=== PATIENT | female | born 1985 | race Caucasian/White ===

== ENCOUNTER 2018-12-23 18:56 | Emergency (ER) | payer BC, SELFPAY ==
[2018-12-23 18:57] VITALS: BP 128/67; PULSE 100; RESP 16; TEMP 37.1; O2SAT 99; BMI 26.4
--- NOTE | 2018-12-23 19:39 | US_ITS ---
STUDY: FIRST TRIMESTER OBSTETRICAL ULTRASOUND REASON FOR EXAM: Female, 33 years old. Nausea and vomiting. Pelvic pain. LMP: November 09, 2018 TECHNIQUE: Transvaginal TECHNICAL QUALITY: Adequate. PRIOR ULTRASOUND: None. FINDINGS: There is visualization of a single gestational sac in a normal intrauterine position on the right side of a bicornuate or septate uterus. The mean sac diameter (MSD) measures 1.8 cm, indicating an estimated gestational age (EGA) of 6 weeks, 5 days. The gestational sac shape is within normal limits. There is 0.6 cm hypoechoic region consistent with subchorionic hemorrhage There is a visualized yolk sac. The yolk sac measures 0.3 cm. The placenta is non-visualized. There is visualization of a live embryo. The crown-rump length (CRL) measures 0.6 cm, indicating an estimated gestational age (EGA) of 6 weeks, 3 days. There is demonstrated cardiac activity with a heart rate of 119 bpm. The estimated gestation age (EGA) by LMP is 6 weeks, 2 days. The estimated date of delivery (AMANDA) by LMP is August 16, 2019. The estimated gestation age (EGA) by US is 6 weeks, 4 days. The estimated date of delivery (AMANDA) by US is August 14, 2019. The uterus measures 6.9 x 6.1 x 4.2 cm. There is splitting of the endometrium suggesting a septate versus bicornuate uterus. There is no demonstrated uterine fibroid. The cervix is closed. The right ovary measures 2.2 x 1.5 x 1.2 cm. There is no right ovarian cyst. There is no visualized right adnexal mass or complex lesion. The left ovary measures 3.9 x 2.8 x 2.1 cm. There is 2.0 cm hypoechoic cyst. There is no fluid in the cul de sac. US/Transvaginal w/Preg US IMPRESSION: Single intrauterine gestation 6 weeks 4 days with estimated due date August 14, 2019. There is small region of subchorionic hemorrhage. There is a complex left adnexal cyst. Electronically Signed: Gabe Verma MD at 21:04 EDT , Service support ,
[2018-12-23] MEDS: 0.9% Normal Saline 1,000 ML 1000 ML IV (19:59)
[2018-12-23] MEDS: Ondansetron 4 MG/2 ML Vial IV (20:00)
[2018-12-23] MEDS: HYDROmorphone 0.5 MG/0.5 ML SYRINGE IV (20:01)
[2018-12-23 20:15] VITALS: RESP 18
[2018-12-23 20:24] LABS: Bacteria 0 SEEN /hpf (None Seen); Mucous, Urine 0 SEEN /hpf (<or=2+); Red Blood Cells-Urine 0 SEEN /hpf (0-5); White Blood Cells 0 SEEN /hpf (0-5)
--- NOTE | 2018-12-23 20:27 | ED.VISSUMM ---
- ER Visit Summary Date of Service: 12/23/18 Chief Complaint: Vomiting History of Present Illness: The patient is a [address] Sadi Arevalo. She is a at approximately 6 weeks by her last menstrual period. She reports that she has been vomiting all day today. She is vomited 8-10 times. No blood or emesis. She has crampy lower abdominal pain is 10 out of 10 at worst to 10 currently. Is worsened by nothing relieved by Tylenol. She has had dysuria that began today as well. No blood in her urine. No vaginal bleeding or discharge. Physical Examination: Vitals: Stable. Afebrile. General: Well-nourished and well-developed. Head: Normocephalic atraumatic. Neck: Supple, no lymphadenopathy. No JVD. Nontender. Cardiovascular: Regular rate and rhythm. No murmurs. Respiratory: No respiratory distress. Clear to auscultation bilaterally. Abdominal: Soft, mild diffuse tenderness palpation with moderate suprapubic tenderness ntender, nondistended, normal bowel sounds. No guarding, rebound, or peritoneal signs. Back: Nontender. Extremities: Nontender, no edema. Skin: Normal color, no rash. Neurologic: Alert and oriented ?3. Cranial nerves II through XII are intact. Normal strength and sensation. Psych: Normal affect. Test Results: Quant is 44,193. Blood type is a positive. UA shows no evidence of infection. No bacteria. Clinical Impression(s) from Imaging Studies Obstetrics Ultrasound 12/23/18 19:39 IMPRESSION: Single intrauterine gestation 6 weeks 4 days with estimated due date August 14, 2019. There is small region of subchorionic hemorrhage. There is a complex left adnexal cyst. Electronically Signed: Gabe Verma MD at 21:04 EDT , Service support , Emergency Department Course and Treatment: Patient was treated with a dose of Zofran IV. She is given a liter of normal saline. She is resting comfortably. Treatment Plan: Patient will be discharged with Zofran. Instructed from Dr. Sadi Arevalo 1-2 days if not improving. Return to the emergency department for any worsening symptoms. Disposition: To home in improved and stable condition. Impression: 1. First trimester . 2. Vomiting. This note was generated with [employer] dictation software. It may contain incorrect words, spelling, and punctuation that were not noted in review of the chart prior to signing ED Disposition - Plan for ED Patient: Disposition: Home or Assisted Living Instructions: ED Preg Morning Sickness Prescriptions: Ondansetron [Zofran Odt] 4 mg PO Q8H PRN PRN #10 tablet PRN Reason: Nausea Referrals: Adrianna Mota MD [STAFF PHYSICIAN] - 1-2 Days if not improving
[2018-12-23 20:37] LABS: Color, Urine Yellow (Yellow); Glucose, Dipstick Normal (Normal); Ketone-Dipstick 50 mg/dl (Negative); Leukocyte Esterase-Dipstick Negative /ul (Negative); Nitrite-Dipstick Negative (Negative); Occult Blood-Urine 25 /ul (Negative); Protein-Dipstick Negative (Negative); Urine Bilirubin Dipstick Negative (Negative); Urine Clarity Clear (Clear); Urine Urobilinogen Normal (Normal); Urine pH 6.5 (5.0 - 8.0)
[2018-12-23 20:43] LABS: Squamous Epithelial Cells - UA 0-5 SEEN /hpf (5-10)
[2018-12-23 21:29] VITALS: BP 112/61; PULSE 84; RESP 16; O2SAT 99
== END 2018-12-23 21:34 | disposition home or self-care (01) ==
LOC: ED 19:53
PROVIDERS: Emergency Provider Emergency Medicine; Family Provider Family Medicine; PCP Family Medicine
DX: O21.9 Vomiting of pregnancy, unspecified (principal); O99.331 Smoking (tobacco) complicating pregnancy, first trimester; Z3A.01 Less than 8 weeks gestation of pregnancy
CPT/HCPCS: 76817; 81001; 84702; 86900; 86901; 96361; 96374; 96375; 99285; J7030; J2405

== ENCOUNTER → 2019-01-05 | Outpatient (CLI) | payer BC, SELFPAY ==
[2019-01-05 14:57] VITALS: BMI 26.4
[2019-01-05 20:13] LABS: Chlamydia Trachomatis by PCR Negative (Negative); Neisserai gonorrhoeae by PCR Negative (Negative); Probe Check PASS; Sample Adequacy Control PASS; Specimen Processing Control PASS
== END | disposition home or self-care (01) ==
LOC: LABSPEC 16:41
PROVIDERS: Family Provider Family Medicine; PCP Family Medicine; Referring Provider Obstetrics & Gynecology; Visit Provider Obstetrics & Gynecology
DX: Z34.90 Encounter for supervision of normal pregnancy, unspecified, unspecified trimester (principal)
CPT/HCPCS: 87491; 87591

== ENCOUNTER → 2019-02-04 | Outpatient (CLI) | payer BC, SELFPAY ==
[2019-02-04 14:57] VITALS: BMI 26.4
[2019-02-04 15:42] LABS: Absolute Lymphocyte Count 2.82 X10^3/ul (0.83-4.51); Absolute Neutrophil Count 7.9 X10^3/uL (2.0-7.7); Basophil# 0.03 X10^3/uL; Basophil% 0.3 % (0-1); Eosinophil# 0.17 X10^3/uL; Eosinophils% 1.4 % (0-5); Lymphocyte # 2.82 X10^3/ul (4.0); Lymphocyte % 23.9 % (19-41); Mean Corp Hgb Conc 34.2 g/gl (32-36); Mean Corpuscular Hgb 29.1 pg (27.0-32.0); Mean Platelet Vol. 10.7 fl (6.2-12.0); Monocyte# 0.85 X10^3/uL; Monocyte% 7.2 % (0-10); Neutrophil # 7.89 X10^3/uL (2.7-7.7); Neutrophil % 66.9 % (47-70); Platelet Count 280 K/mm3 (150-450); RBC Distribution Width CV 13.3 % (11.6-14.6); RBC Distribution Width SD 41.2 fl (35.1-43.9); Red Blood Count 4.47 M/mm3 (4.2-5.4); White Blood Count 11.8 K/mm3 (4.4-11.0)
[2019-02-04 15:55] LABS: POSITIVE COUNT NO; POSITIVE DIFFERENTIAL NO; POSITIVE MORPHOLOGY NO
[2019-02-04 17:03] LABS: HIV - WCH Non-Reactive (Nonreactive); Rubella IgG 43.8 IU/mL
[2019-02-06 03:32] LABS: Rapid Plasmin Reagin (RPR) NONREACTIVE (NONREACTIVE)
[2019-02-06 10:50] LABS: HEPATITIS B SURFACE AG Negative (Negative)
== END | disposition home or self-care (01) ==
LOC: PAVLAB 14:57
PROVIDERS: Obstetrics & Gynecology; Family Provider Family Medicine; PCP Family Medicine; Referring Provider Nurse Practitioner Women's Health; Visit Provider Nurse Practitioner Women's Health
DX: Z34.81 Encounter for supervision of other normal pregnancy, first trimester (principal)
CPT/HCPCS: 36415; 85025; 86592; 86703; 86762; 86850; 86900; 87340

== ENCOUNTER 2019-03-08 11:11 | Emergency (ER) | payer BC, SELFPAY ==
[2019-02-04 14:57] VITALS: BMI 26.4
[2019-03-08 11:12] VITALS: BP 135/74; PULSE 93; RESP 16; TEMP 36.2; BMI 26.6
--- NOTE | 2019-03-08 11:47 | US_ITS ---
STUDY: SECOND AND THIRD TRIMESTER OBSTETRICAL ULTRASOUND - LIMITED REASON FOR EXAM: Female, 33 years old. Cramping, lower abdominal pain, 3 days, history of Crohn's disease, history of bicornuate uterus, . LMP: 11/09/2018 PRIOR ULTRASOUND: Ultrasound transvaginal 12/23/2017 TECHNIQUE: Transabdominal ultrasound evaluation was performed. FINDINGS: Single live intrauterine gestation, cephalic presentation, cardiac rate 152 bpm. Amniotic fluid axial vertical pocket 5.1 cm. Placenta grade 0 posterior not low-lying. Cervical os closed, 3.5 cm in length. The maternal adnexa are not characterized. BIOMETRY: BPD: 3.9 to: 18 weeks, days HC: 14.73: 18 weeks, days AC: 11.5 point: 17 weeks, days FL: 2.28: weeks, 16 days Cephalic index 79% Femur length/abdominal circumference 20% Femur length/biparietal diameter 58% Head circumference/abdominal circumference 1.28 Age by current ultrasound: 17 weeks, 4 days. AMANDA by LMP: 08/12/2019. age by prior US: 17 weeks, 2 days. AMANDA by prior US: 08/14/2019. age by LMP: 17 weeks, 0 days. AMANDA by current US: 08/16/2019. Estimated weight: 184 grams, +/- 27 grams, 55 percentile. Limited anatomic images were obtained for assessment of dates, viability and positioning only. In the limited survey no gross anatomic abnormality was observed. US/OB Limited With Biometrics IMPRESSION: Single live intrauterine gestation. No acute or maternal abnormality is evident. Electronically Signed: Kelechi Layton MD at 14:10 EDT Tel , Service support ,
--- NOTE | 2019-03-08 11:57 | ED.DCSUM_ITS ---
History of Present Illness Chief Complaint: Abd Pain Informant: Patient, Family Onset: Yesterday Current Severity: Mild Narrative: She presents complaining of pelvic cramps that began yesterday and seem to persist today, she is currently 16 weeks by her history she had an ultrasound through Dr. Sadi Arevalo's office that showed 12 weeks IUP she is G1, P0 she been try to get for 5 years, she is quite upset crying that she may be losing the , she indicates she has Crohn's disease is been very stable and that basically is having intermittent pelvic cramps to the right suprapubic and left lower abdomen she had no vaginal bleeding or vaginal discharge normal urinary output normal bowel bladder habits except to note some loose stools, her Crohn's disease has been in very good control with no exacerbations recently Past Medical History - Allergies and Home Meds Allergies/Adverse Reactions: Allergies morphine Adverse Reaction (Verified 03/08/19 11:14) Other NECTARINES Adverse Reaction (Uncoded 03/08/19 11:14) Angioedema Primary Care Physician: Azael Lr MD [Primary Care Provider] - Past Medical History: - - See above in full chart Smoking Status: Current every day smoker Review of Systems General: Denies: Chills, Fever, Sweats Eyes: Denies: Visual changes - bilaterally, Diplopia ENT: Denies: Rhinorrhea, Sore throat Cardiovascular: Denies: Chest pain, Palpitations Respiratory: Denies: Dyspnea, Cough, Dyspnea on exertion Gastrointestinal: Reports: Abdominal pain, - - Pelvic cramps as above. Denies: Nausea, Vomiting, Diarrhea, Melena, Hematochezia Genitourinary: Denies: Dysuria, Hematuria, Frequency Musculoskeletal: Denies: Back pain, Extremity Pain Skin: Denies: Rash, Wounds Neurological: Denies: Headache, Weakness, Numbness Physical Exam Vital Signs/Narrative: Vital Signs Temp Pulse Resp BP 03/08/19 11:12 97.1 F L 93 16 135/74 H General: Well nourished, Well developed, No Acute Distress Head: Normocephalic, Atraumatic Eyes: Perrl, EOMI ENT: Moist mucous membranes, No rhinorrhea Neck: Supple, Nontender Cardiovascular: Regular rate, Regular rhythm, No murmurs Respiratory: No distress, CTA bilaterally, Chest nontender Abdomen: Soft, Nontender, Nondistended, Normal bowel sounds, - - She is abdomen is soft and nontender she is crying she indicates that because of pain but rather because of her concern related to the Back: Nontender, Normal Inspection Extremities: Nontender, No edema Skin: Normal color, No rash Neurological: Alert, Oriented x3, Cranial nerves II-XII grossly intact, Normal Strength, Normal Sensation Psychological: Normal affect, Normal Mood Diagnostic/Tx/Re-eval - Medical Decision Making Given all the above screening labs IV fluids UA ultrasound pain management The patient screening labs are all generally unremarkable she was reports, the pelvic ultrasound shows 17-week single live IUP no acute abnormalities Explained all the above to the patient at this time she understands the need to follow-up with her BUSINESS COMPUTERS TEACHER tomorrow, return for change in symptoms pelvic rest no sex she vomited she expressed concerns about the possibility of miscarriage after explained her that there is nothing at this point time to suggest that, that this is an expectant management type process and she should follow-up with her BUSINESS COMPUTERS TEACHER's rest as above and return for change in symptoms she has assured me this is not related to her Crohn's as a precaution she will continue to take her usual Crohn's precautions Home stable Final impression Pelvic cramps, 17-week live IUP on ultrasound ED Disposition - Plan for ED Patient: Instructions: ABDOMINAL PAIN, Unknown Cause, (Female), Pelvic Pain in : Unclear (2-3 Trimester) Referrals: Azael Lr MD [Primary Care Provider] - Additional Instructions: Pelvic rest no sex follow-up with your BUSINESS COMPUTERS TEACHER tomorrow
[2019-03-08 11:59] LABS: Absolute Lymphocyte Count 2.72 X10^3/ul (0.83-4.51); Absolute Neutrophil Count 8.5 X10^3/uL (2.0-7.7); Basophil# 0.03 X10^3/uL; Basophil% 0.2 % (0-1); Eosinophil# 0.16 X10^3/uL; Eosinophils% 1.3 % (0-5); Hematocrit 35.9 % (37-47); Hemoglobin 12.3 g/dl (12.0-15.0); Lymphocyte # 2.72 X10^3/ul (4.0); Lymphocyte % 21.8 % (19-41); Mean Corp Hgb Conc 34.3 g/gl (32-36); Mean Corpuscular Hgb 29.9 pg (27.0-32.0); Mean Corpuscular Volume 87.1 fL (81-99); Mean Platelet Vol. 10.5 fl (6.2-12.0); Monocyte# 0.96 X10^3/uL; Monocyte% 7.7 % (0-10); Neutrophil # 8.54 X10^3/uL (2.7-7.7); Neutrophil % 68.5 % (47-70); Platelet Count 273 K/mm3 (150-450); RBC Distribution Width CV 13.2 % (11.6-14.6); RBC Distribution Width SD 42.2 fl (35.1-43.9); Red Blood Count 4.12 M/mm3 (4.2-5.4); White Blood Count 12.5 K/mm3 (4.4-11.0)
[2019-03-08 12:00] LABS: POSITIVE COUNT NO; POSITIVE DIFFERENTIAL NO; POSITIVE MORPHOLOGY NO
[2019-03-08] MEDS: HYDROmorphone 0.5 MG/0.5 ML SYRINGE IV (12:02)
[2019-03-08] MEDS: Ondansetron 4 MG/2 ML Vial IV (12:02)
[2019-03-08 12:14] LABS: Bacteria 0 SEEN /hpf (None Seen); Mucous, Urine 0 SEEN /hpf (<or=2+); Squamous Epithelial Cells - UA 0 SEEN /hpf (5-10); White Blood Cells 0 SEEN /hpf (0-5)
[2019-03-08 12:20] LABS: Color, Urine Yellow (Yellow); Glucose, Dipstick Normal (Normal); Ketone-Dipstick Negative (Negative); Leukocyte Esterase-Dipstick Negative /ul (Negative); Nitrite-Dipstick Negative (Negative); Occult Blood-Urine 10 /ul (Negative); Protein-Dipstick Negative (Negative); Urine Bilirubin Dipstick Negative (Negative); Urine Clarity Clear (Clear); Urine Urobilinogen Normal (Normal)
[2019-03-08 12:27] LABS: Red Blood Cells-Urine 0-5 SEEN /hpf (0-5)
[2019-03-08 12:37] LABS: AST(SGOT) 14 U/L (15-37); Alanine Aminotransfer ALT/SGPT 15 U/L (13-56); Albumin, Serum 3.1 g/dL (3.2-5.0); Alkaline Phosphatase 51 U/L (45-117); Bilirubin, Direct < 0.05 mg/dL (0.00-0.30); Globulin 3.4 g/dL (2.2-4.2); Lipase 98 U/L (73-393); Protein, Total 6.5 g/dL (6.4-8.2); hCG Titer Quant., Serum 9215 mIU/mL (1-3)
[2019-03-08] MEDS: HYDROmorphone 1 MG/ML Syringe IV (13:41)
[2019-03-08 15:01] VITALS: PULSE 68; O2SAT 98
== END 2019-03-08 15:02 | disposition home or self-care (01) ==
LOC: ED 12:00
PROVIDERS: Emergency Provider Emergency Medicine; Family Provider Family Medicine; PCP Family Medicine
DX: O26.892 Other specified pregnancy related conditions, second trimester (principal); R10.2 Pelvic and perineal pain; O99.332 Smoking (tobacco) complicating pregnancy, second trimester; F17.200 Nicotine dependence, unspecified, uncomplicated; O99.612 Diseases of the digestive system complicating pregnancy, second trimester; K50.90 Crohn's disease, unspecified, without complications; Z79.899 Other long term (current) drug therapy; Z3A.16 16 weeks gestation of pregnancy
CPT/HCPCS: 76816; 80076; 81001; 83690; 84702; 85025; 87086; 87088; 96374; 96375; 96376; 99282; J7030; A4216; J2405

== ENCOUNTER → 2019-04-06 | Outpatient (CLI) | payer BC, SELFPAY ==
[2019-04-06 13:46] VITALS: BMI 26.9
== END | disposition home or self-care (01) ==
LOC: LABSPEC 15:39
PROVIDERS: Family Provider Family Medicine; PCP Family Medicine; Referring Provider Nurse Practitioner Women's Health; Visit Provider Nurse Practitioner Women's Health
DX: N39.0 Urinary tract infection, site not specified (principal)
CPT/HCPCS: 87086; 87088

== ENCOUNTER → 2019-05-19 | Outpatient (CLI) | payer BC, SELFPAY ==
[2019-05-19 09:04] VITALS: BMI 27.6
[2019-05-19 10:11] LABS: Basophil# 0.06 X10^3/uL; Basophil% 0.4 % (0-1); Eosinophil# 0.22 X10^3/uL; Eosinophils% 1.3 % (0-5); Hematocrit 32.6 % (37-47); Hemoglobin 10.9 g/dL (12.0-15.0); Lymphocyte % 18.7 % (19-41); Mean Corp Hgb Conc 33.4 g/dL (32-36); Mean Corpuscular Hgb 29.8 pg (27.0-32.0); Mean Corpuscular Volume 89.1 fL (81-99); Mean Platelet Vol. 10.5 fl (6.2-12.0); Monocyte# 1.06 X10^3/uL; Monocyte% 6.4 % (0-10); NRBC Flagged by Analyzer 0 % (0-5); Neutrophil # 11.98 X10^3/uL (2.7-7.7); Neutrophil % 72.1 % (47-70); Platelet Count 309 K/mm3 (150-450); RBC Distribution Width CV 13.1 % (11.6-14.6); RBC Distribution Width SD 42.7 fl (35.1-43.9); Red Blood Count 3.66 M/mm3 (4.2-5.4); White Blood Count 16.6 K/mm3 (4.4-11.0)
[2019-05-19 10:19] LABS: Glucose Challenge Gest 1H 50g 144 mg/dL (70-140)
== END | disposition home or self-care (01) ==
LOC: PAVLAB 09:35
PROVIDERS: Family Provider Family Medicine; PCP Family Medicine; Referring Provider Nurse Practitioner Women's Health; Visit Provider Nurse Practitioner Women's Health
DX: O09.00 Supervision of pregnancy with history of infertility, unspecified trimester (principal); Z3A.27 27 weeks gestation of pregnancy
CPT/HCPCS: 36415; 82950; 85025

== ENCOUNTER → 2019-05-21 | Outpatient (CLI) | payer BC, SELFPAY ==
[2019-05-19 09:04] VITALS: BMI 27.6
[2019-05-21 07:33] LABS: Glucose GTT-Gestation. Fasting 120 mg/dL (<105)
[2019-05-21 08:42] LABS: Glucose GTT-Gestational 1 Hr 219 mg/dL (<190)
[2019-05-21 09:44] LABS: Glucose GTT-Gestational 2 Hr 155 mg/dL (<165)
[2019-05-21 11:19] LABS: Glucose GTT-Gestational 3 Hr 110 L (<145)
== END | disposition home or self-care (01) ==
LOC: LAB 06:54
PROVIDERS: Family Provider Family Medicine; PCP Family Medicine; Referring Provider Nurse Practitioner Women's Health; Visit Provider Nurse Practitioner Women's Health
DX: O99.810 Abnormal glucose complicating pregnancy (principal); Z3A.00 Weeks of gestation of pregnancy not specified
CPT/HCPCS: 36415; 82951; 82952

== ENCOUNTER 2019-06-03 11:55 | Outpatient (CLI) | payer BC, SELFPAY ==
[2019-05-19 09:04] VITALS: BMI 27.6
[2019-06-03 12:04] VITALS: BMI 27.0
--- NOTE | 2019-06-03 22:16 | OB.TRI.PN ---
Progress Notes Date of Service: 06/03/19 Progress Note: Patient presents for triage evaluation secondary to decreased movement FHT: 130 with 10 x 10 accelerations moderate variability reactive no decelerations category I tracing [place]: No contractions Assessment and plan: Decreased movement reactive NST, reassuring maternal and status patient discharged to home to follow-up as scheduled. Appropriate for gestational age. See problem list details for additional plan information. Multi Select Codes - Urinary/Genital Urinary/Genital CPT Codes: 59168-41 non-stress test Interp
== END 2019-06-03 12:53 | disposition home or self-care (01) ==
LOC: WPOUT 12:00 → OBT 12:01
PROVIDERS: Family Provider Family Medicine; PCP Family Medicine; Referring Provider Obstetrics & Gynecology; Visit Provider Obstetrics & Gynecology
DX: O36.8190 Decreased fetal movements, unspecified trimester, not applicable or unspecified (principal); Z3A.00 Weeks of gestation of pregnancy not specified
CPT/HCPCS: 59025; 59050; 99218; G0378

== ENCOUNTER 2019-06-06 12:50 | Outpatient (CLI) | payer BC, SELFPAY ==
[2019-06-06 14:24] VITALS: BMI 27.3
--- NOTE | 2019-06-08 01:02 | OB.TRI.PN ---
Progress Notes Date of Service: 06/06/19 Progress Note: Patient presents for triage evaluation secondary to persistent ear infection and abdominal cramping FHT: 140 Moderate variability reactive no decelerations category I tracing [place]: No regular contractions Assessment and plan: Ear infection with abdominal pain reactive NST, reassuring maternal and status patient discharged to home to follow-up as scheduled. See problem list details for additional plan information. - Problem List (1) Ear infection Status: Acute (2) Abdominal pain during in third trimester Status: Acute Comment: no PTL see 06/06 in triage Multi Select Codes - Urinary/Genital Urinary/Genital CPT Codes: 09413-17 non-stress test Interp
== END 2019-06-06 14:35 | disposition home or self-care (01) ==
LOC: WPOUT 13:18 → WP 13:21
PROVIDERS: Family Provider Family Medicine; PCP Family Medicine; Visit Provider Obstetrics & Gynecology
DX: O26.893 Other specified pregnancy related conditions, third trimester (principal); R10.9 Unspecified abdominal pain; H66.90 Otitis media, unspecified, unspecified ear; Z3A.00 Weeks of gestation of pregnancy not specified
CPT/HCPCS: 59025; 59050; 99218; G0378

== ENCOUNTER 2019-06-16 10:30 | Outpatient (RCR) | payer BC, SELFPAY ==
[2019-05-19 09:04] VITALS: BMI 27.6
[2019-06-09 08:16] VITALS: BMI 27.3
== END 2019-06-16 23:59 | disposition home or self-care (01) ==
LOC: DC 10:30
PROVIDERS: Family Provider Family Medicine; PCP Family Medicine; Visit Provider Nurse Practitioner Women's Health
DX: Z71.3 Dietary counseling and surveillance (principal); O24.419 Gestational diabetes mellitus in pregnancy, unspecified control; Z3A.00 Weeks of gestation of pregnancy not specified
CPT/HCPCS: 97802

== ENCOUNTER → 2019-07-21 13:44 | Outpatient (CLI) | payer BC, SELFPAY ==
[2019-07-09 09:20] VITALS: BMI 27.3
--- NOTE | 2019-07-21 13:45 | US_ITS ---
STUDY: SECOND AND THIRD TRIMESTER OBSTETRICAL ULTRASOUND REASON FOR EXAM: Female, 33 years old . growth. LMP: November 09, 2018. TECHNIQUE: Transabdominal TECHNICAL QUALITY: Adequate. PRIOR ULTRASOUND: Comparison is made with prior study dated March 08, 2019. FINDINGS: There is a single intrauterine fetus. The fetus is in a cephalic presentation. There is demonstrated cardiac activity with a heart rate of 143 bpm. There is a normal amniotic fluid volume. The largest amniotic fluid pocket measures 3.9 cm. The amniotic fluid index (MANSOOR) is 11.6 cm. The placenta is posterior in location and is not low lying. There are Grade 2 placental changes. The cervix was unable to be measured due to the positioning. The adnexal regions are not visualized. BIOMETRY: BPD: 9.0 cm: 36 weeks, 4 days HC: 32.1 cm: 36 weeks, 1 days AC: 30.5 cm: 34 weeks, 2 days FL: 6.5 cm: 33 weeks, 2 days CI: 83% FL/BPD: 72% FL/HC: FL/AC: 21% HC/AC: 1.05 age by current US: 35 weeks, 0 days. AMANDA by current US: August 25, 2019. Estimated weight: 2453 grams, +/- 363 grams, 12 %. age by prior US: 36 weeks, 6 days. AMANDA by prior US: August 12, 2019. Age by LMP: 36 weeks, 2 days. AMANDA by LMP: August 16, 2019. US/OB Limited With Biometrics IMPRESSION: Single live intrauterine gestation with a mean gestational age of 36 weeks and 6 days. Measurements obtained today fall within normal expected range. Electronically Signed: Leo Ruiz, at 12:59 EST , Service support ,
== END ==
PROVIDERS: Family Provider Family Medicine; PCP Family Medicine; Referring Provider Obstetrics & Gynecology; Visit Provider Obstetrics & Gynecology
DX: O24.410 Gestational diabetes mellitus in pregnancy, diet controlled (principal); Z3A.00 Weeks of gestation of pregnancy not specified
CPT/HCPCS: 76816

== ENCOUNTER → 2019-07-23 13:15 | Outpatient (CLI) | payer BC, SELFPAY ==
[2019-07-23 10:08] VITALS: BMI 27.3
== END ==
PROVIDERS: Family Provider Family Medicine; PCP Family Medicine; Referring Provider Obstetrics & Gynecology; Visit Provider Obstetrics & Gynecology
DX: O09.00 Supervision of pregnancy with history of infertility, unspecified trimester (principal)
CPT/HCPCS: 87081

== ENCOUNTER 2019-07-31 20:26 | Outpatient (CLI) | payer BC, SELFPAY ==
[2019-07-28 08:43] VITALS: BMI 27.3
[2019-07-31] MEDS: Lactated Ringers 1,000 ML 999 ML IV (21:05)
[2019-07-31 21:31] LABS: Absolute Lymphocyte Count 3.38 X10^3/uL (0.83-4.51); Absolute Neutrophil Count 8.4 X10^3/uL (2.0-7.7); Basophil# 0.05 X10^3/uL; Basophil% 0.4 % (0-1); Eosinophil# 0.14 X10^3/uL; Eosinophils% 1.1 % (0-5); Hematocrit 38.5 % (37-47); Hemoglobin 13.1 g/dL (12.0-15.0); Lymphocyte # 3.38 X10^3/ul (4.0); Lymphocyte % 26.2 % (19-41); Mean Corpuscular Hgb 29.1 pg (27.0-32.0); Mean Corpuscular Volume 85.6 fL (81-99); Mean Platelet Vol. 12.6 fl (6.2-12.0); Monocyte# 0.87 X10^3/uL; Monocyte% 6.7 % (0-10); NRBC Flagged by Analyzer 0 % (0-5); Neutrophil # 8.42 X10^3/uL (2.7-7.7); Neutrophil % 65.1 % (47-70); Platelet Count 305 K/mm3 (150-450); RBC Distribution Width CV 15.4 % (11.6-14.6); RBC Distribution Width SD 47.9 fl (35.1-43.9); White Blood Count 12.9 K/mm3 (4.4-11.0)
[2019-07-31 21:53] VITALS: BMI 27.3
[2019-07-31] MEDS: Ondansetron 4 MG/2 ML Vial IM (22:04)
[2019-07-31 22:30] LABS: Mucous, Urine 0 SEEN /hpf (<or=2+)
[2019-07-31] MEDS: Lactated Ringers 1,000 ML 125 ML IV (22:30)
[2019-07-31 22:42] LABS: Color, Urine Yellow (Yellow); Glucose, Dipstick Normal (Normal); Ketone-Dipstick 15 mg/dl (Negative); Leukocyte Esterase-Dipstick 25 /ul (Negative); Nitrite-Dipstick Negative (Negative); Occult Blood-Urine Negative /ul (Negative); Protein-Dipstick Negative (Negative); Urine Bilirubin Dipstick Negative (Negative); Urine Clarity Sl. Cloudy (Clear); Urine Urobilinogen Normal (Normal)
[2019-07-31 22:44] LABS: Squamous Epithelial Cells - UA 0-5 SEEN /hpf (5-10)
[2019-07-31 22:45] LABS: Bacteria 1+ /hpf (None Seen)
[2019-07-31] MEDS: Acetaminophen 500 MG Tablet 1000 MG PO (22:45)
[2019-07-31 22:46] LABS: Red Blood Cells-Urine 0-5 SEEN /hpf (0-5); White Blood Cells 0-5 SEEN /hpf (0-5)
--- NOTE | 2019-08-03 17:54 | OB.TRI.PN ---
Progress Notes Date of Service: 07/31/19 Progress Note: seen for nausea FHT: 130 Moderate variability reactive no decelerations category I tracing [place]: irregular Contractions A/P: nause reactive nst given IVFs doing better now Laboratory Studies: Laboratory Tests 07/31/19 07/31/19 Range/Units 22:20 21:05 WBC 12.9 H (4.4-11.0) K/mm3 RBC 4.50 (4.2-5.4) M/mm3 Hgb 13.1 (12.0-15.0) g/dL Hct 38.5 (37-47) % MCV 85.6 (81-99) fL MCH 29.1 (27.0-32.0) pg MCHC 34.0 (32-36) g/dL RDW Std Deviation 47.9 H (35.1-43.9) fl RDW Coeff of Dimitrios 15.4 H (11.6-14.6) % Plt Count 305 (150-450) K/mm3 MPV 12.6 H (6.2-12.0) fl Immature Gran % (Auto) 0.500 (0.0-0.9) % Neut % (Auto) 65.1 (47-70) % Lymph % (Auto) 26.2 (19-41) % [place] % (Auto) 6.7 (0-10) % Eos % (Auto) 1.1 (0-5) % Baso % (Auto) 0.4 (0-1) % Absolute Neuts (auto) 8.4 H (2.0-7.7) X10^3/uL Absolute Lymphs (auto) 3.38 (0.83-4.51) X10^3/uL Nucleated RBC % 0 (0-5) % Urine Color Yellow (Yellow) Urine Clarity Sl. Cloudy (Clear) Urine pH 7.0 (5.0 - 8.0) Ur Specific [place] 1.010 (1.002-1.030) Urine Protein Negative (Negative) mg/dl Urine Glucose (UA) Normal (Normal) mg/dl Urine Ketones 15 H (Negative) mg/dl Urine Occult Blood Negative (Negative) /ul Urine Nitrite Negative (Negative) Urine Bilirubin Negative (Negative) mg/dL Urine Urobilinogen Normal (Normal) mg/dl Ur Leukocyte Esterase 25 H (Negative) /ul Urine RBC 0-5 SEEN (0-5) /hpf Urine WBC 0-5 SEEN (0-5) /hpf Ur Squamous Epith Cells 0-5 SEEN (5-10) /hpf Urine Bacteria 1+ (None Seen) /hpf Urine Mucus 0 SEEN (<or=2+) /hpf Multi Select Codes - Urinary/Genital Urinary/Genital CPT Codes: 41972-71 non-stress test Interp
== END 2019-07-31 23:48 | disposition home or self-care (01) ==
LOC: WPOUT 21:01 → WP 21:01
PROVIDERS: Family Provider Family Medicine; PCP Family Medicine; Referring Provider Obstetrics & Gynecology; Visit Provider Obstetrics & Gynecology
DX: O26.899 Other specified pregnancy related conditions, unspecified trimester (principal); R11.0 Nausea; Z3A.00 Weeks of gestation of pregnancy not specified
CPT/HCPCS: 96360; 96372; 36415; 59025; 59050; 81001; 85025; 99218; J7120; G0378; J2405

== ENCOUNTER → 2019-08-12 16:23 | Outpatient (CLI) | payer BC, SELFPAY ==
[2019-08-12 08:43] VITALS: BMI 28.0
--- NOTE | 2019-08-12 16:26 | US_ITS ---
STUDY: SECOND AND THIRD TRIMESTER OBSTETRICAL ULTRASOUND - LIMITED REASON FOR EXAM: Female, 33 years old MANSOOR only. LMP: November 09, 2018. PRIOR ULTRASOUND: December 23, 2018, March 08, 2019 and July 21, 2019. TECHNIQUE: Transabdominal TECHNICAL QUALITY: Adequate. FINDINGS: There is a single intrauterine fetus. The fetus is in a cephalic presentation. There is demonstrated cardiac activity with a heart rate of 156 bpm. There is decreased amniotic fluid volume consistent with oligohydramnios. The largest amniotic fluid pocket measures 3.74 cm. The amniotic fluid index (MANSOOR) is 5.17 cm. The placenta is posterior in location and is not low lying. There are Grade 3 placental changes. The cervix obscured Age by LMP: 34 weeks, 6 days. AMANDA by LMP: August 17, 2019.. age by prior US: 34 weeks, 3 days. AMANDA by prior US: August 14, 2019.. US/OB Limited (No Biometrics) IMPRESSION: 1. Live single intrauterine in a vertex presentation. 2. Oligohydramnios. The MANSOOR is 5.17 cm. 3. Posterior grade 3 placenta. Electronically Signed: Kristian Dennis DO at 17:00 EST Tel [phone], Service support ,
== END ==
PROVIDERS: Family Provider Family Medicine; PCP Family Medicine; Referring Provider Obstetrics & Gynecology; Visit Provider Obstetrics & Gynecology
DX: O09.00 Supervision of pregnancy with history of infertility, unspecified trimester (principal); Z3A.00 Weeks of gestation of pregnancy not specified
CPT/HCPCS: 76815

== ENCOUNTER 2019-08-12 16:45 | Inpatient (IN) | payer BC, SELFPAY ==
[2019-08-12 08:43] VITALS: BMI 28.0
[2019-08-12 16:54] VITALS: BMI 27.4
[2019-08-12 17:46] LABS: Absolute Lymphocyte Count 2.93 X10^3/uL (0.83-4.51); Absolute Neutrophil Count 7.3 X10^3/uL (2.0-7.7); Basophil# 0.05 X10^3/uL; Basophil% 0.4 % (0-1); Eosinophils% 0.9 % (0-5); Hematocrit 39.5 % (37-47); Hemoglobin 13.5 g/dL (12.0-15.0); Lymphocyte # 2.93 X10^3/ul (4.0); Lymphocyte % 26.3 % (19-41); Mean Corp Hgb Conc 34.2 g/dL (32-36); Mean Corpuscular Hgb 29.3 pg (27.0-32.0); Mean Corpuscular Volume 85.9 fL (81-99); Mean Platelet Vol. 12.6 fl (6.2-12.0); Monocyte# 0.68 X10^3/uL; Monocyte% 6.1 % (0-10); NRBC Flagged by Analyzer 0 % (0-5); Neutrophil # 7.31 X10^3/uL (2.7-7.7); Neutrophil % 65.8 % (47-70); Platelet Count 251 K/mm3 (150-450); RBC Distribution Width CV 15.6 % (11.6-14.6); RBC Distribution Width SD 48.1 fl (35.1-43.9); White Blood Count 11.1 K/mm3 (4.4-11.0)
[2019-08-12] MEDS: 0.9% Normal Saline Single 100 ML IV.SOLN. IY (19:16)
[2019-08-12] MEDS: Oxytocin 30 units/NS 500 ml 30 UNITS/500 ML IV.SOLN IV (20:24)
[2019-08-12] MEDS: 0.9% Saline Lock 10 ML Syringe IV ×2 (20:24→23:36)
[2019-08-12] MEDS: Lactated Ringers 1,000 ML 50 ML IV (20:25)
[2019-08-12 20:45] LABS: Bedside Glucose 95 mg/dL (70-110)
[2019-08-12] MEDS: Acetaminophen 325 MG Tablet PO (22:44)
[2019-08-12] MEDS: Ondansetron 4 MG/2 ML Vial IV (23:36)
[2019-08-13 00:40] LABS: Bedside Glucose 88 mg/dL (70-110)
[2019-08-13] MEDS: Nalbuphine 10 MG/ML Ampul IV (01:23)
[2019-08-13 04:11] LABS: Bedside Glucose 115 mg/dL (70-110)
[2019-08-13 04:51] LABS: Bedside Glucose 100 mg/dL (70-110)
[2019-08-13 06:00] LABS: Bedside Glucose 98 mg/dL (70-110)
[2019-08-13] MEDS: Ondansetron 4 MG/2 ML Vial IV ×2 (07:04→12:03)
[2019-08-13] MEDS: Lactated Ringers 500 ML 999 ML IV ×2 (07:57→12:06)
[2019-08-13] MEDS: fentaNYL-bupivacaine (epidural) 100 ML BAG EPIDURAL (08:48)
[2019-08-13 09:26] LABS: Bedside Glucose 108 mg/dL (70-110)
[2019-08-13] MEDS: Lactated Ringers 1,000 ML 200 ML IV (10:19)
[2019-08-13 10:56] LABS: Bedside Glucose 102 mg/dL (70-110)
[2019-08-13 12:00] LABS: Bedside Glucose 95 mg/dL (70-110)
[2019-08-13] MEDS: Oxytocin 30 units/NS 500 ml 30 UNITS/500 ML IV.SOLN 334 UNITS IV (14:38)
[2019-08-13 14:46] LABS: Bedside Glucose 98 mg/dL (70-110)
[2019-08-13 14:46] LABS: Bedside Glucose 94 mg/dL (70-110)
[2019-08-13 15:36] LABS: Bedside Glucose 90 mg/dL (70-110)
[2019-08-13] MEDS: Acetaminophen 325 MG Tablet PO (16:36)
--- NOTE | 2019-08-13 17:31 | HP.PCM_ITS ---
- Problem List (1) Gestational diabetes Status: Acute Qualifiers: Gestational diabetes mellitus control: diet-controlled Trimester: second trimester Qualified Code(s): O24.410 - Gestational diabetes mellitus in , diet controlled Comment: check blood sugars, diet controlled, nutrition consult. growth normal @ 36 wks, repeat with MANSOOR @ 40 wks. deliver bt 39-40 weeks (2) Anemia affecting Status: Acute Qualifiers: Trimester: second trimester Qualified Code(s): O99.012 - Anemia complicating , second trimester Comment: iron added with PNV, check cbc at 36 weeks (3) Anxiety during Status: Acute Comment: sees psychiatry, cymbalta and xanax in the past (4) Crohn's disease Status: Acute Qualifiers: Gastrointestinal tract location: unspecified location Digestive disease complication type: without complication Qualified Code(s): K50.90 - Crohn's disease, unspecified, without complications Comment: no meds, remission (5) Tobacco use affecting , antepartum Status: Acute Comment: encouraged cessation/quit (6) Status: Acute Qualifiers: Weeks of gestation: 39 weeks Qualified Code(s): Z3A.39 - 39 weeks gestation of Comment: Carrier and NIPT low risk. afp screen negative. nl anatomy. (7) Supervision of with history of infertility Status: Acute Comment: PRR AMANDA 08/16/19 boy Janee Jonny (8) Oligohydramnios Status: Acute History Date of Admission: 08/12/19 Final AMANDA: 08/16/19 Gestational age: 39 Weeks and 5 Days History of this : This is a 33 year-old, G1Po, at 39 weeks gestational age presents for IOL secondary to GDMA1 and oligohydramnios. Medical History: Medical History (Last Reviewed 08/12/19 @ 08:43 by Anuja Rothman) Anxiety F41.9 Crohns disease K50.90 Depression F32.9 Allergies morphine Adverse Reaction (Verified 08/12/19 08:43) Other NECTARINES Adverse Reaction (Uncoded 07/31/19 21:50) Angioedema Home Medications: Home Medications Pnv No.95/Ferrous Fum/Folic AC [ Caplet] 1 ea PO DAILY 12/23/18 dicyclomine 20 mg tablet 20 mg PO DAILY PRN PRN 01/05/19 Blood Sugar Diagnostic [True Metrix Glucose Test Strip] See Rx Instructions .ROUTE .MEDSUPPLY 06/03/19 Blood-Glucose Meter [True Metrix Air Glucose Meter] See Rx Instructions .ROUTE .MEDSUPPLY 06/03/19 Citalopram [Celexa] 20 mg PO DAILY 08/12/19 Ferrous Sulfate [Iron] 325 mg PO DAILY 08/12/19 Smoking Status: Former smoker NST - FHR Rate Baby A Baseline: 130 Variability:: Moderate Accelerations:: 15 x 15 Decelerations:: None NST Reactive:: Yes FHR Category:: Category I History Past Pregnancies: Past Pregnancies Delivery Date Name GA/ Weeks Outcome Route Wt Sex Labor Length Anesthesia Delivery Location Provider FOB Labs: Laboratory Results 08/14/19 04:42 POC Glucose 89 Mom's Labs & Results 08/12/19 08/12/19 08/12/19 17:20 17:20 20:26 WBC 11.1 H RBC 4.60 Hgb 13.5 Hct 39.5 MCV 85.9 MCH 29.3 MCHC 34.2 RDW Std Deviation 48.1 H RDW Coeff of Dimitrios 15.6 H Plt Count 251 MPV 12.6 H Immature Gran % (Auto) 0.500 Neut % (Auto) 65.8 Lymph % (Auto) 26.3 [place] % (Auto) 6.1 Eos % (Auto) 0.9 Baso % (Auto) 0.4 Absolute Neuts (auto) 7.3 Absolute Lymphs (auto) 2.93 Nucleated RBC % 0 POC Glucose 95 Blood Type A POSITIVE Antibody Screen NEGATIVE 08/13/19 08/13/19 08/13/19 00:31 03:58 04:44 WBC RBC Hgb Hct MCV MCH MCHC RDW Std Deviation RDW Coeff of Dimitrios Plt Count MPV Immature Gran % (Auto) Neut % (Auto) Lymph % (Auto) [place] % (Auto) Eos % (Auto) Baso % (Auto) Absolute Neuts (auto) Absolute Lymphs (auto) Nucleated RBC % POC Glucose 88 115 H 100 Blood Type Antibody Screen 08/13/19 08/13/19 08/13/19 05:45 09:09 10:41 WBC RBC Hgb Hct MCV MCH MCHC RDW Std Deviation RDW Coeff of Dimitrios Plt Count MPV Immature Gran % (Auto) Neut % (Auto) Lymph % (Auto) [place] % (Auto) Eos % (Auto) Baso % (Auto) Absolute Neuts (auto) Absolute Lymphs (auto) Nucleated RBC % POC Glucose 98 108 102 Blood Type Antibody Screen 08/13/19 08/13/19 08/13/19 11:42 12:58 13:49 WBC RBC Hgb Hct MCV MCH MCHC RDW Std Deviation RDW Coeff of Dimitrios Plt Count MPV Immature Gran % (Auto) Neut % (Auto) Lymph % (Auto) [place] % (Auto) Eos % (Auto) Baso % (Auto) Absolute Neuts (auto) Absolute Lymphs (auto) Nucleated RBC % POC Glucose 95 94 98 Blood Type Antibody Screen 08/13/19 08/14/19 15:32 04:42 WBC RBC Hgb Hct MCV MCH MCHC RDW Std Deviation RDW Coeff of Dimitrios Plt Count MPV Immature Gran % (Auto) Neut % (Auto) Lymph % (Auto) [place] % (Auto) Eos % (Auto) Baso % (Auto) Absolute Neuts (auto) Absolute Lymphs (auto) Nucleated RBC % POC Glucose 90 89 Blood Type Antibody Screen Course Did the patient receive Yes care? Labs Blood Type: A RH: POSITIVE RPR/VDRL/Syphilis Nonreactive Rubella status Immune HbSAg Negative Date Done: 02/04/19 Chlamydia Negative Gonorrhea Negative HIV/AIDS Non-Reactive Group B Strep: Negative Current Obstetrical History Gestational Diabetes Yes Incompetent Cervix No Infertility No IUGR No Macrosomia No Hypertension/Pre-eclampsia No Placenta Previa/Abruption No PTL/PROM No Uterine anomaly No Oligohydramnios Yes Polyhydramnios No Multiple gestation No Past Medical History Asthma No Diabetes No Hypertension No Heart disease No Mitral valve prolapse No Neurologic/Seizure disorder/ No Migraines Kidney disease No Liver disease No Varicosities No Clotting disorders/Hx of DVT No Thyroid Dysfunction No Other medical diseases Yes: crohnes Psychiatric disorders Yes: anxiety, depression Major trauma No Abnormal PAP smear No Sleep apnea No Mammogram in the last 2 years No Social History Marital Status: Alleged father jonny avitia Hx Smoking No Smoking Status Former smoker Expected Delivery Method: Spontaneous Vaginal Review of Systems Constitutional: Denies: Fever, Malaise Eyes: Denies: Blurred vision, Vision Change HEENT: Denies: Head Aches, Visual Changes Cardiovascular: Denies: Chest Pain, Palpitations Respiratory: Denies: Cough, Shortness of Breath, Wheezing Gastrointestinal: Denies: Abdominal Pain, Diarrhea, Nausea, Vomiting Genitourinary: Denies: Dysuria, Hematuria Musculoskeletal: Denies: Joint Pain, Muscle pain Skin: Denies: Lesions, Rash Neurological: Denies: Blurred vision, Focal weakness, Headaches Psychiatric: Denies: Anxiety, Depression Endocrine: Denies: Heat/ Cold Intolerance Hematologic/ Lymphatic: Denies: Easy Bruising, Easy Bleeding Physical Exam General: Alert, Cooperative, No apparent distress HEENT: Atraumatic, Normocephalic. Negative for: Thyromegaly, Lymphadenopathy Cardiovascular: Regular rate Lungs: Normal air movement Abdomen: Soft, Non Tender, Gravid Neurological: Deep Tendon Reflexes 2+/4 and Symmetrical, Neuro grossly intact. Negative for: Clonus [employer] WORKER: Normal external genitalia. Negative for: Vulvar lesions Estimated gestational size: Appropriate for gestational size Presentation: Cephalic Assessment/Plan All Active Problems (Last Reviewed 08/12/19 @ 08:43 by Anuja Rothman) Oligohydramnios (Acute) Gestational diabetes (Acute) Anemia affecting (Acute) Anxiety during (Acute) Crohn's disease (Acute) Tobacco use affecting , antepartum (Acute) (Acute) Supervision of with history of infertility (Acute) Abdominal pain during in third trimester (Resolved) Ear infection (Resolved) This is a 33 year-old, , at 39 weeks gestational age presents for IOL sec gdma1. gbs neg oligo gdma1 BS q 1-4 hrs pit and fb IOL epi PRN
--- NOTE | 2019-08-13 17:33 | OP.PCM_ITS ---
Multi Select Codes - Urinary/Genital Urinary/Genital CPT Codes: 99097 Vaginal Delivery global pkg - vacuum
--- NOTE | 2019-08-13 17:33 | PCM.OPRPT ---
Multi Select Codes - Urinary/Genital Urinary/Genital CPT Codes: 87353 Vaginal Delivery global pkg - vacuum
[2019-08-13 19:54] VITALS: BP 128/53; PULSE 76; RESP 16; TEMP 36.8
[2019-08-13] MEDS: oxyCODONE 5 MG Tablet PO (20:03)
[2019-08-13 23:30] VITALS: BP 119/61; PULSE 73; RESP 16; TEMP 36.7
[2019-08-14 02:56] VITALS: BP 113/55; PULSE 65; RESP 16; TEMP 36.6
[2019-08-14 04:51] LABS: Bedside Glucose 89 mg/dL (70-110)
[2019-08-14] MEDS: oxyCODONE 5 MG Tablet PO ×3 (06:24→20:32)
[2019-08-14 07:59] VITALS: BP 108/52; PULSE 60; RESP 18; TEMP 36.4
[2019-08-14 13:15] VITALS: BP 113/56; PULSE 73; RESP 18; TEMP 36.4
[2019-08-14] MEDS: Naproxen 250 MG Tablet 500 MG PO ×2 (14:31→22:31)
[2019-08-14] MEDS: Acetaminophen 500 MG Tablet 1000 MG PO (18:32)
[2019-08-14 20:20] VITALS: BP 116/66; PULSE 71; RESP 18; TEMP 36.5; O2SAT 98
[2019-08-15 02:01] VITALS: BP 128/64; PULSE 77; RESP 16; TEMP 36.6; O2SAT 98
--- NOTE | 2019-08-15 07:02 | PCM.PN.OB ---
Patient Problems: Active and Suspected Problems (Last Reviewed 08/12/19 @ 08:43 by Anuja Rothman) Oligohydramnios (Acute) Subjective: doing well no complaints pain controlled no CP SOB N V ambulating well tolerating po lochia moderate, going well - Physical Exam Vitals/I&O's: Vital Signs Temp Pulse Resp BP Pulse Ox 97.8 F 77 16 128/64 H 98 08/15/19 02:01 08/15/19 02:01 08/15/19 02:01 08/15/19 02:01 08/15/19 02:01 Oxygen Delivery Method Room Air Weight: 160 lb 0.889 oz Body Mass Index (BMI) 27.4 Intake and Output for Last 24 Hours 08/13/19 08/14/19 08/15/19 23:59 23:59 23:59 Intake Total 3603.34 / 3603.34 Output Total 1400 / 1400 Balance 2203.34 / 2203.34 General: Alert, Oriented x3 Current Medications Acetaminophen (Tylenol) 1,000 mg PO Q8H PRN PRN PRN Reason: Pain Score 1-3/10 Last Admin: 08/14/19 18:32 Dose: 1,000 mg Documented by: Bisacodyl (Dulcolax) 10 mg RECTAL UD PRN PRN Reason: If no BM Dibucaine (Dibucaine) 1 applic TOPICAL TID PRN PRN; Protocol PRN Reason: Discomfort Glucagon () 1 mg IM .X1 PRN PRN Reason: Hypoglycemia Hydrocortisone (Hytone) 1 applic TOPICAL TID PRN PRN; Protocol PRN Reason: Discomfort Dextrose (Dextrose 10%-Water) 250 mls @ 999 mls/hr IV X1 PRN; Protocol PRN Reason: HYPOGLYCEMIA Methylergonovine Maleate (Methergine) 0.2 mg IM X1 PRN PRN Reason: Excess bleeding/uterine atony Naproxen (Naprosyn) 500 mg PO Q8H PRN PRN PRN Reason: Pain Score 1-3/10 Last Admin: 08/14/19 22:31 Dose: 500 mg Documented by: Ondansetron HCl (Zofran) 4 mg IV Q4H PRN PRN PRN Reason: Nausea Oxycodone HCl (Oxyir) 5 - 10 mg PO Q4H PRN PRN PRN Reason: Pain Score 4-10/10 Last Admin: 08/14/19 20:32 Dose: 10 mg Documented by: Senna/Docusate Sodium (Senokot-S, Shilpi-Colace) 1 - 2 tablet PO DAILY PRN PRN PRN Reason: Constipation Simethicone (Mylicon) 80 mg PO PCHS PRN PRN Reason: Indigestion/Stomach pain Sodium Chloride () 5 - 15 ml IV UD PRN PRN Reason: SALINE FLUSH Medical Necessity - Tobacco Use Smoking Status: Former smoker Assessment/Plan All Active Problems (Last Reviewed 08/12/19 @ 08:43 by Aunja Rothman) Oligohydramnios (Acute) Gestational diabetes (Acute) Anemia affecting (Acute) Anxiety during (Acute) Crohn's disease (Acute) Tobacco use affecting , antepartum (Acute) (Acute) Supervision of with history of infertility (Acute) Abdominal pain during in third trimester (Resolved) Ear infection (Resolved) s/p PPD # 2 1. routine post delivery care 2. breast feeding- support given 3. rh positive 4. rubella immune
--- NOTE | 2019-08-15 07:04 | DCINST_ITS ---
Discharge Diet: No Restrictions Discharge Activity: Return to Normal Activity, May not drive while taking narcotic pain medications., May Shower May resume sexual activity in: 4-6 weeks Call your doctor if your incision/area has: Continuous Slow Oozing, Sudden Increased Bleeding, Increased Pain/ Swelling, Increased Redness, Foul Smelling Discharge Additional Instructions: If you experience any of the following, contact your healthcare provider. * Bleeding that soaks a pad every hour for 2 hours * Fever 100.4 or higher * Unrelieved incision or abdominal pain * Swelling, redness, discharge or bleeding from your incision or episiotomy site * Your incision begins to separate * Problems urinating (including inability to urinate or burning while urinating). * Visual changes * Severe headache * Flu-like symptoms * Pain or redness in one of both of your breasts * Pain, warmth, tenderness or swelling in your legs, especially the calf area * Frequent nausea and vomiting * Symptoms of depression or anxiety If you experience any of the following, call 911 or go to the nearest Emergency Room. * Chest pain * Problems breathing * Seizure activity * Partial or complete paralysis of a body part, slurred speech, weakness or drooping of the face, or a sudden inability to walk or hold your balance Allergies/Adverse Reactions: Allergies morphine Adverse Reaction (Verified 08/12/19 08:43) Other NECTARINES Adverse Reaction (Uncoded 07/31/19 21:50) Angioedema Medications to take at Discharge Pnv No.95/Ferrous Fum/Folic AC [ Caplet] 1 ea PO DAILY 12/23/18 dicyclomine 20 mg tablet 20 mg PO DAILY PRN PRN 01/05/19 Blood Sugar Diagnostic [True Metrix Glucose Test Strip] See Rx Instructions .ROUTE .MEDSUPPLY 06/03/19 Blood-Glucose Meter [True Metrix Air Glucose Meter] See Rx Instructions .ROUTE .MEDSUPPLY 06/03/19 Citalopram [Celexa] 20 mg PO DAILY 08/12/19 Ferrous Sulfate [Iron] 325 mg PO DAILY 08/12/19 Please Follow Up With: Adrianna Mota MD - [phone] When: Call to make an appointment with your doctor in 6 weeks. If you had elevated Blood pressure or 4th degree laceration you will need to be seen in 2 weeks. Primary Care Physician: Azael Lr MD [Primary Care Provider] - Test Results: Test results from this visit will be discussed in further detail at your follow- up appointment, if applicable.
[2019-08-15 08:00] VITALS: BP 133/65; PULSE 72; RESP 16; TEMP 36.2
[2019-08-15] MEDS: oxyCODONE 5 MG Tablet PO (11:00)
--- NOTE | 2019-08-19 17:47 | NURSING ---
Mother feeding baby , father states doing well . Baby eating well. Satisfied with care.
== END 2019-08-15 11:30 | disposition home or self-care (01) | DRG 806 ==
PROVIDERS: Admitting Provider Obstetrics & Gynecology; Family Provider Family Medicine; PCP Family Medicine; Referring Provider Obstetrics & Gynecology; Visit Provider Obstetrics & Gynecology
DX: O41.03X0 Oligohydramnios, third trimester, not applicable or unspecified (principal); K50.90 Crohn's disease, unspecified, without complications; Z37.0 Single live birth; O24.420 Gestational diabetes mellitus in childbirth, diet controlled; O99.62 Diseases of the digestive system complicating childbirth; O99.02 Anemia complicating childbirth; D64.9 Anemia, unspecified; O76 Abnormality in fetal heart rate and rhythm complicating labor and delivery; O69.81X0 Labor and delivery complicated by cord around neck, without compression, not applicable or unspecified; O70.1 Second degree perineal laceration during delivery; Z3A.39 39 weeks gestation of pregnancy
CPT/HCPCS: 59025; 59050; 82962; 85025; 86850; 86900; 86901; 99218; J7120; A4216; G0378; J2405

== ENCOUNTER → 2019-09-29 | Outpatient (CLI) | payer BC, SELFPAY ==
[2019-09-29 11:02] VITALS: BMI 27.4
[2019-10-02 13:33] LABS: HPV APTIMA, High Risk Negative (Negative)
== END | disposition home or self-care (01) ==
LOC: LABSPEC 13:53
PROVIDERS: PCP Family Medicine; Referring Provider Obstetrics & Gynecology; Visit Provider Obstetrics & Gynecology
DX: Z12.4 Encounter for screening for malignant neoplasm of cervix (principal)
CPT/HCPCS: 87624; 88175; G0145

== ENCOUNTER 2020-01-10 11:22 | Emergency (ER) | payer BC, SELFPAY ==
[2019-09-29 11:02] VITALS: BMI 27.4
[2020-01-10 11:23] VITALS: BP 154/100; PULSE 76; RESP 16; TEMP 36.6; O2SAT 98; BMI 23.1
--- NOTE | 2020-01-10 11:41 | CT_ITS ---
STUDY: CT ABDOMEN AND PELVIS WITHOUT CONTRAST REASON FOR EXAM: Female, 34 years old. Crohn''s disease. Pain. RADIATION DOSAGE (If Supplied By Facility): CTDIvol = ( 11.79 ) mGy, DLP = ( 794.54 ) mGycm TECHNIQUE: Transaxial images were obtained from the dome of the diaphragm to the symphysis pubis without oral contrast, and without intravenous contrast. Sagittal and coronal images were reconstructed. Individualized dose optimization techniques were used for this CT. COMPARISON: None. FINDINGS: Evaluation of the abdominal viscera is limited in the absence of intravenous contrast. There is a calcified granuloma in the left lower lobe. The visualized portions of the heart and pericardium are within normal limits. There are no calcified gallstones present. There are subtle branching hypodensities in the liver corresponding to the hepatic veins. This may be due to lack of contrast within the veins. However, further evaluation with a hepatic Doppler ultrasound is recommended to evaluate for thrombus. The liver otherwise demonstrates an unremarkable unenhanced appearance. The spleen is normal in size. The pancreas demonstrates an unremarkable unenhanced appearance. The adrenal glands are within normal limits. There are no renal or ureteral stones. There is no hydronephrosis. Normal visualized stomach. There is no bowel obstruction. There is mild bowel wall thickening in the sigmoid colon. The appendix is visualized and appears normal. The aorta is normal in caliber. There is a 2.5 cm complex cyst in the left adnexa. There is no abdominal or pelvic free air, free fluid, fluid collection or lymphadenopathy. There are no destructive osseous lesions. CT/Abdomen/Pelvis W IV Cont ONLY IMPRESSION: Mild bowel wall thickening in the sigmoid colon, consistent with colitis. No bowel obstruction. Normal appendix. Subtle branching hypodensities noted in the liver corresponding to the hepatic veins. This may be due to lack of contrast within the veins, but further evaluation with hepatic Doppler ultrasound is recommended to evaluate for thrombus. 2.5 cm complex left adnexal cyst. Electronically Signed: Robb Moore, at 13:34 EDT Tel , Service support ,
[2020-01-10 11:49] LABS: Absolute Lymphocyte Count 3.58 X10^3/uL (0.83-4.51); Absolute Neutrophil Count 6.8 X10^3/uL (2.0-7.7); Basophil# 0.07 X10^3/uL; Basophil% 0.6 % (0-1); Eosinophil# 0.18 X10^3/uL; Eosinophils% 1.6 % (0-5); Hematocrit 40.3 % (37-47); Hemoglobin 13.7 g/dL (12.0-15.0); Lymphocyte # 3.58 X10^3/ul (4.0); Lymphocyte % 31.2 % (19-41); Mean Corpuscular Hgb 29.2 pg (27.0-32.0); Mean Corpuscular Volume 85.9 fL (81-99); Mean Platelet Vol. 9.4 fl (6.2-12.0); Monocyte# 0.78 X10^3/uL; Monocyte% 6.8 % (0-10); NRBC Flagged by Analyzer 0 % (0-5); Neutrophil # 6.84 X10^3/uL (2.7-7.7); Neutrophil % 59.6 % (47-70); Platelet Count 342 K/mm3 (150-450); RBC Distribution Width CV 13.3 % (11.6-14.6); RBC Distribution Width SD 41.6 fl (35.1-43.9); Red Blood Count 4.69 M/mm3 (4.2-5.4); White Blood Count 11.5 K/mm3 (4.4-11.0)
--- NOTE | 2020-01-10 11:50 | ED.DCSUM_ITS ---
History of Present Illness <Belinda Gonzales - Last Filed: 01/10/20 11:50> Informant: Patient Onset: Yesterday Context: Gradual Onset Timing: Continuous Quality: sharp/cramping Location: abdomen diffusely Current Severity: Severe Maximum Severity: Severe Worsened by: food Relieved by: nothing Associated Symptoms: Nausea and diarrhea Narrative: 34-year-old female history of Crohn's disease presents to the emergency department with abdominal pain. She has had worsening abdominal pain since yesterday. It is diffuse intermittent cramping and sharp in nature. Worse with food. She has had nausea. Decreased appetite. Loose diarrhea. No melena or h ematochezia. No hematemesis or coffee-ground emesis. No urinary symptoms. She is not lightheaded or dizzy. No fevers. No upper respiratory symptoms. She states that she had a delivery about 4 months ago and during her entire she did not have any flare from her Crohn's disease. Her last endoscopy and colonoscopy was about a year and a half ago. She is not on any medicines currently for Crohn's disease. She follows with Dr. Evans from [facility]. She denies sick contacts. She does admit she is under a lot of stress as her recently diagnosed with bladder cancer. Prior similar symptoms: Yes Recent Illness/Hospitalization: No <Mickey Geiger - Last Filed: 01/10/20 14:23> Chief Complaint: Abd Pain Past Medical History Smoking Status: Current every day smoker <Belinda Gonzales - Last Filed: 01/10/20 11:50> Prior records reviewed: Yes Past Medical History: - - crohn's disease Surgical History: no surgical history Lives: With Family Alcohol: None Drugs: None <Mickey Geiger - Last Filed: 01/10/20 14:23> - Allergies and Home Meds Allergies/Adverse Reactions: Allergies morphine Adverse Reaction (Verified 01/10/20 11:23) Other NECTARINES Adverse Reaction (Uncoded 01/10/20 11:23) Angioedema Primary Care Physician: Azael Lr MD [Primary Care Provider] - Review of Systems All systems negative except as indicated General: Denies: Chills, Fever, Malaise Eyes: Denies: Visual changes - bilaterally, Blurred Vision - bilaterally, Diplopia ENT: Denies: Rhinorrhea, Sore throat Cardiovascular: Denies: Chest pain, Palpitations, Heart racing Respiratory: Denies: Dyspnea, Cough, Sputum Gastrointestinal: Reports: Abdominal pain, Nausea, Diarrhea. Denies: Vomiting, Constipation, Melena, Hematochezia Genitourinary: Denies: Dysuria, Hematuria, Frequency Musculoskeletal: Denies: Myalgias, Arthralgias Skin: Denies: Rash, Abscess, Abrasions Neurological: Denies: Headache, Weakness, Parasthesia Endocrine: Denies: Polyuria, Polydipsia Hematologic: Denies: Easy bruising, Easy bleeding <Mickey Geiger - Last Filed: 01/10/20 14:23> Physical Exam Vital Signs/Narrative: Vital Signs Temp Pulse Resp BP Pulse Ox 01/10/20 11:23 97.9 F 76 16 154/100 H 98 <Belinda Gonzales - Last Filed: 01/10/20 11:50> Vital Signs/Narrative: Vital Signs Temp Pulse Resp BP Pulse Ox 01/10/20 11:23 97.9 F 76 16 154/100 H 98 Inital Vital Signs reviewed: Yes General: Well nourished, Well developed, No Acute Distress Head: Normocephalic, Atraumatic Eyes: Perrl, EOMI ENT: Moist mucous membranes Neck: Supple, Nontender, No lymphadenopathy, No JVD Cardiovascular: Regular rhythm, Tachycardia Respiratory: No distress, CTA bilaterally, Chest nontender Abdomen: Soft, Nondistended, Normal bowel sounds, No masses, Tender. Negative for: Guarding, Rebound tenderness Back: Nontender, Normal Inspection Extremities: Nontender, No edema Skin: Normal color, No rash, No Trauma Neurological: Alert, Oriented x3 Psychological: Normal affect, Normal Mood <Mickey Geiger - Last Filed: 01/10/20 14:23> Diagnostic/Tx/Re-eval - Medical Decision Making Patient was seen with [facility] medical administrative assistant agree with history physical as above, patient is history of Crohn's disease delivered a baby September, has weeks worth of diffuse nonspecific abdominal discomfort consistent with her Crohn's bowel bladder habits been normal no fever no cough she has been in contact with her physicians through the coronavirus emergency she is not able to see them she is not had any specific therapy she is had normal bowel bladder habits no blood on exam the abdomen soft nontender except for subjective diffuse discomfort no rebound guarding organomegaly at this time screening labs CT IV fluids pain management see the chart for full details <Belinda Gonzales - Last Filed: 01/10/20 11:50> Impressions Abdomen/Pelvis CT 01/10/20 11:41 IMPRESSION: Mild bowel wall thickening in the sigmoid colon, consistent with colitis. No bowel obstruction. Normal appendix. Subtle branching hypodensities noted in the liver corresponding to the hepatic veins. This may be due to lack of contrast within the veins, but further evaluation with hepatic Doppler ultrasound is recommended to evaluate for thrombus. 2.5 cm complex left adnexal cyst. Electronically Signed: Robb Oscar, at 13:34 EDT Tel , Service support , 01/10/20 11:41 Abdomen/Pelvis W IV Cont ONLY [CT] Stat Laboratory Results 01/10/20 01/10/20 01/10/20 11:42 11:42 11:45 WBC 11.5 H RBC 4.69 Hgb 13.7 Hct 40.3 MCV 85.9 MCH 29.2 MCHC 34.0 RDW Std Deviation 41.6 RDW Coeff of Dimitrios 13.3 Plt Count 342 MPV 9.4 Immature Gran % (Auto) 0.200 Neut % (Auto) 59.6 Lymph % (Auto) 31.2 Kenton % (Auto) 6.8 Eos % (Auto) 1.6 Baso % (Auto) 0.6 Absolute Neuts (auto) 6.8 Absolute Lymphs (auto) 3.58 Nucleated RBC % 0 Sodium 140 Potassium 4.0 Chloride 110 H Carbon Dioxide 22.0 Anion Gap 8 BUN 17 Creatinine 0.59 Estim Creat Clear Calc 118.21 Est GFR (MDRD) Af Amer 151 Est GFR (MDRD) Non-Af 125 BUN/Creatinine Ratio 28.6 H Glucose 100 Calcium 9.1 Total Bilirubin 0.30 AST 15 ALT 20 Alkaline Phosphatase 56 Total Protein 7.3 Albumin 4.3 Globulin 3.0 Albumin/Globulin Ratio 1.4 Lipase 134 Serum , Qual NEGATIVE Urine Color Urine Clarity Urine pH Ur Specific [place] Urine Protein Urine Glucose (UA) Urine Ketones Urine Occult Blood Urine Nitrite Urine Bilirubin Urine Urobilinogen Ur Leukocyte Esterase Urine RBC Urine WBC Ur Squamous Epith Cells Urine Bacteria Urine Mucus 01/10/20 13:25 WBC RBC Hgb Hct MCV MCH MCHC RDW Std Deviation RDW Coeff of Dimitrios Plt Count MPV Immature Gran % (Auto) Neut % (Auto) Lymph % (Auto) Kenton % (Auto) Eos % (Auto) Baso % (Auto) Absolute Neuts (auto) Absolute Lymphs (auto) Nucleated RBC % Sodium Potassium Chloride Carbon Dioxide Anion Gap BUN Creatinine Estim Creat Clear Calc Est GFR (MDRD) Af Amer Est GFR (MDRD) Non-Af BUN/Creatinine Ratio Glucose Calcium Total Bilirubin AST ALT Alkaline Phosphatase Total Protein Albumin Globulin Albumin/Globulin Ratio Lipase Serum , Qual Urine Color Straw Urine Clarity Clear Urine pH 7.0 Ur Specific [place] 1.005 Urine Protein Negative Urine Glucose (UA) Normal Urine Ketones Negative Urine Occult Blood Negative Urine Nitrite Negative Urine Bilirubin Negative Urine Urobilinogen Normal Ur Leukocyte Esterase Negative Urine RBC 0 SEEN Urine WBC 0 SEEN Ur Squamous Epith Cells 0-5 SEEN Urine Bacteria 0 SEEN Urine Mucus 0 SEEN - Medical Decision Making Patient was treated with Dilaudid, Zofran and a liter of IV fluid. CBC CMP lipase were obtained and all were unremarkable. Urinalysis unremarkable as well. was negative. CT scan abdomen and pelvis shows colitis. No abscess or perforation or obstruction. Radiologist states that due to the timing of the contrast unable to evaluate liver and recommended a Doppler ultrasound of the liver. We attempted to order this and I did speak with the mechanical facilities technician who stated to me that the missile technician that is able to perform this test is not here on the weekends and is not on-call to be called in to do this emergently. Repeat exam the patient is feeling well her abdomen is soft and nontender vital signs are stable she is able to tolerate by mouth and we do not feel she needs to be hospitalized to have this procedure done. Patient will be discharged with an order to have this ultrasound done as an outpatient. We will give her prednisone. She states this is helped her in the past with a Crohn's flare. She was given her first dose of prednisone in the emergency department. She will follow-up with her physician/internist as an outpatient. She was discharged <Mickey Geiger - Last Filed: 01/10/20 14:23> ED Disposition <Belinda Gonzales - Last Filed: 01/10/20 11:50> <Mickey Geiger - Last Filed: 01/10/20 14:23> - Plan for ED Patient: Disposition: Home or Assisted Living Diagnosis: Crohn's colitis, Crohn's disease Instructions: ED Crohn's Disease Prescriptions: Prednisone [Deltasone] 40 mg PO DAILY #10 tab Prescription Printed Oxycodone HCl/Acetaminophen [Percocet 5/325] 1 tab PO Q6H PRN PRN 3 Days #12 tab PRN Reason: Pain Prescription Printed Referrals: Azael Lr MD [Primary Care Provider] - Kelechi Evans MD [NON-STAFF] -
[2020-01-10 12:03] LABS: ALB/GLOB Ratio 1.4 RATIO (0.9-2.4); AST(SGOT) 15 U/L (15-37); Alanine Aminotransfer ALT/SGPT 20 U/L (13-56); Albumin, Serum 4.3 g/dL (3.2-5.0); Alkaline Phosphatase 56 U/L (45-117); Anion Gap 8 (5-15); BUN 17 mg/dL (7-18); BUN/Creat Ratio 28.6 RATIO (10-20); Calcium,Total 9.1 mg/dL (8.5-10.1); Chloride 110 mmol/L (98-107); Creatinine, Serum 0.59 mg/dL (0.55-1.02); EST Glomerular Filtration Rate 125 mL/min (>60); Est Glom Filt Rate - Afr Amer 151 mL/min (>60); Estimated Creatinine Clearance 118.21 ml/min; Glucose 100 mg/dL (74-106); Lipase 134 U/L (73-393); Protein, Total 7.3 g/dL (6.4-8.2); Sodium Level 140 mmol/L (136-145)
[2020-01-10] MEDS: Ondansetron 4 MG/2 ML Vial IV (12:03)
[2020-01-10] MEDS: 0.9% Normal Saline 1,000 ML 1000 ML IV (12:03)
[2020-01-10] MEDS: HYDROmorphone 1 MG/ML Syringe IV ×2 (12:03→13:49)
[2020-01-10 12:19] LABS: Internal QC Validated? YES +Cl - CLEAR BKGD; Pregnancy, Serum, hCG Quali. NEGATIVE Negative
[2020-01-10 13:30] LABS: Bacteria 0 SEEN /hpf (None Seen); Mucous, Urine 0 SEEN /hpf (<or=2+); Red Blood Cells-Urine 0 SEEN /hpf (0-5); White Blood Cells 0 SEEN /hpf (0-5)
[2020-01-10 13:35] VITALS: RESP 16
[2020-01-10 13:47] LABS: Color, Urine Straw (Yellow); Glucose, Dipstick Normal (Normal); Ketone-Dipstick Negative (Negative); Leukocyte Esterase-Dipstick Negative /ul (Negative); Nitrite-Dipstick Negative (Negative); Occult Blood-Urine Negative /ul (Negative); Protein-Dipstick Negative (Negative); Specific Gravity, Urine 1.005 (1.002-1.030); Urine Bilirubin Dipstick Negative (Negative); Urine Clarity Clear (Clear); Urine Urobilinogen Normal (Normal)
[2020-01-10 13:54] LABS: Squamous Epithelial Cells - UA 0-5 SEEN /hpf (5-10)
[2020-01-10] MEDS: predniSONE 20 MG Tablet 40 MG PO (14:44)
== END 2020-01-10 14:55 | disposition home or self-care (01) ==
LOC: ED 14:30
PROVIDERS: Emergency Provider Physician Assistant Medical; PCP Family Medicine
DX: K50.10 Crohn's disease of large intestine without complications (principal); F17.200 Nicotine dependence, unspecified, uncomplicated
CPT/HCPCS: 74177; 80053; 81001; 83690; 84703; 85025; 96361; 96374; 96375; 96376; 99283; J7030; Q9967; A4216; J2405

== ENCOUNTER 2020-04-30 10:52 | Emergency (ER) | payer BC, SELFPAY ==
[2020-04-30 10:54] VITALS: BP 134/91; PULSE 79; RESP 17; TEMP 36.4; O2SAT 98; BMI 25.5
--- NOTE | 2020-04-30 11:08 | ED.DCSUM_ITS ---
- ER Visit Summary Date of Service: 04/30/20 Chief Complaint: Abdominal pain, headache History of Present Illness: The patient is a 34 F who presents with abdominal pain as well as a headache. She has a history of Crohn's disease. After eating spaghetti last night she started having abdominal pain. She describes sharp cramping pain in her abdomen. It does not radiate. Nothing seems to make it better or worse. She has had multiple episodes of vomiting as well as diarrhea at home. No blood in the diarrhea or vomit. She does have some mild dysuria as well. She states after 1 of the vomiting episode she started having some pain in the back of her head that radiates forward. She does have a history of frequent headaches. Physical Examination: Vital signs reviewed. HEENT exam unremarkable. Heart is regular rate and rhythm without murmurs. Lungs are clear to auscultation. Abdomen is soft with diffuse tenderness. There is no guarding or rebound tenderness. Extremities reveal no edema. Skin exam normal. Neurologic exam normal. Test Results: White blood count 15.9, chloride is 110. AST 11. Urinalysis negative for infection. negative Emergency Department Course and Treatment: Patient was given IV fluids, Reglan and Bentyl. This did not help with her pain so I gave her 1 dose of IV fentanyl. She is feeling much better. Patient will be discharged home to use her home medications. She is going to call her specialist on Saturday. Treatment Plan: [] Disposition: Discharge Impression: Abdominal pain, nausea, vomiting and diarrhea This note was generated with [employer] dictation software. It may contain incorrect words, spelling, and punctuation that were not noted in review of the chart prior to signing ED Disposition - Plan for ED Patient: Disposition: Home or Assisted Living Instructions: ED Abdominal Pain Unkn Cause Fem Referrals: Azael Lr MD [Primary Care Provider] -
[2020-04-30 11:26] LABS: Mucous, Urine 0 SEEN /hpf (<or=2+); Red Blood Cells-Urine 0 SEEN /hpf (0-5)
[2020-04-30 11:29] LABS: Absolute Lymphocyte Count 2.91 X10^3/uL (0.83-4.51); Absolute Neutrophil Count 11.6 X10^3/uL (2.0-7.7); Basophil# 0.09 X10^3/uL; Basophil% 0.6 % (0-1); Eosinophil# 0.27 X10^3/uL; Eosinophils% 1.7 % (0-5); Hematocrit 43.1 % (37-47); Hemoglobin 14.1 g/dL (12.0-15.0); Lymphocyte # 2.91 X10^3/ul (4.0); Lymphocyte % 18.4 % (19-41); Mean Corp Hgb Conc 32.7 g/dL (32-36); Mean Corpuscular Hgb 29.1 pg (27.0-32.0); Mean Corpuscular Volume 88.9 fL (81-99); Mean Platelet Vol. 9.7 fl (6.2-12.0); Monocyte# 0.92 X10^3/uL; Monocyte% 5.8 % (0-10); NRBC Flagged by Analyzer 0 % (0-5); Neutrophil # 11.59 X10^3/uL (2.7-7.7); Neutrophil % 73.1 % (47-70); Platelet Count 413 K/mm3 (150-450); RBC Distribution Width CV 13.2 % (11.6-14.6); RBC Distribution Width SD 42.9 fl (35.1-43.9); Red Blood Count 4.85 M/mm3 (4.2-5.4); White Blood Count 15.9 K/mm3 (4.4-11.0)
[2020-04-30 11:30] LABS: Color, Urine Yellow (Yellow); Glucose, Dipstick Normal (Normal); Ketone-Dipstick Negative (Negative); Leukocyte Esterase-Dipstick 100 /ul (Negative); Nitrite-Dipstick Negative (Negative); Occult Blood-Urine Negative /ul (Negative); Protein-Dipstick Negative (Negative); Urine Bilirubin Dipstick Negative (Negative); Urine Clarity Clear (Clear); Urine Urobilinogen Normal (Normal)
[2020-04-30 11:32] LABS: Internal QC Validated? YES +Cl - CLEAR BKGD; Pregnancy, Urine Negative Negative
[2020-04-30 11:38] LABS: Bacteria RARE /hpf (None Seen); Squamous Epithelial Cells - UA 0-5 SEEN /hpf (5-10); White Blood Cells 0-5 SEEN /hpf (0-5)
[2020-04-30] MEDS: Dicyclomine 20 MG/2 ML Vial IM (11:48)
[2020-04-30] MEDS: Metoclopramide 10 MG/2 ML Vial IV (11:48)
[2020-04-30 11:49] LABS: AST(SGOT) 11 U/L (15-37); Alanine Aminotransfer ALT/SGPT 17 U/L (13-56); Albumin, Serum 4.2 g/dL (3.2-5.0); Alkaline Phosphatase 58 U/L (45-117); Anion Gap 7 (5-15); BUN 12 mg/dL (7-18); BUN/Creat Ratio 18.3 RATIO (10-20); Bilirubin, Direct < 0.05 mg/dL (0.00-0.30); Chloride 110 mmol/L (98-107); Creatinine, Serum 0.66 mg/dL (0.55-1.02); EST Glomerular Filtration Rate 111 mL/min (>60); Est Glom Filt Rate - Afr Amer 134 mL/min (>60); Estimated Creatinine Clearance 105.67 ml/min; Globulin 3.1 g/dL (2.2-4.2); Glucose 107 mg/dL (74-106); Lipase 166 U/L (73-393); Potassium 3.9 mmol/L (3.5-5.1); Protein, Total 7.3 g/dL (6.4-8.2); Sodium Level 140 mmol/L (136-145)
[2020-04-30] MEDS: 0.9% Normal Saline 1,000 ML 1000 ML IV (11:50)
[2020-04-30] MEDS: fentaNYL 100 MCG/2 ML Ampul 50 MCG IV (12:37)
[2020-04-30 13:11] VITALS: BP 112/78; PULSE 62
== END 2020-04-30 13:11 | disposition home or self-care (01) ==
PROVIDERS: Emergency Provider Emergency Medicine; PCP Family Medicine
DX: R10.84 Generalized abdominal pain (principal); R11.2 Nausea with vomiting, unspecified; R19.7 Diarrhea, unspecified; Z72.0 Tobacco use
CPT/HCPCS: 80048; 80076; 81001; 81025; 83690; 85025; 96361; 96372; 96374; 96375; 99284; J7030; A4216

== ENCOUNTER 2020-06-21 13:00 | Emergency (ER) | payer BC, SELFPAY ==
[2020-06-21 13:02] VITALS: BP 103/62; PULSE 88; RESP 16; TEMP 36.3; O2SAT 99; BMI 24.0
[2020-06-21 13:18] LABS: Absolute Lymphocyte Count 4.26 X10^3/uL (0.83-4.51); Absolute Neutrophil Count 6.3 X10^3/uL (2.0-7.7); Basophil# 0.07 X10^3/uL; Basophil% 0.6 % (0-1); Eosinophil# 0.37 X10^3/uL; Eosinophils% 3.2 % (0-5); Hematocrit 39.8 % (37-47); Hemoglobin 13.1 g/dL (12.0-15.0); Lymphocyte # 4.26 X10^3/ul (4.0); Lymphocyte % 36.6 % (19-41); Mean Corp Hgb Conc 32.9 g/dL (32-36); Mean Corpuscular Hgb 29.3 pg (27.0-32.0); Mean Platelet Vol. 9.4 fl (6.2-12.0); Monocyte# 0.59 X10^3/uL; Monocyte% 5.1 % (0-10); NRBC Flagged by Analyzer 0 % (0-5); Neutrophil # 6.33 X10^3/uL (2.7-7.7); Neutrophil % 54.2 % (47-70); Platelet Count 390 K/mm3 (150-450); RBC Distribution Width CV 13.3 % (11.6-14.6); RBC Distribution Width SD 43.6 fl (35.1-43.9); Red Blood Count 4.47 M/mm3 (4.2-5.4); White Blood Count 11.7 K/mm3 (4.4-11.0)
[2020-06-21 13:27] LABS: Internal QC Validated? YES +Cl - CLEAR BKGD; Pregnancy, Serum, hCG Quali. NEGATIVE Negative
[2020-06-21 13:31] LABS: Anion Gap 3 (5-15); BUN 8 mg/dL (7-18); BUN/Creat Ratio 12.8 RATIO (10-20); Calcium,Total 9.4 mg/dL (8.5-10.1); Chloride 109 mmol/L (98-107); Creatinine, Serum 0.62 mg/dL (0.55-1.02); EST Glomerular Filtration Rate 117 mL/min (>60); Est Glom Filt Rate - Afr Amer 142 mL/min (>60); Estimated Creatinine Clearance 112.49 ml/min; Glucose 89 mg/dL (74-106); Potassium 3.9 mmol/L (3.5-5.1); Sodium Level 140 mmol/L (136-145)
--- NOTE | 2020-06-21 14:36 | ED.DCSUM_ITS ---
- ER Visit Summary Date of Service: 06/21/20 Chief Complaint: Abdominal pain History of Present Illness: The patient is a 34 F who present with abdominal pain that began yesterday. Patient states the pain became worse today. Patient states the pain is similar to prior episodes of her Crohn's disease and [facility] erative colitis. Patient describes the pain as aching. Patient states the pain is diffuse across her abdomen. Patient states she took her Bentyl and Zofran at home with some relief. Patient states her councillor [employer] told her to come to the emergency department. Patient states he ordered some stool studies. Physical Examination: Vital signs are stable. Patient is afebrile. Patient is in no acute distress. Oral mucosa is pink and moist. Neck is supple. There is no JVD. Heart is regular rate and rhythm. Lungs are clear and equal bilaterally. Abdomen is soft. Bowel sounds are normal. There is diffuse tenderness. There is no rebound or guarding. Cranial nerves II-XII are intact. There are no focal motor or sensory deficits noted. Extremities are intact. There is no calf tenderness or edema. Test Results: CBC shows a slight leukocytosis of 11.7. Comprehensive metabolic profile was essentially within normal limits. Urinalysis was normal. Serum hCG was negative. Emergency Department Course and Treatment: Patient was given IV fluids. Patient was given a dose of Dilaudid and Zofran initially. Patient was feeling better on reevaluation. Patient was given a repeat dose of Dilaudid. Patient was instructed to follow-up with her primary care physician and councillor [employer] in 5 to 7 days. Patient was instructed to continue her medications as previously prescribed. Patient understood and was agreeable with the plan. All questions were answered. Disposition: Discharge home Impression: Exacerbation of Crohn's disease This note was generated with [employer] software. It may contain incorrect words, spelling, and punctuation that were not noted in review of the chart prior to signing ED Disposition - Plan for ED Patient: Disposition: Home or Assisted Living Diagnosis: Exacerbation of Crohn's disease Instructions: ED Crohn's Disease Referrals: Azael Lr MD [Primary Care Provider] - 3-5 Days
[2020-06-21] MEDS: Ondansetron 4 MG/2 ML Vial IV (14:51)
[2020-06-21] MEDS: HYDROmorphone 1 MG/ML Syringe 0.5 MG IV (14:51)
[2020-06-21] MEDS: 0.9% Normal Saline 1,000 ML 1000 ML IV (14:53)
[2020-06-21 15:13] LABS: Bacteria 0 SEEN /hpf (None Seen); Mucous, Urine 0 SEEN /hpf (<or=2+); Red Blood Cells-Urine 0 SEEN /hpf (0-5); Squamous Epithelial Cells - UA 0 SEEN /hpf (5-10); White Blood Cells 0 SEEN /hpf (0-5)
[2020-06-21 15:19] LABS: Color, Urine Yellow (Yellow); Glucose, Dipstick Normal (Normal); Ketone-Dipstick Negative (Negative); Leukocyte Esterase-Dipstick Negative /ul (Negative); Nitrite-Dipstick Negative (Negative); Occult Blood-Urine Negative /ul (Negative); Protein-Dipstick Negative (Negative); Urine Bilirubin Dipstick Negative (Negative); Urine Clarity Clear (Clear); Urine Urobilinogen Normal (Normal); Urine pH 6.5 (5.0 - 8.0)
[2020-06-21 15:34] LABS: AST(SGOT) 9 U/L (15-37); Alanine Aminotransfer ALT/SGPT 18 U/L (13-56); Albumin, Serum 4.2 g/dL (3.2-5.0); Alkaline Phosphatase 61 U/L (45-117); Globulin 3.2 g/dL (2.2-4.2); Protein, Total 7.4 g/dL (6.4-8.2)
[2020-06-21] MEDS: HYDROmorphone 0.5 MG/0.5 ML SYRINGE IV (16:21)
[2020-06-21 16:26] VITALS: BP 128/50; PULSE 77; O2SAT 100
== END 2020-06-21 16:29 | disposition home or self-care (01) ==
PROVIDERS: Emergency Provider Emergency Medicine; PCP Family Medicine
DX: K50.90 Crohn's disease, unspecified, without complications (principal); Z79.899 Other long term (current) drug therapy
CPT/HCPCS: 80048; 80076; 81001; 84703; 85025; 96361; 96374; 96375; 96376; 99284; J7030; A4216; J2405

== ENCOUNTER 2020-08-17 16:00 | Emergency (ER) | payer BC, SELFPAY ==
[2020-08-17 16:02] VITALS: BP 125/45; PULSE 90; RESP 20; TEMP 36.5; O2SAT 99; BMI 25.7
[2020-08-17 16:04] VITALS: BP 110/77; PULSE 64; RESP 18; O2SAT 100
--- NOTE | 2020-08-17 16:31 | US_ITS ---
STUDY: ABDOMINAL ULTRASOUND - RIGHT UPPER QUADRANT REASON FOR VISIT: Female, 34 years old right upper quadrant pain. Nausea, vomiting and diarrhea. History of Crohn''s disease. TECHNIQUE: Ultrasound evaluation of the right upper quadrant was performed with real-time and static schroeder-scale imaging. TECHNICAL QUALITY: Adequate. COMPARISON: CT of the abdomen and pelvis, 01/10/2020. FINDINGS: Liver: The liver measures 18.8 cm. There is normal echogenicity of the liver. The bile ducts are within normal limits. There is hepatic color flow. The direction of portal flow is hepatopetal. There is no demonstrated mass lesion. Gallbladder: Normal distended gallbladder. The gallbladder wall measures 1 mm. There is a positive sonographic Márquez''s sign. There is no pericholecystic fluid. There is biliary sludge dependent within the gallbladder. Common Bile Duct (C.B.D.): The common bile duct measures 3.4 mm. Pancreas: Normal size of the head, body and tail of the pancreas. There is normal echogenicity of the pancreas. There is no demonstrated pancreatic mass or cyst. Right Kidney: Normal size of the right kidney. The right kidney measures 10.7 cm. Normal renal cortex. The right cortex measures 1.0 cm. There is no demonstrated renal mass or cyst. There is no right hydronephrosis. US/Gallbladder IMPRESSION: Gallbladder sludge versus small stones with positive Márquez''s sign. There is no evidence of wall thickening. Acute cholecystitis should be considered. Electronically Signed: Kristian Dennis DO at 18:08 EST Tel [phone], Service support ,
--- NOTE | 2020-08-17 16:33 | ED.DCSUM_ITS ---
- ER Visit Summary Date of Service: 08/17/20 Chief Complaint: Abdominal pain, nausea, vomiting, and diarrhea History of Present Illness: The patient is a 34 F who presents with abdominal pain, nausea, vomiting, and diarrhea that has been getting worse over the past 4 days. Patient describes her pain as sharp, aching, and cramping. Patient states the pain is over the right upper quadrant and radiates into her back. Patient states the pain is been constant. Patient states pain is worse with certain movements. Patient states she is vomiting stomach contents and possibly bile. Patient denies any hematemesis or coffee-ground emesis. Patient states her diarrhea is watery. Patient denies any melena or hematochezia. Patient states her last menstrual period was 07/27/2020. Patient does admit to some dysuria and urinary frequency. Patient admits to subjective chills but denies any fevers. Physical Examination: Vital signs are stable. Patient is afebrile. Patient is in no acute distress. Oral mucosa is pink and moist. Neck is supple. Trachea is midline. There is no JVD noted. Heart was regular rate and rhythm. Lungs are clear and equal bilaterally. Abdomen is soft. Bowel sounds are normal. There is right upper quadrant tenderness. There is no rebound or guarding noted. Skin is warm dry. Cranial nerves II through XII are intact. There are no focal motor or sensory deficits noted. Extremities are intact. There is no calf tenderness or edema. Test Results: CBC and comprehensive metabolic profile were within normal limits. Urinalysis was normal. hCG was negative. Right upper quadrant ultrasound was obtained. There is sludge versus small stones. There is a positive sonographic Márquez sign. There is no pericholecystic fluid. There is no gallbladder wall thickening. There is no bile duct dilatation. This was interpreted by the radiologist and reviewed by myself. Emergency Department Course and Treatment: Patient was given IV fluids, Dilaudid, and Phenergan here. Patient is feeling better on reevaluation. Patient was instructed to eat a bland diet. Patient was instructed to avoid fried foods, greasy foods, and fatty foods. Patient was instructed to follow-up with her primary care physician in 3 to 5 days. Patient was also given referral for general surgery for further evaluation of her gallbladder. Patient understood and was agreeable with the plan. All questions were answered. Disposition: Discharge home Impression: Right upper quadrant abdominal pain This note was generated with [employer] dictation software. It may contain incorrect words, spelling, and punctuation that were not noted in review of the chart prior to signing ED Disposition - Plan for ED Patient: Disposition: Home or Assisted Living Diagnosis: Right upper quadrant abdominal pain Instructions: ED Abdominal Pain Gallstone Poss Referrals: Azael Lr MD [Primary Care Provider] - 3-5 Days Fahad Gerber MD [STAFF PHYSICIAN] - 3-5 Days
[2020-08-17 17:05] LABS: Absolute Lymphocyte Count 4.03 X10^3/uL (0.83-4.51); Absolute Neutrophil Count 5.9 X10^3/uL (2.0-7.7); Basophil# 0.08 X10^3/uL; Basophil% 0.7 % (0-1); Eosinophil# 0.24 X10^3/uL; Eosinophils% 2.2 % (0-5); Hematocrit 42.4 % (37-47); Hemoglobin 13.9 g/dL (12.0-15.0); Lymphocyte # 4.03 X10^3/ul (4.0); Lymphocyte % 36.7 % (19-41); Mean Corp Hgb Conc 32.8 g/dL (32-36); Mean Corpuscular Hgb 28.5 pg (27.0-32.0); Mean Corpuscular Volume 87.1 fL (81-99); Mean Platelet Vol. 9.8 fl (6.2-12.0); Monocyte# 0.73 X10^3/uL; Monocyte% 6.6 % (0-10); NRBC Flagged by Analyzer 0 % (0-5); Neutrophil # 5.88 X10^3/uL (2.7-7.7); Neutrophil % 53.5 % (47-70); Platelet Count 396 K/mm3 (150-450); RBC Distribution Width CV 13.2 % (11.6-14.6); RBC Distribution Width SD 42.3 fl (35.1-43.9); Red Blood Count 4.87 M/mm3 (4.2-5.4)
[2020-08-17] MEDS: proMETHazine 25 MG/ML Syringe 12.5 MG IM (17:06)
[2020-08-17] MEDS: HYDROmorphone 1 MG/ML Syringe IV (17:08)
[2020-08-17] MEDS: 0.9% Normal Saline 1,000 ML 1000 ML IV (17:08)
[2020-08-17 17:15] LABS: Internal QC Validated? YES +Cl - CLEAR BKGD; Pregnancy, Serum, hCG Quali. NEGATIVE Negative
[2020-08-17 17:20] LABS: ALB/GLOB Ratio 1.3 RATIO (0.9-2.4); AST(SGOT) 5 U/L (15-37); Alanine Aminotransfer ALT/SGPT 16 U/L (13-56); Albumin, Serum 4.4 g/dL (3.2-5.0); Alkaline Phosphatase 63 U/L (45-117); Anion Gap 5 (5-15); BUN 18 mg/dL (7-18); BUN/Creat Ratio 28.6 RATIO (10-20); Calcium,Total 9.3 mg/dL (8.5-10.1); Chloride 109 mmol/L (98-107); Creatinine, Serum 0.63 mg/dL (0.55-1.02); EST Glomerular Filtration Rate 116 mL/min (>60); Est Glom Filt Rate - Afr Amer 140 mL/min (>60); Globulin 3.3 g/dL (2.2-4.2); Glucose 97 mg/dL (74-106); Lipase 163 U/L (73-393); Potassium 3.6 mmol/L (3.5-5.1); Protein, Total 7.7 g/dL (6.4-8.2); Sodium Level 139 mmol/L (136-145)
[2020-08-17 18:16] LABS: Bacteria 0 SEEN /hpf (None Seen); Mucous, Urine 0 SEEN /hpf (<or=2+); Red Blood Cells-Urine 0 SEEN /hpf (0-5); White Blood Cells 0 SEEN /hpf (0-5)
[2020-08-17 18:20] LABS: Color, Urine Yellow (Yellow); Glucose, Dipstick Normal (Normal); Ketone-Dipstick Negative (Negative); Leukocyte Esterase-Dipstick 25 /ul (Negative); Nitrite-Dipstick Negative (Negative); Occult Blood-Urine 10 /ul (Negative); Protein-Dipstick 15 mg/dl (Negative); Specific Gravity, Urine 1.015 (1.002-1.030); Urine Bilirubin Dipstick Negative (Negative); Urine Clarity Clear (Clear); Urine Urobilinogen Normal (Normal)
[2020-08-17 18:30] LABS: Squamous Epithelial Cells - UA 0-5 SEEN /hpf (5-10)
[2020-08-17] MEDS: HYDROmorphone 0.5 MG/0.5 ML SYRINGE IV (19:06)
== END 2020-08-17 19:29 | disposition home or self-care (01) ==
PROVIDERS: Emergency Provider Emergency Medicine; PCP Family Medicine
DX: R10.11 Right upper quadrant pain (principal); Z87.891 Personal history of nicotine dependence
CPT/HCPCS: 76705; 80053; 81001; 83690; 84703; 85025; 87426; 96361; 96372; 96374; 96376; 99283; J7030; A4216

== ENCOUNTER → 2020-08-22 08:19 | Outpatient (CLI) | payer BC, SELFPAY ==
[2020-08-22 07:50] VITALS: BMI 26.2
[2020-08-22 09:04] LABS: Erythrocyte Sedimentation Rate 7 mm/hr (0-20)
== END ==
PROVIDERS: PCP Family Medicine; Referring Provider Surgery; Visit Provider Surgery
DX: R10.9 Unspecified abdominal pain (principal)
CPT/HCPCS: 36415; 85652

== ENCOUNTER 2020-10-24 13:16 | Emergency (ER) | payer BC, SELFPAY ==
[2020-08-22 07:50] VITALS: BMI 26.2
[2020-10-24 13:19] VITALS: BP 126/96; PULSE 80; RESP 14; TEMP 36.8; O2SAT 97; BMI 25.3
[2020-10-24] MEDS: 0.9% Normal Saline 1,000 ML 1000 ML IV (14:27)
[2020-10-24] MEDS: Ondansetron 4 MG/2 ML Vial IV (14:28)
[2020-10-24 14:36] LABS: Bacteria 0 SEEN /hpf (None Seen); Mucous, Urine 0 SEEN /hpf (<or=2+); White Blood Cells 0 SEEN /hpf (0-5)
[2020-10-24 14:45] LABS: Absolute Neutrophil Count 4.6 X10^3/uL (2.0-7.7); Basophil# 0.07 X10^3/uL; Basophil% 0.7 % (0-1); Eosinophils% 2.1 % (0-5); Hemoglobin 13.3 g/dL (12.0-15.0); Lymphocyte % 40.6 % (19-41); Mean Corp Hgb Conc 33.3 g/dL (32-36); Mean Corpuscular Hgb 28.9 pg (27.0-32.0); Mean Corpuscular Volume 86.8 fL (81-99); Mean Platelet Vol. 10.1 fl (6.2-12.0); Monocyte# 0.71 X10^3/uL; Monocyte% 7.6 % (0-10); NRBC Flagged by Analyzer 0 % (0-5); Neutrophil # 4.55 X10^3/uL (2.7-7.7); Neutrophil % 48.7 % (47-70); Platelet Count 409 K/mm3 (150-450); RBC Distribution Width CV 13.6 % (11.6-14.6); RBC Distribution Width SD 42.8 fl (35.1-43.9); Red Blood Count 4.61 M/mm3 (4.2-5.4); White Blood Count 9.4 K/mm3 (4.4-11.0)
[2020-10-24 14:51] LABS: Color, Urine YELLOW (Yellow); Glucose, Dipstick Normal (Normal); Ketone-Dipstick Negative (Negative); Leukocyte Esterase-Dipstick Negative /ul (Negative); Nitrite-Dipstick Negative (Negative); Occult Blood-Urine 250 /ul (Negative); Protein-Dipstick Negative (Negative); Specific Gravity, Urine 1.005 (1.002-1.030); Urine Bilirubin Dipstick Negative (Negative); Urine Clarity Clear (Clear); Urine Urobilinogen Normal (Normal)
[2020-10-24 14:57] LABS: Internal QC Validated? YES +Cl - CLEAR BKGD; Pregnancy, Serum, hCG Quali. NEGATIVE Negative
[2020-10-24 14:58] LABS: ALB/GLOB Ratio 1.2 RATIO (0.9-2.4); AST(SGOT) 12 U/L (15-37); Alanine Aminotransfer ALT/SGPT 16 U/L (13-56); Alkaline Phosphatase 60 U/L (45-117); Anion Gap 6 (5-15); BUN 13 mg/dL (7-18); BUN/Creat Ratio 21.5 RATIO (10-20); Calcium,Total 9.5 mg/dL (8.5-10.1); Chloride 110 mmol/L (98-107); EST Glomerular Filtration Rate 121 mL/min (>60); Est Glom Filt Rate - Afr Amer 147 mL/min (>60); Estimated Creatinine Clearance 116.24 ml/min; Globulin 3.2 g/dL (2.2-4.2); Glucose 96 mg/dL (74-106); Lipase 113 U/L (73-393); Potassium 3.7 mmol/L (3.5-5.1); Protein, Total 7.2 g/dL (6.4-8.2); Sodium Level 139 mmol/L (136-145)
[2020-10-24 15:03] LABS: Squamous Epithelial Cells - UA 0-5 SEEN /hpf (5-10)
[2020-10-24 15:04] LABS: Red Blood Cells-Urine 0-5 SEEN /hpf (0-5)
[2020-10-24] MEDS: HYDROmorphone 0.5 MG/0.5 ML SYRINGE IV ×2 (15:08→15:48)
--- NOTE | 2020-10-24 15:29 | ED.DCSUM_ITS ---
- ER Visit Summary Date of Service: 10/24/20 Chief Complaint: Abdominal pain History of Present Illness: The patient is a 34 F who presents with abdominal pain that began today. Patient states the pain feels similar to prior episodes of her Crohn's disease. Patient states her pain is diffuse. Patient admits to nausea and vomiting. Patient denies any hematemesis or coffee-ground emesis. Patient states her abdominal pain improved slightly with Bentyl and Tylenol. Patient admits to diarrhea. Patient states it is watery. Patient denies any melena or hematochezia. Patient admits to some mild dysuria but denies any hematuria. Patient is currently on her menstrual cycle. Physical Examination: Vital signs are stable. Patient is afebrile. Patient is in no acute distress. Oral mucosa is pink and moist. Neck is supple. Trachea is midline. There is no JVD noted. Heart was regular rate and rhythm. Lungs are clear and equal bilaterally. Abdomen is soft. Bowel sounds are normal. There is mild diffuse tenderness. There is no rebound or guarding noted. Skin is warm dry. Cranial nerves II through XII are intact. There are no focal motor or sensory deficits noted. Extremities are intact. There is no calf tenderness or edema. Test Results: CBC and comprehensive metabolic profile were obtained and were within normal limits. Lipase was normal. Urinalysis does not show any evidence of urinary tract infection. Serum hCG was negative. Emergency Department Course and Treatment: Patient was given IV fluids, Zofran, and Dilaudid. Patient is feeling better on reevaluation. Patient was instru cted to start with a liquid diet and advance as tolerated. Patient was instructed to follow-up with her primary care physician in 5 to 7 days. Patient understood and was agreeable with the plan. All questions were answered. Disposition: Discharge home Impression: 1. Abdominal pain 2. Crohn's disease This note was generated with [employer] dictation software. It may contain incorrect words, spelling, and punctuation that were not noted in review of the chart prior to signing ED Disposition - Plan for ED Patient: Disposition: Home or Assisted Living Diagnosis: Abdominal pain, Crohn's disease Instructions: ED Crohn's Disease Referrals: Azael Lr MD [Primary Care Provider] - 3-5 Days
[2020-10-24 15:49] VITALS: BP 125/67; PULSE 64; RESP 18; O2SAT 97
[2020-10-24 16:16] VITALS: BP 122/73; PULSE 70; RESP 17; O2SAT 99
--- NOTE | 2020-10-24 16:17 | ED.RN ---
IV DC'ED, CATHETER INTACT, SMALL GAUZE DRESSING PLACED. DISCHARGE INSTRUCTIONS GIVEN TO AND REVIEWED WITH PATIENT, PATIENT DENIES QUESTIONS OR CONCERNS AND VOICES UNDERSTANDING OF DISCHARGE INSTRUCTIONS. PT AMBULATES OUT OF ROOM WITHOUT DIFFICULTY.
== END 2020-10-24 16:17 | disposition home or self-care (01) ==
PROVIDERS: Emergency Provider Emergency Medicine; PCP Family Medicine
DX: K50.90 Crohn's disease, unspecified, without complications (principal)
CPT/HCPCS: 80053; 81001; 83690; 84703; 85025; 96361; 96374; 96375; 99284; J7030; A4216; J2405

== ENCOUNTER 2021-01-01 09:55 | Emergency (ER) | payer BC, SELFPAY ==
[2021-01-01 09:55] VITALS: BP 136/78; PULSE 91; RESP 16; TEMP 36.4; O2SAT 98; BMI 24.9
--- NOTE | 2021-01-01 10:25 | EDS_ITS ---
HPI HPI - GI History of Present Illness Chief Complaint: Abd Pain Informant: patient Abdominal Pain/Flank Pain Onset: Days (3) Context: Gradual Onset Timing: Continuous Quality: Sharp Location: Epigastric and RUQ Nausea/Vomiting/Emesis GI Symptom: Positive for Nausea and Vomiting Onset: Today Quality: Negative for Coffee ground and Hematemesis Diarrhea/Melena/Hematochezia GI Symptom: Positive for Diarrhea; Negative for Melena and Hematochezia Associated Symptoms Associated Symptoms: Positive for Dysuria; Negative for Hematuria Narrative Narrative: Patient presents with abdominal pain that has gradually been getting worse over the past 3 days. Patient states that today she started having nausea and vomiting. Patient states she was taking her Zofran and Bentyl at home with no improvement. Patient states she does have a history of Crohn's disease. Patient states this does feel similar to that. Patient does admit to some dysuria but denies any hematuria. Patient also admits to some diarrhea but denies any melena or hematochezia. Patient states her pain is over the upper abdomen and worse on the right upper quadrant and epigastric area. Patient states it is worse with vomiting. Prior similar symptoms: Yes PFSH PFSH Medical History Abdominal pain Anxiety Colitis Crohns disease Depression Nausea Sleep apnea Home Medications multivitamin,[id number]-[id number] 1 tab PO DAILY 09/29/19 [History Last Taken Unknown] dicyclomine 20 mg PO TID PRN 10/24/20 [History Last Taken Unknown] Lactobacillus acidophilus [Acidophilus] 1,000 mmu cells PO DAILY 01/01/21 [History Last Taken Unknown] ondansetron HCl [Zofran] 4 mg PO Q6H 01/01/21 [History Last Taken Unknown] Allergy/AdvReac Type Severity Reaction Status Date / Time morphine AdvReac Mild increased Verified 01/01/21 09:55 HR NECTARINES AdvReac Angioedema Uncoded 01/01/21 09:55 Family History (Updated 08/22/20 @ 07:50 by Rosalba Rodrigues) Mother Heart disease Pacemaker Grandfather Diabetes Grandmother Diabetes Surgical History History of colonoscopy (~2016) History of colonoscopy (~2017) History of esophagogastroduodenoscopy (EGD) (~2018) History of wisdom tooth extraction Social History Smoking Status: Former smoker alcohol intake: never substance use type: does not use caffeine: Yes what type of physical activity do you participate in: walking seatbelt use: always do you feel safe at home: Yes additional social history: [employer] ROS ROS ED Constitutional Constitutional ED: Denies chills or fever(s) ENT ENT ED: Denies rhinorrhea or sore throat Cardiovascular Cardiovascular: Reports palpitations; Denies chest pain Respiratory/Chest Respiratory/Chest: Denies cough or dyspnea Gastrointestinal Gastrointestinal: Reports abdominal pain, diarrhea, nausea and vomiting; Denies melena Genitourinary Genitourinary ED: Reports dysuria; Denies hematuria or urinary frequency Musculoskeletal Musculoskeletal: Denies back pain or neck pain Integumentary Denies abscess or rash Neurologic Neurologic: Reports headache(s); Denies weakness Allergic/Immunologic Allergic/Immunologic ED: Denies mouth swelling or urticaria EXAM Physical Exam Const Vital Signs: 01/01/21 09:55 Temperature 97.5 F L Temperature Source Temporal Pulse Rate 91 Respiratory Rate 16 Blood Pressure 136/78 H Blood Pressure Mean 97 Pulse Ox 98 Oxygen Delivery Method Room Air Positive well nourished and well developed General Appearance ED: well developed HEENT normocephalic and atraumatic Neck supple and no JVD Resp normal respiratory effort and clear to auscultation bilaterally Cardio regular rate and regular rhythm GI non-distended Auscultation: normoactive bowel sounds Palpation: soft and tender epigastric, LLQ, LUQ and RUQ; Negative for guarding or rebound tenderness present Extremity General Extremety ED: Negative for edema or tenderness General Extremity: Negative for edema Neuro CN's II-XII intact bilaterally, moves all extremities and no sensory deficits noted Sensorium / Orientation: alert, oriented to person, oriented to place and oriented to time MDM MDM MDM Narrative Medical decision making narrative: Patient was given IV fluids, Dilaudid, and Zofran. Patient had some improvement of her pain with this. Patient states her nausea has not improved however. Patient was given a dose of Phenergan and a repeat dose of Dilaudid. CBC shows a slight leukocytosis of 12.6. Comprehensive metabolic profile was essentially within normal limits. Serum hCG was negative. Urinalysis does not show any evidence of urinary tract infection. Patient was advised of her findings. Patient was advised that this is most likely a flareup of her Crohn's disease. Patient was instructed to follow-up with her primary care physician in 3 to 5 days. Patient understood and was agreeable with the plan. All questions were answered. Lab Data Attestation: I reviewed the patient's lab results. Labs: Laboratory Results - last 24 hr 01/01/21 01/01/21 01/01/21 10:20 10:20 10:20 WBC 12.6 H RBC 4.88 Hgb 14.0 Hct 42.3 MCV 86.7 MCH 28.7 MCHC 33.1 RDW Std Deviation 41.7 RDW Coeff of Dimitrios 13.2 Plt Count 452 H MPV 9.3 Immature Gran % (Auto) 0.500 Neut % (Auto) 61.4 Lymph % (Auto) 30.2 [place] % (Auto) 6.3 Eos % (Auto) 0.8 Baso % (Auto) 0.8 Absolute Neuts (auto) 7.8 H Absolute Lymphs (auto) 3.82 Nucleated RBC % 0 Sodium 138 Potassium 3.7 Chloride 108 H Carbon Dioxide 21.0 Anion Gap 9 BUN 15 Creatinine 0.58 Estim Creat Clear Calc 119.13 Est GFR (MDRD) Af Amer 153 Est GFR (MDRD) Non-Af 126 BUN/Creatinine Ratio 25.7 H Glucose 89 Calcium 8.7 Total Bilirubin 0.30 AST 10 L ALT 17 Alkaline Phosphatase 65 Total Protein 7.5 Albumin 4.3 Globulin 3.2 Albumin/Globulin Ratio 1.3 Lipase 65 L Serum , Qual NEGATIVE Urine Color Urine Clarity Urine pH Ur Specific [place] Urine Protein Urine Glucose (UA) Urine Ketones Urine Occult Blood Urine Nitrite Urine Bilirubin Urine Urobilinogen Ur Leukocyte Esterase Urine RBC Urine WBC Ur Squamous Epith Cells Urine Bacteria Urine Mucus 01/01/21 10:54 WBC RBC Hgb Hct MCV MCH MCHC RDW Std Deviation RDW Coeff of Dimitrios Plt Count MPV Immature Gran % (Auto) Neut % (Auto) Lymph % (Auto) [place] % (Auto) Eos % (Auto) Baso % (Auto) Absolute Neuts (auto) Absolute Lymphs (auto) Nucleated RBC % Sodium Potassium Chloride Carbon Dioxide Anion Gap BUN Creatinine Estim Creat Clear Calc Est GFR (MDRD) Af Amer Est GFR (MDRD) Non-Af BUN/Creatinine Ratio Glucose Calcium Total Bilirubin AST ALT Alkaline Phosphatase Total Protein Albumin Globulin Albumin/Globulin Ratio Lipase Serum , Qual Urine Color Yellow Urine Clarity Sl. Cloudy Urine pH 7.0 Ur Specific [place] 1.010 Urine Protein 15 H Urine Glucose (UA) Normal Urine Ketones 5 H Urine Occult Blood 50 H Urine Nitrite Negative Urine Bilirubin Negative Urine Urobilinogen Normal Ur Leukocyte Esterase Negative Urine RBC 0 SEEN Urine WBC 0 SEEN Ur Squamous Epith Cells 0-5 SEEN Urine Bacteria 0 SEEN Urine Mucus 0 SEEN Discharge Plan Triage Chief Complaint: Abd Pain ED Provider: Haris Smith Dx/Rx/DC Orders Clinical Impression: Abdominal pain, Crohn's disease Instructions: ED Crohn's Disease Prescriptions: No Action Complete Multivitamin Tablet 1 tab PO DAILY RF: 0 dicyclomine 20 MG tablet 20 mg PO TID PRN (Reason: Cramp) RF: 0 ondansetron HCl [Zofran] 4 mg Tablet 4 mg PO Q6H RF: 0 Acidophilus Tablet 1,000 mmu cells PO DAILY RF: 0 Primary Care Provider: Azael Lr Referrals: Azael Lr MD [Primary Care Provider] - 3-5 Days Disposition Disposition: Home, self care
[2021-01-01] MEDS: 0.9% Normal Saline 1,000 ML 1000 ML IV (10:31)
[2021-01-01] MEDS: Ondansetron 4 MG/2 ML Vial IV (10:32)
[2021-01-01] MEDS: HYDROmorphone 1 MG/ML Syringe IV (10:32)
[2021-01-01 10:40] LABS: Absolute Lymphocyte Count 3.82 X10^3/uL (0.83-4.51); Absolute Neutrophil Count 7.8 X10^3/uL (2.0-7.7); Basophil% 0.8 % (0-1); Eosinophils% 0.8 % (0-5); Hematocrit 42.3 % (37-47); Lymphocyte # 3.82 X10^3/ul (0.83-4.51); Lymphocyte % 30.2 % (19-41); Mean Corp Hgb Conc 33.1 g/dL (32-36); Mean Corpuscular Hgb 28.7 pg (27.0-32.0); Mean Corpuscular Volume 86.7 fL (81-99); Mean Platelet Vol. 9.3 fl (6.2-12.0); Monocyte# 0.79 X10^3/uL; Monocyte% 6.3 % (0-10); NRBC Flagged by Analyzer 0 % (0-5); Neutrophil # 7.76 X10^3/uL (2.7-7.7); Neutrophil % 61.4 % (47-70); Platelet Count 452 K/mm3 (150-450); RBC Distribution Width CV 13.2 % (11.6-14.6); RBC Distribution Width SD 41.7 fl (35.1-43.9); Red Blood Count 4.88 M/mm3 (4.2-5.4); White Blood Count 12.6 K/mm3 (4.4-11.0)
[2021-01-01 10:47] LABS: Internal QC Validated? YES +Cl - CLEAR BKGD; Pregnancy, Serum, hCG Quali. NEGATIVE Negative
[2021-01-01 10:48] LABS: ALB/GLOB Ratio 1.3 RATIO (0.9-2.4); AST(SGOT) 10 U/L (15-37); Alanine Aminotransfer ALT/SGPT 17 U/L (13-56); Albumin, Serum 4.3 g/dL (3.2-5.0); Alkaline Phosphatase 65 U/L (45-117); Anion Gap 9 (5-15); BUN 15 mg/dL (7-18); BUN/Creat Ratio 25.7 RATIO (10-20); Calcium,Total 8.7 mg/dL (8.5-10.1); Chloride 108 mmol/L (98-107); Creatinine, Serum 0.58 mg/dL (0.55-1.02); EST Glomerular Filtration Rate 126 mL/min (>60); Est Glom Filt Rate - Afr Amer 153 mL/min (>60); Estimated Creatinine Clearance 119.13 ml/min; Globulin 3.2 g/dL (2.2-4.2); Glucose 89 mg/dL (74-106); Lipase 65 U/L (73-393); Potassium 3.7 mmol/L (3.5-5.1); Protein, Total 7.5 g/dL (6.4-8.2); Sodium Level 138 mmol/L (136-145)
[2021-01-01 11:00] LABS: Bacteria 0 SEEN /hpf (None Seen); Mucous, Urine 0 SEEN /hpf (<or=2+); Red Blood Cells-Urine 0 SEEN /hpf (0-5); White Blood Cells 0 SEEN /hpf (0-5)
[2021-01-01 11:01] LABS: Color, Urine Yellow (Yellow); Glucose, Dipstick Normal (Normal); Ketone-Dipstick 5 mg/dl (Negative); Leukocyte Esterase-Dipstick Negative /ul (Negative); Nitrite-Dipstick Negative (Negative); Occult Blood-Urine 50 /ul (Negative); Protein-Dipstick 15 mg/dl (Negative); Urine Bilirubin Dipstick Negative (Negative); Urine Clarity Sl. Cloudy (Clear); Urine Urobilinogen Normal (Normal)
[2021-01-01 11:07] LABS: Squamous Epithelial Cells - UA 0-5 SEEN /hpf (5-10)
[2021-01-01] MEDS: proMETHazine 25 MG/ML Syringe 6.25 MG IM (11:34)
[2021-01-01] MEDS: HYDROmorphone 0.5 MG/0.5 ML SYRINGE IV (11:34)
[2021-01-01 11:41] VITALS: BP 137/71; PULSE 71; RESP 16; O2SAT 97
== END 2021-01-01 11:48 | disposition home or self-care (01) ==
PROVIDERS: Emergency Provider Emergency Medicine; PCP Family Medicine
DX: K50.90 Crohn's disease, unspecified, without complications (principal); Z87.891 Personal history of nicotine dependence
CPT/HCPCS: 80053; 81001; 83690; 84703; 85025; 96361; 96372; 96374; 96375; 96376; 99283; J7030; A4216; J2405

== ENCOUNTER 2021-02-26 12:22 | Emergency (ER) | payer BC, SELFPAY ==
[2021-02-26 12:22] VITALS: BP 116/73; PULSE 92; RESP 18; TEMP 36.5; O2SAT 96; BMI 24.0
[2021-02-26] MEDS: Ondansetron 4 MG/2 ML Vial IV (12:38)
[2021-02-26 12:42] LABS: Absolute Lymphocyte Count 4.97 X10^3/uL (0.83-4.51); Basophil% 0.7 % (0-1); Eosinophil# 0.28 X10^3/uL; Eosinophils% 1.9 % (0-5); Hematocrit 39.2 % (37-47); Hemoglobin 13.2 g/dL (12.0-15.0); Lymphocyte # 4.97 X10^3/ul (0.83-4.51); Lymphocyte % 33.9 % (19-41); Mean Corp Hgb Conc 33.7 g/dL (32-36); Mean Corpuscular Hgb 29.1 pg (27.0-32.0); Mean Corpuscular Volume 86.5 fL (81-99); Mean Platelet Vol. 9.2 fl (6.2-12.0); Monocyte# 1.19 X10^3/uL; Monocyte% 8.1 % (0-10); NRBC Flagged by Analyzer 0 % (0-5); Neutrophil # 8.04 X10^3/uL (2.7-7.7); Neutrophil % 54.9 % (47-70); Platelet Count 393 K/mm3 (150-450); RBC Distribution Width CV 13.2 % (11.6-14.6); RBC Distribution Width SD 41.2 fl (35.1-43.9); Red Blood Count 4.53 M/mm3 (4.2-5.4); White Blood Count 14.7 K/mm3 (4.4-11.0)
[2021-02-26] MEDS: 0.9% Normal Saline 1,000 ML 1000 ML IV (12:50)
[2021-02-26] MEDS: HYDROmorphone 1 MG/ML Syringe IV (12:50)
[2021-02-26 13:10] LABS: ALB/GLOB Ratio 1.4 RATIO (0.9-2.4); AST(SGOT) 14 U/L (15-37); Alanine Aminotransfer ALT/SGPT 19 U/L (13-56); Albumin, Serum 4.2 g/dL (3.2-5.0); Alkaline Phosphatase 70 U/L (45-117); Anion Gap 9 (5-15); BUN 12 mg/dL (7-18); BUN/Creat Ratio 19.7 RATIO (10-20); Calcium,Total 8.7 mg/dL (8.5-10.1); Chloride 104 mmol/L (98-107); Creatinine, Serum 0.61 mg/dL (0.55-1.02); EST Glomerular Filtration Rate 120 mL/min (>60); Est Glom Filt Rate - Afr Amer 145 mL/min (>60); Estimated Creatinine Clearance 113.27 ml/min; Globulin 3.1 g/dL (2.2-4.2); Glucose 88 mg/dL (74-106); Potassium 3.6 mmol/L (3.5-5.1); Protein, Total 7.3 g/dL (6.4-8.2); Sodium Level 138 mmol/L (136-145)
--- NOTE | 2021-02-26 13:44 | EDS_ITS ---
HPI History of Present Illness Chief Complaint: Abd Pain Informant: patient Narrative Narrative: 35-year-old female with a history of Crohn's presents the emergency department with vomiting and diarrhea and abdominal pain. She states that this is very typical for her Crohn's flareups. She currently sees GI in [place]. She is not on any maintenance Crohn's therapy. She states that typically when she has flares she tries to handle it through diet because steroids do not seem to help her much. The patient denies any fevers. She has noted some blood in the stool. She states she has been under a great deal of stress recently with numerous deaths. She has Zofran and Phenergan at home. She also takes Bentyl. [facility] Medical History Abdominal pain Anxiety Colitis Crohns disease Depression Stephanie Tobar infection Nausea Sleep apnea Home Medications multivitamin,il-nypf-eytleabt 1 tab PO DAILY 09/29/19 [History Last Taken Unknown] dicyclomine 20 mg PO TID PRN 10/24/20 [History Last Taken Unknown] Lactobacillus acidophilus [Acidophilus] 1,000 mmu cells PO DAILY 01/01/21 [History Last Taken Unknown] ondansetron HCl [Zofran] 4 mg PO Q6H 01/01/21 [History Last Taken Unknown] citalopram [Celexa] 30 mg PO DAILY 02/26/21 [History Last Taken Unknown] oxycodone-acetaminophen 1 tab PO Q6H PRN PRN 3 Days #12 tablet 02/26/21 [Rx Last Taken Unknown] Allergy/AdvReac Type Severity Reaction Status Date / Time morphine AdvReac Mild increased Verified 02/26/21 12:24 HR NECTARINES AdvReac Angioedema Uncoded 02/26/21 12:24 Family History Mother Heart disease Pacemaker Grandfather Diabetes Grandmother Diabetes Surgical History History of colonoscopy (~2017) History of colonoscopy (~2017) History of esophagogastroduodenoscopy (EGD) (~2018) History of wisdom tooth extraction Social History Smoking Status: Former smoker alcohol intake: never substance use type: does not use caffeine: Yes what type of physical activity do you participate in: walking seatbelt use: always do you feel safe at home: Yes additional social history: [employer] ROS ROS ED Constitutional Constitutional ED: Denies chills or weight loss Eyes Eyes: Denies change in vision or diplopia ENT ENT ED: Denies ear pain, rhinorrhea or sore throat Cardiovascular Cardiovascular: Denies chest pain, orthopnea, palpitations or racing heartbeat Respiratory/Chest Respiratory/Chest: Denies cough, dyspnea or orthopnea Gastrointestinal Gastrointestinal: Reports abdominal pain, diarrhea, nausea, vomiting and other Details: Bright red blood per rectum Genitourinary Genitourinary ED: Denies dysuria, hematuria or urinary frequency Musculoskeletal Musculoskeletal: Denies arthralgias or myalgias Integumentary Denies abscess or rash Neurologic Neurologic: Denies headache(s) or weakness Psychiatric Psychiatric: Denies anxiety, depression, suicidal ideation or suicidal thoughts Endocrine Endocrinology: Denies polydipsia, polyphagia or polyuria Allergic/Immunologic Allergic/Immunologic ED: Denies mouth swelling, tongue swelling or urticaria EXAM Physical Exam Const Vital Signs: 02/26/21 12:22 Temperature 97.7 F L Temperature Source Temporal Pulse Rate 92 Respiratory Rate 18 Blood Pressure 116/73 Blood Pressure Mean 87 Pulse Ox 96 Oxygen Delivery Method Room Air Positive well nourished and well developed General Appearance ED: well developed HEENT Reports normocephalic, head/scalp atraumatic and moist mucous membranes Eyes PERRL and EOMs intact bilaterally Neck no lymphadenopathy, supple and no JVD Resp normal respiratory effort and clear to auscultation bilaterally Cardio regular rate, regular rhythm and no murmurs GI GI Narrative: Patient is diffusely tender to palpation without guarding or rebound Auscultation: normoactive bowel sounds Palpation: soft and tender; Negative for guarding or rebound tenderness present Back/Spine no CVA tenderness and normal ROM Extremity normal to inspection General Extremety ED: Negative for edema General Extremity: Negative for edema Neuro oriented x3 and CN's II-XII intact bilaterally Sensorium / Orientation: alert Motor Exam: strength 5/5 throughout Psych mental status grossly normal Mood & Affect: tearful; Negative for depressed Skin no rashes or lesions noted and no wounds MDM MDM MDM Narrative Medical decision making narrative: Patient received IV fluids as well as Dilaudid and Zofran. White count shows a leukocytosis at 14. CMP is normal. Patient was given a p.o. challenge and passed. I can write for her to have some Percocet at home. Would recommend following up with her GI doctor. At this point with her history of Crohn's and her presenting symptoms and her exam I do not feel imaging is needed. Lab Data Attestation: I reviewed the patient's lab results. Labs: Laboratory Results - last 24 hr 02/26/21 02/26/21 12:35 12:35 WBC 14.7 H RBC 4.53 Hgb 13.2 Hct 39.2 MCV 86.5 MCH 29.1 MCHC 33.7 RDW Std Deviation 41.2 RDW Coeff of Dimitrios 13.2 Plt Count 393 MPV 9.2 Immature Gran % (Auto) 0.500 Neut % (Auto) 54.9 Lymph % (Auto) 33.9 [place] % (Auto) 8.1 Eos % (Auto) 1.9 Baso % (Auto) 0.7 Absolute Neuts (auto) 8.0 H Absolute Lymphs (auto) 4.97 H Nucleated RBC % 0 Sodium 138 Potassium 3.6 Chloride 104 Carbon Dioxide 25.0 Anion Gap 9 BUN 12 Creatinine 0.61 Estim Creat Clear Calc 113.27 Est GFR (MDRD) Af Amer 145 Est GFR (MDRD) Non-Af 120 BUN/Creatinine Ratio 19.7 Glucose 88 Calcium 8.7 Total Bilirubin 0.40 AST 14 L ALT 19 Alkaline Phosphatase 70 Total Protein 7.3 Albumin 4.2 Globulin 3.1 Albumin/Globulin Ratio 1.4 Discharge Plan Triage Chief Complaint: Abd Pain ED Provider: Dylan Mujica Dx/Rx/DC Orders Clinical Impression: Exacerbation of Crohn's disease Instructions: Crohn Disease Lifestyle Manage Prescriptions: New oxycodone-acetaminophen [oxycodone-acetaminophen] 1 TABLET tablet 1 tab PO Q6H PRN PRN (Reason: Pain) 3 Days Qty: 12 RF: 0 No Action Complete Multivitamin Tablet 1 tab PO DAILY RF: 0 dicyclomine 20 MG tablet 20 mg PO TID PRN (Reason: Cramp) RF: 0 ondansetron HCl [Zofran] 4 mg Tablet 4 mg PO Q6H RF: 0 Acidophilus Tablet 1,000 mmu cells PO DAILY RF: 0 citalopram [Celexa] 20 mg Tablet 30 mg PO DAILY RF: 0 Primary Care Provider: Azael Lr Referrals: Azael Lr MD [Primary Care Provider] - As Needed Disposition Disposition: Home, Self Care
[2021-02-26] MEDS: HYDROmorphone 0.5 MG/0.5 ML SYRINGE IV (13:59)
[2021-02-26 14:06] VITALS: BP 131/67; PULSE 80; RESP 19; O2SAT 100
--- NOTE | 2021-02-26 14:39 | ED.RN ---
PT WAS OBSERVED FOR SHOT TIME FOR GREATER THAN 15 MINUTES, NO REACTION NOTED BY THIS RN. PT D/C.
== END 2021-02-26 14:38 | disposition home or self-care (01) ==
PROVIDERS: Emergency Provider Emergency Medicine; PCP Family Medicine
DX: K50.90 Crohn's disease, unspecified, without complications (principal); F41.9 Anxiety disorder, unspecified; F32.9 Major depressive disorder, single episode, unspecified; Z79.899 Other long term (current) drug therapy; Z87.891 Personal history of nicotine dependence
CPT/HCPCS: 80053; 85025; 96361; 96374; 96375; 96376; 99283; J7030; A4216

== ENCOUNTER 2021-04-08 11:56 | Emergency (ER) | payer BC, SELFPAY ==
[2021-04-08 11:57] VITALS: BP 117/76; PULSE 72; RESP 15; TEMP 36.3; O2SAT 98; BMI 25.4
--- NOTE | 2021-04-08 12:07 | CT_ITS ---
EXAM: CT ABDOMEN AND PELVIS WITHOUT INTRAVENOUS CONTRAST : 1985 CLINICAL INDICATION: Pain TECHNIQUE: Helically acquired images were obtained of the abdomen and pelvis without intravenous contrast. This CT exam was performed using one or more of the following dose reduction techniques: automated exposure control, adjustment of the mA and/or kV according to patient size, and/or use of iterative reconstruction technique. This report was created using [employer] report generation technology. COMPARISON: 01/10/2020 FINDINGS: LOWER THORAX: Unremarkable. Lung bases are clear. No cardiomegaly. No significant pericardial effusion. ABDOMEN: LIVER: Unremarkable. Homogeneous. GALLBLADDER AND BILE DUCTS: Unremarkable. No calcified gallstones. No gallbladder distention or wall edema. No intra- or extrahepatic biliary ductal dilation. PANCREAS: Unremarkable. No focal cystic mass. SPLEEN: Unremarkable. Normal size without focal cystic or solid mass. ADRENALS: Unremarkable. No nodules. KIDNEYS AND URETERS: Unremarkable. Normal renal size and position. No hydronephrosis. STOMACH AND BOWEL: Unremarkable. No stomach or bowel distention. No focal inflammatory change. PELVIS: APPENDIX: No evidence of acute appendicitis. BLADDER: Unremarkable. REPRODUCTIVE: Unremarkable as visualized. No mass. ABDOMEN and PELVIS: INTRAPERITONEAL SPACE: Unremarkable. No ascites or other fluid collection. No free air. BONES/JOINTS: Unremarkable. No suspicious lytic or blastic abnormality. SOFT TISSUES: Unremarkable. No discrete abdominal or pelvic wall hernia. VASCULATURE: Unremarkable. Abdominal aorta is non-dilated. LYMPH NODES: Unremarkable. No enlarged lymph nodes. CT/Abdomen/Pelvis without Cont IMPRESSION: Negative CT of the abdomen and pelvis without intravenous contrast. Individualized dose optimization techniques were used for this CT. at 1320 Reported and signed by: Sam Otero MD Electronically Signed: Sam Otero MD at 13:19 EDT Tel , Service support ,
--- NOTE | 2021-04-08 12:09 | ED.VIS.GI ---
HPI HPI - GI History of Present Illness Chief Complaint: Flank Pain Informant: patient Abdominal Pain/Flank Pain Onset: Yesterday Context: Gradual Onset Timing: Continuous Location: Diffuse and Right Flank Current Severity: Mild Maximum Severity: Moderate Nausea/Vomiting/Emesis GI Symptom: Positive for Nausea and Vomiting Onset: Today and Yesterday Quality: Positive for Nonbilious Severity: Mild Diarrhea/Melena/Hematochezia GI Symptom: Positive for Diarrhea and Hematochezia; Negative for Melena Onset: Today and Yesterday Stool Quality: Positive for Watery Severity: Mild Associated Symptoms Associated Symptoms: Positive for Dysuria; Negative for Frequency and Hematuria Narrative Narrative: Abdominal surgeries. States yesterday started having watery diarrhea. Small amount of rectal bleeding. She denies any fever or chills. Mild dysuria. Mild right flank pain. No history of kidney stones or gallstones. She denies any hematemesis or melena.35-year-old female history of Crohn's disease. Has had prior endoscopy. Denies any Prior similar symptoms: Yes Recent Illness/Hospitalization: No PFSH PFSH Medical History Abdominal pain Anxiety Colitis Crohns disease Depression Stephanie Tobar infection Nausea Sleep apnea Home Medications NK 04/08/21 [History Last Taken Unknown] Allergy/AdvReac Type Severity Reaction Status Date / Time morphine AdvReac Mild increased Verified 04/08/21 11:57 HR NECTARINES AdvReac Angioedema Uncoded 02/26/21 12:24 Family History Mother Heart disease Pacemaker Grandfather Diabetes Grandmother Diabetes Surgical History History of colonoscopy (~2017) History of colonoscopy (~2017) History of esophagogastroduodenoscopy (EGD) (~2018) History of wisdom tooth extraction Social History Smoking Status: Former smoker alcohol intake: never substance use type: does not use caffeine: Yes what type of physical activity do you participate in: walking seatbelt use: always do you feel safe at home: Yes additional social history: [employer] ROS ROS ED ROS Narrative Nausea, vomiting, diarrhea. No rectal bleeding. Mild dysuria. Abdominal pain. Review of Systems ROS Unobtainable: Denies due to encephalopathy Constitutional Constitutional ED: Denies chills or fever(s) ENT ENT ED: Denies ear pain or sore throat Cardiovascular Cardiovascular: Denies chest pain Respiratory/Chest Respiratory/Chest: Denies cough or dyspnea Gastrointestinal Gastrointestinal: Reports abdominal pain, diarrhea, nausea and vomiting; Denies constipation or melena Genitourinary Genitourinary ED: Reports dysuria; Denies hematuria or urinary frequency Musculoskeletal Musculoskeletal: Denies arthralgias or myalgias Integumentary Denies rash Neurologic Neurologic: Denies headache(s) Psychiatric Psychiatric: Denies depression Endocrine Endocrinology: Denies polyuria Hematologic/Lymphatic Hematologic/Lymphatic: Denies easy bruising Allergic/Immunologic Allergic/Immunologic ED: Denies urticaria EXAM Physical Exam Narrative Exam Narrative: 35-year-old female complaining of pain. Vital signs stable afebrile. HEENT exam unremarkable except mild dry mucous memories. Neck nontender. No lymphadenopathy. Lungs clear to auscultation bilaterally. Heart regular rhythm rate about 70 no murmur. Abdomen soft. Nondistended. Normal bowel sounds no peritoneal signs. Diffusely tender more so in the right flank and right upper quadrant. No Márquez sign. No McBurney's point tenderness. No hernias or masses. No signs of obstruction. Normal bowel sounds. Moving all 4 extremities. Nontender no edema. Back nontender. Neurologically awake and alert with no focal motor deficits. Const Vital Signs: 04/08/21 11:57 Temperature 97.3 F L Temperature Source Temporal Pulse Rate 72 Respiratory Rate 15 Blood Pressure 117/76 Blood Pressure Mean 89 Pulse Ox 98 Oxygen Delivery Method Room Air HEENT Reports dry mucous membranes normocephalic and atraumatic; Negative for trauma or tenderness Mouth ED: Yes dry mucous membranes Mouth: dry mucous membranes Eyes PERRL and EOMs intact bilaterally Neck no lymphadenopathy, supple and no JVD General: Negative for tenderness Resp normal respiratory effort Auscultation: Negative for rales, rhonchi or wheezes Cardio regular rate, regular rhythm, S1 normal heart sound, S2 normal heart sound and no murmurs GI non-distended and no masses GI Narrative: Diffuse tenderness more so in the right upper quadrant and right flank. No peritoneal signs. No signs of obstruction. Inspection: Negative for abdominal distention Auscultation: normoactive bowel sounds; Negative for hyperactive bowel sounds or hypoactive bowel sounds Palpation: soft; Negative for tender, guarding, rigid or rebound tenderness present Back/Spine no CVA tenderness General Back: Negative for CVA tenderness Extremity full ROM General Extremety ED: Negative for edema or tenderness General Extremity: Negative for edema Neuro CN's II-XII intact bilaterally Sensorium / Orientation: alert, oriented to person, oriented to place and oriented to time; Negative for orientation impaired Motor Exam: strength 5/5 throughout Psych mental status grossly normal Skin Lesions: no lesions Rashes: no rashes MDM MDM MDM Narrative Medical decision making narrative: Younger woman with known Crohn's disease with nausea vomiting and diarrhea. Mild rectal bleeding. With abdominal pain primarily right flank. Screening labs will be obtained along with a CAT scan without contrast. Urinalysis. IV fluids, Dilaudid and Zofran will be given. Along with Toradol. Repeat exam patient doing well at 3:15 PM abdomen benign. She will be discharged home with outpatient follow-up. She has nausea medication at home. Lab Data Attestation: I reviewed the patient's lab results. Lab results narrative: CBC shows a white count 9. Hemoglobin 13. Serum test negative. Electrolytes unremarkable gap of 6 normal creatinine. Normal liver enzymes. Normal lipase. Urinalysis shows blood but no infection. CT flank study without contrast shows no acute abnormality. Read by the radiologist and reviewed by me. Labs: Laboratory Results - last 24 hr 04/08/21 04/08/21 04/08/21 12:10 12:10 12:10 WBC 9.4 RBC 4.51 Hgb 13.3 Hct 39.4 MCV 87.4 MCH 29.5 MCHC 33.8 RDW Std Deviation 43.2 RDW Coeff of Dimitrios 13.4 Plt Count 401 MPV 9.4 Immature Gran % (Auto) 0.500 Neut % (Auto) 59.1 Lymph % (Auto) 31.7 [place] % (Auto) 6.0 Eos % (Auto) 2.0 Baso % (Auto) 0.7 Absolute Neuts (auto) 5.6 Absolute Lymphs (auto) 2.98 Nucleated RBC % 0 Sodium 139 Potassium 3.7 Chloride 111 H Carbon Dioxide 22.0 Anion Gap 6 BUN 16 Creatinine 0.57 Estim Creat Clear Calc 121.22 Est GFR (MDRD) Af Amer 157 Est GFR (MDRD) Non-Af 130 BUN/Creatinine Ratio 28.1 H Glucose 103 Calcium 9.2 Total Bilirubin 0.50 AST 12 L ALT 19 Alkaline Phosphatase 58 Total Protein 7.4 Albumin 4.1 Globulin 3.3 Albumin/Globulin Ratio 1.2 Lipase 90 Serum , Qual NEGATIVE Urine Color Urine Clarity Urine pH Ur Specific [place] Urine Protein Urine Glucose (UA) Urine Ketones Urine Occult Blood Urine Nitrite Urine Bilirubin Urine Urobilinogen Ur Leukocyte Esterase Urine RBC Urine WBC Ur Squamous Epith Cells Urine Bacteria Urine Mucus 04/08/21 13:00 WBC RBC Hgb Hct MCV MCH MCHC RDW Std Deviation RDW Coeff of Dimitrios Plt Count MPV Immature Gran % (Auto) Neut % (Auto) Lymph % (Auto) [place] % (Auto) Eos % (Auto) Baso % (Auto) Absolute Neuts (auto) Absolute Lymphs (auto) Nucleated RBC % Sodium Potassium Chloride Carbon Dioxide Anion Gap BUN Creatinine Estim Creat Clear Calc Est GFR (MDRD) Af Amer Est GFR (MDRD) Non-Af BUN/Creatinine Ratio Glucose Calcium Total Bilirubin AST ALT Alkaline Phosphatase Total Protein Albumin Globulin Albumin/Globulin Ratio Lipase Serum , Qual Urine Color Straw Urine Clarity Sl. Cloudy Urine pH 6.0 Ur Specific [place] 1.010 Urine Protein 15 H Urine Glucose (UA) Normal Urine Ketones Negative Urine Occult Blood 250 H Urine Nitrite Negative Urine Bilirubin Negative Urine Urobilinogen Normal Ur Leukocyte Esterase 25 H Urine RBC 25-50 SEEN Urine WBC 0 SEEN Ur Squamous Epith Cells 0 SEEN Urine Bacteria RARE Urine Mucus 0 SEEN Radiography Diagnostic Testing: Radiology Impression Abdomen/Pelvis CT 04/08/21 12:07 IMPRESSION: Negative CT of the abdomen and pelvis without intravenous contrast. Individualized dose optimization techniques were used for this CT. at 1320 Reported and signed by: Sam Otero MD Electronically Signed: Sam Otero MD at 13:19 EDT Tel , Service support , Discharge Plan Triage Chief Complaint: Flank Pain ED Provider: Erick Ackerman Dx/Rx/DC Orders Clinical Impression: Abdominal pain, Vomiting and diarrhea Instructions: Abdominal Pain Prescriptions: No Action NK RF: 0 Primary Care Provider: Azael Lr Referrals: Azael Lr MD [Primary Care Provider] - 3-5 Days if not improving Activity Restrictions/Additional Instructions: Plenty fluids and rest. Increase diet slowly as tolerated. Zofran as needed for nausea. Follow-up with your doctor if not improving or return if worse. Disposition Disposition: Home, Self Care
[2021-04-08] MEDS: Ondansetron 4 MG/2 ML Vial IV (12:17)
[2021-04-08] MEDS: Ketorolac 30 MG/ML Syringe IV (12:17)
[2021-04-08 12:18] LABS: Absolute Lymphocyte Count 2.98 X10^3/uL (0.83-4.51); Absolute Neutrophil Count 5.6 X10^3/uL (2.0-7.7); Basophil# 0.07 X10^3/uL; Basophil% 0.7 % (0-1); Eosinophil# 0.19 X10^3/uL; Hematocrit 39.4 % (37-47); Hemoglobin 13.3 g/dL (12.0-15.0); Lymphocyte # 2.98 X10^3/ul (0.83-4.51); Lymphocyte % 31.7 % (19-41); Mean Corp Hgb Conc 33.8 g/dL (32-36); Mean Corpuscular Hgb 29.5 pg (27.0-32.0); Mean Corpuscular Volume 87.4 fL (81-99); Mean Platelet Vol. 9.4 fl (6.2-12.0); Monocyte# 0.56 X10^3/uL; NRBC Flagged by Analyzer 0 % (0-5); Neutrophil # 5.55 X10^3/uL (2.7-7.7); Neutrophil % 59.1 % (47-70); Platelet Count 401 K/mm3 (150-450); RBC Distribution Width CV 13.4 % (11.6-14.6); RBC Distribution Width SD 43.2 fl (35.1-43.9); Red Blood Count 4.51 M/mm3 (4.2-5.4); White Blood Count 9.4 K/mm3 (4.4-11.0)
[2021-04-08] MEDS: 0.9% Normal Saline 1,000 ML 1000 ML IV (12:18)
[2021-04-08] MEDS: HYDROmorphone 1 MG/ML Syringe IV (12:25)
[2021-04-08 12:56] LABS: Internal QC Validated? YES +Cl - CLEAR BKGD; Pregnancy, Serum, hCG Quali. NEGATIVE Negative
[2021-04-08 13:05] LABS: ALB/GLOB Ratio 1.2 RATIO (0.9-2.4); AST(SGOT) 12 U/L (15-37); Alanine Aminotransfer ALT/SGPT 19 U/L (13-56); Albumin, Serum 4.1 g/dL (3.2-5.0); Alkaline Phosphatase 58 U/L (45-117); Anion Gap 6 (5-15); BUN 16 mg/dL (7-18); BUN/Creat Ratio 28.1 RATIO (10-20); Calcium,Total 9.2 mg/dL (8.5-10.1); Chloride 111 mmol/L (98-107); Creatinine, Serum 0.57 mg/dL (0.55-1.02); EST Glomerular Filtration Rate 130 mL/min (>60); Est Glom Filt Rate - Afr Amer 157 mL/min (>60); Estimated Creatinine Clearance 121.22 ml/min; Globulin 3.3 g/dL (2.2-4.2); Glucose 103 mg/dL (74-106); Lipase 90 U/L (73-393); Potassium 3.7 mmol/L (3.5-5.1); Protein, Total 7.4 g/dL (6.4-8.2); Sodium Level 139 mmol/L (136-145)
[2021-04-08 13:14] LABS: Mucous, Urine 0 SEEN /hpf (<or=2+); Squamous Epithelial Cells - UA 0 SEEN /hpf (5-10); White Blood Cells 0 SEEN /hpf (0-5)
[2021-04-08 13:17] LABS: Color, Urine Straw (Yellow); Glucose, Dipstick Normal (Normal); Ketone-Dipstick Negative (Negative); Leukocyte Esterase-Dipstick 25 /ul (Negative); Nitrite-Dipstick Negative (Negative); Occult Blood-Urine 250 /ul (Negative); Protein-Dipstick 15 mg/dl (Negative); Urine Bilirubin Dipstick Negative (Negative); Urine Clarity Sl. Cloudy (Clear); Urine Urobilinogen Normal (Normal)
[2021-04-08 13:24] LABS: Bacteria RARE /hpf (None Seen); Red Blood Cells-Urine 25-50 SEEN /hpf (0-5)
== END 2021-04-08 15:37 | disposition home or self-care (01) ==
LOC: ED 12:55
PROVIDERS: Emergency Provider Emergency Medicine; PCP Family Medicine
DX: R10.84 Generalized abdominal pain (principal); R11.2 Nausea with vomiting, unspecified; R19.7 Diarrhea, unspecified; Z87.891 Personal history of nicotine dependence
CPT/HCPCS: 74176; 80053; 81001; 83690; 84703; 85025; 96361; 96374; 96375; 99283; J7030; A4216; J2405

== ENCOUNTER 2021-07-12 17:20 | Emergency (ER) | payer BC, SELFPAY ==
[2021-07-12 17:20] VITALS: BP 112/72; PULSE 88; RESP 16; TEMP 37; O2SAT 99; BMI 25.0
--- NOTE | 2021-07-12 18:40 | ED.VIS.GI ---
HPI HPI - GI History of Present Illness Chief Complaint: Abd Pain Narrative Narrative: 34-year-old female presenting with what she believes is a Crohn's flare. This started about 2 days ago. Patient states is not on anything for maintenance of Crohn's and she sees Dr. Evans in [place]. She last saw him about a week and a half ago and he put her on Phenergan and said to call the office with anything new in 2 weeks. Since she has been having the pain she called his office and he told her to go to the emergency room. Her last endoscopy upper or lower was 5 years ago. Patient states that he did not want to start Humira because she has a history of tachycardia. Patient reports nausea, vomiting, diarrhea as well. No blood in her stool was noted. No black or bloody emesis. Patient denies any abdominal surgeries in the past. PFSH PFS Medical History Abdominal pain Anxiety Colitis Crohns disease Depression Stephanie Tobar infection Nausea Sleep apnea Home Medications alprazolam 1 mg PO TID PRN 07/12/21 [History Last Taken Unknown] citalopram 20 mg PO DAILY 07/12/21 [History Last Taken Unknown] pantoprazole 40 mg PO DAILY 07/12/21 [History Last Taken Unknown] prazosin 1 mg PO DAILY 07/12/21 [History Last Taken Unknown] prednisone 10 mg PO DAILY #48 tablet 07/12/21 [Rx Last Taken Unknown] promethazine 12.5 mg PO PRN PRN 07/12/21 [History Last Taken Unknown] Allergy/AdvReac Type Severity Reaction Status Date / Time morphine AdvReac Mild increased Verified 07/12/21 17:23 HR NECTARINES AdvReac Angioedema Uncoded 07/12/21 17:23 Family History Mother Heart disease Pacemaker Grandfather Diabetes Grandmother Diabetes Surgical History History of colonoscopy (~2017) History of colonoscopy (~2017) History of esophagogastroduodenoscopy (EGD) (~2018) History of wisdom tooth extraction Social History Smoking Status: Former smoker alcohol intake: never substance use type: does not use caffeine: Yes what type of physical activity do you participate in: walking seatbelt use: always do you feel safe at home: Yes additional social history: [employer] ROS ROS ED Constitutional Constitutional ED: Denies chills or fever(s) ENT ENT ED: Denies rhinorrhea or sore throat Cardiovascular Cardiovascular: Denies chest pain or palpitations Respiratory/Chest Respiratory/Chest: Denies cough, dyspnea or sputum Gastrointestinal Gastrointestinal: Reports abdominal pain, diarrhea, nausea and vomiting Genitourinary Genitourinary ED: Denies dysuria or hematuria Musculoskeletal Musculoskeletal: Denies arthralgias or myalgias Neurologic Neurologic: Denies headache(s) or paresthesias EXAM Physical Exam Const Vital Signs: 07/12/21 17:20 Temperature 98.6 F Temperature Source Temporal Pulse Rate 88 Respiratory Rate 16 Blood Pressure 112/72 Blood Pressure Mean 85 Pulse Ox 99 Oxygen Delivery Method Room Air Positive well nourished General Appearance ED: NAD; Negative for pallor HEENT Reports moist mucous membranes normocephalic and atraumatic Eyes PERRL and EOMs intact bilaterally Resp normal respiratory effort and clear to auscultation bilaterally GI non-distended Palpation: soft and tender LLQ, RLQ and RUQ Back/Spine no CVA tenderness Neuro CN's II-XII intact bilaterally Sensorium / Orientation: alert, oriented to person and oriented to place Psych mental status grossly normal and thought process normal Skin General Skin Exam: Negative for jaundice or pallor MDM MDM MDM Narrative Medical decision making narrative: Patient presenting with right-sided abdominal pain. She is concerned she is having a Crohn's flare. She did call her GI doctor, Dr. Evans who told her to come to the ER. She admits to nausea, vomiting, diarrhea. Patient given Dilaudid and Zofran with improvement of her pain. Her CBC shows she has a minimal leukocytosis of 11.2. H&H are stable. Platelets are normal. Renal function and electrolytes are normal. LFTs are normal. Lipase negative. Urinalysis negative for infection. Patient was given a second dose of Dilaudid and I believe at this point she is stable for discharge home. I will give her follow-up with Dr. Alva so that she can obtain care that is closer to her. I will place her on a prednisone taper. She is stable for discharge. Impression: 1. Crohn's flare Lab Data Labs: Laboratory Results - last 24 hr 07/12/21 07/12/21 07/12/21 18:20 18:20 18:50 WBC 11.2 H RBC 4.65 Hgb 13.9 Hct 40.9 MCV 88.0 MCH 29.9 MCHC 34.0 RDW Std Deviation 43.8 RDW Coeff of Dimitrios 13.5 Plt Count 385 MPV 9.8 Immature Gran % (Auto) 0.300 Neut % (Auto) 47.1 Lymph % (Auto) 42.4 H [place] % (Auto) 7.2 Eos % (Auto) 2.3 Baso % (Auto) 0.7 Absolute Neuts (auto) 5.3 Absolute Lymphs (auto) 4.75 H Nucleated RBC % 0 Sodium 139 Potassium 3.8 Chloride 108 H Carbon Dioxide 25.0 Anion Gap 6 BUN 11 Creatinine 0.65 Estim Creat Clear Calc 106.30 Est GFR (MDRD) Af Amer 135 Est GFR (MDRD) Non-Af 112 BUN/Creatinine Ratio 17.0 Glucose 92 Calcium 9.5 Total Bilirubin 0.20 AST 9 L ALT 15 Alkaline Phosphatase 58 Total Protein 7.6 Albumin 4.1 Globulin 3.5 Albumin/Globulin Ratio 1.2 Lipase 153 Urine Color Yellow Urine Clarity Clear Urine pH 7.0 Ur Specific [place] 1.005 Urine Protein Negative Urine Glucose (UA) Normal Urine Ketones Negative Urine Occult Blood 10 H Urine Nitrite Negative Urine Bilirubin Negative Urine Urobilinogen Normal Ur Leukocyte Esterase Negative Urine RBC 0 SEEN Urine WBC 0 SEEN Ur Squamous Epith Cells 0-5 SEEN Urine Bacteria 0 SEEN Urine Mucus 0 SEEN Urine Test Negative Discharge Plan Triage Chief Complaint: Abd Pain ED Provider: Mazin Franco Dx/Rx/DC Orders Instructions: Discharge Instructions for ... Prescriptions: New prednisone 10 mg tablet 10 mg PO DAILY Qty: 48 RF: 0 No Action alprazolam 1 mg tablet 1 mg PO TID PRN (Reason: Anxiety) RF: 0 prazosin 1 mg capsule 1 mg PO DAILY RF: 0 promethazine 12.5 mg tablet 12.5 mg PO PRN PRN (Reason: Nausea) RF: 0 citalopram 20 mg tablet 20 mg PO DAILY RF: 0 pantoprazole 40 mg tablet,delayed release (DR/EC) 40 mg PO DAILY RF: 0 Primary Care Provider: Azael Lr Referrals: Azael Lr MD [Primary Care Provider] - Friend,DO Jeremiah [STAFF PHYSICIAN] - As soon as possible Disposition Disposition: Home, Self Care
[2021-07-12 18:44] LABS: Absolute Lymphocyte Count 4.75 X10^3/uL (0.83-4.51); Absolute Neutrophil Count 5.3 X10^3/uL (2.0-7.7); Basophil# 0.08 X10^3/uL; Basophil% 0.7 % (0-1); Eosinophil# 0.26 X10^3/uL; Eosinophils% 2.3 % (0-5); Hematocrit 40.9 % (37-47); Hemoglobin 13.9 g/dL (12.0-15.0); Lymphocyte # 4.75 X10^3/ul (0.83-4.51); Lymphocyte % 42.4 % (19-41); Mean Corpuscular Hgb 29.9 pg (27.0-32.0); Mean Platelet Vol. 9.8 fl (6.2-12.0); Monocyte# 0.81 X10^3/uL; Monocyte% 7.2 % (0-10); NRBC Flagged by Analyzer 0 % (0-5); Neutrophil # 5.26 X10^3/uL (2.7-7.7); Neutrophil % 47.1 % (47-70); Platelet Count 385 K/mm3 (150-450); RBC Distribution Width CV 13.5 % (11.6-14.6); RBC Distribution Width SD 43.8 fl (35.1-43.9); Red Blood Count 4.65 M/mm3 (4.2-5.4); White Blood Count 11.2 K/mm3 (4.4-11.0)
[2021-07-12] MEDS: 0.9% Normal Saline 1,000 ML 999 ML IV (18:46)
[2021-07-12] MEDS: Ondansetron 4 MG/2 ML Vial IV (18:48)
[2021-07-12 19:03] LABS: Bacteria 0 SEEN /hpf (None Seen); Mucous, Urine 0 SEEN /hpf (<or=2+); Red Blood Cells-Urine 0 SEEN /hpf (0-5); White Blood Cells 0 SEEN /hpf (0-5)
[2021-07-12] MEDS: HYDROmorphone 1 MG/ML Syringe IV ×2 (19:07→20:42)
[2021-07-12 19:15] LABS: ALB/GLOB Ratio 1.2 RATIO (0.9-2.4); AST(SGOT) 9 U/L (15-37); Alanine Aminotransfer ALT/SGPT 15 U/L (13-56); Albumin, Serum 4.1 g/dL (3.2-5.0); Alkaline Phosphatase 58 U/L (45-117); Anion Gap 6 (5-15); BUN 11 mg/dL (7-18); Calcium,Total 9.5 mg/dL (8.5-10.1); Chloride 108 mmol/L (98-107); Creatinine, Serum 0.65 mg/dL (0.55-1.02); EST Glomerular Filtration Rate 112 mL/min (>60); Est Glom Filt Rate - Afr Amer 135 mL/min (>60); Globulin 3.5 g/dL (2.2-4.2); Glucose 92 mg/dL (74-106); Lipase 153 U/L (73-393); Potassium 3.8 mmol/L (3.5-5.1); Protein, Total 7.6 g/dL (6.4-8.2); Sodium Level 139 mmol/L (136-145)
[2021-07-12 19:51] LABS: Color, Urine Yellow (Yellow); Glucose, Dipstick Normal (Normal); Ketone-Dipstick Negative (Negative); Leukocyte Esterase-Dipstick Negative /ul (Negative); Nitrite-Dipstick Negative (Negative); Occult Blood-Urine 10 /ul (Negative); Protein-Dipstick Negative (Negative); Specific Gravity, Urine 1.005 (1.002-1.030); Urine Bilirubin Dipstick Negative (Negative); Urine Clarity Clear (Clear); Urine Urobilinogen Normal (Normal)
[2021-07-12 20:02] LABS: Internal QC Validated? YES +Cl - CLEAR BKGD; Pregnancy, Urine Negative Negative; Squamous Epithelial Cells - UA 0-5 SEEN /hpf (5-10)
[2021-07-12] MEDS: MethylPREDNISolone 125 MG/2 ML Vial IV (20:42)
[2021-07-12 20:48] VITALS: BP 123/66; PULSE 63; RESP 16; O2SAT 99
== END 2021-07-12 20:48 | disposition home or self-care (01) ==
PROVIDERS: Emergency Provider Student in an Organized Health Care Education/Training Program; PCP Family Medicine
DX: K50.90 Crohn's disease, unspecified, without complications (principal); F41.9 Anxiety disorder, unspecified; F32.A Depression, unspecified; Z79.899 Other long term (current) drug therapy; Z87.891 Personal history of nicotine dependence
CPT/HCPCS: 80053; 81001; 81025; 83690; 85025; 96361; 96374; 96375; 96376; 99283; J7030; A4216; J2405

== ENCOUNTER 2021-11-22 20:12 | Emergency (ER) | payer OTHER, SELFPAY ==
[2021-11-22 20:13] VITALS: BP 118/45; PULSE 95; RESP 16; TEMP 36.7; O2SAT 98; BMI 25.9
[2021-11-22] MEDS: Ondansetron 4 MG/2 ML Vial IV (20:51)
[2021-11-22] MEDS: 0.9% Normal Saline 1,000 ML 1000 ML IV (20:51)
[2021-11-22 20:53] LABS: Color, Urine Yellow (Yellow); Glucose, Dipstick Normal (Normal); Ketone-Dipstick Negative (Negative); Leukocyte Esterase-Dipstick 25 /ul (Negative); Nitrite-Dipstick Negative (Negative); Occult Blood-Urine 25 /ul (Negative); Protein-Dipstick Negative (Negative); Specific Gravity, Urine 1.015 (1.002-1.030); Urine Bilirubin Dipstick Negative (Negative); Urine Clarity Cloudy (Clear); Urine Urobilinogen Normal (Normal)
[2021-11-22 20:53] LABS: Absolute Lymphocyte Count 4.21 X10^3/uL (0.83-4.51); Absolute Neutrophil Count 5.4 X10^3/uL (2.0-7.7); Basophil# 0.07 X10^3/uL; Basophil% 0.7 % (0-1); Eosinophils% 2.8 % (0-5); Hematocrit 38.3 % (37-47); Hemoglobin 13.6 g/dL (12.0-15.0); Lymphocyte # 4.21 X10^3/ul (0.83-4.51); Lymphocyte % 39.4 % (19-41); Mean Corp Hgb Conc 35.5 g/dL (32-36); Mean Corpuscular Hgb 30.4 pg (27.0-32.0); Mean Corpuscular Volume 85.5 fL (81-99); Mean Platelet Vol. 9.8 fl (6.2-12.0); Monocyte# 0.64 X10^3/uL; NRBC Flagged by Analyzer 0 % (0-5); Neutrophil # 5.44 X10^3/uL (2.7-7.7); Neutrophil % 50.8 % (47-70); Platelet Count 380 K/mm3 (150-450); RBC Distribution Width CV 13.2 % (11.6-14.6); RBC Distribution Width SD 41.6 fl (35.1-43.9); Red Blood Count 4.48 M/mm3 (4.2-5.4); White Blood Count 10.7 K/mm3 (4.4-11.0)
[2021-11-22 21:08] LABS: Anion Gap 6 (5-15); BUN 15 mg/dL (7-18); Calcium,Total 9.2 mg/dL (8.5-10.1); Chloride 109 mmol/L (98-107); Creatinine, Serum 0.68 mg/dL (0.55-1.02); EST Glomerular Filtration Rate 105 mL/min (>60); Est Glom Filt Rate - Afr Amer 127 mL/min (>60); Estimated Creatinine Clearance 101.61 ml/min; Glucose 100 mg/dL (74-106); Potassium 3.6 mmol/L (3.5-5.1); Sodium Level 140 mmol/L (136-145)
--- NOTE | 2021-11-22 22:01 | ED.RN ---
made aware that the pt vomitted and is asking for DILAUDID. SAID NOPE.
--- NOTE | 2021-11-22 22:44 | ED.RN ---
2039 DR SÁNCHEZ MADE AWARE THAT THE PT IS ALLERGIC TO MORPHINE. STATED HE WAS NOT ORDERING HER ANYTHING. PT AWARE MD IS AWARE.
--- NOTE | 2021-11-22 22:47 | ED.RN ---
Addendum entered by Tamar Urbina 11/23/21 00:22: BECAUSE PT WAS C/O NAUSEA AND MD AWARE. Original Note: 2204 PLACED A COOL WASH CLOTH ON THE BACK OF THE PT'S NECK.
--- NOTE | 2021-11-22 22:49 | EDS_ITS ---
HPI HPI - GI History of Present Illness Chief Complaint: Abd Pain Detail of Chief Complaint: Lower abdominal pain due to exacerbation of Crohn's Informant: patient Abdominal Pain/Flank Pain Onset: Today Context: Sudden Onset Timing: Continuous and Waxes and wanes Quality: Aching and Cramping Location: RLQ and LLQ Current Severity: Mild Maximum Severity: Severe Worsened by: Movement Relieved by: Nothing Nausea/Vomiting/Emesis GI Symptom: Positive for Nausea and Vomiting Onset: Today Episodes: 3 Diarrhea/Melena/Hematochezia GI Symptom: Positive for Diarrhea and Hematochezia; Negative for Melena Onset: Today Stool Quality: Positive for Loose Severity: Moderate Episodes: 10 Associated Symptoms Associated Symptoms: Negative for Dysuria, Frequency, Hematuria and Urgency Narrative Narrative: Patient is a 35-year-old woman with history of Crohn's disease. She states she sees a instrument lens generator affiliated with the [facility]. She presents because she has had 10 loose stools with blood. She normally has 4. Patient denies fever, chills night sweats. She denies headache, visual, ocular auditory symptoms denies neck pain or neck stiffness. She denies cardiac or respiratory symptoms. She denies hematemesis. She denies dysuria, frequency, urgency or hematuria. She denies decreased urine output. She denies orthostatic symptoms. She does complain of thirst and dry mouth. Prior similar symptoms: Yes Recent Illness/Hospitalization: No PFSH PFSH Medical History Abdominal pain Anxiety Colitis Crohns disease Depression Stephanie Tobar infection Nausea Sleep apnea Home Medications alprazolam 1 mg PO TID PRN 07/12/21 [History Last Taken Unknown] citalopram 20 mg PO DAILY 07/12/21 [History Last Taken Unknown] pantoprazole 40 mg PO DAILY 07/12/21 [History Last Taken Unknown] promethazine 12.5 mg PO PRN PRN 07/12/21 [History Last Taken Unknown] cetirizine [Zyrtec] 5 mg PO DAILY 11/22/21 [History Last Taken Unknown] Allergy/AdvReac Type Severity Reaction Status Date / Time morphine AdvReac Mild increased Verified 11/22/21 20:13 HR NECTARINES AdvReac Angioedema Uncoded 11/22/21 20:13 Family History Mother Heart disease Pacemaker Grandfather Diabetes Grandmother Diabetes Surgical History History of colonoscopy (~2017) History of colonoscopy (~2017) History of esophagogastroduodenoscopy (EGD) (~2018) History of wisdom tooth extraction Social History (Updated 11/22/21 @ 22:[address] Sukumar Jacobo MD) household members: spouse Smoking Status: Former smoker alcohol intake: never substance use type: does not use caffeine: Yes what type of physical activity do you participate in: walking seatbelt use: always do you feel safe at home: Yes additional social history: [employer] ROS ROS ED Constitutional Constitutional ED: Denies chills, fever(s), subjective, sweats or weight loss ENT ENT ED: Denies ear pain, rhinorrhea or sore throat Cardiovascular Cardiovascular: Denies chest pain, orthopnea, palpitations, paroxysmal nocturnal dyspnea or racing heartbeat Respiratory/Chest Respiratory/Chest: Denies cough, dyspnea, dyspnea on exertion, orthopnea, paroxysmal nocturnal dyspnea or sputum Gastrointestinal Gastrointestinal: Reports abdominal pain, diarrhea and vomiting; Denies constipation Genitourinary Genitourinary ED: Reports LMP (females 10-50) Details: Comment: (1 week ago); Denies dysuria, hematuria or urinary frequency Musculoskeletal Musculoskeletal: Denies arthralgias, myalgias or neck pain Integumentary Denies Abrasions or rash Psychiatric Psychiatric: Reports anxiety and depression Endocrine Endocrinology: Denies polydipsia, polyphagia or polyuria Hematologic/Lymphatic Hematologic/Lymphatic: Denies easy bleeding, easy bruising or lymphadenopathy EXAM Physical Exam Const Vital Signs: 11/22/21 20:13 Temperature 98.0 F Temperature Source Temporal Pulse Rate 95 Respiratory Rate 16 Blood Pressure 118/45 L Blood Pressure Mean 69 Pulse Ox 98 Oxygen Delivery Method Room Air Positive well nourished and well developed General Appearance ED: well developed and NAD; Negative for pallor HEENT Reports dry mucous membranes normocephalic and atraumatic Mouth ED: Yes dry mucous membranes Mouth: dry mucous membranes Eyes PERRL and EOMs intact bilaterally General Eye ED: Negative for pale conjunctiva or scleral icterus Neck no lymphadenopathy, supple and no JVD Resp normal respiratory effort and clear to auscultation bilaterally Cardio regular rate, regular rhythm, S1 normal heart sound, S2 normal heart sound and no murmurs GI non-tender, non-distended and no masses Inspection: Negative for abdominal distention Auscultation: hypoactive bowel sounds; Negative for normoactive bowel sounds Palpation: soft and tender RLQ (Without distraction); Negative for guarding, rigid or rebound tenderness present Back/Spine no CVA tenderness Thoracic Spine / Upper Back: Negative for thoracic spinal tenderness Lumbar Spine / Lower Back: Negative for lumbar spinal tenderness Extremity full ROM Neuro CN's II-XII intact bilaterally Sensorium / Orientation: alert, oriented to person, oriented to place and oriented to time Motor Exam: strength 5/5 throughout Psych thought process normal Mood & Affect: tearful Skin no wounds General Skin Exam: Negative for jaundice or pallor Lesions: no lesions Rashes: no rashes MDM MDM MDM Narrative Medical decision making narrative: Patient was given benefit of doubt that this is exacerbation of her Crohn's disease. Concerned that patient does not have as much pain is she is reporting because there was no discomfort in the right lower quadrant with distraction. Zofran and morphine were ordered. Patient states she was told by her doctor she cannot have morphine. Her listed allergy was increased heart rate. This was confirmed by me and the nurse. She was informed this is not an allergy. She was told that if she declined the morphine then nothing else will be given at this time until her laboratory results returned. She allowed the nurse to give her morphine and she did not have a reaction. She informed the nurse that she normally gets Dilaudid when she comes here. The nurse informed me of this. When I went to discharge the patient she asked why she was not given more pain medicine. I informed her that all of her laboratory results are unremarkable and since she is had no diarrhea during her stay here and no vomiting she could follow-up with her GI specialist or be referred to Dr. Alva. Patient had one episode of vomiting per the nurse after she got is old a couple of pop. She has not had vomiting since. I was informed by her nurse that she removed her IV and left prior to getting her discharge paperwork. Since she has left the discharge instructions were not printed. Lab Data Attestation: I reviewed the patient's lab results. Lab results narrative: White count and differential are normal. H&H and indices are normal. Basic metabolic panel is unremarkable. Urine reveals no ketones and specific gravity is not elevated. Labs: Laboratory Results - last 24 hr 11/22/21 11/22/21 11/22/21 20:20 20:33 20:33 WBC 10.7 RBC 4.48 Hgb 13.6 Hct 38.3 MCV 85.5 MCH 30.4 MCHC 35.5 RDW Std Deviation 41.6 RDW Coeff of Dimitrios 13.2 Plt Count 380 MPV 9.8 Immature Gran % (Auto) 0.300 Neut % (Auto) 50.8 Lymph % (Auto) 39.4 [place] % (Auto) 6.0 Eos % (Auto) 2.8 Baso % (Auto) 0.7 Absolute Neuts (auto) 5.4 Absolute Lymphs (auto) 4.21 Nucleated RBC % 0 Sodium 140 Potassium 3.6 Chloride 109 H Carbon Dioxide 25.0 Anion Gap 6 BUN 15 Creatinine 0.68 Estim Creat Clear Calc 101.61 Est GFR (MDRD) Af Amer 127 Est GFR (MDRD) Non-Af 105 BUN/Creatinine Ratio 22.0 H Glucose 100 Calcium 9.2 Urine Color Yellow Urine Clarity Cloudy Urine pH 6.0 Ur Specific [place] 1.015 Urine Protein Negative Urine Glucose (UA) Normal Urine Ketones Negative Urine Occult Blood 25 H Urine Nitrite Negative Urine Bilirubin Negative Urine Urobilinogen Normal Ur Leukocyte Esterase 25 H Discharge Plan Triage Chief Complaint: Abd Pain ED Provider: Sukumar Jacobo Dx/Rx/DC Orders Clinical Impression: Right lower quadrant abdominal pain, Left lower quadrant abdominal pain, Hx of Crohn's disease Instructions: Abdominal Pain Prescriptions: No Action alprazolam 1 mg tablet 1 mg PO TID PRN (Reason: Anxiety) RF: 0 promethazine 12.5 mg tablet 12.5 mg PO PRN PRN (Reason: Nausea) RF: 0 citalopram 20 mg tablet 20 mg PO DAILY RF: 0 pantoprazole 40 mg tablet,delayed release (DR/EC) 40 mg PO DAILY RF: 0 cetirizine [Zyrtec] 5 mg Tablet 5 mg PO DAILY RF: 0 Primary Care Provider: Azael Lr Referrals: Azael Lr MD [Primary Care Provider] - As Needed (Patient was seen in the emergency department. Concern for deception. For your information and a care plan will be generated regarding use of opiate analgesics. Patient requested Dilpiotrid.) Disposition Disposition: Home, Self Care Discharge Date/Time: 11/22/21 22:54
== END 2021-11-22 22:54 | disposition home or self-care (01) ==
PROVIDERS: Emergency Provider Emergency Medicine; PCP Family Medicine; Visit Provider Emergency Medicine
DX: R10.32 Left lower quadrant pain (principal); K50.90 Crohn's disease, unspecified, without complications; R10.31 Right lower quadrant pain; F32.A Depression, unspecified; F41.9 Anxiety disorder, unspecified; Z79.899 Other long term (current) drug therapy; Z87.891 Personal history of nicotine dependence
CPT/HCPCS: 80048; 81002; 85025; 96361; 96374; 99281; 99282; J7030; A4216; J2405

== ENCOUNTER 2022-03-27 19:55 | Emergency (ER) | payer OTHER, SELFPAY ==
[2022-03-27 19:56] VITALS: BP 126/64; PULSE 76; RESP 16; TEMP 35.7; O2SAT 99; BMI 24.9
[2022-03-27 19:59] VITALS: BP 126/64; PULSE 76; RESP 16; TEMP 35.7; O2SAT 99
[2022-03-27] MEDS: Ondansetron 4 MG/2 ML Vial IV (20:55)
[2022-03-27] MEDS: HYDROmorphone 1 MG/ML Syringe IV (20:55)
[2022-03-27] MEDS: 0.9% Normal Saline 1,000 ML 1000 ML IV (20:55)
[2022-03-27 21:08] LABS: Absolute Lymphocyte Count 4.45 X10^3/uL (0.83-4.51); Basophil# 0.08 X10^3/uL; Basophil% 0.9 % (0-1); Eosinophil# 0.19 X10^3/uL; Hematocrit 41.7 % (37-47); Hemoglobin 14.2 g/dL (12.0-15.0); Lymphocyte # 4.45 X10^3/ul (0.83-4.51); Lymphocyte % 47.7 % (19-41); Mean Corp Hgb Conc 34.1 g/dL (32-36); Mean Corpuscular Volume 88.2 fL (81-99); Monocyte# 0.63 X10^3/uL; Monocyte% 6.8 % (0-10); NRBC Flagged by Analyzer 0 % (0-5); Neutrophil # 3.95 X10^3/uL (2.7-7.7); Neutrophil % 42.4 % (47-70); Platelet Count 407 K/mm3 (150-450); RBC Distribution Width CV 13.2 % (11.6-14.6); RBC Distribution Width SD 42.9 fl (35.1-43.9); Red Blood Count 4.73 M/mm3 (4.2-5.4); White Blood Count 9.3 K/mm3 (4.4-11.0)
[2022-03-27 21:36] LABS: Internal QC Validated? YES +Cl - CLEAR BKGD; Pregnancy, Serum, hCG Quali. NEGATIVE Negative
[2022-03-27 21:47] LABS: ALB/GLOB Ratio 1.4 RATIO (0.9-2.4); AST(SGOT) 10 U/L (15-37); Alanine Aminotransfer ALT/SGPT 11 U/L (13-56); Albumin, Serum 4.1 g/dL (3.2-5.0); Alkaline Phosphatase 49 U/L (45-117); Anion Gap 4 (5-15); BUN 13 mg/dL (7-18); BUN/Creat Ratio 19.7 RATIO (10-20); Calcium,Total 9.6 mg/dL (8.5-10.1); Chloride 110 mmol/L (98-107); Creatinine, Serum 0.66 mg/dL (0.55-1.02); EST Glomerular Filtration Rate 109 mL/min (>60); Est Glom Filt Rate - Afr Amer 132 mL/min (>60); Estimated Creatinine Clearance 103.71 ml/min; Glucose 90 mg/dL (74-106); Lipase 143 U/L (73-393); Potassium 3.6 mmol/L (3.5-5.1); Protein, Total 7.1 g/dL (6.4-8.2); Sodium Level 139 mmol/L (136-145)
--- NOTE | 2022-03-27 22:01 | EX.ED.DYSGE1 ---
HPI History of Present Illness Chief Complaint: Abd Pain Informant: patient Narrative Narrative: 36-year-old female with a history of Crohn's disease currently follows with gastroenterology in [place] but is looking to make the switch to here in [place] presenting with exacerbation of Crohn's disease. Patient notes this been going on for several days. She notes vomiting and diarrhea blood in the stool. She notes a headache. She states the pain today was unbearable so she wanted to come in to be seen. She is not currently on any maintenance medicines for Crohn's as she is tried multiple things but has not had success. Last colonoscopy was in September. She states that she will typically take first dose prednisone when she has a flare. [facility] Medical History Abdominal pain Anxiety Colitis Crohns disease Depression Stephanie Tobar infection Nausea Sleep apnea Home Medications alprazolam 1 mg tablet 1 mg PO TID PRN Anxiety 07/12/21 [History Last Taken Unknown] citalopram 20 mg tablet 30 mg PO DAILY 07/12/21 [History Last Taken Unknown] promethazine 12.5 mg tablet 12.5 mg PO PRN PRN Nausea 07/12/21 [History Last Taken Unknown] cetirizine 5 mg tablet 5 mg PO DAILY 11/22/21 [History Last Taken Unknown] ondansetron 4 mg disintegrating tablet 4 mg PO Q6H PRN PRN Nausea #15 tabs 03/27/22 [Rx Last Taken Unknown] oxycodone-acetaminophen 5 mg-325 mg tablet 1 tab PO Q6H PRN PRN pain 5 days #20 TABLETS 03/27/22 [Rx Last Taken Unknown] prednisone 20 mg tablet 60 mg PO DAILY #15 TABLETS 03/27/22 [Rx Last Taken Unknown] Allergy/AdvReac Type Severity Reaction Status Date / Time morphine AdvReac Mild increased Verified 11/22/21 20:13 HR metoclopramide [From Reglan] AdvReac Other Verified 03/27/22 20:00 NECTARINES AdvReac Angioedema Uncoded 11/22/21 20:13 Family History Mother Heart disease Pacemaker Grandfather Diabetes Grandmother Diabetes Surgical History History of colonoscopy (~2017) History of colonoscopy (~2017) History of esophagogastroduodenoscopy (EGD) (~2018) History of wisdom tooth extraction Social History household members: spouse Smoking Status: Former smoker alcohol intake: never substance use type: does not use caffeine: Yes what type of physical activity do you participate in: walking seatbelt use: always do you feel safe at home: Yes additional social history: [employer] EXAM Physical Exam Const Vital Signs: 03/27/22 19:56 03/27/22 19:59 Temperature 96.3 F L 96.3 F L Temperature Source Temporal Temporal Pulse Rate 76 76 Respiratory Rate 16 16 Blood Pressure 126/64 H 126/64 H Blood Pressure Mean 84 Pulse Ox 99 99 Oxygen Delivery Method Room Air Room Air Positive well nourished and well developed General Appearance ED: well developed HEENT Reports normocephalic, head/scalp atraumatic and moist mucous membranes Eyes PERRL and EOMs intact bilaterally Neck no lymphadenopathy, supple and no JVD Resp normal respiratory effort and clear to auscultation bilaterally Cardio regular rate, regular rhythm and no murmurs GI non-distended; Negative for hepatosplenomegaly GI Narrative: Diffuse tenderness to palpation Inspection: Negative for abdominal distention Auscultation: normoactive bowel sounds Palpation: soft Back/Spine no CVA tenderness and normal ROM Extremity normal to inspection General Extremety ED: Negative for edema General Extremity: Negative for edema Neuro oriented x3 and CN's II-XII intact bilaterally Sensorium / Orientation: alert Motor Exam: strength 5/5 throughout Psych mental status grossly normal Mood & Affect: Negative for depressed or tearful Skin no rashes or lesions noted and no wounds MDM MDM MDM Narrative Medical decision making narrative: Basic blood work was obtained. Serum test is negative. Patient received Dilaudid Zofran and IV fluids and feels significantly better. I will be given her a dose of Solu-Medrol write for her to have prednisone and pain medication at home. At this point I do not think a CT scan is going to be of benefit as she has had extensive CT scans in the past and this is atypical exacerbation of her Crohn's disease for her. Lab Data Attestation: I reviewed the patient's lab results. Labs: Laboratory Results - last 24 hr 03/27/22 03/27/22 03/27/22 20:30 20:30 20:30 WBC 9.3 RBC 4.73 Hgb 14.2 Hct 41.7 MCV 88.2 MCH 30.0 MCHC 34.1 RDW Std Deviation 42.9 RDW Coeff of Dimitrios 13.2 Plt Count 407 MPV 10.0 Immature Gran % (Auto) 0.200 Neut % (Auto) 42.4 L Lymph % (Auto) 47.7 H [place] % (Auto) 6.8 Eos % (Auto) 2.0 Baso % (Auto) 0.9 Absolute Neuts (auto) 4.0 Absolute Lymphs (auto) 4.45 Nucleated RBC % 0 Sodium 139 Potassium 3.6 Chloride 110 H Carbon Dioxide 25.0 Anion Gap 4 L BUN 13 Creatinine 0.66 Estim Creat Clear Calc 103.71 Est GFR (MDRD) Af Amer 132 Est GFR (MDRD) Non-Af 109 BUN/Creatinine Ratio 19.7 Glucose 90 Calcium 9.6 Total Bilirubin 0.30 AST 10 L ALT 11 L Alkaline Phosphatase 49 Total Protein 7.1 Albumin 4.1 Globulin 3.0 Albumin/Globulin Ratio 1.4 Lipase 143 Serum , Qual NEGATIVE Discharge Plan Triage Chief Complaint: Abd Pain Other Complaint: Nausea/Vomiting/Diarrhea ED Provider: Dylan Mujica Dx/Rx/DC Orders Clinical Impression: Vomiting and diarrhea, Exacerbation of Crohn's disease Instructions: ED Crohn's Disease Prescriptions: New prednisone 20 MG tablet 60 mg PO DAILY Qty: 15 0RF oxycodone-acetaminophen [oxycodone-acetaminophen] 1 TABLET tablet 1 tab PO Q6H PRN PRN (Reason: pain) 5 Days Qty: 20 0RF ondansetron [ondansetron] 4 MG tablet 4 mg PO Q6H PRN PRN (Reason: Nausea) Qty: 15 0RF No Action alprazolam 1 mg tablet 1 mg PO TID PRN (Reason: Anxiety) Label Comments: TAKE 1 TABLET BY MOUTH THREE TIMES DAILY NEEDED promethazine 12.5 mg tablet 12.5 mg PO PRN PRN (Reason: Nausea) Label Comments: Take 1 tablet by mouth every 6 hours as needed. citalopram 20 mg tablet 30 mg PO DAILY Label Comments: TAKE 1 & 1/2 (ONE AND ONE-HALF) TABLETS BY MOUTH ONCE DAILY cetirizine [Zyrtec] 5 mg Tablet 5 mg PO DAILY Primary Care Provider: Azael Lr Referrals: Azael Lr MD [Primary Care Provider] - As Needed Disposition Disposition: Home, Self Care
[2022-03-27] MEDS: MethylPREDNISolone 125 MG/2 ML Vial IV (22:08)
[2022-03-27] MEDS: HYDROmorphone 0.5 MG/0.5 ML SYRINGE IV (22:08)
[2022-03-27 22:16] VITALS: BP 124/69; PULSE 72; RESP 15; O2SAT 96
== END 2022-03-27 22:17 | disposition home or self-care (01) ==
PROVIDERS: Emergency Provider Emergency Medicine; PCP Family Medicine; Visit Provider Emergency Medicine
DX: K50.90 Crohn's disease, unspecified, without complications (principal); R11.2 Nausea with vomiting, unspecified; F32.A Depression, unspecified; F41.9 Anxiety disorder, unspecified; Z79.899 Other long term (current) drug therapy; Z79.52 Long term (current) use of systemic steroids; Z87.891 Personal history of nicotine dependence
CPT/HCPCS: 80053; 83690; 84703; 85025; 96361; 96374; 96375; 96376; 99283; J7030; A4216; J2405

== ENCOUNTER 2022-04-19 13:11 | Emergency (ER) | payer OTHER, SELFPAY ==
[2022-04-19 13:12] VITALS: BP 123/78; PULSE 89; RESP 14; TEMP 36.4; O2SAT 99; BMI 25.3
--- NOTE | 2022-04-19 13:32 | ED.VIS.FEGU ---
HPI HPI - Female History of Present Illness Chief Complaint: Vag Bleeding Detail of Chief Complaint: Vaginal bleeding since yesterday Informant: patient Narrative Narrative: Patient presents to the emergency department complaint vaginal bleeding that started yesterday. Patient states that she has been going through a pad an hour since yesterday. Patient passing clots and filling up the toilet bowl. Patient complains of feeling lightheaded and dizzy. Patient has taken 3 test at home and has been negative. Patient also has history of Crohn's disease. Patient called her WAXING MACHINE OPERATOR HELPER and was told to come to the ER because they could not get her in in a timely manner. PFSH PFS Medical History Abdominal pain Anxiety Colitis Crohns disease Depression Stephanie Tobar infection Nausea Sleep apnea Home Medications alprazolam 1 mg tablet 1 mg PO TID PRN Anxiety 07/12/21 [History Last Taken Unknown] citalopram 20 mg tablet 30 mg PO DAILY 07/12/21 [History Last Taken Unknown] promethazine 12.5 mg tablet 12.5 mg PO PRN PRN Nausea 07/12/21 [History Last Taken Unknown] cetirizine 5 mg tablet 5 mg PO DAILY 11/22/21 [History Last Taken Unknown] ondansetron 4 mg disintegrating tablet 4 mg PO Q6H PRN PRN Nausea #15 tabs 03/27/22 [Rx Last Taken Unknown] oxycodone-acetaminophen 5 mg-325 mg tablet 1 tab PO Q6H PRN PRN pain 5 days #20 TABLETS 03/27/22 [Rx Last Taken Unknown] prednisone 20 mg tablet 60 mg PO DAILY #15 TABLETS 03/27/22 [Rx Last Taken Unknown] norethindrone acetate 5 mg tablet (Aygestin) 5 mg PO DAILY #30 tabs 04/19/22 [Rx Last Taken Unknown] Allergy/AdvReac Type Severity Reaction Status Date / Time nectarine Allergy Angioedema Verified 04/19/22 13:12 morphine AdvReac Mild increased Verified 04/19/22 13:12 HR metoclopramide [From Reglan] AdvReac Other Verified 04/19/22 13:12 Family History Mother Heart disease Pacemaker Grandfather Diabetes Grandmother Diabetes Surgical History History of colonoscopy (~2017) History of colonoscopy (~2017) History of esophagogastroduodenoscopy (EGD) (~2018) History of wisdom tooth extraction Social History household members: spouse Smoking Status: Former smoker alcohol intake: never substance use type: does not use caffeine: Yes what type of physical activity do you participate in: walking seatbelt use: always do you feel safe at home: Yes additional social history: [employer] ROS ROS ED Review of Systems ROS Unobtainable: other Constitutional Constitutional ED: Reports lethargy; Denies chills, fever(s), sweats or weight loss Eyes Eyes: Denies blurry vision, change in vision or diplopia ENT ENT ED: Denies rhinorrhea or sore throat Cardiovascular Cardiovascular: Reports chest pain and racing heartbeat; Denies orthopnea Respiratory/Chest Respiratory/Chest: Reports dyspnea and dyspnea on exertion; Denies cough, orthopnea or sputum Gastrointestinal Gastrointestinal: Denies abdominal pain, diarrhea, nausea or vomiting Genitourinary Genitourinary ED: Reports other Details: Vaginal bleeding ; Denies dysuria, hematuria or urinary frequency Musculoskeletal Musculoskeletal: Denies arthralgias, back pain, myalgias or neck pain Integumentary Denies abscess, Abrasions or rash Neurologic Neurologic: Denies headache(s) or weakness Psychiatric Psychiatric: Denies anxiety, depression or suicidal thoughts Endocrine Endocrinology: Denies polydipsia, polyphagia or polyuria Hematologic/Lymphatic Hematologic/Lymphatic: Denies easy bleeding, easy bruising or lymphadenopathy Allergic/Immunologic Allergic/Immunologic ED: Denies mouth swelling, tongue swelling or urticaria EXAM Physical Exam Const Vital Signs: 04/19/22 13:12 04/19/22 14:09 Temperature 97.5 F L Temperature Source Temporal Pulse Rate 89 Pulse Rate [Lying] 81 Pulse Rate [Sitting (for 1 minute prior to obtaining)] 78 Pulse Rate [Standing (for 1 minute prior to obtaining)] 82 Respiratory Rate 14 Blood Pressure 123/78 H Blood Pressure [Lying] 106/55 L Blood Pressure [Sitting (for 1 minute prior to obtaining)] 120/67 Blood Pressure [Standing (for 1 minute prior to obtaining)] 128/73 H Blood Pressure Mean 93 Blood Pressure Mean [Lying] 72 Blood Pressure Mean [Sitting (for 1 minute prior to obtaining)] 84 Blood Pressure Mean [Standing (for 1 minute prior to obtaining)] 91 Pulse Ox 99 Oxygen Delivery Method Room Air Positive well nourished and well developed General Appearance ED: well developed and NAD HEENT Reports TM's clear and moist mucous membranes normocephalic and atraumatic; Negative for trauma or tenderness Tympanic Membrane ED: Yes TM's clear Eyes PERRL and EOMs intact bilaterally General Eye ED: Negative for pale conjunctiva or scleral icterus Neck no lymphadenopathy, supple and no JVD General: Negative for tenderness Chest Wall inspection of chest normal and palpation of chest normal Chest: Negative for tenderness Resp normal respiratory effort and clear to auscultation bilaterally Effort and Inspection: Negative for respiratory distress or pain with movement Auscultation: Negative for rhonchi, wheezes or diminished lung sounds Cardio regular rate, regular rhythm, S1 normal heart sound, S2 normal heart sound and no murmurs Peripheral Pulses: pulses 2+ throughout GI normal to inspection, nondistended, normoactive bowel sounds, soft to palpation, non-tender, non-distended and no masses Back/Spine no CVA tenderness and no thoracic nor lumbar tenderness Extremity normal to inspection General Extremety ED: Negative for edema General Extremity: Negative for edema Neuro oriented x3, CN's II-XII intact bilaterally, no sensory deficits noted and gait normal Sensorium / Orientation: awake, alert, oriented to person, oriented to place and oriented to time Motor Exam: strength 5/5 throughout and strength abnormal Psych mental status grossly normal Skin no rashes or lesions noted and no wounds MDM MDM MDM Narrative Medical decision making narrative: IV line established on arrival. Patient did have slight elevated white count 13.9 with a hemoglobin 13.6. hCG was negative. Patient had orthostatic vital signs that were negative. I did perform a pelvic exam and she had small amount of blood within the vaginal vault with no clots noted. No adnexal masses noted. I did discuss case with patient's WAXING MACHINE OPERATOR HELPER of record who recommended that we start patient on Aygestin 5 mg twice a day for 3 days followed by 5 mg daily until bleeding stops. Patient to follow-up with their office. I was asked to obtain a pelvic ultrasound prior to patient discharge and as long as this is unremarkable patient will be discharged to home with diagnosis of dysfunctional uterine bleeding. Patient advised to return if persistent heavy bleeding or condition should worsen anyway. Lab Data Attestation: I reviewed the patient's lab results. Labs: Laboratory Results - last 24 hr 04/19/22 04/19/22 13:55 13:55 WBC 13.9 H RBC 4.47 Hgb 13.6 Hct 39.5 MCV 88.4 MCH 30.4 MCHC 34.4 RDW Std Deviation 43.8 RDW Coeff of Dimitrios 13.5 Plt Count 391 MPV 9.9 Immature Gran % (Auto) 0.300 Neut % (Auto) 64.6 Lymph % (Auto) 27.4 [place] % (Auto) 5.3 Eos % (Auto) 1.7 Baso % (Auto) 0.7 Absolute Neuts (auto) 9.0 H Absolute Lymphs (auto) 3.81 Nucleated RBC % 0 Serum , Qual NEGATIVE Discharge Plan Triage Chief Complaint: Vag Bleeding ED Provider: Sera Bob Dx/Rx/DC Orders Clinical Impression: Dysfunctional uterine bleeding Instructions: ED Dysfunctional Uterine Bleeding Prescriptions: New norethindrone acetate [Aygestin] 5 mg tablet 5 mg PO DAILY Qty: 30 0RF Rx Instructions: 5mg bid for 3 days then 5mg daily until bleeding stops No Action alprazolam 1 mg tablet 1 mg PO TID PRN (Reason: Anxiety) Label Comments: TAKE 1 TABLET BY MOUTH THREE TIMES DAILY NEEDED promethazine 12.5 mg tablet 12.5 mg PO PRN PRN (Reason: Nausea) Label Comments: Take 1 tablet by mouth every 6 hours as needed. citalopram 20 mg tablet 30 mg PO DAILY Label Comments: TAKE 1 & 1/2 (ONE AND ONE-HALF) TABLETS BY MOUTH ONCE DAILY cetirizine [Zyrtec] 5 mg Tablet 5 mg PO DAILY prednisone 20 MG tablet 60 mg PO DAILY Qty: 15 0RF oxycodone-acetaminophen [oxycodone-acetaminophen] 1 TABLET tablet 1 tab PO Q6H PRN PRN (Reason: pain) 5 Days Qty: 20 0RF ondansetron [ondansetron] 4 MG tablet 4 mg PO Q6H PRN PRN (Reason: Nausea) Qty: 15 0RF Primary Care Provider: Azael Lr Referrals: Azael Lr MD [Primary Care Provider] - Adrianna Mota MD [Med Staff - Active Staff] - 5-7 Days Disposition Disposition: Home, Self Care
[2022-04-19] MEDS: 0.9% Normal Saline 1,000 ML 1000 ML IV (13:56)
[2022-04-19] MEDS: Ondansetron 4 MG/2 ML Vial IV ×2 (14:05→16:32)
[2022-04-19] MEDS: Morphine 4 MG/ML Syringe IV ×2 (14:06→16:32)
[2022-04-19 14:09] VITALS: BP 106/55; BP 120/67; BP 128/73; PULSE 78; PULSE 81; PULSE 82
[2022-04-19 14:11] LABS: Absolute Lymphocyte Count 3.81 X10^3/uL (0.83-4.51); Basophil% 0.7 % (0-1); Eosinophil# 0.23 X10^3/uL; Eosinophils% 1.7 % (0-5); Hematocrit 39.5 % (37-47); Hemoglobin 13.6 g/dL (12.0-15.0); Lymphocyte # 3.81 X10^3/ul (0.83-4.51); Lymphocyte % 27.4 % (19-41); Mean Corp Hgb Conc 34.4 g/dL (32-36); Mean Corpuscular Hgb 30.4 pg (27.0-32.0); Mean Corpuscular Volume 88.4 fL (81-99); Mean Platelet Vol. 9.9 fl (6.2-12.0); Monocyte# 0.74 X10^3/uL; Monocyte% 5.3 % (0-10); NRBC Flagged by Analyzer 0 % (0-5); Neutrophil # 8.99 X10^3/uL (2.7-7.7); Neutrophil % 64.6 % (47-70); Platelet Count 391 K/mm3 (150-450); RBC Distribution Width CV 13.5 % (11.6-14.6); RBC Distribution Width SD 43.8 fl (35.1-43.9); Red Blood Count 4.47 M/mm3 (4.2-5.4); White Blood Count 13.9 K/mm3 (4.4-11.0)
[2022-04-19 14:23] LABS: Internal QC Validated? YES +Cl - CLEAR BKGD; Pregnancy, Serum, hCG Quali. NEGATIVE Negative
--- NOTE | 2022-04-19 15:00 | US_ITS ---
STUDY: ULTRASOUND OF THE FEMALE PELVIS - COMPLETE REASON FOR EXAM: Female, 36 years old. vaginal bleeding LMP: 04/18/2022 TECHNIQUE: Transabdominal TECHNICAL QUALITY: Adequate. COMPARISON: None. FINDINGS: The uterus is anteverted and is in a midline position. The uterus measures 7.4 x 7.7 x 4.8 cm. Normal uterine cervix. The endometrium measures 9 mm in thickness, and is hyperechoic. There is no demonstrated endometrial mass. There is no demonstrated myometrial mass. I.U.D. - The patient does not have an I.U.D. The right ovary is visualized. The right ovary measures 2.8 x 1.9 x 2.3 cm. There is no right ovarian cyst or ovarian mass. There is no visualized right adnexal mass or complex lesion. There is normal arterial and normal venous vascularity. The left ovary is visualized. The left ovary measures 3.8 x 3.2 x 3.2 cm. 3.5 cm simple cyst (O-RADS category 2) of the left ovary. There is no visualized left adnexal mass or complex lesion. There is normal arterial and normal venous vascularity. There is no fluid in the cul-de-sac. The pre void volume of the bladder was ml. The post void volume of the bladder was ml. Polycystic ovary disease: No. US/Pelvic (Non ) IMPRESSION: 3.5 cm simple cyst of the left ovary. Electronically Signed: Kelechi Carrasco MD at 16:36 EDT ,
== END 2022-04-19 17:15 | disposition home or self-care (01) ==
PROVIDERS: Emergency Provider Emergency Medicine; PCP Family Medicine; Visit Provider Emergency Medicine
DX: N93.8 Other specified abnormal uterine and vaginal bleeding (principal); K50.90 Crohn's disease, unspecified, without complications; F41.9 Anxiety disorder, unspecified; F32.A Depression, unspecified; Z87.891 Personal history of nicotine dependence; Z79.899 Other long term (current) drug therapy
CPT/HCPCS: 76856; 84703; 85025; 99284; J7030; A4216; J2405

== ENCOUNTER 2022-05-16 17:44 | Emergency (ER) | payer OTHER, SELFPAY ==
[2022-05-16 17:45] VITALS: BP 119/60; PULSE 84; RESP 17; TEMP 36.3; O2SAT 99; BMI 25.5
--- NOTE | 2022-05-16 19:14 | CT_ITS ---
STUDY: CT ABDOMEN AND PELVIS WITH CONTRAST REASON FOR EXAM: Female, 36 years old. ABDOMINAL PAIN RADIATION DOSAGE (If Supplied By Facility): CTDIvol = ( 12.33 ) mGy, DLP = ( 707.49 ) mGycm TECHNIQUE: Transaxial 3.75 mm images were obtained from the dome of the diaphragm to the symphysis pubis without oral contrast. IV 100mL Isovue-300 was administered. Sagittal and coronal images were reconstructed. Individualized dose optimization techniques were used for this CT. COMPARISON: CT abdomen pelvis 04/08/2021. 01/10/2020 FINDINGS: The visualized lung bases are unremarkable. The visualized portions of the heart are within normal limits. Normal liver. Normal gallbladder and extrahepatic biliary system. Normal spleen. Normal pancreas. Normal bilateral adrenal glands. Normal right kidney. Normal left kidney. Normal visualized stomach. Normal small intestine. Mild wall prominence of the sigmoid colon, no pericolonic fat stranding. There are few sigmoid colonic diverticula consistent with diverticulosis. The appendix is visualized and appears normal. Normal abdominal aorta. Normal inferior vena cava. Normal retroperitoneum. Normal urinary bladder. Heterogeneous enhancement of the uterus. There is low attenuation of the ovaries most frequently due to follicular cysts. Largest in the left ovary measures 2.6 x 2.2 x 2.1 cm. Normal abdominal wall. Normal osseous structures. CT/Abdomen/Pelvis W IV Cont ONLY IMPRESSION: Mild wall thickening of the sigmoid colon, occasional diverticula without evidence of diverticulitis. Mild colitis possible, similar in appearance 01/10/2020. Left ovarian follicles/cysts. Heterogeneous enhancement of the uterus, possible small underlying fibroids. There is no appendicitis, ascites, hydronephrosis, abscess, collection, perforation or obstruction. Electronically Signed: Eulalia Russell MD at 20:16 EDT Reading Location ID and State: , Service support ,
--- NOTE | 2022-05-16 19:15 | EDS_ITS ---
HPI HPI - GI History of Present Illness Chief Complaint: Abd Pain Narrative Narrative: 36-year-old female presenting with abdominal pain. She states it is all over her abdomen but is worse on the right side in the upper and lower. She states she has had some diarrhea today. She think she had a small amount of blood in the diarrhea. She is also been vomiting. Patient states onset of her symptoms were about 330 a.m. today the pain has been persistent and increasing. Patient states she has a history of Crohn's disease and ovarian cyst. She is scheduled for an outpatient follow-up appointment for her ovarian cysts and an ultrasound. She has seen Dr. Evans for her Crohn's disease in [place] previously. Apparently he is moved to a different facility. She states that she is having trouble getting follow-up with the other members of his group. Patient has not had a fever. She states it does burn a little bit when she urinates and she that she might be dehydrated. States has not had any bowel surgery as result of her Crohn's disease. [facility] Medical History Anxiety Colitis Crohns disease Depression Stephanie Tobar infection Gestational diabetes Left ovarian cyst Sleep apnea Home Medications alprazolam 1 mg tablet 1 mg PO TID PRN Anxiety 07/12/21 [History Last Taken Unknown] citalopram 20 mg tablet 30 mg PO DAILY 07/12/21 [History Last Taken Unknown] promethazine 12.5 mg tablet 12.5 mg PO PRN PRN Nausea 07/12/21 [History Last Taken Unknown] cetirizine 5 mg tablet 5 mg PO DAILY 11/22/21 [History Last Taken Unknown] ondansetron 4 mg disintegrating tablet 4 mg PO Q6H PRN PRN Nausea #15 tabs 03/27/22 [Rx Last Taken Unknown] lactobacillus combination no.4 3 billion cell capsule (Probiotic) 3,000 mmu cells PO DAILY 04/25/22 [History Last Taken Unknown] norethindrone acetate 5 mg tablet (Aygestin) 5 mg PO BID #20 tabs 04/25/22 [Rx Last Taken Unknown] naproxen 500 mg tablet 500 mg PO Q12H #30 tabs 04/26/22 [Rx Last Taken Unknown] prednisone 50 mg tablet 50 mg PO DAILY #5 tabs 05/16/22 [Rx Last Taken Unknown] Allergy/AdvReac Type Severity Reaction Status Date / Time nectarine Allergy Angioedema Verified 05/16/22 17:44 morphine AdvReac Mild increased Verified 05/16/22 17:44 HR metoclopramide [From Reglan] AdvReac Other Verified 05/16/22 17:44 Family History Mother Heart disease Pacemaker Grandfather Diabetes Grandmother Diabetes Surgical History History of colonoscopy (~2017) History of colonoscopy (~2017) History of esophagogastroduodenoscopy (EGD) (~2018) History of wisdom tooth extraction Social History household members: spouse Smoking Status: Former smoker alcohol intake: never substance use type: does not use caffeine: Yes what type of physical activity do you participate in: walking seatbelt use: always do you feel safe at home: Yes additional social history: [employer] ROS ROS ED Constitutional Constitutional ED: Denies chills or fever(s) ENT ENT ED: Denies rhinorrhea or sore throat Cardiovascular Cardiovascular: Denies chest pain or palpitations Respiratory/Chest Respiratory/Chest: Denies cough or dyspnea Gastrointestinal Gastrointestinal: Reports abdominal pain, diarrhea, nausea and vomiting Genitourinary Genitourinary ED: Reports dysuria; Denies hematuria Musculoskeletal Musculoskeletal: Denies arthralgias Integumentary Denies abscess or Abrasions Neurologic Neurologic: Denies headache(s) or paresthesias Psychiatric Psychiatric: Denies anxiety or depression EXAM Physical Exam Const Vital Signs: 05/16/22 17:45 05/16/22 20:16 Temperature 97.3 F L Temperature Source Temporal Pulse Rate 84 Respiratory Rate 17 17 Blood Pressure 119/60 Blood Pressure Mean 79 Pulse Ox 99 Oxygen Delivery Method Room Air Room Air Positive well nourished General Appearance ED: Negative for pallor HEENT Reports TM's clear and moist mucous membranes Tympanic Membrane ED: Yes TM's clear Eyes PERRL and EOMs intact bilaterally General Eye ED: Negative for pale conjunctiva or scleral icterus Neck no lymphadenopathy Resp normal respiratory effort and clear to auscultation bilaterally Effort and Inspection: respiratory distress Auscultation: Negative for rales, rhonchi or wheezes Cardio regular rate and regular rhythm GI GI Narrative: Diffuse tender to palpation. This is most in the right upper and right lower quadrants. She has bilateral CVA tenderness peer Palpation: soft Neuro CN's II-XII intact bilaterally Sensorium / Orientation: alert Motor Exam: strength 5/5 throughout Psych mental status grossly normal Mood & Affect: anxious and tearful Skin no wounds General Skin Exam: Negative for jaundice or pallor MDM MDM MDM Narrative Medical decision making narrative: Presenting with diffuse abdominal pain which is worse on the right side. She is a history of Crohn's disease. This started about 3:30 AM this morning. Patient has not had any fevers but does complain of nausea and vomiting. She also complains of diarrhea. Patient medicated with 1 mg of Dilaudid and Zofran. CBC does not show leukocytosis and her white blood cell count is 9.8. Hemoglobin hematocrit are stable. Platelets normal. Renal function electrolytes within normal limits. LFTs are normal. Serum hCG negative. Urinalysis negative for infection. I obtained a CT of the abdomen pelvis with IV contrast which a stable exam. He does not appear to be any significant interval change. Patient was treated for Crohn's flare last time she had a CT scan finding. She states that usually a burst of prednisone for 5 days will help. She request a dose of Dilaudid before she leaves. This was provided. She was also given a dose of IV steroids. Patient given referral to Dr. Alva. Patient stable for discharge. Impression: 1. Abdominal pain 2. Nausea/vomiting 3. Diarrhea 4. Crohn's Lab Data Attestation: I reviewed the patient's lab results. Labs: Laboratory Results - last 24 hr 05/16/22 05/16/22 05/16/22 18:00 18:00 18:00 WBC 9.8 RBC 4.56 Hgb 13.5 Hct 40.9 MCV 89.7 MCH 29.6 MCHC 33.0 RDW Std Deviation 44.3 H RDW Coeff of Dimitrios 13.4 Plt Count 434 MPV 10.5 Immature Gran % (Auto) 0.500 Neut % (Auto) 49.6 Lymph % (Auto) 39.1 Borden % (Auto) 6.7 Eos % (Auto) 3.2 Baso % (Auto) 0.9 Absolute Neuts (auto) 4.8 Absolute Lymphs (auto) 3.82 Nucleated RBC % 0 Sodium 140 Potassium 3.5 Chloride 109 H Carbon Dioxide 24.0 Anion Gap 7 BUN 15 Creatinine 0.60 Estim Creat Clear Calc 114.08 Est GFR (MDRD) Af Amer 146 Est GFR (MDRD) Non-Af 121 BUN/Creatinine Ratio 24.9 H Glucose 94 Calcium 9.0 Total Bilirubin 0.30 AST 8 L ALT 12 L Alkaline Phosphatase 52 Total Protein 7.0 Albumin 4.0 Globulin 3.0 Albumin/Globulin Ratio 1.3 Lipase 170 Serum , Qual NEGATIVE Urine Color Urine Clarity Urine pH Ur Specific [place] Urine Protein Urine Glucose (UA) Urine Ketones Urine Occult Blood Urine Nitrite Urine Bilirubin Urine Urobilinogen Ur Leukocyte Esterase Urine RBC Urine WBC Ur Squamous Epith Cells Urine Bacteria Urine Mucus 05/16/22 19:22 WBC RBC Hgb Hct MCV MCH MCHC RDW Std Deviation RDW Coeff of Dimitrios Plt Count MPV Immature Gran % (Auto) Neut % (Auto) Lymph % (Auto) Borden % (Auto) Eos % (Auto) Baso % (Auto) Absolute Neuts (auto) Absolute Lymphs (auto) Nucleated RBC % Sodium Potassium Chloride Carbon Dioxide Anion Gap BUN Creatinine Estim Creat Clear Calc Est GFR (MDRD) Af Amer Est GFR (MDRD) Non-Af BUN/Creatinine Ratio Glucose Calcium Total Bilirubin AST ALT Alkaline Phosphatase Total Protein Albumin Globulin Albumin/Globulin Ratio Lipase Serum , Qual Urine Color Straw Urine Clarity Clear Urine pH 7.0 Ur Specific [place] 1.005 Urine Protein Negative Urine Glucose (UA) Normal Urine Ketones Negative Urine Occult Blood 25 H Urine Nitrite Negative Urine Bilirubin Negative Urine Urobilinogen Normal Ur Leukocyte Esterase Negative Urine RBC 0 SEEN Urine WBC 0 SEEN Ur Squamous Epith Cells 0-5 SEEN Urine Bacteria 1+ Urine Mucus 0 SEEN Radiography Diagnostic Testing: Clinical Impression(s) from Imaging Studies Abdomen/Pelvis CT 05/16/22 19:14 IMPRESSION: Mild wall thickening of the sigmoid colon, occasional diverticula without evidence of diverticulitis. Mild colitis possible, similar in appearance 01/10/2020. Left ovarian follicles/cysts. Heterogeneous enhancement of the uterus, possible small underlying fibroids. There is no appendicitis, ascites, hydronephrosis, abscess, collection, perforation or obstruction. Electronically Signed: Eulalia Russell MD at 20:16 EDT Reading Location ID and State: , Service support , Discharge Plan Triage Chief Complaint: Abd Pain ED Provider: Mazin Franco Dx/Rx/DC Orders Instructions: ED Abdominal Pain Unkn Cause Fem Prescriptions: New prednisone 50 mg tablet 50 mg PO DAILY Qty: 5 0RF No Action Probiotic 3 billion cell capsule 3,000 mmu cells PO DAILY Rx Instructions: administer with a meal norethindrone acetate [Aygestin] 5 mg tablet 5 mg PO BID Qty: 20 0RF alprazolam 1 mg tablet 1 mg PO TID PRN (Reason: Anxiety) Label Comments: TAKE 1 TABLET BY MOUTH THREE TIMES DAILY NEEDED promethazine 12.5 mg tablet 12.5 mg PO PRN PRN (Reason: Nausea) Label Comments: Take 1 tablet by mouth every 6 hours as needed. citalopram 20 mg tablet 30 mg PO DAILY Label Comments: TAKE 1 & 1/2 (ONE AND ONE-HALF) TABLETS BY MOUTH ONCE DAILY cetirizine [Zyrtec] 5 mg Tablet 5 mg PO DAILY ondansetron [ondansetron] 4 MG tablet 4 mg PO Q6H PRN PRN (Reason: Nausea) Qty: 15 0RF naproxen 500 mg tablet 500 mg PO Q12H Qty: 30 2RF Rx Instructions: administer with food or milk Primary Care Provider: Azael Lr Referrals: Azael Lr MD [Primary Care Provider] - Jeremiah Alva DO [Med Staff - Active Staff] - 3-5 Days Disposition Disposition: Home, Self Care
[2022-05-16] MEDS: 0.9% Normal Saline 1,000 ML 1000 ML IV (19:22)
[2022-05-16] MEDS: Ondansetron 4 MG/2 ML Vial IV (19:22)
[2022-05-16 19:26] LABS: Mucous, Urine 0 SEEN /hpf (<or=2+); Red Blood Cells-Urine 0 SEEN /hpf (0-5); White Blood Cells 0 SEEN /hpf (0-5)
[2022-05-16] MEDS: HYDROmorphone 1 MG/ML Syringe IV (19:27)
[2022-05-16 19:28] LABS: Absolute Lymphocyte Count 3.82 X10^3/uL (0.83-4.51); Absolute Neutrophil Count 4.8 X10^3/uL (2.0-7.7); Basophil# 0.09 X10^3/uL; Basophil% 0.9 % (0-1); Eosinophil# 0.31 X10^3/uL; Eosinophils% 3.2 % (0-5); Hematocrit 40.9 % (37-47); Hemoglobin 13.5 g/dL (12.0-15.0); Lymphocyte # 3.82 X10^3/ul (0.83-4.51); Lymphocyte % 39.1 % (19-41); Mean Corpuscular Hgb 29.6 pg (27.0-32.0); Mean Corpuscular Volume 89.7 fL (81-99); Mean Platelet Vol. 10.5 fl (6.2-12.0); Monocyte# 0.65 X10^3/uL; Monocyte% 6.7 % (0-10); NRBC Flagged by Analyzer 0 % (0-5); Neutrophil # 4.84 X10^3/uL (2.7-7.7); Neutrophil % 49.6 % (47-70); Platelet Count 434 K/mm3 (150-450); RBC Distribution Width CV 13.4 % (11.6-14.6); RBC Distribution Width SD 44.3 fl (35.1-43.9); Red Blood Count 4.56 M/mm3 (4.2-5.4); White Blood Count 9.8 K/mm3 (4.4-11.0)
[2022-05-16 19:33] LABS: Color, Urine Straw (Yellow); Glucose, Dipstick Normal (Normal); Ketone-Dipstick Negative (Negative); Leukocyte Esterase-Dipstick Negative /ul (Negative); Nitrite-Dipstick Negative (Negative); Occult Blood-Urine 25 /ul (Negative); Protein-Dipstick Negative (Negative); Specific Gravity, Urine 1.005 (1.002-1.030); Urine Bilirubin Dipstick Negative (Negative); Urine Clarity Clear (Clear); Urine Urobilinogen Normal (Normal)
[2022-05-16 19:40] LABS: Internal QC Validated? YES +Cl - CLEAR BKGD; Pregnancy, Serum, hCG Quali. NEGATIVE Negative
[2022-05-16 19:43] LABS: Bacteria 1+ /hpf (None Seen); Squamous Epithelial Cells - UA 0-5 SEEN /hpf (5-10)
[2022-05-16 19:48] LABS: ALB/GLOB Ratio 1.3 RATIO (0.9-2.4); AST(SGOT) 8 U/L (15-37); Alanine Aminotransfer ALT/SGPT 12 U/L (13-56); Alkaline Phosphatase 52 U/L (45-117); Anion Gap 7 (5-15); BUN 15 mg/dL (7-18); BUN/Creat Ratio 24.9 RATIO (10-20); Chloride 109 mmol/L (98-107); EST Glomerular Filtration Rate 121 mL/min (>60); Est Glom Filt Rate - Afr Amer 146 mL/min (>60); Estimated Creatinine Clearance 114.08 ml/min; Glucose 94 mg/dL (74-106); Lipase 170 U/L (73-393); Potassium 3.5 mmol/L (3.5-5.1); Sodium Level 140 mmol/L (136-145)
[2022-05-16 20:16] VITALS: RESP 17
[2022-05-16] MEDS: MethylPREDNISolone 125 MG/2 ML Vial IV (21:22)
[2022-05-16] MEDS: HYDROmorphone 0.5 MG/0.5 ML SYRINGE IV (21:22)
[2022-05-16 21:28] VITALS: BP 118/74; PULSE 70; RESP 17; O2SAT 98
== END 2022-05-16 21:31 | disposition home or self-care (01) ==
PROVIDERS: Emergency Provider Student in an Organized Health Care Education/Training Program; PCP Family Medicine; Visit Provider Student in an Organized Health Care Education/Training Program
DX: R10.9 Unspecified abdominal pain (principal); K50.90 Crohn's disease, unspecified, without complications; R11.2 Nausea with vomiting, unspecified; R19.7 Diarrhea, unspecified; N83.202 Unspecified ovarian cyst, left side; Z87.891 Personal history of nicotine dependence; Z79.52 Long term (current) use of systemic steroids
CPT/HCPCS: 74177; 80053; 81001; 83690; 84703; 85025; 96361; 96374; 96375; 96376; 99283; J7030; Q9967; A4216; J2405

== ENCOUNTER → 2022-05-18 | Outpatient (CLI) | payer OTHER, SELFPAY ==
--- NOTE | 2022-05-18 09:29 | US_ITS ---
STUDY: ULTRASOUND OF THE FEMALE PELVIS - COMPLETE REASON FOR EXAM: Female, 36 years old. Cyst OV -- DUB LMP: 04/07/2022. TECHNIQUE: Transabdominal and Transvaginal TECHNICAL QUALITY: Adequate. COMPARISON: Comparison is made with prior study 04/19/2022. FINDINGS: The uterus is anteverted and is in a midline position. The uterus measures 8.2 cm x 5.5 cm x 4.3 cm. Normal uterine cervix. The endometrium measures 9 mm in thickness, and is heterogeneous (striated). There is no demonstrated endometrial mass. There is no demonstrated myometrial mass. I.U.D. - The patient does not have an I.U.D. The right ovary is visualized. The right ovary measures 2.9 cm x 3.2 cm x 2 cm. There is a dominant follicle in the ovary measuring 1 cm x 1.4 cm x 0.5 cm. There is no visualized right adnexal mass or complex lesion. There is normal arterial and normal venous vascularity. The left ovary is visualized. The left ovary measures 4.2 cm x 3.7 cm x 2.3 cm. There is a complex cystic nodule in the left ovary measuring 2.3 cm x 2.3 cm x 2 cm. This may represent an hemorrhagic cyst. Follow-up is recommended. There is no visualized left adnexal mass or complex lesion. There is normal arterial and normal venous vascularity. There is minimal fluid in the cul-de-sac. US/Pelvic (Non ) IMPRESSION: Dominant follicle in the right ovary. 2.3 cm x 2.3 cm x 2 cm complex cyst in the left ovary. Follow-up is recommended. Electronically Signed: Leo Ruiz MD at 11:35 EDT ,
--- NOTE | 2022-05-18 09:29 | US_ITS ---
STUDY: ULTRASOUND OF THE FEMALE PELVIS - COMPLETE REASON FOR EXAM: Female, 36 years old. Cyst OV -- DUB LMP: 04/07/2022. TECHNIQUE: Transabdominal and Transvaginal TECHNICAL QUALITY: Adequate. COMPARISON: Comparison is made with prior study 04/19/2022. FINDINGS: The uterus is anteverted and is in a midline position. The uterus measures 8.2 cm x 5.5 cm x 4.3 cm. Normal uterine cervix. The endometrium measures 9 mm in thickness, and is heterogeneous (striated). There is no demonstrated endometrial mass. There is no demonstrated myometrial mass. I.U.D. - The patient does not have an I.U.D. The right ovary is visualized. The right ovary measures 2.9 cm x 3.2 cm x 2 cm. There is a dominant follicle in the ovary measuring 1 cm x 1.4 cm x 0.5 cm. There is no visualized right adnexal mass or complex lesion. There is normal arterial and normal venous vascularity. The left ovary is visualized. The left ovary measures 4.2 cm x 3.7 cm x 2.3 cm. There is a complex cystic nodule in the left ovary measuring 2.3 cm x 2.3 cm x 2 cm. This may represent an hemorrhagic cyst. Follow-up is recommended. There is no visualized left adnexal mass or complex lesion. There is normal arterial and normal venous vascularity. There is minimal fluid in the cul-de-sac. US/Transvaginal Non- IMPRESSION: Dominant follicle in the right ovary. 2.3 cm x 2.3 cm x 2 cm complex cyst in the left ovary. Follow-up is recommended. Electronically Signed: Leo Ruiz MD at 11:35 EDT ,
== END | disposition home or self-care (01) ==
LOC: US 09:28
PROVIDERS: PCP Family Medicine; Referring Provider Nurse Practitioner Women's Health; Visit Provider Nurse Practitioner Women's Health
DX: N83.202 Unspecified ovarian cyst, left side (principal); N93.8 Other specified abnormal uterine and vaginal bleeding
CPT/HCPCS: 76830; 76856

== ENCOUNTER 2022-08-08 16:29 | Emergency (ER) | payer OTHER, SELFPAY ==
[2022-08-08 16:30] VITALS: BP 98/70; PULSE 97; RESP 18; TEMP 36.6; O2SAT 99; BMI 26.2
[2022-08-08 17:31] LABS: Bacteria 0 SEEN /hpf (None Seen); Mucous, Urine 0 SEEN /hpf (<or=2+); White Blood Cells 0 SEEN /hpf (0-5)
[2022-08-08 17:37] LABS: Absolute Lymphocyte Count 0.66 X10^3/uL (0.83-4.51); Basophil# 0.06 X10^3/uL; Basophil% 0.8 % (0-1); Eosinophil# 0.15 X10^3/uL; Hematocrit 38.4 % (37-47); Hemoglobin 12.9 g/dL (12.0-15.0); Lymphocyte # 0.66 X10^3/ul (0.83-4.51); Lymphocyte % 8.6 % (19-41); Mean Corp Hgb Conc 33.6 g/dL (32-36); Mean Corpuscular Hgb 29.4 pg (27.0-32.0); Mean Corpuscular Volume 87.5 fL (81-99); Mean Platelet Vol. 9.7 fl (6.2-12.0); Monocyte# 0.74 X10^3/uL; Monocyte% 9.7 % (0-10); NRBC Flagged by Analyzer 0 % (0-5); Neutrophil # 5.99 X10^3/uL (2.7-7.7); Neutrophil % 78.1 % (47-70); Platelet Count 305 K/mm3 (150-450); RBC Distribution Width CV 13.5 % (11.6-14.6); RBC Distribution Width SD 43.1 fl (35.1-43.9); Red Blood Count 4.39 M/mm3 (4.2-5.4); White Blood Count 7.7 K/mm3 (4.4-11.0)
[2022-08-08 17:38] LABS: Color, Urine Yellow (Yellow); Glucose, Dipstick Normal (Normal); Ketone-Dipstick Negative (Negative); Leukocyte Esterase-Dipstick Negative /ul (Negative); Nitrite-Dipstick Negative (Negative); Occult Blood-Urine 150 /ul (Negative); Protein-Dipstick Negative (Negative); Specific Gravity, Urine 1.015 (1.002-1.030); Urine Bilirubin Dipstick Negative (Negative); Urine Clarity Sl. Cloudy (Clear); Urine Urobilinogen Normal (Normal)
[2022-08-08 17:50] LABS: Anion Gap 2 (5-15); BUN 13 mg/dL (7-18); Chloride 110 mmol/L (98-107); Creatinine, Serum 0.65 mg/dL (0.55-1.02); EST Glomerular Filtration Rate 111 mL/min (>60); Est Glom Filt Rate - Afr Amer 134 mL/min (>60); Estimated Creatinine Clearance 105.31 ml/min; Glucose 96 mg/dL (74-106); Potassium 3.9 mmol/L (3.5-5.1); Sodium Level 139 mmol/L (136-145)
[2022-08-08 17:53] LABS: Internal QC Validated? YES +Cl - CLEAR BKGD; Pregnancy, Serum, hCG Quali. NEGATIVE Negative
--- NOTE | 2022-08-08 18:08 | CT_ITS ---
STUDY: CT Abdomen And Pelvis W/ Contrast Injection 08/08/2022 8:11 PM REASON FOR EXAM: Female, 36 years old. ABDOMINAL PAIN rlq pain -- IV PO Contrast, hx crohns TECHNIQUE: Transaxial images were obtained with oral contrast, and with Oral and amp; IV Gastrografin and amp; 100mL Isovue-370 intravenous contrast. Individualized dose optimization techniques were used for this CT. COMPARISON: 05.16.22 FINDINGS: The visualized lung bases are unremarkable. The visualized portions of the heart are within normal limits. Unremarkable liver. Unremarkable gallbladder and extrahepatic biliary system. Unremarkable spleen. Unremarkable pancreas. Unremarkable bilateral adrenal glands. No acute findings of the right kidney. No acute findings of the left kidney. Unremarkable visualized stomach. Unremarkable small intestine. Unremarkable colon. The appendix is visualized and appears unremarkable. There are no acute findings of the abdominal aorta. Unremarkable inferior vena cava. Subcentimeter mesenteric lymph nodes. Unremarkable urinary bladder. There is trace free fluid in the pelvis. This can be physiologic. The uterus is normal in appearance. There are physiologic follicles or cysts of both ovaries. There is an umbilical hernia containing fat. There are diffuse degenerative changes of the visualized lumbar spine. CT/Abdomen/Pelvis WITH Contrast IMPRESSION: (NOT LISTED IN ORDER OF SIGNIFICANCE) There is free fluid in the pelvis. This can be physiologic. The appendix is visualized and is normal. Other findings as above. Electronically Signed: Serafin Benedict MD at 20:14 EST ,
[2022-08-08 18:10] LABS: Red Blood Cells-Urine 5-10 SEEN /hpf (0-5)
[2022-08-08 18:11] LABS: Other Crystals-Urine STARCH /hpf (None Seen); Squamous Epithelial Cells - UA 0-5 SEEN /hpf (5-10)
--- NOTE | 2022-08-08 18:13 | EDS_ITS ---
HPI HPI - GI History of Present Illness Chief Complaint: Abd Pain Informant: patient Narrative Narrative: History of Crohn's disease for the past [address] Gannon. No surgical history was previous on immunosuppressants however did not tolerate well. No abdominal surgeries. Last menstrual period a week ago. Noted right lower quadrant pain yesterday vomiting and diarrhea total of 7 emesis, total 10 diarrhea with very small amount of blood. Denies recent antibiotics. States had a fever yesterday. No urinary symptoms. No cough. History ovarian cyst followed by Dr. Ned Arevalo. Prior similar symptoms: Yes PFSH PFSH Medical History Anxiety Colitis Crohns disease Depression Stephanie Tobar infection Gestational diabetes Left ovarian cyst Sleep apnea Home Medications alprazolam 1 mg tablet 1 mg PO TID PRN Anxiety 07/12/21 [History Last Taken Unknown] citalopram 20 mg tablet 30 mg PO DAILY 07/12/21 [History Last Taken Unknown] promethazine 12.5 mg tablet 12.5 mg PO PRN PRN Nausea 07/12/21 [History Last Taken Unknown] cetirizine 5 mg tablet 5 mg PO DAILY 11/22/21 [History Last Taken Unknown] ondansetron 4 mg disintegrating tablet 4 mg PO Q6H PRN PRN Nausea #15 tabs 03/27/22 [Rx Last Taken Unknown] lactobacillus combination no.4 3 billion cell capsule (Probiotic) 3,000 mmu cells PO DAILY 04/25/22 [History Last Taken Unknown] Allergy/AdvReac Type Severity Reaction Status Date / Time nectarine Allergy Angioedema Verified 08/08/22 16:31 morphine AdvReac Mild increased Verified 08/08/22 16:31 HR metoclopramide [From Reglan] AdvReac Other Verified 08/08/22 16:31 Family History Mother Heart disease Pacemaker Grandfather Diabetes Grandmother Diabetes Surgical History History of colonoscopy (~2017) History of colonoscopy (~2017) History of esophagogastroduodenoscopy (EGD) (~2018) History of wisdom tooth extraction Social History household members: spouse Smoking Status: Light Smoker (<10/day) alcohol intake: never substance use type: does not use caffeine: Yes what type of physical activity do you participate in: walking seatbelt use: always do you feel safe at home: Yes additional social history: [employer] ROS ROS ED Constitutional Constitutional ED: Reports fever(s); Denies chills or sweats Eyes Eyes: Denies change in vision ENT ENT ED: Denies dysphagia or sore throat Cardiovascular Cardiovascular: Denies chest pain, leg edema, palpitations or racing heartbeat Respiratory/Chest Respiratory/Chest: Denies cough, dyspnea or dyspnea on exertion Gastrointestinal Gastrointestinal: Reports abdominal pain, diarrhea, nausea and vomiting Genitourinary Genitourinary ED: Denies dysuria, hematuria or urinary frequency Musculoskeletal Musculoskeletal: Denies back pain, extremity pain or neck pain Integumentary Denies rash or wounds Neurologic Neurologic: Denies headache(s), paresthesias or weakness EXAM Physical Exam Const Vital Signs: 08/08/22 16:30 08/08/22 18:29 08/08/22 19:31 Temperature 97.8 F 98.3 F Temperature Source Temporal Temporal Pulse Rate 97 82 89 Respiratory Rate 18 16 15 Blood Pressure 98/70 109/57 L 106/59 L Blood Pressure Mean 79 74 74 Pulse Ox 99 98 100 Oxygen Delivery Method Room Air Room Air Room Air 08/08/22 21:06 Temperature Temperature Source Pulse Rate 90 Respiratory Rate 15 Blood Pressure 111/59 L Blood Pressure Mean Pulse Ox 99 Oxygen Delivery Method Positive well nourished and well developed General Appearance ED: well developed and NAD HEENT HEENT Narrative: Mild dry mucosal membranes normocephalic and atraumatic Eyes PERRL, EOMs intact bilaterally and conjunctivae normal General Eye ED: Yes normal appearance of both eyes Neck no lymphadenopathy and supple General: Negative for tenderness Chest Wall Chest: Negative for tenderness Resp normal respiratory effort and normal air movement Effort and Inspection: symmetric chest movement; Negative for respiratory distress Cardio regular rate, regular rhythm and no murmurs Peripheral Pulses: pulses 2+ throughout GI normal to inspection, nondistended, normoactive bowel sounds GI Narrative: Right lower quadrant tenderness mild left lower quadrant tenderness. No guarding or rebound. Palpation: Negative for guarding or rebound tenderness present Back/Spine no CVA tenderness and no thoracic nor lumbar tenderness Extremity normal to inspection General Extremety ED: Negative for edema or tenderness General Extremity: Negative for edema Neuro oriented x3 and no sensory deficits noted Sensorium / Orientation: awake and alert Skin no rashes or lesions noted and no wounds MDM MDM MDM Narrative Medical decision making narrative: Patient presented right lower quadrant tenderness with Crohn's history. Treated with fentanyl for her pain due to morphine allergy. Abdominal labs were all normal. CT scan with IV and oral contrast normal appendix with no inflammatory findings. She is tolerating oral fluids in the ED. No vomiting. No diarrhea. She has Zofran and Phenergan at home along with Bentyl. Discussed clear liquid diet for next 24 hours and follow-up with her physicians as an outpatient. Return precautions. All questions were answered. Lab Data Attestation: I reviewed the patient's lab results. Labs: Laboratory Results - last 24 hr 08/08/22 08/08/22 08/08/22 16:13 16:13 16:13 WBC 7.7 RBC 4.39 Hgb 12.9 Hct 38.4 MCV 87.5 MCH 29.4 MCHC 33.6 RDW Std Deviation 43.1 RDW Coeff of Dimitrios 13.5 Plt Count 305 MPV 9.7 Immature Gran % (Auto) 0.800 Neut % (Auto) 78.1 H Lymph % (Auto) 8.6 L [place] % (Auto) 9.7 Eos % (Auto) 2.0 Baso % (Auto) 0.8 Absolute Neuts (auto) 6.0 Absolute Lymphs (auto) 0.66 L Nucleated RBC % 0 Sodium 139 Potassium 3.9 Chloride 110 H Carbon Dioxide 27.0 Anion Gap 2 L BUN 13 Creatinine 0.65 Estim Creat Clear Calc 105.31 Est GFR (MDRD) Af Amer 134 Est GFR (MDRD) Non-Af 111 BUN/Creatinine Ratio 20.0 Glucose 96 Calcium 9.0 Total Bilirubin Direct Bilirubin AST ALT Alkaline Phosphatase Total Protein Albumin Globulin Lipase Serum , Qual NEGATIVE Urine Color Urine Clarity Urine pH Ur Specific [place] Urine Protein Urine Glucose (UA) Urine Ketones Urine Occult Blood Urine Nitrite Urine Bilirubin Urine Urobilinogen Ur Leukocyte Esterase Urine RBC Urine WBC Ur Squamous Epith Cells Other Crystals Urine Bacteria Urine Mucus 08/08/22 08/08/22 16:13 16:15 WBC RBC Hgb Hct MCV MCH MCHC RDW Std Deviation RDW Coeff of Dimitrios Plt Count MPV Immature Gran % (Auto) Neut % (Auto) Lymph % (Auto) [place] % (Auto) Eos % (Auto) Baso % (Auto) Absolute Neuts (auto) Absolute Lymphs (auto) Nucleated RBC % Sodium Potassium Chloride Carbon Dioxide Anion Gap BUN Creatinine Estim Creat Clear Calc Est GFR (MDRD) Af Amer Est GFR (MDRD) Non-Af BUN/Creatinine Ratio Glucose Calcium Total Bilirubin 0.20 Direct Bilirubin 0.07 AST 14 L ALT 22 Alkaline Phosphatase 53 Total Protein 7.1 Albumin 4.0 Globulin 3.1 Lipase 123 Serum , Qual Urine Color Yellow Urine Clarity Sl. Cloudy Urine pH 6.0 Ur Specific [place] 1.015 Urine Protein Negative Urine Glucose (UA) Normal Urine Ketones Negative Urine Occult Blood 150 H Urine Nitrite Negative Urine Bilirubin Negative Urine Urobilinogen Normal Ur Leukocyte Esterase Negative Urine RBC 5-10 SEEN Urine WBC 0 SEEN Ur Squamous Epith Cells 0-5 SEEN Other Crystals STARCH Urine Bacteria 0 SEEN Urine Mucus 0 SEEN Radiography Diagnostic Testing: Clinical Impression(s) from Imaging Studies Abdomen/Pelvis CT 08/08/22 18:08 IMPRESSION: (NOT LISTED IN ORDER OF SIGNIFICANCE) There is free fluid in the pelvis. This can be physiologic. The appendix is visualized and is normal. Other findings as above. Electronically Signed: Serafin Benedict MD at 20:14 EST Reading Location ID and State: [facility] [place] / [place] , Service support , Discharge Plan Triage Chief Complaint: Abd Pain ED Provider: Camilo Lux Dx/Rx/DC Orders Clinical Impression: Abdominal pain, Nausea, vomiting and diarrhea, Crohn's disease Instructions: Abdominal Pain, ED Diarrhea, Unknown Cause, ED Vomiting (Adult) Prescriptions: No Action Probiotic 3 billion cell capsule 3,000 mmu cells PO DAILY Rx Instructions: administer with a meal alprazolam 1 mg tablet 1 mg PO TID PRN (Reason: Anxiety) Label Comments: TAKE 1 TABLET BY MOUTH THREE TIMES DAILY NEEDED promethazine 12.5 mg tablet 12.5 mg PO PRN PRN (Reason: Nausea) Label Comments: Take 1 tablet by mouth every 6 hours as needed. citalopram 20 mg tablet 30 mg PO DAILY Label Comments: TAKE 1 & 1/2 (ONE AND ONE-HALF) TABLETS BY MOUTH ONCE DAILY cetirizine [Zyrtec] 5 mg Tablet 5 mg PO DAILY ondansetron [ondansetron] 4 MG tablet 4 mg PO Q6H PRN PRN (Reason: Nausea) Qty: 15 0RF Primary Care Provider: Azael Lr Referrals: Azael Lr MD [Primary Care Provider] - 3-5 Days Activity Restrictions/Additional Instructions: Labs all normal CT scan normal appendix with no inflammatory findings. Clear liquid diet for next 24 hours. Continue your medications as needed follow-up with your doctors. Disposition Disposition: Home, Self Care Discharge Date/Time: 08/08/22 21:08
[2022-08-08] MEDS: fentaNYL 100 MCG/2 ML Ampul 50 MCG IV ×2 (18:17→19:35)
[2022-08-08] MEDS: 0.9% Normal Saline 1,000 ML 1000 ML IV (18:18)
[2022-08-08] MEDS: Ondansetron 4 MG/2 ML Vial IV (18:18)
[2022-08-08 18:29] VITALS: BP 109/57; PULSE 82; RESP 16; TEMP 36.8; O2SAT 98
[2022-08-08 18:35] LABS: AST(SGOT) 14 U/L (15-37); Alanine Aminotransfer ALT/SGPT 22 U/L (13-56); Alkaline Phosphatase 53 U/L (45-117); Bilirubin, Direct 0.07 mg/dL (0.00-0.30); Globulin 3.1 g/dL (2.2-4.2); Lipase 123 U/L (73-393); Protein, Total 7.1 g/dL (6.4-8.2)
[2022-08-08 19:31] VITALS: BP 106/59; PULSE 89; RESP 15; O2SAT 100
[2022-08-08 21:06] VITALS: BP 111/59; PULSE 90; RESP 15; O2SAT 99
== END 2022-08-08 21:08 | disposition home or self-care (01) ==
PROVIDERS: Emergency Provider Emergency Medicine; PCP Family Medicine; Visit Provider Emergency Medicine
DX: R11.2 Nausea with vomiting, unspecified (principal); K50.90 Crohn's disease, unspecified, without complications; R19.7 Diarrhea, unspecified; F17.200 Nicotine dependence, unspecified, uncomplicated; R10.9 Unspecified abdominal pain
CPT/HCPCS: 74177; 80048; 80076; 81001; 83690; 84703; 85025; 96361; 96374; 96375; 96376; 99283; J7030; Q9967; A4216; J2405

== ENCOUNTER 2022-08-14 11:15 | Emergency (ER) | payer OTHER, SELFPAY ==
[2022-08-14 11:16] VITALS: BP 102/76; PULSE 80; RESP 18; TEMP 36.3; O2SAT 98; BMI 26.6
--- NOTE | 2022-08-14 11:57 | EDS_ITS ---
HPI History of Present Illness Chief Complaint: Back Informant: patient Onset/Context/Timing Onset: Weeks Context: Gradual Onset Timing: Waxes and wanes Current Severity: Moderate Maximum Severity: Moderate Narrative Narrative: Patient presents with continued nausea and vomiting along with back pain. She is had back pain since shortly before Thanksgiving when she fell. Had gotten significantly better but she recently had a Crohn's flare with a lot of nausea and vomiting. Due to the retching she now has increased low back pain. She states it wraps around both hips and down into her legs. She states that her son was diagnosed with influenza yesterday. She is been trying Phenergan and Zofran at home without improvement. She is been taking Tylenol and ibuprofen for pain. [facility] Medical History Anxiety Colitis Crohns disease Depression Stephanie Tobar infection Gestational diabetes Left ovarian cyst Sleep apnea Home Medications citalopram 20 mg tablet 30 mg PO DAILY 07/12/21 [History Last Taken Unknown] oxycodone-acetaminophen 5 mg-325 mg tablet (Percocet) 1 tab PO Q6H PRN pain 3 days #10 tabs 08/14/22 [Rx Last Taken Unknown] prochlorperazine maleate 5 mg tablet (Compazine) 5 mg PO TID PRN nausea and vomiting #14 tabs 08/14/22 [Rx Last Taken Unknown] Allergy/AdvReac Type Severity Reaction Status Date / Time nectarine Allergy Angioedema Verified 08/14/22 11:18 morphine AdvReac Mild increased Verified 08/14/22 11:18 HR metoclopramide [From Reglan] AdvReac Other Verified 08/14/22 11:18 Family History Mother Heart disease Pacemaker Grandfather Diabetes Grandmother Diabetes Surgical History History of colonoscopy (~2017) History of colonoscopy (~2017) History of esophagogastroduodenoscopy (EGD) (~2018) History of wisdom tooth extraction Social History household members: spouse Smoking Status: Light Smoker (<10/day) alcohol intake: never substance use type: does not use caffeine: Yes what type of physical activity do you participate in: walking seatbelt use: always do you feel safe at home: Yes additional social history: [employer] ROS ROS ED Constitutional Constitutional ED: Denies chills or fever(s) Eyes Eyes: Denies change in vision or discharge from eye(s) ENT ENT ED: Denies discharge from eye(s), rhinorrhea or sore throat Cardiovascular Cardiovascular: Denies chest pain or palpitations Respiratory/Chest Respiratory/Chest: Denies cough or dyspnea Gastrointestinal Gastrointestinal: Reports abdominal pain, nausea and vomiting; Denies diarrhea Genitourinary Genitourinary ED: Denies difficulty urinating or dysuria Musculoskeletal Musculoskeletal: Reports back pain and extremity pain Integumentary Denies Abrasions or rash Neurologic Neurologic: Denies headache(s) or weakness Psychiatric Psychiatric: Denies anxiety or depression Allergic/Immunologic Allergic/Immunologic ED: Denies lip swelling or urticaria EXAM Physical Exam Const Vital Signs: 08/14/22 11:16 Temperature 97.3 F L Temperature Source Temporal Pulse Rate 80 Respiratory Rate 18 Blood Pressure 102/76 Blood Pressure Mean 84 Pulse Ox 98 Oxygen Delivery Method Room Air Positive well nourished and well developed General Appearance ED: well developed HEENT Reports normocephalic and head/scalp atraumatic Eyes PERRL and EOMs intact bilaterally Neck supple Chest Wall inspection of chest normal and palpation of chest normal Resp normal respiratory effort and clear to auscultation bilaterally Cardio regular rate and regular rhythm GI non-tender Auscultation: hypoactive bowel sounds Palpation: soft Back/Spine Back/Spine Narrative: Bilateral lumbar paraspinal tenderness. No erythema or point tenderness. Extremity normal to inspection Neuro oriented x3 and no sensory deficits noted Sensorium / Orientation: alert Motor Exam: strength 5/5 throughout Psych Mood & Affect: anxious and tearful Skin no rashes or lesions noted MDM MDM MDM Narrative Medical decision making narrative: Patient was given IM Dilaudid and Compazine. Lidoderm patch placed on her back. Urinalysis obtained as well as influenza/COVID swab. Lab Data Attestation: I reviewed the patient's lab results. Labs: Laboratory Results - last 24 hr 08/14/22 12:07 Urine Color Straw Urine Clarity Clear Urine pH 6.5 Ur Specific [place] 1.005 Urine Protein Negative Urine Glucose (UA) Normal Urine Ketones Negative Urine Occult Blood 10 H Urine Nitrite Negative Urine Bilirubin Negative Urine Urobilinogen Normal Ur Leukocyte Esterase 25 H Urine RBC 0 SEEN Urine WBC 0 SEEN Ur Squamous Epith Cells 0 SEEN Urine Bacteria 0 SEEN Urine Mucus 0 SEEN Treatment and Re-Evaluation Narrative: Urinalysis reveals no sign of acute infection. Swabs for COVID and influenza are negative. On repeat evaluation patient is improved. I did do an [facility] report. Her last narcotic prescription was in March. She will be given a short course of Percocet and Compazine. Return instructions given. I did review the patient's recent work-up including laboratory studies and CT scan. I do not feel this needs to be repeated at this time. Discharge Plan Triage Chief Complaint: Back ED Provider: Niyah Hankins Dx/Rx/DC Orders Clinical Impression: Vomiting, Lumbar strain Instructions: ED Back Sprain/Strain, ED Vomiting (Adult) Prescriptions: New oxycodone-acetaminophen [Percocet] 5-325 mg tablet 1 tab PO Q6H PRN (Reason: pain) 3 Days Qty: 10 0RF prochlorperazine maleate [Compazine] 5 mg tablet 5 mg PO TID PRN (Reason: nausea and vomiting) Qty: 14 0RF No Action citalopram 20 mg tablet 30 mg PO DAILY Label Comments: TAKE 1 & 1/2 (ONE AND ONE-HALF) TABLETS BY MOUTH ONCE DAILY Primary Care Provider: Azael Lr Referrals: Azael Lr MD [Primary Care Provider] - 1 Week if not improving Disposition Disposition: Home, Self Care
[2022-08-14 12:15] LABS: Bacteria 0 SEEN /hpf (None Seen); Mucous, Urine 0 SEEN /hpf (<or=2+); Red Blood Cells-Urine 0 SEEN /hpf (0-5); Squamous Epithelial Cells - UA 0 SEEN /hpf (5-10); White Blood Cells 0 SEEN /hpf (0-5)
[2022-08-14] MEDS: HYDROmorphone 1 MG/ML Syringe IM (12:18)
[2022-08-14] MEDS: proCHLORPERazine 10 MG/2 ML Vial 5 MG IM (12:19)
[2022-08-14 12:20] LABS: Color, Urine Straw (Yellow); Glucose, Dipstick Normal (Normal); Ketone-Dipstick Negative (Negative); Leukocyte Esterase-Dipstick 25 /ul (Negative); Nitrite-Dipstick Negative (Negative); Occult Blood-Urine 10 /ul (Negative); Protein-Dipstick Negative (Negative); Specific Gravity, Urine 1.005 (1.002-1.030); Urine Bilirubin Dipstick Negative (Negative); Urine Clarity Clear (Clear); Urine Urobilinogen Normal (Normal); Urine pH 6.5 (5.0 - 8.0)
[2022-08-14] MEDS: Lidocaine 5% Patch 1 PATCH TOPICAL (12:20)
[2022-08-14 13:43] VITALS: BP 109/62; PULSE 61; RESP 16; O2SAT 100
== END 2022-08-14 13:44 | disposition home or self-care (01) ==
PROVIDERS: Emergency Provider Emergency Medicine; PCP Family Medicine; Visit Provider Emergency Medicine
DX: S39.012A Strain of muscle, fascia and tendon of lower back, initial encounter (principal); F17.200 Nicotine dependence, unspecified, uncomplicated; R11.10 Vomiting, unspecified; R10.9 Unspecified abdominal pain; Z20.822 Contact with and (suspected) exposure to COVID-19; W19.XXXA Unspecified fall, initial encounter
CPT/HCPCS: 81001; 87428; 96372; 99283

== ENCOUNTER 2022-09-02 16:42 | Emergency (ER) | payer OTHER, SELFPAY ==
[2022-09-02 16:43] VITALS: BP 103/74; PULSE 89; RESP 14; TEMP 36.8; O2SAT 98; BMI 26.4
[2022-09-02] MEDS: 0.9% Normal Saline 1,000 ML 1000 ML IV (18:47)
[2022-09-02] MEDS: Ondansetron 4 MG/2 ML Vial IV (18:47)
--- NOTE | 2022-09-02 18:47 | EX.ED.DYSGE1 ---
HPI History of Present Illness Chief Complaint: Abd Pain Informant: patient Narrative Narrative: 36-year-old female presenting with abdominal pain, nausea, vomiting, diarrhea. She has history of Crohn's. She states she has been able to keep small amounts of water down. She denies blood in her stool or emesis. Denies fever. She states her son had similar complaints approximately 3 weeks ago with influenza. Prior similar symptoms: Yes Recent Illness/Hospitalization: No PFSH PFSH Medical History Anxiety Colitis Crohns disease Depression Stephanie Tobar infection Gestational diabetes Left ovarian cyst Sleep apnea Home Medications citalopram 20 mg tablet 30 mg PO DAILY 07/12/21 [History Last Taken Unknown] prochlorperazine maleate 5 mg tablet (Compazine) 5 mg PO TID PRN nausea and vomiting #14 tabs 08/14/22 [Rx Last Taken Unknown] ondansetron 4 mg disintegrating tablet 8 mg PO Q8H PRN PRN Nausea #20 tabs 09/02/22 [Rx Last Taken Unknown] Allergy/AdvReac Type Severity Reaction Status Date / Time nectarine Allergy Angioedema Verified 09/02/22 16:43 metoclopramide [From Reglan] AdvReac Other Verified 09/02/22 16:43 Family History Mother Heart disease Pacemaker Grandfather Diabetes Grandmother Diabetes Surgical History History of colonoscopy (~2017) History of colonoscopy (~2017) History of esophagogastroduodenoscopy (EGD) (~2018) History of wisdom tooth extraction Social History household members: spouse Smoking Status: Light Smoker (<10/day) alcohol intake: never substance use type: does not use caffeine: Yes what type of physical activity do you participate in: walking seatbelt use: always do you feel safe at home: Yes additional social history: [employer] ROS ROS ED Constitutional Constitutional ED: Denies fever(s) Eyes Eyes: Denies change in vision ENT ENT ED: Denies rhinorrhea or sore throat Cardiovascular Cardiovascular: Denies chest pain or palpitations Respiratory/Chest Respiratory/Chest: Denies cough or dyspnea Gastrointestinal Gastrointestinal: Reports abdominal pain, diarrhea, nausea and vomiting Genitourinary Genitourinary ED: Reports dysuria Musculoskeletal Musculoskeletal: Denies myalgias Integumentary Denies rash Neurologic Neurologic: Denies headache(s) Psychiatric Psychiatric: Denies suicidal thoughts EXAM Physical Exam Const Vital Signs: 09/02/22 16:43 09/02/22 19:52 09/02/22 21:50 Temperature 98.2 F Temperature Source Temporal Pulse Rate 89 58 L 66 Respiratory Rate 14 16 16 Blood Pressure 103/74 108/60 106/50 L Blood Pressure Mean 83 76 68 Pulse Ox 98 100 97 Oxygen Delivery Method Room Air Room Air Room Air Positive well nourished and well developed General Appearance ED: well developed HEENT Reports normocephalic and head/scalp atraumatic Eyes PERRL and EOMs intact bilaterally Neck supple General: Negative for tenderness Chest Wall inspection of chest normal Resp normal respiratory effort and clear to auscultation bilaterally Cardio regular rate and regular rhythm GI non-tender and non-distended Palpation: soft and tender other (mild diffuse); Negative for guarding or rebound tenderness present no CVA tenderness Extremity normal to inspection Neuro oriented x3 Sensorium / Orientation: alert Psych mental status grossly normal MDM MDM MDM Narrative Medical decision making narrative: Patient was given IV fluids, morphine, Zofran. CBC shows white count 12.1. Chemistries are unremarkable. Lipase is normal. hCG negative. Urinalysis shows 0-5 white blood cells, 0-5 red blood cells. COVID, influenza negative. On reevaluation, patient is feeling improved. She states she has had multiple CT scans in the past and declines CT scan today. She feels improved and feels comfortable being discharged home. She is given prescription for Zofran. She is advised signs and symptoms for which to return to ED. Advised to follow-up with her GI physician. Advised return to ED for worsening complaints. Lab Data Attestation: I reviewed the patient's lab results. Labs: Laboratory Results - last 24 hr 09/02/22 09/02/22 09/02/22 18:42 18:42 18:42 WBC 12.1 H RBC 4.46 Hgb 13.2 Hct 40.1 MCV 89.9 MCH 29.6 MCHC 32.9 RDW Std Deviation 42.5 RDW Coeff of Dimitrios 12.9 Plt Count 384 MPV 9.5 Immature Gran % (Auto) 0.400 Neut % (Auto) 58.5 Lymph % (Auto) 32.8 [place] % (Auto) 5.2 Eos % (Auto) 2.4 Baso % (Auto) 0.7 Absolute Neuts (auto) 7.1 Absolute Lymphs (auto) 3.98 Nucleated RBC % 0 Sodium 138 Potassium 3.5 Chloride 106 Carbon Dioxide 28.0 Anion Gap 4 L BUN 19 H Creatinine 0.56 Estim Creat Clear Calc 122.23 Est GFR (MDRD) Af Amer 158 Est GFR (MDRD) Non-Af 130 BUN/Creatinine Ratio 33.7 H Glucose 107 H Calcium 8.8 Total Bilirubin 0.20 AST 9 L ALT 15 Alkaline Phosphatase 51 Total Protein 7.0 Albumin 4.1 Globulin 2.9 Albumin/Globulin Ratio 1.4 Lipase 120 Serum , Qual NEGATIVE Urine Color Urine Clarity Urine pH Ur Specific [place] Urine Protein Urine Glucose (UA) Urine Ketones Urine Occult Blood Urine Nitrite Urine Bilirubin Urine Urobilinogen Ur Leukocyte Esterase Urine RBC Urine WBC Ur Squamous Epith Cells Urine Bacteria Urine Mucus 09/02/22 18:52 WBC RBC Hgb Hct MCV MCH MCHC RDW Std Deviation RDW Coeff of Dimitrios Plt Count MPV Immature Gran % (Auto) Neut % (Auto) Lymph % (Auto) [place] % (Auto) Eos % (Auto) Baso % (Auto) Absolute Neuts (auto) Absolute Lymphs (auto) Nucleated RBC % Sodium Potassium Chloride Carbon Dioxide Anion Gap BUN Creatinine Estim Creat Clear Calc Est GFR (MDRD) Af Amer Est GFR (MDRD) Non-Af BUN/Creatinine Ratio Glucose Calcium Total Bilirubin AST ALT Alkaline Phosphatase Total Protein Albumin Globulin Albumin/Globulin Ratio Lipase Serum , Qual Urine Color Straw Urine Clarity Clear Urine pH 7.0 Ur Specific [place] 1.005 Urine Protein Negative Urine Glucose (UA) Normal Urine Ketones Negative Urine Occult Blood 10 H Urine Nitrite Negative Urine Bilirubin Negative Urine Urobilinogen Normal Ur Leukocyte Esterase 25 H Urine RBC 0-5 SEEN Urine WBC 0-5 SEEN Ur Squamous Epith Cells 0-5 SEEN Urine Bacteria 0 SEEN Urine Mucus 0 SEEN Discharge Plan Triage Chief Complaint: Abd Pain ED Provider: Jessica Quintana Dx/Rx/DC Orders Clinical Impression: Abdominal pain, vomiting, and diarrhea Instructions: Abdominal Pain, ED Diet Vomiting Diarrhea Prescriptions: New ondansetron 4 mg tablet,disintegrating 8 mg PO Q8H PRN PRN (Reason: Nausea) Qty: 20 0RF No Action citalopram 20 mg tablet 30 mg PO DAILY Label Comments: TAKE 1 & 1/2 (ONE AND ONE-HALF) TABLETS BY MOUTH ONCE DAILY prochlorperazine maleate [Compazine] 5 mg tablet 5 mg PO TID PRN (Reason: nausea and vomiting) Qty: 14 0RF Primary Care Provider: Azael Lr Referrals: Azael Lr MD [Primary Care Provider] - Disposition Disposition: Home, Self Care
[2022-09-02] MEDS: Morphine 4 MG/ML Syringe IV ×2 (18:55→21:07)
[2022-09-02 19:00] LABS: Absolute Lymphocyte Count 3.98 X10^3/uL (0.83-4.51); Absolute Neutrophil Count 7.1 X10^3/uL (2.0-7.7); Basophil# 0.08 X10^3/uL; Basophil% 0.7 % (0-1); Eosinophil# 0.29 X10^3/uL; Eosinophils% 2.4 % (0-5); Hematocrit 40.1 % (37-47); Hemoglobin 13.2 g/dL (12.0-15.0); Lymphocyte # 3.98 X10^3/ul (0.83-4.51); Lymphocyte % 32.8 % (19-41); Mean Corp Hgb Conc 32.9 g/dL (32-36); Mean Corpuscular Hgb 29.6 pg (27.0-32.0); Mean Corpuscular Volume 89.9 fL (81-99); Mean Platelet Vol. 9.5 fl (6.2-12.0); Monocyte# 0.63 X10^3/uL; Monocyte% 5.2 % (0-10); NRBC Flagged by Analyzer 0 % (0-5); Neutrophil # 7.09 X10^3/uL (2.7-7.7); Neutrophil % 58.5 % (47-70); Platelet Count 384 K/mm3 (150-450); RBC Distribution Width CV 12.9 % (11.6-14.6); RBC Distribution Width SD 42.5 fl (35.1-43.9); Red Blood Count 4.46 M/mm3 (4.2-5.4); White Blood Count 12.1 K/mm3 (4.4-11.0)
[2022-09-02 19:02] LABS: Bacteria 0 SEEN /hpf (None Seen); Mucous, Urine 0 SEEN /hpf (<or=2+)
[2022-09-02 19:16] LABS: ALB/GLOB Ratio 1.4 RATIO (0.9-2.4); AST(SGOT) 9 U/L (15-37); Alanine Aminotransfer ALT/SGPT 15 U/L (13-56); Albumin, Serum 4.1 g/dL (3.2-5.0); Alkaline Phosphatase 51 U/L (45-117); Anion Gap 4 (5-15); BUN 19 mg/dL (7-18); BUN/Creat Ratio 33.7 RATIO (10-20); Calcium,Total 8.8 mg/dL (8.5-10.1); Chloride 106 mmol/L (98-107); Creatinine, Serum 0.56 mg/dL (0.55-1.02); EST Glomerular Filtration Rate 130 mL/min (>60); Est Glom Filt Rate - Afr Amer 158 mL/min (>60); Estimated Creatinine Clearance 122.23 ml/min; Globulin 2.9 g/dL (2.2-4.2); Glucose 107 mg/dL (74-106); Lipase 120 U/L (73-393); Potassium 3.5 mmol/L (3.5-5.1); Sodium Level 138 mmol/L (136-145)
[2022-09-02 19:22] LABS: Color, Urine Straw (Yellow); Glucose, Dipstick Normal (Normal); Ketone-Dipstick Negative (Negative); Leukocyte Esterase-Dipstick 25 /ul (Negative); Nitrite-Dipstick Negative (Negative); Occult Blood-Urine 10 /ul (Negative); Protein-Dipstick Negative (Negative); Specific Gravity, Urine 1.005 (1.002-1.030); Urine Bilirubin Dipstick Negative (Negative); Urine Clarity Clear (Clear); Urine Urobilinogen Normal (Normal)
[2022-09-02 19:23] LABS: Internal QC Validated? YES +Cl - CLEAR BKGD; Pregnancy, Serum, hCG Quali. NEGATIVE Negative
[2022-09-02 19:52] VITALS: BP 108/60; PULSE 58; RESP 16; O2SAT 100
[2022-09-02 20:00] LABS: Red Blood Cells-Urine 0-5 SEEN /hpf (0-5); Squamous Epithelial Cells - UA 0-5 SEEN /hpf (5-10); White Blood Cells 0-5 SEEN /hpf (0-5)
[2022-09-02 21:50] VITALS: BP 106/50; PULSE 66; RESP 16; O2SAT 97
[2022-09-02] MEDS: Morphine 2 MG/ML Syringe IV (22:40)
[2022-09-02 22:45] VITALS: BP 101/60; PULSE 60; RESP 16
--- NOTE | 2022-09-02 22:50 | ED.RN ---
pt left prior to the 15 minute wait time,with instruction papers.
== END 2022-09-02 22:51 | disposition home or self-care (01) ==
PROVIDERS: Emergency Provider Emergency Medicine; PCP Family Medicine; Visit Provider Emergency Medicine
DX: R10.9 Unspecified abdominal pain (principal); K50.90 Crohn's disease, unspecified, without complications; R11.2 Nausea with vomiting, unspecified; R19.7 Diarrhea, unspecified; F17.200 Nicotine dependence, unspecified, uncomplicated; G47.30 Sleep apnea, unspecified; F41.9 Anxiety disorder, unspecified; F32.A Depression, unspecified; Z79.899 Other long term (current) drug therapy
CPT/HCPCS: 80053; 81001; 83690; 84703; 85025; 87428; 96361; 96374; 96375; 96376; 99283; J7030; A4216; J2405

== ENCOUNTER 2022-10-03 17:57 | Emergency (ER) | payer OTHER, SELFPAY ==
[2022-10-03 17:58] VITALS: BP 97/78; PULSE 89; RESP 15; TEMP 37.1; O2SAT 98; BMI 26.9
--- NOTE | 2022-10-03 18:22 | CT_ITS ---
STUDY: CT Abdomen And Pelvis W/ Contrast Injection 10/03/2022 8:14 PM REASON FOR EXAM: Female, 36 years old. ABDOMINAL PAIN abd pain -- C/O LUQ PAIN, HX LEFT OVARIAN CYST, CROHNS DISEASE TECHNIQUE: Transaxial images were obtained with Oral Gastrografin and 100mL Isovue-370 intravenous contrast. Individualized dose optimization techniques were used for this CT. COMPARISON: 08.08.22. FINDINGS: The visualized lung bases are unremarkable. The visualized portions of the heart are within normal limits. Unremarkable liver. Unremarkable gallbladder and extrahepatic biliary system. Unremarkable spleen. Unremarkable pancreas. Unremarkable bilateral adrenal glands. No acute findings of the right kidney. No acute findings of the left kidney. Unremarkable visualized stomach. Unremarkable small intestine. Unremarkable colon. The appendix is visualized and appears unremarkable. There are no acute findings of the abdominal aorta. Unremarkable inferior vena cava. Subcentimeter mesenteric lymph nodes. Unremarkable urinary bladder. 43mm right ovary cyst. ACR White Paper guidelines (Calvert, et. al. JACR 2020;17(2):248-254) suggest no follow-up is necessary. There is an umbilical hernia containing fat. There are diffuse degenerative changes of the visualized lumbar spine. CT/Abdomen/Pelvis WITH Contrast IMPRESSION: (NOT LISTED IN ORDER OF SIGNIFICANCE) There are no acute findings. 43mm right ovary cyst. ACR White Paper guidelines (Calvert, et. al. JACR 2020;17(2):248-254) suggest no follow-up is necessary. Other findings as above. Electronically Signed: Serafin Benedict MD at 20:18 EST ,
--- NOTE | 2022-10-03 18:26 | EX.ED.DYSGE1 ---
HPI History of Present Illness Chief Complaint: Abd Pain Informant: patient Onset/Context/Timing Onset: Days Context: Gradual Onset Current Severity: Moderate Maximum Severity: Moderate Narrative Narrative: Patient presents with abdominal pain and vomiting. Patient has a history of Crohn's disease. She states she will intermittently get episodes of abdominal pain. She recently developed left upper quadrant abdominal pain but today has had vomiting and unable to keep anything down. She is not on any maintenance medication for her Crohn's, but states that she will take Zofran, Phenergan, Tylenol when she gets a flare. These were not helping her symptoms today. She denies having fever. [facility] Medical History Anxiety Colitis Crohns disease Depression Stephanie Tobar infection Gestational diabetes Left ovarian cyst Sleep apnea Home Medications citalopram 20 mg tablet 30 mg PO DAILY 07/12/21 [History Last Taken Unknown] prochlorperazine maleate 5 mg tablet (Compazine) 5 mg PO TID PRN nausea and vomiting #14 tabs 08/14/22 [Rx Last Taken Unknown] ondansetron 4 mg disintegrating tablet 8 mg PO Q8H PRN PRN Nausea #20 tabs 09/02/22 [Rx Last Taken Unknown] oxycodone-acetaminophen 5 mg-325 mg tablet (Percocet) 1 tab PO Q8H PRN pain 3 days #10 tabs 10/03/22 [Rx Last Taken Unknown] Allergy/AdvReac Type Severity Reaction Status Date / Time nectarine Allergy Angioedema Verified 10/03/22 17:58 metoclopramide [From Reglan] AdvReac Other Verified 10/03/22 17:58 Family History Mother Heart disease Pacemaker Grandfather Diabetes Grandmother Diabetes Surgical History History of colonoscopy (~2017) History of colonoscopy (~2017) History of esophagogastroduodenoscopy (EGD) (~2018) History of wisdom tooth extraction Social History household members: spouse Smoking Status: Light Smoker (<10/day) alcohol intake: never substance use type: does not use caffeine: Yes what type of physical activity do you participate in: walking seatbelt use: always do you feel safe at home: Yes additional social history: [employer] ROS ROS ED Constitutional Constitutional ED: Denies chills or fever(s) Eyes Eyes: Denies change in vision or discharge from eye(s) ENT ENT ED: Denies discharge from eye(s), rhinorrhea or sore throat Cardiovascular Cardiovascular: Denies chest pain or palpitations Respiratory/Chest Respiratory/Chest: Denies cough or dyspnea Gastrointestinal Gastrointestinal: Reports abdominal pain, nausea and vomiting; Denies diarrhea Genitourinary Genitourinary ED: Denies dysuria Musculoskeletal Musculoskeletal: Denies back pain or extremity pain Integumentary Denies Abrasions or rash Neurologic Neurologic: Denies headache(s) or weakness Psychiatric Psychiatric: Denies anxiety or depression Endocrine Endocrinology: Denies polydipsia or polyuria Allergic/Immunologic Allergic/Immunologic ED: Denies lip swelling or urticaria EXAM Physical Exam Const Vital Signs: 10/03/22 17:58 Temperature 98.7 F Temperature Source Temporal Pulse Rate 89 Respiratory Rate 15 Blood Pressure 97/78 Blood Pressure Mean 84 Pulse Ox 98 Oxygen Delivery Method Room Air Positive well nourished and well developed General Appearance ED: well developed HEENT Reports normocephalic and head/scalp atraumatic Eyes PERRL and EOMs intact bilaterally Neck supple Chest Wall inspection of chest normal and palpation of chest normal Resp normal respiratory effort and clear to auscultation bilaterally Cardio regular rate and regular rhythm GI GI Narrative: Hypoactive bowel sounds. Tenderness in the left upper quadrant. No guarding or rebound. Palpation: soft Extremity normal to inspection Neuro oriented x3 and no sensory deficits noted Sensorium / Orientation: alert Motor Exam: strength 5/5 throughout Psych mental status grossly normal Skin no rashes or lesions noted MDM MDM MDM Narrative Medical decision making narrative: Patient given morphine and Zofran along with IV fluids. Lab work obtained to evaluate for leukocytosis/infection, anemia, electrolyte derangement. CT scan of the abdomen pelvis with contrast obtained. Lab Data Attestation: I reviewed the patient's lab results. Labs: Laboratory Results - last 24 hr 10/03/22 10/03/22 10/03/22 18:46 18:46 18:46 WBC 10.5 RBC 4.48 Hgb 13.1 Hct 40.0 MCV 89.3 MCH 29.2 MCHC 32.8 RDW Std Deviation 42.7 RDW Coeff of Dimitrios 13.0 Plt Count 375 MPV 9.2 Immature Gran % (Auto) 0.400 Neut % (Auto) 52.2 Lymph % (Auto) 39.3 [place] % (Auto) 5.0 Eos % (Auto) 2.3 Baso % (Auto) 0.8 Absolute Neuts (auto) 5.5 Absolute Lymphs (auto) 4.14 Nucleated RBC % 0 Sodium 140 Potassium 3.9 Chloride 107 Carbon Dioxide 27.0 Anion Gap 6 BUN 14 Creatinine 0.58 Estim Creat Clear Calc 118.02 Est GFR (MDRD) Af Amer 151 Est GFR (MDRD) Non-Af 125 BUN/Creatinine Ratio 24.0 H Glucose 99 Lactic Acid < 0.1 L Calcium 9.0 Total Bilirubin 0.20 Direct Bilirubin 0.05 AST 15 ALT 22 Alkaline Phosphatase 52 Total Protein 7.0 Albumin 4.0 Globulin 3.0 Lipase 131 Serum , Qual Urine Color Urine Clarity Urine pH Ur Specific [place] Urine Protein Urine Glucose (UA) Urine Ketones Urine Occult Blood Urine Nitrite Urine Bilirubin Urine Urobilinogen Ur Leukocyte Esterase Urine RBC Urine WBC Ur Squamous Epith Cells Urine Bacteria Urine Mucus 10/03/22 10/03/22 18:46 19:00 WBC RBC Hgb Hct MCV MCH MCHC RDW Std Deviation RDW Coeff of Dimitrios Plt Count MPV Immature Gran % (Auto) Neut % (Auto) Lymph % (Auto) [place] % (Auto) Eos % (Auto) Baso % (Auto) Absolute Neuts (auto) Absolute Lymphs (auto) Nucleated RBC % Sodium Potassium Chloride Carbon Dioxide Anion Gap BUN Creatinine Estim Creat Clear Calc Est GFR (MDRD) Af Amer Est GFR (MDRD) Non-Af BUN/Creatinine Ratio Glucose Lactic Acid Calcium Total Bilirubin Direct Bilirubin AST ALT Alkaline Phosphatase Total Protein Albumin Globulin Lipase Serum , Qual NEGATIVE Urine Color Yellow Urine Clarity Clear Urine pH 7.0 Ur Specific [place] 1.010 Urine Protein Negative Urine Glucose (UA) Normal Urine Ketones Negative Urine Occult Blood Negative Urine Nitrite Negative Urine Bilirubin Negative Urine Urobilinogen Normal Ur Leukocyte Esterase Negative Urine RBC 0 SEEN Urine WBC 0 SEEN Ur Squamous Epith Cells 0 SEEN Urine Bacteria 0 SEEN Urine Mucus 0 SEEN Radiography Diagnostic Testing: Clinical Impression(s) from Imaging Studies Abdomen/Pelvis CT 10/03/22 18:22 IMPRESSION: (NOT LISTED IN ORDER OF SIGNIFICANCE) There are no acute findings. 43mm right ovary cyst. ACR White Paper guidelines (Calvert, et. al. JACR 2020;17(2):248-254) suggest no follow-up is necessary. Other findings as above. Electronically Signed: Serafin Benedict MD at 20:18 EST , Treatment and Re-Evaluation Narrative: CBC was normal white count. Chemistry studies unremarkable. Lactic acid is less than 0.1. LFTs and lipase are normal. test is negative and urinalysis is normal. CT scan of the abdomen and pelvis reveals no acute findings. A right ovarian cyst is noted. On repeat evaluation patient did have recurrent pain and did require a small dose of Dilaudid and Phenergan. She has Bentyl, Zofran, and Phenergan at home to use. I will write her a short course of Percocet. She does wish to follow-up with local GI if possible as she is currently traveling to [place] in [place] for her GI coverage. I will refer her to Dr. Alva. Return instructions are given. Discharge Plan Triage Chief Complaint: Abd Pain ED Provider: Niyah Hankins Dx/Rx/DC Orders Clinical Impression: Abdominal pain Instructions: ED Abdominal Pain Unkn Cause Fem Prescriptions: New oxycodone-acetaminophen [Percocet] 5-325 mg tablet 1 tab PO Q8H PRN (Reason: pain) 3 Days Qty: 10 0RF No Action citalopram 20 mg tablet 30 mg PO DAILY Label Comments: TAKE 1 & 1/2 (ONE AND ONE-HALF) TABLETS BY MOUTH ONCE DAILY prochlorperazine maleate [Compazine] 5 mg tablet 5 mg PO TID PRN (Reason: nausea and vomiting) Qty: 14 0RF ondansetron 4 mg tablet,disintegrating 8 mg PO Q8H PRN PRN (Reason: Nausea) Qty: 20 0RF Primary Care Provider: Azael Lr Referrals: Azael Lr MD [Primary Care Provider] - Jeremiah Alva DO [Med Staff - Active Staff] - As soon as possible Disposition Disposition: Home, Self Care
[2022-10-03 18:57] LABS: Absolute Lymphocyte Count 4.14 X10^3/uL (0.83-4.51); Absolute Neutrophil Count 5.5 X10^3/uL (2.0-7.7); Basophil# 0.08 X10^3/uL; Basophil% 0.8 % (0-1); Eosinophil# 0.24 X10^3/uL; Eosinophils% 2.3 % (0-5); Hemoglobin 13.1 g/dL (12.0-15.0); Lymphocyte # 4.14 X10^3/ul (0.83-4.51); Lymphocyte % 39.3 % (19-41); Mean Corp Hgb Conc 32.8 g/dL (32-36); Mean Corpuscular Hgb 29.2 pg (27.0-32.0); Mean Corpuscular Volume 89.3 fL (81-99); Mean Platelet Vol. 9.2 fl (6.2-12.0); Monocyte# 0.53 X10^3/uL; NRBC Flagged by Analyzer 0 % (0-5); Neutrophil % 52.2 % (47-70); Platelet Count 375 K/mm3 (150-450); RBC Distribution Width SD 42.7 fl (35.1-43.9); Red Blood Count 4.48 M/mm3 (4.2-5.4); White Blood Count 10.5 K/mm3 (4.4-11.0)
[2022-10-03] MEDS: Morphine 4 MG/ML Syringe IV (18:58)
[2022-10-03] MEDS: Ondansetron 4 MG/2 ML Vial IV (18:58)
[2022-10-03] MEDS: 0.9% Normal Saline 1,000 ML 1000 ML IV (18:58)
[2022-10-03 19:08] LABS: Internal QC Validated? YES +Cl - CLEAR BKGD; Pregnancy, Serum, hCG Quali. NEGATIVE Negative
[2022-10-03 19:13] LABS: AST(SGOT) 15 U/L (15-37); Alanine Aminotransfer ALT/SGPT 22 U/L (13-56); Alkaline Phosphatase 52 U/L (45-117); Anion Gap 6 (5-15); BUN 14 mg/dL (7-18); Bilirubin, Direct 0.05 mg/dL (0.00-0.30); Chloride 107 mmol/L (98-107); Creatinine, Serum 0.58 mg/dL (0.55-1.02); EST Glomerular Filtration Rate 125 mL/min (>60); Est Glom Filt Rate - Afr Amer 151 mL/min (>60); Estimated Creatinine Clearance 118.02 ml/min; Glucose 99 mg/dL (74-106); Lipase 131 U/L (73-393); Potassium 3.9 mmol/L (3.5-5.1); Sodium Level 140 mmol/L (136-145)
[2022-10-03 19:16] LABS: Bacteria 0 SEEN /hpf (None Seen); Mucous, Urine 0 SEEN /hpf (<or=2+); Red Blood Cells-Urine 0 SEEN /hpf (0-5); Squamous Epithelial Cells - UA 0 SEEN /hpf (5-10); White Blood Cells 0 SEEN /hpf (0-5)
[2022-10-03 19:17] LABS: Color, Urine Yellow (Yellow); Glucose, Dipstick Normal (Normal); Ketone-Dipstick Negative (Negative); Leukocyte Esterase-Dipstick Negative /ul (Negative); Nitrite-Dipstick Negative (Negative); Occult Blood-Urine Negative /ul (Negative); Protein-Dipstick Negative (Negative); Urine Bilirubin Dipstick Negative (Negative); Urine Clarity Clear (Clear); Urine Urobilinogen Normal (Normal)
[2022-10-03 19:32] LABS: Lactic Acid < 0.1 mmol/L (0.4-1.9)
[2022-10-03] MEDS: HYDROmorphone 0.5 MG/0.5 ML SYRINGE IV (20:22)
[2022-10-03] MEDS: 0.9% Normal Saline 1,000 ML 150 ML IV (20:22)
[2022-10-03] MEDS: proMETHazine 25 MG/ML Syringe 12.5 MG IM (20:22)
[2022-10-03 20:58] VITALS: BP 103/69; PULSE 86; RESP 15; O2SAT 99
== END 2022-10-03 21:00 | disposition home or self-care (01) ==
PROVIDERS: Emergency Provider Emergency Medicine; PCP Family Medicine; Visit Provider Emergency Medicine
DX: R10.9 Unspecified abdominal pain (principal); K50.90 Crohn's disease, unspecified, without complications; F17.200 Nicotine dependence, unspecified, uncomplicated; Z79.899 Other long term (current) drug therapy
CPT/HCPCS: 74177; 80048; 80076; 81001; 83605; 83690; 84703; 85025; 96361; 96372; 96374; 96375; 99282; J7030; Q9967; A4216; J2405

== ENCOUNTER 2022-11-12 18:01 | Emergency (ER) | payer OTHER, SELFPAY ==
[2022-11-12 18:02] VITALS: BP 108/66; PULSE 81; RESP 14; TEMP 36.3; O2SAT 98; BMI 25.2
--- NOTE | 2022-11-12 19:14 | EDS_ITS ---
HPI History of Present Illness Chief Complaint: Nausea/Vomiting Informant: patient Onset/Context/Timing Onset: Yesterday Current Severity: Moderate Maximum Severity: Severe Narrative Narrative: Patient present secondary to generalized abdominal pain with diarrhea that started last night. Today she has had some vomiting as well. She is a history of Crohn's and this is consistent with her prior flares. She denies fever or chills. She has had endoscopy procedures before but no prior abdominal surgeries. [facility] Medical History Anxiety Colitis Crohns disease Depression Stephanie Tobar infection Gestational diabetes Left ovarian cyst Sleep apnea Home Medications citalopram 20 mg tablet 30 mg PO DAILY 07/12/21 [History Last Taken Unknown] prochlorperazine maleate 5 mg tablet (Compazine) 5 mg PO TID PRN nausea and vomiting #14 tabs 08/14/22 [Rx Last Taken Unknown] ondansetron 4 mg disintegrating tablet 8 mg PO Q8H PRN PRN Nausea #20 tabs 09/02/22 [Rx Last Taken Unknown] oxycodone-acetaminophen 5 mg-325 mg tablet (Percocet) 1 tab PO Q8H PRN pain 3 days #10 tabs 10/03/22 [Rx Last Taken Unknown] oxycodone-acetaminophen 5 mg-325 mg tablet (Percocet) 1 tab PO Q8H PRN pain 3 days #10 tabs 11/12/22 [Rx Last Taken Unknown] promethazine 25 mg rectal suppository 25 mg NV Q6H PRN nausea and vomiting #12 ea 11/12/22 [Rx Last Taken Unknown] Allergy/AdvReac Type Severity Reaction Status Date / Time nectarine Allergy Angioedema Verified 11/12/22 18:03 metoclopramide [From Reglan] AdvReac Other Verified 11/12/22 18:03 Family History Mother Heart disease Pacemaker Grandfather Diabetes Grandmother Diabetes Surgical History History of colonoscopy (~2017) History of colonoscopy (~2017) History of esophagogastroduodenoscopy (EGD) (~2018) History of wisdom tooth extraction Social History household members: spouse Smoking Status: Light Smoker (<10/day) alcohol intake: never substance use type: does not use caffeine: Yes what type of physical activity do you participate in: walking seatbelt use: always do you feel safe at home: Yes additional social history: [employer] ROS ROS ED Constitutional Constitutional ED: Denies chills or fever(s) Eyes Eyes: Denies change in vision or discharge from eye(s) ENT ENT ED: Denies discharge from eye(s), rhinorrhea or sore throat Cardiovascular Cardiovascular: Denies chest pain or palpitations Respiratory/Chest Respiratory/Chest: Denies cough or dyspnea Gastrointestinal Gastrointestinal: Reports abdominal pain, diarrhea, nausea and vomiting Genitourinary Genitourinary ED: Denies dysuria Musculoskeletal Musculoskeletal: Denies back pain or extremity pain Integumentary Denies Abrasions or rash Neurologic Neurologic: Denies headache(s) or weakness Psychiatric Psychiatric: Denies anxiety or depression Allergic/Immunologic Allergic/Immunologic ED: Denies lip swelling or urticaria EXAM Physical Exam Const Vital Signs: 11/12/22 18:02 Temperature 97.4 F L Temperature Source Temporal Pulse Rate 81 Respiratory Rate 14 Blood Pressure 108/66 Blood Pressure Mean 80 Pulse Ox 98 Oxygen Delivery Method Room Air Positive well nourished and well developed General Appearance ED: well developed HEENT Reports normocephalic and head/scalp atraumatic Eyes PERRL and EOMs intact bilaterally Neck supple Chest Wall inspection of chest normal and palpation of chest normal Resp normal respiratory effort and clear to auscultation bilaterally Cardio regular rate and regular rhythm GI GI Narrative: Diffuse abdominal tenderness palpation. No guarding or rebound. Hypoactive bowel sounds. Palpation: soft Extremity normal to inspection Neuro oriented x3 and no sensory deficits noted Sensorium / Orientation: alert Motor Exam: strength 5/5 throughout Psych mental status grossly normal Skin no rashes or lesions noted MDM MDM MDM Narrative Medical decision making narrative: Patient is given morphine and Phenergan here along with IV fluids. Lab work obtained to evaluate for leukocytosis, anemia, electrolyte derangement. test obtained. Given her epigastric pain that radiates up around the left breast EKG was performed. Lab Data Attestation: I reviewed the patient's lab results. Labs: Laboratory Results - last 24 hr 11/12/22 11/12/22 11/12/22 19:15 19:15 19:15 WBC 10.4 RBC 4.59 Hgb 13.6 Hct 40.8 MCV 88.9 MCH 29.6 MCHC 33.3 RDW Std Deviation 43.0 RDW Coeff of Dimitrios 13.2 Plt Count 412 MPV 9.4 Immature Gran % (Auto) 0.300 Neut % (Auto) 44.8 L Lymph % (Auto) 44.7 H [place] % (Auto) 6.5 Eos % (Auto) 3.0 Baso % (Auto) 0.7 Absolute Neuts (auto) 4.7 Absolute Lymphs (auto) 4.63 H Nucleated RBC % 0 Sodium 140 Potassium 3.4 L Chloride 109 H Carbon Dioxide 24.0 Anion Gap 7 BUN 13 Creatinine 0.66 Estim Creat Clear Calc 103.71 Est GFR (MDRD) Af Amer 130 Est GFR (MDRD) Non-Af 108 BUN/Creatinine Ratio 19.6 Glucose 100 Calcium 9.4 Total Bilirubin 0.60 Direct Bilirubin 0.10 AST 13 L ALT 17 Alkaline Phosphatase 56 Total Protein 7.5 Albumin 4.2 Globulin 3.3 Lipase 119 Serum , Qual NEGATIVE EKG Initial EKG: Attestation: I personally reviewed and interpreted this EKG as follows: Interpretation: Sinus Rhythm (Sinus at 61 with no acute ischemia.) Differential Diagnosis Abdominal Pain: Appendicitis Reason(s) appendicitis less likely: Positive for clinical exam does not supportclinical exam does not support, Pancreatitis Reason(s) Pancreatitis less likely: clinical exam does not support and NL lab values and Bowel obstruction Reason(s) bowel obstruction less likely: bowel sounds present on exam and other (Passing stool) Treatment and Re-Evaluation :: Repeat evaluation patient is improved. She is tolerating ice chips here. I did review her last visit and she had imaging performed at that time. Given she had a recent CT scan I do not feel repeat imaging is needed today. She has follow- up scheduled with GI. Her CBC and chemistry studies are normal here other than a slightly low potassium at 3.4. Lipase is normal. Patient be given prescription for Phenergan suppositories as well as a few Percocet for breakthrough pain. Return instructions given. Discharge Plan Triage Chief Complaint: Nausea/Vomiting ED Provider: Niyah Hankins Dx/Rx/DC Orders Clinical Impression: Abdominal pain, Vomiting Instructions: ED Abdominal Pain Unkn Cause Fem, ED Vomiting (Adult) Prescriptions: New promethazine 25 mg suppository 25 mg NV Q6H PRN (Reason: nausea and vomiting) Qty: 12 0RF oxycodone-acetaminophen [Percocet] 5-325 mg tablet 1 tab PO Q8H PRN (Reason: pain) 3 Days Qty: 10 0RF No Action citalopram 20 mg tablet 30 mg PO DAILY Label Comments: TAKE 1 & 1/2 (ONE AND ONE-HALF) TABLETS BY MOUTH ONCE DAILY prochlorperazine maleate [Compazine] 5 mg tablet 5 mg PO TID PRN (Reason: nausea and vomiting) Qty: 14 0RF ondansetron 4 mg tablet,disintegrating 8 mg PO Q8H PRN PRN (Reason: Nausea) Qty: 20 0RF oxycodone-acetaminophen [Percocet] 5-325 mg tablet 1 tab PO Q8H PRN (Reason: pain) 3 Days Qty: 10 0RF Primary Care Provider: Azael Lr Referrals: Azael Lr MD [Primary Care Provider] - Jeremiah Alva DO [Med Staff - Active Staff] - Disposition Disposition: Home, Self Care
[2022-11-12] MEDS: proMETHazine 25 MG/ML Syringe 12.5 MG IM (19:24)
[2022-11-12] MEDS: Morphine 4 MG/ML Syringe IV ×2 (19:24→21:16)
[2022-11-12] MEDS: 0.9% Normal Saline 1,000 ML 1000 ML IV (19:24)
--- NOTE | 2022-11-12 19:27 | EKG12_ITS ---
Test Reason : DYSRHYTHMIA Blood Pressure : / mmHG Vent. Rate : 061 BPM Atrial Rate : 061 BPM P-R Int : 136 ms QRS Dur : 096 ms QT Int : 414 ms P-R-T Axes : 075 069 051 degrees QTc Int : 416 ms Sinus rhythm Confirmed by ALEKS CLEMONS, WON ([id number]), editor managing newspaper YONIS MACKAY ([id number]) on 11/14/2022 9:49:42 AM Referred By: GENEVIEVE Confirmed By:WON FINK MD
[2022-11-12 19:28] LABS: Absolute Lymphocyte Count 4.63 X10^3/uL (0.83-4.51); Absolute Neutrophil Count 4.7 X10^3/uL (2.0-7.7); Basophil# 0.07 X10^3/uL; Basophil% 0.7 % (0-1); Eosinophil# 0.31 X10^3/uL; Hematocrit 40.8 % (37-47); Hemoglobin 13.6 g/dL (12.0-15.0); Lymphocyte # 4.63 X10^3/ul (0.83-4.51); Lymphocyte % 44.7 % (19-41); Mean Corp Hgb Conc 33.3 g/dL (32-36); Mean Corpuscular Hgb 29.6 pg (27.0-32.0); Mean Corpuscular Volume 88.9 fL (81-99); Mean Platelet Vol. 9.4 fl (6.2-12.0); Monocyte# 0.67 X10^3/uL; Monocyte% 6.5 % (0-10); NRBC Flagged by Analyzer 0 % (0-5); Neutrophil # 4.65 X10^3/uL (2.7-7.7); Neutrophil % 44.8 % (47-70); Platelet Count 412 K/mm3 (150-450); RBC Distribution Width CV 13.2 % (11.6-14.6); Red Blood Count 4.59 M/mm3 (4.2-5.4); White Blood Count 10.4 K/mm3 (4.4-11.0)
[2022-11-12 19:35] LABS: Internal QC Validated? YES +Cl - CLEAR BKGD; Pregnancy, Serum, hCG Quali. NEGATIVE Negative
[2022-11-12 19:45] LABS: AST(SGOT) 13 U/L (15-37); Alanine Aminotransfer ALT/SGPT 17 U/L (13-56); Albumin, Serum 4.2 g/dL (3.2-5.0); Alkaline Phosphatase 56 U/L (45-117); Anion Gap 7 (5-15); BUN 13 mg/dL (7-18); BUN/Creat Ratio 19.6 RATIO (10-20); Calcium,Total 9.4 mg/dL (8.5-10.1); Chloride 109 mmol/L (98-107); Creatinine, Serum 0.66 mg/dL (0.55-1.02); EST Glomerular Filtration Rate 108 mL/min (>60); Est Glom Filt Rate - Afr Amer 130 mL/min (>60); Estimated Creatinine Clearance 103.71 ml/min; Globulin 3.3 g/dL (2.2-4.2); Glucose 100 mg/dL (74-106); Lipase 119 U/L (73-393); Potassium 3.4 mmol/L (3.5-5.1); Protein, Total 7.5 g/dL (6.4-8.2); Sodium Level 140 mmol/L (136-145)
== END 2022-11-12 21:21 | disposition home or self-care (01) ==
PROVIDERS: Emergency Provider Emergency Medicine; PCP Family Medicine; Visit Provider Emergency Medicine
DX: R10.84 Generalized abdominal pain (principal); R11.2 Nausea with vomiting, unspecified; R19.7 Diarrhea, unspecified; Z79.899 Other long term (current) drug therapy; F17.200 Nicotine dependence, unspecified, uncomplicated
CPT/HCPCS: 80048; 80076; 83690; 84703; 85025; 93005; 96361; 96372; 96374; 96376; 99283; J7030; A4216

== ENCOUNTER 2022-11-22 02:16 | Emergency (ER) | payer OTHER, SELFPAY ==
[2022-11-22 02:17] VITALS: BP 128/74; PULSE 106; RESP 18; TEMP 36.1; O2SAT 99; BMI 27.3
[2022-11-22] MEDS: Ondansetron 4 MG/2 ML Vial IV (02:44)
[2022-11-22] MEDS: HYDROmorphone 1 MG/ML Syringe IV (02:45)
[2022-11-22] MEDS: Diphenoxylate/Atrop 1 Tablet 2 TABLET PO (02:46)
[2022-11-22 02:49] LABS: Absolute Lymphocyte Count 2.14 X10^3/uL (0.83-4.51); Absolute Neutrophil Count 13.6 X10^3/uL (2.0-7.7); Basophil# 0.07 X10^3/uL; Basophil% 0.4 % (0-1); Eosinophil# 0.16 X10^3/uL; Hematocrit 42.9 % (37-47); Hemoglobin 14.4 g/dL (12.0-15.0); Lymphocyte # 2.14 X10^3/ul (0.83-4.51); Lymphocyte % 12.7 % (19-41); Mean Corp Hgb Conc 33.6 g/dL (32-36); Mean Corpuscular Hgb 29.5 pg (27.0-32.0); Mean Corpuscular Volume 87.9 fL (81-99); Mean Platelet Vol. 9.4 fl (6.2-12.0); Monocyte# 0.81 X10^3/uL; Monocyte% 4.8 % (0-10); NRBC Flagged by Analyzer 0 % (0-5); Neutrophil # 13.59 X10^3/uL (2.7-7.7); Neutrophil % 80.7 % (47-70); Platelet Count 372 K/mm3 (150-450); RBC Distribution Width CV 12.7 % (11.6-14.6); RBC Distribution Width SD 40.6 fl (35.1-43.9); Red Blood Count 4.88 M/mm3 (4.2-5.4); White Blood Count 16.8 K/mm3 (4.4-11.0)
[2022-11-22] MEDS: 0.9% Normal Saline 1,000 ML 999 ML IV ×2 (02:49→04:09)
[2022-11-22 03:14] LABS: AST(SGOT) 11 U/L (15-37); Alanine Aminotransfer ALT/SGPT 17 U/L (13-56); Albumin, Serum 4.2 g/dL (3.2-5.0); Alkaline Phosphatase 53 U/L (45-117); Anion Gap 9 (5-15); BUN 22 mg/dL (7-18); BUN/Creat Ratio 35.7 RATIO (10-20); Bilirubin, Direct 0.08 mg/dL (0.00-0.30); Calcium,Total 8.9 mg/dL (8.5-10.1); Chloride 109 mmol/L (98-107); Creatinine, Serum 0.62 mg/dL (0.55-1.02); EST Glomerular Filtration Rate 117 mL/min (>60); Est Glom Filt Rate - Afr Amer 142 mL/min (>60); Globulin 3.1 g/dL (2.2-4.2); Glucose 120 mg/dL (74-106); Lipase 188 U/L (73-393); Magnesium 2.2 mg/dL (1.6-2.6); Protein, Total 7.3 g/dL (6.4-8.2); Sodium Level 141 mmol/L (136-145)
--- NOTE | 2022-11-22 03:49 | CT_ITS ---
STUDY: CT ABDOMEN AND PELVIS WITH CONTRAST REASON FOR EXAM: Female, 36 years old. Right-sided abdominal pain. Nausea vomiting and diarrhea. Elevated WBC. TECHNIQUE: IV Contrast: IV 100mL [id number] Enteric contrast: None administered. Axial images obtained. Coronal and sagittal reformatted images provided. Individualized dose optimization techniques were used for this CT. COMPARISON: 10/03/2022 CT abdomen pelvis. FINDINGS: Partially visualized lower chest: Lung bases unremarkable. Liver: No concerning lesions. Gallbladder and biliary tree: No visible gallstones. No pericholecystic inflammation. No biliary ductal dilation. Pancreas: No pancreatic lesions or inflammation. Spleen: Normal size, no splenic lesions. Adrenal glands: No concerning masses. Kidneys and ureters: No hydronephrosis or renal stones. No concerning masses. No ureteral dilation. Bowel: Normal appendix. No obstruction or inflammation of the bowel. Fluid throughout the large and small bowel with no formed stool. Urinary bladder: No stones or wall thickening. Reproductive:Normal uterus and ovaries. Small cyst physiologic right ovarian cysts. Vascular: No abdominal aortic aneurysm. Patent portal, mesenteric and systemic veins. Retroperitoneal and peritoneal spaces: No ascites or free air. No retroperitoneal lesions. Osseous: No acute osseous abnormality. Abdominal and pelvic wall: No concerning findings. Any findings described in the findings sections and not included in the impression are incidental and do not require imaging follow-up. CT/Abdomen/Pelvis W IV Cont ONLY IMPRESSION: Evidence of diarrheal illness with fluid throughout the bowel and no formed stool. No other acute or concerning findings. Electronically Signed: Steven Hamilton MD at 5:05 EDT Reading Location ID and State: [facility] / [place] Tel , Service support ,
--- NOTE | 2022-11-22 03:53 | EDS_ITS ---
HPI History of Present Illness Chief Complaint: Nausea/Vomiting Narrative Narrative: Patient is a 36-year-old female with past medical history of Crohn's disease who currently is not on any type of maintenance therapy for it. She reports that her son was recently sick with nausea vomiting diarrhea. She reports beginning Saturday afternoon she developed generalized abdominal pain with multiple bouts of vomiting and diarrhea. She states that as time passed she continued to have symptoms despite taking [id number] medications and she is concerned about dehydration as well as electrolyte disturbance and with this comes in for evaluation. She states has been no recent travel outside the country or livestock exposure or antibiotic use. [facility] Medical History Anxiety Colitis Crohns disease Depression Stephanie Tobar infection Gestational diabetes Left ovarian cyst Sleep apnea Home Medications citalopram 20 mg tablet 30 mg PO DAILY 07/12/21 [History Last Taken Unknown] ondansetron 4 mg disintegrating tablet 8 mg PO Q8H PRN PRN Nausea #20 tabs 09/02/22 [Rx Last Taken Unknown] promethazine 25 mg rectal suppository 25 mg AL Q6H PRN nausea and vomiting #12 ea 11/12/22 [Rx Last Taken Unknown] diphenoxylate-atropine 2.5 mg-0.025 mg tablet (Lomotil) 1 tab PO 4X/DAY PRN PRN diarrhea 5 days #20 tabs 11/22/22 [Rx Last Taken Unknown] oxycodone-acetaminophen 5 mg-325 mg tablet (Percocet) 1 tab PO Q6H PRN pain 3 days #12 tabs 11/22/22 [Rx Last Taken Unknown] Allergy/AdvReac Type Severity Reaction Status Date / Time nectarine Allergy Angioedema Verified 11/12/22 18:03 metoclopramide [From Reglan] AdvReac Other Verified 11/12/22 18:03 Family History Mother Heart disease Pacemaker Grandfather Diabetes Grandmother Diabetes Surgical History History of colonoscopy (~2017) History of colonoscopy (~2017) History of esophagogastroduodenoscopy (EGD) (~2018) History of wisdom tooth extraction Social History household members: spouse Smoking Status: Light Smoker (<10/day) alcohol intake: never substance use type: does not use caffeine: Yes what type of physical activity do you participate in: walking seatbelt use: always do you feel safe at home: Yes additional social history: [employer] ROS ROS ED Constitutional Constitutional ED: Denies chills or fever(s) ENT ENT ED: Denies sore throat Cardiovascular Cardiovascular: Denies chest pain Respiratory/Chest Respiratory/Chest: Denies cough or dyspnea Gastrointestinal Gastrointestinal: Reports abdominal pain, diarrhea, nausea and vomiting Genitourinary Genitourinary ED: Denies dysuria Musculoskeletal Musculoskeletal: Reports myalgias Integumentary Denies rash Neurologic Neurologic: Denies headache(s) Hematologic/Lymphatic Hematologic/Lymphatic: Denies easy bleeding or easy bruising EXAM Physical Exam Const Vital Signs: 11/22/22 02:17 11/22/22 05:01 Temperature 97.0 F L Temperature Source Temporal Pulse Rate 106 H Respiratory Rate 18 16 Blood Pressure 128/74 H Blood Pressure Mean 92 Pulse Ox 99 Oxygen Delivery Method Room Air Positive well nourished and well developed General Appearance ED: well developed HEENT Reports moist mucous membranes HEENT Narrative: No signs of infection in the posterior pharynx Eyes PERRL and EOMs intact bilaterally General Eye ED: Negative for scleral icterus Neck supple Neck Narrative: No nuchal rigidity or meningeal signs Resp normal respiratory effort and clear to auscultation bilaterally Cardio regular rate and regular rhythm Rate: other Other Details: Radial pulses are plus 2 out of 4 bilaterally are equal and symmetric GI non-distended GI Narrative: Abdomen is soft and nondistended with hyperactive bowel sounds. There is mild diffuse pain with palpation without voluntary guarding or rigidity Auscultation: hyperactive bowel sounds Palpation: soft Back/Spine no CVA tenderness Extremity normal to inspection Neuro oriented x3 and CN's II-XII intact bilaterally Sensorium / Orientation: alert Psych Psych Narrative: Patient has a tearful/anxious affect Skin no rashes or lesions noted and skin turgor normal General Skin Exam: Negative for jaundice MDM MDM MDM Narrative Medical decision making narrative: Patient presented to the ER afebrile with a soft nonsurgical abdomen. Her history of a for member being sick with similar symptoms than her is coming on is consistent with a viral gastroenteritis. However as this could be acute pancreatitis versus biliary colic or a Crohn's exacerbation I did elect to perform a basic work-up. Labs reveal white count of 16.8 and kidney function is normal but her potassium is now dropped to 3. She was given 2 L of IV fluid Zofran and Compazine and had no further bouts of vomiting. She also was given Lomotil and this helped reduce her excessive loose stool/diarrhea. CT scan revealed thickened inflamed intestines which are nonspecific in nature without acute obstruction or perforation. Therefore at this time based on her history and exam I feel this is most likely a viral gastroenteritis that is causing mild exacerbation of her Crohn's disease. She does have mild hypokalemia but this has been replaced in the ER and I do not feel there is need for admission based on the value of a 3. As she is not having perforation or abscess or obstruction and symptoms have improved with treatment there is no need for admission and she is otherwise safe for discharge History & Record Review Discussion w/independent historian: Patient Lab Data Attestation: I reviewed the patient's lab results. Labs: Laboratory Results - last 24 hr 11/22/22 11/22/22 11/22/22 02:40 02:40 02:40 WBC 16.8 H RBC 4.88 Hgb 14.4 Hct 42.9 MCV 87.9 MCH 29.5 MCHC 33.6 RDW Std Deviation 40.6 RDW Coeff of Dimitrios 12.7 Plt Count 372 MPV 9.4 Immature Gran % (Auto) 0.400 Neut % (Auto) 80.7 H Lymph % (Auto) 12.7 L [place] % (Auto) 4.8 Eos % (Auto) 1.0 Baso % (Auto) 0.4 Absolute Neuts (auto) 13.6 H Absolute Lymphs (auto) 2.14 Nucleated RBC % 0 Sodium 141 Potassium 3.0 L Chloride 109 H Carbon Dioxide 23.0 Anion Gap 9 BUN 22 H Creatinine 0.62 Estim Creat Clear Calc 110.40 Est GFR (MDRD) Af Amer 142 Est GFR (MDRD) Non-Af 117 BUN/Creatinine Ratio 35.7 H Glucose 120 H Calcium 8.9 Magnesium 2.2 Total Bilirubin 0.40 Direct Bilirubin 0.08 AST 11 L ALT 17 Alkaline Phosphatase 53 Total Protein 7.3 Albumin 4.2 Globulin 3.1 Lipase 188 Serum , Qual NEGATIVE Radiography Diagnostic Testing: Clinical Impression(s) from Imaging Studies Abdomen/Pelvis CT 11/22/22 03:49 IMPRESSION: Evidence of diarrheal illness with fluid throughout the bowel and no formed stool. No other acute or concerning findings. Electronically Signed: Steven Hamilton MD at 5:05 EDT Reading Location ID and State: [address] [place] [address] Tel , Service support , Discharge Plan Triage Chief Complaint: Nausea/Vomiting ED Provider: Gaudencio Nair Dx/Rx/DC Orders Clinical Impression: Nausea vomiting and diarrhea, History of Crohn's disease, Acute hypokalemia Instructions: Hypokalemia Dc, ED Gastroenteritis, Viral (Adult) Prescriptions: New diphenoxylate-atropine [Lomotil] 2.5-0.025 mg tablet 1 tab PO 4X/DAY PRN PRN (Reason: diarrhea) 5 Days Qty: 20 0RF oxycodone-acetaminophen [Percocet] 5-325 mg tablet 1 tab PO Q6H PRN (Reason: pain) 3 Days Qty: 12 0RF No Action citalopram 20 mg tablet 30 mg PO DAILY Label Comments: TAKE 1 & 1/2 (ONE AND ONE-HALF) TABLETS BY MOUTH ONCE DAILY ondansetron 4 mg tablet,disintegrating 8 mg PO Q8H PRN PRN (Reason: Nausea) Qty: 20 0RF promethazine 25 mg suppository 25 mg AL Q6H PRN (Reason: nausea and vomiting) Qty: 12 0RF Primary Care Provider: Azael Lr Referrals: Azael Lr MD [Primary Care Provider] - Activity Restrictions/Additional Instructions: Your work-up indicates you have a viral stomach infection which will last anywhere from 1 day to 7 with the average being 3 days. Keep yourself well- hydrated and use your home Phenergan and Zofran to control nausea and vomiting. Please try and eat a potassium rich diet for the next few days as your value was low today on laboratory studies and return to the ER should you have any further concerns Disposition Disposition: Home, Self Care
[2022-11-22] MEDS: Potassium Chloride 10mEq/100mL 10 MEQ/100 ML IV.SOLN. 100 MEQ IV BOLUS ×2 (04:09→05:33)
[2022-11-22] MEDS: Potassium Chloride Oral Tablet 20 MEQ 40 MEQ PO (04:14)
[2022-11-22] MEDS: proCHLORPERazine 10 MG/2 ML Vial IV (04:15)
[2022-11-22 04:17] LABS: Internal QC Validated? YES +Cl - CLEAR BKGD; Pregnancy, Serum, hCG Quali. NEGATIVE Negative
[2022-11-22] MEDS: HYDROmorphone 0.5 MG/0.5 ML SYRINGE IV (04:19)
[2022-11-22 05:01] VITALS: RESP 16
[2022-11-22] MEDS: oxyCODONE 5 MG Tablet 10 MG PO (06:35)
[2022-11-22 06:38] VITALS: BP 116/50; PULSE 78; RESP 16
== END 2022-11-22 06:39 | disposition home or self-care (01) ==
PROVIDERS: Emergency Provider Emergency Medicine; PCP Family Medicine; Visit Provider Emergency Medicine
DX: R11.2 Nausea with vomiting, unspecified (principal); R19.7 Diarrhea, unspecified; E87.6 Hypokalemia; F17.200 Nicotine dependence, unspecified, uncomplicated; Z87.19 Personal history of other diseases of the digestive system
CPT/HCPCS: 74177; 80048; 80076; 83690; 83735; 84703; 85025; 96365; 96366; 96375; 96376; 99283; J7030; Q9967; A4216; J2405

== ENCOUNTER 2023-02-04 17:48 | Emergency (ER) | payer OTHER, SELFPAY ==
[2023-02-04 17:48] VITALS: BP 116/65; PULSE 87; RESP 14; TEMP 36.1; O2SAT 99; BMI 28.5
--- NOTE | 2023-02-04 18:19 | EDS_ITS ---
HPI History of Present Illness Chief Complaint: Nausea/Vomiting/Diarrhea Informant: patient Narrative Narrative: Patient presents with nausea vomiting diarrhea and abdominal cramps. Patient states she has a history of Crohn's disease. She has been on several medicines for this but nothing really work without causing significant side effects. Therefore she is currently on nothing for Crohn's including no Biologics. Her only medicine currently is citalopram which she has been on a long time. She denies any abdominal surgery including none for Crohn's. She states just today she started with nausea vomiting and watery diarrhea. No blood is seen. No fevers or chills. She does have abdominal cramping that is diffuse in different areas but its more in the right lower quadrant. But she states that is the typical spot where it hurts more. She has had endoscopies both upper and lower and has had these about every year. She is currently seeing Dr. Jacob in the [facility] area. She is pending some further testing at [facility]. She also was just recently in [place] and is concerned she may have caught some virus down there or eaten something wrong as the symptoms came on relatively quickly. It started with nausea vomiting diarrhea and then progressed to some cramping. Nothing really makes it better but she has no meds at home to help with nausea or vomiting. [facility] Medical History Anxiety Colitis Crohns disease Depression Stephanie Tobar infection Gestational diabetes Left ovarian cyst Sleep apnea Home Medications citalopram 20 mg tablet 30 mg PO DAILY 07/12/21 [History Last Taken Unknown] ondansetron 4 mg disintegrating tablet 8 mg PO Q8H PRN PRN Nausea #20 tabs 09/02/22 [Rx Last Taken Unknown] promethazine 25 mg rectal suppository 25 mg VA Q6H PRN nausea and vomiting #12 ea 11/12/22 [Rx Last Taken Unknown] diphenoxylate-atropine 2.5 mg-0.025 mg tablet (Lomotil) 1 tab PO 4X/DAY PRN PRN diarrhea 5 days #20 tabs 11/22/22 [Rx Last Taken Unknown] oxycodone-acetaminophen 5 mg-325 mg tablet (Percocet) 1 tab PO Q6H PRN pain 3 days #12 tabs 11/22/22 [Rx Last Taken Unknown] hydrocodone-acetaminophen 5-325mg 5mg-325mg 1 tab PO Q6H PRN PRN Pain 3 days #10 TABLETS 02/04/23 [Rx Last Taken Unknown] ondansetron 4 mg disintegrating tablet 4 mg PO Q8H PRN PRN Nausea #10 tabs 02/04/23 [Rx Last Taken Unknown] promethazine 25 mg tablet 25 mg PO Q6H PRN PRN Nausea #10 TABLETS 02/04/23 [Rx Last Taken Unknown] Allergy/AdvReac Type Severity Reaction Status Date / Time nectarine Allergy Angioedema Verified 02/04/23 17:48 metoclopramide [From Reglan] AdvReac Other Verified 02/04/23 17:48 Family History Mother Heart disease Pacemaker Grandfather Diabetes Grandmother Diabetes Surgical History History of colonoscopy (~2017) History of colonoscopy (~2017) History of esophagogastroduodenoscopy (EGD) (~2017) History of wisdom tooth extraction Social History household members: spouse Smoking Status: Light Smoker (<10/day) alcohol intake: never substance use type: does not use caffeine: Yes what type of physical activity do you participate in: walking seatbelt use: always do you feel safe at home: Yes additional social history: [employer] ROS ROS ED ROS Narrative A complete review of systems was performed and is negative except as documented in the history of present illness. Some specific details below. Constitutional: No recent fevers or chills. Slight malaise. EYE: No visual complaints or pain. ENT: No difficulty swallowing. No swelling. No pain. CV: No chest pain or palpitations. Respiratory: No dyspnea. No hemoptysis. No difficulty taking breaths. GI: Please see history of present illness. : No frequency dysuria or hematuria. Musculoskeletal: No recent trauma. No pains. Skin: No rash. Nondiaphoretic. Neuro: No weakness or numbness. Endocrine: No polyuria or polydipsia. EXAM Physical Exam Narrative Exam Narrative: CONSTITUTIONAL: Patient is nontoxic in appearance. The patient looks comfortable. HEENT: No notable trauma. Mucous membranes do still look moist. No sinus tenderness. No indication of pain with swallowing. EYES: No conjunctival injection. No proptosis. CARDIOVASCULAR: Regular rate. Regular rhythm. No notable murmur. No JVD. RESPIRATORY: No respiratory distress. Breathing is unlabored. No wheezes. No rhonchi. No rales. No pain with a deep breath. GASTROINTESTINAL: Not distended. Bowel sounds are normal. Mild but nonfocal tenderness. No guarding. No rebound. No palpable mass. No bruit. Although she states she has more pain in the right lower quadrant there is not notable tenderness there. I do not feel fullness or mass. GENITOURINARY: No tenderness over the bladder. No CVA tenderness. MUSCULOSKELETAL: Atraumatic. No peripheral edema. No cord. No tenderness along the deep venous system. No asymmetry. NEUROLOGICAL: Patient is alert and appropriate. No focal deficit noted. SKIN: No noted rashes. No diaphoresis. PSYCHIATRIC: Patient is calm. Mood is appropriate. Const Vital Signs: 02/04/23 17:48 Temperature 97 F L Temperature Source Temporal Pulse Rate 87 Respiratory Rate 14 Blood Pressure 116/65 Blood Pressure Mean 82 Pulse Ox 99 Oxygen Delivery Method Room Air MDM MDM MDM Narrative Medical decision making narrative: Patient CBC shows mild elevation white count at 11.9. She has had this up in that range several times before. Patient's electrolytes show no marked abnormalities. This time her potassium is normal. Her liver function test are overall normal. Serum is negative. Her urinalysis is normal. Patient's recheck. She is feeling better. She still has some pain and some nausea but overall better. She states she has had this before. She has responded well to steroids. I will give her IV steroids here and steroids to go. I will write for some meds for pain and nausea. We discussed reasons to return. We also discussed the consideration of a CAT scan but she has had 6 CAT scans in the last few years. She would like to avoid further scanning if not required and since she is improving not notably tender I do not think we need to scan at this time. Certainly if she worsens develops more pain fevers or other symptoms she should return and we may need to look further. Lab Data Labs: Laboratory Results - last 24 hr 0602/04/23 02/04/23 18:00 18:00 18:00 WBC 11.9 H RBC 4.35 Hgb 13.0 Hct 38.7 MCV 89.0 MCH 29.9 MCHC 33.6 RDW Std Deviation 46.3 H RDW Coeff of Dimitrios 14.2 Plt Count 405 MPV 9.9 Immature Gran % (Auto) 0.600 Neut % (Auto) 55.7 Lymph % (Auto) 33.6 [place] % (Auto) 7.0 Eos % (Auto) 2.3 Baso % (Auto) 0.8 Absolute Neuts (auto) 6.6 Absolute Lymphs (auto) 4.00 Nucleated RBC % 0 Sodium 141 Potassium 3.8 Chloride 111 H Carbon Dioxide 25.0 Anion Gap 5 BUN 12 Creatinine 0.59 Estim Creat Clear Calc 114.92 Est GFR (MDRD) Af Amer 150 Est GFR (MDRD) Non-Af 124 BUN/Creatinine Ratio 20.4 H Glucose 89 Calcium 9.0 Total Bilirubin 0.30 AST 12 L ALT 21 Alkaline Phosphatase 56 Total Protein 7.0 Albumin 3.8 Globulin 3.2 Albumin/Globulin Ratio 1.2 Serum , Qual NEGATIVE Urine Color Urine Clarity Urine pH Ur Specific [place] Urine Protein Urine Glucose (UA) Urine Ketones Urine Occult Blood Urine Nitrite Urine Bilirubin Urine Urobilinogen Ur Leukocyte Esterase Urine RBC Urine WBC Ur Squamous Epith Cells Urine Bacteria Urine Mucus 02/04/23 18:00 WBC RBC Hgb Hct MCV MCH MCHC RDW Std Deviation RDW Coeff of Dimitrios Plt Count MPV Immature Gran % (Auto) Neut % (Auto) Lymph % (Auto) [place] % (Auto) Eos % (Auto) Baso % (Auto) Absolute Neuts (auto) Absolute Lymphs (auto) Nucleated RBC % Sodium Potassium Chloride Carbon Dioxide Anion Gap BUN Creatinine Estim Creat Clear Calc Est GFR (MDRD) Af Amer Est GFR (MDRD) Non-Af BUN/Creatinine Ratio Glucose Calcium Total Bilirubin AST ALT Alkaline Phosphatase Total Protein Albumin Globulin Albumin/Globulin Ratio Serum , Qual Urine Color Yellow Urine Clarity Clear Urine pH 7.0 Ur Specific [place] 1.010 Urine Protein Negative Urine Glucose (UA) Normal Urine Ketones Negative Urine Occult Blood 25 H Urine Nitrite Negative Urine Bilirubin Negative Urine Urobilinogen Normal Ur Leukocyte Esterase Negative Urine RBC 0 SEEN Urine WBC 0 SEEN Ur Squamous Epith Cells 0 SEEN Urine Bacteria 0 SEEN Urine Mucus 0 SEEN Discharge Plan Triage Chief Complaint: Nausea/Vomiting/Diarrhea ED Provider: Rikki Maddox Dx/Rx/DC Orders Clinical Impression: Exacerbation of Crohn's disease, Nausea vomiting and diarrhea Instructions: ED Crohn's Disease Prescriptions: New hydrocodone-acetaminophen [hydrocodone-acetaminophen] 5-325 mg tablet 1 tab PO Q6H PRN PRN (Reason: Pain) 3 Days Qty: 10 0RF ondansetron [ondansetron] 4 mg tablet,disintegrating 4 mg PO Q8H PRN PRN (Reason: Nausea) Qty: 10 0RF promethazine [promethazine] 25 mg tablet 25 mg PO Q6H PRN PRN (Reason: Nausea) Qty: 10 0RF No Action citalopram 20 mg tablet 30 mg PO DAILY Label Comments: TAKE 1 & 1/2 (ONE AND ONE-HALF) TABLETS BY MOUTH ONCE DAILY ondansetron 4 mg tablet,disintegrating 8 mg PO Q8H PRN PRN (Reason: Nausea) Qty: 20 0RF promethazine 25 mg suppository 25 mg VA Q6H PRN (Reason: nausea and vomiting) Qty: 12 0RF diphenoxylate-atropine [Lomotil] 2.5-0.025 mg tablet 1 tab PO 4X/DAY PRN PRN (Reason: diarrhea) 5 Days Qty: 20 0RF oxycodone-acetaminophen [Percocet] 5-325 mg tablet 1 tab PO Q6H PRN (Reason: pain) 3 Days Qty: 12 0RF Primary Care Provider: Azael Lr Referrals: Azael Lr MD [Primary Care Provider] - Disposition Disposition: Home, Self Care
[2023-02-04 18:27] LABS: Bacteria 0 SEEN /hpf (None Seen); Mucous, Urine 0 SEEN /hpf (<or=2+); Red Blood Cells-Urine 0 SEEN /hpf (0-5); Squamous Epithelial Cells - UA 0 SEEN /hpf (5-10); White Blood Cells 0 SEEN /hpf (0-5)
[2023-02-04] MEDS: Morphine 4 MG/ML Syringe IV ×2 (18:28→20:20)
[2023-02-04] MEDS: 0.9% Normal Saline 1,000 ML 1000 ML IV (18:28)
[2023-02-04] MEDS: Ondansetron 4 MG/2 ML Vial IV (18:28)
[2023-02-04 18:31] LABS: Absolute Neutrophil Count 6.6 X10^3/uL (2.0-7.7); Basophil% 0.8 % (0-1); Eosinophil# 0.27 X10^3/uL; Eosinophils% 2.3 % (0-5); Hematocrit 38.7 % (37-47); Lymphocyte % 33.6 % (19-41); Mean Corp Hgb Conc 33.6 g/dL (32-36); Mean Corpuscular Hgb 29.9 pg (27.0-32.0); Mean Platelet Vol. 9.9 fl (6.2-12.0); Monocyte# 0.83 X10^3/uL; NRBC Flagged by Analyzer 0 % (0-5); Neutrophil # 6.62 X10^3/uL (2.7-7.7); Neutrophil % 55.7 % (47-70); Platelet Count 405 K/mm3 (150-450); RBC Distribution Width CV 14.2 % (11.6-14.6); RBC Distribution Width SD 46.3 fl (35.1-43.9); Red Blood Count 4.35 M/mm3 (4.2-5.4); White Blood Count 11.9 K/mm3 (4.4-11.0)
[2023-02-04 18:32] LABS: Color, Urine Yellow (Yellow); Glucose, Dipstick Normal (Normal); Ketone-Dipstick Negative (Negative); Leukocyte Esterase-Dipstick Negative /ul (Negative); Nitrite-Dipstick Negative (Negative); Occult Blood-Urine 25 /ul (Negative); Protein-Dipstick Negative (Negative); Urine Bilirubin Dipstick Negative (Negative); Urine Clarity Clear (Clear); Urine Urobilinogen Normal (Normal)
[2023-02-04 18:47] LABS: Internal QC Validated? YES +Cl - CLEAR BKGD; Pregnancy, Serum, hCG Quali. NEGATIVE Negative
[2023-02-04 18:54] LABS: ALB/GLOB Ratio 1.2 RATIO (0.9-2.4); AST(SGOT) 12 U/L (15-37); Alanine Aminotransfer ALT/SGPT 21 U/L (13-56); Albumin, Serum 3.8 g/dL (3.2-5.0); Alkaline Phosphatase 56 U/L (45-117); Anion Gap 5 (5-15); BUN 12 mg/dL (7-18); BUN/Creat Ratio 20.4 RATIO (10-20); Chloride 111 mmol/L (98-107); Creatinine, Serum 0.59 mg/dL (0.55-1.02); EST Glomerular Filtration Rate 124 mL/min (>60); Est Glom Filt Rate - Afr Amer 150 mL/min (>60); Estimated Creatinine Clearance 114.92 ml/min; Globulin 3.2 g/dL (2.2-4.2); Glucose 89 mg/dL (74-106); Potassium 3.8 mmol/L (3.5-5.1); Sodium Level 141 mmol/L (136-145)
[2023-02-04 20:09] VITALS: BP 110/65
[2023-02-04] MEDS: proMETHazine 25 MG/ML Syringe 12.5 MG IM (20:17)
[2023-02-04] MEDS: MethylPREDNISolone 125 MG/2 ML Vial 60 MG IV (20:20)
== END 2023-02-04 20:30 | disposition home or self-care (01) ==
PROVIDERS: Emergency Provider Emergency Medicine; PCP Family Medicine; Visit Provider Emergency Medicine
DX: K50.90 Crohn's disease, unspecified, without complications (principal); F17.200 Nicotine dependence, unspecified, uncomplicated
CPT/HCPCS: 80053; 81001; 84703; 85025; 96361; 96372; 96374; 96375; 96376; 99283; J7030; A4216; J2405

== ENCOUNTER 2023-03-26 11:49 | Emergency (ER) | payer OTHER, SELFPAY ==
[2023-03-26 11:51] VITALS: BP 117/79; PULSE 68; RESP 18; TEMP 36.3; O2SAT 96; BMI 28.5
--- NOTE | 2023-03-26 12:26 | EX.ED.GENINJ ---
HPI History of Present Illness Chief Complaint: Nausea/Vomiting [facility] Medical History Anxiety Colitis Crohns disease Depression Stephanie Tobar infection Gestational diabetes Left ovarian cyst Sleep apnea Home Medications citalopram 20 mg tablet 30 mg PO DAILY 07/12/21 [History Last Taken Unknown] ondansetron 4 mg disintegrating tablet 8 mg (2 x 4 mg) PO Q8H PRN PRN Nausea #20 tabs 09/02/22 [Rx Last Taken Unknown] promethazine 25 mg rectal suppository 25 mg NC Q6H PRN nausea and vomiting #12 ea 11/12/22 [Rx Last Taken Unknown] diphenoxylate-atropine 2.5 mg-0.025 mg tablet (Lomotil) 1 tab PO 4X/DAY PRN PRN diarrhea 5 days #20 tabs 11/22/22 [Rx Last Taken Unknown] oxycodone-acetaminophen 5 mg-325 mg tablet (Percocet) 1 tab PO Q6H PRN pain 3 days #12 tabs 11/22/22 [Rx Last Taken Unknown] hydrocodone-acetaminophen 5-325mg 5mg-325mg 1 tab PO Q6H PRN PRN Pain 3 days #10 TABLETS 02/04/23 [Rx Last Taken Unknown] ondansetron 4 mg disintegrating tablet 4 mg PO Q8H PRN PRN Nausea #10 tabs 02/04/23 [Rx Last Taken Unknown] prednisone 20 mg tablet 60 mg (3 x 20 mg) PO DAILY #15 TABLETS 02/04/23 [Rx Last Taken Unknown] promethazine 25 mg tablet 25 mg PO Q6H PRN PRN Nausea #10 TABLETS 02/04/23 [Rx Last Taken Unknown] ondansetron 4 mg disintegrating tablet 4 mg PO Q8H PRN nausea and vomiting 3 days #9 tabs 03/26/23 [Rx Last Taken Unknown] oxycodone 5 mg capsule 5 mg PO Q6H PRN pain 5 days #20 caps 03/26/23 [Rx Last Taken Unknown] prednisone 50 mg tablet 50 mg PO DAILY 5 days #5 tabs 03/26/23 [Rx Last Taken Unknown] Allergy/AdvReac Type Severity Reaction Status Date / Time nectarine Allergy Angioedema Verified 03/26/23 11:51 metoclopramide [From Reglan] AdvReac headache Verified 03/26/23 11:51 Family History Mother Heart disease Pacemaker Grandfather Diabetes Grandmother Diabetes Surgical History History of colonoscopy (~2017) History of colonoscopy (~2017) History of esophagogastroduodenoscopy (EGD) (~2018) History of wisdom tooth extraction Social History household members: spouse Smoking Status: Light Smoker (<10/day) alcohol intake: never substance use type: does not use caffeine: Yes what type of physical activity do you participate in: walking seatbelt use: always do you feel safe at home: Yes additional [facility] [employer] EXAM Physical Exam Const Vital Signs: 03/26/23 11:51 Temperature 97.3 F L Temperature Source Temporal Pulse Rate 68 Respiratory Rate 18 Blood Pressure 117/79 Blood Pressure Mean 91 Pulse Ox 96 Oxygen Delivery Method Room Air MDM MDM MDM Narrative Medical decision making narrative: HISTORY OF PRESENT ILLNESS: 37-year-old female here with abdominal pain nausea vomiting. She also complains of chest pain. She further states she developed nausea and vomiting and then this was followed by chest pain. The pain is not ripping or tearing. Is not pressure-like. It is worse with vomiting. She denies any syncope. Denies any focal numbness or weakness. She also complains of diffuse abdominal pain. She points to her right lower rib margin. Denies history of cholecystectomy. The patient denies recent surgery in the last 4 weeks or immobilization in the last 3 days, denies previous diagnosis of DVT or PE, hemoptysis, unilateral leg swelling or malignancy with treatment the last 6 months. No estrogen use noted. REVIEW OF SYSTEMS: Pertinent positives: Abdominal pain, nausea vomiting, chest pain Pertinent negatives: Syncope, cough PHYSICAL EXAM: Nursing triage notes reviewed, Vital signs reviewed Constitutional: please see mdm HENT: MMM Eyes: Pupils equal round and reactive to light, Extraocular muscles intact Neck: No stridor, no JVD, full neck ROM Lungs: Clear to auscultation, No wheezing or rales. No increased work of breathing, no conversational dyspnea, no accessory muscle use, no nasal flaring. No respiratory distress noted Heart: Regular rate and rhythm, No murmurs, No rubs and No gallops, 2+ distal pulses (radial, femoral, posterior tibial) in all extremities Abdomen: Soft, right-sided abdominal TTP, negative Márquez sign no rigidity, rebound or guarding, no obvious peritoneal signs, no palpable pulsatile abdominal masses, no auscultated abdominal bruit : No CVAT Extremities: No edema Neuro: No focal neurological deficits, cranial nerves II through XII intact, 5/5 strength in all extremities. Intact sensation to light touch in all extremities, 2+ reflexes bilateral patella tendons. Normal gait. No ataxia. Skin: No rash or lesions noted MEDICAL DECISION MAKING: Chief Complaint: Abdominal pain nausea vomiting External records reviewed: Last CT scan from 2022 shows no acute surgical pathology but evidence of diarrheal illness Factors affecting care: Crohn's colitis Consults: none ALL IMAGES (IF OBTAINED) HAVE BEEN PERSONALLY REVIEWED AND INTERPRETED BY MYSELF. EKG with normal sinus rhythm, normal axis, normal levels, no STEMI MDM Narrative: Patient was hemodynamically stable, afebrile, nontoxic-appearing. Exam with right side abdominal tenderness but a negative Márquez sign. I considered the following differential diagnosis: AAA, small bowel obstruction, abdominal perforation, appendicitis, pancreatitis, hepatobiliary pathology (acute cholecystitis), mesenteric ischemia, abnormalities such as ovarian pathology, PID. PE less likely given low risk Wells score. Aortic dissection is thought to be less likely given no sudden ripping or tearing pain, migratory pain, palpable pulse inequalities, no focal neurologic deficits concurrent with chest pain. Chance of dissection less than 09/1999. Pericarditis less likely given no pathognomonic EKG changes (no diffuse ST elevations, NC depressions). GI etiology (i.e. Boerhaave syndrome) less likely given no chest or neck crepitus, no vomiting or forced retching. I treated the patient with Pepcid, normal saline, Zofran and morphine. I obtained a broad lab work-up to further elucidate the etiology of the patient's complaints. Labs with systemic inflammation. I suspect the patient is having a Crohn's flare. She is well for discharge home with steroids, narcotics and Zofran for symptomatic relief. I see nothing that would suggest an acute abdomen at this time. Based on history physical exam, risk factors, I have a low for bowel obstruction, incarcerated hernia, acute pancreatitis, intra-abdominal abscess, perforated viscus, diverticulitis, cholecystitis, appendicitis, PID, ovarian torsion, ectopic and tubo-ovarian abscess is very low. There is no evidence of peritonitis sepsis or toxicity at this time. I feel the patient can be managed as an outpatient with follow-up with her primary physician in the next 24 to 48 hours or soon as possible. Instructions have been given for the patient to return to the ED for worsening pain, anorexia, high fevers, intractable vomiting or bleeding. The patient and/or family, caregivers express understanding. The patient and/or family, caregivers agrees with the plan. Shared decision making: I will have a discussion with the patient and or visitors regarding risk/benefits of further testing or admission. They will be made aware of of the risk/benefits inherent in this decision they will be given the opportunity to voice understanding. Total critical care time today provided was at least 0 minutes. This excludes separately billable procedures. Critical care time (if documented) is secondary to the patient having high probability of clinically significant/life threatening deterioration in the patient's condition which required my urgent intervention. Lab Data Attestation: I reviewed the patient's lab results. Lab results narrative: CBC with leukocytosis suggestive of systemic inflammation, no anemia, no thrombocytopenia BMP without significant electrolyte abnormalities, no anion gap, no acute kidney injury, LFTs evidence of hepatobiliary obstruction Lipase is wnl indicating no pancreatic inflammation. Serum test is negative Troponin is negative, no evidence of myocardial ischemia Labs: Laboratory Results - last 24 hr 03/26/23 03/26/23 03/26/23 12:50 12:50 13:25 WBC Cancelled 13.3 H Corrected WBC Cancelled RBC Cancelled 4.05 L Hgb Cancelled 12.1 Hct Cancelled 35.4 L MCV Cancelled 87.4 MCH Cancelled 29.9 MCHC Cancelled 34.2 RDW Std Deviation Cancelled 44.8 H RDW Coeff of Dimitrios Cancelled 13.9 Plt Count Cancelled 311 MPV Cancelled 9.2 Immature Gran % (Auto) Cancelled 0.200 Neut % (Auto) Cancelled 66.1 Lymph % (Auto) Cancelled 24.5 [place] % (Auto) Cancelled 6.2 Eos % (Auto) Cancelled 2.3 Baso % (Auto) Cancelled 0.7 Absolute Neuts (auto) Cancelled 8.8 H Absolute Lymphs (auto) Cancelled 3.27 Total Counted Cancelled Neutrophils % (Manual) Cancelled Band Neutrophils % Cancelled Lymphocytes % (Manual) Cancelled Monocytes % (Manual) Cancelled Eosinophils % (Manual) Cancelled Basophils % (Manual) Cancelled Metamyelocytes % Cancelled Myelocytes % Cancelled Promyelocytes % Cancelled Blast Cells % Cancelled Plasma Cell % (Manual) Cancelled Other Cells % Cancelled Nucleated RBC % Cancelled 0 Nucleated RBCs/100 WBC Cancelled Differential Comment Cancelled Diff Path Review Cancelled Hypersegmented Neuts Cancelled Atypical Lymphocytes Cancelled Reactive Lymphocytes Cancelled Smudge Cells Cancelled Toxic Granulation Cancelled Toxic Vacuolation Cancelled Dohle Bodies Cancelled Carlos Rods Cancelled Platelet Estimate Cancelled Plt Morphology Comment Cancelled RBC Morphology Cancelled Cancelled Polychromasia Cancelled Hypochromasia Cancelled Poikilocytosis Cancelled Basophilic Stippling Cancelled Anisocytosis Cancelled Microcytosis Cancelled Macrocytosis Cancelled Spherocytes Cancelled Sickle Cells Cancelled Target Cells Cancelled Tear Drop Cells Cancelled Ovalocytes Cancelled Stomatocytes Cancelled [place] Bodies Cancelled Zack Cells Cancelled Bite Cells Cancelled Crenated Cell Cancelled Acanthocytes (Spur) Cancelled Rouleaux Cancelled Schistocytes Cancelled Sodium 141 Potassium 4.1 Chloride 114 H Carbon Dioxide 22.0 Anion Gap 5 BUN 11 Creatinine 0.69 Estim Creat Clear Calc 98.27 Est GFR (MDRD) Af Amer 124 Est GFR (MDRD) Non-Af 102 BUN/Creatinine Ratio 15.9 Glucose 99 Calcium 8.9 Total Bilirubin 0.30 Direct Bilirubin < 0.05 AST 22 ALT 19 Alkaline Phosphatase 62 Troponin I High Sens < 3 L Total Protein 7.1 Albumin 3.8 Globulin 3.3 Lipase 41 Serum , Qual NEGATIVE Radiography Diagnostic Testing: Clinical Impression(s) from Imaging Studies Chest X-Ray 03/26/23 13:35 IMPRESSION: No radiographic evidence of acute cardiopulmonary disease. Electronically Signed: Navid Awad MD at 14:14 EDT , I have personally reviewed the patient's chest x-ray. Chest x-ray is unremarkable for pulmonary edema, pneumothorax, pneumonia or focal cardiopulmonary abnormality. Discharge Plan Triage Chief Complaint: Nausea/Vomiting Other Complaint: Abd Pain ED Provider: Pedro Malhotra Dx/Rx/DC Orders Clinical Impression: Exacerbation of Crohn's disease Instructions: Managing Crohn's Disease: Medicines Prescriptions: New oxycodone 5 mg capsule 5 mg PO Q6H PRN (Reason: pain) 5 Days Qty: 20 0RF ondansetron 4 mg tablet,disintegrating 4 mg PO Q8H PRN (Reason: nausea and vomiting) 3 Days Qty: 9 0RF prednisone 50 mg tablet 50 mg PO DAILY 5 Days Qty: 5 0RF No Action citalopram 20 mg tablet 30 mg PO DAILY Patient Comments: TAKE 1 & 1/2 (ONE AND ONE-HALF) TABLETS BY MOUTH ONCE DAILY ondansetron 4 mg tablet,disintegrating 8 mg PO Q8H PRN PRN (Reason: Nausea) Qty: 20 0RF promethazine 25 mg suppository 25 mg NC Q6H PRN (Reason: nausea and vomiting) Qty: 12 0RF diphenoxylate-atropine [Lomotil] 2.5-0.025 mg tablet 1 tab PO 4X/DAY PRN PRN (Reason: diarrhea) 5 Days Qty: 20 0RF oxycodone-acetaminophen [Percocet] 5-325 mg tablet 1 tab PO Q6H PRN (Reason: pain) 3 Days Qty: 12 0RF hydrocodone-acetaminophen [hydrocodone-acetaminophen] 5-325 mg tablet 1 tab PO Q6H PRN PRN (Reason: Pain) 3 Days Qty: 10 0RF ondansetron [ondansetron] 4 mg tablet,disintegrating 4 mg PO Q8H PRN PRN (Reason: Nausea) Qty: 10 0RF promethazine [promethazine] 25 mg tablet 25 mg PO Q6H PRN PRN (Reason: Nausea) Qty: 10 0RF prednisone 20 mg tablet 60 mg PO DAILY Qty: 15 0RF Stand Alone Forms: ED Work / School Excuse Primary Care Provider: Azael Lr Referrals: Azael Lr MD [Primary Care Provider] - Activity Restrictions/Additional Instructions: Thank you for trusting us with your care today! Please take Tylenol (2 pills, 650 mg), ibuprofen (2 pills, 400 mg) every 6 hours as needed for pain and fever control. Please take oxycodone if the above regimen does not control your pain. Please take prednisone daily. Please take Zofran as needed for nausea vomiting. Please return to the emergency department if your symptoms change or worsen. Specifically if cannot tolerate oral Zofran or medicines. If your symptoms change or worsen. Please follow with your primary care physician for further outpatient evaluation and management. Disposition Disposition: Home, Self Care
[2023-03-26] MEDS: Ondansetron 4 MG/2 ML Vial IV (13:12)
[2023-03-26] MEDS: Morphine 4 MG/ML Syringe IV ×2 (13:12→14:53)
[2023-03-26] MEDS: 0.9% Normal Saline 1,000 ML 1000 ML IV (13:13)
[2023-03-26 13:31] LABS: Absolute Lymphocyte Count 3.27 X10^3/uL (0.83-4.51); Absolute Neutrophil Count 8.8 X10^3/uL (2.0-7.7); Basophil# 0.09 X10^3/uL; Basophil% 0.7 % (0-1); Eosinophil# 0.31 X10^3/uL; Eosinophils% 2.3 % (0-5); Hematocrit 35.4 % (37-47); Hemoglobin 12.1 g/dL (12.0-15.0); Lymphocyte # 3.27 X10^3/ul (0.83-4.51); Lymphocyte % 24.5 % (19-41); Mean Corp Hgb Conc 34.2 g/dL (32-36); Mean Corpuscular Hgb 29.9 pg (27.0-32.0); Mean Corpuscular Volume 87.4 fL (81-99); Mean Platelet Vol. 9.2 fl (6.2-12.0); Monocyte# 0.83 X10^3/uL; Monocyte% 6.2 % (0-10); NRBC Flagged by Analyzer 0 % (0-5); Neutrophil # 8.79 X10^3/uL (2.7-7.7); Neutrophil % 66.1 % (47-70); Platelet Count 311 K/mm3 (150-450); RBC Distribution Width CV 13.9 % (11.6-14.6); RBC Distribution Width SD 44.8 fl (35.1-43.9); Red Blood Count 4.05 M/mm3 (4.2-5.4); White Blood Count 13.3 K/mm3 (4.4-11.0)
[2023-03-26 13:35] LABS: AST(SGOT) 22 U/L (15-37); Alanine Aminotransfer ALT/SGPT 19 U/L (13-56); Albumin, Serum 3.8 g/dL (3.2-5.0); Alkaline Phosphatase 62 U/L (45-117); Anion Gap 5 (5-15); BUN 11 mg/dL (7-18); BUN/Creat Ratio 15.9 RATIO (10-20); Bilirubin, Direct < 0.05 mg/dL (0.00-0.30); Calcium,Total 8.9 mg/dL (8.5-10.1); Chloride 114 mmol/L (98-107); Creatinine, Serum 0.69 mg/dL (0.55-1.02); EST Glomerular Filtration Rate 102 mL/min (>60); Est Glom Filt Rate - Afr Amer 124 mL/min (>60); Estimated Creatinine Clearance 98.27 ml/min; Globulin 3.3 g/dL (2.2-4.2); Glucose 99 mg/dL (74-106); Lipase 41 U/L (13-75); Potassium 4.1 mmol/L (3.5-5.1); Protein, Total 7.1 g/dL (6.4-8.2); Sodium Level 141 mmol/L (136-145); Troponin-I HS < 3 pg/mL (3.0-54.0)
--- NOTE | 2023-03-26 13:35 | RAD_ITS ---
INDICATION: chest pain EXAMINATION/TECHNIQUE: X-RAY - XR Chest 2 Views COMPARISON: No prior examinations are available for comparison. FINDINGS: LINES/DEVICES: None. LUNGS: No consolidation, edema or effusion. Probable small granuloma in the left lower lung. No pneumothorax. MEDIASTINUM AND CARDIOVASCULAR STRUCTURES: Cardiac silhouette not enlarged. Central airways and mediastinal contour are unremarkable. BONES AND SOFT TISSUES: Unremarkable. RAD/Chest PA and Lateral IMPRESSION: No radiographic evidence of acute cardiopulmonary disease. Electronically Signed: Navid Awad MD at 14:14 EDT ,
[2023-03-26 13:46] LABS: Internal QC Validated? YES +Cl - CLEAR BKGD; Pregnancy, Serum, hCG Quali. NEGATIVE Negative
--- NOTE | 2023-03-26 14:00 | EKG12_ITS ---
Test Reason : GENERAL Blood Pressure : / mmHG Vent. Rate : 050 BPM Atrial Rate : 050 BPM P-R Int : 148 ms QRS Dur : 088 ms QT Int : 446 ms P-R-T Axes : 019 060 044 degrees QTc Int : 406 ms Sinus bradycardia Otherwise normal ECG Confirmed by KERMIT CLEMONS, ANASTACIA ([id number]), editorial project manager JEANNIE MESA ([id number]) on 03/27/2023 2:24:27 PM Referred By: Confirmed By:ANASTACIA CARMEN MD
[2023-03-26] MEDS: Famotidine 200 MG/20 ML MDV 20 MG in 0.9% Normal Saline (Pres. free 8 ML 300 MG IV (14:08)
[2023-03-26 15:12] VITALS: BP 122/61; PULSE 58; RESP 16; O2SAT 99
== END 2023-03-26 15:16 | disposition home or self-care (01) ==
PROVIDERS: Emergency Provider Emergency Medicine; PCP Family Medicine; Visit Provider Emergency Medicine
DX: K50.90 Crohn's disease, unspecified, without complications (principal); Z79.52 Long term (current) use of systemic steroids; F17.200 Nicotine dependence, unspecified, uncomplicated; R07.81 Pleurodynia
CPT/HCPCS: 71046; 80048; 80076; 83690; 84484; 84703; 85025; 93005; 96361; 96374; 96375; 96376; 99283; J7030; A4216; J2405; J3490

== ENCOUNTER 2023-05-03 15:20 | Emergency (ER) | payer OTHER, SELFPAY ==
[2023-05-03 15:21] VITALS: BP 124/68; PULSE 80; RESP 16; TEMP 36.3; O2SAT 99; BMI 27.3
--- NOTE | 2023-05-03 15:33 | EKG12_ITS ---
Test Reason : GENERAL Blood Pressure : / mmHG Vent. Rate : 078 BPM Atrial Rate : 078 BPM P-R Int : 144 ms QRS Dur : 090 ms QT Int : 378 ms P-R-T Axes : 033 069 050 degrees QTc Int : 430 ms Normal sinus rhythm Normal ECG BY 28 BPM Confirmed by KERMIT CLEMONS, ANASTACIA ([id number]), graphics editor JEANNIE MESA ([id number]) on 05/08/2023 10:43:42 AM Referred By: Confirmed By:ANASTACIA CARMEN MD
--- NOTE | 2023-05-03 15:35 | EDS_ITS ---
HPI HPI - GI History of Present Illness Chief Complaint: Abd Pain Informant: patient Narrative Narrative: Patient presents with what she feels is a flareup of her Crohn's disease. Patient is not on any current medication other than as needed Zofran, Phenergan, Bentyl. She is not on any Biologics or steroids. She denies any prior abdominal surgeries for any conditions including Crohn's. She sees Dr. Jacob in [place]. Her last colonoscopy was probably a couple years. She has follow-up in 10 days already arranged. She states a week ago she was getting a little bit more cramping. 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 Since then she has had more cramping and discomfort. She has had nausea. She vomited a little bit today but she was also able to get some soup in today and keep it down. She states normally has 4 bowel movements a day that are soft but her bowel movements are much less and she really has not had 1 for about 2 days but she also has not been eating or drinking. She has never had an obstruction. She has no fevers. She has no urinary symptoms. Her abdomen is source essentially all over. Its not localized to one area. Nothing really makes it better and her home medicines are not working well for her. [facility] Medical History Anxiety Colitis Crohns disease Depression Stephanie Tobar infection Gestational diabetes Left ovarian cyst Sleep apnea Home Medications citalopram 20 mg tablet 30 mg PO DAILY 07/12/21 [History Last Taken Unknown] diphenoxylate-atropine 2.5 mg-0.025 mg tablet (Lomotil) 1 tab PO 4X/DAY PRN PRN diarrhea 5 days #20 tabs 11/22/22 [Rx Last Taken Unknown] promethazine 25 mg tablet 25 mg PO Q6H PRN PRN Nausea #10 TABLETS 02/04/23 [Rx Last Taken Unknown] ondansetron 4 mg disintegrating tablet 4 mg PO Q8H PRN nausea and vomiting 3 days #9 tabs 03/26/23 [Rx Last Taken Unknown] doxycycline monohydrate 100 mg capsule 100 mg PO BID #20 caps 04/29/23 [Rx Last Taken Unknown] oxycodone-acetaminophen 5 mg-325 mg tablet 1 tab PO Q6H PRN PRN Pain 3 days #12 TABLETS 05/03/23 [Rx Last Taken Unknown] prednisone 20 mg tablet 40 mg (2 x 20 mg) PO DAILY 5 days #10 TABLETS 05/03/23 [Rx Last Taken Unknown] Allergy/AdvReac Type Severity Reaction Status Date / Time nectarine Allergy Angioedema Verified 05/03/23 15:21 metoclopramide [From Reglan] AdvReac headache Verified 05/03/23 15:21 Family History Mother Heart disease Pacemaker Grandfather Diabetes Grandmother Diabetes Surgical History History of colonoscopy (~2017) History of colonoscopy (~2017) History of esophagogastroduodenoscopy (EGD) (~2018) History of wisdom tooth extraction Social History household members: spouse Smoking Status: Light Smoker (<10/day) alcohol intake: never substance use type: does not use caffeine: Yes what type of physical activity do you participate in: walking seatbelt use: always do you feel safe at home: Yes additional social history: [employer] ROS ROS ED ROS Narrative A complete review of systems was performed and is negative except as documented in the history of present illness. Some specific details below. Constitutional: No recent fevers or chills. EYE: No visual complaints or pain. No change in eye color. ENT: No difficulty swallowing. No swelling. No pain. No GERD. CV: No chest pain or palpitations. Respiratory: No dyspnea. No hemoptysis. No difficulty taking breaths. GI: Please see history of present illness. : No frequency dysuria or hematuria. Musculoskeletal: No recent trauma. No pains. Skin: No rash. Nondiaphoretic. Neuro: No weakness or numbness. Endocrine: No polyuria or polydipsia. EXAM Physical Exam Narrative Exam Narrative: CONSTITUTIONAL: Patient is nontoxic in appearance. The patient looks comfortable. HEENT: No notable trauma. Mucous membranes are still moist. No sinus tenderness. No indication of pain with swallowing. No thrush. EYES: No conjunctival injection. No proptosis. CARDIOVASCULAR: Regular rate. Regular rhythm. No notable murmur. No JVD. RESPIRATORY: No respiratory distress. Breathing is unlabored. No wheezes. No rhonchi. No rales. No pain with a deep breath. GASTROINTESTINAL: It is hard to tell if her abdomen is actually distended. It is not taut. She feels that it is benson than normal. Bowel sounds are normal. Her bowel sounds do not sound increased or decreased. Despite the discomfort, I am not finding areas of tenderness. GENITOURINARY: No tenderness over the bladder. No CVA tenderness. MUSCULOSKELETAL: Atraumatic. No peripheral edema. No cord. No tenderness along the deep venous system. No asymmetry. NEUROLOGICAL: Patient is alert and appropriate. No focal deficit noted. SKIN: No noted rashes. No diaphoresis. PSYCHIATRIC: Patient is calm. Mood is appropriate. Const Vital Signs: 05/03/23 15:21 Temperature 97.3 F L Temperature Source Temporal Pulse Rate 80 Respiratory Rate 16 Blood Pressure 124/68 H Blood Pressure Mean 86 Pulse Ox 99 MDM MDM MDM Narrative Medical decision making narrative: We talked about options with the patient. Her concern is that she is not having bowel movements and feels bloated. We did mutually agreed to do a CT to rule out obstruction as her symptoms have been going on for almost a week now. We have also got blood work IV fluids and medications written for. CBC shows mild elevation of white count which she has had before but is nonspecific. Electrolytes shows minimal elevation of chloride but no sign of hydrate of significance. Glucose is normal. Hepatic function shows no values. Lipase shows normal level at 28. Serum shows negative My independent interpretation the patient's CT of her abdomen shows no sign of obstruction or ileus. No free air final reading no acute trip aminal process there is a small ovarian cyst less than 2 cm in the left side but she is not having focal pain there. I do not this represents torsion without localized pain and significant elevation of size. I rechecked the patient. She is feeling much better. She is not having urinary symptoms and would prefer not to wait for another urinalysis. She already went to the bathroom but it was not saved and she does not feel she needs to go again. 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 We did discuss reasons to return. Lab Data Attestation: I reviewed the patient's lab results. Labs: Laboratory Results - last 24 hr 05/03/23 16:05 WBC 14.6 H RBC 4.62 Hgb 13.6 Hct 39.9 MCV 86.4 MCH 29.4 MCHC 34.1 RDW Std Deviation 41.6 RDW Coeff of Dimitrios 13.3 Plt Count 382 MPV 9.3 Immature Gran % (Auto) 0.300 Neut % (Auto) 62.7 Lymph % (Auto) 29.0 [place] % (Auto) 5.5 Eos % (Auto) 1.7 Baso % (Auto) 0.8 Absolute Neuts (auto) 9.2 H Absolute Lymphs (auto) 4.25 Nucleated RBC % 0 Sodium 138 Potassium 3.6 Chloride 109 H Carbon Dioxide 21.0 Anion Gap 8 BUN 13 Creatinine 0.65 Estim Creat Clear Calc 104.32 Est GFR (MDRD) Af Amer 134 Est GFR (MDRD) Non-Af 111 BUN/Creatinine Ratio 20.1 H Glucose 91 Calcium 9.1 Total Bilirubin 0.40 AST 10 L ALT 16 Alkaline Phosphatase 63 Total Protein 7.0 Albumin 3.8 Globulin 3.2 Albumin/Globulin Ratio 1.2 Lipase 28 Serum , Qual NEGATIVE Radiography Diagnostic Testing: Clinical Impression(s) from Imaging Studies Abdomen/Pelvis CT 05/03/23 17:00 IMPRESSION: Fluid density mass in the left hemipelvis which may represent an ovarian cyst. No other acute abnormalities are identified. Electronically Signed: Sam Otero MD at 17:16 EDT , EKG Initial EKG: Comments: I independent interpretation of her EKG done for history of hypokalemia shows normal sinus rhythm with overall rate of 78. No acute ST elevation or depression although there is some baseline variation. CA interval, QRS duration and QTc are all within normal. Discharge Plan Triage Chief Complaint: Abd Pain ED Provider: Rikki Maddox Dx/Rx/DC Orders Clinical Impression: Exacerbation of Crohn's disease, Abdominal pain Instructions: ED Crohn's Disease Prescriptions: New oxycodone-acetaminophen [oxycodone-acetaminophen] 5-325 mg tablet 1 tab PO Q6H PRN PRN (Reason: Pain) 3 Days Qty: 12 0RF prednisone 20 mg tablet 40 mg PO DAILY 5 Days Qty: 10 0RF No Action doxycycline monohydrate 100 mg capsule 100 mg PO BID Qty: 20 0RF citalopram 20 mg tablet 30 mg PO DAILY Patient Comments: TAKE 1 & 1/2 (ONE AND ONE-HALF) TABLETS BY MOUTH ONCE DAILY diphenoxylate-atropine [Lomotil] 2.5-0.025 mg tablet 1 tab PO 4X/DAY PRN PRN (Reason: diarrhea) 5 Days Qty: 20 0RF promethazine [promethazine] 25 mg tablet 25 mg PO Q6H PRN PRN (Reason: Nausea) Qty: 10 0RF ondansetron 4 mg tablet,disintegrating 4 mg PO Q8H PRN (Reason: nausea and vomiting) 3 Days Qty: 9 0RF Primary Care Provider: Azael Lr Referrals: Azael Lr MD [Primary Care Provider] - As soon as possible Activity Restrictions/Additional Instructions: See Dr. Jacob as scheduled or sooner if able. Disposition Disposition: Home, Self Care
[2023-05-03] MEDS: Morphine 4 MG/ML Syringe IV ×2 (16:09→17:37)
[2023-05-03] MEDS: Ondansetron 4 MG/2 ML Vial IV (16:09)
[2023-05-03] MEDS: 0.9% Normal Saline 1,000 ML 1000 ML IV (16:10)
[2023-05-03 16:15] LABS: Absolute Lymphocyte Count 4.25 X10^3/uL (0.83-4.51); Absolute Neutrophil Count 9.2 X10^3/uL (2.0-7.7); Basophil# 0.11 X10^3/uL; Basophil% 0.8 % (0-1); Eosinophil# 0.25 X10^3/uL; Eosinophils% 1.7 % (0-5); Hematocrit 39.9 % (37-47); Hemoglobin 13.6 g/dL (12.0-15.0); Lymphocyte # 4.25 X10^3/ul (0.83-4.51); Mean Corp Hgb Conc 34.1 g/dL (32-36); Mean Corpuscular Hgb 29.4 pg (27.0-32.0); Mean Corpuscular Volume 86.4 fL (81-99); Mean Platelet Vol. 9.3 fl (6.2-12.0); Monocyte# 0.81 X10^3/uL; Monocyte% 5.5 % (0-10); NRBC Flagged by Analyzer 0 % (0-5); Neutrophil # 9.16 X10^3/uL (2.7-7.7); Neutrophil % 62.7 % (47-70); Platelet Count 382 K/mm3 (150-450); RBC Distribution Width CV 13.3 % (11.6-14.6); RBC Distribution Width SD 41.6 fl (35.1-43.9); Red Blood Count 4.62 M/mm3 (4.2-5.4); White Blood Count 14.6 K/mm3 (4.4-11.0)
[2023-05-03 16:42] LABS: Internal QC Validated? YES +Cl - CLEAR BKGD; Pregnancy, Serum, hCG Quali. NEGATIVE Negative
[2023-05-03 16:50] LABS: ALB/GLOB Ratio 1.2 RATIO (0.9-2.4); AST(SGOT) 10 U/L (15-37); Alanine Aminotransfer ALT/SGPT 16 U/L (13-56); Albumin, Serum 3.8 g/dL (3.2-5.0); Alkaline Phosphatase 63 U/L (45-117); Anion Gap 8 (5-15); BUN 13 mg/dL (7-18); BUN/Creat Ratio 20.1 RATIO (10-20); Calcium,Total 9.1 mg/dL (8.5-10.1); Chloride 109 mmol/L (98-107); Creatinine, Serum 0.65 mg/dL (0.55-1.02); EST Glomerular Filtration Rate 111 mL/min (>60); Est Glom Filt Rate - Afr Amer 134 mL/min (>60); Estimated Creatinine Clearance 104.32 ml/min; Globulin 3.2 g/dL (2.2-4.2); Glucose 91 mg/dL (74-106); Lipase 28 U/L (13-75); Potassium 3.6 mmol/L (3.5-5.1); Sodium Level 138 mmol/L (136-145)
--- NOTE | 2023-05-03 17:00 | CT_ITS ---
EXAM: CT ABDOMEN AND PELVIS WITH INTRAVENOUS CONTRAST CLINICAL INDICATION: pain TECHNIQUE: Helically acquired images were obtained of the abdomen and pelvis with intravenous contrast. This CT exam was performed using one or more of the following dose reduction techniques: automated exposure control, adjustment of the mA and/or kV according to patient size, and/or use of iterative reconstruction technique. CONTRAST: IV 100mL Isovue-300 COMPARISON: 11/22/2022 FINDINGS: LOWER THORAX: Unremarkable. Lung bases are clear. No cardiomegaly. No significant pericardial effusion. ABDOMEN: LIVER: Unremarkable. Homogeneous. No focal mass. GALLBLADDER AND BILE DUCTS: Unremarkable. No calcified gallstones. No gallbladder distention or wall edema. No intra- or extrahepatic biliary ductal dilation. PANCREAS: Unremarkable. No focal cystic or solid mass. SPLEEN: Unremarkable. Normal size without focal cystic or solid mass. ADRENALS: Unremarkable. No nodules. KIDNEYS AND URETERS: Unremarkable. Normal renal size and position. No hydronephrosis. STOMACH AND BOWEL: Unremarkable. No stomach or bowel distention. No focal inflammatory change. PELVIS: APPENDIX: No evidence of acute appendicitis. BLADDER: Unremarkable. REPRODUCTIVE: There is a fluid density mass in the right hemipelvis that measures 1.8 x 1.9 cm and may represent an ovarian cyst. ABDOMEN and PELVIS: INTRAPERITONEAL SPACE: Unremarkable. No ascites or other fluid collection. No free air. BONES/JOINTS: Unremarkable. No suspicious lytic or blastic abnormality. SOFT TISSUES: Unremarkable. No discrete abdominal or pelvic wall hernia. VASCULATURE: Unremarkable. Abdominal aorta is non-dilated. LYMPH NODES: Unremarkable. No enlarged lymph nodes. CT/Abdomen/Pelvis W IV Cont ONLY IMPRESSION: Fluid density mass in the left hemipelvis which may represent an ovarian cyst. No other acute abnormalities are identified. Electronically Signed: Sam Otero MD at 17:16 EDT ,
[2023-05-03 18:20] VITALS: BP 134/78; PULSE 64; RESP 14; TEMP 37; O2SAT 99
[2023-05-03] MEDS: MethylPREDNISolone 125 MG/2 ML Vial 60 MG IV (18:24)
== END 2023-05-03 18:27 | disposition home or self-care (01) ==
PROVIDERS: Emergency Provider Emergency Medicine; PCP Family Medicine; Visit Provider Emergency Medicine
DX: K50.90 Crohn's disease, unspecified, without complications (principal); R10.9 Unspecified abdominal pain; F17.200 Nicotine dependence, unspecified, uncomplicated; G47.30 Sleep apnea, unspecified
CPT/HCPCS: 74177; 80053; 83690; 84703; 85025; 93005; 96361; 96374; 96375; 96376; 99284; J7030; Q9967; J2405

== ENCOUNTER → 2023-05-31 | Outpatient (CLI) | payer OTHER, SELFPAY | END | disposition home or self-care (01) | PROVIDERS: PCP Family Medicine; Visit Provider Obstetrics & Gynecology | DX: L02.214 Cutaneous abscess of groin (principal) | CPT/HCPCS: 87070; 87077; 87186; 87205 ==

== ENCOUNTER 2023-07-23 17:20 | Emergency (ER) | payer OTHER, SELFPAY ==
[2023-07-23 17:21] VITALS: BP 128/67; PULSE 91; RESP 18; TEMP 36.3; O2SAT 98; BMI 27.8
--- NOTE | 2023-07-23 17:55 | CT_ITS ---
STUDY: CT ABDOMEN AND PELVIS WITH CONTRAST REASON FOR EXAM: Female, 37 years old. rlq pain RADIATION DOSAGE (If Supplied By Facility): CTDIvol = ( 15.49 ) mGy, DLP = ( 695.19 ) mGycm TECHNIQUE: Transaxial images were obtained from the dome of the diaphragm to the symphysis pubis without oral contrast. IV 100mL Isovue-300 was administered. Sagittal and coronal images were reconstructed. Individualized dose optimization techniques were used for this CT. COMPARISON: 05/03/2023. FINDINGS: The visualized lung bases are unremarkable. The visualized portions of the heart are within normal limits. Normal liver. Normal gallbladder and extrahepatic biliary system. Normal spleen. Normal pancreas. Normal bilateral adrenal glands. Normal right kidney. Normal left kidney. Evaluation of the GI tract is limited by absence of oral contrast. Cannot exclude stomach wall thickening. No dilated loops of bowel or evidence for obstruction. Cannot exclude segmental thickening of the caldera of the small or large bowel. Cannot exclude enteritis or colitis. There is possible thickening of the wall of the rectosigmoid, difficult to evaluate on this study without oral contrast. Appendix within normal limits. Normal abdominal aorta. Normal inferior vena cava. Normal retroperitoneum. Normal urinary bladder. Normal visualized uterus. Enlarged right ovary with a 2.7 cm probable cyst. Normal abdominal wall. Normal osseous structures. CT/Abdomen/Pelvis W IV Cont ONLY IMPRESSION: Evaluation of the GI tract is limited without oral contrast, especially in patients with known GI condition is such as this patient. There is suggestion of thickening of the wall of the rectosigmoid. Consider further evaluation such as sigmoidoscopy. Enlarged right ovary with a 2.7 cm probable cyst, consider pelvic ultrasound. Electronically Signed: Stoney Negro MD at 19:17 EST ,
--- NOTE | 2023-07-23 17:57 | EX.ED.DYSGE1 ---
HPI <KASHIF Zarate - Last Filed: 07/23/23 20:40> History of Present Illness Chief Complaint: Nausea/Vomiting Narrative Narrative: 37-year-old female with past medical history of Crohn's disease presents with 2 days of right-sided abdominal pain and nausea and vomiting. She states she has vomited about 3 times today. She had a small pebble-like bowel movement yesterday and none today. She states her bowel movements are inconsistent with her Crohn's but she normally goes twice a day. She has no blood or mucus. No fever or chills. She is not on any maintenance medications for her Crohn's disease which was diagnosed in 2014. She had tried a pill before but it did not help. She follows with a GI physician in [facility] in [place]. She has had no abdominal surgeries. PFSH <KASHIF Zarate - Last Filed: 07/23/23 20:40> [facility] Medical History Anxiety Colitis Crohns disease Depression Stephanie Tobar infection Gestational diabetes Left ovarian cyst Sleep apnea Home Medications citalopram 20 mg tablet 30 mg PO DAILY 07/12/21 [History Last Taken Unknown] diphenoxylate-atropine 2.5 mg-0.025 mg tablet (Lomotil) 1 tab PO 4X/DAY PRN PRN diarrhea 5 days #20 tabs 11/22/22 [Rx Last Taken Unknown] promethazine 25 mg tablet 25 mg PO Q6H PRN PRN Nausea #10 TABLETS 02/04/23 [Rx Last Taken Unknown] ondansetron 4 mg disintegrating tablet 4 mg PO Q8H PRN nausea and vomiting 3 days #9 tabs 03/26/23 [Rx Last Taken Unknown] prednisone 20 mg tablet 40 mg (2 x 20 mg) PO DAILY 5 days #10 TABLETS 05/03/23 [Rx Last Taken Unknown] naproxen 500 mg tablet 500 mg PO Q8H #30 tabs 06/20/23 [Rx Last Taken Unknown] oxycodone-acetaminophen 5 mg-325 mg tablet (Percocet) 1 tab PO Q6H PRN pain 3 days #12 tabs 07/23/23 [Rx Last Taken Unknown] Allergy/AdvReac Type Severity Reaction Status Date / Time nectarine Allergy Angioedema Verified 07/23/23 17:20 metoclopramide [From Reglan] AdvReac headache Verified 07/23/23 17:20 Family History Mother Heart disease Pacemaker Grandfather Diabetes Grandmother Diabetes Surgical History History of colonoscopy (~2017) History of colonoscopy (~2017) History of esophagogastroduodenoscopy (EGD) (~2018) History of wisdom tooth extraction Social History household members: spouse Smoking Status: Light Smoker (<10/day) alcohol intake: never substance use type: does not use caffeine: Yes what type of physical activity do you participate in: walking seatbelt use: always do you feel safe at home: Yes additional social history: [employer] ROS <KASHIF Zarate - Last Filed: 07/23/23 20:40> ROS ED ROS Narrative Constitutional: Negative for fever, chills, malaise. CVS: Negative for chest pain. Respiratory: Negative for shortness of breath GI: Positive for abdominal pain, nausea, vomiting. Negative for melena, hematochezia. : Negative for dysuria, frequency. EXAM <KASHIF Zarate - Last Filed: 07/23/23 20:40> Physical Exam Narrative Exam Narrative: CONST: Patient appears uncomfortable but nontoxic. EYES: Normal inspection. ENT: Normal inspection, slightly dry mucous membranes. NECK: Normal inspection. RESP: No respiratory distress, CTAB. CVS: Regular rate and rhythm, no murmur, no gallop. ABD: Soft with RLQ tenderness, no guarding or rebound, nondistended. Normal bowel sounds x 4. SKIN: Color normal, no rash, warm, dry, intact. EXTREMITIES: Normal appearance, no pedal edema. NEURO: Oriented x4. PSYCH: Normal affect. Const Vital Signs: 07/23/23 17:21 Temperature 97.4 F L Temperature Source Temporal Pulse Rate 91 Respiratory Rate 18 Blood Pressure 128/67 H Blood Pressure Mean 87 Pulse Ox 98 Oxygen Delivery Method Room Air <Dr. Haris Smith DO - Last Filed: 07/23/23 20:48> Physical Exam Const Vital Signs: 07/23/23 17:21 Temperature 97.4 F L Temperature Source Temporal Pulse Rate 91 Respiratory Rate 18 Blood Pressure 128/67 H Blood Pressure Mean 87 Pulse Ox 98 Oxygen Delivery Method Room Air MDM <KASHIF Zarate - Last Filed: 07/23/23 20:40> [facility] Narrative Medical decision making narrative: History gathered from: Patient, significant other Patient with history of Crohn's disease presents with 2 days of nausea and vomiting and RLQ pain. She states she has not really had a significant change in her bowel movements and had a small formed bowel movement yesterday. She appears uncomfortable but nontoxic. Vital signs within normal limits. Abdomen is soft with RLQ tenderness and no peritoneal signs. Differential includes Crohn's flare, appendicitis, ovarian etiology. Labs show white count of 13.4, otherwise unremarkable. Urinalysis has ketones but no infection and she was treated with IV fluids. test is negative. CT shows an enlarged right ovary with a 2.7 cm probable cyst which likely is the source of her RLQ pain. Normal appendix. It also notes suggestion of wall thickening of the rectosigmoid and recommended sigmoidoscopy which I think she can do on an outpatient basis. I do not think this represents an acute Crohn's flare as she is not having pain on the left side and is still having normal formed bowel movements without blood or mucus. 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 He has naproxen at home and I prescribed Percocet for breakthrough pain and she was discharged in stable condition. Lab Data Attestation: I reviewed the patient's lab results. Labs: Laboratory Results - last 24 hr 07/23/23 07/23/23 18:15 19:58 WBC 13.4 H RBC 4.89 Hgb 14.0 Hct 42.3 MCV 86.5 MCH 28.6 MCHC 33.1 RDW Std Deviation 41.5 RDW Coeff of Dimitrios 13.2 Plt Count 444 MPV 9.5 Immature Gran % (Auto) 0.300 Neut % (Auto) 57.7 Lymph % (Auto) 33.5 [place] % (Auto) 6.6 Eos % (Auto) 1.2 Baso % (Auto) 0.7 Absolute Neuts (auto) 7.7 Absolute Lymphs (auto) 4.48 Nucleated RBC % 0 Sodium 139 Potassium 3.4 L Chloride 108 H Carbon Dioxide 25.0 Anion Gap 6 BUN 15 Creatinine 0.67 Estim Creat Clear Calc 101.20 Est GFR (MDRD) Af Amer 128 Est GFR (MDRD) Non-Af 106 BUN/Creatinine Ratio 22.3 H Glucose 95 Calcium 9.8 Total Bilirubin 0.40 AST 11 L ALT 16 Alkaline Phosphatase 63 Total Protein 7.6 Albumin 4.4 Globulin 3.2 Albumin/Globulin Ratio 1.4 Serum , Qual NEGATIVE Urine Color Yellow Urine Clarity Sl. Cloudy Urine pH 7.0 Ur Specific [place] 1.005 Urine Protein 30 H Urine Glucose (UA) Normal Urine Ketones 150 A* Urine Occult Blood 10 H Urine Nitrite Negative Urine Bilirubin Negative Urine Urobilinogen Normal Ur Leukocyte Esterase 25 H Urine RBC 0 SEEN Urine WBC 0 SEEN Ur Squamous Epith Cells 0-5 SEEN Urine Bacteria 0 SEEN Urine Mucus 0 SEEN Radiography Diagnostic Testing: Clinical Impression(s) from Imaging Studies Abdomen/Pelvis CT 07/23/23 17:55 IMPRESSION: Evaluation of the GI tract is limited without oral contrast, especially in patients with known GI condition is such as this patient. There is suggestion of thickening of the wall of the rectosigmoid. Consider further evaluation such as sigmoidoscopy. Enlarged right ovary with a 2.7 cm probable cyst, consider pelvic ultrasound. Electronically Signed: Stoney Negro MD at 19:17 EST Reading Location ID and State: [address] [place] [address] , Service support , <Dr. Haris Smith, DO - Last Filed: 07/23/23 20:48> [facility] Lab Data Labs: Laboratory Results - last 24 hr 07/23/23 07/23/23 18:15 19:58 WBC 13.4 H RBC 4.89 Hgb 14.0 Hct 42.3 MCV 86.5 MCH 28.6 MCHC 33.1 RDW Std Deviation 41.5 RDW Coeff of Dimitrios 13.2 Plt Count 444 MPV 9.5 Immature Gran % (Auto) 0.300 Neut % (Auto) 57.7 Lymph % (Auto) 33.5 [place] % (Auto) 6.6 Eos % (Auto) 1.2 Baso % (Auto) 0.7 Absolute Neuts (auto) 7.7 Absolute Lymphs (auto) 4.48 Nucleated RBC % 0 Sodium 139 Potassium 3.4 L Chloride 108 H Carbon Dioxide 25.0 Anion Gap 6 BUN 15 Creatinine 0.67 Estim Creat Clear Calc 101.20 Est GFR (MDRD) Af Amer 128 Est GFR (MDRD) Non-Af 106 BUN/Creatinine Ratio 22.3 H Glucose 95 Calcium 9.8 Total Bilirubin 0.40 AST 11 L ALT 16 Alkaline Phosphatase 63 Total Protein 7.6 Albumin 4.4 Globulin 3.2 Albumin/Globulin Ratio 1.4 Serum , Qual NEGATIVE Urine Color Yellow Urine Clarity Sl. Cloudy Urine pH 7.0 Ur Specific [place] 1.005 Urine Protein 30 H Urine Glucose (UA) Normal Urine Ketones 150 A* Urine Occult Blood 10 H Urine Nitrite Negative Urine Bilirubin Negative Urine Urobilinogen Normal Ur Leukocyte Esterase 25 H Urine RBC 0 SEEN Urine WBC 0 SEEN Ur Squamous Epith Cells 0-5 SEEN Urine Bacteria 0 SEEN Urine Mucus 0 SEEN Radiography Diagnostic Testing: Clinical Impression(s) from Imaging Studies Abdomen/Pelvis CT 07/23/23 17:55 IMPRESSION: Evaluation of the GI tract is limited without oral contrast, especially in patients with known GI condition is such as this patient. There is suggestion of thickening of the wall of the rectosigmoid. Consider further evaluation such as sigmoidoscopy. Enlarged right ovary with a 2.7 cm probable cyst, consider pelvic ultrasound. Electronically Signed: Stoney Negro MD at 19:17 EST , Treatment and Re-Evaluation :: I have personally performed a face to face assessment of the patient and have reviewed the LISET Note. I performed a substantive portion of the visit including all aspects of the following. My cox findings include: History: Patient presents with right lower abdominal pain that has been getting worse over the past 2 days. Patient states it is gradually getting worse. Patient describes it as sharp and stabbing. Patient states it gets better with a heating pad. Patient admits to some nausea and vomiting. Patient denies any hematemesis or coffee-ground emesis. Patient admits to some dysuria but denies any hematuria or frequency. Patient denies any diarrhea, melena, or hematochezia. Exam: Vital signs are stable. Patient is afebrile. Patient is in no acute distress. Oral mucosa is pink and moist. Neck is supple. Trachea is midline. There is no JVD. Heart was regular rate and rhythm. Lungs are clear and equal bilaterally. Abdomen is soft. Bowel sounds are normal. There is mild tenderness over the right upper quadrant and right lower quadrant. There is no rebound or guarding noted. Cranial nerves II through XII are intact. There are no focal motor or sensory deficits noted. Medical Decision Making: Differential diagnosis includes ectopic , ovarian cyst, ureteral calculus, urinary tract infection, Crohn's exacerbation, and gastroenteritis. CT scan of the abdomen pelvis will be obtained to assess for ureteral calculus, bowel obstruction, and perforation. CBC will be obtained to assess for leukocytosis and anemia. Comprehensive metabolic profile will be obtained to assess for electrolyte abnormality, renal function, and hepatic function. Urinalysis will be obtained to assess for urinary tract infection and hematuria. Serum hCG will be obtained to assess for . CBC was reviewed. There is a mild leukocytosis of 13.4. The remainder is within normal limits. Comprehensive metabolic profile was reviewed. Potassium was slightly low at 3.4. Chloride was slightly elevated at 108. The remainder was essentially within normal limits. Serum hCG was reviewed and was negative. Urinalysis was reviewed. There is no evidence of urinary tract infection or hematuria. CT scan of the abdomen pelvis was obtained. There is a 2.7 cm right ovarian cyst. There is no free air or free fluid. Patient was given IV fluids. Patient is feeling better on reevaluation. Patient was advised of her findings. Patient was instructed to follow-up with her primary care physician in 5 to 7 days. Patient understood and was agreeable with the plan. All questions were answered. Discharge Plan Triage Chief Complaint: Nausea/Vomiting ED Midlevel Provider: Genevieve Vaughn ED Provider: Haris Smith Dx/Rx/DC Orders Clinical Impression: Abdominal pain, Cyst of right ovary Instructions: Abdominal Pain, ED Ovarian Cyst Prescriptions: New oxycodone-acetaminophen [Percocet] 5-325 mg tablet 1 tab PO Q6H PRN (Reason: pain) 3 Days Qty: 12 0RF No Action citalopram 20 mg tablet 30 mg PO DAILY Patient Comments: TAKE 1 & 1/2 (ONE AND ONE-HALF) TABLETS BY MOUTH ONCE DAILY diphenoxylate-atropine [Lomotil] 2.5-0.025 mg tablet 1 tab PO 4X/DAY PRN PRN (Reason: diarrhea) 5 Days Qty: 20 0RF promethazine [promethazine] 25 mg tablet 25 mg PO Q6H PRN PRN (Reason: Nausea) Qty: 10 0RF ondansetron 4 mg tablet,disintegrating 4 mg PO Q8H PRN (Reason: nausea and vomiting) 3 Days Qty: 9 0RF prednisone 20 mg tablet 40 mg PO DAILY 5 Days Qty: 10 0RF naproxen 500 mg tablet 500 mg PO Q8H Qty: 30 0RF Primary Care Provider: Azael Lr Referrals: Azael Lr MD [Primary Care Provider] - Disposition Disposition: Home, Self Care
[2023-07-23] MEDS: 0.9% Normal Saline (1000mL) 1,000 ML 999 ML IV (18:08)
[2023-07-23] MEDS: Ondansetron 4 MG/2 ML Vial IV (18:09)
[2023-07-23] MEDS: Morphine 4 MG/ML Syringe IV (18:09)
[2023-07-23 18:22] LABS: Absolute Lymphocyte Count 4.48 X10^3/uL (0.83-4.51); Absolute Neutrophil Count 7.7 X10^3/uL (2.0-7.7); Basophil% 0.7 % (0-1); Eosinophil# 0.16 X10^3/uL; Eosinophils% 1.2 % (0-5); Hematocrit 42.3 % (37-47); Lymphocyte # 4.48 X10^3/ul (0.83-4.51); Lymphocyte % 33.5 % (19-41); Mean Corp Hgb Conc 33.1 g/dL (32-36); Mean Corpuscular Hgb 28.6 pg (27.0-32.0); Mean Corpuscular Volume 86.5 fL (81-99); Mean Platelet Vol. 9.5 fl (6.2-12.0); Monocyte# 0.88 X10^3/uL; Monocyte% 6.6 % (0-10); NRBC Flagged by Analyzer 0 % (0-5); Neutrophil # 7.71 X10^3/uL (2.7-7.7); Neutrophil % 57.7 % (47-70); Platelet Count 444 K/mm3 (150-450); RBC Distribution Width CV 13.2 % (11.6-14.6); RBC Distribution Width SD 41.5 fl (35.1-43.9); Red Blood Count 4.89 M/mm3 (4.2-5.4); White Blood Count 13.4 K/mm3 (4.4-11.0)
[2023-07-23 18:34] LABS: Internal QC Validated? YES +Cl - CLEAR BKGD; Pregnancy, Serum, hCG Quali. NEGATIVE Negative
[2023-07-23 18:42] LABS: ALB/GLOB Ratio 1.4 RATIO (0.9-2.4); AST(SGOT) 11 U/L (15-37); Alanine Aminotransfer ALT/SGPT 16 U/L (13-56); Albumin, Serum 4.4 g/dL (3.2-5.0); Alkaline Phosphatase 63 U/L (45-117); Anion Gap 6 (5-15); BUN 15 mg/dL (7-18); BUN/Creat Ratio 22.3 RATIO (10-20); Calcium,Total 9.8 mg/dL (8.5-10.1); Chloride 108 mmol/L (98-107); Creatinine, Serum 0.67 mg/dL (0.55-1.02); EST Glomerular Filtration Rate 106 mL/min (>60); Est Glom Filt Rate - Afr Amer 128 mL/min (>60); Globulin 3.2 g/dL (2.2-4.2); Glucose 95 mg/dL (74-106); Potassium 3.4 mmol/L (3.5-5.1); Protein, Total 7.6 g/dL (6.4-8.2); Sodium Level 139 mmol/L (136-145)
[2023-07-23] MEDS: Ketorolac 15 MG/ML Vial IV (19:29)
[2023-07-23 20:03] LABS: Bacteria 0 SEEN /hpf (None Seen); Mucous, Urine 0 SEEN /hpf (<or=2+); Red Blood Cells-Urine 0 SEEN /hpf (0-5); White Blood Cells 0 SEEN /hpf (0-5)
[2023-07-23 20:09] LABS: Color, Urine Yellow (Yellow); Glucose, Dipstick Normal (Normal); Leukocyte Esterase-Dipstick 25 /ul (Negative); Nitrite-Dipstick Negative (Negative); Occult Blood-Urine 10 /ul (Negative); Protein-Dipstick 30 mg/dl (Negative); Specific Gravity, Urine 1.005 (1.002-1.030); Urine Bilirubin Dipstick Negative (Negative); Urine Clarity Sl. Cloudy (Clear); Urine Urobilinogen Normal (Normal)
[2023-07-23 20:26] LABS: Ketone-Dipstick 150 mg/dl (Negative)
[2023-07-23 20:28] LABS: Squamous Epithelial Cells - UA 0-5 SEEN /hpf (5-10)
[2023-07-23] MEDS: Oxycodone/Apap 5/325 Tablet PO (20:55)
== END 2023-07-23 20:57 | disposition home or self-care (01) ==
PROVIDERS: Emergency Provider Emergency Medicine; PCP Family Medicine; Visit Provider Emergency Medicine
DX: N83.201 Unspecified ovarian cyst, right side (principal); F17.200 Nicotine dependence, unspecified, uncomplicated; Z87.19 Personal history of other diseases of the digestive system
CPT/HCPCS: 74177; 80053; 81001; 84703; 85025; 96361; 96374; 96375; 99283; J7030; Q9967; A4216; J2405

== ENCOUNTER 2023-11-10 17:56 | Emergency (ER) | payer OTHER, SELFPAY ==
[2023-11-10 17:57] VITALS: BP 128/78; PULSE 102; RESP 20; TEMP 36.4; O2SAT 95; BMI 29.3
[2023-11-10 18:03] VITALS: BP 128/78; PULSE 102; RESP 20; TEMP 36.4; O2SAT 95
--- NOTE | 2023-11-10 18:18 | EKG12_ITS ---
Test Reason : DYSRHYTHMIA Blood Pressure : / mmHG Vent. Rate : 090 BPM Atrial Rate : 090 BPM P-R Int : 140 ms QRS Dur : 092 ms QT Int : 364 ms P-R-T Axes : 063 066 047 degrees QTc Int : 445 ms Normal sinus rhythm Normal ECG Confirmed by Parker Blue ([id number]), editor & co founder JEANNIE MESA ([id number]) on 11/12/2023 7:15:40 AM Referred By: Confirmed By:Parker Blue
--- NOTE | 2023-11-10 18:20 | EDS_ITS ---
HPI History of Present Illness Chief Complaint: Abd Pain Informant: patient Onset/Context/Timing Onset: Yesterday Narrative Narrative: Patient presents with epigastric abdominal pain that wraps around the lower ribs bilaterally with nausea and vomiting. She states she does have a history of Crohn's but this does not feel like her typical flare. She has had some chills but no fever. She has not had a bowel movement the past 2 days. She also reports having palpitations over the past couple days. [facility] Medical History Anxiety Colitis Crohns disease Depression Stephanie Tobar infection Gestational diabetes Left ovarian cyst Sleep apnea Home Medications citalopram 20 mg tablet 30 mg PO DAILY 07/12/21 [History Last Taken Unknown] diphenoxylate-atropine 2.5 mg-0.025 mg tablet (Lomotil) 1 tab PO 4X/DAY PRN PRN diarrhea 5 days #20 tabs 11/22/22 [Rx Last Taken Unknown] promethazine 25 mg tablet 25 mg PO Q6H PRN PRN Nausea #10 TABLETS 02/04/23 [Rx Last Taken Unknown] ondansetron 4 mg disintegrating tablet 4 mg PO Q8H PRN nausea and vomiting 3 days #9 tabs 03/26/23 [Rx Last Taken Unknown] naproxen 500 mg tablet 500 mg PO Q8H #30 tabs 06/20/23 [Rx Last Taken Unknown] dicyclomine 20 mg tablet 20 mg PO 4X/DAY PRN PRN abdominal pain 11/10/23 [History Last Taken Unknown] oxycodone-acetaminophen 5 mg-325 mg tablet (Percocet) 1 tab PO Q8H PRN pain 3 days #10 tabs 11/10/23 [Rx Last Taken Unknown] sucralfate 100 mg/mL oral suspension (Carafate) 10 ml PO BID PRN abdominal pain #400 mL 11/10/23 [Rx Last Taken Unknown] Allergy/AdvReac Type Severity Reaction Status Date / Time nectarine Allergy Angioedema Verified 11/10/23 17:57 metoclopramide [From Reglan] AdvReac headache Verified 11/10/23 17:57 Family History Mother Heart disease Pacemaker Grandfather Diabetes Grandmother Diabetes Surgical History History of colonoscopy (~2017) History of colonoscopy (~2017) History of esophagogastroduodenoscopy (EGD) (~2018) History of wisdom tooth extraction Social History household members: spouse Smoking Status: Light Smoker (<10/day) alcohol intake: never substance use type: does not use caffeine: Yes what type of physical activity do you participate in: walking seatbelt use: always do you feel safe at home: Yes additional social history: [employer] ROS ROS ED Constitutional Constitutional ED: Denies chills or fever(s) Eyes Eyes: Denies discharge from eye(s) ENT ENT ED: Denies discharge from eye(s), rhinorrhea or sore throat Cardiovascular Cardiovascular: Denies chest pain or palpitations Respiratory/Chest Respiratory/Chest: Denies cough or dyspnea Gastrointestinal Gastrointestinal: Reports abdominal pain, nausea and vomiting; Denies diarrhea Genitourinary Genitourinary ED: Denies dysuria Musculoskeletal Musculoskeletal: Reports back pain; Denies extremity pain Integumentary Denies Abrasions or rash Neurologic Neurologic: Denies headache(s) or weakness Psychiatric Psychiatric: Denies anxiety or depression Allergic/Immunologic Allergic/Immunologic ED: Denies lip swelling or urticaria EXAM Physical Exam Const Vital Signs: 11/10/23 17:57 11/10/23 18:03 11/10/23 20:19 Temperature 97.5 F L 97.5 F L 98 F Temperature Source Temporal Temporal Oral Pulse Rate 102 H 102 H 80 Respiratory Rate 20 H 20 H 14 Blood Pressure 128/78 H 128/78 H 135/76 H Blood Pressure Mean 94 94 95 Pulse Ox 95 95 99 Oxygen Delivery Method Room Air Room Air Room Air Positive well nourished and well developed General Appearance ED: well developed HEENT Reports moist mucous membranes Eyes EOMs intact bilaterally Chest Wall inspection of chest normal and palpation of chest normal Resp normal respiratory effort and clear to auscultation bilaterally Cardio Rate: tachycardic GI GI Narrative: Abdomen soft with upper abdominal tenderness. No guarding or rebound. Extremity normal to inspection Neuro oriented x3 and no sensory deficits noted Motor Exam: strength 5/5 throughout Psych mental status grossly normal Skin no rashes or lesions noted MDM MDM MDM Narrative Medical decision making narrative: Patient placed on ekg monitor tech. EKG obtained to evaluate for cardiac arrhythmia/ischemia. IV line initiated. Labwork obtained to evaluate for leukocytosis, anemia, and electrolyte derangement. Patient given morphine, Zofran, and Protonix. IV fluids initiated. History & Record Review Discussion w/independent historian: Patient Lab Data Attestation: I reviewed the patient's lab results. Labs: Laboratory Results - last 24 hr 11/10/23 18:40 WBC 12.2 H RBC 4.95 Hgb 14.1 Hct 43.2 MCV 87.3 MCH 28.5 MCHC 32.6 RDW Std Deviation 42.8 RDW Coeff of Idmitrios 13.4 Plt Count 444 MPV 9.5 Immature Gran % (Auto) 0.500 Neut % (Auto) 60.1 Lymph % (Auto) 29.0 [place] % (Auto) 7.4 Eos % (Auto) 2.0 Baso % (Auto) 1.0 Absolute Neuts (auto) 7.4 Absolute Lymphs (auto) 3.55 Nucleated RBC % 0 Sodium 141 Potassium 3.7 Chloride 104 Carbon Dioxide 28.0 Anion Gap 9 BUN 15 Creatinine 0.66 Estim Creat Clear Calc 119.88 Est GFR (MDRD) Af Amer 130 Est GFR (MDRD) Non-Af 107 BUN/Creatinine Ratio 22.7 H Glucose 96 Calcium 10.1 Total Bilirubin 0.30 Direct Bilirubin 0.06 AST 15 ALT 32 Alkaline Phosphatase 78 Total Protein 7.4 Albumin 3.9 Globulin 3.5 Lipase 41 Serum , Qual NEGATIVE Radiography Diagnostic Testing: Clinical Impression(s) from Imaging Studies Abdomen/Pelvis CT 11/10/23 19:56 IMPRESSION: There is marked thickening of the gastric wall at the inferior may represent gastric ulcer or gastritis. Electronically Signed: Marcus Beyer MD at 21:57 EDT , EKG Initial EKG: Attestation: I personally reviewed and interpreted this EKG as follows: Interpretation: Sinus Rhythm (Sinus at 90 with no acute ischemia.) Treatment and Re-Evaluation :: CBC reveals a white count of 12.2 with normal differential. Hemoglobin 14.1. Chemistry studies unremarkable. LFTs and lipase are normal. test negative. EKG is sinus rhythm with no evidence of acute ischemia. CT scan of the abdomen pelvis with IV contrast reveals thickening of the gastric wall at the inferior aspect which may represent gastric ulcer or gastritis. Patient was initially treated with morphine, Zofran, and Protonix. Due to continued pain she got IM Phenergan and Bentyl. When this did not relieve her symptoms she was given a dose of Dilaudid. At this time patient states her pain is starting to come back. She is given a GI cocktail and another small dose of Dilaudid. Patient states that the GI cocktail significantly helped her symptoms. I will give her a prescription for Carafate and a few Percocet for breakthrough pain. She will be referred to Dr. Alva for GI follow-up, but was made aware that it might take some time to get in. She does have a GI doctor in [place] that she can follow-up with, but would like to get her care transferred here to [place] locally. Discharge Plan Triage Chief Complaint: Abd Pain ED Provider: Niyah Hankins Dx/Rx/DC Orders Clinical Impression: Gastritis Instructions: ED Gastritis (Adult) Prescriptions: New oxycodone-acetaminophen [Percocet] 5-325 mg tablet 1 tab PO Q8H PRN (Reason: pain) 3 Days Qty: 10 0RF sucralfate [Carafate] 100 mg/mL suspension 10 ml PO BID PRN (Reason: abdominal pain) Qty: 400 0RF No Action citalopram 20 mg tablet 30 mg PO DAILY Patient Comments: TAKE 1 & 1/2 (ONE AND ONE-HALF) TABLETS BY MOUTH ONCE DAILY diphenoxylate-atropine [Lomotil] 2.5-0.025 mg tablet 1 tab PO 4X/DAY PRN PRN (Reason: diarrhea) 5 Days Qty: 20 0RF promethazine [promethazine] 25 mg tablet 25 mg PO Q6H PRN PRN (Reason: Nausea) Qty: 10 0RF ondansetron 4 mg tablet,disintegrating 4 mg PO Q8H PRN (Reason: nausea and vomiting) 3 Days Qty: 9 0RF dicyclomine 20 mg tablet 20 mg PO 4X/DAY PRN PRN (Reason: abdominal pain) naproxen 500 mg tablet 500 mg PO Q8H Qty: 30 0RF Primary Care Provider: Azael Lr Referrals: Azael Lr MD [Primary Care Provider] - 1 Week if not improving Jeremiah Alva DO [Med Staff - Active Staff] - As soon as possible Activity Restrictions/Additional Instructions: You can follow-up with your GI doctor in [place] until you can establish care here locally. You have been provided with Dr. Alva's number for referral. These appointments are often booked several months out. Disposition Disposition: Home, Self Care
[2023-11-10] MEDS: Ondansetron 4 MG/2 ML Vial IV (18:36)
[2023-11-10] MEDS: 0.9% Normal Saline (1000mL) 1,000 ML 1000 ML IV (18:37)
[2023-11-10] MEDS: Morphine 4 MG/ML Syringe IV (18:37)
--- OUTSIDE RECORDS SUMMARY | 2023-11-10 18:47 | XMS RPT_ITS | CCD ---
Author Name Unknown Address [address] [place] [address] Organization [facility] Care Team Providers Care Telesales Agent Name Role Phone Milana Lr Kalyan Primary Care Provider Maria Victoria, Milana Kalyan Primary Care Provider Maria Victoria, Milana Kalyan Unavailable Maria Victoria, Milana Kalyan Primary Care Provider Maria Victoria, Milana Kalyan Unavailable Maria Victoria, Milana Kalyan Primary Care Provider Maria Victoria, Milana Kalyan Unavailable [phone] MARIA VICTORIA, MILANA KALYAN Primary Care Unavailfabiana e KRISTOFER ZULUAGA Attending Unavailable KRISTOFER ZULUAGA Attending Unavailable MARIA VICTORIA, MILANA KALYAN Referring Unavailabl e MARIA VICTORIA, MILANA KALYAN Primary Care Unavailabl e LILO MARTINEZ Attending Unavailable MARIA VICTORIA, MILANA KALYAN Primary Care Unavailabl e LAVON DEWITT Attending Unavailable MARIA VICTORIA, MILANA KALYAN Primary Care Unavailabl KRISTOFER Chung Referring Unavailable MARIA VICTORIA, MILANA KALYAN Primary Care Unavailabl e Allergies Allergy Classification Reported Allergen(s) Allergy Type Date of Onset Reaction(s) Facility (19 sources) Morphine; Translations: [MORPHINE] Drug Allergy 5 Other (See Comments), Other: See Comments [place] (2 sources) [place] Propensity to adverse reactions to drug 8 [place] (1 source) Other Propensity to adverse reactions 8 Swelling [place] (17 sources) Metoclopramide; Translations: [METOCLOPRAMIDE ] Drug Allergy 2 Other: See Comments [facility] (17 sources) Other Cadillac-3s; Translations: [OTHER OMEGA-3S] Drug Allergy 8 Swelling [facility] NEGATED: Highlighted row has been ruled out! (1 source) Other Propensity to adverse reactions 8 Swelling [facility] Medications Current Medications Medication Drug Class(es) Dates Sig (Normalized) Sig (Original) baclofen 10 mg oral tablet (1 source) gamma-Aminobutyric Acid-ergic Agonist Start: 04-20-2021 take 1 tablet by mouth three times daily as needed for muscle spasms baclofen (LIORESAL) 10 MG tablet Take 1 tablet by mouth 3 times daily as needed (muscle spasms) 30 tablet 0 04/20/2021 Active cyclobenzaprine hydrochloride 10 mg oral tablet (1 source) Muscle Relaxant Start: 05-22-2021 take 1 tablet by mouth three times daily as needed for muscle spasms cyclobenzaprine (FLEXERIL) 10 MG tablet Take 1 tablet by mouth 3 times daily as needed for Muscle spasms 30 tablet 0 05/22/2021 Active DULoxetine 60 mg delayed release oral capsule (1 source) Serotonin and Norepinephrine Reuptake Inhibitor Start: 07-17-2018 DULoxetine (CYMBALTA) 60 MG extended release capsule Take 60 mg by mouth 0 07/17/2018 Active etodolac 400 mg oral tablet (1 source) Nonsteroidal Anti-inflammatory Drug Start: 05-22-2021 take 1 tablet by mouth twice daily as needed for pain etodolac (LODINE) 400 MG tablet Take 1 tablet by mouth 2 times daily as needed (pain) 60 tablet 0 05/22/2021 Active gabapentin 300 mg oral capsule (1 source) Anti-epileptic Agent gabapentin (NEURONTIN) 300 MG capsule Take 300 mg by mouth daily.. 0 Active Lactobacillus acidophilus (2 sources) Lactobacillus (PROBIOTIC ACIDOPHILUS PO) Take by mouth 0 Active nabumetone 500 mg oral tablet (1 source) Nonsteroidal Anti-inflammatory Drug Start: 04-20-2021 take 1 tablet by mouth twice daily nabumetone (RELAFEN) 500 MG tablet Take 1 tablet by mouth 2 times daily 60 tablet 0 04/20/2021 Active polyethylene glycol 3350 31003 mg powder for oral solution (4 sources) Osmotic Laxative Start: 2021 End: 12-29-2021 polyethylene glycol 3350 (MIRALAX, GLYCOLAX) 17 gram packet Take 1 Packet by mouth once daily. Dissolve dose in 4 - 8 ounces of liquid and take as directed. 30 Packet 0 2021 12/29/2021 Active Completed/Discontinued Medications Medication Drug Class(es) Dates Sig (Normalized) Sig (Original) acetaminophen 325 mg oral tablet (17 sources) acetaminophen (T YLENOL) 325 mg tablet Take 650 mg by mouth. 0 Active Problems Active Problems Problem Classification Problem Date Documented Da te Episodic/Chronic Abdominal pain (20 sources) Right upper quadrant pain; Translations: [Lower abdominal pain] Onset: 7 07-20-2018 Episodic Anxiety disorders (20 sources) Anxiety; Translations: [Mixed anxiety and depressive disorder] Onset: 5 06-09-2015 Chronic Esophageal disorders (16 sources) Gastroesophageal reflux disease; Translations: [Gastro-esophageal reflux disease without esophagitis] 08-14-2018 Chronic Open wounds of extremities (1 source) Laceration without foreign body of right index finger without damage to nail, initial encounter; Translations: [Laceration of right index finger without foreign body without damage to nail, initial encounter] Onset: 4 Episodic Other gastrointestinal disorders (3 sources) Irritable bowel syndrome with diarrhea; Translations: [Irritable bowel syndrome with diarrhea] Chronic Other gastrointestinal disorders (1 source) Irritable bowel syndrome with diarrhea; Translations: [Irritable bowel syndrome with diarrhea] Onset: 3 Chronic Other gastrointestinal disorders (20 sources) Diarrhea; Translations: [Diarrhea, unspecified] 09-10-2016 Episodic Other gastrointestinal disorders (15 sources) Dysphagia; Translations: [Dysphagia, unspecified] 08-14-2018 Episodic Other upper respiratory disease (2 sources) Seasonal allergic rhinitis; Translations: [Other seasonal allergic rhinitis] Onset: 5 06-11-2016 Chronic Other upper respiratory disease (15 sources) Seasonal allergy; Translations: [Other seasonal allergic rhinitis] Onset: 5 08-28-2021 Chronic Regional enteritis and ulcerative colitis (19 sources) Crohn's disease of small intestine; Translations: [Ulcerative colitis] Onset: 7 Resolved: 8 07-20-2018 Chronic Spondylosis; intervertebral disc disorders; other back problems (2 sources) Acute low back pain; Translations: [Low back pain] Onset: 1 Episodic Substance-related disorders (15 sources) Nicotine dependence; Translations: [Nicotine dependence, unspecified, uncomplicated] Onset: 2 11-28-2021 Chronic Superficial injury; contusion (2 sources) Contusion of trunk; Translations: [Contusion of lower back and pelvis, initial encounter] Onset: 1 Episodic Past or Other Problems Problem Classification Problem Date Documented Da te Episodic/Chronic Cardiac dysrhythmias (18 sources) Palpitations; Translations: [Palpitations] Onset: 06-09-2015 06-09-2015 Episodic Nausea and vomiting (20 sources) Nausea and vomiting; Translations: [Nausea with vomiting, unspecified] Onset: 10-01-2016 10-01-2016 Episodic Neoplasms of unspecified nature or uncertain behavior (1 source) Neoplasm of uncertain behavior of skin; Translations: [Neoplasm of uncertain behavior of skin] Onset: 09-21-2020 09-21-2020 Episodic Noninfectious gastroenteritis (18 sources) Colitis; Translations: [Noninfective gastroenteritis and colitis, unspecified] Onset: 06-19-2015 Resolved: 03-03-2018 03-03-2018 Episodic Other complications of (1 source) Maternal tobacco use; Translations: [Smoking (tobacco) complicating , unspecified trimester] Onset: 09-21-2020 09-21-2020 Episodic Other female genital disorders (1 source) Labial cyst; Translations: [Vulvar cyst] Onset: 09-21-2020 09-21-2020 Episodic Other gastrointestinal disorders (2 sources) Diarrhea, unspecified; Translations: [Diarrhea, unspecified type] Onset: 09-10-2016 Episodic Results Test Name Value Interpretation Reference Range Facil ity Vital Signs Date Time Vital Sign Value Performing Clinician Janak bishop 03-14-2023 10:44-0400 Body height 162.6 cm Kristofer Zuluaga MD Work Phone: [facility] 03-14-2023 [id number] Body weight 73.03 kg Kristofer Zuluaga MD Work Phone: [facility] 03-14-2023 10:44-0400 Diastolic blood pressure 79 mm[Hg] Kristofer Zuluaga MD Work Phone: [facility] 03-14-2023 10:44-0400 Heart rate 91 /min Kristofer Zuluaga MD Work Phone: [facility] 03-14-2023 10:44-0400 Systolic blood pressure 114 mm[Hg] Kristofer Zuluaga MD Work Phone: [facility] 12-20-2022 09:27-0400 Body height 162.6 cm Kristofer Zuluaga MD Work Phone: [facility] 12-20-2022 09:27-0400 Body weight 67.13 kg Kristofer Zuluaga MD Work Phone: [facility] 12-20-2022 09:27-0400 Diastolic blood pressure 79 mm[Hg] Kristofer Zuluaga MD Work Phone: [facility] 12-20-2022 09:27-0400 Heart rate 100 /min Kristofer Zuluaga MD Work Phone: [facility] 12-20-2022 09:27-0400 Systolic blood pressure 118 mm[Hg] Kristofer Zuluaga MD Work Phone: [facility] 01-08-2022 09:23-0400 Diastolic blood pressure 76 mm[Hg] Kelechi Linder MD Work Phone: [facility] 01-08-2022 09:23-0400 SaO2% (BldA) [Mass fraction] 100 % Kelechi Linder MD Work Phone: [facility] 01-08-2022 09:23-0400 Systolic blood pressure 131 mm[Hg] Kelechi Linder MD Work Phone: [facility] 01-08-2022 09:03-0400 Respiratory rate 16 /min Kelechi Linder MD Work Phone: [facility] 01-08-2022 08:33-0400 Body temperature 97.9 [degF] Kelechi Linder MD Work Phone: [facility] 01-08-2022 08:33-0400 Heart rate 78 /min Kelechi Linder MD Work Phone: [facility] 01-08-2022 07:31-0400 Body height 162.6 cm Kelechi Linder MD Work Phone: [facility] 01-08-2022 07:31-0400 Body weight 68.04 kg Kelechi Linder MD Work Phone: [facility] 12-26-2021 14:45-0400 Body height 162.6 cm Kelechi Linder MD Work Phone: [facility] 12-26-2021 14:45-0400 Body weight 69.04 kg Kelechi Linder MD Work Phone: [facility] 12-26-2021 14:45-0400 Diastolic blood pressure 66 mm[Hg] Kelechi Linder MD Work Phone: [facility] 12-26-2021 14:45-0400 Heart rate 94 /min Kelechi Linder MD Work Phone: [facility] 12-26-2021 14:45-0400 SaO2% (BldA) [Mass fraction] 99 % Kelechi Linder MD Work Phone: [facility] 12-26-2021 14:45-0400 Systolic blood pressure 124 mm[Hg] Kelechi Linder MD Work Phone: [facility] Encounters Encounter Date Encounter Type Care Provider Facility Start: 09-17-2023 End: 09-17-2023 ambulatory LAVON DEWITT Facility:[facility] Start: 09-08-2023 End: 09-08-2023 Emergency department patient visit LILO NCKLAIRSSA Facility:[facility] Start: 06-11-2023 Telephone encounter [facility] Procedures Date Procedure Procedure Detail Performing Clinician Start: 03-13-2023 Breath hydrogen/meth ane test Kristofer Zuluaga MD Work Phone: Start: 01-16-2022 Gastric emptying giovanny ging study Kelechi Linder MD Work Phone: Start: 01-08-2022 Urine test visual color cmprsn meths Susana Burton PRINTED CIRCUIT DESIGNER.SHOE REPAIRER Work Phone: Start: 02-05-2020 VL MESENTERIC ARTERY DUPLEX SCAN Milana Lr Work Phone: Start: 10-02-2019 Microscopic observat ion [Identifier] in Cervix by Cyto stain Milana Lr MD Work Phone: Plan of Treatment Date Care Activity Detail Author Start: 2047 HEPATITIS B (1 of 3 - Risk 3-dose series) HEPATITIS B (1 of 3 - Risk 3-dose series) [facility] Start: 2047 Hepatitis B Vaccine (1 of 3 - Risk 3-dose series) Hepatitis B Vaccine (1 of 3 - Risk 3-dose series) [facility] Start: 05-19-2029 DTaP/Tdap/Td vaccine (2 - Td or Tdap) DTaP/Tdap/Td vaccine (2 - Td or Tdap) [facility] Work Phone: Start: 05-19-2029 DTaP/Tdap/Td vaccine (2 - Td) DTaP/Tdap/Td vaccine (2 - Td) [place] Start: 05-03-2023 Influenza vaccination [facility] Start: 03-14-2023 End: 05-14-2023 PANC ELASTASE, FECAL PANC ELASTASE, FECAL Lab Routine Diarrhea, unspecified type Expected: 03/14/2023, Expires: 05/14/2023 [facility] Work Phone: Immunizations Immunization Date Immunization Notes Care Provider Fa cility 05-19-2019 tetanus toxoid, redu genia diphtheria toxoid, and acellular pertussis vaccine, adsorbed Milana Lr MD Work Phone: [facility] Work Phone: Payers Date Payer Category Payer Unknown HOSPITAL/MEDICAL GENERIC MEDICAL GENERIC [id number] 2021-Present [phone] [address] [place] [address] Indemnity [id number] 2021 Private Health Insurance [facility] CHOICE PLUS [id number] 2021-Present [phone] [address] [place] [address] HMO [id number] 2021 Private Health Insurance [facility] CHOICE PLUS [id number] 2021-Present [phone] [address] [place] [address] HMO [id number] 2021 Unknown AMFIRST AMFIRST 2ND [id number] 2021-Present [phone] [address] [place] [address] Indemnity [id number] 2021 Unknown [id number] 2021 Unknown [id number] 2015 Unknown BCBS [place] P PO xxxxxxxxxxxx 2015-Present [address] [place] [address] xxxxxxxxxxxx [id number] 2015 Unknown BC[place] P PO [id number] 2015-Present [address] [place] [address] [id number] Social History Date Type Detail Facility Start: 12-01-2018 End: 01-08-2022 Tobacco smoking status NHIS [facility] Start: 03-03-2004 End: 09-02-2018 [facility] Start: 12-01-2018 End: 03-14-2023 Cigarettes smoked current (pack per day) - Reported [facility] Start: 12-01-2018 End: 05-22-2021 Alcohol intake Current drink[facility] of alcohol (finding) [facility] Start: 06-09-2015 Alcohol Comment occ [facility] Start: 1985 Sex Assigned At Not on file [facility] Start: 05-22-2021 Tobacco smoking stat us NHIS Former smoker [facility] Work Phone: Start: 03-03-2004 End: 09-02-2018 History of tobacco use Current smoker [facility] Start: 05-22-2021 End: 01-08-2022 Tobacco use and exposure Never used [facility] Start: 04-20-2021 History SDOH Alcohol Frequency 1 [facility] Work Phone: Start: 04-20-2021 History SDOH Financial 5 [facility] Work Phone: Start: 04-20-2021 History SDOH Transpo rt Med 2 [facility] Work Phone: Start: 11-13-2021 End: 06-18-2022 Exposure to SARS-CoV-2 (event) Not sure [facility] Start: 11-23-2021 End: 03-14-2023 Alcohol intake Current non-drinker of alcohol (finding) [facility] Start: 12-20-2022 End: 03-14-2023 Tobacco use panel [facility] Date Patient Goal Desired Activity /State Clinical Notes 12-25-2021 to 09-17-2023 Telephone Encounter - Michelle Vega MD - 06/11/2023 2:49 PM EDTTelephone Encounter - Milton Plunkett - 06/11/2023 9:29 AM Kristofer Finnegan MD - 03/14/2023 11:18 AM EDT Note Date & Type Note Facility 09-17-2023 Note HNO ID: [id number] Author: LAVON DEWITT APRN.CNP Service: ? Author Type: Nurse Practitioner Type: Progress Notes Filed: 09/17/2023 10:54 Note Text: Department of Dermatology Lavon Dewitt APRN.SHOE REPAIRER 09/17/2023 Last visit in Dermatology: Visit date not found Objective/Assessment/Plan 1. Hidradenitis suppurativa Left Inguinal Area, Pubic, Right Inguinal Area Tender nodules, furuncles and comedones with hyperpigmented scarring Discussed etiology, reassured, and educated. Discussed chronic/relapsing nature of condition Recommend Hibiclens 4% wash to affected areas daily. Recommend Clindamycin 1% lotion to affected areas daily. Start Doxycyline 20 twice daily x 3 months Patient was counseled on potential side effects including GI upset, pill-induced esophagitis, and increased sun sensitivity. Recommend ILK to inflammatory lesion today. PROCEDURE: INTRALESIONAL KENALOG (ILK) INJECTION Plan: ILK 10 mg/mL x 0.5 cc over 1 total lesion(s) on the right inguinal fold after cleansing with alcohol. Warned risk of atrophy and pigmentary changes. Wound care instructions given, patient verbalized understanding. Related Medications Clindamycin Phosphate (CLEOCIN T) 1 % lotion Apply to affected areas twice daily doxycycline 20 mg tablet Take 1 tablet by mouth two times a day. triamcinolone acetonide 10 mg injection (KeNALog 10) chlorhexidine (HIBICLENS) 4 % external liquid Wash affected area one to two times daily 2. Skin pain Follow-up as noted below or as needed. Chief Complaint: Patient presents with: New Patient: Bumps in groin area. Subjective and Objective HPI: Armin Vivas is a 37 year old female who presents for: For individual lesion(s). Lesion(s): Bumps Location(s): Groin area both sides Duration: 4 years Symptoms: throbbing and sharp Severity: Throbbing and sharp Inciting factors: Blood and puss come out daily Associated symptoms/previous treatments: Antibiotics with no relief, and have been drained in the past. Past treatments: Doxycyline - Notes that she flares around her period. Past medical history is reviewed. Medication list is reviewed. Physical Exam included: External genitals Ban Delarosa APRN.SHOE REPAIRER (training) I have seen and evaluated the patient and discussed the case with the PA/COMPUTER GRAPHIC DESIGNER trainee. I agree with the assessment and plan as documented in the PA/COMPUTER GRAPHIC DESIGNER's note. Lavon Dewitt APRN.SHOE REPAIRER [facility] 06-11-2023 Miscellaneous Notes OUTSIDE MEDICAL RECORD REVIEW AND SUMMARY Referring Provider/Address: No referring provider defined for this encounter. Specialty: Women's Health Patient's Location: [address] [place] [address] Pages of records reviewed: < 10 Problem: Rash Duration: unknown Anatomic location: groin Diagnosis (es): hidradenitis suppurativa Is it biopsy proven: No DIAGNOSTIC TESTS: Prior Biopsies: None Other Tests: Culture Gram stain: 4+ WBC, 3+ Gram positive cocci, 2+ RBC, No epithelial cells, No gram negative diplococci Wound culture: rare Staph epidermidis Erythromycin R Gentamicin S Levofloxacin S Linazolid S Oxacillin R Tetracycline S Vancomycin S Relevant Labs: None Patch Testing done: No Prior Therapies: Doxycycline Assessment: 37 year old female who is referred for a 2nd opinion for hidradenitis suppurativa. Recommendation for Dermatology Appointment: Live Appointment to be scheduled with Provider: [facility] Dermatology Team Recommendation for Appointment Type: LIVE Appointment Location: Main Appointment Duration: 2 slot Appointment Notes: schedule appointment for 2nd opinion hidradenitis suppurativa Appointment Triage: first available Recommendations for Interdepartmental Collaboration: Need appointment with None - further referrals pending in person evaluation Michelle Vega MD June 11, 2023 2:49 PM Received omr Scanned to chart documented in this encounter [facility] 03-14-2023 Note HNO ID: [id number] Author: Kristofer Zuluaga MD Service: ? Author Type: Physician Type: Progress Notes Filed: 03/14/2023 11:28 AM Note Text: HPI: Armin Vivas is a 37 year old female who presents for follow up of F/U 3 Month. Ptis here for a f/up. Diarrhea is less, but still has 4-5 per day per hx. Nausea has been better, but still has bloating, a lot of htburn per pt. Pt does smoke 1/2 ppd. Glucose breath test neg. 13# wt gain since last OV. Current Outpatient Medications Medication Sig dicyclomine (BENTYL) 20 mg tablet Take 1 tablet by mouth four times daily as needed. ondansetron orally disintegrating (ZOFRAN ODT) 4 mg disintegrating tablet Take 1 tablet by mouth every 8 hours as needed for nausea/vomiting. QUEtiapine (SEROQUEL) 25 mg tablet Take 25 mg by mouth daily at bedtime. promethazine (PHENERGAN) 12.5 mg tablet TAKE 1 TABLET BY MOUTH EVERY 6 HOURS NEEDED ondansetron (ZOFRAN) 4 mg tablet Take 1 tablet by mouth every 8 hours as needed. ALPRAZolam (XANAX) 1 mg tablet Take 1 mg by mouth four times daily as needed. citalopram hydrobromide (CELEXA ORAL) Take 30 mg by mouth. acetaminophen (TYLENOL) 325 mg tablet Take 650 mg by mouth. fluticasone (FLONASE) 50 mcg/actuation nasal spray Use 1 [place] in the nose. Loperamide HCl (IMODIUM) 2 mg tab Take 1 tablet by mouth four times daily as needed. L.ACIDOPH/B.LONG/L.PLANT/B.LAC (PROBIOTIC ACIDOPHILUS BEADS ORAL) Take by mouth. Cetirizine 10 mg cap Take 10 mg by mouth once daily. pantoprazole DR (PROTONIX) 40 mg tablet Take 1 tablet by mouth twice daily. No current facility-administered medications for this visit. ALLERGIES Allergen Reactions Morphine Other: See Comments Heart feels funny , has safely taken percocet, dilaudid Other Cadillac-3s Swelling NECTARINES Reglan [Metoclopram* Other: See Comments Blurry vision REVIEW OF SYSTEMS: GENERAL: No weight loss, malaise or fevers. HEENT: Negative for frequent or significant headaches, No changes in hearing or vision, no nose bleeds or other nasal problems. NECK: Negative for lumps, goiter, pain and significant neck swelling. RESPIRATORY: Negative for cough, hemoptysis, wheezing or shortness of breath CARDIOVASCULAR: Negative for chest pain, leg swelling or palpitations GI: See HPI : No history of dysuria, frequency or incontinence MUSCULOSKELETAL: Negative for joint pain or swelling, back pain or muscle pain. SKIN: Negative for lesions, rash, and itching PSYCH: Negative for sleep disturbance, mood disorder and recent psychosocial stressors NEURO: No history of headaches, syncope, paralysis, seizures or tremors PHYSICAL EXAMINATION: BP 114/79 Pulse 91 Ht 5' 4 (1.63m) Wt 161 lb (73.0kg) LMP 06/02/2022 BMI 27.62 kg/(m2). GENERAL APPEARANCE: Well appearing, alert, in no acute distress, well-hydrated, well nourished. EYES: No icterus ABDOMEN: Normal, soft, non-tender, no masses or organomegaly. ASSESSMENT AND PLAN: ASSESSMENT/PLAN: 1. Diarrhea, unspecified type - ICD9: 787.91, ICD10: R19.7 (primary diagnosis) - PANC ELASTASE, FECAL 2. Irritable bowel syndrome with diarrhea - ICD9: 564.1, ICD10: K58.0 - consider trial of Viberzi if above neg 3. Nausea - ICD9: 787.02, ICD10: R11.0 - better - glucose breath test neg for SIBO. Kristofer Zuluaga MD [facility] 03-14-2023 History of Presen t illness Narrative HPI: Armin Vivas is a 37 year old female who presents for follow up of F/U 3 Month. Ptis here for a f/up. Diarrhea is less, but still has 4-5 per day per hx. Nausea has been better, but still has bloating, a lot of htburn per pt. Pt does smoke 1/2 ppd. Glucose breath test neg. 13# wt gain since last OV. Current Outpatient Medications Medication Sig dicyclomine (BENTYL) 20 mg tablet Take 1 tablet by mouth four times daily as needed. ondansetron orally disintegrating (ZOFRAN ODT) 4 mg disintegrating tablet Take 1 tablet by mouth every 8 hours as needed for nausea/vomiting. QUEtiapine (SEROQUEL) 25 mg tablet Take 25 mg by mouth daily at bedtime. promethazine (PHENERGAN) 12.5 mg tablet TAKE 1 TABLET BY MOUTH EVERY 6 HOURS NEEDED ondansetron (ZOFRAN) 4 mg tablet Take 1 tablet by mouth every 8 hours as needed. ALPRAZolam (XANAX) 1 mg tablet Take 1 mg by mouth four times daily as needed. citalopram hydrobromide (CELEXA ORAL) Take 30 mg by mouth. acetaminophen (TYLENOL) 325 mg tablet Take 650 mg by mouth. fluticasone (FLONASE) 50 mcg/actuation nasal spray Use 1 [place] in the nose. Loperamide HCl (IMODIUM) 2 mg tab Take 1 tablet by mouth four times daily as needed. L.ACIDOPH/B.LONG/L.PLANT/B.LAC (PROBIOTIC ACIDOPHILUS BEADS ORAL) Take by mouth. Cetirizine 10 mg cap Take 10 mg by mouth once daily. pantoprazole DR (PROTONIX) 40 mg tablet Take 1 tablet by mouth twice daily. No current facility-administered medications for this visit. ALLERGIES Allergen Reactions Morphine Other: See Comments Heart feels funny , has safely taken percocet, dilaudid Other Cadillac-3s Swelling NECTARINES Reglan [Metoclopram* Other: See Comments Blurry vision REVIEW OF SYSTEMS: GENERAL: No weight loss, malaise or fevers. HEENT: Negative for frequent or significant headaches, No changes in hearing or vision, no nose bleeds or other nasal problems. NECK: Negative for lumps, goiter, pain and significant neck swelling. RESPIRATORY: Negative for cough, hemoptysis, wheezing or shortness of breath CARDIOVASCULAR: Negative for chest pain, leg swelling or palpitations GI: See HPI : No history of dysuria, frequency or incontinence MUSCULOSKELETAL: Negative for joint pain or swelling, back pain or muscle pain. SKIN: Negative for lesions, rash, and itching PSYCH: Negative for sleep disturbance, mood disorder and recent psychosocial stressors NEURO: No history of headaches, syncope, paralysis, seizures or tremors PHYSICAL EXAMINATION: BP 114/79 Pulse 91 Ht 5' 4 (1.63m) Wt 161 lb (73.0kg) LMP 06/02/2022 BMI 27.62 kg/(m^2). GENERAL APPEARANCE: Well appearing, alert, in no acute distress, well-hydrated, well nourished. EYES: No icterus ABDOMEN: Normal, soft, non-tender, no masses or organomegaly. ASSESSMENT AND PLAN: ASSESSMENT/PLAN: 1. Diarrhea, unspecified type - ICD9: 787.91, ICD10: R19.7 (primary diagnosis) - PANC ELASTASE, FECAL 2. Irritable bowel syndrome with diarrhea - ICD9: 564.1, ICD10: K58.0 - consider trial of Viberzi if above neg 3. Nausea - ICD9: 787.02, ICD10: R11.0 - better - glucose breath test neg for SIBO. Kristofer Zuluaga MD documented in this encounter [facility] 03-13-2023 Note HNO ID: [id number] Author: Mitzi Howard RN Service: ? Author Type: Registered Nurse Type: Progress Notes Filed: 03/13/2023 3:44 PM Note Text: Name: Armin Vivas [facility]#: [id number] Date: 03/13/2023 GLUCOSE - BREATH HYDROGEN AND METHANE TEST Indication: Bloating, Abdominal Pain, and Diarrhea Pain Assessment: No pain is present. Test Preparation: NPO for since last evening. No antibiotics or Pepto Bismol have been taken during the last 4 weeks. No colonscopy within the last 3-4 weeks A 75g Glucose solution was given. Breath samples were taken every 15 minutes for 1 hour and 30 minutes. The GLUCOSE breath hydrogen/methane test was completed. .Mitzi Howard RN [facility] 03-13-2023 History of Presen t illness Narrative Name: Armin Vivas [facility]#: [id number] Date: 03/13/2023 GLUCOSE - BREATH HYDROGEN & METHANE TEST Indication: Bloating, Abdominal Pain, and Diarrhea Pain Assessment: No pain is present. Test Preparation: NPO for since last evening. No antibiotics or Pepto Bismol have been taken during the last 4 weeks. No colonscopy within the last 3-4 weeks A 75g Glucose solution was given. Breath samples were taken every 15 minutes for 1 hour and 30 minutes. The GLUCOSE breath hydrogen/methane test was completed. .Mitzi Howard RN documented in this encounter [facility] 12-20-2022 Note HNO ID: [id number] Author: Kristofer Zuluaga MD Service: ? Author Type: Physician Type: Progress Notes Filed: 12/20/2022 9:54 AM Note Text: HPI: Armin Vivas is a 37 year old female who presents for No chief complaint on file. Pt used to be a pt of DR. Sheikh. Last encounter was colonoscopy last Spring. Pt is here for diarrhea, already gone 4x's this AM which is her avg. No blood, has lower pain comes and goes. Had viral gastroenteritis 2 wks ago. Pt does has htburn and has some dysphagia to solids and meds at times. Pantoprazole daily helps incompletely though. No wt loss, some nausea. As had these sxs for yrs. Pt had a colonoscopy which revealed int hemorrhoids, random bx's neg. W/up has been neg for IBD, GES nl, EGD suggestive of gastroparesis w retained food, but trial of Reglan had s effects of blurry vision, HAs. Bentyl does help w stomach cramping. Current Outpatient Medications Medication Sig dicyclomine (BENTYL) 20 mg tablet Take 1 tablet by mouth three times daily. QUEtiapine (SEROQUEL) 25 mg tablet Take 25 mg by mouth daily at bedtime. promethazine (PHENERGAN) 12.5 mg tablet TAKE 1 TABLET BY MOUTH EVERY 6 HOURS NEEDED ondansetron (ZOFRAN) 4 mg tablet Take 1 tablet by mouth every 8 hours as needed. hyoscyamine SR (LEVBID) 0.375 mg 12 hr tablet TAKE 1 TABLET BY MOUTH TWICE DAILY pantoprazole DR (PROTONIX) 40 mg tablet Take 1 tablet by mouth twice daily. predniSONE (DELTASONE) 10 mg tablet Please take 4 tabs daily for 3 days, then 3 tabs daily for 3 days, then 2 tabs daily for 3 days, then 1 tab daily for 3 days, then 0.5 tabs daily for 4 days (take with food). (Patient not taking: Reported on 12/26/2021 ) prazosin (MINIPRESS) 1 mg cap Take 1 mg by mouth three times daily. (Patient not taking: Reported on 12/26/2021 ) traZODone (DESYREL) 50 mg tablet Take 50 mg by mouth daily at bedtime. ALPRAZolam (XANAX) 1 mg tablet Take 1 mg by mouth four times daily as needed. promethazine (PHENERGAN) 25 mg tablet Take 1 tablet by mouth every 4 hours as needed for nausea/vomiting. citalopram hydrobromide (CELEXA ORAL) Take 30 mg by mouth. acetaminophen (TYLENOL) 325 mg tablet Take 650 mg by mouth. fluticasone (FLONASE) 50 mcg/actuation nasal spray Use 1 [place] in the nose. Loperamide HCl (IMODIUM) 2 mg tab Take 1 tablet by mouth four times daily as needed. L.ACIDOPH/B.LONG/L.PLANT/B.LAC (PROBIOTIC ACIDOPHILUS BEADS ORAL) Take by mouth. Cetirizine 10 mg cap Take 10 mg by mouth once daily. No current facility-administered medications for this visit. PAST MEDICAL HISTORY Diagnosis Date Abdominal pain Anxiety C. difficile diarrhea Colitis Dx not confirmed 2012, 1 episode Crohn's colitis (HCC) Depression Diarrhea Dysphagia GERD (gastroesophageal reflux disease) Nausea AND vomiting Ulcerative colitis (HCC) PAST SURGICAL HISTORY Procedure Laterality Date COLONOSCOPY 2017 EGD FAMILY HISTORY Problem Relation Age of Onset Coronary Artery Disease Mother Hx [place] age 45 Diabetes Maternal Grandmother Social History Tobacco Use Smoking status: Every Day Packs/day: 0.50 Types: Cigarettes Smokeless tobacco: Never Vaping Use Vaping Use: Never used Substance Use Topics Alcohol use: No Drug use: No ALLERGIES Allergen Reactions Morphine Other: See Comments Heart feels funny , has safely taken percocet, dilaudid Other Cadillac-3s Swelling NECTARINES Reglan [Metoclopram* Other: See Comments Blurry vision REVIEW OF SYSTEMS GENERAL: No weight loss, malaise or fevers. HEENT: Negative for frequent or significant headaches, No changes in hearing or vision, no nose bleeds or other nasal problems. NECK: Negative for lumps, goiter, pain and significant neck swelling. RESPIRATORY: Negative for cough, hemoptysis, wheezing or shortness of breath CARDIOVASCULAR: Negative for chest pain, leg swelling or palpitations GI: See HPI : No history of dysuria, frequency or incontinence MUSCULOSKELETAL: Negative for joint pain or swelling, back pain or muscle pain. SKIN: Negative for lesions, rash, and itching PSYCH: Negative for sleep disturbance, mood disorder and recent psychosocial stressors NEURO: No history of headaches, syncope, paralysis, seizures or tremors PHYSICAL EXAMINATION: BP 118/79 Pulse 100 Ht 5' 4 (1.63m) Wt 148 lb (67.1kg) LMP 06/02/2022 BMI 25.39 kg/(m2). GENERAL APPEARANCE: Well appearing, alert, in no acute distress, well-hydrated, well nourished.. SKIN: Skin color, texture, turgor normal, no suspicious rashes or lesions. EYES: Anicteric sclera. Pupils are equally round and reactive to light. Extraocular movements are intact. . NECK: Supple, no adenopathy; thyroid symmetric, normal size, no bruits. LUNGS: Lungs clear to auscultation. No wheezing, rhonchi, rales. HEART: RRR without murmur, gallop, or rubs. No ectopy. ABDOMEN: Normal, soft, non-tender, no masses or organomegaly. (more content not included)... [facility] 12-20-2022 History of Presen t illness Narrative HPI: Armin Vivas is a 37 year old female who presents for No chief complaint on file. Pt used to be a pt of DR. Linder'merissa. Last encounter was colonoscopy last Spring. Pt is here for diarrhea, already gone 4x's this AM which is her avg. No blood, has lower pain comes and goes. Had viral gastroenteritis 2 wks ago. Pt does has htburn and has some dysphagia to solids and meds at times. Pantoprazole daily helps incompletely though. No wt loss, some nausea. As had these sxs for yrs. Pt had a colonoscopy which revealed int hemorrhoids, random bx's neg. W/up has been neg for IBD, GES nl, EGD suggestive of gastroparesis w retained food, but trial of Reglan had s effects of blurry vision, HAs. Bentyl does help w stomach cramping. Current Outpatient Medications Medication Sig dicyclomine (BENTYL) 20 mg tablet Take 1 tablet by mouth three times daily. QUEtiapine (SEROQUEL) 25 mg tablet Take 25 mg by mouth daily at bedtime. promethazine (PHENERGAN) 12.5 mg tablet TAKE 1 TABLET BY MOUTH EVERY 6 HOURS NEEDED ondansetron (ZOFRAN) 4 mg tablet Take 1 tablet by mouth every 8 hours as needed. hyoscyamine SR (LEVBID) 0.375 mg 12 hr tablet TAKE 1 TABLET BY MOUTH TWICE DAILY pantoprazole DR (PROTONIX) 40 mg tablet Take 1 tablet by mouth twice daily. predniSONE (DELTASONE) 10 mg tablet Please take 4 tabs daily for 3 days, then 3 tabs daily for 3 days, then 2 tabs daily for 3 days, then 1 tab daily for 3 days, then 0.5 tabs daily for 4 days (take with food). (Patient not taking: Reported on 12/26/2021 ) prazosin (MINIPRESS) 1 mg cap Take 1 mg by mouth three times daily. (Patient not taking: Reported on 12/26/2021 ) traZODone (DESYREL) 50 mg tablet Take 50 mg by mouth daily at bedtime. ALPRAZolam (XANAX) 1 mg tablet Take 1 mg by mouth four times daily as needed. promethazine (PHENERGAN) 25 mg tablet Take 1 tablet by mouth every 4 hours as needed for nausea/vomiting. citalopram hydrobromide (CELEXA ORAL) Take 30 mg by mouth. acetaminophen (TYLENOL) 325 mg tablet Take 650 mg by mouth. fluticasone (FLONASE) 50 mcg/actuation nasal spray Use 1 [place] in the nose. Loperamide HCl (IMODIUM) 2 mg tab Take 1 tablet by mouth four times daily as needed. L.ACIDOPH/B.LONG/L.PLANT/B.LAC (PROBIOTIC ACIDOPHILUS BEADS ORAL) Take by mouth. Cetirizine 10 mg cap Take 10 mg by mouth once daily. No current facility-administered medications for this visit. PAST MEDICAL HISTORY Diagnosis Date Abdominal pain Anxiety C. difficile diarrhea Colitis Dx not confirmed 2012, 1 episode Crohn's colitis (HCC) Depression Diarrhea Dysphagia GERD (gastroesophageal reflux disease) Nausea & vomiting Ulcerative colitis (HCC) PAST SURGICAL HISTORY Procedure Laterality Date COLONOSCOPY 2016 EGD FAMILY HISTORY Problem Relation Age of Onset Coronary Artery Disease Mother Hx [place] age 45 Diabetes Maternal Grandmother Social History Tobacco Use Smoking status: Every Day Packs/day: 0.50 Types: Cigarettes Smokeless tobacco: Never Vaping Use Vaping Use: Never used Substance Use Topics Alcohol use: No Drug use: No ALLERGIES Allergen Reactions Morphine Other: See Comments Heart feels funny , has safely taken percocet, dilaudid Other Cadillac-3s Swelling NECTARINES Reglan [Metoclopram* Other: See Comments Blurry vision REVIEW OF SYSTEMS GENERAL: No weight loss, malaise or fevers. HEENT: Negative for frequent or significant headaches, No changes in hearing or vision, no nose bleeds or other nasal problems. NECK: Negative for lumps, goiter, pain and significant neck swelling. RESPIRATORY: Negative for cough, hemoptysis, wheezing or shortness of breath CARDIOVASCULAR: Negative for chest pain, leg swelling or palpitations GI: See HPI : No history of dysuria, frequency or incontinence MUSCULOSKELETAL: Negative for joint pain or swelling, back pain or muscle pain. SKIN: Negative for lesions, rash, and itching PSYCH: Negative for sleep disturbance, mood disorder and recent psychosocial stressors NEURO: No history of headaches, syncope, paralysis, seizures or tremors PHYSICAL EXAMINATION: BP 118/79 Pulse 100 Ht 5' 4 (1.63m) Wt 148 lb (67.1kg) LMP 06/02/2022 BMI 25.39 kg/(m^2). GENERAL APPEARANCE: Well appearing, alert, in no acute distress, well-hydrated, well nourished.. SKIN: Skin color, texture, turgor normal, no suspicious rashes or lesions. EYES: Anicteric sclera. Pupils are equally round and reactive to light. Extraocular movements are intact. . NECK: Supple, no adenopathy; thyroid symmetric, normal size, no bruits. LUNGS: Lungs clear to auscultation. No wheezing, rhonchi, rales. HEART: RRR without murmur, gallop, or rubs. No ectopy. ABDOMEN: Normal, soft, non-tender, no masses or organomegaly. EXTREMITIES: No deformities, edema, skin discoloration, clubbing or cyanosis. NEUROLOGIC: Gait normal. Sensation and strength grossly intact.. ASSESSMENT AND PLAN: ASSESSMENT/PLAN: 1. Diarrhea, unspecified type - ICD9: 787.91, ICD10: R19.7 (primary diagnosis) - has had extensive w/up. - PANC ELASTASE, FECAL - BREATH TEST GLUCOSE 2. Irritable bowel syndrome with diarrhea - ICD9: 564.1, ICD10: K58.0 - DICYCLOMINE 20 MG TABLET 3. Nausea and vomiting, unspecified vomiting type - ICD9: 787.01, ICD10: R11.2 - BREATH TEST GLUCOSE Kristofer Zuluaga MD documented in this encounter [facility] 01-23-2022 Miscellaneous Notes The following approved medication requests have been transmitted electronically. Signed Prescriptions Disp Refills promethazine (PHENERGAN) 12.5 mg tablet 100 tablet 3 Sig: TAKE 1 TABLET BY MOUTH EVERY 6 HOURS NEEDED BRIANDA: No Authorizing Provider: KELECHI LINDER MD documented in this encounter [facility] 01-16-2022 Miscellaneous Notes Patient notified and verbalized understanding. Sridevi Lozano MA January 16, 2022 4:28 PM Have patient continue taking Zofran prn She needs f/u in 3 mos with me at new office or with Dr. Zuluaga/Black Thanks Patient notified and verbalized understanding. Patient states nausea is the same, not any worse. Sridevi Lozano MA January 16, 2022 2:14 PM Tell pt that her stomach emptying is normal How is her nausea? Thanks documented in this encounter [facility] 01-16-2022 History of Presen t illness Narrative RADIOLOGY SERVICE PROGRESS NOTE SERVICE DATE: 01/16/2022 SERVICE TIME: 7:36 AM PATIENT IDENTITY VERIFICATION COMPLETED USING TWO (2) STANDARD IDENTIFIERS: Name and Date of confirmed by patient verbally FALL SCREENING: Has the patient had 2 falls in the last year or 1 fall with injury or currently using an Ambulatory Assistive Device (Walker, Cane, Wheelchair, Crutches, etc.)? No PATIENT GENDER DATA: .female : No ALLERGIES: Reviewed and unchanged MEDICATIONS REVIEWED: Yes PATIENT RELEVANT IMPLANT DATA REVIEWED: Not Applicable CREATININE: Creatinine Date Value Ref Range Status 11/28/2021 0.58 0.58 - 0.96 mg/dL Final 11/25/2021 0.63 0.58 - 0.96 mg/dL Final 11/24/2021 0.52 (L) 0.58 - 0.96 mg/dL Final Estimated Glomerular Filtration Rate Date Value Ref Range Status 11/28/2021 122 >=60 mL/min/1.73m Final Comment: Estimated Glomerular Filtration Rate (eGFR) is calculated using the 2020 CKD-EPI creatinine equation. This equation utilizes serum creatinine, sex, and age as parameters. The creatinine assay has traceable calibration to isotope dilution-mass spectrometry. Refer to KDIGO guidelines for clinical interpretation. In patients with unstable renal function, e.g. those with acute kidney injury, the eGFR may not accurately reflect actual GFR. eGFR- Date Value Ref Range Status 09/15/2021 >60 Final P.O.C.T. RESULTS: N/A January 16, [address] PERFORMED: No IV SITE: NM only - not applicable, oral or physician administered agents given to patient POST EXAM PIV STATUS: Not applicable PROCEDURE TYPE: NM GET: 1.1 mCi Tc99m SULFUR COLLOID was administered orally via 4 ounces of Egg Beaters,1/2 pieces of toast, with 8 ounces of water orally ADMINISTRATION TIME: 0720 PATIENT DISCHARGED TO: Ambulatory patient, left [place] department area. A Diagnostic radioactive procedure has taken place, with no further precautions necessary other than routine body substance precautions. More information regarding radiation safety can be found using this link: [email or web address] SIGNATURE: RT Xochitl(Yan) PATIENT NAME: Armin Vivas DATE: January 16, 2022 TIME: 7:36 AM PAGER/CONTACT #: documented in this encounter [facility] 01-10-2022 Miscellaneous Notes Patient notified and verbalized understanding. Sridevi Lozano MA January 10, 2022 1:24 PM Tell pt that her colon bx's are normal She should get GES done as scheduled next week Thanks documented in this encounter [facility] 01-08-[address] Linder saw the patient. He is ok with her to be discharged. She was told to go to the er if the pain gets worse. Patient is relaxed and texting. She is drinking water. States the pain is improving. The patient said she passed a little more gas and she feels a little better. She took her pain pill and is on her cell phone. Dr. iLnder saw the patient. He ok'd pain medications. He assessed her abdomen which was soft and non distended. He will return to reassess her The patient returned from ambulating to the restroom. She said she passed a small amount of air. She said her pain is still a 9/10. {When I am talking to the patient she is not complaining of pain. She does have her arms crossed across her abdomen. Nursing Progress Note Patient Name: Armin Vivas Patient Location: Room/bed info not found ____ Daily Note: Patients abdomen is soft and non distended. She is passing gas. She is tearful and stated she usually ends up at the er after these procedures due to pain. She also said she gets pain medication after the procedures as well. She said she thinks her pain is due to vomiting all evening last night. I will have the doctor see her when he comes out of his next procedure. This note was completed by: Subha Eubanks Dr. Linder saw the patient at the bedside. She said she is having abdominal pain and she was encouraged to keep her knees to the chest to pass the air out. She did pass a small amount at this point. Her was updated. documented in this encounter [facility] 01-08-2022 Miscellaneous Notes OPERATIVE/PROCEDURE REPORT LOG ID: [id number] Surgery/Procedure Date: 01/08/2022 Incision/Procedure Start Time: 8:15 AM Incision Close/Procedure End Time: 8:29 AM Surgeon(s)/Proceduralist(s) and Quality Control Manager(s): Kelechi Linder MD - Proceduralist No Additional Staff Procedure(s): Colonoscopy with biopsies Anesthesia: MAC Brief History: 36 yo female with c/o diarrhea and abdominal pain. Her last colonoscopy was in 09/2016. The benefits, alternatives, and risks of the procedure(s) including (but not exclusive to ) bleeding, perforation, allergic reaction(s) due to sedatives, need for hospitalization, need for transfusions, need for surgery, and likelihood of missing a polyp or neoplastic lesion, were explained to the patient/guardian/responsible accompanying adult who is agreeable. Procedure Details: The patient was placed in the left lateral decubitus position. A digital rectal exam was performed and this was normal. The Olympus pediatric colonoscope was introduced into the rectum and advanced to the cecum. The procedure was not technically difficult. The cecum was identified by the appendiceal orifice and the ileocecal valve. The bowel preparation was good. The terminal ileum was intubated for its distal 5-10 cm and appeared normal. The scope was then slowly withdrawn and the mucosal folds examined in detail. There were no abnormalities in the cecum, ascending colon, transverse colon, descending colon, sigmoid or rectum. Random colon biopsies were taken to r/o microscopic colitis. Retroflexion was performed and this showed grade I internal hemorrhoids. The scope was then withdrawn and the patient tolerated the procedure well. Pre-Op/Pre-Procedure Diagnosis: Abdominal pain Diarrhea Post-Op/Post-Procedure Diagnosis: Internal hemorrhoids Random colon biopsies obtained Specimens: See above EBL: None Complications: None Recommendations: F/u on pathology F/u with me in 2-3 mos I/primary surgeon/proceduralist performed the entire procedure. Kelechi Linder MD SIGNATURE: Kelechi Linder MD PATIENT NAME: Armin Vivas DATE: January 08, 2022 TIME: 8:32 AM PAGER/CONTACT #: [phone] documented in this encounter [facility] 01-08-2022 History and physical note UPDATED HISTORY AND PHYSICAL EXAMINATION SERVICE DATE: 01/08/2022 SERVICE TIME: 8:00 AM PHYSICAL EXAM MUST BE COMPLETED ON ADMISSION The History and Physical (completed in the past 30 days) has been reviewed and the patient has been examined. The contents accurately reflect the patient's condition with the following additions or revisions since the H&P was completed. Examination indicates no changes. This H&P can be found in the Electronic Medical Record dated today. SIGNATURE: Kelechi Linder MD PATIENT NAME: Armin Vivas DATE: January 08, 2022 TIME: 8:00 AM HISTORY AND PHYSICAL EXAMINATION SERVICE DATE: 01/08/2022 SERVICE TIME: 7:46 AM PRIMARY CARE PHYSICIAN: Milana Lr MD REASON FOR VISIT: Armin Vivas is a 36 year old female who is scheduled for Colonoscopy at the request of Dr. Linder for routine H&P. The patient has the following: ACTIVE PROBLEM LIST Acute Colitis Palpitations Anxiety and Depression Seasonal Allergies Abdominal Pain Diarrhea Nausea & Vomiting Anxiety Rock (Generalized Anxiety Disorder) Dysphagia Gerd (Gastroesophageal Reflux Disease) Intractable Vomiting With Nausea Vomiting Crohn's Disease (Hcc) Nicotine use disorder, F17.2 Subjective CHIEF COMPLAINT: Abdominal pain, diarrhea, nausea and vomiting HPI: Patient is a 36 year old female who presents to [facility] for the above procedure. Patient complains of abdominal pain, nausea, vomiting and diarrhea for many months. Today, she complains of abdominal pain; she rates the abdominal pain as a 8 out of 10 on the numeric pain scale. She describes the pain, sharp and aching pain. She denies constipation or hemtochezia at this time. She reports her last colonoscopy was 5 years ago. She denies polyps or family history of colon cancer. Patient has history of GERD. Patient agrees to proceed with procedure. PAST MEDICAL HISTORY Diagnosis Date Abdominal pain Anxiety C. difficile diarrhea Colitis Dx not confirmed 2012, 1 episode Crohn's colitis (HCC) Depression Diarrhea Dysphagia GERD (gastroesophageal reflux disease) Nausea & vomiting Ulcerative colitis (HCC) PAST SURGICAL HISTORY Procedure Laterality Date COLONOSCOPY EGD FAMILY HISTORY Problem Relation Age of Onset Coronary Artery Disease Mother Hx [place] age 45 Diabetes Maternal Grandmother SOCIAL HISTORY: Social History Tobacco Use Smoking status: Current Every Day Smoker Packs/day: 0.50 Smokeless tobacco: Never Used Vaping Use Vaping Use: Never used Substance Use Topics Alcohol use: No Drug use: No Prior to Admission medications as of 12/26/21 [id number] Medication Sig Last Dose Taking dicyclomine (BENTYL) 20 mg tablet Take 1 tablet by mouth three times daily. ondansetron (ZOFRAN) 4 mg tablet Take 1 tablet by mouth every 8 hours as needed. hyoscyamine SR (LEVBID) 0.375 mg 12 hr tablet TAKE 1 TABLET BY MOUTH TWICE DAILY pantoprazole DR (PROTONIX) 40 mg tablet Take 1 tablet by mouth twice daily. predniSONE (DELTASONE) 10 mg tablet Please take 4 tabs daily for 3 days, then 3 tabs daily for 3 days, then 2 tabs daily for 3 days, then 1 tab daily for 3 days, then 0.5 tabs daily for 4 days (take with food). Patient not taking: Reported on 12/26/2021 prazosin (MINIPRESS) 1 mg cap Take 1 mg by mouth three times daily. Patient not taking: Reported on 12/26/2021 traZODone (DESYREL) 50 mg tablet Take 50 mg by mouth daily at bedtime. ALPRAZolam (XANAX) 1 mg tablet Take 1 mg by mouth four times daily as needed. promethazine (PHENERGAN) 12.5 mg tablet Take 1 tablet by mouth every 6 hours as needed. promethazine (PHENERGAN) 25 mg tablet Take 1 tablet by mouth every 4 hours as needed for nausea/vomiting. Patient not taking: Reported on 12/26/2021 citalopram hydrobromide (CELEXA ORAL) Take 30 mg by mouth. acetaminophen (TYLENOL) 325 mg tablet Take 650 mg by mouth. fluticasone (FLONASE) 50 mcg/actuation nasal spray Use 1 [place] in the nose. Loperamide HCl (IMODIUM) 2 mg tab Take 1 tablet by mouth four times daily as needed. L.ACIDOPH/B.LONG/L.PLANT/B.LAC (PROBIOTIC ACIDOPHILUS BEADS ORAL) Take by mouth. Cetirizine (ZYRTEC) 10 mg cap Take 10 mg by mouth once daily. No medication comments found. ALLERGIES Allergen Reactions Morphine Other: See Comments Heart feels funny , has safely taken percocet, dilaudid Other Cadillac-3s Swelling NECTARINES Reglan [Metoclopram* Other: See Comments Blurry vision REVIEW OF SYSTEMS: PAIN ASSESSMENT: Pain Pain Level: 8 Pain Location: Abdomen Pain Assessment (RN/FAMILY COUNSELOR): Assessment Tool: Verbal (Numeric Rating or Visual Analog Scale) General: Denies fever, chills, and unexpected weight change. Neuro: Denies dizziness and headaches. Denies seizures or stroke Respiratory: +Tabacco use. Denies SOB or productive cough. Denies COPD/ asthma Cardiovascular: +Palpitations. Denies CP. Denies CAD, CHF, HTN, HLD GI: see HPI : Denies dysuria. Denies CKD Endocrine: No history of diabetes or thyroid conditions. Hematology: Denies history of bleeding or clotting disorder. No known autoimmune disorders Musculoskeletal: Denies joint pain and swelling. Skin: Denies open sores and rashes. Objective PHYSICAL EXAM: VITALS: BP 117/56 Pulse 67 Temp (Src) 96.8 (Temporal Artery) Resp 18 Ht 5' 4 (1.63m) Wt 150 lb (68.0kg) SpO2 99% LMP 10/13/2021 BMI 25.73 kg/(m^2). O2 Therapy: Room Air General: NAD. Cooperative. Skin: Skin is warm, no rashes, and no open sores. HEENT: Normocephalic. Cardiovascular: Normal S1 & S2. RRR, No murmur. Lungs: CTA Bilaterally. No respiratory distress. Abdomen: Soft, nontender, non-distended. Bowel sounds normal in all four quadrants. Extremities: No edema. Neurological: Alert and oriented to person, place, and time. Pulses: radial pulses +2 Diagnostic tests reviewed for today's visit: Lab Value Units Date High Low HB 12.5 g/dL 11/28/2021 15.5 11.5 HCT 37.7 % 11/28/2021 46.0 36.0 WBC 14.64 k/uL 11/28/2021 11.00 3.70 PLT 323 k/uL 11/28/2021 400 150 NA 137 mmol/L 11/28/2021 144 136 K 3.7 mmol/L 11/28/2021 5.1 3.7 GLUC 177 mg/dL 11/28/2021 99 74 BUN 13 mg/dL 11/28/2021 21 7 CREAT 0.58 mg/dL 11/28/2021 0.96 0.58 PTSEC No results within date range. INR No results within date range. APTT No results within date range. ALT 7 U/L 11/24/2021 38 7 AST 13 U/L 11/24/2021 35 13 TBILI 0.2 mg/dL 11/24/2021 1.3 0.2 TSH No results within date range. Lab Value Units Date High Low HCGQT No results within date range. UHCG No results within date range. HCG, BODY* No results within date range. Lab Value Units Date High Low ABORHD No results within date range. ABSCREEN No results within date range. Assessment/Plan Patient has the following medical conditions which may affect jong-operative course Palpitations - Followed by PCP ANESTHESIA FINDINGS: Intubation History: No prior intubation Significant Anesthesia Considerations: None FAMILY PROBLEMS WITH ANESTHESIA: no history of adverse anesthetic event METS: Climb a flight of stairs or walk up a hill (5.50 METs) Patient denies any chest pain or undue shortness of breath with the above physical activity. PLAN Procedure Diagnosis: Abdominal pain, unspecified abdominal location [R10.9] Diarrhea, unspecified type [R19.7] Planned Procedure: Colonoscopy Planned Anesthetic: MAC SIGNATURE: Ethel Nieto APRN.CNP PATIENT NAME: Armin Vivas DATE: January 08, 2022 TIME: 7:46 AM PAGER/CONTACT #: documented in this encounter [facility] 12-26-2021 Miscellaneous Notes Colonoscopy order placed and submitted to scheduling. Procedure details and prep instructions handed to patient at check-out. Verbally did a quick over view of what the patient should expect for the prep: -instructed patient to review prep instructions about 10 days before scheduled procedure -there are certain medications/supplements to avoid/hold up to 5 days prior to the procedure -prep is OTC, NOT a prescription, and can be picked up by patient at any drugstore, grocery store, etc. La Martin December 26, 2021 3:32 PM documented in this encounter [facility] 12-25-2021 History of Presen t illness Narrative HPI: Armin Vivas is a 36 year old female who presents for f/u - last seen 07/2021. She has gained 6#. She was in [facility] in October for upper abd pain. She had not had BM for about 5 days total - including before and after her admission. Since getting out of hospital she has had loose BM's up to 7x a day. She has rectal pain and abd pain but no blood in stool but there is blood on paper. She has both Bentyl and Levbid for the pain - she thinks the Bentyl helps more. I had her take Reglan after Current Outpatient Medications Medication Sig hyoscyamine SR (LEVBID) 0.375 mg 12 hr tablet TAKE 1 TABLET BY MOUTH TWICE DAILY pantoprazole DR (PROTONIX) 40 mg tablet Take 1 tablet by mouth twice daily. dicyclomine (BENTYL) 10 mg capsule Take 1 capsule by mouth three times daily as needed (abdominal pain and bloating). traZODone (DESYREL) 50 mg tablet Take 50 mg by mouth daily at bedtime. ALPRAZolam (XANAX) 1 mg tablet Take 1 mg by mouth four times daily as needed. promethazine (PHENERGAN) 12.5 mg tablet Take 1 tablet by mouth every 6 hours as needed. ondansetron HCl (ZOFRAN ORAL) Take by mouth. citalopram hydrobromide (CELEXA ORAL) Take 30 mg by mouth. acetaminophen (TYLENOL) 325 mg tablet Take 650 mg by mouth. fluticasone (FLONASE) 50 mcg/actuation nasal spray Use 1 [place] in the nose. Loperamide HCl (IMODIUM) 2 mg tab Take 1 tablet by mouth four times daily as needed. L.ACIDOPH/B.LONG/L.PLANT/B.LAC (PROBIOTIC ACIDOPHILUS BEADS ORAL) Take by mouth. Cetirizine (ZYRTEC) 10 mg cap Take 10 mg by mouth once daily. erythromycin DR (CELESTINO-TAB) 250 mg EC tablet Take 1 tablet by mouth three times daily with meals. (Patient not taking: Reported on 12/26/2021 ) polyethylene glycol 3350 (MIRALAX, GLYCOLAX) 17 gram packet Take 1 Packet by mouth once daily. Dissolve dose in 4 - 8 ounces of liquid and take as directed. (Patient not taking: Reported on 12/26/2021 ) predniSONE (DELTASONE) 10 mg tablet Please take 4 tabs daily for 3 days, then 3 tabs daily for 3 days, then 2 tabs daily for 3 days, then 1 tab daily for 3 days, then 0.5 tabs daily for 4 days (take with food). (Patient not taking: Reported on 12/26/2021 ) prazosin (MINIPRESS) 1 mg cap Take 1 mg by mouth three times daily. (Patient not taking: Reported on 12/26/2021 ) promethazine (PHENERGAN) 25 mg tablet Take 1 tablet by mouth every 4 hours as needed for nausea/vomiting. (Patient not taking: Reported on 12/26/2021 ) No current facility-administered medications for this visit. PAST MEDICAL HISTORY Diagnosis Date Abdominal pain Anxiety C. difficile diarrhea Colitis Dx not confirmed 2012, 1 episode Crohn's colitis (HCC) Depression Diarrhea Dysphagia GERD (gastroesophageal reflux disease) Nausea & vomiting Ulcerative colitis (HCC) PAST SURGICAL HISTORY Procedure Laterality Date COLONOSCOPY EGD FAMILY HISTORY Problem Relation Age of Onset Coronary Artery Disease Mother Hx [place] age 45 Diabetes Maternal Grandmother Social History Tobacco Use Smoking status: Current Every Day Smoker Packs/day: 0.50 Smokeless tobacco: Never Used Vaping Use Vaping Use: Never used Substance Use Topics Alcohol use: No Drug use: No ALLERGIES Allergen Reactions Morphine Other: See Comments Heart feels funny , has safely taken percocet, dilaudid Other Cadillac-3s Swelling NECTARINES Reglan [Metoclopram* Other: See Comments Blurry vision REVIEW OF SYSTEMS GENERAL: No weight loss, malaise or fevers. HEENT: Negative for frequent or significant headaches, No changes in hearing or vision, no nose bleeds or other nasal problems. NECK: Negative for lumps, goiter, pain and significant neck swelling. RESPIRATORY: Negative for cough, hemoptysis, wheezing or shortness of breath CARDIOVASCULAR: Negative for chest pain, leg swelling or palpitations GI: as per HPI : No history of dysuria, frequency or incontinence MUSCULOSKELETAL: Negative for joint pain or swelling, back pain or muscle pain. SKIN: Negative for lesions, rash, and itching PSYCH: Negative for sleep disturbance, mood disorder and recent psychosocial stressors NEURO: No history of headaches, syncope, paralysis, seizures or tremors PHYSICAL EXAMINATION: BP 124/66 Pulse 94 Ht 5' 4 (1.63m) Wt 152 lb 3.2 oz (69.0kg) SpO2 99% LMP 10/13/2021 BMI 26.11 kg/(m^2). GENERAL APPEARANCE: Well appearing, alert, in no acute distress, well-hydrated, well nourished.. SKIN: Skin color, texture, turgor normal, no suspicious rashes or lesions. EYES: Anicteric sclera. Pupils are equally round and reactive to light. Extraocular movements are intact. . NECK: Supple, no adenopathy; thyroid symmetric, normal size, no bruits. LUNGS: Lungs clear to auscultation. No wheezing, rhonchi, rales. HEART: RRR without murmur, gallop, or rubs. No ectopy. ABDOMEN: Abdomen soft, mild lower tenderness, non distended. Bowel sounds normal. No masses, ascites or hepatosplenomegaly. EXTREMITIES: No deformities, edema, skin discoloration, clubbing or cyanosis. NEUROLOGIC: Gait normal. Sensation and strength grossly intact.. ASSESSMENT AND PLAN: 1. Abdominal pain, unspecified location - ICD9: 789.00, ICD10: R10.9 Chronic - getting relief on Bentyl [address] abd/pelvis 10/2021 IMPRESSION: Colonic wall thickening extending from mid transverse colon through sigmoid colon. Findings could be related to colitis. Suspect due to mainly IBS but she also appears to have Crohn's disease CBC, LFT's and lipase normal in ED last week RUQ us 08/17/2020: GB sludge vs. Stones, + Márquez's sign 2. Diarrhea, unspecified type - ICD9: 787.91, ICD10: R19.7 Chronic - now having loose Bm's up to 7x a day Stool studies negative 10/2021 - including leukocytes and calprotectin 3. Colitis - ICD9: 558.9, ICD10: K52.9 (primary diagnosis Seen on prior CT s in 2015 and 2016 and 2021 as above No change on Apriso or Lialda [facility] IBD panel c/w Crohn's - 12/2016 Colonoscopy 09/06/2016 - normal - random bx's normal 4. Nausea and vomiting, intractability of vomiting not specified, unspecified vomiting type - ICD9: 787.01, ICD10: R11.2 Acute on chronic Started Reglan after below EGD but got blurry vision and CARVAJAL so this was stopped She was on E-mycin with some relief in hospital but this did not help her at home Now taking Phenergan but b/c this makes her tired she uses Zofran during the day EGD 09/2021 Normal duodenum - biopsies normal Mild antral gastritis - biopsies normal Undigested food in stomach - suggestive of gastroparesis SBS 10/2017 - normal GES 04/2017 - normal 5. Gastroesophageal reflux disease without esophagitis - ICD9: 530.81, ICD10: K21.9 Having this daily despite taking pantoprazole Cont Phenergan and Zofran prn Cont pantoprazole 40 mg po QAM Cont Bentyl 20 mg TID Schedule GES Colonoscopy:. * The benefits, alternatives, and risks of the procedure(s) including (but not exclusive to ) bleeding, perforation, allergic reaction(s) due to sedatives, need for hospitalization, need for transfusions, need for surgery, and likelihood of missing a polyp or neoplastic lesion, were explained to the patient/guardian/responsible accompanying adult who is agreeable. Kelechi Linder MD documented in this encounter [facility] 12-25-2021 Miscellaneous Notes The following approved medication requests have been transmitted electronically. Signed Prescriptions Disp Refills hyoscyamine SR (LEVBID) 0.375 mg 12 hr tablet 60 tablet 3 Sig: TAKE 1 TABLET BY MOUTH TWICE DAILY BRIANDA: No Authorizing Provider: KELECHI LINDER MD Pharmacy faxed requesting the following refill Refill(s) Requested: Pending Prescriptions Disp Refills HYOSCYAMINE ER 0.375 MG TABLET,EXTENDED RELEASE,12 HR 60 tablet 3 Sig: TAKE 1 TABLET BY MOUTH TWICE DAILY BRIANDA: Yes ALLERGIES Allergen Reactions Morphine Other: See Comments Heart feels funny , has safely taken percocet, dilaudid Other Cadillac-3s Swelling NECTARINES Reglan [Metoclopram* Other: See Comments Blurry vision (home) [phone] (cell) Last Office Visit Date: 07/03/2021 Last Distance Health Visit: Visit date not found Future Appointment: 12/26/2021 The patients preferred pharmacy has been captured for this encounter? yes Request is for script(s) to be escript to pharmacy. Sridevi Lozano MA documented in this encounter [facility] this [facility] Phone[facility]* Diagnosis Abdominal pain, unspecified abdominal location- Primary Diarrhea, unspecified type Colitis Other and unspecified noninfectious gastroenteritis and colitis Gastroesophageal reflux disease without esophagitis Esophageal reflux Nausea and vomiting, unspecified vomiting type Nausea Nausea alone documented in this encounter [facility] note* Diagnosis Abdominal pain, unspecified abdominal location- Primary Diarrhea, unspecified type documented in this encounter [facility] note* Diagnosis Abdominal pain, unspecified abdominal location Diarrhea, unspecified type Preop testing Preoperative examination, unspecified Palpitations documented in this encounter [facility] note* Diagnosis Nausea Nausea alone documented in this encounter [facility] note* Diagnosis Diarrhea, unspecified type- Primary Irritable bowel syndrome with diarrhea Irritable bowel syndrome Nausea and vomiting, unspecified vomiting type documented in this encounter [facility] note* Diagnosis Diarrhea, unspecified type Nausea and vomiting, unspecified vomiting type documented in this encounter [facility] note* Diagnosis Diarrhea, unspecified type- Primary Irritable bowel syndrome with diarrhea Irritable bowel syndrome Nausea Nausea alone documented in this encounter [facility] note* Diagnosis Irritable bowel syndrome with diarrhea Irritable bowel syndrome documented in this encounter [facility] for referral (narrative)* Diagnostic Procedure Only (Routine) - Authorized Specialty Diagnoses / Procedures Referred By Demar rubio Referred To Contact MOLECULAR & FUNCTIONAL IMAGING Diagnoses Nausea Procedures NM GASTRIC EMPTYING SOLID GASTRIC EMPTYING STUDY Kelechi Linder MD [address] [place] [address] Molecular & Functional Imaging [address] [place] [address] Referral ID Status Reason Start Date Expiration Date Visits Requested Visits Authorized [id number] Authorized Auto-Generat ed Referral 12/26/2021 01/25/2023 1 1 [facility] for referral (narrative)* Outpatient Procedure (Routine) - Pending Review Specialty Diagnoses / Procedures Referred By Demar rubio Referred To Contact [facility] Diagnoses Abdominal pain, unspecified abdominal location Diarrhea, unspecified type Procedures COLONOSCOPY DIAGNOSTIC COLONOSCOPY FLX DX W/COLLJ SPEC WHEN Kelechi Malik MD [address] [place] [phone] [address] Referral ID Status Reason Start Date Expiration Date Visits Requested Visits Authorized [id number] Pending Review Auto-Generat ed Referral 12/26/2021 12/26/2022 1 1 [facility] for referral (narrative)* Outpatient Procedure (Routine) - Closed Specialty Diagnoses / Procedures Referred By Demar rubio Referred To Contact [facility] Diagnoses Abdominal pain, unspecified abdominal location Diarrhea, unspecified type Procedures COLONOSCOPY DIAGNOSTIC COLONOSCOPY FLX DX W/COLLJ SPEC WHEN Kelechi Malik MD [address] [place] [id number] [address] Referral ID Status Reason Start Date Expiration Date V isits Requested Visits Authorized [id number] Closed Auto-Generate d Referral 01/08/2022 12/26/2022 1 1 [facility] for referral (narrative)* Diagnostic Procedure Only (Routine) - Closed Specialty Diagnoses / Procedures Referred By Demar rubio Referred To Contact MOLECULAR & FUNCTIONAL IMAGING Diagnoses Nausea Procedures NM GASTRIC EMPTYING SOLID GASTRIC EMPTYING STUDY Kelechi Linder MD [address] [place] [id number] Molecular & Functional Imaging [address] [place], [place] [id number] Referral ID Status Reason Start Date Expiration Date V isits Requested Visits Authorized [id number] Closed Auto-Generate d Referral 12/26/2021 01/25/2023 1 1 [facility] for referral (narrative)* Outpatient Procedure (Routine) - Pending Review Specialty Diagnoses / Procedures Referred By Contac t Referred To Contact [facility] Diagnoses Diarrhea, unspecified type Nausea and vomiting, unspecified vomiting type Procedures BREATH TEST GLUCOSE BREATH HYDROGEN/METHANE TEST Kristofer Zuluaga MD [address] [address] [facility] Disease [place] [phone] Referral ID Status Reason Start Date Expiration Date Visits Requested Visits Authorized [id number] Pending Review Auto-Generat ed Referral 12/20/2022 12/21/2023 1 1 T [facility] for visit Narrative* Outpatient Procedure (Routine) - Closed Specialty Diagnoses / Procedures Referred By Contac t Referred To Contact [facility] Diagnoses Abdominal pain, unspecified abdominal location Diarrhea, unspecified type Procedures COLONOSCOPY DIAGNOSTIC COLONOSCOPY FLX DX W/COLLJ SPEC WHEN PFRMD Kelechi Linder MD [facility] [place] [address] [place] [id number] Referral ID Status Reason Start Date Expiration Date V isits Requested Visits Authorized [id number] Closed Auto-Generate d Referral 01/08/2022 12/26/2022 1 1 [facility] for visit Narrative* Diagnostic Procedure Only (Routine) - Closed Specialty Diagnoses / Procedures Referred By Contac t Referred To Contact MOLECULAR & FUNCTIONAL IMAGING Diagnoses Nausea Procedures NM GASTRIC EMPTYING SOLID GASTRIC EMPTYING STUDY Kelechi Linder MD [phone] [address] Molecular & Functional Imaging [address] [place] [address] Referral ID Status Reason Start Date Expiration Date V isits Requested Visits Authorized [id number] Closed Auto-Generate d Referral 12/26/2021 01/25/2023 1 1 [facility] Reason for Referral Status Reason Specialty Diagnoses / Procedures Referre d By Contact Referred To Contact Open Radiology Diagnoses Right upper quadrant abdominal pain Procedures VL MESENTERIC ARTERY DUPLEX SCAN Milana Lr MD [address] [facility], [place] [address] Assessments Diagnosis Right upper quadrant abdominal pain Abdominal pain, right upper quadrant Advance Directives No Advanced Directives Records FoundDocuments on File Type Date Recorded 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 Advance Directives and Living Will Power of Wool Merchant Documents on File Type Date Recorded 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 ACP-Advance Directive ACP-Power of Wool Merchant Documents on File Type Date Recorded 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 Advance Directive(s) 11/24/2021 1:37 PM Advance Directive(s) 11/23/2021 10:50 PM Advance Directive(s) 11/01/2021 7:19 PM Advance Directive(s) 09/15/2021 1:31 PM Advance Directive(s) 09/06/2021 8:29 AM Advance Directive(s) 08/29/2021 6:40 PM Advance Directive(s) 12/07/2018 10:39 AM Advance Directive(s) 12/10/2017 1:32 PM Advance Directive(s) 06/27/2017 10:00 AM Documents on File Type Date Recorded 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 Advance Directive(s) 11/24/2021 1:37 PM Advance Directive(s) 11/23/2021 10:50 PM Advance Directive(s) 11/01/2021 7:19 PM Advance Directive(s) 09/15/2021 1:31 PM Advance Directive(s) 09/06/2021 8:29 AM Advance Directive(s) 08/29/2021 6:40 PM Advance Directive(s) 12/07/2018 10:39 AM Advance Directive(s) 12/10/2017 1:32 PM Advance Directive(s) 06/27/2017 10:00 AM Documents on File Type Date Recorded 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 Advance Directive(s) 01/08/2022 7:45 AM Advance Directive(s) 11/24/2021 1:37 PM Advance Directive(s) 11/23/2021 10:50 PM Advance Directive(s) 11/01/2021 7:19 PM Advance Directive(s) 09/15/2021 1:31 PM Advance Directive(s) 09/06/2021 8:29 AM Advance Directive(s) 08/29/2021 6:40 PM Advance Directive(s) 12/07/2018 10:39 AM Advance Directive(s) 12/10/2017 1:32 PM Advance Directive(s) 06/27/2017 10:00 AM Documents on File Type Date Recorded 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 Advance Directive(s) 01/08/2022 7:45 AM Advance Directive(s) 11/24/2021 1:37 PM Advance Directive(s) 11/23/2021 10:50 PM Advance Directive(s) 11/01/2021 7:19 PM Advance Directive(s) 09/15/2021 1:31 PM Advance Directive(s) 09/06/2021 8:29 AM Advance Directive(s) 08/29/2021 6:40 PM Advance Directive(s) 12/07/2018 10:39 AM Advance Directive(s) 12/10/2017 1:32 PM Advance Directive(s) 06/27/2017 10:00 AM Documents on File Type Date Recorded 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 Advance Directive(s) 01/22/2022 5:50 PM Advance Directive(s) 01/08/2022 7:45 AM Advance Directive(s) 11/24/2021 1:37 PM Advance Directive(s) 11/23/2021 10:50 PM Advance Directive(s) 11/01/2021 7:19 PM Advance Directive(s) 09/15/2021 1:31 PM Advance Directive(s) 09/06/2021 8:29 AM Advance Directive(s) 08/29/2021 6:40 PM Advance Directive(s) 12/07/2018 10:39 AM Advance Directive(s) 12/10/2017 1:32 PM Advance Directive(s) 06/27/2017 10:00 AM Summary Purpose Family History No Family History Records FoundNo Family History Records FoundNo Family History Records FoundNo Family History Records FoundNo Family History Records FoundNo Family History Records Found Medications Administered Section Inactive Administered Medications - up to 3 most recent administrations Medication Order MAR Action Action Date Dose Rate Site lactated ringers iv infusion 125 mL/hr, INTRAVENOUS, CONTINUOUS, Starting on Sat01/08/22 at 0900, Until Sat01/09/22 at 0407, Recovery or Phase I (only) Rate/Dose Change 01/08/2022 8:33 AM EDT 125 mL/hr 125 mL/hr ondansetron (PF) 4 mg injection (ZOFRAN) 4 mg, INTRAVENOUS, NEEDED, 1 dose, Starting on Sat01/08/22 at 0841, Until Sat01/08/22 at 0845, Nausea/Vomiting - First Line - Parenteral, Give IV push over 2 minutes, Recovery or Phase I (only) Given 01/08/2022 8:45 AM EDT 4 mg oxyCODONE IR 5 mg tab(s) (ROXICODONE) 5 mg, ORAL, X (PACU ONLY) ONCE, 1 dose, On Sat01/08/22 at 1000, Recovery or Phase I (only) Given 01/08/2022 10:00 AM EDT 5 mg Additional Source Comments INFORMATION SOURCE (unrecogn ized section and content) DATE CREATED AUTHOR AUTHOR'S ORGANIZ ATION 05/03/2021 [facility] DATE CREATED AUTHOR AUTHOR'S ORGANIZ ATION 07/08/2021 [facility] DATE CREATED AUTHOR AUTHOR'S ORGANIZ ATION 09/08/2023 [facility] DATE CREATED AUTHOR AUTHOR'S ORGANIZ ATION 09/10/2023 [facility] DATE CREATED AUTHOR AUTHOR'S ORGANIZ ATION 09/18/2023 [facility] Source Comments (unrecognize d section and content) In the event this informatio n is protected by the Federal Confidentiality of Alcohol and Drug Abuse Patient Records regulations: The Federal rules restrict any use of the information to criminally investigate or prosecute any alcohol or drug abuse patient.[facility] the event this information is protected by the Federal Confidentiality of Alcohol and Drug Abuse Patient Records regulations: The Federal rules restrict any use of the information to criminally investigate or prosecute any alcohol or drug abuse patient.[facility] the event this information is protected by the Federal Confidentiality of Alcohol and Drug Abuse Patient Records regulations: The Federal rules restrict any use of the information to criminally investigate or prosecute any alcohol or drug abuse patient.[facility] the event this information is protected by the Federal Confidentiality of Alcohol and Drug Abuse Patient Records regulations: The Federal rules restrict any use of the information to criminally investigate or prosecute any alcohol or drug abuse patient.[facility] the event this information is protected by the Federal Confidentiality of Alcohol and Drug Abuse Patient Records regulations: The Federal rules restrict any use of the information to criminally investigate or prosecute any alcohol or drug abuse patient.[facility] the event this information is protected by the Federal Confidentiality of Alcohol and Drug Abuse Patient Records regulations: The Federal rules restrict any use of the information to criminally investigate or prosecute any alcohol or drug abuse patient.[facility] the event this information is protected by the Federal Confidentiality of Alcohol and Drug Abuse Patient Records regulations: The Federal rules restrict any use of the information to criminally investigate or prosecute any alcohol or drug abuse patient.[facility]In the event this information is protected by the Federal Confidentiality of Alcohol and Drug Abuse Patient Records regulations: The Federal rules restrict any use of the information to criminally investigate or prosecute any alcohol or drug abuse patient.[facility]In the event this information is protected by the Federal Confidentiality of Alcohol and Drug Abuse Patient Records regulations: The Federal rules restrict any use of the information to criminally investigate or prosecute any alcohol or drug abuse patient.[facility] Hospital[facility] the event this information is protected by the Federal Confidentiality of Alcohol and Drug Abuse Patient Records regulations: The Federal rules restrict any use of the information to criminally investigate or prosecute any alcohol or drug abuse patient.[facility] the event this information is protected by the Federal Confidentiality of Alcohol and Drug Abuse Patient Records regulations: The Federal rules restrict any use of the information to criminally investigate or prosecute any alcohol or drug abuse patient.[facility] the event this information is protected by the Federal Confidentiality of Alcohol and Drug Abuse Patient Records regulations: The Federal rules restrict any use of the information to criminally investigate or prosecute any alcohol or drug abuse patient.[facility]In the event this information is protected by the Federal Confidentiality of Alcohol and Drug Abuse Patient Records regulations: The Federal rules restrict any use of the information to criminally investigate or prosecute any alcohol or drug abuse patient.[facility] the event this information is protected by the Federal Confidentiality of Alcohol and Drug Abuse Patient Records regulations: The Federal rules restrict any use of the information to criminally investigate or prosecute any alcohol or drug abuse patient.[facility] the event this information is protected by the Federal Confidentiality of Alcohol and Drug Abuse Patient Records regulations: The Federal rules restrict any use of the information to criminally investigate or prosecute any alcohol or drug abuse patient.[facility] Reason for Visit (unrecogniz ed section and content) Reason Comments Refill Request Reason Comments Established Patient Follow-Up Reason Comments Orders colonoscopy schedule d Reason Onset Date Comments Follow Up Tests Results 01/10/2022 Reason Comments Follow Up Tests Results Reason Onset Date Comments Procedure 03/13/2023 Breath Test - Gl ucose Specialty Diagnoses / Procedures Referred By Contac t Referred To Contact [facility] Diagnoses Diarrhea, unspecified type Nausea and vomiting, unspecified vomiting type Procedures BREATH TEST GLUCOSE BREATH HYDROGEN/METHANE TEST Kristofer Zuluaga MD 1 [facility] [address] [place] [address] [facility] [address] [place] [address] Referral ID Status Reason Start Date Expiration Date V isits Requested Visits Authorized [id number] Closed Auto-Generate d Referral 12/20/2022 12/21/2023 1 1 Reason Comments F/U 3 Month Reason Comments Received Outside Medical Records Care Teams (unrecognized sec tion and content) Telesales Agent Relationship Specialty Start Date End Date Milana Lr [address] [place] [address] PCP - General Family Practice 06/22/15 Milana Lr [address] [place] [address] Family Practice 06/22/15 Telesales Agent Relationship Specialty Start Date End Date Milana Lr [address] [place] [address] PCP - General Family Practice 06/22/15 Milana Lr [address] [place] [address] Family Practice 06/22/15 Telesales Agent Relationship Specialty Start Date End Date Milana Lr [address] [place] [address] PCP - General Family Practice 06/22/15 [address] Lr [address] [place] [address] Family Practice 06/22/15 Telesales Agent Relationship Specialty Start Date End Date Milana Lr [address] [place] [address] PCP - General Family Practice 06/22/15 [address] L[address] [place] [address] Family Practice 06/22/15 Telesales Agent Relationship Specialty Start Date End Date Milana Lr [address] [place] [address] PCP - General Family Practice 06/22/15 [address] [place] [address] Family Practice 06/22/15 Telesales Agent Relationship Specialty Start Date End Date Milana Lr [address] [place] [address] PCP - General Family Practice 06/22/15 [address] [place] [address] Family Practice 06/22/15 Telesales Agent Relationship Specialty Start Date End Date Milana Lr [address] [place] [address] PCP - General Family Practice 06/22/15 [address] [place] [address] Family Practice 06/22/15 Telesales Agent Relationship Specialty Start Date End Date Milana Lr [address] [place] [address] PCP - General Family Medicine 06/22/15 [address] [place] [address] Family Medicine 06/22/15 Telesales Agent Relationship Specialty Start Date End Date Milana Lr [address] [place] [address] PCP - General Family Medicine 06/22/15 Mil[address] L[address] [place] [address] Family Medicine 06/22/15 Telesales Agent Relationship Specialty Start Date End Date Milana Lr [address] [place] [address] PCP - General Family Medicine 06/22/15 [address] [place] [address] Family Medicine 06/22/15 Telesales Agent Relationship Specialty Start Date End Date Milana Lr [address] [place] [address] PCP - General Family Medicine 06/22/15 Milana Lr [address] [place] [address] Family Medicine 06/22/15 Telesales Agent Relationship Specialty Start Date End Date Milana Lr [address] [place] [address] PCP - General Family Medicine 06/22/15 [address] [place] [address] Family Medicine 06/22/15 Telesales Agent Relationship Specialty Start Date End Date Milana Lr [address] [place] [address] PCP - General Family Medicine 06/22/15 Milana L[facility] [address] [place] [facility] [address] Family Medicine 06/22/15 FOR RECORDS PERTAINING TO PATIENTS WHO ARE OR HAVE BEEN ENROLLED IN A CHEMICAL DEPENDENCY/SUBSTANCEABUSE PROGRAM, SOME INFORMATION MAY BE OMITTED. This clinical summary was aggregated from multiple sources. Caution should be exercised in using it in the provision of clinical care. This summary normalizes information from multiple sources, and as a consequence, information in this document may materially change the coding, format and clinical context of patient data. In addition, data may be omitted in some cases. CLINICAL DECISIONS SHOULD BE BASED ON THE PRIMARY CLINICAL RECORDS. [employer] [facility]. provides no warranty or guarantee of the accuracy or completeness of information in this document.
[2023-11-10] MEDS: Pantoprazole Sodium 40 MG in 0.9% Normal Saline (100mL MB+) 100 ML 330 MG IV (18:49)
[2023-11-10 18:53] LABS: Absolute Lymphocyte Count 3.55 X10^3/uL (0.83-4.51); Absolute Neutrophil Count 7.4 X10^3/uL (2.0-7.7); Basophil# 0.12 X10^3/uL; Eosinophil# 0.24 X10^3/uL; Hematocrit 43.2 % (37-47); Hemoglobin 14.1 g/dL (12.0-15.0); Lymphocyte # 3.55 X10^3/ul (0.83-4.51); Mean Corp Hgb Conc 32.6 g/dL (32-36); Mean Corpuscular Hgb 28.5 pg (27.0-32.0); Mean Corpuscular Volume 87.3 fL (81-99); Mean Platelet Vol. 9.5 fl (6.2-12.0); Monocyte# 0.91 X10^3/uL; Monocyte% 7.4 % (0-10); NRBC Flagged by Analyzer 0 % (0-5); Neutrophil # 7.36 X10^3/uL (2.7-7.7); Neutrophil % 60.1 % (47-70); Platelet Count 444 K/mm3 (150-450); RBC Distribution Width CV 13.4 % (11.6-14.6); RBC Distribution Width SD 42.8 fl (35.1-43.9); Red Blood Count 4.95 M/mm3 (4.2-5.4); White Blood Count 12.2 K/mm3 (4.4-11.0)
[2023-11-10] MEDS: proMETHazine 25 MG/ML Syringe 12.5 MG IM (18:58)
[2023-11-10] MEDS: Dicyclomine 20 MG/2 ML Vial IM (19:00)
[2023-11-10 19:04] LABS: Internal QC Validated? YES +Cl - CLEAR BKGD; Pregnancy, Serum, hCG Quali. NEGATIVE Negative
[2023-11-10 19:07] LABS: AST(SGOT) 15 U/L (15-37); Alanine Aminotransfer ALT/SGPT 32 U/L (13-56); Albumin, Serum 3.9 g/dL (3.2-5.0); Alkaline Phosphatase 78 U/L (45-117); Anion Gap 9 (5-15); BUN 15 mg/dL (7-18); BUN/Creat Ratio 22.7 RATIO (10-20); Bilirubin, Direct 0.06 mg/dL (0.00-0.30); Calcium,Total 10.1 mg/dL (8.5-10.1); Chloride 104 mmol/L (98-107); Creatinine, Serum 0.66 mg/dL (0.55-1.02); EST Glomerular Filtration Rate 107 mL/min (>60); Est Glom Filt Rate - Afr Amer 130 mL/min (>60); Estimated Creatinine Clearance 119.88 ml/min; Globulin 3.5 g/dL (2.2-4.2); Glucose 96 mg/dL (74-106); Lipase 41 U/L (13-75); Potassium 3.7 mmol/L (3.5-5.1); Protein, Total 7.4 g/dL (6.4-8.2); Sodium Level 141 mmol/L (136-145)
--- NOTE | 2023-11-10 19:56 | CT_ITS ---
STUDY: CT ABDOMEN AND PELVIS WITH CONTRAST - URINARY TRACT REASON FOR EXAM: Female, 37 years old. abd pain RADIATION DOSAGE (If Supplied By Facility): CTDIvol = ( 12.87 ) mGy, DLP = ( 931.44 ) mGycm TECHNIQUE: IV 100mL Isovue-370 was administered. Transaxial images were obtained from the dome of the diaphragm to the symphysis pubis in the arterial, nephrographic and excretory phases. Multiplanar coronal and sagittal images were reformatted. Individualized Dose Optimization Techniques Were Used For This CT. COMPARISON: No relevant prior comparison study available FINDINGS: The visualized lung bases are unremarkable. The visualized portions of the heart are within normal limits. Normal liver. Normal gallbladder and extrahepatic biliary system. Normal spleen. Normal pancreas. Normal bilateral adrenal glands. There is marked thickening of the gastric wall at the inferior may represent gastric ulcer or gastritis. Normal small intestine. Normal colon. The appendix is visualized and appears normal. Normal abdominal aorta. No retroperitoneal adenopathy. Normal right kidney. Normal left kidney. Normal urinary bladder. Normal abdominal wall. Normal osseous structures. CT/Abdomen/Pelvis W IV Cont ONLY IMPRESSION: There is marked thickening of the gastric wall at the inferior may represent gastric ulcer or gastritis. Electronically Signed: aMrcus Beyer MD at 21:57 EDT ,
[2023-11-10 20:19] VITALS: BP 135/76; PULSE 80; RESP 14; TEMP 36.6; O2SAT 99
[2023-11-10] MEDS: 0.9% Normal Saline (1000mL) 1,000 ML 150 ML IV (20:20)
[2023-11-10] MEDS: HYDROmorphone 1 MG/ML Syringe IV (20:20)
[2023-11-10] MEDS: Mag Hydrox/Al Hydrox/Simeth 30 ML UDC PO (22:17)
[2023-11-10] MEDS: HYDROmorphone 0.5 MG/0.5 ML SYRINGE IV (22:17)
[2023-11-10] MEDS: oxyCODONE 5 MG Tablet PO (23:08)
[2023-11-10 23:09] VITALS: BP 138/72; PULSE 80; RESP 14; TEMP 36.6; O2SAT 99
== END 2023-11-10 23:10 | disposition home or self-care (01) ==
PROVIDERS: Emergency Provider Emergency Medicine; PCP Family Medicine; Visit Provider Emergency Medicine
DX: K29.70 Gastritis, unspecified, without bleeding (principal); F17.200 Nicotine dependence, unspecified, uncomplicated; R07.81 Pleurodynia
CPT/HCPCS: 74177; 80048; 80076; 83690; 84703; 85025; 93005; 96361; 96372; 96374; 96375; 96376; 99285; J7030; Q9967; A4216; J2405

== ENCOUNTER 2023-11-13 16:03 | Emergency (ER) | payer OTHER, SELFPAY ==
[2023-11-13 16:04] VITALS: BP 123/71; PULSE 91; RESP 16; TEMP 36.5; O2SAT 95; BMI 28.9
--- NOTE | 2023-11-13 16:17 | ED.VIS.GI ---
HPI HPI - GI History of Present Illness Chief Complaint: Abd Pain Nausea/Vomiting/Emesis GI Symptom: Positive for Nausea and Vomiting Narrative Narrative: 37-year-old female past medical history of Crohn disease, states that she used to see a supervisor looping in [place], but is trying to have her records transferred to Dr. Alva locally, presents with nausea and vomiting and right upper quadrant pain that she has had at least over the last 5 days. She was seen in the emergency department on Saturday, 4 days ago, and was diagnosed with gastritis versus gastric ulcers. She states it does not necessarily feel like one of her Crohn's flare as she is not having diarrhea, but she is having constipation instead. She was given medications for home use, but states they worked for a day then she started vomiting. She has vomited 6 times in the last 24 hours without hematemesis. She states that now the pain is in the bilateral upper quadrants of her abdomen. No exacerbating or alleviating factors. PFSH [facility] Medical History Anxiety Colitis Crohns disease Depression Stephanie Tobar infection Gestational diabetes Left ovarian cyst Sleep apnea Home Medications citalopram 20 mg tablet 30 mg PO DAILY 07/12/21 [History Last Taken Unknown] diphenoxylate-atropine 2.5 mg-0.025 mg tablet (Lomotil) 1 tab PO 4X/DAY PRN PRN diarrhea 5 days #20 tabs 11/22/22 [Rx Last Taken Unknown] promethazine 25 mg tablet 25 mg PO Q6H PRN PRN Nausea #10 TABLETS 02/04/23 [Rx Last Taken Unknown] ondansetron 4 mg disintegrating tablet 4 mg PO Q8H PRN nausea and vomiting 3 days #9 tabs 03/26/23 [Rx Last Taken Unknown] naproxen 500 mg tablet 500 mg PO Q8H #30 tabs 06/20/23 [Rx Last Taken Unknown] dicyclomine 20 mg tablet 20 mg PO 4X/DAY PRN PRN abdominal pain 11/10/23 [History Last Taken Unknown] oxycodone-acetaminophen 5 mg-325 mg tablet (Percocet) 1 tab PO Q8H PRN pain 3 days #10 tabs 11/10/23 [Rx Last Taken Unknown] sucralfate 100 mg/mL oral suspension (Carafate) 10 ml PO BID PRN abdominal pain #400 mL 11/10/23 [Rx Last Taken Unknown] ondansetron 4 mg disintegrating tablet 4 mg PO Q6H PRN nausea and vomiting #12 tabs 11/13/23 [Rx Last Taken Unknown] Allergy/AdvReac Type Severity Reaction Status Date / Time nectarine Allergy Angioedema Verified 11/13/23 16:05 metoclopramide [From Reglan] AdvReac headache Verified 11/13/23 16:05 Family History Mother Heart disease Pacemaker Grandfather Diabetes Grandmother Diabetes Surgical History History of colonoscopy (~2017) History of colonoscopy (~2017) History of esophagogastroduodenoscopy (EGD) (~2018) History of wisdom tooth extraction Social History household members: spouse Smoking Status: Light Smoker (<10/day) alcohol intake: never substance use type: does not use caffeine: Yes what type of physical activity do you participate in: walking seatbelt use: always do you feel safe at home: Yes additional social history: [employer] ROS ROS ED ROS Narrative Constitutional: No fever, no chills. HEENT: No sore throat. No neck pain. No loss of vision. No rhinorrhea. Cardiovascular: No chest pain. No palpitations. No pedal edema. Respiratory: No cough, no shortness of breath. Abdominal: Bilateral upper quadrant abdominal pain. 6 episodes of of nausea and vomiting in last 24 hours, nonbloody. Positive constipation. Genitourinary: No dysuria. No hematuria. Musculoskeletal: No myalgias. No arthralgias. Neurologic: No headaches. No dizziness. No lightheadedness. Skin: No rash. No change in color. Psychiatric: No depression. No anxiety. EXAM Physical Exam Narrative Exam Narrative: Afebrile. Vital signs noted. HEENT: Normocephalic. Atraumatic. PERRL, EOMI. Neck soft and supple. No point tenderness or step off. Cardiovascular: Regular rate and rhythm. No murmurs, rubs, or gallops appreciated. Respiratory: No tachypnea. Lungs clear to auscultation bilaterally. Gastrointestinal: Abdomen soft, nontender, with normoactive bowel sounds. No rebound or guarding. Negative Márquez sign. Neurological: Awake. Alert. Nonfocal, nonlateralizing. Skin: No rash. Normal color. No pallor. Musculoskeletal: No pedal edema. Full range of motion extremities. Const Vital Signs: 11/13/23 16:04 11/13/23 18:30 11/13/23 19:00 Temperature 97.7 F L 98.2 F Temperature Source Temporal Pulse Rate 91 76 Respiratory Rate 16 14 Blood Pressure 123/71 H 106/58 L 114/58 L Blood Pressure Mean 88 71 76 Pulse Ox 95 99 Oxygen Delivery Method Room Air MDM MDM MDM Narrative Medical decision making narrative: In the differential diagnosis is Crohn exacerbation versus continued gastritis. Also in the differential is nonspecific abdominal pain. I have low suspicion for obstruction. I reviewed the patient's prior ED visit and she had laboratory work performed and a CT which did show gastric wall thickening which may be consistent with gastritis versus gastric ulcers. Additionally, patient states that she received 3 different kinds of medications to control her pain, but Dilaudid was the only thing that was effective. I discussed with her that narcotic pain medication is not indicated currently, especially with a negative CT 4 days ago, and that I do not think that repeat CT is indicated. I will check her laboratory work to make sure that she is not dehydrated. She was bolused normal saline and administered ondansetron. I reviewed her laboratory work and she has slight leukocytosis of 14.4, up from the last few days. However, in review of her previous laboratory work she has a chronic leukocytosis. This may also be demargination from her vomiting. Her hemoglobin is normal at 13.3, hematocrit 40.6, platelet count normal at 360. Potassium is low at 3.1 with a chloride of 116, carbon dioxide 20 but normal anion gap of 6. Glucose is appropriately elevated at 79. LFTs are unremarkable with a normal lipase. I was able to discuss the patient with Dr. Alva who to whom she is transferring and going to see as supervisor looping. There was no mention of Crohn disease noted on her most recent CT. It was not felt that steroids were indicated, and he agrees with putting her on a PPI, dicyclomine, and Carafate. These were written for her and she states she has Protonix at home. She was given medication for cyclic vomiting including Ativan and Pepcid. She requested something more for pain, but after discussion with gastroenterology it was not felt that IV Dilaudid is indicated. She was given Bentyl intramuscular injection/ordered this. I reviewed her narcotics report as well, and I do not feel that she needs narcotic for home use and prescription form. She was given 1 Percocet tablet here along with 40 mill equivalents of potassium. At this point in time, I do not feel she requires admission, she will be discharged to follow-up with gastroenterology and her primary care provider. Disposition is discharged home in stable condition. History & Record Review Discussion w/independent historian: Patient Additional record(s) reviewed:: Prior ED visit and Prior labs Lab Data Attestation: I reviewed the patient's lab results. Labs: Laboratory Results - last 24 hr 11/13/23 17:25 WBC 14.4 H RBC 4.57 Hgb 13.3 Hct 40.6 MCV 88.8 MCH 29.1 MCHC 32.8 RDW Std Deviation 43.0 RDW Coeff of Dimitrios 13.3 Plt Count 360 MPV 9.3 Immature Gran % (Auto) 0.600 Neut % (Auto) 65.3 Lymph % (Auto) 25.8 [place] % (Auto) 5.9 Eos % (Auto) 1.6 Baso % (Auto) 0.8 Absolute Neuts (auto) 9.4 H Absolute Lymphs (auto) 3.71 Nucleated RBC % 0 Sodium 142 Potassium 3.1 L Chloride 116 H Carbon Dioxide 20.0 L Anion Gap 6 BUN 8 Creatinine 0.39 L Estim Creat Clear Calc 201.45 Est GFR (MDRD) Af Amer 241 Est GFR (MDRD) Non-Af 199 BUN/Creatinine Ratio 20.6 H Glucose 79 Calcium 7.3 L Total Bilirubin 0.30 AST 19 ALT 21 Alkaline Phosphatase 56 Total Protein 5.5 L Albumin 2.7 L Globulin 2.8 Albumin/Globulin Ratio 1.0 Lipase 22 Discharge Plan Triage Chief Complaint: Abd Pain ED Provider: Rad Wilkerson Dx/Rx/DC Orders Clinical Impression: Gastritis, Abdominal pain, Hypokalemia Instructions: ED Abdominal Pain Unkn Cause Fem, ED Gastritis (Adult), ED Hypokalemia Prescriptions: New ondansetron 4 mg tablet,disintegrating 4 mg PO Q6H PRN (Reason: nausea and vomiting) Qty: 12 0RF No Action citalopram 20 mg tablet 30 mg PO DAILY Patient Comments: TAKE 1 & 1/2 (ONE AND ONE-HALF) TABLETS BY MOUTH ONCE DAILY diphenoxylate-atropine [Lomotil] 2.5-0.025 mg tablet 1 tab PO 4X/DAY PRN PRN (Reason: diarrhea) 5 Days Qty: 20 0RF promethazine [promethazine] 25 mg tablet 25 mg PO Q6H PRN PRN (Reason: Nausea) Qty: 10 0RF ondansetron 4 mg tablet,disintegrating 4 mg PO Q8H PRN (Reason: nausea and vomiting) 3 Days Qty: 9 0RF dicyclomine 20 mg tablet 20 mg PO 4X/DAY PRN PRN (Reason: abdominal pain) oxycodone-acetaminophen [Percocet] 5-325 mg tablet 1 tab PO Q8H PRN (Reason: pain) 3 Days Qty: 10 0RF sucralfate [Carafate] 100 mg/mL suspension 10 ml PO BID PRN (Reason: abdominal pain) Qty: 400 0RF naproxen 500 mg tablet 500 mg PO Q8H Qty: 30 0RF Primary Care Provider: Azael Lr Referrals: Azael Lr MD [Primary Care Provider] - 1-2 Days if not improving Artie,DO Jeremiah [Med Staff - Active Staff] - As soon as possible Disposition Disposition: Home, Self Care Discharge Date/Time: 11/13/23 19:01
[2023-11-13] MEDS: Lorazepam 2 MG/ML WCH Syringe 0.5 MG IV (16:35)
[2023-11-13] MEDS: Ondansetron 4 MG/2 ML Vial IV (16:35)
[2023-11-13] MEDS: 0.9% Normal Saline (1000mL) 1,000 ML 1000 ML IV (16:35)
[2023-11-13] MEDS: Famotidine 200 MG/20 ML MDV 20 MG in 0.9% Normal Saline (Pres. free 8 ML 300 MG IV (17:04)
[2023-11-13 17:33] LABS: Absolute Lymphocyte Count 3.71 X10^3/uL (0.83-4.51); Absolute Neutrophil Count 9.4 X10^3/uL (2.0-7.7); Basophil# 0.11 X10^3/uL; Basophil% 0.8 % (0-1); Eosinophil# 0.23 X10^3/uL; Eosinophils% 1.6 % (0-5); Hematocrit 40.6 % (37-47); Hemoglobin 13.3 g/dL (12.0-15.0); Lymphocyte # 3.71 X10^3/ul (0.83-4.51); Lymphocyte % 25.8 % (19-41); Mean Corp Hgb Conc 32.8 g/dL (32-36); Mean Corpuscular Hgb 29.1 pg (27.0-32.0); Mean Corpuscular Volume 88.8 fL (81-99); Mean Platelet Vol. 9.3 fl (6.2-12.0); Monocyte# 0.85 X10^3/uL; Monocyte% 5.9 % (0-10); NRBC Flagged by Analyzer 0 % (0-5); Neutrophil # 9.42 X10^3/uL (2.7-7.7); Neutrophil % 65.3 % (47-70); Platelet Count 360 K/mm3 (150-450); RBC Distribution Width CV 13.3 % (11.6-14.6); Red Blood Count 4.57 M/mm3 (4.2-5.4); White Blood Count 14.4 K/mm3 (4.4-11.0)
[2023-11-13 17:51] LABS: AST(SGOT) 19 U/L (15-37); Alanine Aminotransfer ALT/SGPT 21 U/L (13-56); Albumin, Serum 2.7 g/dL (3.2-5.0); Alkaline Phosphatase 56 U/L (45-117); Anion Gap 6 (5-15); BUN 8 mg/dL (7-18); BUN/Creat Ratio 20.6 RATIO (10-20); Calcium,Total 7.3 mg/dL (8.5-10.1); Chloride 116 mmol/L (98-107); Creatinine, Serum 0.39 mg/dL (0.55-1.02); EST Glomerular Filtration Rate 199 mL/min (>60); Est Glom Filt Rate - Afr Amer 241 mL/min (>60); Estimated Creatinine Clearance 201.45 ml/min; Globulin 2.8 g/dL (2.2-4.2); Glucose 79 mg/dL (74-106); Lipase 22 U/L (13-75); Potassium 3.1 mmol/L (3.5-5.1); Protein, Total 5.5 g/dL (6.4-8.2); Sodium Level 142 mmol/L (136-145)
[2023-11-13 18:30] VITALS: BP 106/58
[2023-11-13] MEDS: Dicyclomine 20 MG/2 ML Vial IM (18:30)
[2023-11-13] MEDS: Potassium Chloride Oral Soln 20 MEQ/15 ML UDC 40 MEQ PO (18:30)
[2023-11-13] MEDS: Oxycodone/Apap 5/325 Tablet PO (18:30)
[2023-11-13 19:00] VITALS: BP 114/58; PULSE 76; RESP 14; TEMP 36.8; O2SAT 99
--- OUTSIDE RECORDS SUMMARY | 2023-11-13 22:44 | XMS RPT_ITS | CCD ---
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 Name Role Phone Milana Irene Primary Care Provider Milana Irene Primary Care Provider [phone] Milana Irene Kalyan Unavailable Milana Irene Primary Care Provider Milana Irene Kalyan Unavailable [phone] Milana Irene Primary Care Provider Hector Irenerell Kalyan Unavailable MILANA IRENE KALYAN Primary Care UnavailKRISTOFER Villagomez Attending Unavailable KRISTOFER ZULUAGA Attending Unavailable MILANA IRENE Referring Unavailfabiana IRENE MILANAJENNIFER BIGGS Primary Care UnavailLILO Monge Attending Unavailable MILANA IRENE Primary Care UnavailLAVON Max Attending Unavailable MILANA IRENE KALYAN Primary Care UnavailKRISTOFER Villagomez Referring Unavailable MILANA IRENE KALYAN Primary Care Unavailfabiana Irene MD, [facility] Provider Allergies Allergy Classification Reported Allergen(s) Allergy Type Date of Onset Reaction(s) Facility (19 sources) Morphine; Translations: [MORPHINE] Drug Allergy 5 Other (See Comments), Other: See [place] (2 sources) [place] Propensity to adverse reactions to drug 8 [place] (1 source) Other Propensity to adverse reactions 8 Swelling [facility] [place], [place] (18 sources) Metoclopramide; Translations: [METOCLOPRAMIDE ] Drug Allergy 2 Other: See Comments, Other [facility] (17 sources) Other Avalon-3s; Translations: [OTHER OMEGA-3S] Drug Allergy 8 Swelling [facility] (1 source) [place] fruit Propensity to adverse reactions 8 [facility] (1 source) Avalon-3 Drug Allergy 8 Swelling [facility] NEGATED: Highlighted row has been ruled out! (1 source) Other Propensity to adverse reactions [address] [facility] Medications Current Medications Medication Drug Class(es) Dates Sig (Normalized) Sig (Original) acetaminophen 325 mg oral tablet (18 sources) acetaminophen (T ylenol) 325 MG tablet Take 650 mg by mouth. 0 Active Completed/Discontinued Medications Medication Drug Class(es) Dates Sig (Normalized) Sig (Original) dicyclomine hydrochloride 20 mg oral tablet (20 sources) Anticholinergic Start: 12-20-2022 End: 06-06-2023 take 1 tablet by mouth four times daily as needed dicyclomine (BENTYL) 20 mg tablet Indications: Irritable bowel syndrome with diarrhea Take 1 tablet by mouth four times daily as needed. 120 tablet 5 06/06/2023 Active Problems Active Problems Problem Classification Problem [...] unspecified] 08-14-2018 Episodic Other upper respiratory disease (3 sources) Seasonal allergic rhinitis; Translations: [Other seasonal allergic rhinitis] Onset: 5 06-11-2016 Chronic Other upper respiratory disease (15 sources) Seasonal allergy; Translations: [Other seasonal allergic rhinitis] Onset: 5 08-28-2021 Chronic Regional enteritis and ulcerative colitis (20 sources) Crohn's disease of small intestine; Translations: [Ulcerative colitis] Onset: 7 Resolved: 8 07-20-2018 Chronic Substance-related disorders (16 sources) Nicotine dependence; Translations: [Nicotine dependence, unspecified, uncomplicated] Onset: 2 11-28-2021 Chronic Past or Other Problems Problem Classification Problem Date Documented Da te Episodic/Chronic Cardiac dysrhythmias (19 sources) Palpitations; Translations: [Palpitations] Onset: 06-09-2015 06-09-2015 Episodic Hemorrhoids (1 source) Internal hemorrhoids grade I; Translations: [First degree hemorrhoids] Onset: 04-10-2022 06-15-2022 Episodic Inflammatory diseases of female pelvic organs (1 source) Abscess of labia; Translations: [Abscess of vulva] Onset: 04-10-2022 06-15-2022 Episodic Malaise and fatigue (1 source) Fatigue; Translations: [Other fatigue] Onset: 09-06-2022 09-06-2022 Episodic Nausea and vomiting (20 sources) Nausea and vomiting; Translations: [Nausea with vomiting, unspecified] Onset: 10-01-2016 10-01-2016 Episodic Neoplasms of unspecified nature or uncertain behavior (2 sources) Neoplasm of uncertain behavior of skin; Translations: [Neoplasm of uncertain behavior of skin] Onset: 09-21-2020 09-21-2020 Episodic Noninfectious gastroenteritis (18 sources) Colitis; Translations: [Noninfective gastroenteritis and colitis, unspecified] Onset: 06-19-2015 Resolved: 03-03-2018 03-03-2018 Episodic Other complications of (2 sources) Maternal tobacco use; Translations: [Smoking (tobacco) complicating , unspecified trimester] Onset: 09-21-2020 09-21-2020 Episodic Other female genital disorders (2 sources) Labial cyst; Translations: [Vulvar cyst] Onset: 09-21-2020 09-21-2020 Episodic Other gastrointestinal disorders (2 sources) Diarrhea, unspecified; Translations: [Diarrhea, unspecified type] Onset: 09-10-2016 Episodic Spondylosis; intervertebral disc disorders; other back problems (3 sources) Acute low back pain; Translations: [Low back pain] Onset: 05-22-2021 Episodic Superficial injury; contusion (3 sources) Contusion of trunk; Translations: [Contusion of lower back and pelvis, initial encounter] Onset: 04-20-2021 Episodic Results Test Name Value Interpretation Reference Range Facil ity Vital Signs Date Time Vital Sign Value Performing Clinician Janak avendaño 03-14-2023 10:44-0400 Body height 162.6 cm Kristofer Zuluaga MD Work Phone: [facility] 03-14-2023 10:44-0400 Body weight 73.03 kg Kristofer Zuluaga MD Work Phone: [facility] 03-14-2023 10:44-0400 Diastolic blood pressure 79 mm[Hg] Kristofer Zuluaga MD Work Phone: [facility] 03-14-2023 10:44-0400 Heart rate 91 /min Kristofer Zuluaga MD Work Phone: [facility] 03-14-2023 10:44-0400 Systolic blood pressure 114 mm[Hg] Kristofer Zuluaga MD Work Phone: [facility] 12-20-2022 09:27-0400 Body height 162.6 cm Kristofer Zuluaga MD Work Phone: [facility] 12-20-2022 09:27-0400 Body weight 67.13 kg Kristofer Zuluaga MD Work Phone: [facility] 12-20-2022 09:27-0400 Diastolic blood pressure 79 mm[Hg] Kristofer Zuluaga MD Work Phone: [facility] 12-20-2022 09:27-0400 Heart rate 100 /min Kristofer Zuluaga MD Work Phone: [facility] 12-20-2022 09:27-0400 Systolic blood pressure 118 mm[Hg] Kristofer Zuluaga MD Work Phone: [facility] 01-08-2022 09:23-0400 Diastolic blood pressure 76 mm[Hg] Kelechi Linder MD Work Phone: [facility] 01-08-2022 09:23-0400 SaO2% (BldA) [Mass fraction] 100 % Kelechi Linder MD Work Phone: [facility] 01-08-2022 09:23-0400 Systolic blood pressure 131 mm[Hg] Kelechi Linder MD Work Phone: [facility] 01-08-2022 09:03-0400 Respiratory rate 16 /min Kelechi Linder MD Work Phone: [facility] 01-08-2022 08:33-0400 Body temperature 97.9 [degF] Kelechi Linder MD Work Phone: [facility] 01-08-2022 08:33-0400 Heart rate 78 /min Kelechi Linder MD Work Phone: [facility] 01-08-2022 07:31-0400 Body height 162.6 cm Kelechi Linder MD Work Phone: [facility] 01-08-2022 07:31-0400 Body weight 68.04 kg Kelechi Linder MD Work Phone: [facility] 12-26-2021 14:45-0400 Body height 162.6 cm Kelechi Linder MD Work Phone: [facility] 12-26-2021 14:45-0400 Body weight 69.04 kg Kelechi Linder MD Work Phone: [facility] 12-26-2021 14:45-0400 Diastolic blood pressure 66 mm[Hg] Kelechi Linder MD Work Phone: [facility] 04-26-2022 14:45-0400 Heart rate 94 /min Kelechi Linder MD Work Phone: [facility] 12-26-2021 14:45-0400 SaO2% (BldA) [Mass fraction] 99 % Kelechi Linder MD Work Phone: [facility] 12-26-2021 14:45-0400 Systolic blood pressure 124 mm[Hg] Kelechi Linder MD Work Phone: [facility] Encounters Encounter Date Encounter Type Care Provider Facility Start: 11-13-2023 Telephone encounter Milana Sellers MD Work Phone: [facility] Family Medicine Procedures Date Procedure Procedure Detail Performing Clinician Start: 03-13-2023 Breath hydrogen/meth ane test Kristofer Zuluaga MD Work Phone: Start: 01-16-2022 Gastric emptying giovanny ging study Kelechi Linder MD Work Phone: Start: 01-08-2022 Urine test visual color cmprsn meths Susana Burton TRAVEL GUIDE.BAGGAGE PORTER Work Phone: Start: 02-05-2020 VL MESENTERIC ARTERY DUPLEX SCAN Milana Irene Work Phone: Start: 10-02-2019 Microscopic observat ion [Identifier] in Cervix by Cyto stain Milana Irene MD Work Phone: Plan of Treatment Date Care Activity Detail Author Start: 2047 HEPATITIS B (1 of 3 - Risk 3-dose series) HEPATITIS B (1 of 3 - Risk 3-dose series) [facility] Start: 2047 Hepatitis B Vaccine (1 of 3 - Risk 3-dose series) Hepatitis B Vaccine (1 of 3 - Risk 3-dose series) [facility] Start: 2047 RSV Immunization aged 60 or older (1 - 1-dose 60+ series) RSV Immunization aged 60 or older (1 - 1-dose 60+ series) [facility] Start: 11-28-2037 Zoster Vaccines (1 of 2) Zoster Vaccines (1 of 2) [facility] Start: 09-08-2033 DTaP/Tdap/Td Vaccines (3 - Td or Tdap) DTaP/Tdap/Td Vaccines (3 - Td or Tdap) [facility] Start: 05-19-2029 DTaP/Tdap/Td vaccine (2 - Td or Tdap) DTaP/Tdap/Td vaccine (2 - Td or Tdap) [facility] Work Phone: Start: 05-19-2029 DTaP/Tdap/Td vaccine (2 - Td) DTaP/Tdap/Td vaccine (2 - Td) [place] Start: 05-03-2023 Influenza vaccination [facility] Start: 03-14-2023 End: 05-14-2023 PANC ELASTASE, FECAL PANC ELASTASE, FECAL Lab Routine Diarrhea, unspecified type Expected: 03/14/2023, Expires: 05/14/2023 [facility] Work Phone: Immunizations Immunization Date Immunization Notes Care Provider Fa cility 05-19-2019 tetanus toxoid, redu genia diphtheria toxoid, and acellular pertussis vaccine, adsorbed Milana Irene MD Work Phone: [facility] Payers Date Payer Category Payer Unknown HOSPITAL/MEDICAL GENERIC MEDICAL GENERIC [id number] 2021-Present [phone] [address] [place] [address] Indemnity [id number] [facility] CHOICE PLUS [id number] 2021-Present [phone] [address] [place] [address] O [id number] 2021 Private Health Insurance [id number] 2021 Unknown [id number] 2021 Unknown [id number] 2021 Unknown [id number] 2015 Unknown BCBS [place] P PO xxxxxxxxxxxx 2015-Present [address] [place] [address] xxxxxxxxxxxx [id number] 2015 Unknown BC[place] PO [id number] 2015-Present [address] [place] [address] [id number] Social History Date Type Detail Facility Start: 03-03-2004 End: 09-06-2022 Tobacco smoking status NHIS Current every day sm[place] Start: 03-03-2004 End: 09-02-2018 History of tobacco use Cigarette Sm[place] Start: 12-01-2018 End: 09-06-2022 Cigarettes smoked current (pack per day) - Reported [facility] Start: 12-01-2018 End: 09-06-2022 Alcohol intake Current drinker of alcohol (finding) [place] Start: 06-09-2015 Alcohol Comment occ [facility] Kapil [place] Start: 1985 Sex Assigned At Not on file [place] Start: 05-22-2021 Tobacco smoking stat us SDIS Former smoker [facility] Work Phone: Start: 03-03-2004 End: 09-02-2018 History of tobacco use Current smoker [facility] Start: 05-22-2021 End: 09-06-2022 Tobacco use and exposure Never used [facility] Start: 04-20-2021 History SDOH Alcohol Frequency 1 [facility] Work Phone: Start: 04-20-2021 History SDOH Financial 5 [facility] Work Phone: Start: 04-20-2021 History SDOH Transpo rt Med 2 [facility] Work Phone: Start: 11-13-2021 End: 06-18-2022 Exposure to SARS-CoV-2 (event) Not sure [facility] Start: 11-23-2021 End: 03-14-2023 Alcohol intake Current non-drinker of alcohol (finding) [facility] Start: 09-06-2022 End: 12-20-2022 Tobacco use panel [facility] PHQ2 Score 0 [facility] Goals Date Patient Goal Desired Activity /State Clinical Notes 12-25-2021 to 11-13-2023 Telephone Encounter - Celine Coleman - 11/13/2023 1:02 PM EDTTelephone Encounter - Celine Coleman - 11/13/2023 1:02 PM EDTTelephone Encounter - Margarita Lang MA - 11/13/2023 11:21 AM EDT Note Date & Type Note Facility 11-13-2023 Telephone encounter Note Message released to patient as written. Patient's further questions if applicable: Pt had no questions. Were all questions from office addressed or relayed to the patient from encounter: Yes [facility] 11-13-2023 Miscellaneous Notes Message released to patient as written. Patient's further questions if applicable: Pt had no questions. Were all questions from office addressed or relayed to the patient from encounter: Yes Refer to Provider: AMRIK MISHRAN Address: [address] [place] [address], [address] Called Deepa Left a message to return call. Referral was entered for her. Referral done Name of caller: Deepa Contact phone number: [phone] Relationship to Patient: patient Provider: Be [facility]: [facility] Chief Complaint/Reason for Call: Patient went to ER on 3.10.2024 with extreme stomach pains radiating to her chest and back. Vomiting. The ER doctor recommended a barrel assembler (Dr Daniels Friend- phone # [phone]). Patient needs a referral to this doctor. Please inform patient when completed. Please advise. Best time of day caller can be reached: any Patient advised that office/PCP has 24-48 business hours to return their call: Yes documented in this encounter [facility] 11-13-2023 Telephone encounter Note Refer to Provider: JOSE GUADALUPE MISHRA Address: [facility] [address], [address] Called Deepa, Left a message to return call. Referral was entered for her. [facility] 11-13-2023 Telephone encounter Note Referral done [facility] 11-13-2023 Telephone encounter Note Name of caller: Deepa Contact phone number: [phone] Relationship to Patient: patient Provider: Be [facility]: [facility] Chief Complaint/Reason for Call: Patient went to ER on 11.10.2023 with extreme stomach pains radiating to her chest and back. Vomiting. The ER doctor recommended a barrel assembler (Dr Daniels Friend- phone # [phone]). Patient needs a referral to this doctor. Please inform patient when completed. Please advise. Best time of day caller can be reached: any Patient advised that office/PCP has 24-48 business hours to return their call: Yes [facility] 09-17-2023 Note HNO ID: [id number] Author: LAVON DEWITT APRN.BAGGAGE PORTER Service: ? Author Type: Nurse Practitioner Type: Progress Notes Filed: 09/17/2023 10:54 Note Text: Department of Dermatology Lavon Dewitt APRN.BASSEM 09/17/2023 Last visit in Dermatology: Visit date [...] in groin area. Subjective and Objective HPI: Deepa Fuller is a 37 year old female who [...] Physical Exam included: External genitals Ban Delarosa APRN.BAGGAGE PORTER (training) I have seen and evaluated the patient and discussed the case with the PA/COPY CHASER trainee. I agree with the assessment and plan as documented in the PA/COPY CHASER's note. Lavon Dewitt APRN.CNP [facility] 06-11-2023 Miscellaneous Notes OUTSIDE MEDICAL RECORD REVIEW AND SUMMARY Referring Provider/Address: No referring provider defined for this encounter. Specialty: Women's Health Patient's Location: [facility] [address] [facility] [address] Pages of records reviewed: < 10 Problem: [...] Scanned to chart documented in this encounter [facility] 03-14-2023 Note HNO ID: [id number] Author: Kristofer Zuluaga MD Service: ? Author Type: Physician Type: Progress Notes Filed: 03/14/2023 11:28 AM Note Text: HPI: Deepa Fuller is a 37 year old female who [...] (FLONASE) 50 mcg/actuation nasal spray Use 1 [place] in the nose. Loperamide HCl (IMODIUM) 2 [...] , has safely taken percocet, dilaudid Other Avalon-3s Swelling NECTARINES Reglan [Metoclopram* Other: See Comments [...] test neg for SIBO. Kristofer Zuluaga MD [facility] 03-14-2023 History of Present illness Narrative HPI: Deepa Fuller is a 37 year old female who [...] (FLONASE) 50 mcg/actuation nasal spray Use 1 [place] in the nose. Loperamide HCl (IMODIUM) 2 [...] , has safely taken percocet, dilaudid Other Avalon-3s Swelling NECTARINES Reglan [Metoclopram* Other: See Comments [...] Kristofer Zuluaga MD documented in this encounter [facility] 03-13-2023 Note HNO ID: [id number] Author: Mitzi Howard RN Service: ? Author Type: Registered Nurse Type: Progress Notes Filed: 03/13/2023 3:44 PM Note Text: Name: Deepa Fuller [facility]#: [id number] Date: 03/13/2023 GLUCOSE - BREATH HYDROGEN AND [...] hydrogen/methane test was completed. .Mitzi Howard RN [facility] 03-13-2023 History of Present illness Narrative Name: Deepa Burtony [facility]#: [id number] Date: 03/13/2023 GLUCOSE - BREATH HYDROGEN & [...] .Mitzi Howard RN documented in this encounter [facility] 12-20-2022 Note HNO ID: [id number] Author: Kristofer Zuluaga MD Service: ? Author Type: Physician Type: Progress Notes Filed: 12/20/2022 9:54 AM Note Text: HPI: Deepa Fuller is a 37 year old female who [...] (FLONASE) 50 mcg/actuation nasal spray Use 1 [place]by in the nose. Loperamide HCl (IMODIUM) 2 [...] of Onset Coronary Artery Disease Mother Hx [place] age 45 Diabetes Maternal Grandmother Social History Tobacco Use Smoking status: Every Day Packs/day: 0.50 Types: Cigarettes Smokeless tobacco: Never Vaping Use Vaping Use: Never used Substance Use Topics Alcohol use: No Drug use: No ALLERGIES Allergen Reactions Morphine Other: See Comments Heart feels funny , has safely taken percocet, dilaudid Other Avalon-3s Swelling NECTARINES Reglan [Metoclopram* Other: See Comments [...] masses or organomegaly. (more content not included)... [facility] 12-20-2022 History of Present illness Narrative HPI: Deepa Fuller is a 37 year old female who [...] 1 TABLET BY MOUTH TWICE DAILY pantoprazole (PROTONIX) 40 mg tablet Take 1 tablet [...] (FLONASE) 50 mcg/actuation nasal spray Use 1 L[place]by in the nose. Loperamide HCl (IMODIUM) 2 [...] of Onset Coronary Artery Disease Mother Hx [place] age 45 Diabetes Maternal Grandmother Social History Tobacco Use Smoking status: Every Day Packs/day: 0.50 Types: Cigarettes Smokeless tobacco: Never Vaping Use Vaping Use: Never used Substance Use Topics Alcohol use: No Drug use: No ALLERGIES Allergen Reactions Morphine Other: See Comments Heart feels funny , has safely taken percocet, dilaudid Other Avalon-3s Swelling NECTARINES Reglan [Metoclopram* Other: See Comments [...] Kristofer Zuluaga MD documented in this encounter [facility] 01-23-2022 Miscellaneous Notes The following approved medication requests have been transmitted electronically. Signed Prescriptions Disp Refills promethazine (PHENERGAN) 12.5 mg tablet 100 tablet 3 Sig: TAKE 1 TABLET BY MOUTH EVERY 6 HOURS NEEDED BRIANDA: No Authorizing Provider: KELECHI LINDER MD documented in this encounter [facility] 01-16-2022 Miscellaneous Notes Patient notified and verbalized [...] her nausea? Thanks documented in this encounter [facility] 01-16-2022 History of Present illness Narrative RADIOLOGY SERVICE PROGRESS NOTE SERVICE [...] 0720 PATIENT DISCHARGED TO: Ambulatory patient, left [place] department area. A Diagnostic radioactive procedure has taken place, with no further precautions necessary other than routine body substance precautions. More information regarding radiation safety can be found using this link: [email or web address] SIGNATURE: RT Xochitl(Yan) PATIENT NAME: Deepa Fuller DATE: January 16, 2022 TIME: 7:36 AM PAGER/CONTACT #: documented in this encounter [facility] 01-10-2022 Miscellaneous Notes Patient notified and verbalized understanding. Sridevi Lozano MA January 10, 2022 1:24 PM Tell pt that her colon bx's are normal She should get GES done as scheduled next week Thanks documented in this encounter [facility] 01-08-[address] Linder saw the [...] and is on her cell phone. Dr. Linder saw the patient. He ok'd pain medications. He assessed her abdomen which was soft and non distended. He will return to reassess her The patient returned from ambulating to the restroom. She said she passed a small amount of air. She said her pain is still a /10. {When I am talking to the patient she is not complaining of pain. She does have her arms crossed across her abdomen. Nursing Progress Note Patient Name: Deepa Fuller Patient Location: Room/bed info not found __ Daily Note: Patients abdomen is soft and [...] Her was updated. documented in this encounter [facility] 01-08-2022 Miscellaneous Notes OPERATIVE/PROCEDURE REPORT LOG ID: [id number] Surgery/Procedure Date: 01/08/2022 Incision/Procedure Start Time: 8:15 AM Incision Close/Procedure End Time: 8:29 AM Surgeon(s)/Proceduralist(s) and Metal Casket Maker(s): Kelechi Linder MD - Proceduralist No Additional [...] MD SIGNATURE: Kelechi Linder MD PATIENT NAME: Deepa Fuller DATE: January 08, 2022 TIME: 8:32 AM PAGER/CONTACT #: [phone] documented in this encounter [facility] 01-08-2022 History and physical note UPDATED HISTORY [...] today. SIGNATURE: Kelechi Linder MD PATIENT NAME: Deepa Fuller DATE: January 08, 2022 TIME: 8:00 AM HISTORY AND PHYSICAL EXAMINATION SERVICE DATE: 01/08/2022 SERVICE TIME: 7:46 AM PRIMARY CARE PHYSICIAN: Milana Irene MD REASON FOR VISIT: Deepa Fuller is a 36 year old female who [...] 36 year old female who presents [facility] for the above procedure. Patient complains [...] of Onset Coronary Artery Disease Mother Hx SC age 45 Diabetes Maternal Grandmother SOCIAL HISTORY: Social History Tobacco Use Smoking status: Current Every Day Smoker Packs/day: 0.50 Smokeless tobacco: Never Used Vaping Use Vaping Use: Never used Substance Use Topics Alcohol use: No Drug use: No Prior to Admission medications as of 12/26/21 4489 Medication Sig Last Dose Taking dicyclomine (BENTYL) [...] (FLONASE) 50 mcg/actuation nasal spray Use 1 L[place]by in the nose. Loperamide HCl (IMODIUM) 2 mg tab Take 1 tablet by mouth four times daily as needed. L.ACIDOPH/B.LONG/L.PLANT/B.LAC (PROBIOTIC ACIDOPHILUS BEADS ORAL) Take by mouth. Cetirizine (ZYRTEC) 10 mg cap Take 10 mg by mouth once daily. No medication comments found. ALLERGIES Allergen Reactions Morphine Other: See Comments Heart feels funny , has safely taken percocet, dilaudid Other Avalon-3s Swelling NECTARINES Reglan [Metoclopram* Other: See Comments Blurry vision REVIEW OF SYSTEMS: PAIN ASSESSMENT: Pain Pain Level: 8 Pain Location: Abdomen Pain Assessment (RN/MORTGAGE OPERATIONS MANAGER): Assessment Tool: Verbal (Numeric Rating or Visual [...] MAC SIGNATURE: Ethel Nieto APRN.CNP PATIENT NAME: Deepa Fuller DATE: January 08, 2022 TIME: 7:46 AM PAGER/CONTACT #: documented in this encounter [facility] 12-26-2021 Miscellaneous Notes Colonoscopy order placed and [...] 2021 3:32 PM documented in this encounter [facility] 12-25-2021 History of Present illness Narrative HPI: Deepa Fuller is a 36 year old female who presents for f/u - last seen 07/2021. She has gained 6#. She was in [facility] in October for upper abd pain. She [...] (FLONASE) 50 mcg/actuation nasal spray Use 1 [place] in the nose. Loperamide HCl (IMODIUM) 2 [...] of Onset Coronary Artery Disease Mother Hx SC age 45 Diabetes Maternal Grandmother Social History Tobacco Use Smoking status: Current Every Day Smoker Packs/day: 0.50 Smokeless tobacco: Never Used Vaping Use Vaping Use: Never used Substance Use Topics Alcohol use: No Drug use: No ALLERGIES Allergen Reactions Morphine Other: See Comments Heart feels funny , has safely taken percocet, dilaudid Other Avalon-3s Swelling NECTARINES Reglan [Metoclopram* Other: See Comments [...] Kelechi Linder MD documented in this encounter [facility] 12-25-2021 Miscellaneous Notes The following approved medication [...] TAKE 1 TABLET BY MOUTH TWICE DAILY BRINADA: Yes ALLERGIES Allergen Reactions Morphine Other: See Comments Heart feels funny , has safely taken percocet, dilaudid Other Avalon-3s Swelling NECTARINES Reglan [Metoclopram* Other: See Comments Blurry vision (home) [phone] (cell) Last Office Visit Date: 07/03/2021 Last Distance Health Visit: Visit date not found Future Appointment: 12/26/2021 The patients preferred pharmacy has been captured for this encounter? yes Request is for script(s) to be escript to pharmacy. Sridevi Lozano MA documented in this encounter [facility]: Evaluation note* Diagnosis Abdominal pain, unspecified abdominal location- Primary Diarrhea, unspecified type Colitis Other and unspecified noninfectious gastroenteritis and colitis Gastroesophageal reflux disease without esophagitis Esophageal reflux Nausea and vomiting, unspecified vomiting type Nausea Nausea alone [facility] Diagnosis Abdominal pain, unspecified abdominal location- Primary Diarrhea, unspecified type [facility] Diagnosis Abdominal pain, unspecified abdominal location Diarrhea, unspecified type Preop testing Preoperative examination, unspecified Palpitations [facility]* Diagnosis Nausea Nausea alone documented [facility]* Diagnosis Diarrhea, unspecified type- Primary Irritable bowel syndrome with diarrhea Irritable bowel syndrome Nausea and vomiting, unspecified vomiting type [facility]* Diagnosis Diarrhea, unspecified type Nausea and vomiting, unspecified vomiting type [facility]* Diagnosis Diarrhea, unspecified type- Primary Irritable bowel syndrome with diarrhea Irritable bowel syndrome Nausea Nausea alone documented [facility]* Diagnosis Irritable bowel syndrome with diarrhea Irritable bowel syndrome [facility]* Diagnosis Left upper quadrant abdominal pain- Primary Lower abdominal pain Abdominal pain, other specified site Right upper quadrant abdominal pain [facility] Diagnostic Procedure Only (Routine) - Authorized Specialty Diagnoses / Procedures Referred By Demar t Referred To Contact MOLECULAR & FUNCTIONAL IMAGING Diagnoses Nausea Procedures NM GASTRIC EMPTYING SOLID GASTRIC EMPTYING STUDY Kelechi Linder MD [address] [place] [id number] Molecular [facility] Functional [facility] [address] [place] [address] Referral ID Status Reason Start Date Expiration Date Visits Requested Visits Authorized [id number] Authorized Auto-Generat ed Referral 12/26/2021 01/25/2023 1 1 [facility] for referral (narrative)* Outpatient Procedure (Routine) - Pending Review Specialty Diagnoses / Procedures Referred By Contac t Referred To Contact [facility] Diagnoses Abdominal pain, unspecified abdominal location Diarrhea, unspecified type Procedures COLONOSCOPY DIAGNOSTIC COLONOSCOPY FLX DX W/COLLJ SPEC WHEN Kelechi Malik MD [address] [place] [address] [address] Referral ID Status Reason Start Date Expiration Date Visits Requested Visits Authorized [id number] Pending Review Auto-Generat ed Referral 12/26/2021 12/26/2022 1 1 [facility] for referral (narrative)* Outpatient Procedure (Routine) - Closed Specialty Diagnoses / Procedures Referred By Contac t Referred To Contact [facility] Diagnoses Abdominal pain, unspecified abdominal location Diarrhea, unspecified type Procedures COLONOSCOPY DIAGNOSTIC COLONOSCOPY FLX DX W/COLLJ SPEC WHEN Kelechi Malik MD [address] [place] [address] [address] Referral ID Status Reason Start Date Expiration Date V isits Requested Visits Authorized [id number] Closed Auto-Generate d Referral 01/08/2022 12/26/2022 1 1 [facility] for referral (narrative)* Diagnostic Procedure Only (Routine) - Closed Specialty Diagnoses / Procedures Referred By Contac t Referred To Contact MOLECULAR & FUNCTIONAL IMAGING Diagnoses Nausea Procedures NM GASTRIC EMPTYING SOLID GASTRIC EMPTYING STUDY Kelechi Linder MD [address] [place] [id number] Molecular [facility] Functional [facility] [address] [place] [address] Referral ID Status Reason Start Date Expiration Date V isits Requested Visits Authorized [id number] Closed Auto-Generate d Referral 12/26/2021 01/25/2023 1 1 [facility] for referral (narrative)* Outpatient Procedure (Routine) - Pending Review Specialty Diagnoses / Procedures Referred By Contac t Referred To Contact [facility] Diagnoses Diarrhea, unspecified type Nausea and vomiting, unspecified vomiting type Procedures BREATH TEST GLUCOSE BREATH HYDROGEN/METHANE TEST Kristofer Zuluaga MD [address] [facility] [address] [place] [address] [facility] [address] [place] [address] Referral ID Status Reason Start Date Expiration Date Visits Requested Visits Authorized [id number] Pending Review Auto-Generat ed Referral 12/20/2022 12/21/2023 1 1 [facility] for referral (narrative)* Consultation (Routine) - Pending Review Specialty Diagnoses / Procedures Referred By Contac t Referred To Contact Gastroenterology Diagnoses Left upper quadrant abdominal pain Lower abdominal pain Right upper quadrant abdominal pain Procedures ND OFFICE/OUTPATIENT NEW HIGH MDM 60 MINUTES Milana Irene MD [address] [place] [address], [place] [address] Friend, Jose Guadalupe [address] [facility], [address] [place] [address] Referral ID Status Reason Start Date Expiration Date Visits Requested Visits Authorized [id number] Pending Review Specialty Services Required 11/13/2023 11/12/2024 1 1 T [facility] for visit Narrative* Outpatient Procedure (Routine) - Closed Specialty Diagnoses / Procedures Referred By Contac t Referred To Contact [facility] Diagnoses Abdominal pain, unspecified abdominal location Diarrhea, unspecified type Procedures COLONOSCOPY DIAGNOSTIC COLONOSCOPY FLX DX W/COLLJ SPEC WHEN Kelechi Malik, MD [address] [facility] [address] [place] [address] [facility] [place] [address] [place] [address] Referral ID Status Reason Start Date Expiration Date V isits Requested Visits Authorized [id number] Closed Auto-Generate d Referral 01/08/2022 12/26/2022 1 1 [facility]* Diagnostic Procedure Only (Routine) - Closed Specialty Diagnoses / Procedures Referred By Contac t Referred To Contact MOLECULAR & FUNCTIONAL IMAGING Diagnoses Nausea Procedures NM GASTRIC EMPTYING SOLID GASTRIC EMPTYING STUDY Kelechi Linder MD [address] [address] Molecular & Functional Imaging [address] [place] [address] Referral ID Status Reason Start Date Expiration Date V isits Requested Visits Authorized [id number] Closed Auto-Generate d Referral 12/26/2021 01/25/2023 1 1 [facility] Reason for Referral Status Reason Specialty Diagnoses / Procedures Referre d By Contact Referred To Contact Open Radiology Diagnoses Right upper quadrant abdominal pain Procedures VL MESENTERIC ARTERY DUPLEX SCAN Milana Irene MD [address] [place] [address], [place] [address] Assessments Diagnosis Right upper quadrant abdominal pain Abdominal pain, right upper quadrant Advance Directives Documents on File Type Date Recorded Patient Planning Management It Specialist Expl anation Advance Directives and Living Will Power of Blending Operator Documents on File Type Date Recorded Patient Planning Management It Specialist Expl anation ACP-Advance Directive ACP-Power of Blending Operator Documents on File Type Date Recorded Patient Planning Management It Specialist Expl anation Advance Directive(s) 11/24/2021 1:37 PM Advance Directive(s) 11/23/2021 10:50 PM Advance Directive(s) 11/01/2021 7:19 PM Advance Directive(s) 09/15/2021 1:31 PM Advance Directive(s) 09/06/2021 8:29 AM Advance Directive(s) 08/29/2021 6:40 PM Advance Directive(s) 12/07/2018 10:39 AM Advance Directive(s) 12/10/2017 1:32 PM Advance Directive(s) 06/27/2017 10:00 AM Documents on File Type Date Recorded Patient Planning Management It Specialist Expl anation Advance Directive(s) 11/24/2021 1:37 PM Advance Directive(s) 11/23/2021 10:50 PM Advance Directive(s) 11/01/2021 7:19 PM Advance Directive(s) 09/15/2021 1:31 PM Advance Directive(s) 09/06/2021 8:29 AM Advance Directive(s) 08/29/2021 6:40 PM Advance Directive(s) 12/07/2018 10:39 AM Advance Directive(s) 12/10/2017 1:32 PM Advance Directive(s) 06/27/2017 10:00 AM Documents on File Type Date Recorded Patient Planning Management It Specialist Expl anation Advance Directive(s) 01/08/2022 7:45 AM Advance Directive(s) 11/24/2021 1:37 PM Advance Directive(s) 11/23/2021 10:50 PM Advance Directive(s) 11/01/2021 7:19 PM Advance Directive(s) 09/15/2021 1:31 PM Advance Directive(s) 09/06/2021 8:29 AM Advance Directive(s) 08/29/2021 6:40 PM Advance Directive(s) 12/07/2018 10:39 AM Advance Directive(s) 12/10/2017 1:32 PM Advance Directive(s) 06/27/2017 10:00 AM Documents on File Type Date Recorded Patient Planning Management It Specialist Expl anation Advance Directive(s) 01/08/2022 7:45 AM Advance Directive(s) 11/24/2021 1:37 PM Advance Directive(s) 11/23/2021 10:50 PM Advance Directive(s) 11/01/2021 7:19 PM Advance Directive(s) 09/15/2021 1:31 PM Advance Directive(s) 09/06/2021 8:29 AM Advance Directive(s) 08/29/2021 6:40 PM Advance Directive(s) 12/07/2018 10:39 AM Advance Directive(s) 12/10/2017 1:32 PM Advance Directive(s) 06/27/2017 10:00 AM Documents on File Type Date Recorded Patient Planning Management It Specialist Expl anation Advance Directive(s) 01/22/2022 5:50 PM [...] DATE CREATED AUTHOR AUTHOR'S ORGANIZ ATION 05/03/2021 [facility] DATE CREATED AUTHOR AUTHOR'S ORGANIZ ATION 07/08/2021 [facility] DATE CREATED AUTHOR AUTHOR'S ORGANIZ ATION 09/08/2023 [facility] DATE CREATED AUTHOR AUTHOR'S ORGANIZ ATION 09/10/2023 [facility] DATE CREATED AUTHOR AUTHOR'S ORGANIZ ATION 09/18/2023 [facility] Source Comments (unrecognize d section and content) In the event this informatio n is protected by the Federal Confidentiality of Alcohol and Drug Abuse Patient Records regulations: The Federal rules restrict any use of the information to criminally investigate or prosecute any alcohol or drug abuse patient.[facility] the event this information is protected by the Federal Confidentiality of Alcohol and Drug Abuse Patient Records regulations: The Federal rules restrict any use of the information to criminally investigate or prosecute any alcohol or drug abuse patient.[facility] the event this information is protected by the Federal Confidentiality of Alcohol and Drug Abuse Patient Records regulations: The Federal rules restrict any use of the information to criminally investigate or prosecute any alcohol or drug abuse patient.[facility] the event this information is protected by the Federal Confidentiality of Alcohol and Drug Abuse Patient Records regulations: The Federal rules restrict any use of the information to criminally investigate or prosecute any alcohol or drug abuse patient.[facility] the event this information is protected by the Federal Confidentiality of Alcohol and Drug Abuse Patient Records regulations: The Federal rules restrict any use of the information to criminally investigate or prosecute any alcohol or drug abuse patient.[facility] the event this information is protected by the Federal Confidentiality of Alcohol and Drug Abuse Patient Records regulations: The Federal rules restrict any use of the information to criminally investigate or prosecute any alcohol or drug abuse patient.[facility] the event this information is protected by the Federal Confidentiality of Alcohol and Drug Abuse Patient Records regulations: The Federal rules restrict any use of the information to criminally investigate or prosecute any alcohol or drug abuse patient.[facility] the event this information is protected by the Federal Confidentiality of Alcohol and Drug Abuse Patient Records regulations: The Federal rules restrict any use of the information to criminally investigate or prosecute any alcohol or drug abuse patient.[facility] the event this information is protected by the Federal Confidentiality of Alcohol and Drug Abuse Patient Records regulations: The Federal rules restrict any use of the information to criminally investigate or prosecute any alcohol or drug abuse patient.[facility] the event this information is protected by the Federal Confidentiality of Alcohol and Drug Abuse Patient Records regulations: The Federal rules restrict any use of the information to criminally investigate or prosecute any alcohol or drug abuse patient.[facility] the event this information is protected by the Federal Confidentiality of Alcohol and Drug Abuse Patient Records regulations: The Federal rules restrict any use of the information to criminally investigate or prosecute any alcohol or drug abuse patient.[facility]In the event this information is protected by the Federal Confidentiality of Alcohol and Drug Abuse Patient Records regulations: The Federal rules restrict any use of the information to criminally investigate or prosecute any alcohol or drug abuse patient.[facility]In the event this information is protected by the Federal Confidentiality of Alcohol and Drug Abuse Patient Records regulations: The Federal rules restrict any use of the information to criminally investigate or prosecute any alcohol or drug abuse patient.[facility]In the event this information is protected by the Federal Confidentiality of Alcohol and Drug Abuse Patient Records regulations: The Federal rules restrict any use of the information to criminally investigate or prosecute any alcohol or drug abuse patient.[facility]In the event this information is protected by the Federal Confidentiality of Alcohol and Drug Abuse Patient Records regulations: The Federal rules restrict any use of the information to criminally investigate or prosecute any alcohol or drug abuse patient.[facility] Reason for Visit (unrecogniz ed section and [...] BREATH HYDROGEN/METHANE TEST Kristofer Zuluaga MD 1 [facility] [address] [place] [address] [facility] [address] [place] [address] Referral ID Status Reason Start Date Expiration Date V isits Requested Visits Authorized [id number] Closed Auto-Generate d Referral 12/20/2022 12/21/2023 1 1 Reason Comments F/U 3 Month Reason Comments Received Outside Medical Records Reason Onset Date Comments Needs referral barrel assembler 11/13/2023 ER visit. Told to schedule with barrel assembler. 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 Specialty Start Date End Date Milana Irene [address] [place] [address] PCP - General Family Practice 06/22/15 Milana Ireneoy [address] [facility] [place] [address] Family Practice 06/22/15 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 Specialty Start Date End Date Milana Irene [address] [place] [address] PCP - General Family Practice 06/22/15 Milana Irene [address] [place] [address] Family Practice 06/22/15 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 Specialty Start Date End Date Milana Irene [address] [place] [address] PCP - General Family Practice 06/22/15 Milana Irene [address] [place] [address] Family Practice 06/22/15 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 Specialty Start Date End Date Milana Irene [address] [place] [address] PCP - General Family Practice 06/22/15 Milana Irene [address] [place] [address] Family Practice 06/22/15 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 Specialty Start Date End Date Milana Irene [address] [place] [address] PCP - General Family Practice 06/22/15 Milana Irene [address] [place] [address] Family Practice 06/22/15 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 Specialty Start Date End Date Milana Irene [address] [place] [address] PCP - General Family Practice 06/22/15 Milana Irene [address] [place] [address] Family Practice 06/22/15 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 Specialty Start Date End Date Milana Irene [address] [place] [address] PCP - General Family Medicine 06/22/15 Milana Irene [address] [place] [address] Family Medicine 06/22/15 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 Specialty Start Date End Date Milana Irene [address] [place] [address] PCP - General Family Medicine 06/22/15 Milana Irene [address] [place] [address] Family Medicine 06/22/15 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 Specialty Start Date End Date Milana Irene [address] [place] [address] PCP - General Family Medicine 06/22/15 Milana Irene [address] [place] [address] Family Medicine 06/22/15 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 Specialty Start Date End Date Hector Irenejennifer Biggs [address] [place] [address] PCP - General Family Medicine 06/22/15 Milana Irene [address] [place] [address] Family Medicine 06/22/15 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 Specialty Start Date End Date Milana Irene [address] [place] [address] PCP - General Family Medicine 06/22/15 Milana Irene [address] [facility] [place] [address] Family Medicine 06/22/15 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 [facility] [employer] [facility]. provides no warranty or guarantee of the accuracy or completeness of information in this document.
== END 2023-11-13 19:01 | disposition home or self-care (01) ==
PROVIDERS: Emergency Provider Emergency Medicine; PCP Family Medicine; Visit Provider Emergency Medicine
DX: K29.70 Gastritis, unspecified, without bleeding (principal); E87.6 Hypokalemia; F17.200 Nicotine dependence, unspecified, uncomplicated; G47.30 Sleep apnea, unspecified
CPT/HCPCS: 80053; 83690; 85025; 96361; 96372; 96374; 96375; 99282; J7030; A4216; J2405; J3490

== ENCOUNTER 2023-12-26 13:01 | Emergency (ER) | payer OTHER, SELFPAY ==
[2023-12-26 13:02] VITALS: BP 151/85; PULSE 113; RESP 16; TEMP 36.1; O2SAT 98; BMI 29.4
[2023-12-26 13:28] VITALS: BP 112/54; PULSE 81; RESP 14; O2SAT 99
--- NOTE | 2023-12-26 13:41 | EKG12_ITS ---
Test Reason : CP/ABD PAIN Blood Pressure : / mmHG Vent. Rate : 090 BPM Atrial Rate : 090 BPM P-R Int : 134 ms QRS Dur : 090 ms QT Int : 374 ms P-R-T Axes : 068 067 064 degrees QTc Int : 457 ms Normal sinus rhythm Normal ECG Confirmed by DIOGENES CLEMONS, PUJA ([id number]), movie editor JEANNIE MESA ([id number]) on 12/30/2023 10:30:28 AM Referred By: MARCY/RENA Confirmed By:IMELDA SHETTY MD
--- NOTE | 2023-12-26 13:45 | EDS_ITS ---
HPI <SANTA Banerjee - Last Filed: 12/26/23 17:20> History of Present Illness Chief Complaint: Chest Pain Narrative Narrative: Patient is a 38-year-old female with history anxiety, depression, Crohn's disease. Patient states today, she is here for nausea, vomiting, left-sided chest pain. Patient dates over the last 3 days she has been having continual nausea. Patient has had no appetite, she feels dehydrated. Patient also states has been having chest pain to the left upper abdomen left chest underneath the left breast into her back. Patient denies any fever chills nausea or vomiting. Patient dates she does have some diarrhea however nothing like when she has a Crohn's flareup. She has been trying her medication such as Zofran and Phenergan at home however is not working. She is here for evaluation. She denies any alcohol use, she denies any marijuana use. PFS <SANTA Banerjee - Last Filed: 12/26/23 17:20> [facility] Medical History Anxiety Colitis Crohns disease Depression Stephanie Tobar infection Fatigue Gestational diabetes Left ovarian cyst Sleep apnea Home Medications diphenoxylate-atropine 2.5 mg-0.025 mg tablet (Lomotil) 1 tab PO 4X/DAY PRN PRN diarrhea 5 days #20 tabs 11/22/22 [Rx Last Taken Unknown] promethazine 25 mg tablet 25 mg PO Q6H PRN PRN Nausea #10 TABLETS 02/04/23 [Rx Last Taken Unknown] naproxen 500 mg tablet 500 mg PO Q8H #30 tabs 06/20/23 [Rx Last Taken Unknown] dicyclomine 20 mg tablet 20 mg PO 4X/DAY PRN PRN abdominal pain 11/10/23 [History Last Taken Unknown] oxycodone-acetaminophen 5 mg-325 mg tablet (Percocet) 1 tab PO Q8H PRN pain 3 days #10 tabs 11/10/23 [Rx Last Taken Unknown] sucralfate 100 mg/mL oral suspension (Carafate) 10 ml PO BID PRN abdominal pain #400 mL 11/10/23 [Rx Last Taken Unknown] ondansetron 4 mg disintegrating tablet 4 mg PO Q6H PRN nausea and vomiting #12 tabs 11/13/23 [Rx Last Taken Unknown] alprazolam 1 mg tablet 1 mg PO TID PRN anxiety 11/15/23 [History Last Taken Unknown] cetirizine 10 mg tablet 10 mg PO DAILY PRN allergy symptoms 11/15/23 [History Last Taken Unknown] pantoprazole 40 mg tablet,delayed release 40 mg PO BID 11/15/23 [History Last Taken Unknown] citalopram 40 mg tablet 40 mg PO QHS 12/26/23 [History Last Taken Unknown] oxycodone-acetaminophen 5 mg-325 mg tablet (Percocet) 1 tab PO Q8H PRN pain 3 days #10 tabs 12/26/23 [Rx Last Taken Unknown] pantoprazole 40 mg granules delayed-release for susp in packet (Protonix) 40 mg PO DAILY #30 ea 12/26/23 [Rx Last Taken Unknown] quetiapine 50 mg tablet 50 mg PO QHS 12/26/23 [History Last Taken Unknown] Allergy/AdvReac Type Severity Reaction Status Date / Time nectarine Allergy Angioedema Verified 12/26/23 13:04 metoclopramide [From Reglan] AdvReac headache Verified 12/26/23 13:04 Family History Mother Heart disease Pacemaker Grandfather Diabetes Grandmother Diabetes Surgical History History of colonoscopy (~2017) History of colonoscopy (~2017) History of esophagogastroduodenoscopy (EGD) (~2018) History of wisdom tooth extraction Social History household members: spouse Smoking Status: Light Smoker (<10/day) alcohol intake: never substance use type: does not use caffeine: Yes what type of physical activity do you participate in: walking seatbelt use: always do you feel safe at home: Yes additional social history: [employer] <SANTA Banerjee - Last Filed: 12/26/23 17:20> ROS ED ROS Narrative Constitutional: Negative for fever, chills, weight loss, weakness Eyes: Negative for vision loss, vision change, double vision ENT: Negative for any sore throat, ear pain, congestion Cardiovascular: Negative for any tightness, palpitations. Positive for left- sided epigastric pain, chest pain Respiratory: Negative for any cough, sputum production, hemoptysis, dyspnea, dyspnea on exertion, orthopnea Gastrointestinal: Negative for any abdominal pain, diarrhea, constipation, blood in stool, blood in vomit. Positive nausea vomiting, chest pain : Negative for any urinary frequency, dysuria, retention, blood in urine Muscle skeletal: Negative for any neck pain, back pain Neurological: Negative for any headache, syncope, dizziness Skin: Negative for any rashes, itching, abrasions, lacerations Psychiatric: Negative for any depression, anxiety, stress, suicidal ideation, homicidal ideation Hematologic: Negative for any excessive bruising, easy bleeding EXAM <SANTA Banerjee - Last Filed: 12/26/23 17:20> Physical Exam Narrative Exam Narrative: Vital signs reviewed. Patient is tearful on initial evaluation. Vital signs are stable. HEET: Head normocephalic atraumatic, TMs clear bilaterally. Posterior pharynx is clear, moist mucous membranes. Nares clear bilaterally. Neck: Supple with no lymphadenopathy or tenderness. No signs of meningismus. Cardiac: Regular rate and rhythm no murmurs gallops or rubs, equal peripheral pulses bilaterally. Respiratory: Lungs clear to auscultation bilaterally. No chest tenderness. Abdomen: Soft, nondistended. No abdominal bruit or pulsatile masses. No hepatosplenomegaly. Tenderness to the left upper abdomen Extremities: No peripheral edema, no signs of gross trauma or deformity. Active full range of motion of all extremities. Neuro: Cranial nerves II through XII intact, no focal neurological deficits. Skin: Clean dry and intact with no rash, purpura, petechiae, vesicles or pustules. Backs/flank: No CVA tenderness, no midline spinal tenderness, no deformity. Psych: Normal mood and affect. No SI, HI or acute psychosis. Const Vital Signs: 12/26/23 13:02 12/26/23 13:28 12/26/23 13:30 Temperature 97 F L Temperature Source Temporal Pulse Rate 113 H 81 Respiratory Rate 16 14 Respiratory Effort Normal Non-Labored Blood Pressure 151/85 H 112/54 L Blood Pressure Mean 107 73 Pulse Ox 98 99 Oxygen Delivery Method Room Air Room Air 12/26/23 15:05 12/26/23 17:00 12/26/23 17:26 Temperature 98.1 F 97.9 F Temperature Source Oral Pulse Rate 82 79 85 Respiratory Rate 14 16 18 Respiratory Effort Blood Pressure 121/81 H 129/55 H 125/55 H Blood Pressure Mean 94 79 78 Pulse Ox 98 97 96 Oxygen Delivery Method Room Air Room Air Positive well nourished and well developed General Appearance ED: well developed <Dr. Dylan Mujica DO - Last Filed: 12/26/23 17:33> Physical Exam Const Vital Signs: 12/26/23 13:02 12/26/23 13:28 12/26/23 13:30 Temperature 97 F L Temperature Source Temporal Pulse Rate 113 H 81 Respiratory Rate 16 14 Respiratory Effort Normal Non-Labored Blood Pressure 151/85 H 112/54 L Blood Pressure Mean 107 73 Pulse Ox 98 99 Oxygen Delivery Method Room Air Room Air 12/26/23 15:05 12/26/23 17:00 12/26/23 17:26 Temperature 98.1 F 97.9 F Temperature Source Oral Pulse Rate 82 79 85 Respiratory Rate 14 16 18 Respiratory Effort Blood Pressure 121/81 H 129/55 H 125/55 H Blood Pressure Mean 94 79 78 Pulse Ox 98 97 96 Oxygen Delivery Method Room Air Room Air MDM <SANTA Banerjee - Last Filed: 12/26/23 17:20> [facility] Lab Data Labs: Laboratory Results - last 24 hr 12/26/23 12/26/23 13:30 15:00 WBC 12.1 H RBC 4.60 Hgb 13.1 Hct 39.1 MCV 85.0 MCH 28.5 MCHC 33.5 RDW Std Deviation 40.2 RDW Coeff of Dimitrios 13.1 Plt Count 391 MPV 10.2 Immature Gran % (Auto) 0.400 Neut % (Auto) 66.2 Lymph % (Auto) 25.4 Bowie % (Auto) 6.2 Eos % (Auto) 1.1 Baso % (Auto) 0.7 Absolute Neuts (auto) 8.0 H Absolute Lymphs (auto) 3.07 Nucleated RBC % 0 Sodium 138 Potassium 3.2 L Chloride 108 H Carbon Dioxide 21.0 Anion Gap 9 BUN 13 Creatinine 0.59 Estim Creat Clear Calc 133.05 Est GFR (MDRD) Af Amer 147 Est GFR (MDRD) Non-Af 122 BUN/Creatinine Ratio 21.9 H Glucose 106 Calcium 9.1 Total Bilirubin 0.40 AST 11 L ALT 16 Alkaline Phosphatase 67 Troponin I High Sens < 3 L Total Protein 7.2 Albumin 3.9 Globulin 3.3 Albumin/Globulin Ratio 1.2 Lipase 28 Serum , Qual NEGATIVE Urine Color Yellow Urine Clarity Sl. Cloudy Urine pH 7.0 Ur Specific [place] 1.010 Urine Protein 30 H Urine Glucose (UA) Normal Urine Ketones 50 H Urine Occult Blood 25 H Urine Nitrite Negative Urine Bilirubin Negative Urine Urobilinogen Normal Ur Leukocyte Esterase 500 H Urine RBC 0 SEEN Urine WBC 25-50 SEEN Ur Squamous Epith Cells 5-10 SEEN Urine Bacteria 1+ Urine Mucus 0 SEEN Radiography Diagnostic Testing: Clinical Impression(s) from Imaging Studies Chest X-Ray 12/26/23 14:08 IMPRESSION: Scattered calcified granulomas. Electronically Signed: Leo Ruiz MD at 14:31 EDT , Abdomen/Pelvis CT 12/26/23 16:13 IMPRESSION: Trace pericardial effusion. Electronically Signed: Livan Antonio DO at 17:00 EDT , EKG Normal sinus rhythm: Attestation: I personally reviewed and interpreted this EKG as follows: Interpretation: Sinus Rhythm Comments: Normal sinus rhythm, rate of 90 bpm, GA interval 134 ms, QRS duration 90 ms, no acute ST elevation, no acute infarct noted. Treatment and Re-Evaluation :: Differential diagnosis includes however is not limited to: ACS, CO, pancreatitis, gastritis, ulcer disease, acute on chronic Crohn's Patient appears to be in no obvious respiratory distress vital signs are stable. Patient presents to the emergency with complaints of left upper abdomen pain, left chest pain. Patient will receive a cardiac workup including laboratory values such as CMP, lipase. Patient will receive a CBC, patient given IV fluids, Zofran, morphine. EKG was unremarkable. Patient has no red flag signs. Patient received a two-view chest x-ray. All radiologic examinations were read, reviewed by the emergency department attending. From these reads, a plan of care will be put in place. Patient CBC shows a leukocytosis white blood count 12.1, patient's chemistries show potassium 3.2, kidney function with a 0.59, troponin was negative. Patient's serum was negative, lipase was 28. Grossly unremarkable. Patient's chest x-ray was unremarkable. On reevaluation, the patient states that the nausea was improved however patient still has pain. Patient was redo sed with IV pain medicine. Patient will then be reevaluated Patient's CT scan showed possible trace pericardial effusion, no other acute process. At this time, patient was educated regarding using her PPI, I will write the patient for 40 mg of Protonix, she is unaware whether she takes 20 or 40 however if she does take 20 she will take an extra dose. Patient will also be given a short course of pain medicine. All questions were answered, she is happy with the plan of care, stable for discharge. I have personally performed a face to face assessment of the patient and have reviewed the LISET Note. I performed a substantive portion of the visit including all aspects of the following. My cox findings include: History is 38-year-old female presenting with vomiting diarrhea increase in stool volume. Patient has a history of Crohn's disease and is not on daily medicines for this. She notes pain in the left epigastric left upper quadrant. No reported fevers. Exam is tender to palpation with abdomen still soft. I hear bowel sounds. Patient is in no acute distress. Medical Decison Making basic blood work was obtained and negative. Patient received pain medication. She also received a GI cocktail which did not help. CT of abdomen pelvis will be obtained. Will review the results of this discussed with the patient and possibly discuss with GI if need be. <Dr. Dylan Mujica, DO - Last Filed: 12/26/23 17:33> [facility] History & Record Review Discussion w/independent historian: Patient Lab Data Attestation: I reviewed the patient's lab results. Labs: Laboratory Results - last 24 hr 12/26/23 12/26/23 13:30 15:00 WBC 12.1 H RBC 4.60 Hgb 13.1 Hct 39.1 MCV 85.0 MCH 28.5 MCHC 33.5 RDW Std Deviation 40.2 RDW Coeff of Dimitrios 13.1 Plt Count 391 MPV 10.2 Immature Gran % (Auto) 0.400 Neut % (Auto) 66.2 Lymph % (Auto) 25.4 Bowie % (Auto) 6.2 Eos % (Auto) 1.1 Baso % (Auto) 0.7 Absolute Neuts (auto) 8.0 H Absolute Lymphs (auto) 3.07 Nucleated RBC % 0 Sodium 138 Potassium 3.2 L Chloride 108 H Carbon Dioxide 21.0 Anion Gap 9 BUN 13 Creatinine 0.59 Estim Creat Clear Calc 133.05 Est GFR (MDRD) Af Amer 147 Est GFR (MDRD) Non-Af 122 BUN/Creatinine Ratio 21.9 H Glucose 106 Calcium 9.1 Total Bilirubin 0.40 AST 11 L ALT 16 Alkaline Phosphatase 67 Troponin I High Sens < 3 L Total Protein 7.2 Albumin 3.9 Globulin 3.3 Albumin/Globulin Ratio 1.2 Lipase 28 Serum , Qual NEGATIVE Urine Color Yellow Urine Clarity Sl. Cloudy Urine pH 7.0 Ur Specific [place] 1.010 Urine Protein 30 H Urine Glucose (UA) Normal Urine Ketones 50 H Urine Occult Blood 25 H Urine Nitrite Negative Urine Bilirubin Negative Urine Urobilinogen Normal Ur Leukocyte Esterase 500 H Urine RBC 0 SEEN Urine WBC 25-50 SEEN Ur Squamous Epith Cells 5-10 SEEN Urine Bacteria 1+ Urine Mucus 0 SEEN Radiography Diagnostic Testing: Clinical Impression(s) from Imaging Studies Chest X-Ray 12/26/23 14:08 IMPRESSION: Scattered calcified granulomas. Electronically Signed: Leo Ruiz MD at 14:31 EDT , Abdomen/Pelvis CT 12/26/23 16:13 IMPRESSION: Trace pericardial effusion. Electronically Signed: Livan Antonio DO at 17:00 EDT , Treatment and Re-Evaluation :: Differential diagnosis includes however is not limited to: ACS, CO, pancreatitis, gastritis, ulcer disease, acute on chronic Crohn's Patient appears to be in no obvious respiratory distress vital signs are stable. Patient presents to the emergency with complaints of left upper abdomen pain, left chest pain. Patient will receive a cardiac workup including laboratory values such as CMP, lipase. Patient will receive a CBC, patient given IV fluids, Zofran, morphine. EKG was unremarkable. Patient has no red flag signs. Patient received a two-view chest x-ray. All radiologic examinations were read, reviewed by the emergency department attending. From these reads, a plan of care will be put in place. Patient CBC shows a leukocytosis white blood count 12.1, patient's chemistries show potassium 3.2, kidney function with a 0.59, troponin was negative. Patient's serum was negative, lipase was 28. Grossly unremarkable. Patient's chest x-ray was unremarkable. On reevaluation, the patient states that the nausea was improved however patient still has pain. Patient was redosed with IV pain medicine. Patient will then be reevaluated I have personally performed a face to face assessment of the patient and have reviewed the LISET Note. I performed a substantive portion of the visit including all aspects of the following. My cox findings include: History is 38-year-old female presenting with vomiting diarrhea increase in stool volume. Patient has a history of Crohn's disease and is not on daily medicines for this. She notes pain in the left epigastric left upper quadrant. No reported fevers. Exam is tender to palpation with abdomen still soft. I hear bowel sounds. Patient is in no acute distress. Medical Decison Making basic blood work was obtained and negative. Patient received pain medication. She also received a GI cocktail which did not help. CT of abdomen pelvis will be obtained. Will review the results of this discussed with the patient and possibly discuss with GI if need be. Discharge Plan Triage Chief Complaint: Chest Pain ED Midlevel Provider: Merlin Ely ED Provider: Dylan Mujica Dx/Rx/DC Orders Clinical Impression: Gastritis Instructions: ED Gastritis (Adult) Prescriptions: New pantoprazole [Protonix] [address] for susp in packet 40 mg PO DAILY Qty: 30 0RF oxycodone-acetaminophen [Percocet] 5-325 mg tablet 1 tab PO Q8H PRN (Reason: pain) 3 Days Qty: 10 0RF No Action alprazolam 1 mg tablet 1 mg PO TID PRN (Reason: anxiety) cetirizine 10 mg tablet 10 mg PO DAILY PRN (Reason: allergy symptoms) pantoprazole 40 mg tablet,delayed release (DR/EC) 40 mg PO BID diphenoxylate-atropine [Lomotil] 2.5-0.025 mg tablet 1 tab PO 4X/DAY PRN PRN (Reason: diarrhea) 5 Days Qty: 20 0RF promethazine [promethazine] 25 mg tablet 25 mg PO Q6H PRN PRN (Reason: Nausea) Qty: 10 0RF dicyclomine 20 mg tablet 20 mg PO 4X/DAY PRN PRN (Reason: abdominal pain) oxycodone-acetaminophen [Percocet] 5-325 mg tablet 1 tab PO Q8H PRN (Reason: pain) 3 Days Qty: 10 0RF sucralfate [Carafate] 100 mg/mL suspension 10 ml PO BID PRN (Reason: abdominal pain) Qty: 400 0RF ondansetron 4 mg tablet,disintegrating 4 mg PO Q6H PRN (Reason: nausea and vomiting) Qty: 12 0RF citalopram 40 mg tablet 40 mg PO QHS quetiapine 50 mg tablet 50 mg PO QHS naproxen 500 mg tablet 500 mg PO Q8H Qty: 30 0RF Primary Care Provider: Azael Lr Referrals: Azael Lr MD [Primary Care Provider] - FriendJeremiah DO [Med Staff - Active Staff] - Activity Restrictions/Additional Instructions: You need to follow-up outpatient. Continue taking medication as prescribed. Make sure that you are taking Protonix 40 mg in the morning. Disposition Disposition: Home, Self Care Discharge Date/Time: 12/26/23 17:31
[2023-12-26] MEDS: Ondansetron 4 MG/2 ML Vial IV (13:59)
[2023-12-26] MEDS: Morphine 4 MG/ML Syringe IV (13:59)
[2023-12-26] MEDS: 0.9% Normal Saline (1000mL) 1,000 ML 1000 ML IV (14:00)
[2023-12-26 14:03] LABS: Absolute Lymphocyte Count 3.07 X10^3/uL (0.83-4.51); Basophil# 0.08 X10^3/uL; Basophil% 0.7 % (0-1); Eosinophil# 0.13 X10^3/uL; Eosinophils% 1.1 % (0-5); Hematocrit 39.1 % (37-47); Hemoglobin 13.1 g/dL (12.0-15.0); Lymphocyte # 3.07 X10^3/ul (0.83-4.51); Lymphocyte % 25.4 % (19-41); Mean Corp Hgb Conc 33.5 g/dL (32-36); Mean Corpuscular Hgb 28.5 pg (27.0-32.0); Mean Platelet Vol. 10.2 fl (6.2-12.0); Monocyte# 0.75 X10^3/uL; Monocyte% 6.2 % (0-10); NRBC Flagged by Analyzer 0 % (0-5); Neutrophil # 8.01 X10^3/uL (2.7-7.7); Neutrophil % 66.2 % (47-70); Platelet Count 391 K/mm3 (150-450); RBC Distribution Width CV 13.1 % (11.6-14.6); RBC Distribution Width SD 40.2 fl (35.1-43.9); White Blood Count 12.1 K/mm3 (4.4-11.0)
[2023-12-26] MEDS: Mag Hydrox/Al Hydrox/Simeth 30 ML UDC PO (14:03)
--- NOTE | 2023-12-26 14:06 | ED.RN ---
PT MEDICATED WITH PERMISSION BY MEDIC STUDENT.
--- NOTE | 2023-12-26 14:08 | RAD_ITS ---
STUDY: X-RAY CHEST REASON FOR EXAM: Female, 38 years old. Cough. TECHNIQUE: PA and lateral views of the chest. COMPARISON: Comparison is made with prior study dated March 26, 2023. FINDINGS: The lungs are clear and expanded. Scattered calcified granulomas. There is no demonstrated pleural abnormality. Normal size heart. Normal mediastinum and april. Normal visualized pulmonary arteries. Normal visualized aortic arch and descending thoracic aorta. Normal visualized thoracic spine. Normal visualized ribs, clavicles, and shoulders. There is no demonstrated abnormality of the visualized soft tissue structures of the upper abdomen. RAD/Chest PA and Lateral IMPRESSION: Scattered calcified granulomas. Electronically Signed: Leo Ruiz MD at 14:31 EDT ,
[2023-12-26 14:16] LABS: Internal QC Validated? YES +Cl - CLEAR BKGD; Pregnancy, Serum, hCG Quali. NEGATIVE Negative
[2023-12-26 14:24] LABS: ALB/GLOB Ratio 1.2 RATIO (0.9-2.4); AST(SGOT) 11 U/L (15-37); Alanine Aminotransfer ALT/SGPT 16 U/L (13-56); Albumin, Serum 3.9 g/dL (3.2-5.0); Alkaline Phosphatase 67 U/L (45-117); Anion Gap 9 (5-15); BUN 13 mg/dL (7-18); BUN/Creat Ratio 21.9 RATIO (10-20); Calcium,Total 9.1 mg/dL (8.5-10.1); Chloride 108 mmol/L (98-107); Creatinine, Serum 0.59 mg/dL (0.55-1.02); EST Glomerular Filtration Rate 122 mL/min (>60); Est Glom Filt Rate - Afr Amer 147 mL/min (>60); Estimated Creatinine Clearance 133.05 ml/min; Globulin 3.3 g/dL (2.2-4.2); Glucose 106 mg/dL (74-106); Lipase 28 U/L (13-75); Potassium 3.2 mmol/L (3.5-5.1); Protein, Total 7.2 g/dL (6.4-8.2); Sodium Level 138 mmol/L (136-145); Troponin-I HS < 3 pg/mL (3.0-54.0)
[2023-12-26 15:05] VITALS: BP 121/81; PULSE 82; RESP 14; TEMP 36.7; O2SAT 98
[2023-12-26 15:10] LABS: Mucous, Urine 0 SEEN /hpf (<or=2+); Red Blood Cells-Urine 0 SEEN /hpf (0-5)
[2023-12-26 15:26] LABS: Color, Urine Yellow (Yellow); Glucose, Dipstick Normal (Normal); Ketone-Dipstick 50 mg/dl (Negative); Leukocyte Esterase-Dipstick 500 /ul (Negative); Nitrite-Dipstick Negative (Negative); Occult Blood-Urine 25 /ul (Negative); Protein-Dipstick 30 mg/dl (Negative); Urine Bilirubin Dipstick Negative (Negative); Urine Clarity Sl. Cloudy (Clear); Urine Urobilinogen Normal (Normal)
[2023-12-26] MEDS: HYDROmorphone 1 MG/ML Syringe IV (16:01)
[2023-12-26 16:05] LABS: Squamous Epithelial Cells - UA 5-10 SEEN /hpf (5-10); White Blood Cells 25-50 SEEN /hpf (0-5)
[2023-12-26 16:06] LABS: Bacteria 1+ /hpf (None Seen)
--- NOTE | 2023-12-26 16:13 | CT_ITS ---
STUDY: CT ABDOMEN AND PELVIS WITH CONTRAST REASON FOR EXAM: Female, 38 years old. abdominal pain RADIATION DOSAGE (If Supplied By Facility): CTDIvol = ( 13.81 ) mGy, DLP = ( 869.03 ) mGycm TECHNIQUE: Transaxial images were obtained from the dome of the diaphragm to the symphysis pubis without oral contrast. IV 100mL Isovue-300 was administered. Sagittal and coronal images were reconstructed. Individualized dose optimization techniques were used for this CT. COMPARISON: None. FINDINGS: Left lower lobe calcified granuloma. Trace pericardial effusion. Normal liver. Normal gallbladder and extrahepatic biliary system. Normal spleen. Normal pancreas. Normal bilateral adrenal glands. Normal right kidney. Normal left kidney. Normal visualized stomach. Normal small intestine. Normal colon. The appendix is visualized and appears normal. Normal abdominal aorta. Normal inferior vena cava. Normal retroperitoneum. Normal urinary bladder. Normal abdominal wall. Normal osseous structures. CT/Abdomen/Pelvis W IV Cont ONLY IMPRESSION: Trace pericardial effusion. Electronically Signed: Livan Antonio DO at 17:00 EDT Reading Location ID and State: [facility] / [place] Tel [phone], Service support ,
[2023-12-26 17:00] VITALS: BP 129/55; PULSE 79; RESP 16; O2SAT 97
[2023-12-26 17:26] VITALS: BP 125/55; PULSE 85; RESP 18; TEMP 36.6; O2SAT 96
== END 2023-12-26 17:31 | disposition home or self-care (01) ==
PROVIDERS: Nurse Practitioner; Emergency Provider Emergency Medicine; PCP Family Medicine; Visit Provider Emergency Medicine
DX: K29.70 Gastritis, unspecified, without bleeding (principal); K50.90 Crohn's disease, unspecified, without complications; F17.200 Nicotine dependence, unspecified, uncomplicated; R19.7 Diarrhea, unspecified; F41.9 Anxiety disorder, unspecified; Z79.899 Other long term (current) drug therapy; R07.9 Chest pain, unspecified
CPT/HCPCS: 71046; 74177; 80053; 81001; 83690; 84484; 84703; 85025; 93005; 96361; 96374; 96375; 99284; J7030; Q9967; A4216; J2405

== ENCOUNTER 2024-02-10 17:31 | Emergency (ER) | payer OTHER, SELFPAY ==
[2024-02-10 17:32] VITALS: BP 137/64; PULSE 79; RESP 16; TEMP 36.3; O2SAT 97; BMI 30.4
--- NOTE | 2024-02-10 18:35 | EX.ED.DYSGE1 ---
HPI <KASHIF Rogers - Last Filed: 02/10/24 21:33> History of Present Illness Chief Complaint: Abd Pain Narrative Narrative: Patient presenting today due to pain under her left breast that radiates to her left mid back that she has had for the past few weeks. 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 She reports that she has had 1 episode of nausea and vomiting today with 4 episodes yesterday. She reports diarrhea over the past 3 days. She does have a history of Crohn's disease and states that it is not uncommon for her to have nausea, vomiting, and diarrhea. She denies having chest pain, abdominal pain, shortness of breath, history of blood clots or recent surgery/procedures/travel/immobilization. [facility] <KASHIF Rogers - Last Filed: 02/10/24 21:33> [facility] Medical History Fatigue Left ovarian cyst Stephanie Tobar infection Colitis Sleep apnea Gestational diabetes Crohns disease Depression Anxiety Home Medications ?Medication ?Instructions ?Recorded ?Last Taken ?Type diphenoxylate-atropine 2.5 1 tab PO 4X/DAY PRN PRN diarrhea 5 11/22/22 Unknown Rx mg-0.025 mg tablet (Lomotil) days #20 tabs promethazine 25 mg tablet 25 mg PO Q6H PRN PRN Nausea #10 02/04/23 Unknown Rx TABLETS naproxen 500 mg tablet 500 mg PO Q8H #30 tabs 06/20/23 Unknown Rx dicyclomine 20 mg tablet 20 mg PO 4X/DAY PRN PRN abdominal 11/10/23 Unknown History pain sucralfate 100 mg/mL oral 10 ml PO BID PRN abdominal pain 11/10/23 Unknown Rx suspension (Carafate) #400 mL alprazolam 1 mg tablet 1 mg PO TID PRN anxiety 11/15/23 Unknown History cetirizine 10 mg tablet 10 mg PO DAILY PRN allergy symptoms 11/15/23 Unknown History citalopram 40 mg tablet 20 mg PO QHS 12/26/23 Unknown History pantoprazole 40 mg granules 40 mg PO DAILY #30 ea 12/26/23 Unknown Rx delayed-release for susp in packet (Protonix) gabapentin 300 mg capsule 300 mg PO TID 02/10/24 Unknown History ondansetron 4 mg disintegrating 4 mg PO Q8H PRN PRN Nausea #10 tabs 02/10/24 Unknown Rx tablet Allergy/AdvReac Type Severity Reaction Status Date / Time nectarine Allergy Angioedema Verified 02/10/24 17:34 metoclopramide (From Reglan) AdvReac headache Verified 02/10/24 17:34 Family History Mother Heart disease Pacemaker Grandfather Diabetes Grandmother Diabetes Surgical History History of colonoscopy (~2017) History of esophagogastroduodenoscopy (EGD) (~2018) History of colonoscopy (~2017) History of wisdom tooth extraction Social History household members: spouse Smoking Status: Light Smoker (<10/day) alcohol intake: never substance use type: does not use caffeine: Yes what type of physical activity do you participate in: walking seatbelt use: always do you feel safe at home: Yes additional social history: [employer] ROS <KASHIF Rogers - Last Filed: 02/10/24 21:33> ROS ED Constitutional Constitutional ED: Denies chills or fever(s) Cardiovascular Cardiovascular: Denies chest pain or palpitations Respiratory/Chest Respiratory/Chest: Denies cough or dyspnea Gastrointestinal Gastrointestinal: Reports diarrhea, nausea and vomiting; Denies abdominal pain or melena Genitourinary Genitourinary ED: Denies dysuria or urinary urgency Musculoskeletal Musculoskeletal: Reports back pain Integumentary Denies rash Neurologic Neurologic: Denies weakness EXAM <KASHIF Rogers - Last Filed: 02/10/24 21:33> Physical Exam Const Vital Signs: 02/10/24 17:32 02/10/24 20:14 Temperature 97.4 F L Temperature Source Temporal Pulse Rate 79 63 Respiratory Rate 16 16 Blood Pressure 137/64 H 128/66 H Blood Pressure Mean 88 86 Pulse Ox 97 99 Oxygen Delivery Method Room Air Positive well nourished, well developed and no apparent distress General Appearance ED: well developed HEENT Reports normocephalic and head/scalp atraumatic Mouth ED: Yes moist mucous membranes normal Eyes PERRL and EOMs intact bilaterally Neck full ROM and supple Chest Wall inspection of chest normal Chest Narrative: Pain to palpation to the left lateral rib cage and below the left breast Resp normal respiratory effort and clear to auscultation bilaterally Cardio regular rate and regular rhythm GI soft to palpation, non-tender, non-distended and no masses Back/Spine normal ROM and normal to inspection Back/Spine Narrative: Left thoracic paraspinal tenderness to palpation, no midline spinal tenderness. Extremity normal to inspection and full ROM Neuro oriented x3, CN's II-XII intact bilaterally, moves all extremities, no focal motor deficits and no sensory deficits noted Sensorium / Orientation: awake and alert Psych mental status grossly normal and thought process normal Skin no rashes or lesions noted and no wounds <Dr. Camilo Lux DO - Last Filed: 02/10/24 21:53> Physical Exam Const Vital Signs: 02/10/24 17:32 02/10/24 20:14 Temperature 97.4 F L Temperature Source Temporal Pulse Rate 79 63 Respiratory Rate 16 16 Blood Pressure 137/64 H 128/66 H Blood Pressure Mean 88 86 Pulse Ox 97 99 Oxygen Delivery Method Room Air MDM <KASHIF Rogers - Last Filed: 02/10/24 21:33> [facility] Narrative Medical decision making narrative: Patient presenting today due to pain below her left breast that radiates to her back. This is reproducible on exam, she has tenderness to palpation below her left breast, to her left lateral rib cage, into her left thoracic paraspinal muscles. She is able to reproduce her pain by bending over. She does report a history of Crohn's and has had nausea and vomiting over the past few days which she reports is not abnormal for her, she had 1 episode of vomiting today. She has been having loose stools over the past 3 days. Labs were obtained, CBC is unremarkable. She has a potassium of 3.3 and was given potassium replacement. UA negative for UTI. She was given analgesia. D-dimer obtained to rule out PE and is mildly elevated at 0.85, CTA obtained and is negative. On reexamination she does report improvement of her symptoms, she is tolerating a p.o. challenge. She can take Tylenol for her pain as I feel this is consistent with costochondritis. She will be discharged home in stable condition. Lab Data Attestation: I reviewed the patient's lab results. Labs: Laboratory Results - last 24 hr 02/10/24 02/10/24 02/10/24 19:08 19:25 19:41 WBC 10.9 RBC 4.34 Hgb 12.2 Hct 36.5 L MCV 84.1 MCH 28.1 MCHC 33.4 RDW Std Deviation 43.0 RDW Coeff of Dimitrios 13.8 Plt Count 396 MPV 9.7 Immature Gran % (Auto) 0.300 Neut % (Auto) 52.4 Lymph % (Auto) 37.0 [place] % (Auto) 7.0 Eos % (Auto) 2.5 Baso % (Auto) 0.8 Absolute Neuts (auto) 5.7 Absolute Lymphs (auto) 4.05 Nucleated RBC % 0 D-Dimer Quant (PE/DVT) 0.85 H* Sodium 139 Potassium 3.3 L Chloride 112 H Carbon Dioxide 20.0 L Anion Gap 7 BUN 13 Creatinine 0.64 Estim Creat Clear Calc 124.57 Est GFR (MDRD) Af Amer 135 Est GFR (MDRD) Non-Af 112 BUN/Creatinine Ratio 20.3 H Glucose 94 Calcium 9.0 Urine Color Yellow Urine Clarity Clear Urine pH 6.5 Ur Specific Olga 1.010 Urine Protein Negative Urine Glucose (UA) Normal Urine Ketones Negative Urine Occult Blood 25 H Urine Nitrite Negative Urine Bilirubin Negative Urine Urobilinogen Normal Ur Leukocyte Esterase Negative Urine RBC 0-5 SEEN Urine WBC 0 SEEN Ur Squamous Epith Cells 0-5 SEEN Urine Bacteria 0 SEEN Urine Mucus 0 SEEN Urine Test Negative Radiography Diagnostic Testing: Clinical Impression(s) from Imaging Studies Chest CTA 02/10/24 20:10 IMPRESSION: No demonstrated PE, or thoracic aortic aneurysm or dissection No acute pulmonary process No suspicious adenopathy Electronically Signed: Bassam Elise MD at 20:54 EDT , <Dr. Camilo Lux, DO - Last Filed: 02/10/24 21:53> [facility] MDM Narrative Medical decision making narrative: Patient presenting today due to pain below her left breast that radiates to her back. This is reproducible on exam, she has tenderness to palpation below her left breast, to her left lateral rib cage, into her left thoracic paraspinal muscles. She is able to reproduce her pain by bending over. She does report a history of Crohn's and has had nausea and vomiting over the past few days which she reports is not abnormal for her, she had 1 episode of vomiting today. She has been having loose stools over the past 3 days. Labs were obtained, CBC is unremarkable. She has a potassium of 3.3 and was given potassium replacement. UA negative for UTI. She was given analgesia. D-dimer obtained to rule out PE and is mildly elevated at 0.85, CTA obtained and is negative. On reexamination she does report improvement of her symptoms, she is tolerating a p.o. challenge. She can take Tylenol for her pain as I feel this is consistent with costochondritis. She will be discharged home in stable condition. 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 I perform my own [id number] evaluation. I agree with the plan of work-up. Nontraumatic left rib pain for the last 2 weeks. Pain with deep breaths. No cough. History of Crohn disease no immunosuppressants. No abdominal surgeries. Yesterday started having vomiting total 4 episodes no hematemesis. Couple of loose stools nonbloody. She has been tolerating oral fluids. Reports recently saw dermatology 2 weeks ago due to hidradenitis suppurativa. She is placed on doxycycline along with hormone pill. She does admit to smoking. No history of PE or DVT. With her vomiting diarrhea should basic labs, D-dimer is added low risk Wells criteria for PE. This returned elevated. CT of the chest obtained negative for any acute process labs stable slight hypokalemia. She is able to tolerate oral fluids and p.o. intake. Discussed with patient to use Tylenol as needed with outpatient follow-up. Lab Data Labs: Laboratory Results - last 24 hr 02/10/24 02/10/24 02/10/24 19:08 19:25 19:41 WBC 10.9 RBC 4.34 Hgb 12.2 Hct 36.5 L MCV 84.1 MCH 28.1 MCHC 33.4 RDW Std Deviation 43.0 RDW Coeff of Dimitrios 13.8 Plt Count 396 MPV 9.7 Immature Gran % (Auto) 0.300 Neut % (Auto) 52.4 Lymph % (Auto) 37.0 [place] % (Auto) 7.0 Eos % (Auto) 2.5 Baso % (Auto) 0.8 Absolute Neuts (auto) 5.7 Absolute Lymphs (auto) 4.05 Nucleated RBC % 0 D-Dimer Quant (PE/DVT) 0.85 H* Sodium 139 Potassium 3.3 L Chloride 112 H Carbon Dioxide 20.0 L Anion Gap 7 BUN 13 Creatinine 0.64 Estim Creat Clear Calc 124.57 Est GFR (MDRD) Af Amer 135 Est GFR (MDRD) Non-Af 112 BUN/Creatinine Ratio 20.3 H Glucose 94 Calcium 9.0 Urine Color Yellow Urine Clarity Clear Urine pH 6.5 Ur Specific Olga 1.010 Urine Protein Negative Urine Glucose (UA) Normal Urine Ketones Negative Urine Occult Blood 25 H Urine Nitrite Negative Urine Bilirubin Negative Urine Urobilinogen Normal Ur Leukocyte Esterase Negative Urine RBC 0-5 SEEN Urine WBC 0 SEEN Ur Squamous Epith Cells 0-5 SEEN Urine Bacteria 0 SEEN Urine Mucus 0 SEEN Urine Test Negative Radiography Diagnostic Testing: Clinical Impression(s) from Imaging Studies Chest CTA 02/10/24 20:10 IMPRESSION: No demonstrated PE, or thoracic aortic aneurysm or dissection No acute pulmonary process No suspicious adenopathy Electronically Signed: Bassam Elise MD at 20:54 EDT Reading Location ID and State: [address] [place] [address] , Service support , Discharge Plan Triage Chief Complaint: Abd Pain ED Midlevel Provider: Patrica Woodruff ED Provider: Camilo Lux Dx/Rx/DC Orders Clinical Impression: Crohn's disease, Acute costochondritis, Nausea & vomiting, Diarrhea, Hypokalemia Instructions: Costochondritis, ED Vomiting (Adult) Prescriptions: New ondansetron 4 mg tablet,disintegrating 4 mg PO Q8H PRN PRN (Reason: Nausea) Qty: 10 0RF No Action alprazolam 1 mg tablet 1 mg PO TID PRN (Reason: anxiety) cetirizine 10 mg tablet 10 mg PO DAILY PRN (Reason: allergy symptoms) diphenoxylate-atropine [Lomotil] 2.5-0.025 mg tablet 1 tab PO 4X/DAY PRN PRN (Reason: diarrhea) 5 Days Qty: 20 0RF promethazine [promethazine] 25 mg tablet 25 mg PO Q6H PRN PRN (Reason: Nausea) Qty: 10 0RF dicyclomine 20 mg tablet 20 mg PO 4X/DAY PRN PRN (Reason: abdominal pain) sucralfate [Carafate] 100 mg/mL suspension 10 ml PO BID PRN (Reason: abdominal pain) Qty: 400 0RF citalopram 40 mg tablet 20 mg PO QHS pantoprazole [Protonix] [address] for susp in packet 40 mg PO DAILY Qty: 30 0RF gabapentin 300 mg capsule 300 mg PO TID naproxen 500 mg tablet 500 mg PO Q8H Qty: 30 0RF Primary Care Provider: Azael Lr Referrals: Azael Lr MD [Primary Care Provider] - 5-7 Days Activity Restrictions/Additional Instructions: You had a CTA of the chest that was negative. Your labs stable except for slight hypokalemia. Continue oral fluids for hydration. Follow-up with your PCP and return for any worsening of your symptoms. You can take Tylenol as needed for pain. Print Language: Persian Disposition Disposition: Home, Self Care
[2024-02-10] MEDS: Ketorolac 15 MG/ML Vial IV (19:04)
[2024-02-10 19:14] LABS: Bacteria 0 SEEN /hpf (None Seen); Color, Urine Yellow (Yellow); Glucose, Dipstick Normal (Normal); Ketone-Dipstick Negative (Negative); Leukocyte Esterase-Dipstick Negative /ul (Negative); Mucous, Urine 0 SEEN /hpf (<or=2+); Nitrite-Dipstick Negative (Negative); Occult Blood-Urine 25 /ul (Negative); Protein-Dipstick Negative (Negative); Urine Bilirubin Dipstick Negative (Negative); Urine Clarity Clear (Clear); Urine Urobilinogen Normal (Normal); Urine pH 6.5 (5.0 - 8.0); White Blood Cells 0 SEEN /hpf (0-5)
[2024-02-10 19:15] LABS: Absolute Lymphocyte Count 4.05 X10^3/uL (0.83-4.51); Absolute Neutrophil Count 5.7 X10^3/uL (2.0-7.7); Basophil# 0.09 X10^3/uL; Basophil% 0.8 % (0-1); Eosinophil# 0.27 X10^3/uL; Eosinophils% 2.5 % (0-5); Hematocrit 36.5 % (37-47); Hemoglobin 12.2 g/dL (12.0-15.0); Lymphocyte # 4.05 X10^3/ul (0.83-4.51); Mean Corp Hgb Conc 33.4 g/dL (32-36); Mean Corpuscular Hgb 28.1 pg (27.0-32.0); Mean Corpuscular Volume 84.1 fL (81-99); Mean Platelet Vol. 9.7 fl (6.2-12.0); Monocyte# 0.77 X10^3/uL; NRBC Flagged by Analyzer 0 % (0-5); Neutrophil # 5.73 X10^3/uL (2.7-7.7); Neutrophil % 52.4 % (47-70); Platelet Count 396 K/mm3 (150-450); RBC Distribution Width CV 13.8 % (11.6-14.6); Red Blood Count 4.34 M/mm3 (4.2-5.4); White Blood Count 10.9 K/mm3 (4.4-11.0)
[2024-02-10 19:27] LABS: Anion Gap 7 (5-15); BUN 13 mg/dL (7-18); BUN/Creat Ratio 20.3 RATIO (10-20); Chloride 112 mmol/L (98-107); Creatinine, Serum 0.64 mg/dL (0.55-1.02); EST Glomerular Filtration Rate 112 mL/min (>60); Est Glom Filt Rate - Afr Amer 135 mL/min (>60); Estimated Creatinine Clearance 124.57 ml/min; Glucose 94 mg/dL (74-106); Potassium 3.3 mmol/L (3.5-5.1); Sodium Level 139 mmol/L (136-145)
[2024-02-10] MEDS: Morphine 4 MG/ML Syringe IV (19:53)
[2024-02-10] MEDS: Ondansetron 4 MG/2 ML Vial IV (19:53)
[2024-02-10 19:56] LABS: Red Blood Cells-Urine 0-5 SEEN /hpf (0-5); Squamous Epithelial Cells - UA 0-5 SEEN /hpf (5-10)
[2024-02-10 19:57] LABS: Internal QC Validated? YES +Cl - CLEAR BKGD; Pregnancy, Urine Negative Negative
[2024-02-10 20:05] LABS: D-Dimer Quantitative (DVT/PE) 0.85 FEU/ug/m (0.27-0.49)
--- NOTE | 2024-02-10 20:10 | CT_ITS ---
STUDY: CTA CHEST REASON FOR EXAM: Female, 38 years old. Atypical chest pain, elevated d-dimer RADIATION DOSAGE (If Supplied By Facility): CTDIvol = ( 9.16 ) mGy, DLP = ( 392.35 ) mGycm TECHNIQUE: The examination was performed with the intravenous administration of IV 100mL Isovue-370. Post-processing of the angiographic images was performed, with multiplanar reformation and 3D reconstruction. Individualized dose optimization techniques were used for this CT. COMPARISON: None. FINDINGS: Normal enhancement of the main pulmonary artery and right and left pulmonary arteries. Normal enhancement of the bilateral peripheral pulmonary arteries. There is no demonstrated pulmonary embolism. Normal thoracic aorta and visualized great vessels. There is no demonstrated aortic dissection. Normal heart and pericardium. Normal mediastinum. Normal hilar regions. Normal visualized trachea and bronchi. The lungs are well expanded. Normal pulmonary parenchyma. Normal pleura. Normal chest wall structures. Normal osseous structures. Normal visualized upper abdomen. CT/CTA Chest W/WO Contrast IMPRESSION: No demonstrated PE, or thoracic aortic aneurysm or dissection No acute pulmonary process No suspicious adenopathy Electronically Signed: Bassam Elise MD at 20:54 EDT ,
[2024-02-10 20:14] VITALS: BP 128/66; PULSE 63; RESP 16; O2SAT 99
[2024-02-10] MEDS: Potassium Chloride Oral Tablet 20 MEQ PO (21:38)
[2024-02-10] MEDS: HYDROcodone Bitartrate/Apap 5/325 Tablet PO (21:38)
[2024-02-10 22:09] VITALS: BP 123/74; PULSE 75; RESP 16; TEMP 36.8; O2SAT 97
== END 2024-02-10 22:13 | disposition home or self-care (01) ==
PROVIDERS: Physician Assistant; Emergency Provider Emergency Medicine; PCP Family Medicine; Visit Provider Emergency Medicine
DX: K50.90 Crohn's disease, unspecified, without complications (principal); F17.200 Nicotine dependence, unspecified, uncomplicated; M54.9 Dorsalgia, unspecified; M94.0 Chondrocostal junction syndrome [Tietze]; N64.4 Mastodynia; E87.6 Hypokalemia
CPT/HCPCS: 71275; 80048; 81001; 81025; 85025; 85379; 96374; 96375; 99284; Q9967; A4216; J2405

== ENCOUNTER → 2024-06-02 | Outpatient (CLI) | payer OTHER, SELFPAY ==
[2024-06-02 12:18] LABS: Absolute Neutrophil Count 6.8 X10^3/uL (2.0-7.7); Basophil# 0.09 X10^3/uL; Basophil% 0.8 % (0-1); Eosinophil# 0.18 X10^3/uL; Eosinophils% 1.6 % (0-5); Hematocrit 41.7 % (37-47); Hemoglobin 13.7 g/dL (12.0-15.0); Mean Corp Hgb Conc 32.9 g/dL (32-36); Mean Corpuscular Hgb 28.7 pg (27.0-32.0); Mean Corpuscular Volume 87.2 fL (81-99); Mean Platelet Vol. 10.4 fl (6.2-12.0); Monocyte# 0.59 X10^3/uL; Monocyte% 5.2 % (0-10); NRBC Flagged by Analyzer 0 % (0-5); Neutrophil # 6.75 X10^3/uL (2.7-7.7); Platelet Count 439 K/mm3 (150-450); Red Blood Count 4.78 M/mm3 (4.2-5.4); White Blood Count 11.3 K/mm3 (4.4-11.0)
[2024-06-02 12:20] LABS: Erythrocyte Sedimentation Rate 19 mm/hr (0-30)
[2024-06-02 12:52] LABS: ALB/GLOB Ratio 1.2 RATIO (0.9-2.4); AST(SGOT) 11 U/L (15-37); Alanine Aminotransfer ALT/SGPT 21 U/L (13-56); Albumin, Serum 4.2 g/dL (3.2-5.0); Alkaline Phosphatase 72 U/L (45-117); Anion Gap 6 (5-15); BUN 9 mg/dL (7-18); BUN/Creat Ratio 15.5 RATIO (10-20); Calcium,Total 9.6 mg/dL (8.5-10.1); Chloride 111 mmol/L (98-107); Creatinine, Serum 0.58 mg/dL (0.55-1.02); EST Glomerular Filtration Rate 125 mL/min (>60); Est Glom Filt Rate - Afr Amer 151 mL/min (>60); Globulin 3.6 g/dL (2.2-4.2); Glucose 93 mg/dL (74-106); LDH 157 U/L (84-246); Protein, Total 7.8 g/dL (6.4-8.2); Sodium Level 139 mmol/L (136-145); T4 Free Direct 0.98 ng/dL (0.76-1.46)
[2024-06-05 00:07] LABS: Anti-Centromere B Ab <0.2 AI (0.0-0.9); Anti-Chromatin <0.2 AI (0.0-0.9); Anti-Jo <0.2 AI (0.0-0.9); Anti-Scleroderma-70 AB <0.2 AI (0.0-0.9); Anti-dsDNA Ab 1 IU/mL (0-9); Beef <0.10 kU/L (Class 0); Chocolate <0.10 kU/L (Class 0); Codfish <0.10 kU/L (Class 0); Corn <0.10 kU/L (Class 0); Egg, Whole <0.10 kU/L (Class 0); Milk (Cow) <0.10 kU/L (Class 0); Mussels <0.10 kU/L (Class 0); Peanut <0.10 kU/L (Class 0); Pork <0.10 kU/L (Class 0); RNP Ab 0.2 AI (0.0-0.9); SJOGREN'S Anti-SS-A test < 0.2 AI (0.0-0.9); SJOGREN'S Anti-SS-B test < 0.2 AI (0.0-0.9); Salmon <0.10 kU/L (Class 0); Shrimp <0.10 kU/L (Class 0); Smith Ab <0.2 AI (0.0-0.9); Soybean <0.10 kU/L (Class 0); Tuna <0.10 kU/L (Class 0); Wheat <0.10 kU/L (Class 0)
[2024-06-05 06:10] LABS: ACCA 9 units (0-90); ALCA 8 units (0-60); AMCA 15 units (0-100); Alpha-1-Globulins 0.4 g/dL (0.0-0.4); Cytoplasmic Ab (C-ANCA) <1:20 titer (Neg:<1:20); Endomysial Antibody IgA Negative (Negative); Gamma Globulin 0.7 g/dL (0.4-1.8); Immunoglobulin A 154 mg/dL (87-352); Immunoglobulin E 11 IU/mL (6-495); Immunoglobulin G 657 mg/dL (586-1602); Immunoglobulin M 112 mg/dL (26-217); PROEL- TOTAL PROTEIN 7.2 g/dL (6.0-8.5); Perinuclear Ab (P-ANCA) <1:20 titer (Neg:<1:20); gASCA 4 units (0-50); t-Transglutaminase IgA <2 U/mL (0-3)
== END | disposition home or self-care (01) ==
LOC: LAB 10:09
PROVIDERS: PCP Family Medicine
DX: K50.90 Crohn's disease, unspecified, without complications (principal)
CPT/HCPCS: 36415; 80053; 82784; 82785; 83516; 83615; 84165; 84439; 84443; 84481; 85025; 85652; 86003; 86005; 86036; 86037; 86140; 86225; 86235; 86255; 86334; 86671

== ENCOUNTER 2024-06-07 10:37 | Emergency (ER) | payer OTHER, SELFPAY ==
[2024-06-07 10:39] VITALS: BP 123/70; PULSE 82; RESP 14; TEMP 36.3; O2SAT 99; BMI 28.6
--- NOTE | 2024-06-07 11:24 | RAD_ITS ---
HISTORY: chest pain. TECHNIQUE: XR Chest 2 Views. COMPARISON: 12/26/2023. FINDINGS: CARDIOMEDIASTINAL BORDERS: Cardiac silhouette within normal limits in size. Mediastinal contour unremarkable. Small calcified left hilar lymph nodes. LUNGS: Chronic small calcified left lower lobe granuloma. PLEURA: No pleural effusion or pneumothorax seen. OSSEOUS STRUCTURES: Unremarkable. RAD/Chest PA and Lateral IMPRESSION: No acute cardiopulmonary process identified. Electronically Signed: Janet Knowles MD at 12:56 EDT ,
--- NOTE | 2024-06-07 11:30 | ED.VIS.GI ---
HPI <KASHIF Rogers - Last Filed: 06/07/24 14:34> HPI - GI History of Present Illness Chief Complaint: Abd Pain Narrative Narrative: Patient presenting today with pain to her left lateral rib cage that she has had since January. Her pain is worse with movements of her torso. She was diagnosed with costochondritis in the past. She also has a history of Crohn's disease and recently established with Dr. Alva, she is scheduled to have a endoscopy, colonoscopy, and camera study performed in July. She reports that she has had nausea, vomiting, and increased loose stools since Saturday. She also endorses epigastric abdominal pain. She denies any history of abdominal surgery. She denies recent antibiotic use, fevers, chills, hematemesis, melena, hematochezia, and urinary symptoms. She denies history of marijuana use. [facility] <KASHIF Rogers - Last Filed: 06/07/24 14:34> [facility] Medical History Groin abscess Fatigue Left ovarian cyst Stephanie Tobar infection Colitis Sleep apnea Gestational diabetes Crohns disease Depression Anxiety Home Medications ?Medication ?Instructions ?Recorded ?Last Taken ?Type diphenoxylate-atropine 2.5 1 tab PO 4X/DAY PRN PRN diarrhea 5 11/22/22 Unknown Rx mg-0.025 mg tablet (Lomotil) days #20 tabs promethazine 25 mg tablet 25 mg PO Q6H PRN PRN Nausea #10 02/04/23 Unknown Rx TABLETS naproxen 500 mg tablet 500 mg PO Q8H #30 tabs 06/20/23 Unknown Rx dicyclomine 20 mg tablet 20 mg PO 4X/DAY PRN PRN abdominal 11/10/23 Unknown History pain sucralfate 100 mg/mL oral 10 ml PO BID PRN abdominal pain 11/10/23 Unknown Rx suspension (Carafate) #400 mL alprazolam 1 mg tablet 1 mg PO TID PRN anxiety 11/15/23 Unknown History cetirizine 10 mg tablet 10 mg PO DAILY PRN allergy symptoms 11/15/23 Unknown History citalopram 40 mg tablet 20 mg PO QHS 12/26/23 Unknown History pantoprazole 40 mg granules 40 mg PO DAILY #30 ea 12/26/23 Unknown Rx delayed-release for susp in packet (Protonix) gabapentin 300 mg capsule 300 mg PO TID 02/10/24 Unknown History ondansetron 4 mg disintegrating 4 mg PO Q8H PRN PRN Nausea #10 tabs 02/10/24 Unknown Rx tablet folic acid 1 mg tablet 1 mg PO QDAY #30 tabs 06/02/24 Unknown Rx sucralfate 1 gram tablet 1 g PO QACHS #120 tabs 06/02/24 Unknown Rx sulfasalazine 500 mg 0.5 g PO BID #60 tabs 06/02/24 Unknown Rx tablet,delayed release Allergy/AdvReac Type Severity Reaction Status Date / Time nectarine Allergy Angioedema Verified 06/07/24 10:38 metoclopramide (From Reglan) AdvReac headache Verified 06/07/24 10:38 Family History Mother Heart disease Pacemaker Grandfather Diabetes Grandmother Diabetes Surgical History History of colonoscopy (~2017) History of esophagogastroduodenoscopy (EGD) (~2018) History of colonoscopy (~2017) History of wisdom tooth extraction Social History household members: spouse Smoking Status: Light Smoker (<10/day) alcohol intake: never substance use type: does not use caffeine: Yes what type of physical activity do you participate in: walking seatbelt use: always do you feel safe at home: Yes additional social history: [employer] <KASHIF Rogers - Last Filed: 06/07/24 14:34> ROS ED Constitutional Constitutional ED: Denies chills or fever(s) Cardiovascular Cardiovascular: Denies chest pain Respiratory/Chest Respiratory/Chest: Denies cough or dyspnea Gastrointestinal Gastrointestinal: Reports abdominal pain, diarrhea, nausea and vomiting; Denies constipation or melena Genitourinary Genitourinary ED: Denies dysuria, hematuria or urinary urgency Musculoskeletal Musculoskeletal: Denies arthralgias or myalgias Integumentary Denies rash Neurologic Neurologic: Denies weakness EXAM <KASHIF Rogers - Last Filed: 06/07/24 14:34> Physical Exam Const Vital Signs: 06/07/24 10:39 Temperature 97.3 F L Temperature Source Temporal Pulse Rate 82 Respiratory Rate 14 Blood Pressure 123/70 H Blood Pressure Mean 87 Pulse Ox 99 Oxygen Delivery Method Room Air Positive well nourished, well developed and no apparent distress General Appearance ED: well developed HEENT Reports normocephalic and head/scalp atraumatic Mouth ED: Yes moist mucous membranes normal Eyes PERRL and EOMs intact bilaterally Neck full ROM and supple Chest Wall inspection of chest normal Chest Narrative: Pain to palpation to the left lateral rib cage. No overlying bruising, no crepitus. Resp normal respiratory effort and clear to auscultation bilaterally Cardio regular rate and regular rhythm GI soft to palpation, non-distended and no masses GI Narrative: Minimal epigastric tenderness to palpation, negative McBurney's point tenderness, no tenderness to the right upper quadrant. No rigidity or guarding. Palpation: Negative for hepatomegaly or splenomegaly Back/Spine normal ROM and normal to inspection Extremity normal to inspection and full ROM Neuro oriented x3, CN's II-XII intact bilaterally, moves all extremities, no focal motor deficits and no sensory deficits noted Sensorium / Orientation: awake and alert Psych mental status grossly normal and thought process normal Skin no rashes or lesions noted and no wounds <Rad Wilkerson MD - Last Filed: 06/07/24 19:14> Physical Exam Const Vital Signs: 06/07/24 10:39 Temperature 97.3 F L Temperature Source Temporal Pulse Rate 82 Respiratory Rate 14 Blood Pressure 123/70 H Blood Pressure Mean 87 Pulse Ox 99 Oxygen Delivery Method Room Air [facility] <KASHIF Rogers - Last Filed: 06/07/24 14:34> [facility] Narrative Medical decision making narrative: Patient presenting today with pain to her left lateral rib cage that she has had daily since January. She was seen here in January, CTA of the chest was performed and was negative for PE. She was ultimately diagnosed with costochondritis. She has not followed up with her PCP for this. She reports that her pain has not changed since then, it has just not gone away. She also has a history of Crohn's disease and has been having nausea, vomiting, epigastric abdominal pain, and increased loose stools since Saturday. She established with Dr. Alva on Saturday who is going to be performing an upper and lower scope as well as a camera study in July. She was started on Carafate. On exam, she is nontoxic-appearing, her vitals are unremarkable. Labs will be obtained as well as a chest x-ray. She has a nonsurgical abdomen, I do not feel that any abdominal imaging is indicated at this time. Her WBC is 11.4, this is essentially unchanged from her previous labs last week. CMP and lipase are unremarkable, UA negative for UTI. Chest x-ray negative for any acute cardiopulmonary abnormality. Patient was given IV Zofran and Toradol. She did begin to have a panic attack, she takes alprazolam at home for her anxiety and was given dose of Ativan here. She was requesting additional pain medication, I did explain that I did not feel that narcotics was indicated at this time, she did become upset and requested to leave from the emergency department. I did offer to write her a prescription for anti-inflammatories for her costochondritis, she declined. I did put patient up for discharge but she did elope with the IV in her arm prior to receiving her discharge instructions. The nurse was able to call her and she did return to the ED to have the IV removed. Lab Data Attestation: I reviewed the patient's lab results. Labs: Laboratory Results - last 24 hr 06/07/24 06/07/24 11:45 13:05 WBC 11.4 H RBC 4.40 Hgb 12.6 Hct 38.7 MCV 88.0 MCH 28.6 MCHC 32.6 RDW Std Deviation 45.0 H RDW Coeff of Dimitrios 13.9 Plt Count 384 MPV 10.1 Immature Gran % (Auto) 1.700 H Neut % (Auto) 54.9 Lymph % (Auto) 33.8 [place] % (Auto) 7.2 Eos % (Auto) 1.6 Baso % (Auto) 0.8 Absolute Neuts (auto) 6.3 Absolute Lymphs (auto) 3.86 Nucleated RBC % 0 Sodium 139 Potassium 3.8 Chloride 112 H Carbon Dioxide 23.0 Anion Gap 4 L BUN 13 Creatinine 0.52 L Estim Creat Clear Calc 148.99 Est GFR (MDRD) Af Amer 172 Est GFR (MDRD) Non-Af 142 BUN/Creatinine Ratio 25.1 H Glucose 96 Calcium 8.9 Total Bilirubin 0.20 AST 8 L ALT 15 Alkaline Phosphatase 64 Total Protein 6.8 Albumin 3.7 Globulin 3.1 Albumin/Globulin Ratio 1.2 Lipase 34 Serum , Qual NEGATIVE Urine Color Yellow Urine Clarity Clear Urine pH 7.0 Ur Specific [place] 1.005 Urine Protein Negative Urine Glucose (UA) Normal Urine Ketones Negative Urine Occult Blood 10 H Urine Nitrite Negative Urine Bilirubin Negative Urine Urobilinogen Normal Ur Leukocyte Esterase Negative Urine RBC 0 SEEN Urine WBC 0 SEEN Ur Squamous Epith Cells 0-5 SEEN Urine Bacteria 0 SEEN Urine Mucus 0 SEEN Radiography X-Ray: Read by ED Physician Diagnostic Testing: Clinical Impression(s) from Imaging Studies Chest X-Ray 06/07/24 11:24 IMPRESSION: No acute cardiopulmonary process identified. Electronically Signed: Janet Knowles MD at 12:56 EDT , <Rad Wilkerson MD - Last Filed: 06/07/24 19:14> [facility] MDM Narrative Medical decision making narrative: Patient presenting today with pain to her left lateral rib cage that she has had daily since January. She was seen here in January, CTA of the chest was performed and was negative for PE. She was ultimately diagnosed with costochondritis. She has not followed up with her PCP for this. She reports that her pain has not changed since then, it has just not gone away. She also has a history of Crohn's disease and has been having nausea, vomiting, epigastric abdominal pain, and increased loose stools since Saturday. She established with Dr. Alva on Saturday who is going to be performing an upper and lower scope as well as a camera study in July. She was started on Carafate. On exam, she is nontoxic-appearing, her vitals are unremarkable. Labs will be obtained as well as a chest x-ray. She has a nonsurgical abdomen, I do not feel that any abdominal imaging is indicated at this time. Her WBC is 11.4, this is essentially unchanged from her previous labs last week. CMP and lipase are unremarkable, UA negative for UTI. Chest x-ray negative for any acute cardiopulmonary abnormality. Patient was given IV Zofran and Toradol. She did begin to have a panic attack, she takes alprazolam at home for her anxiety and was given dose of Ativan here. She was requesting additional pain medication, I did explain that I did not feel that narcotics was indicated at this time, she did become upset and requested to leave from the emergency department. I did offer to write her a prescription for anti-inflammatories for her costochondritis, she declined. I did put patient up for discharge but she did elope with the IV in her arm prior to receiving her discharge instructions. The nurse was able to call her and she did return to the ED to have the IV removed. Dr. Wilkerson: I have personally performed a face to face assessment of the patient and have reviewed the LISET Note. I performed a substantive portion of the visit including all aspects of the following. My cox findings include: History is left upper quadrant abdominal pain, has been seen in the emergency department previously for this. Ongoing times month. History of Crohn disease, follows up with gastroenterology Dr. Alva. Exam is afebrile. Vital signs noted. Regular rate and rhythm. Lungs clear to auscultation bilaterally. Abdomen soft nontender with normal active bowel sounds. Medical Decision Making: I reviewed her prior laboratory work and her prior ED visits. She is even had a CTA of the chest in the past which did not show any acute process. As her pain has been ongoing for months, I do not feel narcotic pain medication is indicated. I reviewed her laboratory work and she has an elevated white count of 11.4 which I think is nonspecific, normal hemoglobin of 12.6. UA negative, test negative, lipase normal so I doubt pancreatitis. I do feel this is probably more of a chronic pain. She was given Ativan for panic attack. When she was told again that she would not receive narcotic pain medication from the emergency department, she requested discharge, but left with her IV in place as noted above. I feel she can be discharged to follow-up with gastroenterology and her primary care provider. Other additions or changes: [None] History & Record Review Discussion w/independent historian: Patient Lab Data Labs: Laboratory Results - last 24 hr 06/07/24 06/07/24 11:45 13:05 WBC 11.4 H RBC 4.40 Hgb 12.6 Hct 38.7 MCV 88.0 MCH 28.6 MCHC 32.6 RDW Std Deviation 45.0 H RDW Coeff of Dimitrios 13.9 Plt Count 384 MPV 10.1 Immature Gran % (Auto) 1.700 H Neut % (Auto) 54.9 Lymph % (Auto) 33.8 [place] % (Auto) 7.2 Eos % (Auto) 1.6 Baso % (Auto) 0.8 Absolute Neuts (auto) 6.3 Absolute Lymphs (auto) 3.86 Nucleated RBC % 0 Sodium 139 Potassium 3.8 Chloride 112 H Carbon Dioxide 23.0 Anion Gap 4 L BUN 13 Creatinine 0.52 L Estim Creat Clear Calc 148.99 Est GFR (MDRD) Af Amer 172 Est GFR (MDRD) Non-Af 142 BUN/Creatinine Ratio 25.1 H Glucose 96 Calcium 8.9 Total Bilirubin 0.20 AST 8 L ALT 15 Alkaline Phosphatase 64 Total Protein 6.8 Albumin 3.7 Globulin 3.1 Albumin/Globulin Ratio 1.2 Lipase 34 Serum , Qual NEGATIVE Urine Color Yellow Urine Clarity Clear Urine pH 7.0 Ur Specific [place] 1.005 Urine Protein Negative Urine Glucose (UA) Normal Urine Ketones Negative Urine Occult Blood 10 H Urine Nitrite Negative Urine Bilirubin Negative Urine Urobilinogen Normal Ur Leukocyte Esterase Negative Urine RBC 0 SEEN Urine WBC 0 SEEN Ur Squamous Epith Cells 0-5 SEEN Urine Bacteria 0 SEEN Urine Mucus 0 SEEN Radiography Chest X-Ray - ED: 1 View, Read by ED Physician, Read by Radiologist and No Acute Disease Diagnostic Testing: Clinical Impression(s) from Imaging Studies Chest X-Ray 06/07/24 11:24 IMPRESSION: No acute cardiopulmonary process identified. Electronically Signed: Janet Knowles MD at 12:56 EDT , Discharge Plan Triage Chief Complaint: Abd Pain ED Midlevel Provider: Patrica Woodruff ED Provider: Rad Wilkerson Dx/Rx/DC Orders Clinical Impression: Costochondritis, Crohn's disease, Nausea & vomiting Instructions: ED Chest Wall Pain, Costochondritis, ED Diet Vomiting Diarrhea Prescriptions: No Action alprazolam 1 mg tablet 1 mg PO TID PRN (Reason: anxiety) cetirizine 10 mg tablet 10 mg PO DAILY PRN (Reason: allergy symptoms) sucralfate 1 gram tablet 1 g PO QACHS Qty: 120 2RF Rx Instructions: Stop taking 5 days prior to scheduled EGD. Then resume after. sulfasalazine 500 mg tablet,delayed release (DR/EC) 0.5 g PO BID Qty: 60 2RF folic acid 1 mg tablet 1 mg PO QDAY Qty: 30 2RF diphenoxylate-atropine [Lomotil] 2.5-0.025 mg tablet 1 tab PO 4X/DAY PRN PRN (Reason: diarrhea) 5 Days Qty: 20 0RF promethazine [promethazine] 25 mg tablet 25 mg PO Q6H PRN PRN (Reason: Nausea) Qty: 10 0RF dicyclomine 20 mg tablet 20 mg PO 4X/DAY PRN PRN (Reason: abdominal pain) sucralfate [Carafate] 100 mg/mL suspension 10 ml PO BID PRN (Reason: abdominal pain) Qty: 400 0RF citalopram 40 mg tablet 20 mg PO QHS pantoprazole [Protonix] [address] for susp in packet 40 mg PO DAILY Qty: 30 0RF gabapentin 300 mg capsule 300 mg PO TID ondansetron 4 mg tablet,disintegrating 4 mg PO Q8H PRN PRN (Reason: Nausea) Qty: 10 0RF naproxen 500 mg tablet 500 mg PO Q8H Qty: 30 0RF Primary Care Provider: Azael Lr Referrals: Azael Lr MD [Primary Care Provider] - 3-5 Days Activity Restrictions/Additional Instructions: Please follow-up with your PCP and return for any worsening of your symptoms. Print Language: [place] Zealander Disposition Disposition: Home, Self Care Discharge Date/Time: 06/07/24 13:33
[2024-06-07] MEDS: Ondansetron 4 MG/2 ML Vial IV (11:33)
[2024-06-07] MEDS: Ketorolac 15 MG/ML Vial IV (11:37)
[2024-06-07] MEDS: LORazepam 2 MG/ML Syringe 1 MG IV (12:16)
[2024-06-07 12:19] LABS: Internal QC Validated? YES +Cl - CLEAR BKGD; Pregnancy, Serum, hCG Quali. NEGATIVE Negative
[2024-06-07 12:21] LABS: Absolute Lymphocyte Count 3.86 X10^3/uL (0.83-4.51); Absolute Neutrophil Count 6.3 X10^3/uL (2.0-7.7); Basophil# 0.09 X10^3/uL; Basophil% 0.8 % (0-1); Eosinophil# 0.18 X10^3/uL; Eosinophils% 1.6 % (0-5); Hematocrit 38.7 % (37-47); Hemoglobin 12.6 g/dL (12.0-15.0); Lymphocyte # 3.86 X10^3/ul (0.83-4.51); Lymphocyte % 33.8 % (19-41); Mean Corp Hgb Conc 32.6 g/dL (32-36); Mean Corpuscular Hgb 28.6 pg (27.0-32.0); Mean Platelet Vol. 10.1 fl (6.2-12.0); Monocyte# 0.82 X10^3/uL; Monocyte% 7.2 % (0-10); NRBC Flagged by Analyzer 0 % (0-5); Neutrophil # 6.28 X10^3/uL (2.7-7.7); Neutrophil % 54.9 % (47-70); Platelet Count 384 K/mm3 (150-450); RBC Distribution Width CV 13.9 % (11.6-14.6); White Blood Count 11.4 K/mm3 (4.4-11.0)
[2024-06-07 12:28] LABS: ALB/GLOB Ratio 1.2 RATIO (0.9-2.4); AST(SGOT) 8 U/L (15-37); Alanine Aminotransfer ALT/SGPT 15 U/L (13-56); Albumin, Serum 3.7 g/dL (3.2-5.0); Alkaline Phosphatase 64 U/L (45-117); Anion Gap 4 (5-15); BUN 13 mg/dL (7-18); BUN/Creat Ratio 25.1 RATIO (10-20); Calcium,Total 8.9 mg/dL (8.5-10.1); Chloride 112 mmol/L (98-107); Creatinine, Serum 0.52 mg/dL (0.55-1.02); EST Glomerular Filtration Rate 142 mL/min (>60); Est Glom Filt Rate - Afr Amer 172 mL/min (>60); Estimated Creatinine Clearance 148.99 ml/min; Globulin 3.1 g/dL (2.2-4.2); Glucose 96 mg/dL (74-106); Lipase 34 U/L (13-75); Potassium 3.8 mmol/L (3.5-5.1); Protein, Total 6.8 g/dL (6.4-8.2); Sodium Level 139 mmol/L (136-145)
[2024-06-07 13:12] LABS: Bacteria 0 SEEN /hpf (None Seen); Mucous, Urine 0 SEEN /hpf (<or=2+); Red Blood Cells-Urine 0 SEEN /hpf (0-5); White Blood Cells 0 SEEN /hpf (0-5)
[2024-06-07 13:18] LABS: Color, Urine Yellow (Yellow); Glucose, Dipstick Normal (Normal); Ketone-Dipstick Negative (Negative); Leukocyte Esterase-Dipstick Negative /ul (Negative); Nitrite-Dipstick Negative (Negative); Occult Blood-Urine 10 /ul (Negative); Protein-Dipstick Negative (Negative); Specific Gravity, Urine 1.005 (1.002-1.030); Urine Bilirubin Dipstick Negative (Negative); Urine Clarity Clear (Clear); Urine Urobilinogen Normal (Normal)
--- NOTE | 2024-06-07 13:20 | ED.RN ---
This RN received paperwork with d/c instructions to d/c patient. Upon entering room, pt not in room, restrooms checked, no sign of pt. Assumed left prior to d/c paperwork/home going instructions.
--- NOTE | 2024-06-07 13:25 | ED.RN ---
PT LEFT DEPARTMENT WITH IV IN PLACE. PT CONTACTED , TOLD SHE NEEDED TO RETURN AND SHOW IV HAS BEEN REMOVED OR POLICE WOULD BE CALLED
--- NOTE | 2024-06-07 13:30 | ED.RN ---
pt returned to prove her iv was out, but refused to get out of vehicle. this rn and security walked out to vehicle and visualized that there iv was no long in the pt.
[2024-06-07 13:38] LABS: Squamous Epithelial Cells - UA 0-5 SEEN /hpf (5-10)
--- NOTE | 2024-06-07 13:56 | ED.RN ---
PT MOTHER CONTACTED THIS RN STATING HER DAUGHTER LEFT DUE TO THE CARE SHE RECIEVED. THIS RN ATTEMPTED TO EXPLAIN TO MOTHER THE PROCESS, AND THAT PT LEFT WITH HER IV IN PLACE. PT THEN REQUIRED TO RETURN AND SHOW PROVE THAT IV WAS REMOVED. PT MOTHER VERBALIZED UNDERSTANDING. GIVEN PT ADVOCATE NUMBER
== END 2024-06-07 13:33 | disposition home or self-care (01) ==
PROVIDERS: Physician Assistant; Emergency Provider Emergency Medicine; PCP Family Medicine; Visit Provider Emergency Medicine
DX: M94.0 Chondrocostal junction syndrome [Tietze] (principal); K50.90 Crohn's disease, unspecified, without complications; R11.2 Nausea with vomiting, unspecified; F17.200 Nicotine dependence, unspecified, uncomplicated; F41.9 Anxiety disorder, unspecified; Z79.899 Other long term (current) drug therapy; Z53.29 Procedure and treatment not carried out because of patient's decision for other reasons
CPT/HCPCS: 71046; 80053; 81001; 83690; 84703; 85025; 96374; 96375; 99282; A4216; J2405

== ENCOUNTER 2024-07-10 11:31 | Day surgery (SDC) | payer OTHER, SELFPAY ==
[2024-07-10 12:10] VITALS: BP 120/56; PULSE 81; RESP 12; TEMP 36.1; O2SAT 94; BMI 27.7
[2024-07-10 12:10] LABS: Internal QC Validated? YES +Cl - CLEAR BKGD; Pregnancy, Urine Negative Negative
[2024-07-10 12:51] VITALS: BP 120/56; PULSE 81; RESP 12; TEMP 36.1; O2SAT 94
[2024-07-10 13:40] VITALS: BP 120/56; BP 97/57; PULSE 81; RESP 16; TEMP 36.2; O2SAT 100
[2024-07-10 13:45] VITALS: BP 110/68; BP 120/56; BP 97/57; PULSE 80; PULSE 82; RESP 16; TEMP 36.2; O2SAT 100; O2SAT 99
[2024-07-10 13:50] VITALS: BP 105/66; BP 120/56; PULSE 78; RESP 16; TEMP 36.5; O2SAT 100
[2024-07-10 14:06] VITALS: BP 120/56
== END 2024-07-10 14:10 | disposition home or self-care (01) ==
LOC: EN 11:32 → AC 11:33
PROVIDERS: Anesthesiology; PCP Family Medicine; Referring Provider Family Medicine; Visit Provider Internal Medicine Gastroenterology
PROC: 0DJD8ZZ Inspection of Lower Intestinal Tract, Via Natural or Artificial Opening Endoscopic (ICD-10-PCS; CPT 45378; principal; 2024-07-10 12:40)
DX: K21.00 Gastro-esophageal reflux disease with esophagitis, without bleeding (principal); K50.90 Crohn's disease, unspecified, without complications; K44.9 Diaphragmatic hernia without obstruction or gangrene; K57.30 Diverticulosis of large intestine without perforation or abscess without bleeding; F17.200 Nicotine dependence, unspecified, uncomplicated; Z79.899 Other long term (current) drug therapy
CPT/HCPCS: 45380; 43239; 81025; 88305; 88312; A4216; J2405

== ENCOUNTER → 2024-07-14 | Outpatient (CLI) | payer OTHER, SELFPAY ==
[2024-07-16 07:09] LABS: Calprotectin, Stool 21 ug/g (0-120)
[2024-07-16 22:07] LABS: Giardia Lamblia, Stool EIA Negative (Negative); Pancreatic Elastase, Fecal > 800 (>200)
== END | disposition home or self-care (01) ==
LOC: LABSPEC 09:39
PROVIDERS: PCP Family Medicine
DX: K50.90 Crohn's disease, unspecified, without complications (principal)
CPT/HCPCS: 82653; 83630; 83993; 87329; 87493; 87506

== ENCOUNTER → 2024-08-13 | Outpatient (CLI) | payer OTHER, SELFPAY ==
[2024-08-13 14:41] LABS: Absolute Neutrophil Count 4.8 X10^3/uL (2.0-7.7); Basophil# 0.06 X10^3/uL; Basophil% 0.7 % (0-1); Eosinophil# 0.17 X10^3/uL; Hematocrit 38.9 % (37-47); Hemoglobin 13.1 g/dL (12.0-15.0); Lymphocyte % 35.7 % (19-41); Mean Corp Hgb Conc 33.7 g/dL (32-36); Mean Corpuscular Hgb 29.2 pg (27.0-32.0); Mean Corpuscular Volume 86.8 fL (81-99); Monocyte# 0.49 X10^3/uL; Monocyte% 5.6 % (0-10); NRBC Flagged by Analyzer 0 % (0-5); Neutrophil # 4.84 X10^3/uL (2.7-7.7); Neutrophil % 55.8 % (47-70); Platelet Count 419 K/mm3 (150-450); RBC Distribution Width CV 13.5 % (11.6-14.6); RBC Distribution Width SD 42.8 fl (35.1-43.9); Red Blood Count 4.48 M/mm3 (4.2-5.4); White Blood Count 8.7 K/mm3 (4.4-11.0)
[2024-08-13 15:10] LABS: ALB/GLOB Ratio 1.2 RATIO (0.9-2.4); AST(SGOT) 10 U/L (15-37); Alanine Aminotransfer ALT/SGPT 15 U/L (13-56); Alkaline Phosphatase 62 U/L (45-117); Anion Gap 8 (5-15); BUN 19 mg/dL (7-18); BUN/Creat Ratio 34.3 RATIO (10-20); CRP 2.96 mg/L (0.0-3.0); Calcium,Total 9.1 mg/dL (8.5-10.1); Chloride 108 mmol/L (98-107); Creatinine, Serum 0.55 mg/dL (0.55-1.02); EST Glomerular Filtration Rate 131 mL/min (>60); Est Glom Filt Rate - Afr Amer 159 mL/min (>60); Globulin 3.3 g/dL (2.2-4.2); Glucose 98 mg/dL (74-106); Potassium 3.5 mmol/L (3.5-5.1); Protein, Total 7.3 g/dL (6.4-8.2); Sodium Level 139 mmol/L (136-145)
[2024-08-13 15:28] LABS: Hepatitis B Surface Antibody Non-Reactive; Hepatitis B Surface Antigen Non-Reactive (Nonreactive)
[2024-08-17 14:07] LABS: Hepatitis B Core Ab Total Negative (Negative); QNTFERON TB Mitogen Value > 10.00 IU/mL (.); QNTFERON TB Nil Value 0 IU/mL (.); QNTFERON TB1+ Ag Value 0.01 IU/mL (.); QNTFERON TB2+ Ag Value 0 IU/mL (.); QNTIFERON TB Positive Criteria Negative (Negative)
== END | disposition home or self-care (01) ==
LOC: LAB 13:42
PROVIDERS: PCP Family Medicine; Referring Provider Nurse Practitioner Acute Care; Visit Provider Nurse Practitioner Acute Care
DX: K50.919 Crohn's disease, unspecified, with unspecified complications (principal); R11.0 Nausea
CPT/HCPCS: 36415; 80053; 85025; 86140; 86480; 86704; 86706; 86787; 87340

== ENCOUNTER 2024-08-19 17:11 | Emergency (ER) | payer OTHER, SELFPAY ==
[2024-08-19 17:11] VITALS: BP 116/59; PULSE 82; RESP 16; TEMP 37.1; O2SAT 100; BMI 28.3
[2024-08-19 17:14] VITALS: BP 116/59; PULSE 82; RESP 16; TEMP 37.1; O2SAT 100
--- NOTE | 2024-08-19 17:40 | US_ITS ---
INDICATION: PAIN EXAMINATION: Ultrasound US Abdomen RUQ (limited) TECHNIQUE: Lawrence-scale and color Doppler imaging was performed of the abdomen. COMPARISON: FINDINGS: LIVER: There is normal echotexture measuring 17.1 cm. No focal hepatic lesion. No intrahepatic biliary ductal dilatation. There is no free fluid. GALLBLADDER AND BILIARY TREE: Cholelithiasis. No pericholecystic fluid or gallbladder wall thickening is demonstrated. The proximal common bile duct measures 6 mm, which is borderline in size. SONOGRAPHIC MÁRQUEZ''S SIGN: Positive. PANCREAS: No focal abnormality is demonstrated in the pancreas. No pancreatic ductal dilatation. RIGHT KIDNEY: 10.3 x 4.8 x 4.7 cm. The cortex is 13 mm. There is no hydronephrosis. No shadowing calculus, focal lesion, or perinephric collection is demonstrated. VESSELS: Submitted longitudinal images of the intra-abdominal aorta demonstrate no gross abnormalities and are unremarkable. The IVC is patent. US/Gallbladder IMPRESSION: Cholelithiasis. Positive sonographic Márquez''s sign. Electronically Signed: Livan Antonio DO at 19:13 EST ,
--- NOTE | 2024-08-19 17:41 | ED.VIS.GI ---
HPI HPI - GI History of Present Illness Chief Complaint: Abd Pain Informant: patient Abdominal Pain/Flank Pain Onset: Days (2) Context: Sudden Onset Timing: Continuous Quality: Sharp and Stabbing Location: RUQ Worsened by: Nothing Relieved by: Nothing Nausea/Vomiting/Emesis GI Symptom: Positive for Nausea and Vomiting Quality: Positive for Nonbilious; Negative for Blood streaks, Coffee ground or Hematemesis Diarrhea/Melena/Hematochezia GI Symptom: Positive for Diarrhea; Negative for Melena or Hematochezia Associated Symptoms Associated Symptoms: Positive for Dysuria; Negative for Frequency or Hematuria Narrative Narrative: Patient presents with abdominal pain that has been getting worse over the past 2 days. Patient states it began rather suddenly. Patient describes it as sharp and stabbing. Patient states it is over the right upper abdomen. Patient states it radiates into her right scapular area. Patient states nothing makes it worse and nothing makes it better. Patient admits to some nausea and vomiting but denies any hematemesis or coffee-ground emesis. Patient admits to some diarrhea but denies any melena or hematochezia. Patient admits to some dysuria but denies any frequency or hematuria. Patient states her last menstrual period was 1 week ago. Patient admits to some subjective chills. [facility] Medical History (Updated 08/19/24 @ 22:[address] Haris Smith, DO) Hidradenitis suppurativa Wears glasses Wears contact lenses Restless legs Migraine headache History of ulceration Gastric reflux Smoker History of irregular heartbeat Groin abscess Left ovarian cyst Stephanie Tobar infection Colitis Gestational diabetes Crohns disease Depression Anxiety Home Medications ?Medication ?Instructions ?Recorded ?Last Taken ?Type diphenoxylate-atropine 2.5 1 tab PO 4X/DAY PRN PRN diarrhea 5 11/22/22 Unknown Rx mg-0.025 mg tablet (Lomotil) days #20 tabs promethazine 25 mg tablet 25 mg PO Q6H PRN PRN Nausea #10 02/04/23 Unknown Rx TABLETS alprazolam 1 mg tablet 1 mg PO TID PRN anxiety 11/15/23 07/09/24 History cetirizine 10 mg tablet 10 mg PO DAILY PRN allergy symptoms 11/15/23 07/09/24 History citalopram 40 mg tablet 20 mg PO QHS 12/26/23 07/09/24 History pantoprazole 40 mg granules 40 mg PO DAILY #30 ea 12/26/23 07/09/24 Rx delayed-release for susp in packet (Protonix) gabapentin 300 mg capsule 300 mg PO QHS 02/10/24 07/09/24 History folic acid 1 mg tablet 1 mg PO QDAY #30 tabs 06/02/24 07/02/24 Rx hyoscyamine sulfate 0.125 mg tablet 0.125 mg PO Q8 dyspepsia #90 tabs 07/21/24 Unknown Rx ondansetron 4 mg disintegrating 4 mg PO Q8H PRN PRN Nausea #30 tabs 07/24/24 Unknown Rx tablet budesonide 3 mg 9 mg (3 x 3 mg) PO QAM Crohn's #90 08/13/24 Unknown Rx capsule,delayed,extended release ea hydrocodone-acetaminophen 5-325mg 1 tab PO Q6H PRN PRN Pain 3 days 08/19/24 Unknown Rx 5mg-325mg #10 TABLETS Allergy/AdvReac Type Severity Reaction Status Date / Time nectarine Allergy Angioedema Verified 08/19/24 17:12 metoclopramide (From Reglan) AdvReac headache Verified 08/19/24 17:12 Family History Mother Heart disease Pacemaker Grandfather Diabetes Grandmother Diabetes Surgical History History of colonoscopy (~2016) History of esophagogastroduodenoscopy (EGD) (~2018) History of colonoscopy (~2017) History of wisdom tooth extraction Social History household members: spouse Smoking Status: Current every day smoker tobacco type: cigarettes alcohol intake: never substance use type: does not use caffeine: Yes what type of physical activity do you participate in: walking seatbelt use: always do you feel safe at home: Yes additional social history: [employer] ROS ROS ED Constitutional Constitutional ED: Reports chills and subjective; Denies fever(s) Eyes Eyes: Denies blurry vision or change in vision ENT ENT ED: Denies rhinorrhea or sore throat Cardiovascular Cardiovascular: Reports chest pain; Denies palpitations Respiratory/Chest Respiratory/Chest: Denies cough or dyspnea Gastrointestinal Gastrointestinal: Reports abdominal pain, diarrhea, nausea and vomiting; Denies melena Genitourinary Genitourinary ED: Reports dysuria; Denies hematuria Musculoskeletal Musculoskeletal: Reports back pain; Denies neck pain Integumentary Reports abscess; Denies rash Neurologic Neurologic: Denies headache(s) or weakness Allergic/Immunologic Allergic/Immunologic ED: Denies mouth swelling or urticaria EXAM Physical Exam Const Vital Signs: 08/19/24 17:11 08/19/24 17:14 08/19/24 19:11 Temperature 98.7 F 98.7 F Temperature Source Oral Oral Pulse Rate 82 82 70 Respiratory Rate 16 16 14 Blood Pressure 116/59 L 116/59 L 115/69 Blood Pressure Mean 78 78 84 Pulse Ox 100 100 98 Oxygen Delivery Method Room Air Room Air Room Air 08/19/24 21:00 Temperature Temperature Source Pulse Rate 68 Respiratory Rate 16 Blood Pressure 105/67 Blood Pressure Mean 79 Pulse Ox 97 Oxygen Delivery Method Room Air Positive well nourished and well developed General Appearance ED: well developed and NAD HEENT Reports moist mucous membranes Neck supple and no JVD Resp normal respiratory effort and clear to auscultation bilaterally Cardio regular rate and regular rhythm GI non-distended Palpation: soft and tender epigastric, RUQ, periumbilical and Márquez's sign; Negative for guarding or rebound tenderness present Extremity full ROM General Extremety ED: Negative for edema or tenderness General Extremity: Negative for edema Neuro CN's II-XII intact bilaterally, moves all extremities, no sensory deficits noted and gait normal Sensorium / Orientation: alert Motor Exam: strength 5/5 throughout Psych mental status grossly normal and thought process normal MDM MDM MDM Narrative Medical decision making narrative: Differential diagnosis includes cholecystitis, cholelithiasis, pancreatitis, Crohn's exacerbation, peptic ulcer disease, duodenal ulcer, colitis, pyelonephritis, and urinary tract infection. CBC will be obtained to assess for leukocytosis and anemia. Comprehensive metabolic profile will be obtained to assess for hepatic function, renal function, and electrolyte abnormality. Lipase will be obtained to assess for pancreatitis. Urinalysis will be obtained to assess for urinary tract infection and hematuria. Serum hCG will be obtained to assess for . Right upper quadrant ultrasound will be obtained to assess for cholecystitis and cholelithiasis. Lab Data Attestation: I reviewed the patient's lab results. Lab results narrative: CBC was reviewed and was within normal limits. Comprehensive metabolic profile was reviewed and was within normal limits. Lipase was reviewed and was normal at 37. Serum hCG was reviewed and was negative. Urinalysis was reviewed. Occult blood was examined with 5-10 red blood cells. There is no evidence of urinary tract infection. Labs: Laboratory Results - last 24 hr 08/19/24 08/19/24 17:30 17:39 WBC 9.5 RBC 4.37 Hgb 12.7 Hct 38.2 MCV 87.4 MCH 29.1 MCHC 33.2 RDW Std Deviation 43.1 RDW Coeff of Dimitrios 13.4 Plt Count 365 MPV 9.8 Immature Gran % (Auto) 0.400 Neut % (Auto) 52.3 Lymph % (Auto) 37.9 [place] % (Auto) 6.2 Eos % (Auto) 2.4 Baso % (Auto) 0.8 Absolute Neuts (auto) 5.0 Absolute Lymphs (auto) 3.60 Nucleated RBC % 0 Sodium 138 Potassium 3.7 Chloride 108 H Carbon Dioxide 26.0 Anion Gap 4 L BUN 12 Creatinine 0.59 Estim Creat Clear Calc 130.67 Est GFR (MDRD) Af Amer 147 Est GFR (MDRD) Non-Af 122 BUN/Creatinine Ratio 20.3 H Glucose 96 Calcium 9.2 Total Bilirubin 0.30 AST 10 L ALT 19 Alkaline Phosphatase 60 Total Protein 6.7 Albumin 3.7 Globulin 3.0 Albumin/Globulin Ratio 1.2 Lipase 37 Serum , Qual NEGATIVE Urine Color Yellow Urine Clarity Clear Urine pH 7.0 Ur Specific [place] 1.005 Urine Protein Negative Urine Glucose (UA) Normal Urine Ketones Negative Urine Occult Blood 10 H Urine Nitrite Negative Urine Bilirubin Negative Urine Urobilinogen Normal Ur Leukocyte Esterase Negative Urine RBC 5-10 SEEN Urine WBC 0-5 SEEN Ur Squamous Epith Cells 0-5 SEEN Urine Bacteria 0 SEEN Urine Mucus 0 SEEN Radiography Diagnostic Testing: Clinical Impression(s) from Imaging Studies Gallbladder Ultrasound 08/19/24 17:40 IMPRESSION: Cholelithiasis. Positive sonographic Márquez''s sign. Electronically Signed: Livan Antonio DO at 19:13 EST Reading Location ID and State: [facility] Tel [phone], Service support , Abdomen/Pelvis CT 08/19/24 20:57 IMPRESSION: Bilateral adnexal cystic lesions. Correlate with pelvic ultrasound if needed. Electronically Signed: Livan Antonio DO at 21:28 EST , Right upper quadrant ultrasound was obtained. There is cholelithiasis and positive sonographic Márquez sign. There is no ductal dilatation. There is no wall thickening or pericholecystic fluid. This was interpreted by the radiologist and was also independently reviewed by myself. CT scan of the abdomen and pelvis was obtained. There are bilateral adnexal cysts noted. There is no acute abnormality noted. This was interpreted by the radiologist and was also independently reviewed by myself. Treatment and Re-Evaluation :: Patient was given IV fluids, morphine, and Zofran. Patient was feeling better on reevaluation. Case was discussed with Dr. Johnson. She recommended obtaining a CT scan of the abdomen pelvis due to her history of Crohn's disease. Patient was advised there is no acute abnormality on CT scan. I also discussed this with Dr. Johnson. Patient was given a repeat dose of morphine. Patient will be discharged home. Patient was instructed to follow-up in 5 to 7 days. Patient was instructed return if worse in any way. Patient understood and was agreeable with the plan. All questions were answered. Discharge Plan Triage Chief Complaint: Abd Pain ED Provider: Haris Smith Dx/Rx/DC Orders Clinical Impression: Right upper quadrant abdominal pain, Crohn's disease, Cholelithiasis Instructions: ED Abdominal Pain Gallstone Poss, ED Crohn's Disease, ED Gallstones with Biliary Colic Prescriptions: New hydrocodone-acetaminophen 5-325 mg tablet 1 tab PO Q6H PRN PRN (Reason: Pain) 3 Days Qty: 10 0RF No Action alprazolam 1 mg tablet 1 mg PO TID PRN (Reason: anxiety) cetirizine 10 mg tablet 10 mg PO DAILY PRN (Reason: allergy symptoms) folic acid 1 mg tablet 1 mg PO QDAY Qty: 30 2RF budesonide 3 mg capsule,delayed,extend.release 9 mg PO QAM Qty: 90 0RF diphenoxylate-atropine [Lomotil] 2.5-0.025 mg tablet 1 tab PO 4X/DAY PRN PRN (Reason: diarrhea) 5 Days Qty: 20 0RF promethazine [promethazine] 25 mg tablet 25 mg PO Q6H PRN PRN (Reason: Nausea) Qty: 10 0RF citalopram 40 mg tablet 20 mg PO QHS pantoprazole [Protonix] [address] for susp in packet 40 mg PO DAILY Qty: 30 0RF gabapentin 300 mg capsule 300 mg PO QHS hyoscyamine sulfate 0.125 mg tablet 0.125 mg PO Q8 Qty: 90 1RF ondansetron 4 mg tablet,disintegrating 4 mg PO Q8H PRN PRN (Reason: Nausea) Qty: 30 0RF Primary Care Provider: Azael Lr Referrals: Azael Lr MD [Primary Care Provider] - Jeremiah Alva DO [Med Staff - Active Staff] - 5-7 Days Darlene Johnson MD [Med Staff - Active Staff] - 5-7 Days Print Language: Venezuelan Disposition Disposition: Home, Self Care
[2024-08-19] MEDS: Morphine 4 MG/ML Syringe IV ×2 (17:46→19:11)
[2024-08-19] MEDS: Ondansetron 4 MG/2 ML Vial IV (17:46)
[2024-08-19] MEDS: 0.9% Normal Saline (1000mL) 1,000 ML 999 ML IV (17:47)
[2024-08-19 17:50] LABS: Bacteria 0 SEEN /hpf (None Seen); Mucous, Urine 0 SEEN /hpf (<or=2+)
[2024-08-19 17:58] LABS: Basophil# 0.08 X10^3/uL; Basophil% 0.8 % (0-1); Eosinophil# 0.23 X10^3/uL; Eosinophils% 2.4 % (0-5); Hematocrit 38.2 % (37-47); Hemoglobin 12.7 g/dL (12.0-15.0); Lymphocyte % 37.9 % (19-41); Mean Corp Hgb Conc 33.2 g/dL (32-36); Mean Corpuscular Hgb 29.1 pg (27.0-32.0); Mean Corpuscular Volume 87.4 fL (81-99); Mean Platelet Vol. 9.8 fl (6.2-12.0); Monocyte# 0.59 X10^3/uL; Monocyte% 6.2 % (0-10); NRBC Flagged by Analyzer 0 % (0-5); Neutrophil # 4.95 X10^3/uL (2.7-7.7); Neutrophil % 52.3 % (47-70); Platelet Count 365 K/mm3 (150-450); RBC Distribution Width CV 13.4 % (11.6-14.6); RBC Distribution Width SD 43.1 fl (35.1-43.9); Red Blood Count 4.37 M/mm3 (4.2-5.4); White Blood Count 9.5 K/mm3 (4.4-11.0)
[2024-08-19 18:03] LABS: Internal QC Validated? YES +Cl - CLEAR BKGD; Pregnancy, Serum, hCG Quali. NEGATIVE Negative
[2024-08-19 18:11] LABS: ALB/GLOB Ratio 1.2 RATIO (0.9-2.4); AST(SGOT) 10 U/L (15-37); Alanine Aminotransfer ALT/SGPT 19 U/L (13-56); Albumin, Serum 3.7 g/dL (3.2-5.0); Alkaline Phosphatase 60 U/L (45-117); Anion Gap 4 (5-15); BUN 12 mg/dL (7-18); BUN/Creat Ratio 20.3 RATIO (10-20); Calcium,Total 9.2 mg/dL (8.5-10.1); Chloride 108 mmol/L (98-107); Creatinine, Serum 0.59 mg/dL (0.55-1.02); EST Glomerular Filtration Rate 122 mL/min (>60); Est Glom Filt Rate - Afr Amer 147 mL/min (>60); Estimated Creatinine Clearance 130.67 ml/min; Glucose 96 mg/dL (74-106); Lipase 37 U/L (13-75); Potassium 3.7 mmol/L (3.5-5.1); Protein, Total 6.7 g/dL (6.4-8.2); Sodium Level 138 mmol/L (136-145)
[2024-08-19 18:13] LABS: Color, Urine Yellow (Yellow); Glucose, Dipstick Normal (Normal); Ketone-Dipstick Negative (Negative); Leukocyte Esterase-Dipstick Negative /ul (Negative); Nitrite-Dipstick Negative (Negative); Occult Blood-Urine 10 /ul (Negative); Protein-Dipstick Negative (Negative); Specific Gravity, Urine 1.005 (1.002-1.030); Urine Bilirubin Dipstick Negative (Negative); Urine Clarity Clear (Clear); Urine Urobilinogen Normal (Normal)
[2024-08-19 18:49] LABS: White Blood Cells 0-5 SEEN /hpf (0-5)
[2024-08-19 18:50] LABS: Red Blood Cells-Urine 5-10 SEEN /hpf (0-5); Squamous Epithelial Cells - UA 0-5 SEEN /hpf (5-10)
[2024-08-19 19:11] VITALS: BP 115/69; PULSE 70; RESP 14; O2SAT 98
--- NOTE | 2024-08-19 20:57 | CT_ITS ---
STUDY: CT ABDOMEN AND PELVIS WITH CONTRAST REASON FOR EXAM: Female, 38 years old. Abdominal pain RADIATION DOSAGE (If Supplied By Facility): CTDIvol = ( 15.81 ) mGy, DLP = ( 937.79 ) mGycm TECHNIQUE: Transaxial images were obtained from the dome of the diaphragm to the symphysis pubis without oral contrast. IV 100mL Isovue-300 was administered. Sagittal and coronal images were reconstructed. Individualized dose optimization techniques were used for this CT. COMPARISON: None. FINDINGS: The visualized lung bases are unremarkable. The visualized portions of the heart are within normal limits. Normal liver. Normal gallbladder and extrahepatic biliary system. Normal spleen. Normal pancreas. Normal bilateral adrenal glands. Normal right kidney. Normal left kidney. Normal visualized stomach. Normal small intestine. Normal colon. The appendix is visualized and appears normal. Normal abdominal aorta. Normal inferior vena cava. Normal retroperitoneum. Normal urinary bladder. Up to 2 cm the right ovarian cystic lesions. 3.5 cm left ovarian cystic lesion. Normal abdominal wall. Normal osseous structures. CT/Abdomen/Pelvis W IV Cont ONLY IMPRESSION: Bilateral adnexal cystic lesions. Correlate with pelvic ultrasound if needed. Electronically Signed: Livan Antonio DO at 21:28 EST ,
[2024-08-19 21:00] VITALS: BP 105/67; PULSE 68; RESP 16; O2SAT 97
[2024-08-19] MEDS: HYDROcodone Bitartrate/Apap 5/325 Tablet PO (22:53)
[2024-08-19 22:56] VITALS: BP 129/74; PULSE 65; RESP 16; TEMP 36.4; O2SAT 99
== END 2024-08-19 22:57 | disposition home or self-care (01) ==
PROVIDERS: Emergency Provider Emergency Medicine; PCP Family Medicine; Visit Provider Emergency Medicine
DX: R10.11 Right upper quadrant pain (principal); K50.90 Crohn's disease, unspecified, without complications; K80.20 Calculus of gallbladder without cholecystitis without obstruction; R19.7 Diarrhea, unspecified; F17.210 Nicotine dependence, cigarettes, uncomplicated; K21.9 Gastro-esophageal reflux disease without esophagitis; R07.9 Chest pain, unspecified
CPT/HCPCS: 74177; 76705; 80053; 81001; 83690; 84703; 85025; 96361; 96374; 96375; 96376; 99283; Q9967; A4216; J2405

== ENCOUNTER 2024-08-27 14:52 | Emergency (ER) | payer OTHER, SELFPAY ==
[2024-08-27 14:53] VITALS: BP 105/88; PULSE 81; RESP 16; TEMP 36.9; O2SAT 99; BMI 27.6
--- NOTE | 2024-08-27 15:48 | US_ITS ---
STUDY: ABDOMINAL ULTRASOUND - RIGHT UPPER QUADRANT REASON FOR VISIT: Female, 38 years old PAIN; known stones, sx worsening TECHNIQUE: Ultrasound evaluation of the right upper quadrant was performed with real-time and static schroeder-scale imaging. TECHNICAL QUALITY: Adequate. COMPARISON: CT abdomen and pelvis August 19, 2024. Abdominal ultrasound same day. FINDINGS: Liver: The liver measures 17.3 cm. There is increased echogenicity consistent with fatty infiltration. The bile ducts are within normal limits. There is hepatic color flow. The direction of portal flow is hepatopetal. There is no demonstrated mass lesion. Gallbladder: Normal distended gallbladder. The gallbladder wall measures 1.5 mm. There is a negative sonographic Márquez''s sign. There is no pericholecystic fluid. Multiple gallstones. Common Bile Duct (C.B.D.): The common bile duct measures 3.4 mm. Pancreas: Normal size of the head, body and tail of the pancreas. There is increased echogenicity of the pancreas. There is no demonstrated pancreatic mass or cyst. Right Kidney: Normal size of the right kidney. The right kidney measures 10.5 cm. Normal renal cortex. The right cortex measures 1.4 cm. There is no demonstrated renal mass or cyst. There is no right hydronephrosis. US/Gallbladder IMPRESSION: Cholelithiasis without evidence of cholecystitis or common bile duct obstruction Electronically Signed: Chico Calloway MD at 17:36 EST ,
--- NOTE | 2024-08-27 15:49 | EDS_ITS ---
HPI HPI - GI History of Present Illness Chief Complaint: Abd Pain Informant: patient Narrative Narrative: 38-year-old female is here with right upper quadrant pain and about 10 days ago diagnosed with gallstones child has a history of Crohn's that she is currently on no medications for, she states the pain has been there ever since she was discharged, it has been worse for the past 2 days with nausea and vomiting to the point where she is really not eating. She denies any fevers, chills, confusion, jaundice that she knows of. Crohn's she has known about for maybe 8 years. She has 5-10 loose nonbloody bowel movements per day. She was on Lialda but it did not help so she has not been on it. She has an appointment with Dr. Alva and is possibly going to get on Humira but has not had any of that yet. She states she has had abdominal pains in the last 8 years periodically with her Crohn's but nothing like this this is all different and localized to the right lateral upper quadrant radiating around the flank to her back without any urinary symptoms. Does not go to her shoulder. She was scheduled to see surgery as an outpatient, the appointment is tomorrow but she states his symptoms have been miserable for the last 2 days and she could not wait. [facility] Medical History Hidradenitis suppurativa Wears glasses Wears contact lenses Restless legs Migraine headache History of ulceration Gastric reflux Smoker History of irregular heartbeat Groin abscess Left ovarian cyst Stephanie Tobar infection Colitis Gestational diabetes Crohns disease Depression Anxiety Home Medications ?Medication ?Instructions ?Recorded ?Last Taken ?Type diphenoxylate-atropine 2.5 1 tab PO 4X/DAY PRN PRN diarrhea 5 11/22/22 Unknown Rx mg-0.025 mg tablet (Lomotil) days #20 tabs promethazine 25 mg tablet 25 mg PO Q6H PRN PRN Nausea #10 02/04/23 Unknown Rx TABLETS alprazolam 1 mg tablet 1 mg PO TID PRN anxiety 11/15/23 07/09/24 History cetirizine 10 mg tablet 10 mg PO DAILY PRN allergy symptoms 11/15/23 07/09/24 History citalopram 40 mg tablet 20 mg PO QHS 12/26/23 07/09/24 History pantoprazole 40 mg granules 40 mg PO DAILY #30 ea 12/26/23 07/09/24 Rx delayed-release for susp in packet (Protonix) gabapentin 300 mg capsule 300 mg PO QHS 02/10/24 07/09/24 History folic acid 1 mg tablet 1 mg PO QDAY #30 tabs 06/02/24 07/02/24 Rx hyoscyamine sulfate 0.125 mg tablet 0.125 mg PO Q8 dyspepsia #90 tabs 07/21/24 Unknown Rx ondansetron 4 mg disintegrating 4 mg PO Q8H PRN PRN Nausea #30 tabs 07/24/24 Unknown Rx tablet budesonide 3 mg 9 mg (3 x 3 mg) PO QAM Crohn's #90 08/13/24 Unknown Rx capsule,delayed,extended release ea hydrocodone-acetaminophen 5-325mg 1 tab PO Q6H PRN PRN Pain 3 days 08/19/24 Unknown Rx 5mg-325mg #10 TABLETS prednisone 20 mg tablet 40 mg (2 x 20 mg) PO DAILY 5 days 08/27/24 Unknown Rx #10 tabs Allergy/AdvReac Type Severity Reaction Status Date / Time nectarine Allergy Angioedema Verified 08/27/24 14:53 metoclopramide (From Reglan) AdvReac headache Verified 08/27/24 14:53 Family History Mother Heart disease Pacemaker Grandfather Diabetes Grandmother Diabetes Surgical History History of colonoscopy (~2016) History of esophagogastroduodenoscopy (EGD) (~2017) History of colonoscopy (~2017) History of wisdom tooth extraction Social History household members: spouse Smoking Status: Current every day smoker tobacco type: cigarettes alcohol intake: never substance use type: does not use caffeine: Yes what type of physical activity do you participate in: walking seatbelt use: always do you feel safe at home: Yes additional social history: [employer] ROS ROS ED Constitutional Constitutional ED: Reports malaise; Denies chills or fever(s) Eyes Eyes: Denies change in vision or diplopia ENT ENT ED: Denies rhinorrhea or sore throat Cardiovascular Cardiovascular: Denies chest pain or palpitations Respiratory/Chest Respiratory/Chest: Denies cough or dyspnea Gastrointestinal Gastrointestinal: Reports abdominal pain, diarrhea, nausea and vomiting; Denies hematemesis, hematochezia or melena Genitourinary Genitourinary ED: Denies dysuria or hematuria Musculoskeletal Musculoskeletal: Reports back pain; Denies neck pain Integumentary Denies abscess or rash Neurologic Neurologic: Denies headache(s), paresthesias or weakness Psychiatric Psychiatric: Denies anxiety or suicidal thoughts EXAM Physical Exam Const Vital Signs: 08/27/24 14:53 08/27/24 16:53 Temperature 98.4 F Temperature Source Oral Pulse Rate 81 74 Respiratory Rate 16 18 Blood Pressure 105/88 H 100/65 Blood Pressure Mean 93 76 Pulse Ox 99 99 Oxygen Delivery Method Room Air Room Air Positive well nourished and well developed General Appearance ED: well developed and NAD HEENT Reports moist mucous membranes normocephalic and atraumatic Eyes PERRL and EOMs intact bilaterally Neck full ROM and supple Resp normal respiratory effort and clear to auscultation bilaterally Cardio regular rate, regular rhythm and no murmurs GI non-distended GI Narrative: Tender throughout the right upper quadrant laterally and medially, less in the epigastrium, and less still in the right lower quadrant. There is positive Márquez sign but no other guarding or rebound tenderness. The rest of her abdomen is benign. Auscultation: normoactive bowel sounds Palpation: soft Back/Spine no CVA tenderness General Back: other FROM Extremity normal to inspection General Extremety ED: Negative for edema, pulses abnormal or tenderness General Extremity: Negative for edema or pulses abnormal Neuro oriented x3, CN's II-XII intact bilaterally and no sensory deficits noted Sensorium / Orientation: awake and alert Motor Exam: strength 5/5 throughout Psych mental status grossly normal and thought process normal Mood & Affect: tearful Skin no rashes or lesions noted and no wounds MDM MDM MDM Narrative Medical decision making narrative: She had a prior CT and ultrasound, the ultrasound was remarkable for gallstones and a positive sonographic Márquez's, but the CT did not show any radiographic abnormality in her right upper quadrant. Therefore I think it would be more valuable to repeat the ultrasound rather than the CT at this point since this sounds more like biliary colic that it does Crohn's exacerbation or complication. In the meantime the patient was treated her symptoms and gave her IV fluids. She did feel better especially after getting some fentanyl. I repeated her ultrasound as above, I reviewed the images and report which I agree with, it is negative for acute cholecystitis. There is no evidence of choledocholithiasis or dilated biliary plumbing. Urine is negative for infection arguing against pyelonephritis and a CT showed no obstructive uropathy. She has a very slight nonspecifically elevated white blood count, but there is no leftward shift in her liver enzymes and lipase are all normal. Given her Crohn's, I think it would be reasonable to try her on a short course of steroid to see if that helps while she follows up with surgery as an outpatient at 2:30 PM tomorrow. She is comfortable with that plan. Give her some Solu-Medrol prior to discharge here. History & Record Review Additional record(s) reviewed:: Prior ED visit Lab Data Attestation: I reviewed the patient's lab results. Labs: Laboratory Results - last 24 hr 08/27/24 08/27/24 15:22 17:05 WBC 11.4 H RBC 4.94 Hgb 14.3 Hct 43.2 MCV 87.4 MCH 28.9 MCHC 33.1 RDW Std Deviation 43.8 RDW Coeff of Dimitrios 13.8 Plt Count 420 MPV 10.1 Immature Gran % (Auto) 0.500 Neut % (Auto) 50.3 Lymph % (Auto) 40.1 Duchesne % (Auto) 6.1 Eos % (Auto) 2.1 Baso % (Auto) 0.9 Absolute Neuts (auto) 5.7 Absolute Lymphs (auto) 4.55 H Nucleated RBC % 0 Sodium 137 Potassium 3.9 Chloride 105 Carbon Dioxide 25.0 Anion Gap 7 BUN 10 Creatinine 0.64 Estim Creat Clear Calc 119.00 Est GFR (MDRD) Af Amer 136 Est GFR (MDRD) Non-Af 112 BUN/Creatinine Ratio 15.7 Glucose 90 Calcium 9.6 Total Bilirubin 0.40 AST 14 L ALT 20 Alkaline Phosphatase 69 Total Protein 7.8 Albumin 4.2 Globulin 3.6 Albumin/Globulin Ratio 1.2 Lipase 35 Urine Color Yellow Urine Clarity Clear Urine pH 6.0 Ur Specific Nallen 1.010 Urine Protein Negative Urine Glucose (UA) Normal Urine Ketones Negative Urine Occult Blood 25 H Urine Nitrite Negative Urine Bilirubin Negative Urine Urobilinogen Normal Ur Leukocyte Esterase 25 H Urine RBC 0-5 SEEN Urine WBC 0-5 SEEN Ur Squamous Epith Cells 5-10 SEEN Urine Bacteria 1+ Urine Mucus 0 SEEN Radiography Diagnostic Testing: Clinical Impression(s) from Imaging Studies Gallbladder Ultrasound 08/27/24 15:48 IMPRESSION: Cholelithiasis without evidence of cholecystitis or common bile duct obstruction Electronically Signed: Chico Calloway MD at 17:36 EST Reading Location ID and State: [address] [place] [address] Tel , Service support , Discharge Plan Triage Chief Complaint: Abd Pain ED Provider: Gabe Harris Dx/Rx/DC Orders Clinical Impression: Right upper quadrant abdominal pain, Crohn's disease, Cholelithiasis Instructions: ED Crohn's Disease, ED Flank Pain, Uncertain Cause Prescriptions: New prednisone 20 mg tablet 40 mg PO DAILY 5 Days Qty: 10 0RF No Action alprazolam 1 mg tablet 1 mg PO TID PRN (Reason: anxiety) cetirizine 10 mg tablet 10 mg PO DAILY PRN (Reason: allergy symptoms) folic acid 1 mg tablet 1 mg PO QDAY Qty: 30 2RF budesonide 3 mg capsule,delayed,extend.release 9 mg PO QAM Qty: 90 0RF diphenoxylate-atropine [Lomotil] 2.5-0.025 mg tablet 1 tab PO 4X/DAY PRN PRN (Reason: diarrhea) 5 Days Qty: 20 0RF promethazine [promethazine] 25 mg tablet 25 mg PO Q6H PRN PRN (Reason: Nausea) Qty: 10 0RF citalopram 40 mg tablet 20 mg PO QHS pantoprazole [Protonix] [address] for susp in packet 40 mg PO DAILY Qty: 30 0RF gabapentin 300 mg capsule 300 mg PO QHS hydrocodone-acetaminophen 5-325 mg tablet 1 tab PO Q6H PRN PRN (Reason: Pain) 3 Days Qty: 10 0RF hyoscyamine sulfate 0.125 mg tablet 0.125 mg PO Q8 Qty: 90 1RF ondansetron 4 mg tablet,disintegrating 4 mg PO Q8H PRN PRN (Reason: Nausea) Qty: 30 0RF Primary Care Provider: Azael Lr Referrals: Jeremiah Alva DO [Med Staff - Active Staff] - [facility] appointment Darlene Johnson MD [Med Staff - Active Staff] - [facility] appointment Activity Restrictions/Additional Instructions: He received initial dose of steroids in the ER, so the prescription does not need to be started until 08/28. Print Language: Jordanian Disposition Disposition: Home, Self Care
[2024-08-27] MEDS: 0.9% Normal Saline (1000mL) 1,000 ML 999 ML IV (15:56)
[2024-08-27] MEDS: Ketorolac 30 MG/ML Syringe IV (15:56)
[2024-08-27] MEDS: Ondansetron 4 MG/2 ML Vial IV (15:57)
[2024-08-27] MEDS: Morphine 4 MG/ML Syringe IV (15:57)
[2024-08-27 16:02] LABS: Absolute Lymphocyte Count 4.55 X10^3/uL (0.83-4.51); Absolute Neutrophil Count 5.7 X10^3/uL (2.0-7.7); Basophil% 0.9 % (0-1); Eosinophil# 0.24 X10^3/uL; Eosinophils% 2.1 % (0-5); Hematocrit 43.2 % (37-47); Hemoglobin 14.3 g/dL (12.0-15.0); Lymphocyte # 4.55 X10^3/ul (0.83-4.51); Lymphocyte % 40.1 % (19-41); Mean Corp Hgb Conc 33.1 g/dL (32-36); Mean Corpuscular Hgb 28.9 pg (27.0-32.0); Mean Corpuscular Volume 87.4 fL (81-99); Mean Platelet Vol. 10.1 fl (6.2-12.0); Monocyte# 0.69 X10^3/uL; Monocyte% 6.1 % (0-10); NRBC Flagged by Analyzer 0 % (0-5); Neutrophil # 5.71 X10^3/uL (2.7-7.7); Neutrophil % 50.3 % (47-70); Platelet Count 420 K/mm3 (150-450); RBC Distribution Width CV 13.8 % (11.6-14.6); RBC Distribution Width SD 43.8 fl (35.1-43.9); Red Blood Count 4.94 M/mm3 (4.2-5.4); White Blood Count 11.4 K/mm3 (4.4-11.0)
[2024-08-27 16:29] LABS: ALB/GLOB Ratio 1.2 RATIO (0.9-2.4); AST(SGOT) 14 U/L (15-37); Alanine Aminotransfer ALT/SGPT 20 U/L (13-56); Albumin, Serum 4.2 g/dL (3.2-5.0); Alkaline Phosphatase 69 U/L (45-117); Anion Gap 7 (5-15); BUN 10 mg/dL (7-18); BUN/Creat Ratio 15.7 RATIO (10-20); Calcium,Total 9.6 mg/dL (8.5-10.1); Chloride 105 mmol/L (98-107); Creatinine, Serum 0.64 mg/dL (0.55-1.02); EST Glomerular Filtration Rate 112 mL/min (>60); Est Glom Filt Rate - Afr Amer 136 mL/min (>60); Globulin 3.6 g/dL (2.2-4.2); Glucose 90 mg/dL (74-106); Lipase 35 U/L (13-75); Potassium 3.9 mmol/L (3.5-5.1); Protein, Total 7.8 g/dL (6.4-8.2); Sodium Level 137 mmol/L (136-145)
[2024-08-27 16:53] VITALS: BP 100/65; PULSE 74; RESP 18; O2SAT 99
[2024-08-27 17:10] LABS: Mucous, Urine 0 SEEN /hpf (<or=2+)
[2024-08-27 17:16] LABS: Color, Urine Yellow (Yellow); Glucose, Dipstick Normal (Normal); Ketone-Dipstick Negative (Negative); Leukocyte Esterase-Dipstick 25 /ul (Negative); Nitrite-Dipstick Negative (Negative); Occult Blood-Urine 25 /ul (Negative); Protein-Dipstick Negative (Negative); Urine Bilirubin Dipstick Negative (Negative); Urine Clarity Clear (Clear); Urine Urobilinogen Normal (Normal)
[2024-08-27 17:30] LABS: Bacteria 1+ /hpf (None Seen); Red Blood Cells-Urine 0-5 SEEN /hpf (0-5); Squamous Epithelial Cells - UA 5-10 SEEN /hpf (5-10); White Blood Cells 0-5 SEEN /hpf (0-5)
[2024-08-27] MEDS: fentaNYL 100 MCG/2 ML Ampul 50 MCG IV (17:56)
[2024-08-27 18:00] VITALS: RESP 18
[2024-08-27] MEDS: MethylPREDNISolone 125 MG/2 ML Vial IV (18:25)
== END 2024-08-27 18:33 | disposition home or self-care (01) ==
PROVIDERS: Emergency Provider Emergency Medicine; PCP Family Medicine; Referring Provider Emergency Medicine; Visit Provider Emergency Medicine
DX: R10.11 Right upper quadrant pain (principal); K50.90 Crohn's disease, unspecified, without complications; K80.20 Calculus of gallbladder without cholecystitis without obstruction; F17.210 Nicotine dependence, cigarettes, uncomplicated; K21.9 Gastro-esophageal reflux disease without esophagitis
CPT/HCPCS: 76705; 80053; 81001; 83690; 85025; 96361; 96374; 96375; 99283; A4216; J2405

== ENCOUNTER 2024-09-22 09:17 | Day surgery (SDC) | payer OTHER, SELFPAY ==
[2024-09-22] VITALS (9 sets, daily range): BP systolic 119–137; BP diastolic 54–81; PULSE 75–88; RESP 16–20; TEMP 36.4–36.6; O2SAT 98–100; BMI 28.5
--- NOTE | 2024-09-22 | GALL_PTH ---
PATIENT: ARMIN VIVAS LOC: [facility] U#:[id number] AGE/SX: 38/F ROOM: RE09/22/[address]: Dr. Darlene Johnson MD : 1985 BED: DIS: 09/22/2024 SPEC #: [id number] RECD: 09/22/24 13:24 STATUS: KEVIN LUCIANO #: [id number] MARCIA: 09/22/24 00:[address]: Darlene Johnson DEPT: SURGICAL PATHOLOGY RECD BY: Armaan Cutler ENTERED: 09/22/24 13:24 SP TYPE: JIHAN MILLARD DR: Dr. Azael Lr MD Tissues: Gallbladder, NOS Procedures: Surgery Specimen Level III HEADER OPERATION: Laparoscopic cholecystectomy with IOC PRE-OP DIAGNOSIS: Cholelithiasis TISSUE SUBMITTED: Gallbladder MICROSCOPIC DIAGNOSIS Gallbladder, cholecystectomy: Chronic cholecystitis and cholelithiasis. 09/23/2024 MICROSCOPIC DESCRIPTION Slides are reviewed. GROSS DESCRIPTION Received is one container labeled with the patient's name and designated gallbladder. The specimen consists of a gallbladder measuring 10 cm in length and up to 3 cm in diameter. The external surface is pink-arteaga, smooth and glistening for the most part. A focal area of defect is noted at the fundus of the gallbladder. Most of the stones are present in the container. A few stones are noted in the gallbladder. Focally it is granular, hemorrhagic and contains cautery artifact. The gallbladder contains a small amount of green-yellow mucoid bile. Also present in the container and in the gallbladder are multiple multifaced yellowish-green stones measuring in aggregate 5 x 5 x 2.5 cm and 0.3 to 0.5cm in greatest dimension. The mucosa is focally congested and hemorrhagic. The gallbladder wall measures up to 0.2 cm in thickness. Stacker Driver sections from the gallbladder and the cystic duct are submitted in one cassette. / SJ:mr 09/22/2024 TC:3 CPT: 88444
--- NOTE | 2024-09-22 09:35 | PCM.HP.BLA ---
History and Physical Date of Admission: 09/22/24 Date of Service: 09/10/24 MR#: [id number] Acct: [id number] Name: ARMIN VIVAS Rep #: [id number] : 1985 Provider: Dr. Darlene Johnson MD Age/Sex: 38/F Location: [facility] Status: Signed Intake Vital Signs 08/28/2414:47 09/10/2508:55 Height 5 ft 4 in Weight: 164 lb 2 oz BMI 28.1 BP 112/72 125/73 H Blood Pressure Location Rt brachial Lt brachial Position Sitting Sitting Respiration 18 17 Pulse 68 72 Pulse Source Monitor Monitor Temp 97.2 F L 97.5 F L Temp Source Temporal Temporal Pulse Oximetry (%) 99 98 Oxygen Delivery Method room air room air Intake Visit Reasons: MED CHECK Chief Complaint: med check Is patient in pain?: No Allergies nectarine Allergy (Verified 09/10/24 09:40) Angioedemametoclopramide (From Reglan) Adverse Reaction (Verified 09/10/24 09:40) headache Medications ?Medication ?Instructions ?Recorded ?Confirmed ?Type diphenoxylate-atropine 2.5 1 tab PO 4X/DAY PRN PRN diarrhea 5 11/22/22 09/10/24 Rx mg-0.025 mg tablet (Lomotil) days #20 tabs promethazine 25 mg tablet 25 mg PO Q6H PRN PRN Nausea #10 02/04/23 09/10/24 Rx TABLETS alprazolam 1 mg tablet 1 mg PO TID PRN anxiety 11/15/23 09/10/24 History cetirizine 10 mg tablet 10 mg PO DAILY PRN allergy symptoms 11/15/23 09/10/24 History citalopram 40 mg tablet 20 mg PO QHS 12/26/23 09/10/24 History pantoprazole 40 mg granules 40 mg PO DAILY #30 ea 12/26/23 09/10/24 Rx delayed-release for susp in packet (Protonix) gabapentin 300 mg capsule 300 mg PO QHS 02/10/24 09/10/24 History folic acid 1 mg tablet 1 mg PO QDAY #30 tabs 06/02/24 09/10/24 Rx hyoscyamine sulfate 0.125 mg tablet 0.125 mg PO Q8 dyspepsia #90 tabs 07/21/24 09/10/24 Rx ondansetron 4 mg disintegrating 4 mg PO Q8H PRN PRN Nausea #30 tabs 07/24/24 09/10/24 Rx tablet budesonide 3 mg 9 mg (3 x 3 mg) PO QAM Crohn's #90 08/13/24 09/10/24 Rx capsule,delayed,extended release ea prednisone 20 mg tablet 40 mg (2 x 20 mg) PO DAILY 5 days 08/27/24 09/10/24 Rx #10 tabs sucralfate 1 gram tablet 1 g PO QACHS #56 tabs 08/28/24 09/10/24 Rx PFSH Medical History Hidradenitis suppurativa Wears glasses Wears contact lenses Restless legs Migraine headache History of ulceration Gastric reflux Smoker History of irregular heartbeat Groin abscess Left ovarian cyst Stephanie Tobar infection Colitis Gestational diabetes Crohns disease Depression Anxiety Surgical History History of colonoscopy (~2017) History of esophagogastroduodenoscopy (EGD) (~2017) History of colonoscopy (~2017) History of wisdom tooth extraction Family History Mother Heart disease PacemakerGrandfather DiabetesGrandmother Diabetes Social History household members: spouse Smoking Status: Current every day smoker tobacco type: cigarettes alcohol intake: never substance use type: does not use caffeine: Yes what type of physical activity do you participate in: walking seatbelt use: always do you feel safe at home: Yes additional social history: [email or web address] HPI HPI HPI: 38-year-old female presents to follow-up due to right upper quadrant pain, gallstones, GERD, Crohn's. Patient's has not been able to get her Humira she is having someone come out to go over the medication. Patient has been continuing the Protonix as she is unable to be changed to omeprazole due to interaction with her Celexa. Patient did restart the Carafate and states that her reflux and heartburn has been improved with this. Patient states Saturday she had a rough day with some nausea vomiting diarrhea. Patient states she has more constant right upper quadrant discomfort not directly related to eating. ROS General General: Yes weight change and fatigue; No appetite, colon cancer, breast cancer or weakness HEENT HEENT: No difficulty swallowing, eye injury, eye surgery, swollen glands or hoarseness Endo Endocrine: No thyroid disease, diabetes mellitus, thyroid cancer, Hair loss, heat intolerance or cold intolerance Skin Skin: Yes rash and changing moles Musc Musculoskeletal: Yes back problems; No arthritis, rheumatoid arthritis, gout or joint pain Cardio Cardiovascular: No murmur, pacemaker, heart disease, atrial fibrillation, high blood pressure, heart attack, heart stent, palpitations, shortness of breat with exertion or chest pain Psych Psychiatric: Yes depression and anxiety; No hearing voices Resp Respiratory: No shortness of breath, Yes sleep apnea, No cough, No COPD, No asthma, No emphysema and No wheezing Gastro Gastrointestinal: Yes abdominal pain, Yes nausea or vomiting, Yes diarrhea, No constipation, Yes blood in stool, Yes acid reflux, Yes hemorrhoids, Yes ulcers, Yes gallbladder problem and Yes black,tarry stools Bill Hematologic: No blood thinners, No blood disorders, No bleeding, No anemia and No blood clots Neuro Neurologic: No numbness, No tingling and No weakness Exam Const General: cooperative, healthy appearing, comfortable and no acute distress [facility] Head: normocephalic and atraumatic Neck Neck: supple Resp Effort & Inspection: normal respiratory effort Cardio Rate: regular rate GI Inspection: non-distended Palpation: soft and tender in the epigastrum, in the RLQ and in the RUQ Skin General: no rashes or lesions noted Neuro General: CN's II-XI intact bilaterally Extrem General: normal to inspection Psych Mental Status: mental status grossly normal Attitude: cooperative Assessment and Plan Assessment and Plan (1) Cholelithiasis: Status: Inactive (2) Right upper quadrant abdominal pain: Status: Inactive (3) GERD (gastroesophageal reflux disease): Status: Acute (4) Crohn's disease: Status: Acute Qualifiers: Gastrointestinal tract location: unspecified location Digestive disease complication type: without complication Qualified Code(s): K50.90 - Crohn's disease, unspecified, without complications Comment: no meds, remission Plan Discussed with patient would recommend continuing the Protonix as well as the Carafate. Discussed that likely her right lower quadrant abdominal pain is more we likely related to the Crohn's would recommend starting the Humira?will patient hold on the Humira until after the surgery. Patient's right upper quadrant pain may be due to gallstones or possible biliary dyskinesia and is more of a constant discomfort. Discussed with patient that we could remove her gallbladder but I would not guarantee that this would resolve all of her abdominal symptoms. Patient is agreeable with plan. Reviewed the anatomy with the patient and discussed the procedure: laparoscopic cholecystectomy with possible cholangiograms, possible open. Review risks including but not limited to bleeding, infection, hernia, bile leak, retained gallstones requiring another procedure ERCP- Endoscopic Retrograde Cholangiopancreatography, injury to another organ (bile ducts, common bile duct, small bowel, etc.) and conversion to an open procedure. All questions were answered. Darlene Johnson M.D. Pager: [phone] [facility] [address] [place] [address], [address] [place] [id number] Office: [phone] Coding Level of Care Code Off vis,est,level 4 Diagnoses Cholelithiasis K80.20 Right upper quadrant abdominal pain R10.11 GERD (gastroesophageal reflux disease) K21.9 Crohn's disease without complication, unspecified gastrointestinal tract location K50.90 Gastrointestinal tract location: unspecified location Digestive disease complication type: without complication 09/10/24 1107 <Electronically signed by Darlene Johnson MD> Date Darlene Johnson MD
[2024-09-22] MEDS: 0.9% Normal Saline (1000mL) 1,000 ML 15 ML IV (09:41)
[2024-09-22 09:46] LABS: Internal QC Validated? YES +Cl - CLEAR BKGD; Pregnancy, Urine Negative Negative
--- NOTE | 2024-09-22 09:47 | PRE.ANES_ITS ---
ASA Classification* ASA Classification ASA Classification: 2 Assessment & Plan Anesthesia* Anesthesia Assessment Anesthesia Assessment: Discussed sedation and/or anesthesia options, risks, benefits, and alternatives with patient/parents/legal guardian/POA. Questions invited. The patient/parents/legal guardian/POA seems to understand and agrees to proceed with anesthesia plan. Reviewed the physical assessment, medical history, allergy history and patient home medications list prior to surgery/procedure/anesthetic and documented any changes. Performed airway and anesthesia risk assessments. Anesthesia Type Anesthesia Type: General History Source History Obtained from:: Patient and Chart Anesthesia Focused Assessment* Temperature: 97.8 F Pulse Rate: 85 Blood Pressure: 119/60 Respiratory Rate: 18 Pulse Ox: 99 Oxygen Delivery Method: Room Air Airway Assessment Mouth opens: 2 cm Mallampati Score: IV Teeth Condition: Caps/Crowns (Couple caps on the molars left side. They are tight.) and Chipped/Broken (Chipped tooth #9.) Neck Range of motion (ROM): Full ROM Focused Labs Anesthesia Preop lab: CBC WBC 11.4 K/mm3 (4.4-11.0) H 08/27/24 15:22 RBC 4.94 M/mm3 (4.2-5.4) 08/27/24 15:22 Hgb 14.3 g/dL (12.0-15.0) 08/27/24 15:22 Hct 43.2 % (37-47) 08/27/24 15:22 Plt Count 420 K/mm3 (150-450) 08/27/24 15:22 CHEMISTRY Potassium 3.9 mmol/L (3.5-5.1) 08/27/24 15:22 Sodium 137 mmol/L (136-145) 08/27/24 15:22 Magnesium 2.2 mg/dL (1.6-2.6) 11/22/22 02:40 BUN 10 mg/dL (7-18) 08/27/24 15:22 Creatinine 0.64 mg/dL (0.55-1.02) 08/27/24 15:22 Glucose 90 mg/dL (74-106) 08/27/24 15:22 POC Glucose 89 mg/dL (70-110) 08/14/19 04:42 TSH 2.040 uIU/mL (0.358-3.740) 06/02/24 10:17 COAG HCG, Quant 9215 mIU/mL (1-3) H 03/08/19 11:25 Urine Test Negative Negative 07/10/24 12:02 Pre-Assessment Diagnosis/Proposed Procedure Planned Operative Procedure(s): LAP CHOLEY WITH GRAMS Anesthesia History Anesthesia History - spiritual care coordinator: Anesthesia History - spiritual care coordinator Hx Hospitalization No 09/14/24 09:16 Any Problems With Anesthesia No 09/14/24 09:16 Cholinesterase deficiency No 09/14/24 09:16 You/Your Family Experience No 09/14/24 09:16 fever (hyperthermia) with Relationship Recent Exposure to Contagious No 09/22/24 09:37 Disease Does patient have nerve No 09/14/24 09:16 stimulator Patient instructed to have device shut off --Does patient have Pacemaker No 09/22/24 09:37 or ICD? When Was Last Pacemaker Check QUESTION #4 FULL TEXT: You/Your Family Experience fever (hyperthermia) with Anesthesia Last Oral Intake Last Oral intake: Last Oral Intake NPO since 21:30 09/22/24 09:37 Meds taken in AM with sips of No 09/22/24 09:37 water? Meds patient instructed to take am of surgery PONV PONV - spiritual care coordinator: PONV - spiritual care coordinator Female Yes 09/14/24 09:16 HX of Motion Sickness No 09/14/24 09:16 HX of N/V After Surgery No 09/14/24 09:16 Non-Smoker No 09/14/24 09:16 Duration of Surgery greater No 09/14/24 09:16 than 60 minutes Number of Risk Factors 1 09/14/24 09:16 PONV Score Low Risk 09/14/24 09:16 Height & Weight Height & Weight: Anesthesia: Height & Weight Height 5 ft 4 in 09/22/24 09:37 Weight: 75.5 kg 09/22/24 09:37 Body Mass Index (BMI) 28.5 09/22/24 09:37 Respiratory Assessment Respiratory Assessment - spiritual care coordinator: Respiratory Tract Infection Hx - spiritual care coordinator Hx Respiratory Tract Infection No 09/14/24 09:16 STOP Sleep Apnea STOP Sleep Apnea - spiritual care coordinator: STOP Sleep Apnea - spiritual care coordinator Hx Hypertension No 09/14/24 09:16 Hx Sleep Apnea No 09/14/24 09:16 CPAP BIPAP Do you snore loudly (louder No 09/14/24 09:16 than talking or can be heard Do you often feel tired/ No 09/14/24 09:16 fatigued/ sleepy during daytime? Has anyone observed you stop No 09/14/24 09:16 breathing during sleep? STOP Results Negative 09/14/24 09:16 QUESTION #5 FULL TEXT : Do you snore loudly (louder than talking or can be heard through closed doors)? Tobacco Use History Tobacco Use History - spiritual care coordinator: Tobacco Use History - spiritual care coordinator Tobacco Use Non-smoker 01/01/21 10:22 Smoking Status Current every day smoker 09/14/24 09:16 Hx Tobacco Use Yes 09/14/24 09:16 Years Smoking Packs Smoked per Day Smoking Cessation Date was within the last 15 years Hx Smoking Cessation Date Hx Smoking Cessation No 09/14/24 09:16 Counseling Any additional information?: Yes Smoking Status: Current every day smoker (Patient smoked today.) Hematologic Medial History Hematologic Hx - spiritual care coordinator: Hematologic Medical Hx - senior hr generalist Hx of Blood Transfusion No 09/14/24 09:16 Hx of Transfusion in last 3 No 09/14/24 09:16 Months Date of Last Transfusion (if within last 3 months) Ever experience any problems No 09/14/24 09:16 with transfusion(s)? Specify any problems Hx of Preganancy in last 3 No 09/14/24 09:16 Months Nurse Filling Out Transfusion DSCHRIBER 09/14/24 09:16 & Questions: Date: 09/14/24 09/14/24 09:16 Time: 09:17 09/14/24 09:16 Patient unable to answer at this time (ie. confused, unrespo /Reproduction History /Reproductive History - spiritual care coordinator: /Reproductive Hx- spiritual care coordinator Hx Now No 09/14/24 09:16 Gestational Age (in weeks): EDC: Hx Hx Para Hx Section SAB No 09/14/24 09:16 Active Medications Active Medications: Current Medications Generic Name Dose Route Start Last Admin Trade Name Freq PRN Reason Stop Dose Admin Cefazolin Sodium 2 gm/ N/A 20 mls @ 400 mls/hr 09/22/24 11:00 IV 09/22/24 11:02 X1 ONE Sodium Chloride 1,000 mls @ 15 mls/hr 09/22/24 09:30 09/22/24 09:41 IV 09/27/24 22:49 15 mls/hr .Q48H SHELLEY Administration Protocol [facility] Medical History History of steroid therapy Dietary restriction Hidradenitis suppurativa Wears glasses Wears contact lenses History of ulceration Gastric reflux Smoker History of irregular heartbeat Groin abscess Left ovarian cyst Stephanie Tobar infection Colitis Gestational diabetes Crohns disease Depression Anxiety Home Medications ?Medication ?Instructions ?Recorded ?Last Taken ?Type diphenoxylate-atropine 2.5 1 tab PO 4X/DAY PRN PRN diarrhea 5 11/22/22 Unknown Rx mg-0.025 mg tablet (Lomotil) days #20 tabs promethazine 25 mg tablet 25 mg PO Q6H PRN PRN Nausea #10 02/04/23 Unknown Rx TABLETS alprazolam 1 mg tablet 1 mg PO TID PRN anxiety 11/15/23 07/09/24 History cetirizine 10 mg tablet 10 mg PO DAILY PRN allergy symptoms 11/15/23 07/09/24 History citalopram 40 mg tablet 20 mg PO QHS 12/26/23 07/09/24 History pantoprazole 40 mg granules 40 mg PO DAILY #30 ea 12/26/23 07/09/24 Rx delayed-release for susp in packet (Protonix) folic acid 1 mg tablet 1 mg PO QDAY #30 tabs 06/02/24 07/02/24 Rx budesonide 3 mg 9 mg (3 x 3 mg) PO QAM Crohn's #90 08/13/24 Unknown Rx capsule,delayed,extended release ea sucralfate 1 gram tablet 1 g PO QACHS #56 tabs 08/28/24 Unknown Rx ondansetron 4 mg disintegrating 4 mg PO Q8H PRN PRN Nausea #30 tabs 09/10/24 Unknown Rx tablet Allergy/AdvReac Type Severity Reaction Status Date / Time nectarine Allergy Angioedema Verified 09/22/24 09:36 metoclopramide (From Reglan) AdvReac headache Verified 09/22/24 09:36 Family History Mother Heart disease Pacemaker Grandfather Diabetes Grandmother Diabetes Surgical History History of esophagogastroduodenoscopy (EGD) (~2018) History of colonoscopy (~2017) History of wisdom tooth extraction Social History household members: spouse Smoking Status: Current every day smoker tobacco type: cigarettes alcohol intake: never substance use type: does not use caffeine: Yes what type of physical activity do you participate in: walking seatbelt use: always do you feel safe at home: Yes additional social history: [employer] Review of Systems (Anesthesia) ROS Narrative System reviewed and no additional complaints, except as documented.
--- NOTE | 2024-09-22 09:54 | EKG12_ITS ---
Test Reason : PREOP Blood Pressure : */* mmHG Vent. Rate : 76 BPM Atrial Rate : 76 BPM P-R Int : 142 ms QRS Dur : 84 ms QT Int : 388 ms P-R-T Axes : 30 67 51 degrees QTcB Int : 436 ms Normal sinus rhythm Normal ECG Confirmed by DIOGENES CLEMONS, PUJA ([id number]), supervising editor news reel JEANNIE MESA [id number]) on 09/29/2024 6:24:44 AM Referred By: Darlene Johnson Confirmed By: PUJA SHETTY MD
--- NOTE | 2024-09-22 10:00 | RAD_ITS ---
STUDY: INTRAOPERATIVE CHOLANGIOGRAM. REASON FOR EXAM: Female, 38 years old. LAP BRONWYN W/ IOC FLUOROSCOPY TIME (if supplied): ( 6 seconds ) minutes/seconds. 2.05 mGy TECHNIQUE: An intraoperative cholangiogram was performed by the surgeon. COMPARISON: None. FINDINGS: The visualized intrahepatic and extra hepatic biliary ducts are unremarkable. RAD/Cholangiogram/ O R,Initial IMPRESSION: Unremarkable intraoperative cholangiogram. Electronically Signed: Leo Ruiz MD at 13:54 EST ,
[2024-09-22] MEDS: Cefazolin 2 GM in Syringe IV (10:07)
[2024-09-22] MEDS: Bupivacaine Mpf 0.5% 30 ML VIAL (11:05)
--- NOTE | 2024-09-22 11:12 | PCM.OPRPT ---
Operative Report (Standard) Operative Information Date of Procedure: 09/22/24 Pre-Operative Diagnosis: right upper quadrant pain, cholelithiasis Post-Operative Diagnosis: Same Surgery/Procedure Performed: Laparoscopic cholecystectomy with cholangiograms cardroom worker: Yes Nut Blanker Operator: Logan Long Tasks completed by talent acquisition assistant: Opening & closing and Retracting Type of Anesthesia: General/Supplemental RN Documented Start/Stop Times: Operation Date: 09/22/24 09:30 Case Time Into Pre-Op 09/22/24 09:25 Out of Pre-Op 09/22/24 09:57 Anesthesia Start 09/22/24 10:02 Into Room 09/22/24 10:02 Procedure Start 09/22/24 10:18 Procedure End 09/22/24 11:15 Into Recovery 09/22/24 11:20 Anesthesia End 09/22/24 11:21 Out of Room 09/22/24 11:21 Into Phase II Recovery 09/22/24 11:48 Out of Recovery 09/22/24 11:48 Out of Phase II 09/22/24 12:30 Procedure Start Time: 10:18 Procedure Stop Time: 11:15 Select all DRAINS/GRAFTS/IMPLANTS that apply: None Special Medications: Ancef 2 g IV x 1 Estimated Blood Loss: < 10 CC Specimen collected: Yes Description of specimen(s) removed: Gallbladder and gallstones Description of surgery: Indications: this is a 38 year-old female who developed abdominal pain/nausea/vomiting and on workup was found to have cholelithiasis, with a normal common bile duct. Laparoscopic cholecystectomy was elected. Description procedure: The patient was placed on operating table in supine position. A timeout was completed verifying correct patient, procedure, site, position and special equipment prior to beginning procedure. General Anesthesia was induced. The abdomen was prepped and draped in usual sterile fashion. An incision was made in the natural skin line above the umbilicus. The fascia was elevated and incised. The peritoneum was elevated and incised. Entry into the peritoneum was confirmed visually and no bowel was noted in the vicinity of the incision. Velazquez trocar was placed. The abdomen was insufflated with carbon dioxide to a pressure of 12-15 mmHg. Patient tolerated insufflation well. The laparoscope was then inserted and abdomen inspected. No injuries from initial trocar placement were noted. Additional trochars were then inserted in the following locations 5 mm trocar in the epigastrium and 2 more 5 mm trochars along the right costal margin. The abdomen was inspected no abnormalities were found. The table is placed in reverse Trendelenburg position with the right side up. The dome of the gallbladder was grasped with atraumatic grasper passed through the lateral port and retracted over the dome of the liver. Infundibulum was then grasped with atraumatic grasper through the midclavicular port and retracted to the right lower quadrant. This maneuver exposed Calot's triangle. The peritoneum overlying the gallbladder infundibulum was then incised and cystic duct and artery identified and circumferentially dissected. Santiago catheter was used for cholangiograms. The cholangiogram showed good filling of the common bile duct into the duodenum with no filling defects, good filling of the right and left bile ducts as well. The cystic duct and artery were then doubly clipped and divided close to the gallbladder. The gallbladder then dissected from its peritoneal attachments by electrocautery. Hemostasis was checked and the gallbladder and contained stones were removed using the endoscopic retrieval bag through the umbilical port. The gallbladder is passed off table as specimen. The gallbladder fossa was irrigated with saline and hemostasis obtained. There is no evidence of bleeding from the gallbladder fossa or cystic artery leakage of bile from the cystic duct stump. Secondary trochars removed under direct vision. No bleeding was noted the trocar sites. The laparoscope was withdrawn and umbilical trocar removed. The abdomen was allowed to collapse. The fascia of the 12 mm trocar was closed with a [id number] 0 Vicryl suture. The skin was closed with sutures of 4-0 Monocryl and Steri-Strips. The patient was extubated. The patient tolerated procedure well and was taken to the postanesthesia care unit in stable condition. Surgical Findings: Cholangiograms normal Complications Complications: No
--- NOTE | 2024-09-22 11:14 | DCINST_ITS ---
Discharge Instructions Diet Discharge Diet: Light diet - advance as tolerated Activity Discharge Activity: May Not Drive (while taking narcotic pain medications.) May shower in (days): 1 Lifting Restrictions: no lifting >20 lbs x 2 wks, no strenuous exercise for 4 wks Dressing / Incision Call your doctor if your incision/area has: Continuous Slow Oozing, Sudden Increased Bleeding, Increased Pain/ Swelling, Increased Redness, Foul Smelling Discharge and Swelling at the incision site Call your doctor if you observe: Fever of 101 or Higher Remove Dressing in: 2 days Cleanse incision/area with: Soap & Water Additional Dressing/Incision Instructions:: Steri-Strips will fall off in 7 to 10 days, if they do not fall off okay to remove after 10 days. Follow Up Care Please Follow Up With: Darlene Johnson MD When: Call the office for a follow-up appointment 2 weeks; after 5 PM and on the weekends call [phone] with any concerns. Test Results: Test results from this visit will be discussed in further detail at your follow- up appointment, if applicable. Discharge Plan Admission Attending Provider: Darlene Johnson Primary Care Provider: Azael Lr Instructions Print Language: Latvian Discharge Orders/Prescriptions Prescriptions: New oxycodone 5 mg capsule 5 mg PO Q6H PRN (Reason: pain) 3 Days Qty: 12 0RF Continued alprazolam 1 mg tablet 1 mg PO TID PRN (Reason: anxiety) cetirizine 10 mg tablet 10 mg PO DAILY PRN (Reason: allergy symptoms) folic acid 1 mg tablet 1 mg PO QDAY Qty: 30 2RF budesonide 3 mg capsule,delayed,extend.release 9 mg PO QAM Qty: 90 0RF sucralfate 1 gram tablet 1 g PO QACHS Qty: 56 1RF Rx Instructions: Take an hour before meals and at bedtime diphenoxylate-atropine [Lomotil] 2.5-0.025 mg tablet 1 tab PO 4X/DAY PRN PRN (Reason: diarrhea) 5 Days Qty: 20 0RF promethazine 25 mg tablet 25 mg PO Q6H PRN PRN (Reason: Nausea) Qty: 10 0RF citalopram 40 mg tablet 20 mg PO QHS pantoprazole [Protonix] [address] for susp in packet 40 mg PO DAILY Qty: 30 0RF ondansetron 4 mg tablet,disintegrating 4 mg PO Q8H PRN PRN (Reason: Nausea) Qty: 30 0RF Referrals / Follow Up: Azael Lr MD [Primary Care Provider] - Disposition Disposition (needs filled in before D/C Order can be placed): Home, Self Care
--- NOTE | 2024-09-22 11:25 | PCM.POST.ANE ---
Anesthesia: Postop Eval I Current Vital Signs Temperature: 97.7 F Pulse Rate: 82 Blood Pressure: 131/75 Respiratory Rate: 18 Pulse Ox: 98 Oxygen Delivery Method: Room Air Assessment Airway patent: Yes Spontaneous unlabored respirations: Yes Mental status: Awake and Calm nausea: Yes Vomiting: No Anesthesia Complication: No Fluid Hydration Crystalloid volume administer (ml): 700 Total IV fluid infused: 700 Progress Note Anesthesia document: Postop Eval 1 completed: Yes
[2024-09-22] MEDS: oxyCODONE 5 MG Tablet PO (12:15)
--- NOTE | 2024-09-22 20:17 | POSTOPAN2_ITS ---
Anesthesia Postop Eval I Sum Postop Eval Completion status Anesthesia document: Postop Eval 1 completed: Yes Anesthesia Postop Eval I Summary Anesthesia Postop Eval I Summary: Anesthesia Postop Eval I: Assessment Summary Airway patent Yes 09/22/24 11:26 EMERGENCY DEPARTMENT RN.TARUNOBEvita Spontaneous unlabored Yes 09/22/24 11:26 EMERGENCY DEPARTMENT RN.AYANNA respirations Mental status Awake,Calm 09/22/24 11:26 EMERGENCY DEPARTMENT RN.TARUNOBEvita nausea Yes 09/22/24 11:26 EMERGENCY DEPARTMENT RN.AYANNA Vomiting No 09/22/24 11:26 EMERGENCY DEPARTMENT RN.AYANNA Anesthesia Postop Eval I: Fluid Summary Crystalloid volume administer 700 09/22/24 11:26 EMERGENCY DEPARTMENT RN.TARUNOBY (ml) Colloids volume administered ( ml) Blood Product volume administered (ml) Total IV fluid infused 700 09/22/24 11:26 EMERGENCY DEPARTMENT RN.AYANNA Anesthesia Postop Eval I: Summary Notes Anesthesia Complication No 09/22/24 11:26 EMERGENCY DEPARTMENT RN.AYANNA Anesthesia Complication Comment: Post-operative progress note Anesthesia: Postop Eval II Evaluation Mental status: Awake and Calm Pain Level: 1 nausea: No Vomiting: No Complications Anesthesia Complication: No
--- NOTE | 2024-09-22 20:17 | PCM.POSTANE2 ---
Anesthesia Postop Eval I Sum Postop Eval Completion status Anesthesia document: Postop Eval 1 completed: Yes Anesthesia Postop Eval I Summary Anesthesia Postop Eval I Summary: Anesthesia Postop Eval I: Assessment Summary Airway patent Yes 09/22/24 11:26 MALE IMPERSONATOR.[email or web address] Spontaneous unlabored Yes 09/22/24 11:26 MALE IMPERSONATOR.AYANNA respirations Mental status Awake,Calm 09/22/24 11:26 MALE IMPERSONATOR.TARUNOBEvita nausea Yes 09/22/24 11:26 MALE IMPERSONATOR.AYANNA Vomiting No 09/22/24 11:26 MALE IMPERSONATOR.AYANNA Anesthesia Postop Eval I: Fluid Summary Crystalloid volume administer 700 09/22/24 11:26 MALE IMPERSONATOR.TARUNOBY (ml) Colloids volume administered ( ml) Blood Product volume administered (ml) Total IV fluid infused 700 09/22/24 11:26 MALE IMPERSONATOR.AYANNA Anesthesia Postop Eval I: Summary Notes Anesthesia Complication No 09/22/24 11:26 MALE IMPERSONATOR.AYANNA Anesthesia Complication Comment: Post-operative progress note Anesthesia: Postop Eval II Evaluation Mental status: Awake and Calm Pain Level: 1 nausea: No Vomiting: No Complications Anesthesia Complication: No
== END 2024-09-22 12:30 | disposition home or self-care (01) ==
LOC: SDC 09:20 → AC 09:21
PROVIDERS: Anesthesiology; PCP Family Medicine; Referring Provider Surgery; Visit Provider Surgery
PROC: (CPT 47610; principal; 2024-09-22 09:10)
DX: K80.10 Calculus of gallbladder with chronic cholecystitis without obstruction (principal); K50.90 Crohn's disease, unspecified, without complications; K21.9 Gastro-esophageal reflux disease without esophagitis; F32.A Depression, unspecified; F41.9 Anxiety disorder, unspecified; F17.210 Nicotine dependence, cigarettes, uncomplicated; Z79.899 Other long term (current) drug therapy
CPT/HCPCS: 47563; 00790; 74300; 76000; 81025; 88304; 93005; J2405

== ENCOUNTER 2024-10-09 11:47 | Emergency (ER) | payer OTHER, SELFPAY ==
[2024-10-09 11:48] VITALS: BP 123/111; PULSE 84; RESP 18; TEMP 36.7; O2SAT 99; BMI 27.6
[2024-10-09 12:18] LABS: Absolute Lymphocyte Count 3.58 X10^3/uL (0.83-4.51); Absolute Neutrophil Count 5.3 X10^3/uL (2.0-7.7); Basophil# 0.06 X10^3/uL; Basophil% 0.6 % (0-1); Eosinophil# 0.18 X10^3/uL; Eosinophils% 1.9 % (0-5); Hematocrit 42.5 % (37-47); Lymphocyte # 3.58 X10^3/ul (0.83-4.51); Lymphocyte % 36.9 % (19-41); Mean Corp Hgb Conc 32.9 g/dL (32-36); Mean Corpuscular Hgb 28.3 pg (27.0-32.0); Mean Platelet Vol. 9.3 fl (6.2-12.0); Monocyte# 0.53 X10^3/uL; Monocyte% 5.5 % (0-10); NRBC Flagged by Analyzer 0 % (0-5); Neutrophil # 5.32 X10^3/uL (2.7-7.7); Neutrophil % 54.8 % (47-70); Platelet Count 424 K/mm3 (150-450); RBC Distribution Width CV 13.3 % (11.6-14.6); RBC Distribution Width SD 41.8 fl (35.1-43.9); Red Blood Count 4.94 M/mm3 (4.2-5.4); White Blood Count 9.7 K/mm3 (4.4-11.0)
[2024-10-09 12:20] LABS: Internal QC Validated? YES +Cl - CLEAR BKGD; Pregnancy, Serum, hCG Quali. NEGATIVE Negative
[2024-10-09 12:46] LABS: ALB/GLOB Ratio 1.1 RATIO (0.9-2.4); AST(SGOT) 12 U/L (15-37); Alanine Aminotransfer ALT/SGPT 19 U/L (13-56); Albumin, Serum 4.1 g/dL (3.2-5.0); Alkaline Phosphatase 80 U/L (45-117); Anion Gap 8 (5-15); BUN 19 mg/dL (7-18); BUN/Creat Ratio 28.6 RATIO (10-20); Calcium,Total 9.4 mg/dL (8.5-10.1); Chloride 107 mmol/L (98-107); Creatinine, Serum 0.66 mg/dL (0.55-1.02); EST Glomerular Filtration Rate 106 mL/min (>60); Est Glom Filt Rate - Afr Amer 129 mL/min (>60); Estimated Creatinine Clearance 115.39 ml/min; Globulin 3.6 g/dL (2.2-4.2); Glucose 91 mg/dL (74-106); Potassium 3.8 mmol/L (3.5-5.1); Protein, Total 7.7 g/dL (6.4-8.2); Sodium Level 136 mmol/L (136-145)
[2024-10-09 14:12] VITALS: BP 128/89; PULSE 78; RESP 16; O2SAT 99
[2024-10-09 14:20] LABS: Lipase 41 U/L (73-393)
[2024-10-09 14:31] LABS: Bacteria 0 SEEN /hpf (None Seen)
--- NOTE | 2024-10-09 14:31 | CT_ITS ---
EXAM: ABDOMEN/PELVIS W IV CONT ONLY CLINICAL HISTORY: Abdominal pain. Recent lap cholecystectomy 2 weeks ago. 3 days nausea. Crohn's disease. COMPARISON: 08/19/2024. TECHNIQUE: Helical CT images of the abdomen and pelvis were performed utilizing routine protocol with intravenous contrast material. Multiplanar reformations were obtained. Dose reduction techniques were used including intermediate exposure control (AEC),iterative reconstruction technique, and/or mA and/or KV dose adjustments based on patient's size. FINDINGS: Calcified granuloma noted at the left lung base. Trace pericardial fluid. No obvious acute abnormality of the liver, spleen, pancreas, or adrenal glands. Status post cholecystectomy. Minimal intrahepatic biliary ductal dilatation. No acute obstructive urinary collecting system calculus. No urinary bladder wall thickening. No hydronephrosis. No acute bowel obstruction. No pneumoperitoneum. No CT evidence of acute colonic diverticulitis. No CT evidence of acute appendicitis. No lymphadenopathy. 4.3 cm right adnexal cystic structure likely ovarian with small cyst/follicles. No significant free fluid in the abdomen and pelvis. No CT evidence of acute osseous abnormality. CT/Abdomen/Pelvis W IV Cont ONLY IMPRESSION: No CT evidence of acute intra- abdominal pathology. Reading Location: [id number]
--- NOTE | 2024-10-09 14:33 | ED.VIS.GI ---
HPI HPI - GI History of Present Illness Chief Complaint: Abd Pain Informant: patient Narrative Narrative: Patient is a 38-year-old female with history of Crohn's disease, hidradenitis suppurativa, depression, anxiety and recent laparoscopic cholecystectomy performed on 09/22/2024 due to symptomatic cholelithiasis presenting with worsening right upper quadrant abdominal pain, nausea, vomiting as well as diarrhea. She states she has had a cold for about a week. She states on Saturday, 2 days ago she developed some nausea vomiting and diarrhea. States her stool is straight liquid. Does not report any blood in her vomit or her stool. Mildly yesterday and then today she developed pain over her right flank that radiates to her right upper quadrant and towards her umbilicus. The pain is severe and unrelenting. She denies any fevers. She tried taking 2 Tylenol, 2 ibuprofen and 1 Zofran at 9 AM with no relief of her symptoms. She states her entire abdomen hurts now. She notes that she has not been taking any prescription pain medicine for postsurgical pain for the past week and had been doing well up until 2 days ago. No other complaints or concerns reported this time. Denies any history of any other abdominal surgeries. [facility] Medical History History of steroid therapy Dietary restriction Hidradenitis suppurativa Wears glasses Wears contact lenses History of ulceration Gastric reflux Smoker History of irregular heartbeat Groin abscess Left ovarian cyst Stephanie Tobar infection Colitis Gestational diabetes Crohns disease Depression Anxiety Home Medications ?Medication ?Instructions ?Recorded ?Last Taken ?Type diphenoxylate-atropine 2.5 1 tab PO 4X/DAY PRN PRN diarrhea 5 11/22/22 Unknown Rx mg-0.025 mg tablet (Lomotil) days #20 tabs promethazine 25 mg tablet 25 mg PO Q6H PRN PRN Nausea #10 02/04/23 Unknown Rx TABLETS alprazolam 1 mg tablet 1 mg PO TID PRN anxiety 11/15/23 07/09/24 History cetirizine 10 mg tablet 10 mg PO DAILY PRN allergy symptoms 11/15/23 07/09/24 History citalopram 40 mg tablet 20 mg PO QHS 12/26/23 07/09/24 History pantoprazole 40 mg granules 40 mg PO DAILY #30 ea 12/26/23 07/09/24 Rx delayed-release for susp in packet (Protonix) folic acid 1 mg tablet 1 mg PO QDAY #30 tabs 06/02/24 07/02/24 Rx budesonide 3 mg 9 mg (3 x 3 mg) PO QAM Crohn's #90 08/13/24 Unknown Rx capsule,delayed,extended release ea sucralfate 1 gram tablet 1 g PO QACHS #56 tabs 08/28/24 Unknown Rx adalimumab 80 mg/0.8 mL See Rx Instructions subcut 09/22/24 Unknown Rx subcutaneous pen kit (Humira(CF) .COMPLEX #3 ea Pen Crohn's-Ulc Colitis-Hid Sup Strt) ondansetron 4 mg disintegrating 4 mg PO Q8H PRN PRN Nausea #10 tabs 09/22/24 Unknown Rx tablet oxycodone 5 mg capsule 5 mg PO Q6H PRN pain 3 days #10 09/25/24 Unknown Rx caps oxycodone 5 mg tablet 5 mg PO Q8H PRN pain 3 days #10 10/09/24 Unknown Rx tabs Allergy/AdvReac Type Severity Reaction Status Date / Time nectarine Allergy Angioedema Verified 10/09/24 11:50 metoclopramide (From Reglan) AdvReac headache Verified 10/09/24 11:50 Family History Mother Heart disease Pacemaker Grandfather Diabetes Grandmother Diabetes Surgical History History of esophagogastroduodenoscopy (EGD) (~2018) History of colonoscopy (~2017) History of wisdom tooth extraction Social History household members: spouse Smoking Status: Current every day smoker tobacco type: cigarettes alcohol intake: never substance use type: does not use caffeine: Yes what type of physical activity do you participate in: walking seatbelt use: always do you feel safe at home: Yes additional social history: [employer] ROS ROS ED Constitutional Constitutional ED: Denies chills or fever(s) Cardiovascular Cardiovascular: Denies chest pain Respiratory/Chest Respiratory/Chest: Denies cough or dyspnea Gastrointestinal Gastrointestinal: Reports abdominal pain, diarrhea, nausea and vomiting; Denies melena Genitourinary Genitourinary ED: Denies dysuria Musculoskeletal Musculoskeletal: Denies arthralgias or myalgias Integumentary Denies rash Neurologic Neurologic: Denies weakness Psychiatric Psychiatric: Reports anxiety EXAM Physical Exam Const Vital Signs: 10/09/24 11:48 10/09/24 14:12 10/09/24 16:00 Temperature 98.0 F Temperature Source Oral Pulse Rate 84 78 85 Respiratory Rate 18 16 Blood Pressure 123/111 H 128/89 H 128/78 H Blood Pressure Mean 115 102 94 Pulse Ox 99 99 99 Oxygen Delivery Method Room Air 10/09/24 18:00 10/09/24 19:01 Temperature 98.3 F Temperature Source Pulse Rate 68 68 Respiratory Rate 16 16 Blood Pressure 120/78 120/78 Blood Pressure Mean 92 92 Pulse Ox 98 98 Oxygen Delivery Method Positive well nourished and well developed General Appearance ED: well developed and NAD; Negative for pallor HEENT Reports moist mucous membranes Eyes PERRL General Eye ED: Negative for scleral icterus Neck supple Resp normal respiratory effort and clear to auscultation bilaterally Cardio regular rate and regular rhythm GI GI Narrative: Patient has diffuse abdominal tenderness but it is worse in the right upper quadrant Auscultation: hypoactive bowel sounds Palpation: soft, tender epigastric and RUQ and guarding RUQ; Negative for rigid or rebound tenderness present Back/Spine General Back: CVA tenderness right Extremity full ROM General Extremety ED: Negative for edema General Extremity: Negative for edema Neuro Sensorium / Orientation: alert, oriented to person, oriented to place and oriented to time Motor Exam: Negative for general weakness Psych mental status grossly normal and thought process normal Mood & Affect: anxious Skin Skin Narrative: Healing laparoscopic surgical incisions, nontender, no associated erythema or drainage. General Skin Exam: Negative for jaundice or pallor MDM MDM MDM Narrative Medical decision making narrative: Patient evaluated for right upper quad abdominal pain in the setting of recent cholecystitis. She also is a history of Crohn disease. Differential includes Crohn's flare, gastroenteritis, choledocholithiasis, postoperative infection/complication, influenza, renal colic, dehydration and electrolyte derangement. Protocol labs obtained and lipase as well as CT abdomen pelvis is added on for evaluation. Patient's vital signs are normal in the emergency room. Is given IV Dilaudid, Zofran and IV fluids for symptom control. Operative report from 09/22/2024 reviewed?patient intraoperative cholangiogram which showed good filling of the common bile duct into the duodenum with no filling defects and good filling at the right and left bile ducts as well. Patient had uncomplicated cholecystectomy. Workup largely normal. Normal CBC, CMP, urinalysis and lipase. CT abdomen pelvis not show any acute process. Discussed with general surgery since she did have recent surgery who questions if this could be related to incisional pain from her vomiting/diarrhea and possibly related to her Crohn's. Case discussed with Dr. Alva, GI. At this time he recommends her to is doing Bentyl and does not think she requires steroids or further treatment for Crohn's flare. Can follow-up in the office. Patient will be given a short course of oxycodone for further pain control. He is agreeable with this. Discussed with patient. She clinically appears improved. Will be discharged home with a short course of oxycodone. She states that she has been taking the max dose of Bentyl and she is encouraged to continue this. Given return precautions. Discharged home in stable condition. Lab Data Attestation: I reviewed the patient's lab results. Labs: Laboratory Results - last 24 hr 10/09/24 10/09/24 12:03 14:23 WBC 9.7 RBC 4.94 Hgb 14.0 Hct 42.5 MCV 86.0 MCH 28.3 MCHC 32.9 RDW Std Deviation 41.8 RDW Coeff of Dimitrios 13.3 Plt Count 424 MPV 9.3 Immature Gran % (Auto) 0.300 Neut % (Auto) 54.8 Lymph % (Auto) 36.9 [place] % (Auto) 5.5 Eos % (Auto) 1.9 Baso % (Auto) 0.6 Absolute Neuts (auto) 5.3 Absolute Lymphs (auto) 3.58 Nucleated RBC % 0 Sodium 136 Potassium 3.8 Chloride 107 Carbon Dioxide 21.0 Anion Gap 8 BUN 19 H Creatinine 0.66 Estim Creat Clear Calc 115.39 Est GFR (MDRD) Af Amer 129 Est GFR (MDRD) Non-Af 106 BUN/Creatinine Ratio 28.6 H Glucose 91 Calcium 9.4 Total Bilirubin 0.30 AST 12 L ALT 19 Alkaline Phosphatase 80 Total Protein 7.7 Albumin 4.1 Globulin 3.6 Albumin/Globulin Ratio 1.1 Lipase 41 L Serum , Qual NEGATIVE Urine Color Yellow Urine Clarity Clear Urine pH 6.0 Ur Specific [place] 1.015 Urine Protein 30 H Urine Glucose (UA) Normal Urine Ketones Negative Urine Occult Blood 50 H Urine Nitrite Negative Urine Bilirubin Negative Urine Urobilinogen Normal Ur Leukocyte Esterase 25 H Urine RBC 0 SEEN Urine WBC 0-5 SEEN Ur Squamous Epith Cells 0-5 SEEN Urine Bacteria 0 SEEN Urine Mucus 1+ Radiography Diagnostic Testing: Clinical Impression(s) from Imaging Studies Abdomen/Pelvis CT 10/09/24 14:31 IMPRESSION: No CT evidence of acute intra- abdominal pathology. Reading Location: [facility] Management Discussion w/another healthcare provider: Chief Technician X Ray (General surgery, GI) Discharge Plan Triage Chief Complaint: Abd Pain ED Provider: Vanita Pedroza Dx/Rx/DC Orders Clinical Impression: Nausea vomiting and diarrhea, Crohn's disease, Right upper quadrant abdominal pain Instructions: ED Crohn's Disease, ED Diarrhea, Unknown Cause, ED Post Op Wound Check, Pain Prescriptions: New oxycodone 5 mg tablet 5 mg PO Q8H PRN (Reason: pain) 3 Days Qty: 10 0RF No Action alprazolam 1 mg tablet 1 mg PO TID PRN (Reason: anxiety) cetirizine 10 mg tablet 10 mg PO DAILY PRN (Reason: allergy symptoms) folic acid 1 mg tablet 1 mg PO QDAY Qty: 30 2RF budesonide 3 mg capsule,delayed,extend.release 9 mg PO QAM Qty: 90 0RF sucralfate 1 gram tablet 1 g PO QACHS Qty: 56 1RF Rx Instructions: Take an hour before meals and at bedtime diphenoxylate-atropine [Lomotil] 2.5-0.025 mg tablet 1 tab PO 4X/DAY PRN PRN (Reason: diarrhea) 5 Days Qty: 20 0RF promethazine 25 mg tablet 25 mg PO Q6H PRN PRN (Reason: Nausea) Qty: 10 0RF citalopram 40 mg tablet 20 mg PO QHS pantoprazole [Protonix] [address] for susp in packet 40 mg PO DAILY Qty: 30 0RF ondansetron 4 mg tablet,disintegrating 4 mg PO Q8H PRN PRN (Reason: Nausea) Qty: 10 0RF Humira(CF) Pen [id number] 80 mg/0.8 mL pen injector kit See Rx Instructions subcut .COMPLEX Qty: 3 0RF Rx Instructions: inject two - 80 mg/0.8 mL pens on Day 1; inject one - 80 mg/0.8 mL pen on Day 15 of therapy subcut oxycodone 5 mg capsule 5 mg PO Q6H PRN (Reason: pain) 3 Days Qty: 10 0RF Primary Care Provider: Azael Lr Referrals: Azael Lr MD [Primary Care Provider] - Jeremiah Alva DO [Med Staff - Active Staff] - Activity Restrictions/Additional Instructions: Diarrhea after gallbladder removal can be normal however it is not clear why you are having increased pain. The diarrhea could be associated with your Crohn's. Dr. Alva recommend continuing taking your prescribed dose of Bentyl (dicyclomine). Please follow-up at his office and with surgery as scheduled next week. If your symptoms worsen please return to the emergency room. Print Language: Macedonian Disposition Disposition: Home, Self Care Discharge Date/Time: 10/09/24 19:06
[2024-10-09 14:35] LABS: Color, Urine Yellow (Yellow); Glucose, Dipstick Normal (Normal); Ketone-Dipstick Negative (Negative); Leukocyte Esterase-Dipstick 25 /ul (Negative); Nitrite-Dipstick Negative (Negative); Occult Blood-Urine 50 /ul (Negative); Protein-Dipstick 30 mg/dl (Negative); Specific Gravity, Urine 1.015 (1.002-1.030); Urine Bilirubin Dipstick Negative (Negative); Urine Clarity Clear (Clear); Urine Urobilinogen Normal (Normal)
[2024-10-09] MEDS: 0.9% Normal Saline (1000mL) 1,000 ML 1000 ML IV (14:42)
[2024-10-09] MEDS: Ondansetron 4 MG/2 ML Vial IV (14:42)
[2024-10-09] MEDS: HYDROmorphone 1 MG/ML Syringe 0.5 MG IV (14:42)
[2024-10-09] MEDS: Ketorolac 15 MG/ML Vial IV (14:43)
[2024-10-09 14:45] LABS: White Blood Cells 0-5 SEEN /hpf (0-5)
[2024-10-09 14:46] LABS: Mucous, Urine 1+ /hpf (<or=2+); Red Blood Cells-Urine 0 SEEN /hpf (0-5); Squamous Epithelial Cells - UA 0-5 SEEN /hpf (5-10)
[2024-10-09 16:00] VITALS: BP 128/78; PULSE 85; O2SAT 99
[2024-10-09] MEDS: oxyCODONE 5 MG Tablet PO (17:14)
[2024-10-09 18:00] VITALS: BP 120/78; PULSE 68; RESP 16; O2SAT 98
[2024-10-09 19:01] VITALS: BP 120/78; PULSE 68; RESP 16; TEMP 36.8; O2SAT 98
== END 2024-10-09 19:06 | disposition home or self-care (01) ==
PROVIDERS: Emergency Provider Emergency Medicine; PCP Family Medicine; Visit Provider Emergency Medicine
DX: R11.2 Nausea with vomiting, unspecified (principal); K50.90 Crohn's disease, unspecified, without complications; R19.7 Diarrhea, unspecified; R10.11 Right upper quadrant pain; F17.210 Nicotine dependence, cigarettes, uncomplicated; Z90.49 Acquired absence of other specified parts of digestive tract; K21.9 Gastro-esophageal reflux disease without esophagitis
CPT/HCPCS: 74177; 80053; 81001; 83690; 84703; 85025; 87631; 96361; 96374; 96375; 99283; Q9967; A4216; J2405

== ENCOUNTER → 2024-12-11 | Outpatient (CLI) | payer OTHER, SELFPAY ==
--- NOTE | 2024-12-11 11:00 | MRI_ITS ---
PROCEDURE: ENTEROGRAPHY ABD/PEL ([facility]) 12/11/2024 REASON FOR EXAM: K50.90 - CROHN'S DISEASE, UNSPECIFIED, WITHOUT COMPLICATIONS TECHNIQUE: Multisequence multiplanar MRI of the abdomen and pelvis was performed with and without IV contrast. IV contrast: 15 mL Clariscan PO contrast: Administered, type and dose information not provided COMPARISON: 10/09/2024 FINDINGS: Note that the exam was optimized for evaluation of the bowel rather than the remaining abdominopelvic viscera. Accordingly some upper abdominal viscera are excluded from the [id number]. Note also that dynamic T2 and diffusion sequences were note that not performed. Note that the perianal region is partially imaged. Liver: Unremarkable. Spleen: Unremarkable. Gallbladder: Cholecystectomy. Pancreas: Unremarkable. Adrenals: Unremarkable. Kidneys: Tiny bilateral cysts. Bowel: Questionable minimal hyperemia without wall thickening or mural stratification along a short roughly 2.5 cm segment of the terminal ileum extending to the ileocecal valve. No other convincing areas of abnormal small bowel wall thickening, enhancement, or mesenteric edema. No findings to suggest penetrating disease such as fistulization or abscess. Unremarkable terminal ileum. Circumferential T2 dark wall thickening versus underdistention involving the rectosigmoid extending to the anorectal junction. Upstream colon within normal limits. Normal appendix. Lymph nodes: Subcentimeter mesenteric nodes. Vasculature: Unremarkable. Peritoneum: Trace pelvic free fluid. Bladder: Unremarkable. Reproductive Organs: 2.0 cm RIGHT ovarian likely hemorrhagic cyst. Peripherally enhancing 2.6 cm RIGHT ovarian cyst compatible with a corpus luteal cyst. 3.4 cm simple appearing LEFT ovarian likely physiologic cyst. Body Wall: Suspect operative changes near the umbilicus. Bones: Unremarkable. MRI/Enterography Abd/Pel IMPRESSION: 1. Questionable minimal hyperemia without significant wall thickening along a s hort 2.5 cm segment of the terminal ileum extending to the ileocecal valve. This could reflect minimal active inflammati on. No convincing evidence of a fibrotic component, stenosis, fistulization, or abscess. 2. Wall thickening versus underdistention involving the rectosigmoid with assoc iated hyperemia. This could reflect an additional site of disease involvement and would be optimally evaluated by sigmoidoscopy. Clinical follow-up recommended to exclude underlying lesion. 3. Trace pelvic free fluid, potentially physiologic in this demographic. Bilat eral adnexal cystic foci compatible with corpus luteal, hemorrhagic, and physiologic cysts, though suboptimally characterized b y MR enterography. 4. Additional description as above. Reading Location: [id number]
[2024-12-11 11:32] VITALS: BP 104/42; PULSE 76; RESP 18; O2SAT 98; BMI 28.6
[2024-12-11] MEDS: 0.9% Saline Lock 10 ML Syringe IV (11:47)
[2024-12-11] MEDS: Glucagon 1 MG/ML Syringe IV (12:51)
[2024-12-11 13:03] VITALS: BP 155/68; PULSE 85; RESP 18; O2SAT 96
== END | disposition home or self-care (01) ==
LOC: MRI 10:49
PROVIDERS: PCP Family Medicine; Referring Provider Nurse Practitioner Acute Care; Visit Provider Nurse Practitioner Acute Care
DX: K50.919 Crohn's disease, unspecified, with unspecified complications (principal); R10.11 Right upper quadrant pain; R11.0 Nausea
CPT/HCPCS: 74183; 96374; A9575; A4216; J1610

== ENCOUNTER → 2024-12-14 | Outpatient (CLI) | payer OTHER, SELFPAY ==
[2024-12-15 15:08] LABS: Calprotectin, Stool 29 ug/g (0-120)
== END | disposition home or self-care (01) ==
LOC: LABSPEC 09:42
PROVIDERS: PCP Family Medicine; Referring Provider Nurse Practitioner Acute Care; Visit Provider Nurse Practitioner Acute Care
DX: R19.7 Diarrhea, unspecified (principal)
CPT/HCPCS: 83993

== ENCOUNTER 2025-01-03 19:25 | Emergency (ER) | payer OTHER, SELFPAY ==
[2025-01-03 19:25] VITALS: BP 115/78; PULSE 68; RESP 16; TEMP 36.8; O2SAT 99
[2025-01-03 19:26] VITALS: TEMP 36.8; BMI 27.4
--- NOTE | 2025-01-03 19:35 | ED.RN ---
Respiratory called for EKG
--- NOTE | 2025-01-03 19:57 | ED.VIS.GI ---
HPI HPI - GI History of Present Illness Chief Complaint: Abd Pain Informant: patient Abdominal Pain/Flank Pain Onset: Days Context: Gradual Onset Timing: Continuous Quality: Cramping Location: Diffuse Current Severity: Mild Maximum Severity: Mild Worsened by: Nothing Relieved by: Nothing Nausea/Vomiting/Emesis GI Symptom: Positive for Nausea and Vomiting Onset: Days Severity: Mild Diarrhea/Melena/Hematochezia GI Symptom: Positive for Diarrhea Onset: Days Stool Quality: Positive for Loose Associated Symptoms Associated Symptoms: Negative for Dysuria, Frequency, Hematuria or Urgency Narrative Narrative: 39-year-old female history of Crohn's and prior cholecystectomy. Think she is having a Crohn's flare. Says the last week she has had diffuse abdominal cramping with nausea, vomiting diarrhea. No dysuria. No fever. No melena. No hematemesis. Prior similar symptoms: Yes Recent Illness/Hospitalization: No PFSH PFS Medical History History of steroid therapy Dietary restriction Hidradenitis suppurativa Wears glasses Wears contact lenses History of ulceration Gastric reflux Smoker History of irregular heartbeat Groin abscess Left ovarian cyst Stephanie Tobar infection Colitis Gestational diabetes Crohns disease Depression Anxiety Home Medications ?Medication ?Instructions ?Recorded ?Last Taken ?Type diphenoxylate-atropine 2.5 1 tab PO 4X/DAY PRN PRN diarrhea 5 11/22/22 Unknown Rx mg-0.025 mg tablet (Lomotil) days #20 tabs promethazine 25 mg tablet 25 mg PO Q6H PRN PRN Nausea #10 02/04/23 Unknown Rx TABLETS alprazolam 1 mg tablet 1 mg PO TID PRN anxiety 11/15/23 07/09/24 History cetirizine 10 mg tablet 10 mg PO DAILY PRN allergy symptoms 11/15/23 07/09/24 History citalopram 40 mg tablet 20 mg PO QHS 12/26/23 07/09/24 History cholestyramine (with sugar) 4 gram 4 g PO BID #60 ea 11/09/24 Unknown Rx powder for susp in a packet (Questran) pantoprazole 40 mg tablet,delayed 40 mg PO QDAY #90 tabs 11/09/24 Unknown Rx release oxycodone 5 mg capsule 5 mg PO TID PRN pain 5 days #15 01/03/25 Unknown Rx caps prednisone 20 mg tablet 40 mg (2 x 20 mg) PO DAILY 10 days 01/03/25 Unknown Rx #20 tabs Allergy/AdvReac Type Severity Reaction Status Date / Time nectarine Allergy Angioedema Verified 01/03/25 19:29 metoclopramide (From Reglan) AdvReac headache Verified 01/03/25 19:29 Family History Mother Heart disease Pacemaker Grandfather Diabetes Grandmother Diabetes Surgical History History of esophagogastroduodenoscopy (EGD) (~2018) History of colonoscopy (~2017) History of wisdom tooth extraction Social History household members: spouse Smoking Status: Current every day smoker tobacco type: cigarettes alcohol intake: never substance use type: does not use caffeine: Yes what type of physical activity do you participate in: walking seatbelt use: always do you feel safe at home: Yes additional social history: [employer] ROS ROS ED ROS Narrative Abdominal cramping. Nausea, vomiting, diarrhea. Constitutional Constitutional ED: Denies chills or fever(s) ENT ENT ED: Denies ear pain Cardiovascular Cardiovascular: Denies chest pain Respiratory/Chest Respiratory/Chest: Denies cough or dyspnea Gastrointestinal Gastrointestinal: Reports abdominal pain, diarrhea, nausea and vomiting; Denies constipation or melena Genitourinary Genitourinary ED: Denies dysuria or hematuria Musculoskeletal Musculoskeletal: Denies arthralgias or back pain Integumentary Denies abscess Neurologic Neurologic: Denies headache(s) Psychiatric Psychiatric: Denies anxiety Endocrine Endocrinology: Denies polydipsia Hematologic/Lymphatic Hematologic/Lymphatic: Denies easy bleeding Allergic/Immunologic Allergic/Immunologic ED: Denies mouth swelling, tongue swelling or urticaria EXAM Physical Exam Narrative Exam Narrative: 39-year-old female sitting upright in bed. Vital signs are stable. She is afebrile. She does not look septic or toxic. She does not look significantly dehydrated. She is emotionally upset at times tearful. H EENT exam pupils round react light. Moist mucous membranes. Neck nontender no lymphadenopathy. Lungs clear to auscultation bilaterally. Heart regular rhythm no murmur rate about 70. Chest wall and ribs nontender. Abdomen soft nondistended normal bowel sounds without peritoneal signs. Mildly tender diffusely no localizing tenderness. No hernia or mass. No obstruction. No specific right upper or right lower quadrant tenderness. Moving all 4 extremities. Nontender no edema. Back nontender. Neurologically she is awake alert no focal motor deficits. Answering questions following commands. Const Vital Signs: 01/03/25 19:25 01/03/25 19:26 01/03/25 19:50 Temperature 98.3 F 98.3 F Temperature Source Oral Oral Pulse Rate 68 Respiratory Rate 16 Respiratory Effort Short of Breath Respiratory Pattern Normal Blood Pressure 115/78 Blood Pressure Mean 90 Pulse Ox 99 Oxygen Delivery Method Room Air 01/03/25 19:52 01/03/25 21:16 Temperature Temperature Source Pulse Rate 58 L Respiratory Rate 16 Respiratory Effort Short of Breath Respiratory Pattern Blood Pressure 144/73 H Blood Pressure Mean 96 Pulse Ox 98 Oxygen Delivery Method Room Air Positive well nourished and well developed; Negative for obese, cachectic, contractures or unkempt General Appearance ED: well developed and NAD; Negative for unkempt, cachectic, contractures or pallor Nutritional Appearance: Negative for cachectic or obese HEENT Reports moist mucous membranes normocephalic and atraumatic Eyes PERRL and EOMs intact bilaterally General Eye ED: Negative for pale conjunctiva or scleral icterus Neck no lymphadenopathy, supple and no JVD General: Negative for tenderness Lymph Lymphatic: Negative for other Resp normal respiratory effort and clear to auscultation bilaterally Cardio regular rate, regular rhythm, S1 normal heart sound, S2 normal heart sound and no murmurs GI non-distended and no masses; Negative for non-tender GI Narrative: Very mildly tender diffusely. Not localizing. No hernia or mass. No specific right upper or right lower quadrant tenderness. No distention. No peritoneal signs. Inspection: Negative for abdominal distention Auscultation: normoactive bowel sounds Palpation: soft and tender; Negative for guarding, rigid, hernia, mass, pulsatile mass or rebound tenderness present Back/Spine no CVA tenderness General Back: Negative for CVA tenderness Cervical Spine: Negative for cervical spine tenderness Thoracic Spine / Upper Back: Negative for thoracic spinal tenderness Lumbar Spine / Lower Back: Negative for lumbar spinal tenderness Extremity full ROM General Extremety ED: Negative for edema or tenderness General Extremity: Negative for edema Neuro moves all extremities Sensorium / Orientation: alert, oriented to person, oriented to place and oriented to time; Negative for orientation impaired, confused or lethargic Motor Exam: strength 5/5 throughout Psych mental status grossly normal and thought process normal Appearance: Negative for unkempt Mood & Affect: anxious and tearful Skin no wounds General Skin Exam: Negative for jaundice or pallor Lesions: no lesions Rashes: no rashes MDM MDM MDM Narrative Medical decision making narrative: 39-year-old female with Crohn's complaining of diarrhea, nausea vomiting cramping. CAT scan will be obtained on the labs consider viral syndrome versus Crohn's flare versus other etiologies. Clinically and only gets appendicitis. Clinically it is not a bowel obstruction. She be treated with IV morphine, Toradol and Zofran. CAT scan and labs are being obtained. IV fluids due to the vomiting and diarrhea. Repeat exam at 9:30 PM patient doing well. Abdomen benign. We discussed her test results. She is comfortable being discharged home. Currently she is on no maintenance Crohn's medication. She sees Dr. Alva and his nurse practitioners in his office. Should be placed on prednisone 40 mg a day for 10 days. Given first dose in the emergency department. Written for limited oxycodone for pain. Outpatient follow-up. History & Record Review Discussion w/independent historian: Patient Additional record(s) reviewed:: Prior inpatient record, Prior outpatient record, Prior ED visit and Prior labs Lab Data Attestation: I reviewed the patient's lab results. Lab results narrative: CBC shows a white count 12.5. H&H 13 and 39. Platelets 392. Electrolytes show sodium 138. Gap 12. BUN is 16 creatinine 0.6. Glucose 103. Liver enzymes are unremarkable. Lipase normal at 46. test negative. Urinalysis shows no nitrates. No red cells. 5-10 white cells. 2+ bacteria. Labs: Laboratory Results - last 24 hr 01/03/25 01/03/25 19:54 20:25 WBC 12.5 H RBC 4.68 Hgb 13.7 Hct 39.9 MCV 85.3 MCH 29.3 MCHC 34.3 RDW Std Deviation 42.0 RDW Coeff of Dimitrios 13.4 Plt Count 392 MPV 9.5 Immature Gran % (Auto) 0.400 Neut % (Auto) 51.9 Lymph % (Auto) 38.6 [place] % (Auto) 6.1 Eos % (Auto) 2.0 Baso % (Auto) 1.0 Absolute Neuts (auto) 6.5 Absolute Lymphs (auto) 4.82 H Nucleated RBC % 0 Platelet Estimate A RBC Morphology NORM C+C Sodium 138 Potassium 3.6 Chloride 105 Carbon Dioxide 20.8 L Anion Gap 12 BUN 16 Creatinine 0.61 L Estim Creat Clear Calc 123.25 Est GFR (MDRD) Non-Af 118 BUN/Creatinine Ratio 27.1 H Glucose 103 H Calcium 9.2 Total Bilirubin < 0.15 AST 17 ALT 14 Alkaline Phosphatase 79 Total Protein 6.8 Albumin 4.2 Globulin 2.6 Albumin/Globulin Ratio 1.6 Lipase 46 Serum , Qual NEGATIVE Urine Color Yellow Urine Clarity Cloudy Urine pH 6.5 Ur Specific [place] 1.015 Urine Protein 30 H Urine Glucose (UA) Normal Urine Ketones Negative Urine Occult Blood 25 H Urine Nitrite Negative Urine Bilirubin Negative Urine Urobilinogen Normal Ur Leukocyte Esterase 100 H Urine RBC 0-5 SEEN Urine WBC 5-10 SEEN Ur Squamous Epith Cells 0-5 SEEN Urine Bacteria 2+ Urine Mucus 0 SEEN Radiography Diagnostic Testing: Clinical Impression(s) from Imaging Studies Abdomen/Pelvis CT 01/03/25 20:10 IMPRESSION: Wall thickening and mild submucosal hyperemia descending and proximal sigmoid colon, concerning for infectious/inflammatory colitis. Bilateral adnexal cysts, the larger on the left measures 5.4 cm. Reading Location: [facility] Discharge Plan Triage Chief Complaint: Abd Pain Other Complaint: General Illness Palpitations ED Provider: Erick Ackerman Dx/Rx/DC Orders Clinical Impression: Exacerbation of Crohn's disease, Abdominal pain Instructions: Abdominal Pain, ED Crohn's Disease Prescriptions: New oxycodone 5 mg capsule 5 mg PO TID PRN (Reason: pain) 5 Days Qty: 15 0RF prednisone 20 mg tablet 40 mg PO DAILY 10 Days Qty: 20 0RF No Action alprazolam 1 mg tablet 1 mg PO TID PRN (Reason: anxiety) cetirizine 10 mg tablet 10 mg PO DAILY PRN (Reason: allergy symptoms) cholestyramine (with sugar) [Questran] 4 gram powder in packet 4 g PO BID Qty: 60 0RF Rx Instructions: administer w/meal; avoid other meds within 1hr before or 4-6hr after dose pantoprazole 40 mg tablet,delayed release (DR/EC) 40 mg PO QDAY Qty: 90 1RF Rx Instructions: take 30 minutes before breakfast every morning diphenoxylate-atropine [Lomotil] 2.5-0.025 mg tablet 1 tab PO 4X/DAY PRN PRN (Reason: diarrhea) 5 Days Qty: 20 0RF promethazine 25 mg tablet 25 mg PO Q6H PRN PRN (Reason: Nausea) Qty: 10 0RF citalopram 40 mg tablet 20 mg PO QHS Primary Care Provider: Azael Lr Referrals: Azael Lr MD [Primary Care Provider] - Jeremiah Alva DO [Med Staff - Active Staff] - As soon as possible Activity Restrictions/Additional Instructions: Call and follow-up with Dr. Alva's office. Call the for an appointment to be seen this week. Prednisone 40 mg a day start tomorrow. Once a day for the next 10 days. Oxycodone for pain. Return if increasing pain, fever, intractable vomiting or feeling worse. Print Language: [place] Disposition Disposition: Home, Self Care
[2025-01-03 20:03] LABS: Absolute Lymphocyte Count 4.82 X10^3/uL (0.83-4.51); Absolute Neutrophil Count 6.5 X10^3/uL (2.0-7.7); Basophil# 0.12 X10^3/uL; Eosinophil# 0.25 X10^3/uL; Hematocrit 39.9 % (37-47); Hemoglobin 13.7 g/dL (12.0-15.0); Lymphocyte # 4.82 X10^3/ul (0.83-4.51); Lymphocyte % 38.6 % (19-41); Mean Corp Hgb Conc 34.3 g/dL (32-36); Mean Corpuscular Hgb 29.3 pg (27.0-32.0); Mean Corpuscular Volume 85.3 fL (81-99); Mean Platelet Vol. 9.5 fl (6.2-12.0); Monocyte# 0.76 X10^3/uL; Monocyte% 6.1 % (0-10); NRBC Flagged by Analyzer 0 % (0-5); Neutrophil # 6.49 X10^3/uL (2.7-7.7); Neutrophil % 51.9 % (47-70); POSITIVE MORPHOLOGY YES; Platelet Count 392 K/mm3 (150-450); RBC Distribution Width CV 13.4 % (11.6-14.6); Red Blood Count 4.68 M/mm3 (4.2-5.4); White Blood Count 12.5 K/mm3 (4.4-11.0)
[2025-01-03] MEDS: Ketorolac 30 MG/ML Syringe IV (20:06)
[2025-01-03] MEDS: Morphine 4 MG/ML Syringe IV (20:06)
[2025-01-03] MEDS: Ondansetron 4 MG/2 ML Vial IV (20:06)
--- NOTE | 2025-01-03 20:10 | CT_ITS ---
PROCEDURE: ABDOMEN/PELVIS W IV CONT ONLY 01/03/2025 REASON FOR EXAM: ABD PAIN W/ CROHNS HX TECHNIQUE: Abdomen and pelvis CT with intravenous contrast. Coronal and Sagittal reconstruction series were provided. PATIENT PREPARATION: Per protocol ORAL CONTRAST TYPE: None. AMOUNT: mL CONTRAST: Omnipaque 350 VOLUME: 100 mL Not Provided Gauge IV One or more dose reduction techniques were used (e.g., Automated exposure control, adjustment of the mA and/or kV according to patient size, use of iterative reconstruction technique. COMPARISON: MRI abdomen 12/11/2024 FINDINGS: Lung bases: Unremarkable. Liver: Hepatomegaly, craniocaudal and 19.2 cm. No focal lesion. Gallbladder: Mild intrahepatic ductal dilation. Common bile duct is within normal limits. Cholecystectomy. Spleen: Normal size. Pancreas: Normal size without evidence of mass surrounding inflammation or ductal dilation. Adrenals: Unremarkable Kidneys: Normal renal sizes. No hydronephrosis. Subcentimeter low-attenuation lesion left interpolar region,, too small to characterize likely benign. Bladder: Unremarkable. Reproductive Organs: Bilateral adnexal cysts, the larger on the left measures 5.4 x 2.5 cm. Bowel: Stomach is unremarkable. No bowel dilation. Mild wall thickening and submucosal hyperemia involving the descending and proximal sigmoid colon. Appendix: Unremarkable. Lymph nodes: No suspicious lymph node enlargement. Vasculature: The abdominal aorta and IVC are normal. Peritoneum / Retroperitoneum: No ascites. Bones: No suspicious osseous lesions. CT/Abdomen/Pelvis W IV Cont ONLY IMPRESSION: Wall thickening and mild submucosal hyperemia descending and proximal sigmoid c olon, concerning for infectious/inflammatory colitis. Bilateral adnexal cysts, the larger on the left measures 5.4 cm. Reading Location: [facility]
[2025-01-03 20:15] LABS: Internal QC Validated? YES +Cl - CLEAR BKGD; Pregnancy, Serum, hCG Quali. NEGATIVE Negative; Record Kit Lot#, Serum Preg. 929381
[2025-01-03 20:17] LABS: Lipase 46 U/L (13-75)
[2025-01-03 20:21] LABS: ALB/GLOB Ratio 1.6 RATIO (0.9-2.4); AST(SGOT) 17 U/L (<=31); Alanine Aminotransfer ALT/SGPT 14 U/L (<=34); Albumin, Serum 4.2 g/dL (3.5-5.0); Alkaline Phosphatase 79 U/L (35-104); Anion Gap 12 (5-15); BUN 16 mg/dL (4-19); BUN/Creat Ratio 27.1 RATIO (10-20); Calcium,Total 9.2 mg/dL (7.6-11.0); Carbon Dioxide 20.8 mmol/L (21.0-32.0); Chloride 105 mmol/L (98-108); Creatinine, Serum 0.61 mg/dL (0.70-1.20); EST Glomerular Filtration Rate 118 (>60); Estimated Creatinine Clearance 123.25 ml/min (50-250); Globulin 2.6 g/dL (2.2-4.2); Glucose 103 mg/dL (70-99); Potassium 3.6 mmol/L (3.3-5.1); Protein, Total 6.8 g/dL (5.9-8.4); Sodium Level 138 mmol/L (133-145); Total Bilirubin < 0.15 mg/dL (0.00-1.30)
[2025-01-03 20:41] LABS: Differential Indicated SCAN CRITERIA MET
[2025-01-03 20:44] LABS: Mucous, Urine 0 SEEN /hpf (<or=2+)
[2025-01-03 20:46] LABS: Color, Urine Yellow (Yellow); Glucose, Dipstick Normal (Normal); Ketone-Dipstick Negative (Negative); Leukocyte Esterase-Dipstick 100 /ul (Negative); Nitrite-Dipstick Negative (Negative); Occult Blood-Urine 25 /ul (Negative); Protein-Dipstick 30 mg/dl (Negative); Specific Gravity, Urine 1.015 (1.002-1.030); Urine Bilirubin Dipstick Negative (Negative); Urine Clarity Cloudy (Clear); Urine Urobilinogen Normal (Normal); Urine pH 6.5 (5.0 - 8.0)
[2025-01-03 20:49] LABS: Platelet Estimate A (ADEQ); Red Cell Morphology NORM C+C NORMAL (NORM C&C)
[2025-01-03 21:15] LABS: Bacteria 2+ /hpf (None Seen); Red Blood Cells-Urine 0-5 SEEN /hpf (0-5); Squamous Epithelial Cells - UA 0-5 SEEN /hpf (5-10); White Blood Cells 5-10 SEEN /hpf (0-5)
[2025-01-03 21:16] VITALS: BP 144/73; PULSE 58; RESP 16; O2SAT 98
[2025-01-03] MEDS: predniSONE 20 MG Tablet 40 MG PO (21:55)
[2025-01-03] MEDS: oxyCODONE 5 MG Tablet PO (21:55)
[2025-01-03 21:56] VITALS: BP 129/56; PULSE 67; RESP 18; TEMP 36.4; O2SAT 99
== END 2025-01-03 21:58 | disposition home or self-care (01) ==
PROVIDERS: Emergency Provider Emergency Medicine; PCP Family Medicine; Visit Provider Emergency Medicine
DX: K50.90 Crohn's disease, unspecified, without complications (principal); R10.9 Unspecified abdominal pain; R00.2 Palpitations; R19.7 Diarrhea, unspecified; R11.2 Nausea with vomiting, unspecified; F17.210 Nicotine dependence, cigarettes, uncomplicated; Z90.49 Acquired absence of other specified parts of digestive tract; K21.9 Gastro-esophageal reflux disease without esophagitis; Z79.899 Other long term (current) drug therapy
CPT/HCPCS: 74177; 80053; 81001; 83690; 84703; 85025; 96374; 96375; 99285; Q9967; A4216; J2405

== ENCOUNTER 2025-02-25 13:17 | Emergency (ER) | payer OTHER, SELFPAY ==
[2025-02-25 13:17] VITALS: BP 135/71; PULSE 19; RESP 22; TEMP 36.6; O2SAT 98; BMI 26.4
--- NOTE | 2025-02-25 15:12 | RAD_ITS ---
PROCEDURE: CHEST 1 VIEW (PORTABLE) 02/25/2025 REASON FOR EXAM: CHEST PAIN TECHNIQUE: Frontal view of the chest. COMPARISON: Prior chest radiograph dated June 07, 2024. FINDINGS: Hardware: EKG electrodes are seen Heart: Cardiac and mediastinal contours are stable. Lungs: The lungs are clear. Bones: The bones are unremarkable. Other: RAD/Chest 1 View (Portable) IMPRESSION: No Acute Findings. Reading Location: [facility]
--- NOTE | 2025-02-25 15:13 | ED.VIS.CHEST ---
HPI History of Present Illness Chief Complaint: Chest Other Narrative Narrative: 39-year-old female past medical history of Crohn disease presents with nausea and vomiting, right ear pain that she has had for a month, and left-sided chest pain that she has had since around 8 PM yesterday evening, over 12 hours ago. Regarding her right ear pain, she states been hurting her for about a month. No loss of hearing. Recently went swimming as well. Yesterday evening she developed nausea and vomiting consistent with her previous Crohn disease. She states her nausea is improving, but she has had left-sided chest pain since 8 PM. Its under her breast, and radiates upward towards her shoulder. It is mildly pleuritic in nature. She relates history that she thinks she has a family history of a clotting disorder. She herself has never been diagnosed with 1. She was directed by her primary care provider to present to the emergency department regarding her chest pain. No fevers or chills, no cough. [facility] Medical History History of steroid therapy Dietary restriction Hidradenitis suppurativa Wears glasses Wears contact lenses History of ulceration Gastric reflux Smoker History of irregular heartbeat Groin abscess Left ovarian cyst Stephanie Tobar infection Colitis Gestational diabetes Crohns disease Depression Anxiety Home Medications ?Medication ?Instructions ?Recorded ?Last Taken ?Type alprazolam 1 mg tablet 1 mg PO TID PRN anxiety 11/15/23 07/09/24 History cetirizine 10 mg tablet 10 mg PO DAILY PRN allergy symptoms 11/15/23 07/09/24 History pantoprazole 40 mg tablet,delayed 40 mg PO QDAY #90 tabs 11/09/24 02/24/25 Rx release acetaminophen 500 mg tablet 1,000 mg PO Q6H PRN fever or pain 02/25/25 02/25/25 History cholestyramine (with sugar) 4 gram 4 g PO DAILY 02/25/25 02/24/25 History powder for susp in a packet (Questran) citalopram 20 mg tablet 20 mg PO DAILY 02/25/25 02/24/25 History diphenoxylate-atropine 2.5 1 tab PO 4X/DAY PRN diarrhea 02/25/25 Unknown History mg-0.025 mg tablet (Lomotil) lisdexamfetamine 30 mg capsule 30 mg PO DAILY 02/25/25 02/24/25 History ondansetron 4 mg disintegrating 4 mg PO Q8H PRN PRN Nausea #15 tabs 02/25/25 Unknown Rx tablet ondansetron 4 mg disintegrating 4 mg PO Q8H PRN nausea 02/25/25 Unknown History tablet promethazine 25 mg tablet 25 mg PO Q6H PRN Nausea 02/25/25 02/25/25 History Allergy/AdvReac Type Severity Reaction Status Date / Time nectarine Allergy Angioedema Verified 02/25/25 13:19 metoclopramide (From Reglan) AdvReac headache Verified 02/25/25 13:19 Family History Mother Heart disease Pacemaker Grandfather Diabetes Grandmother Diabetes Surgical History History of cholecystectomy History of esophagogastroduodenoscopy (EGD) (~2017) History of colonoscopy (~2016) History of wisdom tooth extraction Social History household members: spouse Smoking Status: Current every day smoker tobacco type: cigarettes alcohol intake: never substance use type: does not use caffeine: Yes what type of physical activity do you participate in: walking seatbelt use: always do you feel safe at home: Yes additional social history: [employer] ROS ROS ED ROS Narrative Review of systems positive for left-sided chest pain. Underneath left breast and radiating upward toward shoulder, pleuritic, no fevers or chills, no cough. 1 month of right ear pain, no loss of hearing, recent swimming. Nausea and vomiting associated with history of Crohn disease, resolving. EXAM Physical Exam Narrative Exam Narrative: Afebrile. Vital signs noted. Nontoxic-appearing. Cardiovascular examination reveals a regular rate and rhythm. Lungs clear to auscultation bilaterally. Abdomen soft, nontender, with positive bowel sounds. Neurological examination nonfocal, nonlateralizing. HEENT examination reveals mild swelling of the right canal, TM without erythema, no mastoid tenderness or erythema bilaterally. Const Vital Signs: 02/25/25 13:17 02/25/25 13:55 02/25/25 15:16 Temperature 97.8 F Temperature Source Temporal Pulse Rate 19 L Respiratory Rate 22 H Respiratory Effort Normal Respiratory Pattern Normal Blood Pressure 135/71 H Blood Pressure Mean 92 Pulse Ox 98 Oxygen Delivery Method Room Air Room Air 02/25/25 15:17 Temperature Temperature Source Pulse Rate 75 Respiratory Rate 12 Respiratory Effort Respiratory Pattern Blood Pressure 138/96 H Blood Pressure Mean 110 Pulse Ox 99 Oxygen Delivery Method Room Air MDM MDM MDM Narrative Medical decision making narrative: Regarding her right ear pain, differential includes otitis media versus otitis externa, I have low suspicion for mastoiditis. Based on her clinical exam she will be treated with Corticosporin drops. Regarding her left-sided chest pain, differential diagnosis includes but not limited to pneumonia versus pneumothorax versus pulmonary embolism versus ACS. History and physical does not support pneumonia as she does not have a fever or cough, and history and physical does not support pneumothorax. EKG was obtained and interpreted by myself independently as normal sinus rhythm with sinus arrhythmia at [address] changes. No STEMI. I reviewed her prior records. On review of her laboratory work, she has slight leukocytosis of 14.0 which may be demargination from vomiting but in review of prior labs she has had almost chronic leukocytosis. Hemoglobin 14.0, hematocrit 14.1, platelet count slightly elevated at 471. D-dimer is negative at less than 0.27 so I doubt pulmonary embolism. Serum is negative. Sodium normal at 138 and potassium 3.54, carbon dioxide low at 18.3 causing slight elevation of anion gap at 16. Glucose 90, I doubt diabetic ketoacidosis with a low glucose. BUN 15 and creatinine low at 0.66. High-sensitivity troponin is less than 6. I feel this is greater than a 6-hour troponin I do not feel that she requires serial enzymes. Chest x-ray interpreted by myself independently shows no evidence of an acute process, no pneumonia or pneumothorax. I reviewed the radiology report which confirms my independent interpretation. She was given Toradol for analgesia. Upon repeat examination, she states she is mildly anxious and usually takes alprazolam 1 mg but has not taken it today. She will be given Ativan 1 mg IV prior to discharge. I do not feel she requires admission or observation and I do not feel she requires narcotic pain medication. She states that Dr. Alva is her personal injury litigation paralegal that usually takes care of any Crohn exacerbation. Additionally, her sister states that she was supposed to start Humira injections. I feel she can be discharged to follow-up. Return instructions to the emergency department were reviewed. She also stated that Zofran works better than her Phenergan for nausea and vomiting so she was written a prescription for 15 ODT's. Disposition is discharged home in stable condition. History & Record Review Discussion w/independent historian: Patient Additional record(s) reviewed:: Prior ED visit and Prior labs Lab Data Attestation: I reviewed the patient's lab results. Labs: Laboratory Results - last 24 hr 02/25/25 02/25/25 02/25/25 13:50 13:52 15:12 WBC 14.0 H RBC 4.78 Hgb 14.0 Hct 41.1 MCV 86.0 MCH 29.3 MCHC 34.1 RDW Std Deviation 41.4 RDW Coeff of Dimitrios 13.3 Plt Count 471 H MPV 10.4 Immature Gran % (Auto) 0.600 Neut % (Auto) 57.4 Lymph % (Auto) 32.9 [place] % (Auto) 6.6 Eos % (Auto) 1.9 Baso % (Auto) 0.6 Absolute Neuts (auto) 8.0 H Absolute Lymphs (auto) 4.59 H Nucleated RBC % 0 D-Dimer Quant (PE/DVT) < 0.27 L Sodium 138 Potassium 3.5 Chloride 104 Carbon Dioxide 18.3 L Anion Gap 16 H BUN 15 Creatinine 0.66 L Estim Creat Clear Calc 111.95 Est GFR (MDRD) Non-Af 116 BUN/Creatinine Ratio 22.6 H Glucose 90 Calcium 9.8 Troponin T High Sens < 6 Lipase 28 Serum , Qual NEGATIVE Radiography Diagnostic Testing: Clinical Impression(s) from Imaging Studies Chest X-Ray 02/25/25 15:12 IMPRESSION: No Acute Findings. Reading Location: [id number] Discharge Plan Triage Chief Complaint: Chest Other Other Complaint: Ear Problem ED Provider: Rad Wilkerson Dx/Rx/DC Orders Clinical Impression: Chest pain, Nausea and vomiting, Otitis externa of right ear, Anxiety Instructions: ED Anxiety Reaction, ED Chest Pain, Uncertain Cause, ED Pain, Acute, Uncertain Cause Prescriptions: New ondansetron 4 mg tablet,disintegrating 4 mg PO Q8H PRN PRN (Reason: Nausea) Qty: 15 0RF No Action alprazolam 1 mg tablet 1 mg PO TID PRN (Reason: anxiety) cetirizine 10 mg tablet 10 mg PO DAILY PRN (Reason: allergy symptoms) pantoprazole 40 mg tablet,delayed release (DR/EC) 40 mg PO QDAY Qty: 90 1RF Rx Instructions: take 30 minutes before breakfast every morning citalopram 20 mg tablet 20 mg PO DAILY acetaminophen 500 mg tablet 1,000 mg PO Q6H PRN (Reason: fever or pain) lisdexamfetamine 30 mg capsule 30 mg PO DAILY ondansetron 4 mg tablet,disintegrating 4 mg PO Q8H PRN (Reason: nausea) diphenoxylate-atropine [Lomotil] 2.5-0.025 mg tablet 1 tab PO 4X/DAY PRN (Reason: diarrhea) promethazine 25 mg tablet 25 mg PO Q6H PRN (Reason: Nausea) cholestyramine (with sugar) [Questran] 4 gram powder in packet 4 g PO DAILY Rx Instructions: administer w/meal; avoid other meds within 1hr before or 4-6hr after dose Primary Care Provider: Azael Lr Referrals: Azael Lr MD [Primary Care Provider] - As soon as possible Friend,DO Jeremiah [Med Staff - Active Staff] - As soon as possible Print Language: [place] Disposition Disposition: Home, Self Care
[2025-02-25 15:17] VITALS: BP 138/96; PULSE 75; RESP 12; O2SAT 99
[2025-02-25] MEDS: Ketorolac 30 MG/ML Syringe IV (15:23)
[2025-02-25 15:24] LABS: Absolute Lymphocyte Count 4.59 X10^3/uL (0.83-4.51); Basophil# 0.08 X10^3/uL; Basophil% 0.6 % (0-1); Eosinophil# 0.26 X10^3/uL; Eosinophils% 1.9 % (0-5); Hematocrit 41.1 % (37-47); Lymphocyte # 4.59 X10^3/ul (0.83-4.51); Lymphocyte % 32.9 % (19-41); Mean Corp Hgb Conc 34.1 g/dL (32-36); Mean Corpuscular Hgb 29.3 pg (27.0-32.0); Mean Platelet Vol. 10.4 fl (6.2-12.0); Monocyte# 0.92 X10^3/uL; Monocyte% 6.6 % (0-10); NRBC Flagged by Analyzer 0 % (0-5); Neutrophil # 8.02 X10^3/uL (2.7-7.7); Neutrophil % 57.4 % (47-70); POSITIVE MORPHOLOGY YES; Platelet Count 471 K/mm3 (150-450); RBC Distribution Width CV 13.3 % (11.6-14.6); RBC Distribution Width SD 41.4 fl (35.1-43.9); Red Blood Count 4.78 M/mm3 (4.2-5.4)
[2025-02-25] MEDS: Ondansetron 4 MG/2 ML Vial IV (15:24)
[2025-02-25 16:09] LABS: Differential Indicated SCAN CRITERIA MET
[2025-02-25 16:17] LABS: Internal QC Validated? YES +Cl - CLEAR BKGD; Pregnancy, Serum, hCG Quali. NEGATIVE Negative; Record Kit Lot#, Serum Preg. 947241
[2025-02-25 16:21] LABS: D-Dimer Quantitative (DVT/PE) < 0.27 FEU/ug/m (0.27-0.49)
[2025-02-25] MEDS: Neomycin/Polymyxin/Dexameth 5ML OPTH.BTL 4 DRP OTIC (16:24)
[2025-02-25 16:25] LABS: Anion Gap 16 (5-15); BUN 15 mg/dL (4-19); BUN/Creat Ratio 22.6 RATIO (10-20); Calcium,Total 9.8 mg/dL (7.6-11.0); Carbon Dioxide 18.3 mmol/L (21.0-32.0); Chloride 104 mmol/L (98-108); Creatinine, Serum 0.66 mg/dL (0.70-1.20); EST Glomerular Filtration Rate 116 (>60); Estimated Creatinine Clearance 111.95 ml/min (50-250); Glucose 90 mg/dL (70-99); Lipase 28 U/L (13-75); Potassium 3.5 mmol/L (3.3-5.1); Sodium Level 138 mmol/L (133-145); Troponin T High Sensitivity < 6 ng/L (<=14)
[2025-02-25] MEDS: Lorazepam 2 MG/ML WCH Syringe 1 MG IV (16:58)
[2025-02-25 17:00] VITALS: BP 137/80; PULSE 78; RESP 14; TEMP 36.6; O2SAT 99
[2025-02-25 18:24] LABS: Differential Comment SCANNED
== END 2025-02-25 17:02 | disposition home or self-care (01) ==
PROVIDERS: Emergency Provider Emergency Medicine; PCP Family Medicine; Visit Provider Emergency Medicine
DX: R07.89 Other chest pain (principal); K50.90 Crohn's disease, unspecified, without complications; R11.2 Nausea with vomiting, unspecified; H60.91 Unspecified otitis externa, right ear; I49.8 Other specified cardiac arrhythmias; F17.210 Nicotine dependence, cigarettes, uncomplicated; F41.9 Anxiety disorder, unspecified; K21.9 Gastro-esophageal reflux disease without esophagitis; Z79.899 Other long term (current) drug therapy; D72.829 Elevated white blood cell count, unspecified
CPT/HCPCS: 71045; 80048; 83690; 84484; 84703; 85025; 85379; 93005; 96374; 96375; 99285; A4216; J2405

== ENCOUNTER 2025-05-28 18:41 | Emergency (ER) | payer OTHER, SELFPAY ==
[2025-05-28 18:42] VITALS: BP 134/70; PULSE 72; RESP 16; TEMP 37; O2SAT 99
--- OUTSIDE RECORDS SUMMARY | 2025-05-28 20:08 | XMS RPT_ITS | CCD ---
Author Organization [facility]ini[facility] Care Team Providers Care Header Up Name Role Phone Azael Irene Primary Care Provider Azael Irene Primary Care Provider Azael Irene Unavailable Azael Irene Primary Care Provider Azael Irene Unavailable [phone] Azael Irene Primary Care Provider Azael Irene Unavailable Dr. Azael Irene Primary Care Provider Dr. Azael Irene Referring Provider Shanti FEEDER ASSOCIATE, FEEDER ASSOCIATE-Gera Belle Attending Provider Dr. Azael Irene Primary Care Provider Dr. Azael Irene Referring Provider [phone] Shanti FEEDER ASSOCIATE, KAYLYN-Gera Belle Attending Provider [phone] Dr. Adrianna Mota Attending Provider Azael Irene MD Primary Care Provider AZAEL IRENE Attending Unavailable AZAEL IRENE Primary Care Unavailable Azael Irene Primary Care Provider [phone] LAVON DEWITT Attending Unavailable AZAEL IRENE Primary Care Unavailabl e MARIA VICTORIA, AZAEL BIGGS Primary Care Unavailfabiana e LAVON DEWITT Attending Unavailable EDUARDO ZULUAGA Referring Unavailable AZAEL IRENE Primary Care Unavailabl e AZAEL IRENE Referring UnavailAZAEL Dunham Primary Care UnavailEDUARDO Villagomez Attending Unavailable LILO MARTINEZ Attending Unavailable AZAEL IRENE Primary Care UnavailAZAEL Dunham Primary Care Unavailfabiana Irene MD, Azael Biggs Primary Care Provider Maria Victoria CLEMONS, Dr. Addison Primary Care Provider [phone] Dr. Earl Smith DO Attending Provider Luis BAUTISTA, Dr. Carballo Emergency Provider Steven CLEMONS, Dr. Bernal Attending Provider Steven CLEMONS, Dr. Bernal Referring Provider Steven CLEMONS, Dr. Bernal Emergency Provider Maria Victoria CLEMONS, Dr. Addison Referring Provider Alex CLEMONS, Dr. Colon Attending Provider [phone] Alex CLEMONS, Dr. Colon Referring Provider [phone] Alex CLEMONS, Dr. Colon Other Provider Tone CLEMONS, Dr. Rosario Attending Provider Laya CLEMONS, Dr. Baez Referring Provider [phone] Vanita Pedroza DO Attending Provider Dr. Vanita Pedroza DO Emergency Provider Mickey FEEDER ASSOCIATE-CNiyah Attending Provider Mickey FEEDER ASSOCIATE-CNiyah Referring Provider Maria Victoria CLEMONS, Dr. Addison Primary Care Provider Maria Victoria CLEMONS, Dr. Addison Referring Provider Dr. Erick Ackerman MD Attending Provider Dr. Erick Ackerman MD Emergency Provider Rad Wilkerson MD Emergency Provider [phone] Azael Irene Referring Unavailable Jose Guadalupe Mishra Attending Unavailable Azael Irene Primary Care Unavailable Azael Irene Referring Unavailable Azael Irene Primary Care Unavailable Barbra Moser Attending Unavailable Robotham, Darlene Referring Unavailable Robotham, Darlene Attending Unavailable Robotham, Darlene Consulting Unavailable Maria Victoria, Azael Primary Care Unavailable Maria Victoria, Azael Referring Unavailable Friend, Jose Guadalupe Attending Unavailable Friend, Jose Guadalupe Consulting Unavailable Maria Victoria, Azael Primary Care Unavailable Maria Victoria, Azael Primary Care Unavailable Gabe Harris Referring Unavailable Gabe Harris Attending Unavailable Vanita Pedroza Attending Unavailable Maria Victoria, Azael Primary Care Unavailable MickeyNiyah Referring Unavailable Maria Victoria, Azael Primary Care Unavailable MickeyNiyah Attending Unavailable Maria Victoria, Azael Primary Care Unavailable Sonya Ramos Attending Unavailable Maria Victoria, Azael Referring Unavailable Maria Victoria, Azael Primary Care Unavailable Nestor Asif Referring Unavailable Marlene Wayne Attending Unavailabl e Maria Victoria, Azael Primary Care Unavailable Bre Selby Referring Unavailable Bre Selby Attending Unavailable MickeyNiyah sherwood Referring Unavailable MickeyNiyah Attending Unavailable Maria Victoria, Azael Primary Care Unavailable Bre Selby Referring Unavailable Bre Selby Attending Unavailable Maria Victoria, Azael Primary Care Unavailable Maria Victoria, Azael Primary Care Unavailable Erick Ackerman Attending Unavailable Mari Avictoria, Azael Primary Care Unavailable ReRad hernandez Attending Unavailable Robotham, Darlene Referring Unavailable Robotham, Darlene Attending Unavailable Maria Victoria, Azael Primary Care Unavailable Maria Victoria, Azael Referring Unavailable Friend, Jose Guadalupe Attending Unavailable Maria Victoria, Azael Primary Care Unavailable MickeyNiyah sherwood Referring Unavailable Maria Victoria, Azael Primary Care Unavailable MickeyNiyah Attending Unavailable Mickey, Niyah Referring Unavailable Maria Victoria, Azael Primary Care Unavailable MickeyNiyah Attending Unavailable Mickey Niyah Attending Unavailable Maria Victoria, Azael Referring Unavailable Maria Victoria, Azael Primary Care Unavailable Maria Victoria, Azael Primary Care Unavailable Reodica Rad Attending Unavailable Maria Victoria, Azael Primary Care Unavailable Earl Smith Attending Unavailable Robotham, Darlene Attending Unavailable Maria Victoria, Azael Primary Care Unavailable Maria Victoria, Azael Referring Unavailable Robotham, Darlene Attending Unavailable Maria Victoria, Azael Primary Care Unavailable Maria Victoria, Azael Referring Unavailable Maria Victoria, Azael Referring Unavailable Maria Victoria, Azael Primary Care Unavailable Bre Selby Attending Unavailable Maria Victoria, Aazel Referring Unavailable MickeyMargaNiyah Attending Unavailable Maria Victoria, Azael Primary Care Unavailable Allergies Allergy Classification Reported Allergen(s) Allergy Type Date of Onset Reaction(s) Facility (20 sources) Morphine; Translations: [MORPHINE] Drug Allergy 06-09-20 15 Other (See Comments), Other: See Comments [place] (3 sources) [place] Propensity to adverse reactions to drug 03-24-20 18 [place] (1 source) Other Propensity to adverse reactions 06-09-20 [place] (2 sources) NECTARINES Propensity to adverse reactions 11-23-19 Angioedema [facility] Work Phone: (20 sources) Metoclopramide; Translations: [METOCLOPRAMIDE] Drug Allergy 11-02-19 Other: See Comments, Other [facility] (19 sources) Other [place]-3s; Translations: [OTHER [place]-3S] Drug Allergy 06-09-20 Swelling [facility] (19 sources) nectarine; Translations: [NECTARINE] Allergy to substance 04-19-20 Other: See Comments [facility] (3 sources) [place] fruit Propensity to adverse reactions 03-24-[address] [facility] (2 sources) [place]-3 Drug Allergy 06-09-[address] [facility] (1 source) Metoclopramide Drug Allergy 02-26-20 [facility] Repository NEGATED: Highlighted row has been ruled out! (1 source) Other Propensity to adverse reactions 06-09-20 Swelling [facility] Medications Current Medications Medication Drug Class(es) Dates Sig (Normalized) Sig (Original) acetaminophen 500 mg oral tablet (20 sources) Start: 02-25-2025 take 2 tablets by mouth every six hours as needed for pain Acetaminophen 500 mg tablet Active 1000 mg PO EVERY 6 HOURS as needed for fever or pain February 25, 2025 12:00am acetaminophen (T YLENOL) 325 mg tablet Take 650 mg by mouth. 0 Active Comment on above: Take 650 mg by mouth . ALPRAZolam 1 mg oral tablet (20 sources) Benzodiazepine Start: take 1 tablet by mouth three times daily as needed for anxiety Alprazolam 1 mg tablet Active 1 mg PO THREE TIMES A DAY as needed for anxiety November 15, 2023 12:00am Start: 11-20-2021 take 1 tablet by kayden th every six hours as needed ALPRAZolam (XANAX) 1 mg tablet Take 1 mg by mouth four times daily as needed. 0 11/20/2021 Active Start: 07-12-2021 take 1 mg by mouth t hree times daily Alprazolam Active 1 MG PO THREE TIMES A DAY July 12, 2021 1:00am Start: 07-29-2018 End: 12-15-2019 take 1 tablet by mouth three times daily as needed for anxiety Alprazolam (Xanax) 0.5 mg tablet Discontinued 0.5 mg PO THREE TIMES A DAY as needed for anxiety November 02, 2019 1:59pm December 15, 2019 2:34pm Comment on above: Take 1 mg by mouth f our times daily as needed. amoxicillin 875 mg / clavulanate 125 mg oral tablet (1 source) Penicillin-class Antibacterial Start: 4 End: 4 take 1 tablet by mouth twice daily amoxicillin-cla vulanate (Augmentin) 875-125 MG tablet Take 1 tablet by mouth 2 times daily for 10 days. 20 tablet 0 01/09/2024 01/19/2024 Active atropine sulfate 0.025 mg / diphenoxylate hydrochloride 2.5 mg oral tablet (15 sources) Anticholinergic, Cholinergic Muscarinic Antagonist, Antidiarrheal Start: 3 take 1 tablet by mouth once as needed diphenoxylate-a tropine (LOMOTIL) 2.5-0.025 mg per tablet Take 1 tablet by mouth as needed. 0 11/22/2022 Active Start: 11-22-2022 diphenoxylate- atropine (Lomotil) 2.5-0.025 MG tablet Take by mouth. 0 11/22/2022 Active Start: 11-22-2022 End: 02-25-2025 Diphenoxylate-Atropine (Lomo til) 2.5-0.025 mg tablet Active 1 {tbl} PO 4 TIMES DAILY as needed for diarrhea February 25, 2025 12:00am baclofen 10 mg oral tablet (1 source) gamma-Aminobutyric Acid-ergic Agonist Start: 04-20-2021 take 1 tablet by mouth three times daily as needed for muscle spasms baclofen (LIORESAL) 10 MG tablet Take 1 tablet by mouth 3 times daily as needed (muscle spasms) 30 tablet 0 04/20/2021 Active cetirizine hydrochloride 10 mg oral tablet (20 sources) Histamine-1 Receptor Antagonist Start: 11-15-2023 take 1 tablet by mouth once daily as needed Cetirizine 10 mg tablet Active 10 mg PO DAILY as needed for allergy symptoms November 15, 2023 12:00am Start: 11-22-2021 take 1 tablet by kayden th once daily Cetirizine (Zyrtec) 5 mg Tablet Active 5 MG PO DAILY November 22, 2021 12:00am take 1 capsule by mo [facility] once daily Cetirizine 10 mg cap Take 10 mg by mouth once daily. 0 Active Comment on above: Take 10 mg by mouth once daily. chlorhexidine gluconate 40 mg/ml medicated liquid soap (2 sources) Start: 09-17-19 24 chlorhexidine (HIBICLENS) 4 % external liquid Indications: Hidradenitis suppurativa Wash affected area one to two times daily 240 mL 5 09/17/2023 Active cholestyramine resin 4000 mg powder for oral suspension (4 sources) Bile Acid Sequestrant Start: 02-26-20 take 1 dose by mouth once daily Cholestyramine (With Sugar) (Questran) 4 gram powder in packet Active 4 g PO DAILY February 25, 2025 12:00am administer w/meal; avoid other meds within 1hr before or 4-6hr after dose Start: 11-09-2024 End: 02-25-2025 take 1 dose by mouth twice daily Cholestyramine (With Sugar) (Questran) 4 gram powder in packet Discontinued 4 g PO TWICE A DAY 60 November 09, 2024 12:00am February 25, 2025 2:28pm administer w/meal; avoid other meds within 1hr before or 4-6hr after dose citalopram 20 mg oral tablet (20 sources) Serotonin Reuptake Inhibitor Start: 02-25-2025 take 1 tablet by mouth once daily Citalopram 20 mg tablet Active 20 mg PO DAILY February 25, 2025 12:00am Start: 12-26-2023 End: 02-25-2025 Citalopram 40 mg tablet Disc ontinued 20 mg PO AT BEDTIME December 26, 2023 12:00February 25, 2025 2:26pm Start: 12-26-2023 take 40 mg by mouth at bedtime Citalopram Active 40 MG PO AT BEDTIME December 26, 2023 12:00am Start: 08-13-2022 take 1 tablet by kayden th once daily citalopram (CeleXA) 10 MG tablet Take 10 mg by mouth daily. 0 08/13/2022 Active Start: 08-13-2022 take 1 tablet by kayden th once daily citalopram (CeleXA) 20 MG tablet TAKE 1 & 1/2 (ONE AND ONE-HALF) TABLETS BY MOUTH DAILY 0 08/13/2022 Active Start: 07-12-2021 take 20 mg by mouth once daily Citalopram Active 20 MG PO DAILY July 12, 2021 6:26pm Start: 07-12-2021 End: 12-26-2023 Citalopram 20 mg tablet Disc ontinued 30 mg PO DAILY July 12, 2021 1:00am December 26, 2023 1:32pm Start: 07-12-2021 End: 12-26-2023 take 30 mg by mouth once daily Citalopram Discontinued 30 MG PO DAILY July 12, 2021 1:00am December 26, 2023 1:32pm Start: 07-10-2019 End: 08-12-2019 take 1 tablet by mouth once daily Citalopram (Celexa) 20 mg tablet Discontinued 20 mg PO DAILY 90 July 10, 2019 1:00am August 12, 2019 6:06pm citalopram hydro bromide (CELEXA ORAL) Take 30 mg by mouth. 0 Active citalopram (CATY XA) 10 MG tablet Take 30 mg by mouth 0 Active Comment on above: Take 30 mg by mouth. clindamycin 10 mg/ml topical lotion (2 sources) Lincosamide Antibacterial Start: 024 End: 025 Clindamycin Phosphate (CLEOCIN T) 1 % lotion Indications: Hidradenitis suppurativa Apply to affected areas twice daily 60 mL 5 09/17/2023 09/17/2024 Active cyclobenzaprine hydrochloride 10 mg oral tablet (1 source) Muscle Relaxant Start: 021 take 1 tablet by mouth three times daily as needed for muscle spasms cyclobenzaprine (FLEXERIL) 10 MG tablet Take 1 tablet by mouth 3 times daily as needed for Muscle spasms 30 tablet 0 05/22/2021 Active doxycycline hyclate 100 mg oral tablet (10 sources) Tetracycline-class Drug Start: End: take 1 tablet by mouth twice daily doxycycline (VIBRA-TABS) 100 mg tablet Take 1 tablet by mouth two times a day for 14 days. 28 tablet 0 03/26/2024 04/09/2024 Active Start: 09-17-2023 End: 01-23-2024 take 1 tablet by mouth twice daily doxycycline 20 mg tablet Indications: Hidradenitis suppurativa Take 1 tablet by mouth two times a day. 60 tablet 2 09/17/2023 01/23/2024 Discontinued Start: 04-29-2023 End: 06-19-2023 take 1 capsule by mouth twice daily Doxycycline Monohydrate 100 mg capsule Discontinued 100 mg PO TWICE A DAY April 29, 2023 12:00am June 19, 2023 1:46pm DULoxetine 60 mg delayed release oral capsule [...] needed (pain) 60 tablet 0 05/22/2021 Active fluticasone propionate 0.05 mg/actuat metered dose nasal spray (19 sources) Corticosteroid Start: 10-19-2016 fluticasone (FLONASE) 50 mcg/actuation nasal spray Use 1 [place] in the nose. 0 10/19/2016 Active Start: 10-19-2016 fluticasone (F LONASE) 50 MCG/ACT nasal spray Indications: Middle ear effusion, bilateral 1 spray by Nasal route daily 1 Bottle 1 10/19/2016 Active Comment on above: Use 1 [place] in the n ose. L.ACIDOPH/B.LONG/L.PLAN T/B.LAC (PROBIOTIC ACIDOPHILUS BEADS ORAL) (17 sources) L.ACIDOPH/B.LONG /L.DAMIAN NT/B.LAC (PROBIOTIC ACIDOPHILUS BEADS ORAL) Take by mouth. 0 Active Comment on above: Take by mouth. Lactobacillus acidophilus (2 sources) Lactobacillus (PROBIOTIC ACIDOPHILUS PO) Take by mouth 0 Active lisdexamfetamine dimesylate 30 mg oral capsule (1 source) Central Nervous System Stimulant Start: 025 take 1 capsule by mouth once daily Lisdexamfetamine 30 mg capsule Active 30 mg PO DAILY February 25, 2025 12:00am loperamide hydrochloride 2 mg oral tablet (17 sources) Opioid Agonist Start: 017 take 1 tablet by mouth every six hours as needed Loperamide HCl (IMODIUM) 2 mg tab Take 1 tablet by mouth four times daily as needed. 100 tablet 1 01/22/2017 Active Comment on above: Take 1 tablet by kayden th four times daily as needed. nabumetone 500 mg oral tablet (1 source) Nonsteroidal Anti-inflammatory Drug Start: 021 take 1 tablet by mouth twice daily nabumetone (RELAFEN) 500 MG tablet Take 1 tablet by mouth 2 times daily 60 tablet 0 04/20/2021 Active ondansetron 4 mg disintegrating oral tablet (20 sources) Serotonin-3 Receptor Antagonist Start: 025 take 1 tablet by mouth every eight hours as needed for nausea Ondansetron 4 mg tablet,disintegrating Active 4 mg PO Q8H as needed for nausea February 25, 2025 12:00am Start: 02-10-2024 End: 01-03-2025 take 1 tablet by mouth every eight hours as needed for nausea Ondansetron 4 mg tablet,disintegrating Discontinued 4 mg PO EVERY 8 HOURS NEEDED as needed for Nausea September 10, 2024 11:37pm September 22, 2024 12:32pm Start: 11-13-2023 End: 02-10-2024 take 1 tablet by mouth every six hours as needed for nausea and vomiting Ondansetron 4 mg tablet,disintegrating Discontinued 4 mg PO EVERY 6 HOURS as needed for nausea and vomiting November 13, 2023 12:00am February 10, 2024 8:10pm Start: 12-20-2022 End: 12-26-2023 take 1 tablet by mouth every eight hours as needed for nausea and vomiting Ondansetron 4 mg tablet,disintegrating Discontinued 4 mg PO Q8H as needed for nausea and vomiting 9 March 26, 2023 12:00am December 26, 2023 1:33pm Start: 09-02-2022 End: 04-29-2023 take 2 tablets by mouth every eight hours as needed for nausea Ondansetron 4 mg tablet,disintegrating Discontinued 8 mg PO EVERY 8 HOURS NEEDED as needed for Nausea September 02, 2022 1:00am April 29, 2023 9:18am Start: 09-02-2022 End: 04-29-2023 take 8 mg by mouth every eight hours as needed Ondansetron Discontinued 8 MG PO EVERY 8 HOURS NEEDED September 02, 2022 1:00am April 29, 2023 9:18am Start: 03-27-2022 take 4 mg by mouth e very six hours as needed Ondansetron Active 4 MG PO EVERY 6 HOURS NEEDED March 27, 2022 10:00pm Start: 01-22-2022 End: 01-29-2022 take 1 tablet by mouth every six hours as needed ondansetron orally disintegrating (ZOFRAN ODT) 4 mg disintegrating tablet Take 1 tablet by mouth every 6 hours as needed for nausea/vomiting for up to 7 days. 20 tablet 0 01/22/2022 01/29/2022 Active Start: 12-26-2021 take 1 tablet by kayden th every eight hours as needed ondansetron (Zofran) 4 MG tablet Take 4 mg by mouth every 8 hours as needed. 0 12/26/2021 Active Start: 12-23-2018 End: 12-31-2018 take 1 tablet by mouth every eight hours as needed for nausea Ondansetron 4 MG tablet Discontinued 4 mg PO EVERY 8 HOURS NEEDED as needed for Nausea December 23, 2018 12:00am December 31, 2018 9:12am End: 12-26-2021 ondansetron HCl (ZOFRAN ORAL ) Take by mouth. 0 12/26/2021 Discontinued ondansetron HCl (ZOFRAN ORAL) Take by mouth. 0 Active Comment on above: Take by mouth. Take 1 tablet by kayden th every 8 hours as needed. Take 1 tablet by kayden th every 6 hours as needed for nausea/vomiting for up to 7 days. Take 1 tablet by kayden every 8 hours as needed for nausea/vomiting. pantoprazole 40 mg delayed release oral tablet (20 sources) Proton Pump Inhibitor Start: take 1 tablet by mouth once daily 30 minutes before breakfast Pantoprazole 40 mg tablet,delayed release (DR/EC) Active 40 mg PO daily November 09, 2024 12:00am take 30 minutes before breakfast every morning Start: 12-26-2023 End: 11-09-2024 take 40 mg by mouth once daily Pantoprazole (Protonix) [address] for susp in packet Discontinued 40 mg PO DAILY December 26, 2023 12:00am November 09, 2024 10:27am Start: 11-15-2023 End: 02-10-2024 take 1 tablet by mouth twice daily Pantoprazole 40 mg tablet,delayed release (DR/EC) Discontinued 40 mg PO TWICE A DAY November 15, 2023 12:00am February 10, 2024 8:11pm Start: 11-28-2021 End: 12-28-2021 take 1 tablet by mouth twice daily pantoprazole (ProtoNix) 40 MG EC tablet Take 40 mg by mouth 2 times daily. 0 12/25/2021 Active Start: 07-12-2021 take 40 mg by mouth once daily Pantoprazole Active 40 MG PO DAILY July 12, 2021 6:26pm Start: 07-17-2018 pantoprazole ( PROTONIX) 40 MG tablet Take 40 mg by mouth 0 07/17/2018 Active Comment on above: Take 1 tablet by kayden twice daily. polyethylene glycol 3350 48711 mg powder for oral solution (4 sources) Osmotic Laxative Start: End: polyethylene glycol 3350 (MIRALAX, GLYCOLAX) 17 gram packet Take 1 Packet by mouth once daily. Dissolve dose in 4 - 8 ounces of liquid and take as directed. 30 Packet 0 2021 12/29/2021 Active Comment on above: Take 1 Packet by kayden once daily. Dissolve dose in 4 - 8 ounces of liquid and take as directed. prochlorperazine 5 mg oral tablet (3 sources) Phenothiazine Start: take 1 tablet by mouth three times daily Prochlorperazine Maleate (Compazine) 5 mg tablet Active 5 MG PO THREE TIMES A DAY August 14, 2022 1:00am promethazine hydrochloride 25 mg oral tablet (20 sources) Phenothiazine Start: 023 End: take 1 tablet by mouth every six hours as needed for nausea Promethazine 25 mg tablet Active 25 mg PO EVERY 6 HOURS as needed for Nausea February 25, 2025 12:00am Start: 11-12-2022 End: 04-29-2023 Promethazine 25 mg supposito ry Discontinued 25 mg RC EVERY 6 HOURS as needed for nausea and vomiting November 12, 2022 12:00am April 29, 2023 9:18am Start: 11-01-2021 End: 03-14-2023 take 1 tablet by mouth every four hours as needed for nausea and vomiting promethazine (Phenergan) 25 MG tablet TAKE 1 TABLET BY MOUTH EVERY 4 HOURS NEEDED FOR NAUSEA AND VOMITING 0 11/02/2021 Active Start: 07-12-2021 End: 01-23-2022 take 1 tablet by mouth every six hours as needed promethazine (PHENERGAN) 12.5 mg tablet TAKE 1 TABLET BY MOUTH EVERY 6 HOURS NEEDED 100 tablet 3 01/23/2022 Active Start: 09-30-2018 take 2 tablets by mo [facility] every eight hours as needed for nausea promethazine (PHENERGAN) 12.5 MG tablet Take 2 tablets by mouth every 8 hours as needed for Nausea 30 tablet 0 09/30/2018 Active Comment on above: Take 1 tablet by kayden every 4 hours as needed for nausea/vomiting. Take 1 tablet by kayden every 6 hours as needed. TAKE 1 TABLET BY KAYDEN EVERY 6 HOURS NEEDED spironolactone 50 mg oral tablet (2 sources) Aldosterone Antagonist Start: End: take 1 tablet by mouth once daily spironolactone (ALDACTONE) 50 mg tablet Indications: Hidradenitis suppurativa Take 1 tablet by mouth once daily. 90 tablet 0 01/23/2024 04/22/2024 Active Completed/Discontinued Medications Medication Drug Class(es) Dates Sig (Normalized) Sig (Original) acetaminophen 325 mg / HYDROcodone bitartrate 5 mg oral tablet (15 sources) Opioid Agonist Start: 08-19-2024 End: 08-31-2024 Hydrocodone-Acetami nophen 5-325 mg tablet Discontinued 1 {tbl} PO EVERY 6 HOURS as needed for pain 5 August 28, 2024 August 30, 2024 1:00am August 31, 2024 1:09am Start: 02-04-2023 End: 04-29-2023 Hydrocodone-Acetaminophen 5- 325 mg tablet Discontinued 1 {tbl} PO EVERY 6 HOURS NEEDED as needed for Pain 10 February 04, 2023 April 29, 2023 8:55am Start: 02-04-2023 End: 04-29-2023 take 1 tablet by mouth every six hours as needed Hydrocodone-Acetaminophen Discontinued 1 TABLET PO EVERY 6 HOURS NEEDED 10 February 04, 2023 April 29, 2023 8:55am acetaminophen 325 mg / oxyCODONE hydrochloride 5 mg oral tablet (20 sources) Opioid Agonist Start: 11-10-2023 End: 02-10-2024 Oxycodone-Acetaminophen (Percocet) 5-325 mg tablet Discontinued 1 {tbl} PO Q8H as needed for pain 10 December 26, 2023 February 10, 2024 8:10pm Start: 07-23-2023 End: 11-10-2023 Oxycodone-Acetaminophen (Per cocet) 5-325 mg tablet Discontinued 1 {tbl} PO EVERY 6 HOURS as needed for pain 12 July 23, 2023 November 10, 2023 6:07pm Start: 05-03-2023 End: 06-05-2023 Oxycodone-Acetaminophen 5-32 5 mg tablet Discontinued 1 {tbl} PO EVERY 6 HOURS NEEDED as needed for Pain 19 01May 31, 2023 June 04, 2023 12:00am June 05, 2023 12:04am Start: 05-03-2023 End: 06-05-2023 take 1 tablet by mouth every six hours as needed Oxycodone-Acetaminophen Discontinued 1 TABLET PO EVERY 6 HOURS NEEDED 19 01May 31, 2023 June 05, 2023 12:04am Start: 11-22-2022 End: 04-29-2023 Oxycodone-Acetaminophen (Per cocet) 5-325 mg tablet Discontinued 1 {tbl} PO EVERY 6 HOURS as needed for pain 12 3 November 22, 2022 April 29, 2023 8:56am Start: 10-03-2022 take 1 tablet by kayden th every eight hours Oxycodone-Acetaminophen (Percocet) 5-325 mg tablet Active 1 TABLET PO Q8H 10 November 12, 2022 Start: 03-27-2022 End: 04-25-2022 Oxycodone-Acetaminophen 1 TA BLET tablet Discontinued 1 {tbl} PO EVERY 6 HOURS NEEDED as needed for pain 20 March 27, 2022 April 25, 2022 8:53am Start: 03-27-2022 End: 04-25-2022 take 1 tablet by mouth every six hours as needed Oxycodone-Acetaminophen Discontinued 1 TABLET PO EVERY 6 HOURS NEEDED 20 March 27, 2022 April 25, 2022 8:53am Start: 01-10-2020 End: 01-13-2020 Oxycodone-Acetaminophen 1 TA BLET tablet Discontinued 1 {tbl} PO EVERY 6 HOURS NEEDED as needed for Pain 12 January 10, 2020 January 12, 2020 12:00am January 13, 2020 12:02am Start: 01-10-2020 End: 01-13-2020 take 1 tablet by mouth every six hours as needed Oxycodone-Acetaminophen Discontinued 1 TABLET PO EVERY 6 HOURS NEEDED 12 January 10, 2020 January 13, 2020 12:02am 0.8 ml adalimumab 100 mg/ml auto-injector (3 sources) Tumor Necrosis Factor Constance Start: 09-22-2024 End: 11-09-2024 Adalimumab (Humira(Cf) Pen [id number]) 80 mg/0.8 mL pen injector kit Discontinued 0 SC .COMPLEX 3 September 22, 2024 1:00am November 09, 2024 9:52am inject two - 80 mg/0.8 mL pens on Day 1; inject one - 80 mg/0.8 mL pen on Day 15 of therapy subcut Blood Sugar Diagnostic (13 sources) Start: 06-03-2019 End: 09-29-2019 Blood Sugar Diagnostic Discontinued See Rx Instructions .Route .MEDSUPPLY June 03, 2019 11:11am September 29, 2019 11:01am As directed Start: 06-03-2019 End: 09-29-2019 Blood Sugar Diagnostic Disco ntinued See Rx Instructions .Route .MEDSUPPLY June 03, 2019 12:11pm September 29, 2019 12:01pm As directed Blood-Glucose Meter (13 sources) Start: 06-03-2019 End: 09-29-2019 Blood-Glucose Meter Disconti nued See Rx Instructions .Route .MEDSUPPLY June 03, 2019 11:11am September 29, 2019 11:01am As directed Start: 06-03-2019 End: 09-29-2019 Blood-Glucose Meter Disconti nued See Rx Instructions .Route .MEDSUPPLY June 03, 2019 12:11pm September 29, 2019 12:01pm As directed Blood-Glucose Meter (True Me trix Air Glucose Meter) misc (16 sources) Start: 05-21-2019 End: 06-03-2019 Blood-Glucose Meter (True Metrix Air Glucose Meter) misc Discontinued 0 .ROUTE .MEDSUPPLY 1 May 21, 2019 11:38am June 03, 2019 12:11pm As directed Start: 05-21-2019 End: 06-03-2019 Blood-Glucose Meter (True Me trix Air Glucose Meter) misc Discontinued 0 .ROUTE .MEDSUPPLY May 20, 2019 11:00pm June 03, 2019 11:11am As directed Start: 05-21-2019 End: 06-03-2019 Blood-Glucose Meter (True Me trix Air Glucose Meter) misc Discontinued 0 .ROUTE .MEDSUPPLY May 21, 2019 12:00am June 03, 2019 12:11pm As directed Blood-Glucose Meter 1 EACH misc (3 sources) Start: 06-03-2019 End: 09-29-2019 Blood-Glucose Meter 1 EACH misc Discontinued See Rx Instructions .Route .MEDSUPPLY June 03, 2019 12:11pm September 29, 2019 12:01pm As directed budesonide 3 mg delayed release oral capsule (3 sources) Corticosteroid Start: 08-13-2024 End: 11-09-2024 take 3 capsules by mouth once daily in the morning Budesonide 3 mg capsule,delayed,ex tend.release Discontinued 9 mg PO EVERY MORNING August 13, 2024 1:00am November 09, 2024 9:52am cefdinir 300 mg oral capsule (16 sources) Cephalosporin Antibacterial Start: 06-03-2019 End: 06-25-2019 take 1 capsule by mouth every twelve hours Cefdinir 300 MG capsule Discontinued 300 mg PO Q12H June 03, 2019 12:00am June 25, 2019 9:28am dicyclomine hydrochloride 20 mg oral tablet (20 sources) Anticholinergic Start: 11-10-2023 End: 08-13-2024 take 1 tablet by mouth four times daily as needed for pain Dicyclomine 20 mg tablet Discontinued 20 mg PO 4 TIMES DAILY NEEDED as needed for abdominal pain November 10, 2023 1:00am August 13, 2024 2:27pm Start: 12-20-2022 End: 06-06-2023 take 1 tablet by mouth four times daily as needed dicyclomine (BENTYL) 20 mg tablet Indications: Irritable bowel syndrome with diarrhea Take 1 tablet by mouth four times daily as needed. 120 tablet 5 06/06/2023 Active Start: 12-26-2021 End: 12-20-2022 take 1 tablet by mouth three times daily dicyclomine (BENTYL) 20 mg tablet Take 1 tablet by mouth three times daily. 90 tablet 5 06/19/2022 12/20/2022 Discontinued Start: 11-28-2021 End: 12-28-2021 take 1 capsule by mouth three times daily as needed for pain dicyclomine (Bentyl) 10 MG capsule TAKE 1 CAPSULE BY MOUTH THREE TIMES DAILY NEEDED FOR ABDOMINAL pain and bloating 0 11/28/2021 Active Start: 01-05-2019 End: 09-29-2019 take 1 tablet by mouth once daily as needed Dicyclomine 20 mg tablet Discontinued 20 mg PO DAILY NEEDED as needed for ibs January 05, 2019 12:00am September 29, 2019 12:01pm Start: 09-30-2018 take 1 tablet by kayden th three times daily as needed for pain dicyclomine (BENTYL) 20 MG tablet Take 1 tablet by mouth 3 times daily as needed (abdominal pain, diarrhea) 30 tablet 0 09/30/2018 Active Comment on above: Take 1 capsule by mo uth three times daily as needed (abdominal pain and bloating). Take 1 tablet by kayden th three times daily. Take 1 tablet by kayden th four times daily as needed. erythromycin 250 mg delayed release oral tablet (3 sources) Macrolide, Macrolide Antimicrobial Start: 11-30-19 End: 12-30-19 take 1 tablet by mouth three times daily at mealtime erythromycin DR (CELESTINO-TAB) 250 mg EC tablet Take 1 tablet by mouth three times daily with meals. 90 tablet 0 2021 12/26/2021 Discontinued Comment on above: Take 1 tablet by kayden th three times daily with meals. ferrous sulfate 325 mg oral tablet (16 sources) Start: 08-12-20 End: 09-29-19 take 1 tablet by mouth once daily Ferrous Sulfate 325 MG tablet Discontinued 325 mg PO DAILY August 12, 2019 1:00am September 29, 2019 12:02pm folic acid 1 mg oral tablet (3 sources) Start: 06-02-20 End: 11-10-19 take 1 tablet by mouth once daily Folic Acid 1 mg tablet Discontinued 1 mg PO daily June 02, 2024 12:00am November 09, 2024 9:53am gabapentin 300 mg oral capsule (4 sources) Anti-epileptic Agent Start: 02-10-20 End: 09-14-19 take 1 capsule by mouth at bedtime Gabapentin 300 mg capsule Discontinued 300 mg PO AT BEDTIME February 10, 2024 12:00am September 14, 2024 10:13am gabapentin (NEUR ONTIN) 300 MG capsule Take 300 mg by mouth daily.. 0 Active hyoscyamine sulfate 0.125 mg oral tablet (17 sources) Start: 07-21-2024 End: 09-14-2024 take 1 tablet by mouth every eight hours Hyoscyamine Sulfate 0.125 mg tablet Discontinued 0.125 mg PO EVERY 8 HOURS July 21, 2024 1:00am September 14, 2024 10:14am Start: 08-17-2021 End: 03-14-2023 take 1 tablet by mouth twice daily hyoscyamine SR (LEVBID) 0.375 mg 12 hr tablet TAKE 1 TABLET BY MOUTH TWICE DAILY 60 tablet 3 12/25/2021 03/14/2023 Discontinued (Course of therapy completed) Comment on above: Take 1 tablet by kayden th twice daily. TAKE 1 TABLET BY KAYDEN TH TWICE DAILY levoFLOXacin 500 mg oral tablet (7 sources) Quinolone Antimicrobial Start: 06-04-20 End: 06-14-20 take 1 tablet by mouth every twenty-four hours Levofloxacin 500 mg tablet Discontinued 500 mg PO Q24H 10 June 04, 2023 12:00am June 13, 2023 12:00am June 14, 2023 12:04am naproxen 500 mg oral tablet (20 sources) Nonsteroidal Anti-inflammatory Drug Start: 06-20-20 End: 08-13-20 take 1 tablet by mouth every eight hours as needed for pain Naproxen 500 mg tablet Discontinued 500 mg PO Q8H as needed for pain July 08, 2024 1:00am August 13, 2024 2:27pm Start: 04-26-2022 End: 06-20-2023 take 1 tablet by mouth every twelve hours Naproxen 500 mg tablet Discontinued 500 mg PO Q12H May 31, 2023 12:00am June 20, 2023 2:23pm norethindrone acetate 5 mg oral tablet (14 sources) Start: 04-19-2022 End: 04-25-2022 take 1 tablet by mouth twice daily, then take 1 tablet by mouth once daily Norethindrone Acetate (Aygestin) 5 mg tablet Discontinued 5 mg PO DAILY April 19, 2022 12:00am April 25, 2022 9:05am 5mg bid for 3 days then 5mg daily until bleeding stops oxyCODONE hydrochloride 5 mg oral capsule (18 sources) Opioid Agonist Start: 01-03-2025 End: 02-25-2025 take 1 capsule by mouth three times daily as needed for pain Oxycodone 5 mg capsule Discontinued 5 mg PO THREE TIMES A DAY as needed for pain 14 01January 03, 2025 February 25, 2025 2:26pm Start: 10-09-2024 End: 11-09-2024 take 1 tablet by mouth every eight hours as needed for pain Oxycodone 5 mg tablet Discontinued 5 mg PO Q8H as needed for pain 10 October 09, 2024 November 09, 2024 9:53am Start: 09-22-2024 End: 11-09-2024 take 1 capsule by mouth every six hours as needed for pain Oxycodone 5 mg capsule Discontinued 5 mg PO EVERY 6 HOURS as needed for pain 10 September 25, 2024 November 09, 2024 9:53am Start: 03-26-2023 End: 04-29-2023 take 1 capsule by mouth every six hours as needed for pain Oxycodone 5 mg capsule Discontinued 5 mg PO EVERY 6 HOURS as needed for pain 19 01March 26, 2023 April 29, 2023 8:56am Pnv Cmb#95-Ferrous Fumarate- Fa (13 sources) Start: 12-23-2018 End: 09-29-2019 Pnv Cmb#95-Ferrous Fumarate- Fa Discontinued 1 EACH PO DAILY December 23, 2018 8:03pm September 29, 2019 12:02pm Start: 12-23-2018 End: 09-29-2019 Pnv Cmb#95-Ferrous Fumarate- Fa Discontinued 1 EACH PO DAILY December 22, 2018 11:00pm September 29, 2019 11:02am Start: 12-23-2018 End: 09-29-2019 Pnv Cmb#95-Ferrous Fumarate- Fa Discontinued 1 EACH PO DAILY December 23, 2018 12:00am September 29, 2019 12:02pm Pnv Cmb#95-Ferrous Fumarate-Fa 1 EACH tablet (3 sources) Start: 12-23-2018 End: 09-29-2019 Pnv Cmb#95-Ferrous Fumarate-Fa 1 EACH tablet Discontinued 1 NMA PO DAILY December 23, 2018 12:00am September 29, 2019 12:02pm prazosin 1 mg oral capsule (13 sources) alpha-Adrenerg ic Constance Start: 10-28-2021 End: 03-14-2023 take 1 capsule by mouth three times daily prazosin (MINIPRESS) 1 mg cap Take 1 mg by mouth three times daily. 0 10/28/2021 03/14/2023 Discontinued (Course of therapy completed) Comment on above: Take 1 mg by mouth t hree times daily. predniSONE 20 mg oral tablet (20 sources) Start: 01-03-2025 End: 02-25-2025 take 2 tablets by mouth once daily Prednisone 20 mg tablet Discontinued 40 mg PO DAILY 20 January 03, 2025 12:00am February 25, 2025 2:27pm Start: 08-27-2024 End: 09-14-2024 take 2 tablets by mouth once daily Prednisone 20 mg tablet Discontinued 40 mg PO DAILY 06 06August 27, 2024 1:00am September 14, 2024 10:14am Start: 05-03-2023 End: 11-10-2023 take 2 tablets by mouth once daily Prednisone 20 mg tablet Discontinued 40 mg PO DAILY 10 May 03, 2023 12:00am November 10, 2023 6:07pm Start: 05-03-2023 End: 11-10-2023 take 40 mg by mouth once daily Prednisone Discontinued 40 MG PO DAILY 10 May 03, 2023 12:00am November 10, 2023 6:07pm Start: 03-26-2023 End: 04-29-2023 take 1 tablet by mouth once daily Prednisone 50 mg tablet Discontinued 50 mg PO DAILY 01 04March 26, 2023 12:00am April 29, 2023 8:56am Start: 02-04-2023 End: 04-29-2023 take 3 tablets by mouth once daily Prednisone 20 mg tablet Discontinued 60 mg PO DAILY February 04, 2023 12:00am April 29, 2023 8:56am Start: 02-04-2023 End: 04-29-2023 take 60 mg by mouth once daily Prednisone Discontinued 60 MG PO DAILY February 04, 2023 12:00am April 29, 2023 8:56am Start: 03-27-2022 End: 04-25-2022 take 3 tablets by mouth once daily Prednisone 20 MG tablet Discontinued 60 mg PO DAILY March 27, 2022 12:00am April 25, 2022 8:53am Start: 03-27-2022 End: 04-25-2022 take 60 mg by mouth once daily Prednisone Discontinued 60 MG PO DAILY March 27, 2022 12:00am April 25, 2022 8:53am Start: 01-22-2022 End: 01-27-2022 take 3 tablets by mouth once daily predniSONE (DELTASONE) 20 mg tablet Take 3 tablets by mouth once daily for 5 days. 15 tablet 0 01/22/2022 01/27/2022 Active Start: 11-28-2021 End: 03-14-2023 predniSONE (DELTASONE) 10 mg tablet Please take 4 tabs daily for 3 days, then 3 tabs daily for 3 days, then 2 tabs daily for 3 days, then 1 tab daily for 3 days, then 0.5 tabs daily for 4 days (take with food). 32 tablet 0 11/28/2021 03/14/2023 Discontinued (Course of therapy completed) Comment on above: Please take 4 tabs d aily for 3 days, then 3 tabs daily for 3 days, then 2 tabs daily for 3 days, then 1 tab daily for 3 days, then 0.5 tabs daily for 4 days (take with food). Take 3 tablets by mo [facility] once daily for 5 days. QUEtiapine 50 mg oral tablet (14 sources) Atypical Antipsychotic Start: End: take 1 tablet by mouth at bedtime Quetiapine 50 mg tablet Discontinued 50 mg PO AT BEDTIME December 26, 2023 12:00am February 10, 2024 8:12pm take 1 tablet by kayden once daily at bedtime QUEtiapine (SEROQUEL) 25 mg tablet Take 25 mg by mouth daily at bedtime. 0 Active Comment on above: Take 25 mg by mouth daily at bedtime. rOPINIRole 0.25 mg oral tablet (7 sources) Nonergot Dopamine Agonist Start: 08-13-2022 End: 01-09-2024 take 1 tablet by mouth at bedtime Ropinirole 0.25 mg tablet Discontinued 0.25 mg PO AT BEDTIME November 15, 2023 12:00am December 26, 2023 1:33pm administer 1-3 hours before bedtime sucralfate 1000 mg oral tablet (12 sources) Aluminum Complex Start: 08-28-2024 End: 11-09-2024 take 1 tablet by mouth once at bedtime Sucralfate 1 gram tablet Discontinued 1 g PO before meals and at bedtime 56 August 28, 2024 1:00am November 09, 2024 10:28am Take an hour before meals and at bedtime Start: 06-02-2024 End: 08-13-2024 Sucralfate 1 gram tablet Discontinued 1 g PO before meals and at bedtime 120 June 02, 2024 12:00am August 13, 2024 2:27pm Stop taking 5 days prior to scheduled EGD. Then resume after. Start: 11-10-2023 End: 07-08-2024 take 1 mL by mouth twice daily as needed for pain Sucralfate (Carafate) 100 mg/mL suspension Discontinued 10 mL PO TWICE A DAY as needed for abdominal pain 400 November 10, 2023 10:53pm July 08, 2024 4:17pm sulfamethoxazole 800 mg / trimethoprim 160 mg oral tablet (7 sources) Dihydrofolate Reductase Inhibitor Antibacterial, Sulfonamide Antimicrobial Start: 06-19-2023 End: 06-29-2023 Sulfamethoxazole-Trimethopri m 800-160 mg tablet Discontinued 1 {tbl} PO TWICE A DAY 21 06June 19, 2023 12:00am June 28, 2023 12:00am June 29, 2023 12:38am Start: 06-19-2023 End: 06-29-2023 take 1 tablet by mouth twice daily Sulfamethoxazole-Trimethoprim Discontinu ed 1 TABLET PO TWICE A DAY 21 06June 19, 2023 12:00am June 29, 2023 12:38am sulfaSALAzine 500 mg delayed release oral tablet (3 sources) Aminosalicylate Start: 06-02-2024 End: 07-08-2024 take 0.5 g by mouth twice daily Sulfasalazine 500 mg tablet,delayed release (DR/EC) Discontinued 0.5 g PO TWICE A DAY June 02, 2024 12:00am July 08, 2024 4:17pm traZODone hydrochloride 50 mg oral tablet (13 sources) Serotonin Reuptake Inhibitor Start: 10-27-2021 End: 03-14-2023 take 1 tablet by mouth once daily at bedtime traZODone (DESYREL) 50 mg tablet Take 50 mg by mouth daily at bedtime. 0 10/27/2021 03/14/2023 Discontinued (Course of therapy completed) Comment on above: Take 50 mg by mouth daily at bedtime. triamcinolone acetonide 10 mg/ml injectable suspension (4 sources) Corticosteroid Start: 03-26-2024 End: 03-26-2024 triamcinolone acetonide 5 mg injection (KeNALog 10) Start: 01-23-2024 End: 01-23-2024 triamcinolone acetonide 5 mg injection (KeNALog 10) Problems Active Problems Problem Classification Problem Date Documented Da te Episodic/Chronic Abdominal pain (20 sources) Right upper quadrant pain; Translations: [Lower abdominal pain] Onset: 7 07-20-2018 Episodic Anxiety disorders (20 sources) Anxiety; Translations: [Mixed anxiety and depressive disorder] Onset: 5 06-09-2015 Chronic Diabetes or abnormal glucose tolerance complicating ; childbirth; or the puerperium (16 sources) Gestational diabetes mellitus; Translations: [Gestational diabetes mellitus in , unspecified control] 04-25-2022 Episodic Diseases of mouth; excluding dental (5 sources) Sialoadenitis of the submandibular gland; Translations: [Sialoadenitis, unspecified] Onset: 4 01-09-2024 Episodic Esophageal disorders (20 sources) Gastroesophageal reflux disease; Translations: [Gastro-esophageal reflux disease without esophagitis] 08-14-2018 Chronic Fluid and electrolyte disorders (18 sources) Acute hypokalemia; Translations: [Hypokalemia] 11-22-2022 Episodic Gastritis and duodenitis (10 sources) Gastritis; Translations: [Gastritis, unspecified, without bleeding] 11-10-2023 Episodic Lymphadenitis (5 sources) Lymphadenitis; Translations: [Nonspecific lymphadenitis, unspecified] Onset: 4 01-09-2024 Episodic Nonspecific chest pain (2 sources) Chest pain; Translations: [Chest pain, unspecified] Onset: 5 02-25-2025 Episodic Other bone disease and musculoskeletal deformities (6 sources) Costal chondritis; Translations: [Chondrocostal junction syndrome [Tietze]] 06-15-2024 Episodic Other complications of (3 sources) Anemia of ; Translations: [Anemia complicating , unspecified trimester] Chronic Other complications of (3 sources) Anxiety in ; Translations: [Other mental disorders complicating , unspecified trimester] Episodic Other complications of (6 sources) ; Translations: [Supervision of with history of infertility, unspecified trimester] Episodic Other complications of (16 sources) Abdominal pain in ; Translations: [Other specified related conditions, third trimester] 06-25-2019 Episodic Comment on above: no PTL see 06/06 in [facility]amiro [facility]ile Other ear and sense organ disorders (1 source) Otitis externa; Translations: [Unspecified otitis externa, right ear] 02-25-2025 Chronic Other female genital disorders (14 sources) Abnormal uterine bleeding; Translations: [Other specified abnormal uterine and vaginal bleeding] 04-27-2022 Chronic Other female genital disorders (1 source) Unspecified condition associated with female genital organs and menstrual cycle; Translations: [Unspecified symptom associated with female genital organs] 05-31-2023 Episodic Other gastrointestinal disorders (3 sources) Irritable bowel syndrome with diarrhea; Translations: [Irritable bowel syndrome with diarrhea] Chronic Other gastrointestinal disorders (1 source) Irritable bowel syndrome with diarrhea; Translations: [Irritable bowel syndrome with diarrhea] Onset: 3 Chronic Other gastrointestinal disorders (20 sources) Diarrhea; Translations: [Diarrhea, unspecified] 09-10-2016 Episodic Other gastrointestinal disorders (17 sources) Dysphagia; Translations: [Dysphagia, unspecified] 08-14-2018 Episodic Other gastrointestinal disorders (20 sources) History of Crohns disease; Translations: [Personal history of other diseases of the digestive system] 11-30-2021 Episodic Other gastrointestinal disorders (3 sources) Diarrhea, unspecified; Translations: [Diarrhea, unspecified type] Onset: 7 Episodic Other nervous system disorders (2 sources) Pain of skin; Translations: [Other disturbances of skin sensation] 01-23-2024 Episodic Other nervous system disorders (1 source) Skin sensation disturbance; Translations: [Unspecified disturbances of skin sensation] 03-26-2024 Episodic Other skin disorders (10 sources) Hidradenitis; Translations: [Hidradenitis suppurativa] Onset: 4 04-29-2023 Episodic Comment on above: plastics consult, s/ p 30 days doxycycline. Other skin disorders (3 sources) Hidradenitis suppurativa; Translations: [Hidradenitis] 04-29-2023 Episodic Other skin disorders (5 sources) Hidradenitis suppurativa; Translations: [Hidradenitis suppurativa] 01-23-2024 Episodic Other upper respiratory disease (6 sources) Seasonal allergic rhinitis; Translations: [Other seasonal allergic rhinitis] Onset: 5 06-11-2016 Chronic Other upper respiratory disease (17 sources) Seasonal allergy; Translations: [Other seasonal allergic rhinitis] Onset: 5 08-28-2021 Chronic Otitis media and related conditions (16 sources) Infection of ear; Translations: [Otitis media, unspecified, unspecified ear] 06-25-2019 Episodic Ovarian cyst (20 sources) Cyst of ovary; Translations: [Unspecified ovarian cyst, left side] 05-21-2022 Episodic Comment on above: 05/21/22 repeat US in 2-3 months Polyhydramnios and other problems of amniotic cavity (3 sources) Oligohydramnios; Translations: [Oligohydramnios, unspecified trimester, not applicable or unspecified] Episodic Regional enteritis and ulcerative colitis (20 sources) Crohn's disease of small intestine; Translations: [Ulcerative colitis] Onset: 7 Resolved: 8 07-20-2018 Chronic Comment on above: no meds, remission Skin and subcutaneous tissue infections (10 sources) Abscess of groin; Translations: [Cutaneous abscess of groin] Onset: 3 05-31-2023 Episodic Comment on above: cultures sent, wait for results prior to new antibiotic treatment. Sprains and strains (13 sources) Low back strain; Translations: [Strain of muscle, fascia and tendon of lower back, initial encounter] 08-22-2022 Episodic Substance-related disorders (20 sources) Nicotine dependence; Translations: [Nicotine dependence, unspecified, uncomplicated] Onset: 2 11-28-2021 Chronic Unclassified (1 source) pain under left breast for 2 weeks, sent to ED by PCP for eval Onset: 4 Past or Other Problems Problem Classification Problem Date Documented Date Episodic/Chronic Biliary tract disease (11 sources) Biliary calculus; Translations: [Calculus of gallbladder without cholecystitis without obstruction] Onset: 10-08-2024 08-27-2024 Episodic Cardiac dysrhythmias (20 sources) Palpitations; Translations: [Palpitations] Onset: 06-09-2015 06-09-2015 Episodic Hemorrhoids (4 sources) Internal hemorrhoids grade I; Translations: [First degree hemorrhoids] Onset: 04-10-2022 06-15-2022 Episodic Inflammatory diseases of female pelvic organs (4 sources) Abscess of labia; Translations: [Abscess of vulva] Onset: 04-10-2022 06-15-2022 Episodic Malaise and fatigue (5 sources) Fatigue; Translations: [Other fatigue] Onset: 09-06-2022 09-06-2022 Episodic Nausea and vomiting (20 sources) Nausea and vomiting; Translations: [Nausea with vomiting, unspecified] Onset: 10-01-2016 10-01-2016 Episodic Neoplasms of unspecified nature or uncertain behavior (5 sources) Neoplasm of uncertain behavior of skin; Translations: [Neoplasm of uncertain behavior of skin] Onset: 09-21-2020 09-21-2020 Episodic Noninfectious gastroenteritis (20 sources) Colitis; Translations: [Noninfective gastroenteritis and colitis, unspecified] Onset: 06-19-2015 Resolved: 03-03-2018 03-03-2018 Episodic Open wounds of extremities (1 source) Laceration without foreign body of right index finger without damage to nail, initial encounter; Translations: [Laceration of right index finger without foreign body without damage to nail, initial encounter] Onset: 09-08-2023 Episodic Other complications of (8 sources) Maternal tobacco use; Translations: [Smoking (tobacco) complicating , unspecified trimester] Onset: 09-21-2020 09-21-2020 Episodic Other female genital disorders (5 sources) Labial cyst; Translations: [Vulvar cyst] Onset: 09-21-2020 09-21-2020 Episodic Spondylosis; intervertebral disc disorders; other back problems (6 sources) Acute low back pain; Translations: [Low back pain] Onset: 05-22-2021 Episodic Superficial injury; contusion (6 sources) Contusion of trunk; Translations: [Contusion of lower back and pelvis, initial encounter] Onset: 04-20-2021 Episodic Results Test Name Value Interpretation Reference Range Facility Absolute lymphocyte countOrd ered By: Rad Wilkerson on 02-25-2025 Lymphocytes Auto (Unsp spec) [#/Vol] 4.59 10*3/uL High 0.83-4.51 [facility] Absolute neutrophil countOrd ered By: Rad Wilkerson on 02-25-2025 Neutrophils (Bld) [#/Vol] 8.0 10*3/uL High 2.0-7.7 [facility] Anion gap in Serum or Plasma Ordered By: Rad Wilkerson on 02-25-2025 Anion gap [Moles/Vol] 16 mmol/L High 5-15 [facility] Automated lymphocyte count a s percentage of total leukocytesOrdered By: Rad Wilkerson on 02-25-2025 Lymphocytes/100 WBC Auto (Unsp spec) 32.9 % 19-41 [facility] BUN/creatinine ratioOrdered By: Rad Wilkerson on 02-25-2025 Urea nitrogen/Creatinine [Mass ratio] 22.6 mg/mg High - [facility] Basic Metabolic Profile (BMP )on 02-25-2025 BUN/CRE 22.6 RATIO High - [facility] Comment on above: Performed By: #### L 100.0100, L500.2500, L501.4021, L300.8000, L501.2450 ####[facility] [id number] [place], [address] Calcium [Mass/Vol] 9.8 mg/dL Normal 7.6-11.0 [facility] Comment on above: Performed By: #### L 100.0100, L500.2500, L501.4021, L300.8000, L501.2450 ####[facility] [id number] [place], [address] Chloride [Moles/Vol] 104 mmol/L Normal 98-108 [facility] Comment on above: Performed By: #### L 100.0100, L500.2500, L501.4021, L300.8000, L501.2450 ####[facility] [id number] [place], [address] CO2 [Moles/Vol] 18.3 mmol/L Low 21.0-32.0 [facility] Comment on above: Performed By: #### L 100.0100, L500.2500, L501.4021, L300.8000, L501.2450 ####[facility] [address] [place], [address] Creatinine [Mass/Vol] 0.66 mg/dL Low 0.70-1.20 [facility] Comment on above: Performed By: #### L 100.0100, L500.2500, L501.4021, L300.8000, L501.2450 ####[facility] [address] [place], [address] ECRCL 111.95 ml/min Normal 50-250 [facility] Comment on above: Performed By: #### L 100.0100, L500.2500, L501.4021, L300.8000, [id number] ####[facility] [id number] [place], [address] GAP 16 High 5-15 [facility] Comment on above: Performed By: #### L 100.0100, L500.2500, L501.4021, L300.8000, [id number] ####[facility] [address] [place], [address] GFR/1.73 sq M.predicted among non-blacks MDRD (S/P/Bld) [Vol rate/Area] 116 mL/min/{1.73_m2} Normal >60 [facility] Comment on above: Result Comment: mL/m in/1.73m2 CKD-EPI Creatinine Equation (2020) Performed By: #### L 100.0100, L500.2500, L501.4021, L300.8000, L501.2450 ####[facility] [address] [place], [address] Glucose [Mass/Vol] 90 mg/dL Normal 70-99 [facility] Comment on above: Performed By: #### L 100.0100, L500.2500, L501.4021, L300.8000, L501.2450 ####[facility] [address] [place], [address] Potassium [Moles/Vol] 3.5 mmol/L Normal 3.3-5.1 [facility] Comment on above: Performed By: #### L 100.0100, L500.2500, L501.4021, L300.8000, L501.2450 ####[facility] [address] [place], [address] Sodium [Moles/Vol] 138 mmol/L Normal 133-145 [facility] Comment on above: Performed By: #### L 100.0100, L500.2500, L501.4021, L300.8000, L501.2450 ####[facility] [address] [place], [address] Urea nitrogen [Mass/Vol] 15 mg/dL Normal 4-19 [facility] Comment on above: Performed By: #### L 100.0100, L500.2500, L501.4021, L300.8000, L501.2450 ####[facility] [address] [place], [place], [id number] Basophil percentageOrdered B y: Rad Wilkerson on 02-25-2025 Basophils/100 WBC (Bld) 0.6 % 0-1 [facility] CBC W/Diff, Automatedon 02-01 SMEAR COMMENT SCANNED Normal [facility] Comment on above: Performed By: #### L 100.0100, L500.2500, L501.4021, L300.8000, L501.2450 ####[facility] [address] [place], [place], [id number] Carbon dioxide, total [Moles /volume] in Central venous bloodOrdered By: Rad Wilkerson on 02-25-2025 CO2 [Moles/Vol] 18.3 mmol/L Low 21.0-32.0 [facility] Chest 1 View (Portable)on Chest 1 View (Portable) Normal [facility] Chloride assayOrdered By: Colin Wilkerson on 02-25-2025 Chloride [Moles/Vol] 104 mmol/L 98-108 [facility] D-Dimer Quantitative (DVT/PE )on 02-25-2025 D-DIMER QUANT < 0.27 Low 0.27-0.49 [facility] Comment on above: Result Comment: NORM AL D-Dimer level (<0.50) indicates no DVT or PE. Performed By: #### L 100.0100, L500.2500, L501.4021, L300.8000, L501.2450 ####[facility] [address] [place], [address] Emergency Department Summary on 02-25-2025 Emergency Department Summary Normal [facility] Eosinophil percentageOrdered By: Rad Wilkerson on 02-25-2025 Eosinophils/100 WBC (Bld) 1.9 % 0-5 [facility] Erythrocyte distribution wid th ratioOrdered By: Rad Wilkerson on 02-25-2025 Erythrocyte distribution width (RBC) [Ratio] 13.3 % 11.6-14.6 [facility] Erythrocyte distribution wid th standard deviationOrdered By: Rad Wilkerson on 02-25-2025 Erythrocyte distribution width (RBC) [Ratio] 41.4 fl 35.1-43.9 [facility] Glomerular filtration rate ( GFR) estimation/1.73 sq m using serum, plasma, or whole bOrdered By: Rad Wilkerson on 02-25-2025 GFR/1.73 sq M.predicted among non-blacks MDRD (S/P/Bld) [Vol rate/Area] 116 mL/min/{1.73_m2} >60 [facility] Comment on above: mL/min/1.73m2 CKD-EP I Creatinine Equation (2020) Hematocrit Auto (Bld) [Volum e fraction]Ordered By: Rad Wilkerson on 02-25-2025 Hematocrit (Bld) [Volume fraction] 41.1 % 37-47 [facility] Hemoglobin measurementOrdere d By: Rad Wilkerson on 02-25-2025 Hemoglobin (Bld) [Mass/Vol] 14.0 g/dL 12.0-15.0 [facility] Immature granulocytes/100 WB C Auto (Bld)Ordered By: Rad Wilkerson on 02-25-2025 Immature granulocytes/100 WBC (Bld) 0.600 % 0.0-0.9 [facility] Comment on above: IG% - Immature Granu locytes (promyelocytes, myelocytes and metamyelocytes) > 1% indicates that a LEFT SHIFT is Present. L499.0042on 02-25-2025 Trop T High Sen Normal <=14 [facility] Comment on above: Result Comment: Canc elled via OM: Order cancelled - Patient discharged Performed By: #### L 499.0042 ####[facility] [address] [place], [address] L499.0043on 02-25-2025 Trop T High Sen Normal <=14 [facility] Comment on above: Result Comment: Canc elled via OM: Order cancelled - Patient discharged Performed By: #### L 499.0043 ####[facility] [address] [place], [address] L501.4021on 02-25-2025 Trop T High Sen < 6 Normal <=14 [facility] Comment on above: Performed By: #### L 100.0100, L500.2500, L501.4021, L300.8000, L501.2450 ####[facility] [address] [place], [address] Lipaseon 02-25-2025 Lipase [Catalytic activity/Vol] 28 U/L Normal 13-75 [facility] Comment on above: Result Comment: Maude peres note:LIPASE revised reference range effective 22.New Lipase methodology. Expected to produce lower valuesthan the previous assay method.NEW Reference Range: 13 - 75 U/L Performed By: #### L 100.0100, L500.2500, L501.4021, L300.8000, L501.2450 ####[facility] [address] [place], [address] Lipase measurementOrdered By : Rad Wilkerson on 02-25-2025 Lipase [Catalytic activity/Vol] 28 U/L 13-75 [facility] Comment on above: Please note:LIPASE r evised reference range effective 22. New Lipase methodology. Expected to produce lower values than the previous assay method. NEW Reference Range: 13 - 75 U/L MCV (mean corpuscular volume ) determinationOrdered By: Rad Wilkerson on 02-25-2025 MCV (RBC) [Entitic vol] 86.0 fL 81-99 [facility] Mean corpuscular hemoglobin (MCH) determinationOrdered By: Rad Wilkerson on 02-25-2025 MCH (RBC) [Entitic mass] 29.3 pg 27.0-32.0 [facility] Mean corpuscular hemoglobin concentration (MCHC) determinationOrdered By: Rad Wilekrson on 02-25-2025 MCHC (RBC) [Mass/Vol] 34.1 g/dL 32-36 [facility] Mean platelet volume determi nationOrdered By: Rad Wilkerson on 02-25-2025 Platelet mean volume (Bld) [Entitic vol] 10.4 fL 6.2-12.0 [facility] Monocyte percentageOrdered B y: Rad Wilkerson on 02-25-2025 Monocytes/100 WBC (Bld) 6.6 % 0-10 [facility] Neutrophil percentageOrdered By: Rad Wilkerson on 02-25-2025 Neutrophils/100 WBC (Bld) 57.4 % 47-70 [facility] Nucleated red blood cell per centageOrdered By: Rad Wilkerson on 02-25-2025 Nucleated RBC/100 WBC (Bld) [Ratio] 0 % 0-5 [facility] Platelet countOrdered By: Colin Wilkerson on 02-25-2025 Platelets (Bld) [#/Vol] 471 10*3/uL High 150-450 [facility] Potassium measurement (mass/ volume)Ordered By: Rad Wilkerson on 02-25-2025 Potassium (Unsp spec) [Mass/Vol] 3.5 mmol/L 3.3-5.1 [facility] ,Serum,hCG Quali.on 02-25-2025 HCG, SERUM QUAL Negative Normal [facility] Comment on above: Performed By: #### L 700.6800 ####[facility] [address] [facility] [place], [place], [id number] RBC Auto (Bld) [#/Vol]Ordere d By: Rad Wilkerson on 02-25-2025 RBC (Bld) [#/Vol] 4.78 10*6/uL 4.2-5.4 [facility] Serum beta-hCG test, qualita tiveOrdered By: Rad Wilkerson on 02-25-2025 Beta HCG ( test) Ql Negative [facility] Serum creatinine measurement (mass/volume)Ordered By: Rad Wilkerson on 02-25-2025 Creatinine [Mass/Vol] 0.66 mg/dL Low 0.70-1.20 [facility] Serum glucose measurement (m ass/volume)Ordered By: Rad Wilkerson on 02-25-2025 Glucose [Mass/Vol] 90 mg/dL 70-99 [facility] Serum or plasma calcium caitie urement (mass/volume)Ordered By: Rad Wilkerson on 02-25-2025 Calcium [Mass/Vol] 9.8 mg/dL 7.6-11.0 [facility] Serum or plasma urea nitroge n measurement (mass/volume)Ordered By: Rad Wilkerson on 02-25-2025 Urea nitrogen [Mass/Vol] 15 mg/dL 4-19 [facility] Sodium levelOrdered By: Rad Wilkerson on 02-25-2025 Sodium [Moles/Vol] 138 mmol/L 133-145 [facility] Troponin T.cardiac [Mass/vol ume] in Serum or Plasma by High sensitivity methodOrdered By: Rad Wilkerson on 02-25-2025 Troponin T.cardiac High sensitivity method [Mass/Vol] < 6 ng/L <14 [facility] White blood cell (WBC) count Ordered By: Rad Wilkerson on 02-25-2025 WBC (Bld) [#/Vol] 14.0 10*3/uL High 4.4-11.0 [facility] Abdomen/Pelvis W IV Cont ONL Yon 01-03-2025 Abdomen/Pelvis W IV Cont ONLY Normal [facility] Absolute lymphocyte countOrd ered By: Erick Ackerman on 01-03-2025 Lymphocytes Auto (Unsp spec) [#/Vol] 4.82 10*3/uL High 0.83-4.51 [facility] Absolute neutrophil countOrd ered By: Erick Ackerman on 01-03-2025 Neutrophils (Bld) [#/Vol] 6.5 10*3/uL 2.0-7.7 [facility] Anion gap in Serum or Plasma Ordered By: Erick Ackerman on 01-03-2025 Anion gap [Moles/Vol] 12 mmol/L 5-15 [facility] Automated lymphocyte count a s percentage of total leukocytesOrdered By: Erick Ackerman on 01-03-2025 Lymphocytes/100 WBC Auto (Unsp spec) 38.6 % 19-41 [facility] BUN/creatinine ratioOrdered By: Erick Ackerman on 01-03-2025 Urea nitrogen/Creatinine [Mass ratio] 27.1 mg/mg High 10-20 [facility] Basophil percentageOrdered B y: Erick Ackerman on 01-03-2025 Basophils/100 WBC (Bld) 1.0 % 0-1 [facility] Bilirubin Test strip Ql (U)O rdered By: Erick Ackerman on 01-03-2025 Bilirubin Ql (U) Negative Negative [facility] Bilirubin, totalOrdered By: Erick Ackerman on 01-03-2025 Bilirubin [Mass/Vol] mg/dL 0.00-1.30 [facility] CBC W/Diff, Automatedon PLT EST A Normal ADEQ [facility] Comment on above: Performed By: #### L 100.0100, L500.4050, L700.6800, L501.2450 ####[facility] [address] [place], [place], [id number] RED CELL MORPH NORM C+C Normal NORM C C [facility] Comment on above: Performed By: #### L 100.0100, L500.4050, L700.6800, L501.2450 ####[facility] [address] [place], [address] Carbon dioxide, total [Moles /volume] in Central venous bloodOrdered By: Erick Ackerman on 01-03-2025 CO2 [Moles/Vol] 20.8 mmol/L Low 21.0-32.0 [facility] Chloride assayOrdered By: Lucian Ackerman on 01-03-2025 Chloride [Moles/Vol] 105 mmol/L 98-108 [facility] Comprehensive Metabolic Prof ilon 01-03-2025 Albumin [Mass/Vol] 4.2 g/dL Normal 3.5-5.0 [facility] Comment on above: Performed By: #### L 100.0100, L500.4050, L700.6800, L501.2450 ####[facility] [address] [place], [address] Albumin/Globulin [Mass ratio] 1.6 {ratio} Normal 0.9-2.4 [facility] Comment on above: Performed By: #### L 100.0100, L500.4050, L700.6800, L501.2450 ####[facility] [address] [place], [address] ALK PHOS 79 U/L Normal 35-104 [facility] Comment on above: Performed By: #### L 100.0100, L500.4050, L700.6800, L501.2450 ####[facility] [address] [place], [address] ALT [Catalytic activity/Vol] 14 U/L Normal <=34 [facility] Comment on above: Performed By: #### L 100.0100, L500.4050, L700.6800, L501.2450 ####[facility] [address] [place], [address] AST [Catalytic activity/Vol] 17 U/L Normal <=31 [facility] Comment on above: Performed By: #### L 100.0100, L500.4050, L700.6800, L501.2450 ####[facility] [address] [place], [address] BUN/CRE 27.1 RATIO High 10-20 [facility] Comment on above: Performed By: #### L 100.0100, L500.4050, L700.6800, L501.2450 ####[facility] [address] [place], [address] Calcium [Mass/Vol] 9.2 mg/dL Normal 7.6-11.0 [facility] Comment on above: Performed By: #### L 100.0100, L500.4050, L700.6800, L501.2450 ####[facility] [address] [place], [address] Chloride [Moles/Vol] 105 mmol/L Normal 98-108 [facility] Comment on above: Performed By: #### L 100.0100, L500.4050, L700.6800, L501.2450 ####[facility] [address] [place], [address] CO2 [Moles/Vol] 20.8 mmol/L Low 21.0-32.0 [facility] Comment on above: Performed By: #### L 100.0100, L500.4050, L700.6800, L501.2450 ####[facility] [address] [place], [address] Creatinine [Mass/Vol] 0.61 mg/dL Low 0.70-1.20 [facility] Comment on above: Performed By: #### L 100.0100, L500.4050, L700.6800, L501.2450 ####[facility] [address] [place], [address] ECRCL 123.25 ml/min Normal 50-250 [facility] Comment on above: Performed By: #### L 100.0100, L500.4050, L700.6800, L501.2450 ####[facility] [address] [place], [address] GAP 12 Normal 5-15 [facility] Comment on above: Performed By: #### L 100.0100, L500.4050, L700.6800, L501.2450 ####[facility] [address] [place], [address] GFR/1.73 sq M.predicted among non-blacks MDRD (S/P/Bld) [Vol rate/Area] 118 mL/min/{1.73_m2} Normal >60 [facility] Comment on above: Result Comment: mL/m in/1.73m2 CKD-EPI Creatinine Equation (2020) Performed By: #### L 100.0100, L500.4050, L700.6800, L501.2450 ####[facility] [address] [place], [address] Globulin (S) [Mass/Vol] 2.6 g/dL Normal 2.2-4.2 [facility] Comment on above: Performed By: #### L 100.0100, L500.4050, L700.6800, L501.2450 ####[facility] [address] [place], [address] Glucose [Mass/Vol] 103 mg/dL High 70-99 [facility] Comment on above: Performed By: #### L 100.0100, L500.4050, L700.6800, L501.2450 ####[facility] [address] [place], [address] Potassium [Moles/Vol] 3.6 mmol/L Normal 3.3-5.1 [facility] Comment on above: Performed By: #### L 100.0100, L500.4050, L700.6800, L501.2450 ####[facility] [address] [place], [address] Sodium [Moles/Vol] 138 mmol/L Normal 133-145 [facility] Comment on above: Performed By: #### L 100.0100, L500.4050, L700.6800, L501.2450 ####[facility] [address] [place], [address] T BILI < 0.15 Normal 0.00-1.30 [facility] Comment on above: Performed By: #### L 100.0100, L500.4050, L700.6800, L501.2450 ####[facility] [address] [place], [place], [address] T PROT 6.8 g/dL Normal 5.9-8.4 [facility] Comment on above: Performed By: #### L 100.0100, L500.4050, L700.6800, L501.2450 ####[facility] [address] [place], [address] Urea nitrogen [Mass/Vol] 16 mg/dL Normal 4-19 [facility] Comment on above: Performed By: #### L 100.0100, L500.4050, L700.6800, L501.2450 ####[facility] [address] [place], [place], [address] Emergency Department Summary on 01-03-2025 Emergency Department Summary Normal [facility] Eosinophil percentageOrdered By: Erick Ackerman on 01-03-2025 Eosinophils/100 WBC (Bld) 2.0 % 0-5 [facility] Erythrocyte distribution wid th ratioOrdered By: Erick Ackerman on 01-03-2025 Erythrocyte distribution width (RBC) [Ratio] 13.4 % 11.6-14.6 [facility] Erythrocyte distribution wid th standard deviationOrdered By: Erick Ackerman on 01-03-2025 Erythrocyte distribution width (RBC) [Ratio] 42.0 fl 35.1-43.9 [facility] Erythrocyte morphology asses smentOrdered By: Erick Ackerman on 01-03-2025 RBC morphology finding Nom (Bld) NORM C+C NORMAL NORM C&C [facility] Glomerular filtration rate ( GFR) estimation/1.73 sq m using serum, plasma, or whole bOrdered By: Erick Ackerman on 01-03-2025 GFR/1.73 sq M.predicted among non-blacks MDRD (S/P/Bld) [Vol rate/Area] 118 mL/min/{1.73_m2} >60 [facility] Comment on above: mL/min/1.73m2 CKD-EP I Creatinine Equation (2020) Hematocrit Auto (Bld) [Volum e fraction]Ordered By: Erick Ackerman on 01-03-2025 Hematocrit (Bld) [Volume fraction] 39.9 % 37-47 [facility] Hemoglobin measurementOrdere d By: Erick Ackerman on 01-03-2025 Hemoglobin (Bld) [Mass/Vol] 13.7 g/dL 12.0-15.0 [facility] Immature granulocytes/100 WB C Auto (Bld)Ordered By: Erick Ackerman on 01-03-2025 Immature granulocytes/100 WBC (Bld) 0.400 % 0.0-0.9 [facility] Comment on above: IG% - Immature Granu locytes (promyelocytes, myelocytes and metamyelocytes) > 1% indicates that a LEFT SHIFT is Present. Ketones Test strip Ql (U)Ord ered By: Erick Ackerman on 01-03-2025 Ketones Ql (U) Negative Negative [facility] Laboratory - Chemistry and C hemistry - challengeOrdered By: Erick Ackerman on 01-03-2025 AST [Catalytic activity/Vol] 17 U/L <32 [facility] Lipaseon 01-03-2025 Lipase [Catalytic activity/Vol] 46 U/L Normal 13-75 [facility] Comment on above: Result Comment: Maude peres note:LIPASE revised reference range effective 22.New Lipase methodology. Expected to produce lower valuesthan the previous assay method.NEW Reference Range: 13 - 75 U/L Performed By: #### L 100.0100, L500.4050, L700.6800, L501.2450 ####[facility] [address] [facility] [place], [address] Lipase measurementOrdered By : Erick Ackerman on 01-03-2025 Lipase [Catalytic activity/Vol] 46 U/L 13-75 [facility] Comment on above: Please note:LIPASE r evised reference range effective 22. New Lipase methodology. Expected to produce lower values than the previous assay method. NEW Reference Range: 13 - 75 U/L MCV (mean corpuscular volume ) determinationOrdered By: Erick Ackerman on 01-03-2025 MCV (RBC) [Entitic vol] 85.3 fL 81-99 [facility] Mean corpuscular hemoglobin (MCH) determinationOrdered By: Erick Ackerman on 01-03-2025 MCH (RBC) [Entitic mass] 29.3 pg 27.0-32.0 [facility] Mean corpuscular hemoglobin concentration (MCHC) determinationOrdered By: Erick Ackerman on 01-03-2025 MCHC (RBC) [Mass/Vol] 34.3 g/dL 32-36 [facility] Mean platelet volume determi nationOrdered By: Erick Ackerman on 01-03-2025 Platelet mean volume (Bld) [Entitic vol] 9.5 fL 6.2-12.0 [facility] Microscopic analysis of urin e for red blood cells (RBC)Ordered By: Erick Ackerman on 01-03-2025 Microscopic analysis of urine for red blood cells (RBC) 0-5 SEEN /hpf 0-5 [facility] Monocyte percentageOrdered B y: Erick Ackerman on 01-03-2025 Monocytes/100 WBC (Bld) 6.1 % 0-10 [facility] Mucus LM Ql (Urine sed)Order ed By: Erick Ackerman on 01-03-2025 Mucus Ql (Urine sed) 0 SEEN /hpf [facility] Neutrophil percentageOrdered By: Erick Ackerman on 01-03-2025 Neutrophils/100 WBC (Bld) 51.9 % 47-70 [facility] Nitrite Test strip Ql (U)Ord ered By: Erick Ackerman on 01-03-2025 Nitrite Ql (U) Negative Negative [facility] Nucleated red blood cell per centageOrdered By: Erick Ackerman on 01-03-2025 Nucleated RBC/100 WBC (Bld) [Ratio] 0 % 0-5 [facility] Platelet countOrdered By: Lucian Ackerman on 01-03-2025 Platelets (Bld) [#/Vol] 392 10*3/uL 150-450 [facility] Platelet estimateOrdered By: Erick Ackerman on 01-03-2025 Platelets LM Ql (Bld) A ADEQ [facility] Potassium measurement (mass/ volume)Ordered By: Erick Ackerman on 01-03-2025 Potassium (Unsp spec) [Mass/Vol] 3.6 mmol/L 3.3-5.1 [facility] ,Serum,hCG Quali.on 01-03-2025 HCG, SERUM QUAL Negative Normal [facility] Comment on above: Performed By: #### L 100.0100, L500.4050, L700.6800, L501.2450 ####[facility] [address] [place], [address] Protein Test strip Ql (U)Ord ered By: Erick Ackerman on 01-03-2025 Protein Ql (U) 30 mg/dl High Negative [facility] RBC Auto (Bld) [#/Vol]Ordere d By: Erick Ackerman on 01-03-2025 RBC (Bld) [#/Vol] 4.68 10*6/uL 4.2-5.4 [facility] Serum beta-hCG test, qualita tiveOrdered By: Erick Ackerman on 01-03-2025 Beta HCG ( test) Ql Negative [facility] Serum creatinine measurement (mass/volume)Ordered By: Erick Ackerman on 01-03-2025 Creatinine [Mass/Vol] 0.61 mg/dL Low 0.70-1.20 [facility] Serum globulin measurementOr dered By: Erick Ackerman on 01-03-2025 Globulin (S) [Mass/Vol] 2.6 g/dL 2.2-4.2 [facility] Serum glucose measurement (m ass/volume)Ordered By: Erick Ackerman on 01-03-2025 Glucose [Mass/Vol] 103 mg/dL High 70-99 [facility] Serum or plasma alanine andrade otransferase (ALT) measurementOrdered By: Erick Ackerman on 01-03-2025 ALT [Catalytic activity/Vol] 14 U/L <35 [facility] Serum or plasma albumin caitie urement (mass/volume)Ordered By: Erick Ackerman on 01-03-2025 Albumin [Mass/Vol] 4.2 g/dL 3.5-5.0 [facility] Serum or plasma albumin/glob ulin mass ratioOrdered By: Erick Ackerman on 01-03-2025 Albumin/Globulin [Mass ratio] 1.6 {ratio} 0.9-2.4 [facility] Serum or plasma alkaline musa sphatase measurementOrdered By: Erick Ackerman on 01-03-2025 ALP [Catalytic activity/Vol] 79 U/L 35-104 [facility] Serum or plasma calcium caitie urement (mass/volume)Ordered By: Erick Ackerman on 01-03-2025 Calcium [Mass/Vol] 9.2 mg/dL 7.6-11.0 [facility] Serum or plasma urea nitroge n measurement (mass/volume)Ordered By: Erick Ackerman on 01-03-2025 Urea nitrogen [Mass/Vol] 16 mg/dL 4-19 [facility] Sodium levelOrdered By: Erick Ackerman on 01-03-2025 Sodium [Moles/Vol] 138 mmol/L 133-145 [facility] Squamous epithelial cells de tection in urine sediment by light microscopyOrdered By: Erick Ackerman on 01-03-2025 Epithelial cells.squamous LM Ql (Urine sed) 0-5 SEEN /hpf 5-10 [facility] Total proteinOrdered By: Marcelo Ackerman on 01-03-2025 Protein [Mass/Vol] 6.8 g/dL 5.9-8.4 [facility] Urinalysis, Completeon 01-03 BACTERIA 2+ /hpf Normal None Seen [facility] Comment on above: Order Comment: CLARISA CTOR TO SPECIFY Performed By: #### L 400.0001 ####[facility] [address] [place], [place], [id number] EPI,SQUAMOUS 0-5 SEEN Normal 5-10 [facility] Comment on above: Order Comment: CLARISA CTOR TO SPECIFY Performed By: #### L 400.0001 ####[facility] [address] [place], [address] RBC 0-5 SEEN Normal 0-5 [facility] Comment on above: Order Comment: CLARISA CTOR TO SPECIFY Performed By: #### L 400.0001 ####[facility] [address] [facility] [address] WBC 5-10 SEEN Normal 0-5 [facility] Comment on above: Order Comment: CLARISA CTOR TO SPECIFY Performed By: #### L 400.0001 ####[facility] [address] [place], [place], [id number] Mucus Ql (Urine sed) 0 SEEN Normal [facility] Comment on above: Order Comment: COLLE CTOR TO SPECIFY Performed By: #### L 400.0001 ####[facility] [address] [place], [place], [id number] Urine clarityOrdered By: Marcelo Ackerman on 01-03-2025 Clarity (U) Cloudy Clear [facility] Urine color determinationOrd ered By: Erick Ackerman on 01-03-2025 Color (U) Yellow Yellow [facility] Urine glucose detectionOrder ed By: Erick Ackerman on 01-03-2025 Glucose Ql (U) Normal mg/dl Normal [facility] Urine leukocyte esterase det ection by dipstickOrdered By: Erick Ackerman on 01-03-2025 Leukocyte esterase Test strip Ql (U) 100 /ul High Negative [facility] Urine pHOrdered By: Erick Ocampo ghramiro on 01-03-2025 pH (U) 6.5 [pH] 5.0 - 8.0 [facility] Urine sediment bacteria coun t by microscopy (number/high power field)Ordered By: Erick Ackerman on 01-03-2025 Bacteria LM.HPF (Urine sed) [#/Area] 2 /[HPF] None Seen [facility] Urine specific gravity measu rementOrdered By: Erick Ackerman on 01-03-2025 Specific gravity (U) [Rel density] 1.015 1.002-1.030 [facility] Urine urobilinogen measureme ntOrdered By: Erick Ackerman on 01-03-2025 Urobilinogen Ql (U) Normal mg/dl Normal [facility] White blood cell (WBC) count Ordered By: Erick Ackerman on 01-03-2025 WBC (Bld) [#/Vol] 12.5 10*3/uL High 4.4-11.0 [facility] White blood cell countOrdere d By: Erick Ackerman on 01-03-2025 White blood cell count 5-10 SEEN /hpf 0-5 [facility] Calprotectin, Stoolon [address] 29 ug/g Normal 0-120 [facility] Comment on above: Result Comment: Conc entration Interpretation Follow-Up< 5 - 50 ug/g Normal None>50 -120 ug/g Borderline Re-evaluate in 4-6 weeks >120 ug/g Abnormal Repeat as clinically indicatedPerformed at: - [facility] [address] [id number] Director: Zaire Luna MD, Phone: [phone] Performed By: #### L 7000.0700 ####[facility] [address] [place], [address] Calprotectin stoolOrdered By : Niyah Arevalo on 12-14-2024 Calprotectin stool 29 ug/g 0-120 [facility] Comment on above: Concentration Interp retation Follow-Up< 5 - 50 ug/g Normal None>50 -120 ug/g Borderline Re-evaluate in 4-6 weeks >120 ug/g Abnormal Repeat as clinically indicatedPerformed at: BN - [facility] [address] [address] [id number] Director: Zaire Luna MD, Phone: [phone] Stool Calprotectin 29 ug/g 0-120 [facility] Comment on above: Concentration Interp retation Follow-Up< 5 - 50 ug/g Normal None>50 -120 ug/g Borderline Re-evaluate in 4-6 weeks >120 ug/g Abnormal Repeat as clinically indicatedPerformed at: BN - [facility] [address] [id number] Director: Zaire Luna MD, Phone: [phone] Enterography Abd/Arian 12-11 Enterography Abd/Pel Normal [facility] Magnetic resonance imaging r eportOrdered By: Sadi Lyon on 12-11-2024 Study report [facility] Imaging Services [address] [place] [address] Enterography Abd/Pel MR#: [id number] Acct: [id number] Name: ARMIN VIVAS Rep #: [id number] : 1985 F 39 From: Meggan Lyon MD PCP: Dr. Azael Maria Victoria, MD Status: REG CLI Study:Enterography Abd/Pel Date of Exam: 12/11/24 Exam# [id number] Ordering Dr: Niyah Arevalo FEEDER ASSOCIATEJoaquin PROCEDURE: ENTEROGRAPHY [facility] 12/11/2024 REASON FOR EXAM: K50.90 - CROHN'S DISEASE, UNSPECIFIED, WITHOUT COMPLICATIONS TECHNIQUE: Multisequence multiplanar MRI of the abdomen and pelvis was performed with and without IV contrast. IV contrast: 15 mL Clariscan PO contrast: Administered, type and dose information not provided COMPARISON: 10/09/2024 FINDINGS: Note that the exam was optimized for evaluation of the bowel rather than the remaining abdominopelvic viscera. Accordingly some upper abdominal viscera are excluded from the [id number]-ul-jswb. Note also that dynamic T2 and diffusion sequences were note that not performed. Note that the perianal region is partially imaged. Liver: Unremarkable. Spleen: Unremarkable. Gallbladder: Cholecystectomy. Pancreas: Unremarkable. Adrenals: Unremarkable. Kidneys: Tiny bilateral cysts. Bowel: Questionable minimal hyperemia without wall thickening or mural stratification along a short roughly 2.5 cm segment of the terminal ileum extending to the ileocecal valve. No other convincing areas of abnormal small bowel wall thickening, enhancement, or mesenteric edema. No findings to suggest penetrating disease such as fistulization or abscess. Unremarkable terminal ileum. Circumferential T2 dark wall thickening versus underdistention involving the rectosigmoid extending to the anorectal junction. Upstream colon within normal limits. Normal appendix. Lymph nodes: Subcentimeter mesenteric nodes. Vasculature: Unremarkable. Peritoneum: Trace pelvic free fluid. Bladder: Unremarkable. Reproductive Organs: 2.0 cm RIGHT ovarian likely hemorrhagic cyst. Peripherallyenhancing 2.6 cm RIGHT ovarian cyst compatible with a corpus luteal cyst. 3.4 cm simple appearing LEFT ovarian likely physiologic cyst. Body Wall: Suspect operative changes near the umbilicus. Bones: Unremarkable. MRI/Enterography Abd/Pel IMPRESSION: 1. Questionable minimal hyperemia without significant wall thickening along a short 2.5 cm segment of the terminal ileum extending to the ileocecal valve. This could reflect minimal active inflammation. No convincing evidence of a fibrotic component, stenosis, fistulization, or abscess. 2. Wall thickening versus underdistention involving the rectosigmoid with associated hyperemia. This could reflect an additional site of disease involvement and would be optimally evaluated by sigmoidoscopy. Clinical follow-up recommended to exclude underlying lesion. 3. Trace pelvic free fluid, potentially physiologic in this demographic. Bilateral adnexal cystic foci compatible with corpus luteal, hemorrhagic, and physiologic cysts, though suboptimally characterized byMR enterography. 4. Additional description as above. Reading Location: [id number] CC: SANTA Arevalo; Dr. Azael Irene MD ~ Medical Case Manager: Signed [facility] Gastroenterology Visit Repor ton 11-09-2024 Gastroenterology Visit Report Normal [facility] Abdomen/Pelvis W IV Cont ONL Yon 10-09-2024 Abdomen/Pelvis W IV Cont ONLY Normal [facility] Absolute neutrophil countOrd ered By: ED PROVIDER on 10-09-2024 Neutrophils (Bld) [#/Vol] 5.3 10*3/uL 2.0-7.7 [facility] Albumin to globulin ratioOrd ered By: ED PROVIDER on 10-09-2024 Albumin/Globulin [Mass ratio] 1.1 {ratio} 0.9-2.4 [facility] Basophil percentageOrdered B y: ED PROVIDER on 10-09-2024 Basophils/100 WBC (Bld) 0.6 % 0-1 [facility] Beta HCG ( test) Ql Ordered By: ED PROVIDER on 10-09-2024 Serum Test, Qualitative Negative [facility] Bilirubin Test strip Ql (U)O rdered By: Vanita Pedroza on 10-09-2024 Bilirubin Ql (U) Negative Negative [facility] Bilirubin, totalOrdered By: ED PROVIDER on 10-09-2024 Bilirubin [Mass/Vol] 0.30 mg/dL 0.20-1.00 [facility] Comment on above: For patients on eltr ombopag therapy, use of Dimension [place] TBIL is not recommended. Blood urea nitrogen (BUN)/cr eatinine ratioOrdered By: ED PROVIDER on 10-09-2024 Urea nitrogen/Creatinine [Mass ratio] 28.6 mg/mg High 10-20 [facility] CBC W/Diff, Automatedon Absolute Lymph 3.58 X10 3/uL Normal 0.83-4.51 [facility] Comment on above: Performed By: #### L 100.0100, L700.6800, L500.4050 ####[facility] [address] [place], [address] Absolute Neut 5.3 X10 3/uL Normal 2.0-7.7 [facility] Comment on above: Performed By: #### L 100.0100, L700.6800, L500.4050 ####[facility] [address] [place], [address] Basophils/100 WBC (Bld) 0.6 % Normal 0-1 [facility] Comment on above: Performed By: #### L 100.0100, L700.6800, L500.4050 ####[facility] [address] [place], [address] Eosinophils/100 WBC (Bld) 1.9 % Normal 0-5 [facility] Comment on above: Performed By: #### L 100.0100, L700.6800, L500.4050 ####[facility] [address] [place], [address] Erythrocyte distribution width (RBC) [Ratio] 13.3 % Normal 11.6-14.6 [facility] Comment on above: Performed By: #### L 100.0100, L700.6800, L500.4050 ####[facility] [address] [place], [address] Hematocrit (Bld) [Volume fraction] 42.5 % Normal 37-47 [facility] Comment on above: Performed By: #### L 100.0100, L700.6800, L500.4050 ####[facility] [address] [place], [address] Hemoglobin (Bld) [Mass/Vol] 14.0 g/dL Normal 12.0-15.0 [facility] Comment on above: Performed By: #### L 100.0100, L700.6800, L500.4050 ####[facility] [address] [place], [address] IG% 0.300 Normal 0.0-0.9 [facility] Comment on above: Result Comment: IG% - Immature Granulocytes (promyelocytes, myelocytes andmetamyelocytes) > 1% indicates that a LEFT SHIFT is Present. Performed By: #### L 100.0100, L700.6800, L500.4050 ####[facility] [address] [place], [address] Lymphocytes/100 WBC (Bld) 36.9 % Normal 19-41 [facility] Comment on above: Performed By: #### L 100.0100, L700.6800, L500.4050 ####[facility] [address] [place], [address] MCH (RBC) [Entitic mass] 28.3 pg Normal 27.0-32.0 [facility] Comment on above: Performed By: #### L 100.0100, L700.6800, L500.4050 ####[facility] [address] [place], [address] MCHC (RBC) [Mass/Vol] 32.9 g/dL Normal 32-36 [facility] Comment on above: Performed By: #### L 100.0100, L700.6800, L500.4050 ####[facility] [address] [place], [address] MCV (RBC) [Entitic vol] 86.0 fL Normal 81-99 [facility] Comment on above: Performed By: #### L 100.0100, L700.6800, L500.4050 ####[facility] [address] [place], [address] Monocytes/100 WBC (Bld) 5.5 % Normal 0-10 [facility] Comment on above: Performed By: #### L 100.0100, L700.6800, L500.4050 ####[facility] [address] [place], [address] Neutrophils/100 WBC (Bld) 54.8 % Normal 47-70 [facility] Comment on above: Performed By: #### L 100.0100, L700.6800, L500.4050 ####[facility] [address] [place], [address] Nucleated RBC (Bld) [#/Vol] 0 10*3/uL Normal 0-5 [facility] Comment on above: Performed By: #### L 100.0100, L700.6800, L500.4050 ####[facility] [address] [place], [address] Platelet mean volume (Bld) [Entitic vol] 9.3 fL Normal 6.2-12.0 [facility] Comment on above: Performed By: #### L 100.0100, L700.6800, L500.4050 ####[facility] [address] [place], [address] Platelets (Bld) [#/Vol] 424 10*3/uL Normal 150-450 [facility] Comment on above: Performed By: #### L 100.0100, L700.6800, L500.4050 ####[facility] [address] [place], [address] RBC (Bld) [#/Vol] 4.94 10*6/uL Normal 4.2-5.4 [facility] Comment on above: Performed By: #### L 100.0100, L700.6800, L500.4050 ####[facility] [address] [place], [address] RDW SD 41.8 fl Normal 35.1-43.9 [facility] Comment on above: Performed By: #### L 100.0100, L700.6800, L500.4050 ####[facility] [address] [place], [address] WBC (Bld) [#/Vol] 9.7 10*3/uL Normal 4.4-11.0 [facility] Comment on above: Performed By: #### L 100.0100, L700.6800, L500.4050 ####[facility] [address] [place], [address] Carbon dioxide measurementOr dered By: ED PROVIDER on 10-09-2024 CO2 [Moles/Vol] 21.0 mmol/L 21.0-32.0 [facility] Chloride measurementOrdered By: ED PROVIDER on 10-09-2024 Chloride [Moles/Vol] 107 mmol/L 98-107 [facility] Comprehensive Metabolic Prof ilon 10-09-2024 Albumin [Mass/Vol] 4.1 g/dL Normal 3.2-5.0 [facility] Comment on above: Performed By: #### L 100.0100, L700.6800, L500.4050 ####[facility] [address] [place], [address] Albumin/Globulin [Mass ratio] 1.1 {ratio} Normal 0.9-2.4 [facility] Comment on above: Performed By: #### L 100.0100, L700.6800, L500.4050 ####[facility] [address] [place], [address] ALK P 80 U/L Normal 45-117 [facility] Comment on above: Performed By: #### L 100.0100, L700.6800, L500.4050 ####[facility] [address] [place], [address] ALT [Catalytic activity/Vol] 19 U/L Normal 13-56 [facility] Comment on above: Performed By: #### L 100.0100, L700.6800, L500.4050 ####[facility] [address] [place], [address] AST [Catalytic activity/Vol] 12 U/L Low 15-37 [facility] Comment on above: Performed By: #### L 100.0100, L700.6800, L500.4050 ####[facility] [address] [place], [address] Bilirubin [Mass/Vol] 0.30 mg/dL Normal 0.20-1.00 [facility] Comment on above: Result Comment: For patients on eltrombopag therapy, use of Dimension [place] TBIL is not recommended. Performed By: #### L 100.0100, L700.6800, L500.4050 ####[facility] [address] [place], [address] BUN/CRE 28.6 RATIO High 10-20 [facility] Comment on above: Performed By: #### L 100.0100, L700.6800, L500.4050 ####[facility] [address] [place], [address] CA,Total 9.4 mg/dL Normal 8.5-10.1 [facility] Comment on above: Performed By: #### L 100.0100, L700.6800, L500.4050 ####[facility] [address] [place], [address] Chloride [Moles/Vol] 107 mmol/L Normal 98-107 [facility] Comment on above: Performed By: #### L 100.0100, L700.6800, L500.4050 ####[facility] [address] [place], [address] CO2 [Moles/Vol] 21.0 mmol/L Normal 21.0-32.0 [facility] Comment on above: Performed By: #### L 100.0100, L700.6800, L500.4050 ####[facility] [address] [place], [address] Creatinine [Mass/Vol] 0.66 mg/dL Normal 0.55-1.02 [facility] Comment on above: Result Comment: The validity of the calculated GFR GFRAA in patients over70 years has not been determined. Clinical correlation isessential. Performed By: #### L 100.0100, L700.6800, L500.4050 ####[facility] [address] [place], [address] ECRCL 115.39 ml/min Normal [facility] Comment on above: Performed By: #### L 100.0100, L700.6800, L500.4050 ####[facility] [address] [place], [address] EST GFR - AA 129 mL/min Normal >60 [facility] Comment on above: Result Comment: Afri can [place] GFR Calc Performed By: #### L 100.0100, L700.6800, L500.4050 ####[facility] [address] [place], [address] GAP 8 Normal 5-15 [facility] Comment on above: Performed By: #### L 100.0100, L700.6800, L500.4050 ####[facility] [address] [place], [address] GFR/1.73 sq M.predicted among non-blacks MDRD (S/P/Bld) [Vol rate/Area] 106 mL/min/{1.73_m2} Normal >60 [facility] Comment on above: Result Comment: Non- GFR Calc Performed By: #### L 100.0100, L700.6800, L500.4050 ####[facility] [address] [place], [address] Globulin (S) [Mass/Vol] 3.6 g/dL Normal 2.2-4.2 [facility] Comment on above: Performed By: #### L 100.0100, L700.6800, L500.4050 ####[facility] [address] [place], [address] Glucose [Mass/Vol] 91 mg/dL Normal 74-106 [facility] Comment on above: Performed By: #### L 100.0100, L700.6800, L500.4050 ####[facility] [address] [place], [address] Potassium [Moles/Vol] 3.8 mmol/L Normal 3.5-5.1 [facility] Comment on above: Performed By: #### L 100.0100, L700.6800, L500.4050 ####[facility] [address] [place], [address] Sodium [Moles/Vol] 136 mmol/L Normal 136-145 [facility] Comment on above: Performed By: #### L 100.0100, L700.6800, L500.4050 ####[facility] [address] [place], [address] T PROT 7.7 g/dL Normal 6.4-8.2 [facility] Comment on above: Performed By: #### L 100.0100, L700.6800, L500.4050 ####[facility] [address] [place], [address] Urea nitrogen [Mass/Vol] 19 mg/dL High 7-18 [facility] Comment on above: Performed By: #### L 100.0100, L700.6800, L500.4050 ####[facility] [address] [place], [address] Emergency Department Summary on 10-09-2024 Emergency Department Summary Normal [facility] Eosinophil percentageOrdered By: ED PROVIDER on 10-09-2024 Eosinophils/100 WBC (Bld) 1.9 % 0-5 [facility] Epithelial cells.squamous LM Ql (Urine sed)Ordered By: Vanita Pedroza on 10-09-2024 Epithelial cells.squamous LM.HPF (Urine sed) [#/Area] 0 /[HPF] 5-10 [facility] Erythrocyte distribution wid th (RBC) [Ratio]Ordered By: ED PROVIDER on 10-09-2024 Erythrocyte distribution width (RBC) [Entitic vol] 41.8 fL 35.1-43.9 [facility] Erythrocyte distribution wid th ratioOrdered By: ED PROVIDER on 10-09-2024 Erythrocyte distribution width (RBC) [Ratio] 13.3 % 11.6-14.6 [facility] Estimated glomerular filtrat ion rate (GFR) AmericanOrdered By: ED PROVIDER on 10-09-2024 Estimated GFR (MDRD) Amer 129 mL/min >60 [facility] Comment on above: GFR Calc Estimation of creatinine jodi aranceOrdered By: ED PROVIDER on 10-09-2024 Estimated Creatinine Clearance Calc 115.39 ml/min [facility] Glomerular filtration rate ( GFR) estimationOrdered By: ED PROVIDER on 10-09-2024 Estimated GFR (MDRD) Non-Af Amer 106 mL/min >60 [facility] Comment on above: Non- GFR Calc Glucose Ql (U)Ordered By: Finn Pedroza on 10-09-2024 Urine Glucose (UA) Normal mg/dl Normal [facility] Glucose measurementOrdered B y: ED PROVIDER on 10-09-2024 Glucose [Mass/Vol] 91 mg/dL 74-106 [facility] Hematocrit Auto (Bld) [Volum e fraction]Ordered By: ED PROVIDER on 10-09-2024 Hematocrit (Bld) [Volume fraction] 42.5 % 37-47 [facility] Hemoglobin measurementOrdere d By: ED PROVIDER on 10-09-2024 Hemoglobin (Bld) [Mass/Vol] 14.0 g/dL 12.0-15.0 [facility] Immature granulocytes/100 WB C Auto (Bld)Ordered By: ED PROVIDER on 10-09-2024 Immature granulocytes/100 WBC (Bld) 0.300 % 0.0-0.9 [facility] Comment on above: IG% - Immature Granu locytes (promyelocytes, myelocytes and metamyelocytes) > 1% indicates that a LEFT SHIFT is Present. Influenza virus A and B and SARS-CoV-2 (COVID-19) and Respiratory syncytial virus RNAOrdered By: Vanita Pedroza on 10-09-2024 SARS-CoV-2 (COVID-19) RNA DEISY+probe Ql (Unsp spec) [facility] Ketones Test strip Ql (U)Ord ered By: Vanita Pedroza on 10-09-2024 Ketones Ql (U) Negative Negative [facility] Laboratory - Chemistry and C hemistry - challengeOrdered By: ED PROVIDER on 10-09-2024 AST [Catalytic activity/Vol] 12 U/L Low 15-37 [facility] Lipaseon 10-09-2024 Lipase [Catalytic activity/Vol] 41 U/L Low 73-393 [facility] Comment on above: Performed By: #### L 501.2450 ####[facility] [address] [place], [address] Lipase measurementOrdered By : Vanita Pedroza on 10-09-2024 Lipase [Catalytic activity/Vol] 41 U/L Low 73-393 [facility] Lymphocytes Auto (Unsp spec) [#/Vol]Ordered By: ED PROVIDER on 10-09-2024 Lymphocytes (Bld) [#/Vol] 3.58 10*3/uL 0.83-4.51 [facility] Lymphocytes/100 WBC Auto (Un sp spec)Ordered By: ED PROVIDER on 10-09-2024 Lymphocytes/100 WBC (Bld) 36.9 % 19-41 [facility] M100.678on 10-09-2024 M100.678 Pending SARS-CoV-2 (COVID 19) Negative INFLUENZA A Negative INFLUENZA B Negative RSV PCR Negative Normal [facility] Comment on above: Performed By: #### M [id number] ####[facility] [address] [place], [place], [address] MCV (mean corpuscular volume ) determinationOrdered By: ED PROVIDER on 10-09-2024 MCV (RBC) [Entitic vol] 86.0 fL 81-99 [facility] Mean corpuscular hemoglobin (MCH) determinationOrdered By: ED PROVIDER on 10-09-2024 MCH (RBC) [Entitic mass] 28.3 pg 27.0-32.0 [facility] Mean corpuscular hemoglobin concentration (MCHC) determinationOrdered By: ED PROVIDER on 10-09-2024 MCHC (RBC) [Mass/Vol] 32.9 g/dL 32-36 [facility] Mean platelet volume determi nationOrdered By: ED PROVIDER on 10-09-2024 Platelet mean volume (Bld) [Entitic vol] 9.3 fL 6.2-12.0 [facility] Microscopic analysis of urin e for red blood cells (RBC)Ordered By: Vanita Pedroza on 10-09-2024 Urine RBC 0 SEEN /hpf 0-5 [facility] Monocyte percentageOrdered B y: ED PROVIDER on 10-09-2024 Monocytes/100 WBC (Bld) 5.5 % 0-10 [facility] Mucus LM Ql (Urine sed)Order ed By: Vanita Pedroza on 10-09-2024 Mucus Ql (Urine sed) 1+ /hpf [facility] Neutrophil percentageOrdered By: ED PROVIDER on 10-09-2024 Neutrophils/100 WBC (Bld) 54.8 % 47-70 [facility] Nitrite Test strip Ql (U)Ord ered By: Vanita Pedroza on 10-09-2024 Nitrite Ql (U) Negative Negative [facility] Nucleated red blood cell per centageOrdered By: ED PROVIDER on 10-09-2024 Nucleated RBC/100 WBC (Bld) [Ratio] 0 % 0-5 [facility] Platelet countOrdered By: ED PROVIDER on 10-09-2024 Platelets (Bld) [#/Vol] 424 10*3/uL 150-450 [facility] Potassium measurementOrdered By: ED PROVIDER on 10-09-2024 Potassium [Moles/Vol] 3.8 mmol/L 3.5-5.1 [facility] ,Serum,hCG Quali.on 10-09-2024 HCG, SERUM QUAL Negative Normal [facility] Comment on above: Performed By: #### L 100.0100, L700.6800, L500.4050 ####[facility] [address] [place], [address] Protein Test strip Ql (U)Ord ered By: Vanita Pedroza on 10-09-2024 Protein Ql (U) 30 mg/dl High Negative [facility] RBC Auto (Bld) [#/Vol]Ordere d By: ED PROVIDER on 10-09-2024 RBC (Bld) [#/Vol] 4.94 10*6/uL 4.2-5.4 [facility] Serum anion gap measurementO rdered By: ED PROVIDER on 10-09-2024 Anion gap [Moles/Vol] 8 mmol/L 5-15 [facility] Serum globulin measurementOr dered By: ED PROVIDER on 10-09-2024 Globulin (S) [Mass/Vol] 3.6 g/dL 2.2-4.2 [facility] Serum or plasma alanine andrade otransferase (ALT) measurementOrdered By: ED PROVIDER on 10-09-2024 ALT [Catalytic activity/Vol] 19 U/L 13-56 [facility] Serum or plasma albumin caitie urement (mass/volume)Ordered By: ED PROVIDER on 10-09-2024 Albumin [Mass/Vol] 4.1 g/dL 3.2-5.0 [facility] Serum or plasma alkaline msua sphatase measurementOrdered By: ED PROVIDER on 10-09-2024 ALP [Catalytic activity/Vol] 80 U/L 45-117 [facility] Serum or plasma calcium caitie urement (mass/volume)Ordered By: ED PROVIDER on 10-09-2024 Calcium [Mass/Vol] 9.4 mg/dL 8.5-10.1 [facility] Serum or plasma creatinine m easurement (mass/volume)Ordered By: ED PROVIDER on 10-09-2024 Creatinine [Mass/Vol] 0.66 mg/dL 0.55-1.02 [facility] Comment on above: The validity of the calculated GFR & GFRAA in patients over 70 years has not been determined. Clinical correlation is essential. Serum or plasma urea nitroge n measurement (mass/volume)Ordered By: ED PROVIDER on 10-09-2024 Urea nitrogen [Mass/Vol] 19 mg/dL High 7-18 [facility] Sodium levelOrdered By: ED P ROVIDER on 10-09-2024 Sodium [Moles/Vol] 136 mmol/L 136-145 [facility] Total proteinOrdered By: ED PROVIDER on 10-09-2024 Protein [Mass/Vol] 7.7 g/dL 6.4-8.2 [facility] Urinalysis, Completeon 10-09 EPI,SQUAMOUS 0-5 SEEN Normal 5-10 [facility] Comment on above: Order Comment: CLEAN CATCH Performed By: #### L 400.0001 ####[facility] [address] [place] [address] Mucus Ql (Urine sed) 1+ /hpf Normal [facility] Comment on above: Order Comment: CLEAN CATCH Performed By: #### L 400.0001 ####[facility] [address] [facility] [address] RBC 0 SEEN Normal 0-5 [facility] Comment on above: Order Comment: CLEAN CATCH Performed By: #### L 400.0001 ####[facility] [address] [facility] [address] WBC 0-5 SEEN Normal 0-5 [facility] Comment on above: Order Comment: CLEAN CATCH Performed By: #### L 400.0001 ####[facility] [address] [facility] [address] BACTERIA 0 SEEN Normal None Seen [facility] Comment on above: Order Comment: CLEAN CATCH Performed By: #### L 400.0001 ####[facility] [address] [facility] [address] Urine blood detectionOrdered By: Vanita Pedroza on 10-09-2024 Urine Occult Blood 50 /ul High Negative [facility] Urine clarityOrdered By: Adeline Pedroza on 10-09-2024 Clarity (U) Clear Clear [facility] Urine color determinationOrd ered By: Vanita Pedroza on 10-09-2024 Color (U) Yellow Yellow [facility] Urine leukocyte esterase det ection by dipstickOrdered By: Vanita Pedroza on 10-09-2024 Leukocyte esterase Test strip Ql (U) 25 /ul High Negative [facility] Urine pHOrdered By: Vanita sparks on 10-09-2024 pH (U) 6.0 [pH] 5.0 - 8.0 [facility] Urine sediment bacteria coun t by microscopy (number/high power field)Ordered By: Vanita Pedroza on 10-09-2024 Bacteria LM.HPF (Urine sed) [#/Area] 0 /[HPF] None Seen [facility] Urine specific gravity measu rementOrdered By: Vanita Pedroza on 10-09-2024 Specific gravity (U) [Rel density] 1.015 1.002-1.030 [facility] Urobilinogen Ql (U)Ordered B y: Vanita Pedroza on 10-09-2024 Urine Urobilinogen Normal mg/dl Normal [facility] White blood cell (WBC) count Ordered By: ED PROVIDER on 10-09-2024 WBC (Bld) [#/Vol] 9.7 10*3/uL 4.4-11.0 [facility] White blood cell countOrdere d By: Vanita Pedroza on 10-09-2024 Urine WBC 0-5 SEEN /hpf 0-5 [facility] 12 Lead EKGon 09-22-2024 12 Lead EKG Normal [facility] Cholangiogram/ O R,Initialon 09-22-2024 Cholangiogram/ O R,Initial Normal [facility] Discharge Instructionon 09-03 Discharge Instruction Normal [facility] MR/POSTOP.ANEon 09-22-2024 MR/POSTOP.ANE Normal [facility] MR/FDCRUANZ2qg 09-22-2024 MR/POSTOPAN2 Normal [facility] Operative Reporton Operative Report Normal [facility] ,Urineon 09-22-2024 Beta HCG ( test) Ql (U) Negative Normal [facility] Comment on above: Result Comment: Very dilute urine specimens, as indicated by a low specificgravity, may not contain correspondence representative levels of hCG.If is still suspected, a first morning urinespecimen should be collected 48 hours later and tested. Performed By: #### L 400.7600 ####[facility] [address] [place], [place], [id number] Surgery Specimen Level IIIon 09-22-2024 Surgery Specimen Level III Normal [facility] Comment on above: Performed By: #### P SUIII ####[facility] [address] [place], [place], [id number] Urine testOrdered By: Nestor Asif on 09-22-2024 HCG ( test) Ql (U) Negative [facility] Comment on above: Very dilute urine sp ecimens, as indicated by a low specificgravity, may not contain correspondence representative levels of hCG. If is still suspected, a first morning urinespecimen should be collected 48 hours later and tested. Surgery Visit Reporton 09-10 Surgery Visit Report Normal [facility] Surgery Visit Reporton 08-28 Surgery Visit Report Normal [facility] Absolute neutrophil countOrd ered By: Gabe Harris on 08-27-2024 Neutrophils (Bld) [#/Vol] 5.7 10*3/uL 2.0-7.7 [facility] Albumin to globulin ratioOrd ered By: Gabe Harris on 08-27-2024 Albumin/Globulin [Mass ratio] 1.2 {ratio} 0.9-2.4 [facility] Basophil percentageOrdered B y: Gabe Harris on 08-27-2024 Basophils/100 WBC (Bld) 0.9 % 0-1 [facility] Bilirubin Test strip Ql (U)O rdered By: Gabe Harris on 08-27-2024 Bilirubin Ql (U) Negative Negative [facility] Bilirubin, totalOrdered By: Gabe Harris on 08-27-2024 Bilirubin [Mass/Vol] 0.40 mg/dL 0.20-1.00 [facility] Comment on above: For patients on eltr ombopag therapy, use of Dimension [place] TBIL is not recommended. Blood urea nitrogen (BUN)/cr eatinine ratioOrdered By: Gabe Harris on 08-27-2024 Urea nitrogen/Creatinine [Mass ratio] 15.7 mg/mg 10- [facility] CBC W/Diff, Automatedon 08-03 Absolute Lymph 4.55 X10 3/uL High 0.83-4.51 [facility] Comment on above: Performed By: #### L 100.0100, L500.4050, L501.2450 ####[facility] [address] [place], [address] Absolute Neut 5.7 X10 3/uL Normal 2.0-7.7 [facility] Comment on above: Performed By: #### L 100.0100, L500.4050, L501.2450 ####[facility] [address] [place], [address] Basophils/100 WBC (Bld) 0.9 % Normal 0-1 [facility] Comment on above: Performed By: #### L 100.0100, L500.4050, L501.2450 ####[facility] [address] [place], [address] Eosinophils/100 WBC (Bld) 2.1 % Normal 0-5 [facility] Comment on above: Performed By: #### L 100.0100, L500.4050, L501.2450 ####[facility] [address] [place], [address] Erythrocyte distribution width (RBC) [Ratio] 13.8 % Normal 11.6-14.6 [facility] Comment on above: Performed By: #### L 100.0100, L500.4050, L501.2450 ####[facility] [address] [place], [address] Hematocrit (Bld) [Volume fraction] 43.2 % Normal 37-47 [facility] Comment on above: Performed By: #### L 100.0100, L500.4050, L501.2450 ####[facility] [address] [place], [address] Hemoglobin (Bld) [Mass/Vol] 14.3 g/dL Normal 12.0-15.0 [facility] Comment on above: Performed By: #### L 100.0100, L500.4050, L501.2450 ####[facility] [address] [place], [address] IG% 0.500 Normal 0.0-0.9 [facility] Comment on above: Result Comment: IG% - Immature Granulocytes (promyelocytes, myelocytes andmetamyelocytes) > 1% indicates that a LEFT SHIFT is Present. Performed By: #### L 100.0100, L500.4050, L501.2450 ####[facility] [address] [place], [address] Lymphocytes/100 WBC (Bld) 40.1 % Normal 19-41 [facility] Comment on above: Performed By: #### L 100.0100, L500.4050, L501.2450 ####[facility] [address] [place], [address] MCH (RBC) [Entitic mass] 28.9 pg Normal 27.0-32.0 [facility] Comment on above: Performed By: #### L 100.0100, L500.4050, L501.2450 ####[facility] [address] [place], [address] MCHC (RBC) [Mass/Vol] 33.1 g/dL Normal 32-36 [facility] Comment on above: Performed By: #### L 100.0100, L500.4050, L501.2450 ####[facility] [address] [place], [address] MCV (RBC) [Entitic vol] 87.4 fL Normal 81-99 [facility] Comment on above: Performed By: #### L 100.0100, L500.4050, L501.2450 ####[facility] [address] [place], [address] Monocytes/100 WBC (Bld) 6.1 % Normal 0-10 [facility] Comment on above: Performed By: #### L 100.0100, L500.4050, L501.2450 ####[facility] [address] [place], [address] Neutrophils/100 WBC (Bld) 50.3 % Normal 47-70 [facility] Comment on above: Performed By: #### L 100.0100, L500.4050, L501.2450 ####[facility] [address] [place], [address] Nucleated RBC (Bld) [#/Vol] 0 10*3/uL Normal 0-5 [facility] Comment on above: Performed By: #### L 100.0100, L500.4050, L501.2450 ####[facility] [address] [place], [address] Platelet mean volume (Bld) [Entitic vol] 10.1 fL Normal 6.2-12.0 [facility] Comment on above: Performed By: #### L 100.0100, L500.4050, L501.2450 ####[facility] [address] [place], [address] Platelets (Bld) [#/Vol] 420 10*3/uL Normal 150-450 [facility] Comment on above: Performed By: #### L 100.0100, L500.4050, L501.2450 ####[facility] [address] [place], [address] RBC (Bld) [#/Vol] 4.94 10*6/uL Normal 4.2-5.4 [facility] Comment on above: Performed By: #### L 100.0100, L500.4050, L501.2450 ####[facility] [address] [place], [address] RDW SD 43.8 fl Normal 35.1-43.9 [facility] Comment on above: Performed By: #### L 100.0100, L500.4050, L501.2450 ####[facility] [address] [place], [address] WBC (Bld) [#/Vol] 11.4 10*3/uL High 4.4-11.0 [facility] Comment on above: Performed By: #### L 100.0100, L500.4050, L501.2450 ####[facility] [address] [place], [address] Carbon dioxide measurementOr dered By: Gabe Harris on 08-27-2024 CO2 [Moles/Vol] 25.0 mmol/L 21.0-32.0 [facility] Chloride measurementOrdered By: Gabe Harris on 08-27-2024 Chloride [Moles/Vol] 105 mmol/L 98-107 [facility] Comprehensive Metabolic Prof ilon 08-27-2024 Albumin [Mass/Vol] 4.2 g/dL Normal 3.2-5.0 [facility] Comment on above: Performed By: #### L 100.0100, L500.4050, L501.2450 ####[facility] [address] [place], [address] Albumin/Globulin [Mass ratio] 1.2 {ratio} Normal 0.9-2.4 [facility] Comment on above: Performed By: #### L 100.0100, L500.4050, L501.2450 ####[facility] [address] [place], [address] ALK P 69 U/L Normal 45-117 [facility] Comment on above: Performed By: #### L 100.0100, L500.4050, L501.2450 ####[facility] [address] [place], [address] ALT [Catalytic activity/Vol] 20 U/L Normal 13-56 [facility] Comment on above: Performed By: #### L 100.0100, L500.4050, L501.2450 ####[facility] [address] [place], [address] AST [Catalytic activity/Vol] 14 U/L Low 15-37 [facility] Comment on above: Performed By: #### L 100.0100, L500.4050, L501.2450 ####[facility] [address] [place], [address] Bilirubin [Mass/Vol] 0.40 mg/dL Normal 0.20-1.00 [facility] Comment on above: Result Comment: For patients on eltrombopag therapy, use of Dimension [place] TBIL is not recommended. Performed By: #### L 100.0100, L500.4050, L501.2450 ####[facility] [address] [place], [address] BUN/CRE 15.7 RATIO Normal 10-20 [facility] Comment on above: Performed By: #### L 100.0100, L500.4050, L501.2450 ####[facility] [address] [place], [address] CA,Total 9.6 mg/dL Normal 8.5-10.1 [facility] Comment on above: Performed By: #### L 100.0100, L500.4050, L501.2450 ####[facility] [address] [place], [address] Chloride [Moles/Vol] 105 mmol/L Normal 98-107 [facility] Comment on above: Performed By: #### L 100.0100, L500.4050, L501.2450 ####[facility] [address] [place], [address] CO2 [Moles/Vol] 25.0 mmol/L Normal 21.0-32.0 [facility] Comment on above: Performed By: #### L 100.0100, L500.4050, L501.2450 ####[facility] [address] [place], [address] Creatinine [Mass/Vol] 0.64 mg/dL Normal 0.55-1.02 [facility] Comment on above: Result Comment: The validity of the calculated GFR GFRAA in patients over70 years has not been determined. Clinical correlation isessential. Performed By: #### L 100.0100, L500.4050, L501.2450 ####[facility] [address] [place], [address] ECRCL 119.00 ml/min Normal [facility] Comment on above: Performed By: #### L 100.0100, L500.4050, L501.2450 ####[facility] [address] [place], [address] EST GFR - AA 136 mL/min Normal >60 [facility] Comment on above: Result Comment: Afri can [place] GFR Calc Performed By: #### L 100.0100, L500.4050, L501.2450 ####[facility] [address] [place], [address] GAP 7 Normal 5-15 [facility] Comment on above: Performed By: #### L 100.0100, L500.4050, L501.2450 ####[facility] [address] [place], [address] GFR/1.73 sq M.predicted among non-blacks MDRD (S/P/Bld) [Vol rate/Area] 112 mL/min/{1.73_m2} Normal >60 [facility] Comment on above: Result Comment: Non- GFR Calc Performed By: #### L 100.0100, L500.4050, L501.2450 ####[facility] [address] [place], [address] Globulin (S) [Mass/Vol] 3.6 g/dL Normal 2.2-4.2 [facility] Comment on above: Performed By: #### L 100.0100, L500.4050, L501.2450 ####[facility] [address] [place], [address] Glucose [Mass/Vol] 90 mg/dL Normal 74-106 [facility] Comment on above: Performed By: #### L 100.0100, L500.4050, L501.2450 ####[facility] [address] [place], [address] Potassium [Moles/Vol] 3.9 mmol/L Normal 3.5-5.1 [facility] Comment on above: Performed By: #### L 100.0100, L500.4050, L501.2450 ####[facility] [address] [place], [address] Sodium [Moles/Vol] 137 mmol/L Normal 136-145 [facility] Comment on above: Performed By: #### L 100.0100, L500.4050, L501.2450 ####[facility] [address] [place], [address] T PROT 7.8 g/dL Normal 6.4-8.2 [facility] Comment on above: Performed By: #### L 100.0100, L500.4050, L501.2450 ####[facility] [address] [place], [address] Urea nitrogen [Mass/Vol] 10 mg/dL Normal 7-18 [facility] Comment on above: Performed By: #### L 100.0100, L500.4050, L501.2450 ####[facility] [address] [place], [address] Emergency Department Summary on 08-27-2024 Emergency Department Summary Normal [facility] Eosinophil percentageOrdered By: Gabe Harris on 08-27-2024 Eosinophils/100 WBC (Bld) 2.1 % 0-5 [facility] Epithelial cells.squamous LM Ql (Urine sed)Ordered By: Gabe Harris on 08-27-2024 Epithelial cells.squamous LM.HPF (Urine sed) [#/Area] 5 /[HPF] 5-10 [facility] Erythrocyte distribution wid th (RBC) [Ratio]Ordered By: Gabe Harris on 08-27-2024 Erythrocyte distribution width (RBC) [Entitic vol] 43.8 fL 35.1-43.9 [facility] Erythrocyte distribution wid th ratioOrdered By: Gabe Harris on 08-27-2024 Erythrocyte distribution width (RBC) [Ratio] 13.8 % 11.6-14.6 [facility] Estimated glomerular filtrat ion rate (GFR) AmericanOrdered By: Gabe Harris on 08-27-2024 Estimated GFR (MDRD) Amer 136 mL/min >60 [facility] Comment on above: GFR Calc Estimation of creatinine jodi aranceOrdered By: Gabe Harris on 08-27-2024 Estimated Creatinine Clearance Calc 119.00 ml/min [facility] Gallbladderon 08-27-2024 Gallbladder Normal [facility] Glomerular filtration rate ( GFR) estimationOrdered By: Gabe Harris on 08-27-2024 Estimated GFR (MDRD) Non-Af Amer 112 mL/min >60 [facility] Comment on above: Non- GFR Calc Glucose Ql (U)Ordered By: Manuel Harris on 08-27-2024 Urine Glucose (UA) Normal mg/dl Normal [facility] Glucose measurementOrdered B y: Gabe Gallegosone on 08-27-2024 Glucose [Mass/Vol] 90 mg/dL 74-106 [facility] Hematocrit Auto (Bld) [Volum e fraction]Ordered By: Gabe Harris on 08-27-2024 Hematocrit (Bld) [Volume fraction] 43.2 % 37-47 [facility] Hemoglobin measurementOrdere d By: Gabe Harris on 08-27-2024 Hemoglobin (Bld) [Mass/Vol] 14.3 g/dL 12.0-15.0 [facility] Immature granulocytes/100 WB C Auto (Bld)Ordered By: Gabe Harris on 08-27-2024 Immature granulocytes/100 WBC (Bld) 0.500 % 0.0-0.9 [facility] Comment on above: IG% - Immature Granu locytes (promyelocytes, myelocytes and metamyelocytes) > 1% indicates that a LEFT SHIFT is Present. Ketones Test strip Ql (U)Ord ered By: Gabe Harris on 08-27-2024 Ketones Ql (U) Negative Negative [facility] Laboratory - Chemistry and C hemistry - challengeOrdered By: Gabe Harris on 08-27-2024 AST [Catalytic activity/Vol] 14 U/L Low 15-37 [facility] Lipaseon 08-27-2024 Lipase [Catalytic activity/Vol] 35 U/L Normal 13-75 [facility] Comment on above: Result Comment: Maude peres note:LIPASE revised reference range effective 22.New Lipase methodology. Expected to produce lower valuesthan the previous assay method.NEW Reference Range: 13 - 75 U/L Performed By: #### L 100.0100, L500.4050, L501.2450 ####[facility] [address] [place], [address] Lipase measurementOrdered By : Gabe Harris on 08-27-2024 Lipase [Catalytic activity/Vol] 35 U/L 13-75 [facility] Comment on above: Please note:LIPASE r evised reference range effective 22. New Lipase methodology. Expected to produce lower values than the previous assay method. NEW Reference Range: 13 - 75 U/L Lymphocytes Auto (Unsp spec) [#/Vol]Ordered By: Gabe Harris on 08-27-2024 Lymphocytes (Bld) [#/Vol] 4.55 10*3/uL High 0.83-4.51 [facility] Lymphocytes/100 WBC Auto (Un sp spec)Ordered By: Gabe Harris on 08-27-2024 Lymphocytes/100 WBC (Bld) 40.1 % 19-41 [facility] MCV (mean corpuscular volume ) determinationOrdered By: Gabe Harris on 08-27-2024 MCV (RBC) [Entitic vol] 87.4 fL 81-99 [facility] Mean corpuscular hemoglobin (MCH) determinationOrdered By: Gabe Harris on 08-27-2024 MCH (RBC) [Entitic mass] 28.9 pg 27.0-32.0 [facility] Mean corpuscular hemoglobin concentration (MCHC) determinationOrdered By: Gabe Harris on 08-27-2024 MCHC (RBC) [Mass/Vol] 33.1 g/dL 32-36 [facility] Mean platelet volume determi nationOrdered By: Gabe Harris on 08-27-2024 Platelet mean volume (Bld) [Entitic vol] 10.1 fL 6.2-12.0 [facility] Microscopic analysis of urin e for red blood cells (RBC)Ordered By: Gabe Harris on 08-27-2024 Urine RBC 0-5 SEEN /hpf 0-5 [facility] Monocyte percentageOrdered B y: Gabe Harris on 08-27-2024 Monocytes/100 WBC (Bld) 6.1 % 0-10 [facility] Mucus LM Ql (Urine sed)Order ed By: Gabe Harris on 08-27-2024 Mucus Ql (Urine sed) 0 SEEN /hpf [facility] Neutrophil percentageOrdered By: Gabe Harris on 08-27-2024 Neutrophils/100 WBC (Bld) 50.3 % 47-70 [facility] Nitrite Test strip Ql (U)Ord ered By: Gabe Harris on 08-27-2024 Nitrite Ql (U) Negative Negative [facility] Nucleated red blood cell per centageOrdered By: Gabe Harris on 08-27-2024 Nucleated RBC/100 WBC (Bld) [Ratio] 0 % 0-5 [facility] Platelet countOrdered By: Manuel Harris on 08-27-2024 Platelets (Bld) [#/Vol] 420 10*3/uL 150-450 [facility] Potassium measurementOrdered By: Gabe Harris on 08-27-2024 Potassium [Moles/Vol] 3.9 mmol/L 3.5-5.1 [facility] Protein Test strip Ql (U)Ord ered By: Gabe Harris on 08-27-2024 Protein Ql (U) Negative Negative [facility] RBC Auto (Bld) [#/Vol]Ordere d By: Gabe Harris on 08-27-2024 RBC (Bld) [#/Vol] 4.94 10*6/uL 4.2-5.4 [facility] Serum anion gap measurementO rdered By: Gabe Harris on 08-27-2024 Anion gap [Moles/Vol] 7 mmol/L 5-15 [facility] Serum globulin measurementOr dered By: Gabe Harris on 08-27-2024 Globulin (S) [Mass/Vol] 3.6 g/dL 2.2-4.2 [facility] Serum or plasma alanine andrade otransferase (ALT) measurementOrdered By: Gabe Harris on 08-27-2024 ALT [Catalytic activity/Vol] 20 U/L 13-56 [facility] Serum or plasma albumin caitie urement (mass/volume)Ordered By: Gabe Harris on 08-27-2024 Albumin [Mass/Vol] 4.2 g/dL 3.2-5.0 [facility] Serum or plasma alkaline musa sphatase measurementOrdered By: Gabe Harris on 08-27-2024 ALP [Catalytic activity/Vol] 69 U/L 45-117 [facility] Serum or plasma calcium caitie urement (mass/volume)Ordered By: Gabe Harris on 08-27-2024 Calcium [Mass/Vol] 9.6 mg/dL 8.5-10.1 [facility] Serum or plasma creatinine m easurement (mass/volume)Ordered By: Gabe Harris on 08-27-2024 Creatinine [Mass/Vol] 0.64 mg/dL 0.55-1.02 [facility] Comment on above: The validity of the calculated GFR & GFRAA in patients over 70 years has not been determined. Clinical correlation is essential. Serum or plasma urea nitroge n measurement (mass/volume)Ordered By: Gabe Harris on 08-27-2024 Urea nitrogen [Mass/Vol] 10 mg/dL 7-18 [facility] Sodium levelOrdered By: Santo Harris on 08-27-2024 Sodium [Moles/Vol] 137 mmol/L 136-145 [facility] Total proteinOrdered By: Octavio Harris on 08-27-2024 Protein [Mass/Vol] 7.8 g/dL 6.4-8.2 [facility] Urinalysis, Completeon 08-27 BACTERIA 1+ /hpf Normal None Seen [facility] Comment on above: Order Comment: CLEAN CATCH Performed By: #### L 400.0001 ####[facility] [address] [place], [place], [id number] EPI,SQUAMOUS 5-10 SEEN Normal 5-10 [facility] Comment on above: Order Comment: CLEAN CATCH Performed By: #### L 400.0001 ####[facility] [address] [place], [address] RBC 0-5 SEEN Normal 0-5 [facility] Comment on above: Order Comment: CLEAN CATCH Performed By: #### L 400.0001 ####[facility] [address] [place], [address] WBC 0-5 SEEN Normal 0-5 [facility] Comment on above: Order Comment: CLEAN CATCH Performed By: #### L 400.0001 ####[facility] [address] [place], [address] Mucus Ql (Urine sed) 0 SEEN Normal [facility] Comment on above: Order Comment: CLEAN CATCH Performed By: #### L 400.0001 ####[facility] [address] [place], [address] Urine blood detectionOrdered By: Gabe Harris on 08-27-2024 Urine Occult Blood 25 /ul High Negative [facility] Urine clarityOrdered By: Octavio Harris on 08-27-2024 Clarity (U) Clear Clear [facility] Urine color determinationOrd ered By: Gabe Harris on 08-27-2024 Color (U) Yellow Yellow [facility] Urine leukocyte esterase det ection by dipstickOrdered By: Gabe Harris on 08-27-2024 Leukocyte esterase Test strip Ql (U) 25 /ul High Negative [facility] Urine pHOrdered By: Gabe Harris on 08-27-2024 pH (U) 6.0 [pH] 5.0 - 8.0 [facility] Urine sediment bacteria coun t by microscopy (number/high power field)Ordered By: Gabe Harris on 08-27-2024 Bacteria LM.HPF (Urine sed) [#/Area] 1 /[HPF] None Seen [facility] Urine specific gravity measu rementOrdered By: Gabe Harris on 08-27-2024 Specific gravity (U) [Rel density] 1.010 1.002-1.030 [facility] Urobilinogen Ql (U)Ordered B y: Gabe Harris on 08-27-2024 Urine Urobilinogen Normal mg/dl Normal [facility] White blood cell (WBC) count Ordered By: Gabe Harris on 08-27-2024 WBC (Bld) [#/Vol] 11.4 10*3/uL High 4.4-11.0 [facility] White blood cell countOrdere d By: Gabe Harris on 08-27-2024 Urine WBC 0-5 SEEN /hpf 0-5 [facility] Abdomen/Pelvis W IV Cont ONL Yon 08-19-2024 Abdomen/Pelvis W IV Cont ONLY Normal [facility] Absolute neutrophil countOrd ered By: Earl Smith on 08-19-2024 Neutrophils (Bld) [#/Vol] 5.0 10*3/uL 2.0-7.7 [facility] Albumin to globulin ratioOrd ered By: Earlashley Smith on 08-19-2024 Albumin/Globulin [Mass ratio] 1.2 {ratio} 0.9-2.4 [facility] Basophil percentageOrdered B y: Earl Philipkathy on 08-19-2024 Basophils/100 WBC (Bld) 0.8 % 0-1 [facility] Beta HCG ( test) Ql Ordered By: Earl Smith on 08-19-2024 Serum Test, Qualitative Negative [facility] Bilirubin Test strip Ql (U)O rdered By: Earl Smith on 08-19-2024 Bilirubin Ql (U) Negative Negative [facility] Bilirubin, totalOrdered By: Earl Smith on 08-19-2024 Bilirubin [Mass/Vol] 0.30 mg/dL 0.20-1.00 [facility] Comment on above: For patients on eltr ombopag therapy, use of Dimension [place] TBIL is not recommended. Blood urea nitrogen (BUN)/cr eatinine ratioOrdered By: Earl Smith on 08-19-2024 Urea nitrogen/Creatinine [Mass ratio] 20.3 mg/mg High 10-20 [facility] CBC W/Diff, Automatedon 08-02 Absolute Lymph 3.60 X10 3/uL Normal 0.83-4.51 [facility] Comment on above: Performed By: #### L 700.6800, L100.0100, L501.2450, L500.4050 ####[facility] [address] [place], [address] Absolute Neut 5.0 X10 3/uL Normal 2.0-7.7 [facility] Comment on above: Performed By: #### L 700.6800, L100.0100, L501.2450, L500.4050 ####[facility] [address] [place], [address] Basophils/100 WBC (Bld) 0.8 % Normal 0-1 [facility] Comment on above: Performed By: #### L 700.6800, L100.0100, L501.2450, L500.4050 ####[facility] [address] [place], [address] Eosinophils/100 WBC (Bld) 2.4 % Normal 0-5 [facility] Comment on above: Performed By: #### L 700.6800, L100.0100, L501.2450, L500.4050 ####[facility] [address] [place], [address] Erythrocyte distribution width (RBC) [Ratio] 13.4 % Normal 11.6-14.6 [facility] Comment on above: Performed By: #### L 700.6800, L100.0100, L501.2450, L500.4050 ####[facility] [address] [place], [address] Hematocrit (Bld) [Volume fraction] 38.2 % Normal 37-47 [facility] Comment on above: Performed By: #### L 700.6800, L100.0100, L501.2450, L500.4050 ####[facility] [address] [place], [address] Hemoglobin (Bld) [Mass/Vol] 12.7 g/dL Normal 12.0-15.0 [facility] Comment on above: Performed By: #### L 700.6800, L100.0100, L501.2450, L500.4050 ####[facility] [address] [place], [address] IG% 0.400 Normal 0.0-0.9 [facility] Comment on above: Result Comment: IG% - Immature Granulocytes (promyelocytes, myelocytes andmetamyelocytes) > 1% indicates that a LEFT SHIFT is Present. Performed By: #### L 700.6800, L100.0100, L501.2450, L500.4050 ####[facility] [address] [place], [address] Lymphocytes/100 WBC (Bld) 37.9 % Normal 19-41 [facility] Comment on above: Performed By: #### L 700.6800, L100.0100, L501.2450, L500.4050 ####[facility] [address] [place], [address] MCH (RBC) [Entitic mass] 29.1 pg Normal 27.0-32.0 [facility] Comment on above: Performed By: #### L 700.6800, L100.0100, L501.2450, L500.4050 ####[facility] [address] [place], [address] MCHC (RBC) [Mass/Vol] 33.2 g/dL Normal 32-36 [facility] Comment on above: Performed By: #### L 700.6800, L100.0100, L501.2450, L500.4050 ####[facility] [address] [place], [address] MCV (RBC) [Entitic vol] 87.4 fL Normal 81-99 [facility] Comment on above: Performed By: #### L 700.6800, L100.0100, L501.2450, L500.4050 ####[facility] [address] [place], [address] Monocytes/100 WBC (Bld) 6.2 % Normal 0-10 [facility] Comment on above: Performed By: #### L 700.6800, L100.0100, L501.2450, L500.4050 ####[facility] [address] [place], [address] Neutrophils/100 WBC (Bld) 52.3 % Normal 47-70 [facility] Comment on above: Performed By: #### L 700.6800, L100.0100, L501.2450, L500.4050 ####[facility] [address] [place], [address] Nucleated RBC (Bld) [#/Vol] 0 10*3/uL Normal 0-5 [facility] Comment on above: Performed By: #### L 700.6800, L100.0100, L501.2450, L500.4050 ####[facility] [address] [place], [address] Platelet mean volume (Bld) [Entitic vol] 9.8 fL Normal 6.2-12.0 [facility] Comment on above: Performed By: #### L 700.6800, L100.0100, L501.2450, L500.4050 ####[facility] [address] [place], [address] Platelets (Bld) [#/Vol] 365 10*3/uL Normal 150-450 [facility] Comment on above: Performed By: #### L 700.6800, L100.0100, L501.2450, L500.4050 ####[facility] [address] [place], [address] RBC (Bld) [#/Vol] 4.37 10*6/uL Normal 4.2-5.4 [facility] Comment on above: Performed By: #### L 700.6800, L100.0100, L501.2450, L500.4050 ####[facility] [address] [place], [address] RDW SD 43.1 fl Normal 35.1-43.9 [facility] Comment on above: Performed By: #### L 700.6800, L100.0100, L501.2450, L500.4050 ####[facility] [address] [place], [address] WBC (Bld) [#/Vol] 9.5 10*3/uL Normal 4.4-11.0 [facility] Comment on above: Performed By: #### L 700.6800, L100.0100, L501.2450, L500.4050 ####[facility] [address] [place], [address] Carbon dioxide measurementOr dered By: Earl Smith on 08-19-2024 CO2 [Moles/Vol] 26.0 mmol/L 21.0-32.0 [facility] Chloride measurementOrdered By: Earl Smith on 08-19-2024 Chloride [Moles/Vol] 108 mmol/L High 98-107 [facility] Comprehensive Metabolic Prof ilon 08-19-2024 Albumin [Mass/Vol] 3.7 g/dL Normal 3.2-5.0 [facility] Comment on above: Performed By: #### L 700.6800, L100.0100, L501.2450, L500.4050 ####[facility] [address] [place], [address] Albumin/Globulin [Mass ratio] 1.2 {ratio} Normal 0.9-2.4 [facility] Comment on above: Performed By: #### L 700.6800, L100.0100, L501.2450, L500.4050 ####[facility] [address] [place], [address] ALK P 60 U/L Normal 45-117 [facility] Comment on above: Performed By: #### L 700.6800, L100.0100, L501.2450, L500.4050 ####[facility] [address] [place], [address] ALT [Catalytic activity/Vol] 19 U/L Normal 13-56 [facility] Comment on above: Performed By: #### L 700.6800, L100.0100, L501.2450, L500.4050 ####[facility] [address] [place], [address] AST [Catalytic activity/Vol] 10 U/L Low 15-37 [facility] Comment on above: Performed By: #### L 700.6800, L100.0100, L501.2450, L500.4050 ####[facility] [address] [place], [address] Bilirubin [Mass/Vol] 0.30 mg/dL Normal 0.20-1.00 [facility] Comment on above: Result Comment: For patients on eltrombopag therapy, use of Dimension [place] TBIL is not recommended. Performed By: #### L 700.6800, L100.0100, L501.2450, L500.4050 ####[facility] [address] [place], [address] BUN/CRE 20.3 RATIO High 10-20 [facility] Comment on above: Performed By: #### L 700.6800, L100.0100, L501.2450, L500.4050 ####[facility] [address] [place], [address] CA,Total 9.2 mg/dL Normal 8.5-10.1 [facility] Comment on above: Performed By: #### L 700.6800, L100.0100, L501.2450, L500.4050 ####[facility] [address] [place], [address] Chloride [Moles/Vol] 108 mmol/L High 98-107 [facility] Comment on above: Performed By: #### L 700.6800, L100.0100, L501.2450, L500.4050 ####[facility] [address] [place], [address] CO2 [Moles/Vol] 26.0 mmol/L Normal 21.0-32.0 [facility] Comment on above: Performed By: #### L 700.6800, L100.0100, L501.2450, L500.4050 ####[facility] [address] [place], [address] Creatinine [Mass/Vol] 0.59 mg/dL Normal 0.55-1.02 [facility] Comment on above: Result Comment: The validity of the calculated GFR GFRAA in patients over70 years has not been determined. Clinical correlation isessential. Performed By: #### L 700.6800, L100.0100, L501.2450, L500.4050 ####[facility] [address] [place], [address] ECRCL 130.67 ml/min Normal [facility] Comment on above: Performed By: #### L 700.6800, L100.0100, L501.2450, L500.4050 ####[facility] [address] [place], [address] EST GFR - AA 147 mL/min Normal >60 [facility] Comment on above: Result Comment: Afri can [place] GFR Calc Performed By: #### L 700.6800, L100.0100, L501.2450, L500.4050 ####[facility] [address] [place], [address] GAP 4 Low 5-15 [facility] Comment on above: Performed By: #### L 700.6800, L100.0100, L501.2450, L500.4050 ####[facility] [address] [place], [address] GFR/1.73 sq M.predicted among non-blacks MDRD (S/P/Bld) [Vol rate/Area] 122 mL/min/{1.73_m2} Normal >60 [facility] Comment on above: Result Comment: Non- GFR Calc Performed By: #### L 700.6800, L100.0100, L501.2450, L500.4050 ####[facility] [address] [place], [address] Globulin (S) [Mass/Vol] 3.0 g/dL Normal 2.2-4.2 [facility] Comment on above: Performed By: #### L 700.6800, L100.0100, L501.2450, L500.4050 ####[facility] [address] [place], [address] Glucose [Mass/Vol] 96 mg/dL Normal 74-106 [facility] Comment on above: Performed By: #### L 700.6800, L100.0100, L501.2450, L500.4050 ####[facility] [address] [place], [address] Potassium [Moles/Vol] 3.7 mmol/L Normal 3.5-5.1 [facility] Comment on above: Performed By: #### L 700.6800, L100.0100, L501.2450, L500.4050 ####[facility] [address] [place], [address] Sodium [Moles/Vol] 138 mmol/L Normal 136-145 [facility] Comment on above: Performed By: #### L 700.6800, L100.0100, L501.2450, L500.4050 ####[facility] [address] [place], [address] T PROT 6.7 g/dL Normal 6.4-8.2 [facility] Comment on above: Performed By: #### L 700.6800, L100.0100, L501.2450, L500.4050 ####[facility] [address] [place], [address] Urea nitrogen [Mass/Vol] 12 mg/dL Normal 7-18 [facility] Comment on above: Performed By: #### L 700.6800, L100.0100, L501.2450, L500.4050 ####[facility] [address] [place], [address] Emergency Department Summary on 08-19-2024 Emergency Department Summary Normal [facility] Eosinophil percentageOrdered By: Earl Smith on 08-19-2024 Eosinophils/100 WBC (Bld) 2.4 % 0-5 [facility] Epithelial cells.squamous LM Ql (Urine sed)Ordered By: Earl Smith on 08-19-2024 Epithelial cells.squamous LM.HPF (Urine sed) [#/Area] 0 /[HPF] 5-10 [facility] Erythrocyte distribution wid th (RBC) [Ratio]Ordered By: Earl Smith on 08-19-2024 Erythrocyte distribution width (RBC) [Entitic vol] 43.1 fL 35.1-43.9 [facility] Erythrocyte distribution wid th ratioOrdered By: Earl Smith on 08-19-2024 Erythrocyte distribution width (RBC) [Ratio] 13.4 % 11.6-14.6 [facility] Estimated glomerular filtrat ion rate (GFR) AmericanOrdered By: Earl Smith on 08-19-2024 Estimated GFR (MDRD) Amer 147 mL/min >60 [facility] Comment on above: GFR Calc Estimation of creatinine ojdi aranceOrdered By: Earl Smith on 08-19-2024 Estimated Creatinine Clearance Calc 130.67 ml/min [facility] Gallbladderon 08-19-2024 Gallbladder Normal [facility] Glomerular filtration rate ( GFR) estimationOrdered By: Earl Smith on 08-19-2024 Estimated GFR (MDRD) Non-Af Amer 122 mL/min >60 [facility] Comment on above: Non- GFR Calc Glucose Ql (U)Ordered By: Paco Smith on 08-19-2024 Urine Glucose (UA) Normal mg/dl Normal [facility] Glucose measurementOrdered B y: Earl Smith on 08-19-2024 Glucose [Mass/Vol] 96 mg/dL 74-106 [facility] Hematocrit Auto (Bld) [Volum e fraction]Ordered By: Earl Smith on 08-19-2024 Hematocrit (Bld) [Volume fraction] 38.2 % 37-47 [facility] Hemoglobin measurementOrdere d By: Earl Smith on 08-19-2024 Hemoglobin (Bld) [Mass/Vol] 12.7 g/dL 12.0-15.0 [facility] Immature granulocytes/100 WB C Auto (Bld)Ordered By: Earl Smith on 08-19-2024 Immature granulocytes/100 WBC (Bld) 0.400 % 0.0-0.9 [facility] Comment on above: IG% - Immature Granu locytes (promyelocytes, myelocytes and metamyelocytes) > 1% indicates that a LEFT SHIFT is Present. Ketones Test strip Ql (U)Ord ered By: Earl Smith on 08-19-2024 Ketones Ql (U) Negative Negative [facility] Laboratory - Chemistry and C hemistry - challengeOrdered By: Earl Smith on 08-19-2024 AST [Catalytic activity/Vol] 10 U/L Low 15-37 [facility] Lipaseon 08-19-2024 Lipase [Catalytic activity/Vol] 37 U/L Normal 13-75 [facility] Comment on above: Result Comment: Plea se note:LIPASE revised reference range effective 22.New Lipase methodology. Expected to produce lower valuesthan the previous assay method.NEW Reference Range: 13 - 75 U/L Performed By: #### L 700.6800, L100.0100, L501.2450, L500.4050 ####[facility] [address] [place], [address] Lipase measurementOrdered By : Earl Smith on 08-19-2024 Lipase [Catalytic activity/Vol] 37 U/L 13-75 [facility] Comment on above: Please note:LIPASE r evised reference range effective 22. New Lipase methodology. Expected to produce lower values than the previous assay method. NEW Reference Range: 13 - 75 U/L Lymphocytes Auto (Unsp spec) [#/Vol]Ordered By: Earl Smith on 08-19-2024 Lymphocytes (Bld) [#/Vol] 3.60 10*3/uL 0.83-4.51 [facility] Lymphocytes/100 WBC Auto (Un sp spec)Ordered By: Earl Smith on 08-19-2024 Lymphocytes/100 WBC (Bld) 37.9 % 19-41 [facility] MCV (mean corpuscular volume ) determinationOrdered By: Earl Smith on 08-19-2024 MCV (RBC) [Entitic vol] 87.4 fL 81-99 [facility] Mean corpuscular hemoglobin (MCH) determinationOrdered By: Earl Smith on 08-19-2024 MCH (RBC) [Entitic mass] 29.1 pg 27.0-32.0 [facility] Mean corpuscular hemoglobin concentration (MCHC) determinationOrdered By: Earl Smith on 08-19-2024 MCHC (RBC) [Mass/Vol] 33.2 g/dL 32-36 [facility] Mean platelet volume determi nationOrdered By: Earl Smith on 08-19-2024 Platelet mean volume (Bld) [Entitic vol] 9.8 fL 6.2-12.0 [facility] Microscopic analysis of urin e for red blood cells (RBC)Ordered By: Earl Smith on 08-19-2024 Urine RBC 5-10 SEEN /hpf 0-5 [facility] Monocyte percentageOrdered B y: Earl Smith on 08-19-2024 Monocytes/100 WBC (Bld) 6.2 % 0-10 [facility] Mucus LM Ql (Urine sed)Order ed By: Earl Smith on 08-19-2024 Mucus Ql (Urine sed) 0 SEEN /hpf [facility] Neutrophil percentageOrdered By: Earl Smith on 08-19-2024 Neutrophils/100 WBC (Bld) 52.3 % 47-70 [facility] Nitrite Test strip Ql (U)Ord ered By: Earl Smith on 08-19-2024 Nitrite Ql (U) Negative Negative [facility] Nucleated red blood cell per centageOrdered By: Earl Smith on 08-19-2024 Nucleated RBC/100 WBC (Bld) [Ratio] 0 % 0-5 [facility] Platelet countOrdered By: Paco Smith on 08-19-2024 Platelets (Bld) [#/Vol] 365 10*3/uL 150-450 [facility] Potassium measurementOrdered By: Earl Smith on 08-19-2024 Potassium [Moles/Vol] 3.7 mmol/L 3.5-5.1 [facility] ,Serum,hCG Quali.on 08-19-2024 HCG, SERUM QUAL Negative Normal [facility] Comment on above: Performed By: #### L 700.6800, L100.0100, L501.2450, L500.4050 ####[facility] [address] [place], [address] Protein Test strip Ql (U)Ord ered By: Earl Smith on 08-19-2024 Protein Ql (U) Negative Negative [facility] RBC Auto (Bld) [#/Vol]Ordere d By: Earl Smith on 08-19-2024 RBC (Bld) [#/Vol] 4.37 10*6/uL 4.2-5.4 [facility] Serum anion gap measurementO rdered By: Earl Smith on 08-19-2024 Anion gap [Moles/Vol] 4 mmol/L Low 5-15 [facility] Serum globulin measurementOr dered By: Earl Smith on 08-19-2024 Globulin (S) [Mass/Vol] 3.0 g/dL 2.2-4.2 [facility] Serum or plasma alanine andrade otransferase (ALT) measurementOrdered By: Earl Smith on 08-19-2024 ALT [Catalytic activity/Vol] 19 U/L 13-56 [facility] Serum or plasma albumin caitie urement (mass/volume)Ordered By: Earl Smith on 08-19-2024 Albumin [Mass/Vol] 3.7 g/dL 3.2-5.0 [facility] Serum or plasma alkaline musa sphatase measurementOrdered By: Earl Smith on 08-19-2024 ALP [Catalytic activity/Vol] 60 U/L 45-117 [facility] Serum or plasma calcium caitie urement (mass/volume)Ordered By: Earl Smith on 08-19-2024 Calcium [Mass/Vol] 9.2 mg/dL 8.5-10.1 [facility] Serum or plasma creatinine m easurement (mass/volume)Ordered By: Earl Smith on 08-19-2024 Creatinine [Mass/Vol] 0.59 mg/dL 0.55-1.02 [facility] Comment on above: The validity of the calculated GFR & GFRAA in patients over 70 years has not been determined. Clinical correlation is essential. Serum or plasma urea nitroge n measurement (mass/volume)Ordered By: Earl Smith on 08-19-2024 Urea nitrogen [Mass/Vol] 12 mg/dL - [facility] Sodium levelOrdered By: Earl Smith on 08-19-2024 Sodium [Moles/Vol] 138 mmol/L 136-145 [facility] Total proteinOrdered By: Carolynn Smith on 08-19-2024 Protein [Mass/Vol] 6.7 g/dL 6.4-8.2 [facility] Urinalysis, Completeon 08-19 EPI,SQUAMOUS 0-5 SEEN Normal 5-10 [facility] Comment on above: Order Comment: CLEAN CATCH Performed By: #### L 400.0001 ####[facility] [address] [place], [address] RBC 5-10 SEEN Normal 0-5 [facility] Comment on above: Order Comment: CLEAN CATCH Performed By: #### L 400.0001 ####[facility] [address] [place], [address] WBC 0-5 SEEN Normal 0-5 [facility] Comment on above: Order Comment: CLEAN CATCH Performed By: #### L 400.0001 ####[facility] [address] [place], [address] BACTERIA 0 SEEN Normal None Seen [facility] Comment on above: Order Comment: CLEAN CATCH Performed By: #### L 400.0001 ####[facility] [address] [place], [address] Mucus Ql (Urine sed) 0 SEEN Normal [facility] Comment on above: Order Comment: CLEAN CATCH Performed By: #### L 400.0001 ####[facility] [address] [place], [address] Urine blood detectionOrdered By: Earl Smith on 08-19-2024 Urine Occult Blood 10 /ul High Negative [facility] Urine clarityOrdered By: Carolynn Smith on 08-19-2024 Clarity (U) Clear Clear [facility] Urine color determinationOrd ered By: Earl Smith on 08-19-2024 Color (U) Yellow Yellow [facility] Urine leukocyte esterase det ection by dipstickOrdered By: Earl Smith on 08-19-2024 Leukocyte esterase Test strip Ql (U) Negative Negative [facility] Urine pHOrdered By: Earl dorsey on 08-19-2024 pH (U) 7.0 [pH] 5.0 - 8.0 [facility] Urine sediment bacteria coun t by microscopy (number/high power field)Ordered By: Earl Smith on 08-19-2024 Bacteria LM.HPF (Urine sed) [#/Area] 0 /[HPF] None Seen [facility] Urine specific gravity measu rementOrdered By: Earl Smith on 08-19-2024 Specific gravity (U) [Rel density] 1.005 1.002-1.030 [facility] Urobilinogen Ql (U)Ordered B y: Earl Smith on 08-19-2024 Urine Urobilinogen Normal mg/dl Normal [facility] White blood cell (WBC) count Ordered By: Earl Smith on 08-19-2024 WBC (Bld) [#/Vol] 9.5 10*3/uL 4.4-11.0 [facility] White blood cell countOrdere d By: Earl Smith on 08-19-2024 Urine WBC 0-5 SEEN /hpf 0-5 [facility] Hepatitis B Core Ab Totalon 08-17-2024 HEP B CORE,TOT Negative Normal Negative [facility] Comment on above: Result Comment: Perf ormed at: - [facility] [id number] Director: Madhu Cunningham PhD, Phone: [phone] Performed By: #### L 3890.6200, L3890.6100, L100.0100, L500.4050, L3100.0460, L3400.0000, L501.6710, L3400.8000 ####[facility] [address] [place], [place], [phone] Quantiferon TB-Gold+on 08-17 QFT MITOGEN LUCAS > 10.00 Normal . [facility] Comment on above: Performed By: #### L 3890.6200, L3890.6100, L100.0100, L500.4050, L3100.0460, L3400.0000, L501.6710, L3400.8000 ####[facility] [address] [place], [address] QFT NIL VALUE 0 IU/mL Normal . [facility] Comment on above: Performed By: #### L 3890.6200, L3890.6100, L100.0100, L500.4050, L3100.0460, L3400.0000, L501.6710, L3400.8000 ####[facility] [address] [place], [place], [phone] QFT TB GOLD+ Comment Normal . [facility] Comment on above: Result Comment: Louie tiFERON-TB Gold Plus is a qualitative indirect test forM tuberculosis infection (including disease) and isintended for use in conjunction with risk assessment,radiography, and other medical and diagnostic evaluations.The QuantiFERON-TB Gold Plus result is determined bysubtracting the Nil value from either TB antigen (Ag)value. The Mitogen tube serves as a control for the test. Performed By: #### L 3890.6200, L3890.6100, L100.0100, L500.4050, L3100.0460, L3400.0000, L501.6710, L3400.8000 ####[facility] [address] [place], [address](558 QFT TB POS CRIT Negative Normal Negative [facility] Comment on above: Result Comment: No r esponse to M tuberculosis antigens detected.Infection with M tuberculosis is unlikely, but high riskindividuals should be considered for additional testing(ATS/IDSA/CDC Clinical Practice Guidelines, 2017). Thereference range is an Antigen minus Nil result of <0.35IU/mL.The specimen received for QuantiFERON testing was incubatedby the ordering institution. Specific procedures outlinedin our Directory of Services and in the package insert forthe QuantiFERON Gold (In Tube) test must be followed toenable for proper stimulation of cells for the productionof interferon gamma. Chemiluminescence immunoassaymethodology Performed By: #### L 3890.6200, L3890.6100, L100.0100, L500.4050, L3100.0460, L3400.0000, L501.6710, L3400.8000 ####[facility] [address] [place], [address] QFT TB1+ AG LUCAS 0.01 IU/mL Normal . [facility] Comment on above: Performed By: #### L 3890.6200, L3890.6100, L100.0100, L500.4050, L3100.0460, L3400.0000, L501.6710, L3400.8000 ####[facility] [address] [place], [address] QFT TB2+ AG LUCAS 0 IU/mL Normal . [facility] Comment on above: Performed By: #### L 3890.6200, L3890.6100, L100.0100, L500.4050, L3100.0460, L3400.0000, L501.6710, L3400.8000 ####[facility] [address] [place], [address] V-Zoster IgG (Immunity)on V ZOSTER IgG Normal [facility] Comment on above: Result Comment: RESU LT: REACTIVEPlease note reference interval changeA Reactive result is considered evidence of immunity toVZV. Reactive indicates that VZV IgG was detectedconsistent with previous infection and/or vaccination.A Non Reactive result indicates that VZV IgG was notdetected suggesting that immunity has not been acquired. Performed By: #### L 3890.6200, L3890.6100, L100.0100, L500.4050, L3100.0460, L3400.0000, L501.6710, L3400.8000 ####[facility] [address] [place], [address] CBC W/Diff, Automatedon 12-09 03-2023 Absolute Lymph 3.10 X10 3/uL Normal 0.83-4.51 [facility] Comment on above: Performed By: #### L 3890.6200, L3890.6100, L100.0100, L500.4050, L3100.0460, L3400.0000, L501.6710, L3400.8000 ####[facility] [address] [place], [address] Absolute Neut 4.8 X10 3/uL Normal 2.0-7.7 [facility] Comment on above: Performed By: #### L 3890.6200, L3890.6100, L100.0100, L500.4050, L3100.0460, L3400.0000, L501.6710, L3400.8000 ####[facility] [address] [place], [address] Basophils/100 WBC (Bld) 0.7 % Normal 0-1 [facility] Comment on above: Performed By: #### L 3890.6200, L3890.6100, L100.0100, L500.4050, L3100.0460, L3400.0000, L501.6710, L3400.8000 ####[facility] [address] [place], [address] Eosinophils/100 WBC (Bld) 2.0 % Normal 0-5 [facility] Comment on above: Performed By: #### L 3890.6200, L3890.6100, L100.0100, L500.4050, L3100.0460, L3400.0000, L501.6710, L3400.8000 ####[facility] [address] [place], [address] Erythrocyte distribution width (RBC) [Ratio] 13.5 % Normal 11.6-14.6 [facility] Comment on above: Performed By: #### L 3890.6200, L3890.6100, L100.0100, L500.4050, L3100.0460, L3400.0000, L501.6710, L3400.8000 ####[facility] [address] [place], [address] Hematocrit (Bld) [Volume fraction] 38.9 % Normal 37-47 [facility] Comment on above: Performed By: #### L 3890.6200, L3890.6100, L100.0100, L500.4050, L3100.0460, L3400.0000, L501.6710, L3400.8000 ####[facility] [address] [place], [address] Hemoglobin (Bld) [Mass/Vol] 13.1 g/dL Normal 12.0-15.0 [facility] Comment on above: Performed By: #### L 3890.6200, L3890.6100, L100.0100, L500.4050, L3100.0460, L3400.0000, L501.6710, L3400.8000 ####[facility] [address] [place], [address] IG% 0.200 Normal 0.0-0.9 [facility] Comment on above: Result Comment: IG% - Immature Granulocytes (promyelocytes, myelocytes andmetamyelocytes) > 1% indicates that a LEFT SHIFT is Present. Performed By: #### L 3890.6200, L3890.6100, L100.0100, L500.4050, L3100.0460, L3400.0000, L501.6710, L3400.8000 ####[facility] [address] [place], [address] Lymphocytes/100 WBC (Bld) 35.7 % Normal 19-41 [facility] Comment on above: Performed By: #### L 3890.6200, L3890.6100, L100.0100, L500.4050, L3100.0460, L3400.0000, L501.6710, L3400.8000 ####[facility] [address] [place], [address] MCH (RBC) [Entitic mass] 29.2 pg Normal 27.0-32.0 [facility] Comment on above: Performed By: #### L 3890.6200, L3890.6100, L100.0100, L500.4050, L3100.0460, L3400.0000, L501.6710, L3400.8000 ####[facility] [address] [place], [address] MCHC (RBC) [Mass/Vol] 33.7 g/dL Normal 32-36 [facility] Comment on above: Performed By: #### L 3890.6200, L3890.6100, L100.0100, L500.4050, L3100.0460, L3400.0000, L501.6710, L3400.8000 ####[facility] [address] [place], [address] MCV (RBC) [Entitic vol] 86.8 fL Normal 81-99 [facility] Comment on above: Performed By: #### L 3890.6200, L3890.6100, L100.0100, L500.4050, L3100.0460, L3400.0000, L501.6710, L3400.8000 ####[facility] [address] [place], [address] Monocytes/100 WBC (Bld) 5.6 % Normal 0-10 [facility] Comment on above: Performed By: #### L 3890.6200, L3890.6100, L100.0100, L500.4050, L3100.0460, L3400.0000, L501.6710, L3400.8000 ####[facility] [address] [place], [address] Neutrophils/100 WBC (Bld) 55.8 % Normal 47-70 [facility] Comment on above: Performed By: #### L 3890.6200, L3890.6100, L100.0100, L500.4050, L3100.0460, L3400.0000, L501.6710, L3400.8000 ####[facility] [address] [place], [address] Nucleated RBC (Bld) [#/Vol] 0 10*3/uL Normal 0-5 [facility] Comment on above: Performed By: #### L 3890.6200, L3890.6100, L100.0100, L500.4050, L3100.0460, L3400.0000, L501.6710, L3400.8000 ####[facility] [address] [place], [address] Platelet mean volume (Bld) [Entitic vol] 10.0 fL Normal 6.2-12.0 [facility] Comment on above: Performed By: #### L 3890.6200, L3890.6100, L100.0100, L500.4050, L3100.0460, L3400.0000, L501.6710, L3400.8000 ####[facility] [id number] [place], [address] Platelets (Bld) [#/Vol] 419 10*3/uL Normal 150-450 [facility] Comment on above: Performed By: #### L 3890.6200, L3890.6100, L100.0100, L500.4050, L3100.0460, L3400.0000, L501.6710, L3400.8000 ####[facility] [address] [place], [address] RBC (Bld) [#/Vol] 4.48 10*6/uL Normal 4.2-5.4 [facility] Comment on above: Performed By: #### L 3890.6200, L3890.6100, L100.0100, L500.4050, L3100.0460, L3400.0000, L501.6710, L3400.8000 ####[facility] [address] [place], [address]([phone]) RDW SD 42.8 fl Normal 35.1-43.9 [facility] Comment on above: Performed By: #### L 3890.6200, L3890.6100, L100.0100, L500.4050, L3100.0460, L3400.0000, L501.6710, L3400.8000 ####[facility] [address] [place], [address](713) WBC (Bld) [#/Vol] 8.7 10*3/uL Normal 4.4-11.0 [facility] Comment on above: Performed By: #### L 3890.6200, L3890.6100, L100.0100, L500.4050, L3100.0460, L3400.0000, L501.6710, L3400.8000 ####[facility] [address] [place], [place], [phone] CRPon 08-13-2024 C-REACTIVE PROT 2.96 mg/L Normal 0.0-3.0 [facility] Comment on above: Result Comment: C-Re active Protein (CRP) provides useful information for thediagnosis, therapy and monitoring of inflammatory processesand associated diseases. For the evaluation of Relative Riskfor Cardiovascular Disease, a High Sensitivity CRP (HSCRP)should be ordered. Performed By: #### L 3890.6200, L3890.6100, L100.0100, L500.4050, L3100.0460, L3400.0000, L501.6710, L3400.8000 ####[facility] [address] [place], [address] Comprehensive Metabolic Prof ilon 08-13-2024 Albumin [Mass/Vol] 4.0 g/dL Normal 3.2-5.0 [facility] Comment on above: Performed By: #### L 3890.6200, L3890.6100, L100.0100, L500.4050, L3100.0460, L3400.0000, L501.6710, L3400.8000 ####[facility] [address] [place], [address] Albumin/Globulin [Mass ratio] 1.2 {ratio} Normal 0.9-2.4 [facility] Comment on above: Performed By: #### L 3890.6200, L3890.6100, L100.0100, L500.4050, L3100.0460, L3400.0000, L501.6710, L3400.8000 ####[facility] [address] [place], [address] ALK P 62 U/L Normal 45-117 [facility] Comment on above: Performed By: #### L 3890.6200, L3890.6100, L100.0100, L500.4050, L3100.0460, L3400.0000, L501.6710, L3400.8000 ####[facility] [address] [place], [address] ALT [Catalytic activity/Vol] 15 U/L Normal 13-56 [facility] Comment on above: Performed By: #### L 3890.6200, L3890.6100, L100.0100, L500.4050, L3100.0460, L3400.0000, L501.6710, L3400.8000 ####[facility] [address] [place], [address] AST [Catalytic activity/Vol] 10 U/L Low 15-37 [facility] Comment on above: Performed By: #### L 3890.6200, L3890.6100, L100.0100, L500.4050, L3100.0460, L3400.0000, L501.6710, L3400.8000 ####[facility] [address] [place], [address] Bilirubin [Mass/Vol] 0.20 mg/dL Normal 0.20-1.00 [facility] Comment on above: Result Comment: For patients on eltrombopag therapy, use of Dimension [place] TBIL is not recommended. Performed By: #### L 3890.6200, L3890.6100, L100.0100, L500.4050, L3100.0460, L3400.0000, L501.6710, L3400.8000 ####[facility] [address] [place], [address] BUN/CRE 34.3 RATIO High 10-20 [facility] Comment on above: Performed By: #### L 3890.6200, L3890.6100, L100.0100, L500.4050, L3100.0460, L3400.0000, L501.6710, L3400.8000 ####[facility] [address] [place], [address] CA,Total 9.1 mg/dL Normal 8.5-10.1 [facility] Comment on above: Performed By: #### L 3890.6200, L3890.6100, L100.0100, L500.4050, L3100.0460, L3400.0000, L501.6710, L3400.8000 ####[facility] [address] [place], [address] Chloride [Moles/Vol] 108 mmol/L High 98-107 [facility] Comment on above: Performed By: #### L 3890.6200, L3890.6100, L100.0100, L500.4050, L3100.0460, L3400.0000, L501.6710, L3400.8000 ####[facility] [address] [place], [place], [phone]) CO2 [Moles/Vol] 24.0 mmol/L Normal 21.0-32.0 [facility] Comment on above: Performed By: #### L 3890.6200, L3890.6100, L100.0100, L500.4050, L3100.0460, L3400.0000, L501.6710, L3400.8000 ####[facility] [address] [place], [place], [phone]([phone]) Creatinine [Mass/Vol] 0.55 mg/dL Normal 0.55-1.02 [facility] Comment on above: Result Comment: The validity of the calculated GFR GFRAA in patients over70 years has not been determined. Clinical correlation isessential. Performed By: #### L 3890.6200, L3890.6100, L100.0100, L500.4050, L3100.0460, L3400.0000, L501.6710, L3400.8000 ####[facility] [address] [place], [place], [phone] EST GFR - AA 159 mL/min Normal >60 [facility] Comment on above: Result Comment: Afri can [place] GFR Calc Performed By: #### L 3890.6200, L3890.6100, L100.0100, L500.4050, L3100.0460, L3400.0000, L501.6710, L3400.8000 ####[facility] [address] [place], [address] GAP 8 Normal 5-15 [facility] Comment on above: Performed By: #### L 3890.6200, L3890.6100, L100.0100, L500.4050, L3100.0460, L3400.0000, L501.6710, L3400.8000 ####[facility] [address] [place], [address] GFR/1.73 sq M.predicted among non-blacks MDRD (S/P/Bld) [Vol rate/Area] 131 mL/min/{1.73_m2} Normal >60 [facility] Comment on above: Result Comment: Non- GFR Calc Performed By: #### L 3890.6200, L3890.6100, L100.0100, L500.4050, L3100.0460, L3400.0000, L501.6710, L3400.8000 ####[facility] [address] [place], [address] Globulin (S) [Mass/Vol] 3.3 g/dL Normal 2.2-4.2 [facility] Comment on above: Performed By: #### L 3890.6200, L3890.6100, L100.0100, L500.4050, L3100.0460, L3400.0000, L501.6710, L3400.8000 ####[facility] [address] [place], [address] Glucose [Mass/Vol] 98 mg/dL Normal 74-106 [facility] Comment on above: Performed By: #### L 3890.6200, L3890.6100, L100.0100, L500.4050, L3100.0460, L3400.0000, L501.6710, L3400.8000 ####[facility] [address] [place], [address] Potassium [Moles/Vol] 3.5 mmol/L Normal 3.5-5.1 [facility] Comment on above: Performed By: #### L 3890.6200, L3890.6100, L100.0100, L500.4050, L3100.0460, L3400.0000, L501.6710, L3400.8000 ####[facility] [address] [place], [place], [phone] Sodium [Moles/Vol] 139 mmol/L Normal 136-145 [facility] Comment on above: Performed By: #### L 3890.6200, L3890.6100, L100.0100, L500.4050, L3100.0460, L3400.0000, L501.6710, L3400.8000 ####[facility] [address] [place], [address] T PROT 7.3 g/dL Normal 6.4-8.2 [facility] Comment on above: Performed By: #### L 3890.6200, L3890.6100, L100.0100, L500.4050, L3100.0460, L3400.0000, L501.6710, L3400.8000 ####[facility] [address] [place], [place], [phone] Urea nitrogen [Mass/Vol] 19 mg/dL High 7-18 [facility] Comment on above: Performed By: #### L 3890.6200, L3890.6100, L100.0100, L500.4050, L3100.0460, L3400.0000, L501.6710, L3400.8000 ####[facility] [address] [place], [place], [phone] Gastroenterology Visit Repor ton 08-13-2024 Gastroenterology Visit Report Normal [facility] Hepatitis B Surface Antibody on 08-13-2024 HEP B Surf Ab Non-Reactive Normal [facility] Comment on above: Order Comment: Reaso n for Exam: Crohn's Result Comment: Non Reactive: Inconsistent with immunity less than <10 mIU/mL Reactive: Consistent with immunity greater than or equal to 10 mIU/mL Performed By: #### L 3890.6200, L3890.6100, L100.0100, L500.4050, L3100.0460, L3400.0000, L501.6710, L3400.8000 ####[facility] [address] [place], [place], [phone] Hepatitis B Surface Antigeno n 08-13-2024 HEP B Surf Ag Non-Reactive Normal Nonreactive [facility] Comment on above: Order Comment: Reaso n for Exam: Crohn's Performed By: #### L 3890.6200, L3890.6100, L100.0100, L500.4050, L3100.0460, L3400.0000, L501.6710, L3400.8000 ####[facility] [address] [place], [place], [phone] Calprotectin, Stoolon [address] 21 ug/g Normal 0-120 [facility] Comment on above: Result Comment: Conc entration Interpretation Follow-Up< 5 - 50 ug/g Normal None>50 -120 ug/g Borderline Re-evaluate in 4-6 weeks >120 ug/g Abnormal Repeat as clinically indicatedPerformed at: [employer] [id number] Director: Zaire Luna MD, Phone: [phone] Performed By: #### L 7400.3300, L7000.0700, M100.0605, M100.637, M100.6796, L7000.0750 ####[facility] [address] [place], [place], [phone] Giardia Lamblia, Stool EIAon 07-16-2024 Giardia Stool Negative Normal Negative [facility] Comment on above: Result Comment: Perf ormed at: [facility] [address] [id number] Director: Zaire Luna MD, Phone: [phone] at: [address] [id number] Director: Madhu Cunningham PhD, Phone: [phone] Performed By: #### L 7400.3300, L7000.0700, M100.0605, M100.637, M100.6796, L7000.0750 ####[facility] [address] [place], [address] L7000.0750on 07-16-2024 P ELASTASE,FECA > 800 Normal >200 [facility] Comment on above: Result Comment: Resu lt Units: ug Elast./g Severe Pancreatic Insufficiency: <100 Moderate Pancreatic Insufficiency: 100 - 200 Normal: >200 Performed By: #### L 7400.3300, L7000.0700, M100.0605, M100.637, M100.6796, L7000.0750 ####[facility] [address] [place], [address] CDIFF (PCR)on 07-14-2024 CDIFF Pending 027 027 NAP1-B1 Presumptive Negative *for epidemiolologic???use C. Diff PCR Negative- No toxigenic C. Diff Detected Normal [facility] Comment on above: Performed By: #### L 7400.3300, L7000.0700, M100.0605, M100.637, M100.6796, L7000.0750 ####[facility] [address] [place], [address] ENTERIC PATHOGEN PANEL STOOL on 07-14-2024 EP PANEL Normal [facility] Comment on above: Performed By: #### L 7400.3300, L7000.0700, M100.0605, M100.637, M100.6796, L7000.0750 ####[facility] [address] [place], [address] Stool Lactoferrin/WBCon 07-03 WBCST Normal Reference Ran ge = Negative Fecal WBC Lactoferrin Negative: No Fecal WBC Lactoferrin present Normal [facility] Comment on above: Performed By: #### L 7400.3300, L7000.0700, M100.0605, M100.637, M100.6796, L7000.0750 ####[facility] [address] [place], [address] Colonoscopy Reporton 024 Colonoscopy Report Normal [facility] EGD Reporton 07-10-2024 EGD Report Normal [facility] MR/POSTOP.ANEon 07-10-2024 MR/POSTOP.ANE Normal [facility] MR/[id number] 07-10-2024 MR/POSTOPAN2 Normal [facility] Office Visit Reporton 2023 Office Visit Report Normal [facility] ,Urineon 07-10-2024 Beta HCG ( test) Ql (U) Negative Normal [facility] Comment on above: Result Comment: Very dilute urine specimens, as indicated by a low specificgravity, may not contain correspondence representative levels of hCG.If is still suspected, a first morning urinespecimen should be collected 48 hours later and tested. Performed By: #### L 400.7600 ####[facility] [address] [place], [address] Special Stain Group Ion 11-0 Special Stain Group I Normal [facility] Comment on above: Performed By: #### P SSI ####[facility] [address] [place], [address] CBC W/Diff, Automatedon 10-0 Absolute Lymph 3.86 X10 3/uL Normal 0.83-4.51 [facility] Comment on above: Performed By: #### L 501.2450, L500.4050, L100.0100, L700.6800 ####[facility] [address] [place], [address] Absolute Neut 6.3 X10 3/uL Normal 2.0-7.7 [facility] Comment on above: Performed By: #### L 501.2450, L500.4050, L100.0100, L700.6800 ####[facility] [address] [place], [address] Basophils/100 WBC (Bld) 0.8 % Normal 0-1 [facility] Comment on above: Performed By: #### L 501.2450, L500.4050, L100.0100, L700.6800 ####[facility] [address] [place], [address] Eosinophils/100 WBC (Bld) 1.6 % Normal 0-5 [facility] Comment on above: Performed By: #### L 501.2450, L500.4050, L100.0100, L700.6800 ####[facility] [address] [place], [address] Erythrocyte distribution width (RBC) [Ratio] 13.9 % Normal 11.6-14.6 [facility] Comment on above: Performed By: #### L 501.2450, L500.4050, L100.0100, L700.6800 ####[facility] [address] [place], [address] Hematocrit (Bld) [Volume fraction] 38.7 % Normal 37-47 [facility] Comment on above: Performed By: #### L 501.2450, L500.4050, L100.0100, L700.6800 ####[facility] [address] [place], [address] Hemoglobin (Bld) [Mass/Vol] 12.6 g/dL Normal 12.0-15.0 [facility] Comment on above: Performed By: #### L 501.2450, L500.4050, L100.0100, L700.6800 ####[facility] [address] [place], [address] IG% 1.700 High 0.0-0.9 [facility] Comment on above: Result Comment: IG% - Immature Granulocytes (promyelocytes, myelocytes andmetamyelocytes) > 1% indicates that a LEFT SHIFT is Present. Performed By: #### L 501.2450, L500.4050, L100.0100, L700.6800 ####[facility] [address] [place], [address] Lymphocytes/100 WBC (Bld) 33.8 % Normal 19-41 [facility] Comment on above: Performed By: #### L 501.2450, L500.4050, L100.0100, L700.6800 ####[facility] [address] [place], [address] MCH (RBC) [Entitic mass] 28.6 pg Normal 27.0-32.0 [facility] Comment on above: Performed By: #### L 501.2450, L500.4050, L100.0100, L700.6800 ####[facility] [address] [place], [address] MCHC (RBC) [Mass/Vol] 32.6 g/dL Normal 32-36 [facility] Comment on above: Performed By: #### L 501.2450, L500.4050, L100.0100, L700.6800 ####[facility] [address] [place], [address] MCV (RBC) [Entitic vol] 88.0 fL Normal 81-99 [facility] Comment on above: Performed By: #### L 501.2450, L500.4050, L100.0100, L700.6800 ####[facility] [address] [place], [address] Monocytes/100 WBC (Bld) 7.2 % Normal 0-10 [facility] Comment on above: Performed By: #### L 501.2450, L500.4050, L100.0100, L700.6800 ####[facility] [address] [place], [address] Neutrophils/100 WBC (Bld) 54.9 % Normal 47-70 [facility] Comment on above: Performed By: #### L 501.2450, L500.4050, L100.0100, L700.6800 ####[facility] [address] [place], [address] Nucleated RBC (Bld) [#/Vol] 0 10*3/uL Normal 0-5 [facility] Comment on above: Performed By: #### L 501.2450, L500.4050, L100.0100, L700.6800 ####[facility] [address] [place], [address] Platelet mean volume (Bld) [Entitic vol] 10.1 fL Normal 6.2-12.0 [facility] Comment on above: Performed By: #### L 501.2450, L500.4050, L100.0100, L700.6800 ####[facility] [address] [place], [address] Platelets (Bld) [#/Vol] 384 10*3/uL Normal 150-450 [facility] Comment on above: Performed By: #### L 501.2450, L500.4050, L100.0100, L700.6800 ####[facility] [address] [place], [address] RBC (Bld) [#/Vol] 4.40 10*6/uL Normal 4.2-5.4 [facility] Comment on above: Performed By: #### L 501.2450, L500.4050, L100.0100, L700.6800 ####[facility] [address] [place], [address] RDW SD 45.0 fl High 35.1-43.9 [facility] Comment on above: Performed By: #### L 501.2450, L500.4050, L100.0100, L700.6800 ####[facility] [address] [place], [address] WBC (Bld) [#/Vol] 11.4 10*3/uL High 4.4-11.0 [facility] Comment on above: Performed By: #### L 501.2450, L500.4050, L100.0100, L700.6800 ####[facility] [address] [place], [address] Chest PA and Lateralon 06-07 Chest PA and Lateral Normal [facility] Comprehensive Metabolic Prof ilon 06-07-2024 Albumin [Mass/Vol] 3.7 g/dL Normal 3.2-5.0 [facility] Comment on above: Performed By: #### L 501.2450, L500.4050, L100.0100, L700.6800 ####[facility] [address] [place], [address] Albumin/Globulin [Mass ratio] 1.2 {ratio} Normal 0.9-2.4 [facility] Comment on above: Performed By: #### L 501.2450, L500.4050, L100.0100, L700.6800 ####[facility] [address] [place], [address] ALK P 64 U/L Normal 45-117 [facility] Comment on above: Performed By: #### L 501.2450, L500.4050, L100.0100, L700.6800 ####[facility] [address] [place], [address] ALT [Catalytic activity/Vol] 15 U/L Normal 13-56 [facility] Comment on above: Performed By: #### L 501.2450, L500.4050, L100.0100, L700.6800 ####[facility] [address] [place], [address] AST [Catalytic activity/Vol] 8 U/L Low 15-37 [facility] Comment on above: Performed By: #### L 501.2450, L500.4050, L100.0100, L700.6800 ####[facility] [address] [place], [address] Bilirubin [Mass/Vol] 0.20 mg/dL Normal 0.20-1.00 [facility] Comment on above: Result Comment: For patients on eltrombopag therapy, use of Dimension [place] TBIL is not recommended. Performed By: #### L 501.2450, L500.4050, L100.0100, L700.6800 ####[facility] [address] [place], [address] BUN/CRE 25.1 RATIO High 10-20 [facility] Comment on above: Performed By: #### L 501.2450, L500.4050, L100.0100, L700.6800 ####[facility] [address] [place], [address] CA,Total 8.9 mg/dL Normal 8.5-10.1 [facility] Comment on above: Performed By: #### L 501.2450, L500.4050, L100.0100, L700.6800 ####[facility] [address] [place], [address] Chloride [Moles/Vol] 112 mmol/L High 98-107 [facility] Comment on above: Performed By: #### L 501.2450, L500.4050, L100.0100, L700.6800 ####[facility] [address] [place], [address] CO2 [Moles/Vol] 23.0 mmol/L Normal 21.0-32.0 [facility] Comment on above: Performed By: #### L 501.2450, L500.4050, L100.0100, L700.6800 ####[facility] [address] [place], [address] Creatinine [Mass/Vol] 0.52 mg/dL Low 0.55-1.02 [facility] Comment on above: Result Comment: The validity of the calculated GFR GFRAA in patients over70 years has not been determined. Clinical correlation isessential. Performed By: #### L 501.2450, L500.4050, L100.0100, L700.6800 ####[facility] [address] [place], [address] ECRCL 148.99 ml/min Normal [facility] Comment on above: Performed By: #### L 501.2450, L500.4050, L100.0100, L700.6800 ####[facility] [address] [place], [address] EST GFR - AA 172 mL/min Normal >60 [facility] Comment on above: Result Comment: Afri can [place] GFR Calc Performed By: #### L 501.2450, L500.4050, L100.0100, L700.6800 ####[facility] [address] [place], [address] GAP 4 Low 5-15 [facility] Comment on above: Performed By: #### L 501.2450, L500.4050, L100.0100, L700.6800 ####[facility] [address] [place], [address] GFR/1.73 sq M.predicted among non-blacks MDRD (S/P/Bld) [Vol rate/Area] 142 mL/min/{1.73_m2} Normal >60 [facility] Comment on above: Result Comment: Non- GFR Calc Performed By: #### L 501.2450, L500.4050, L100.0100, L700.6800 ####[facility] [address] [place], [address] Globulin (S) [Mass/Vol] 3.1 g/dL Normal 2.2-4.2 [facility] Comment on above: Performed By: #### L 501.2450, L500.4050, L100.0100, L700.6800 ####[facility] [address] [place], [address] Glucose [Mass/Vol] 96 mg/dL Normal 74-106 [facility] Comment on above: Performed By: #### L 501.2450, L500.4050, L100.0100, L700.6800 ####[facility] [address] [place], [address] Potassium [Moles/Vol] 3.8 mmol/L Normal 3.5-5.1 [facility] Comment on above: Performed By: #### L 501.2450, L500.4050, L100.0100, L700.6800 ####[facility] [address] [place], [address] Sodium [Moles/Vol] 139 mmol/L Normal 136-145 [facility] Comment on above: Performed By: #### L 501.2450, L500.4050, L100.0100, L700.6800 ####[facility] [address] [place], [address] T PROT 6.8 g/dL Normal 6.4-8.2 [facility] Comment on above: Performed By: #### L 501.2450, L500.4050, L100.0100, L700.6800 ####[facility] [address] [place], [address] Urea nitrogen [Mass/Vol] 13 mg/dL Normal 7-18 [facility] Comment on above: Performed By: #### L 501.2450, L500.4050, L100.0100, L700.6800 ####[facility] [address] [place], [address] Emergency Department Summary on 06-07-2024 Emergency Department Summary Normal [facility] Lipaseon 06-07-2024 Lipase [Catalytic activity/Vol] 34 U/L Normal 13-75 [facility] Comment on above: Result Comment: Maude peres note:LIPASE revised reference range effective 22.New Lipase methodology. Expected to produce lower valuesthan the previous assay method.NEW Reference Range: 13 - 75 U/L Performed By: #### L 501.2450, L500.4050, L100.0100, L700.6800 ####[facility] [address] [place], [address] ,Serum,hCG Quali.on 06-07-2024 HCG, SERUM QUAL Negative Normal [facility] Comment on above: Performed By: #### L 501.2450, L500.4050, L100.0100, L700.6800 ####[facility] [address] [place], [address] Urinalysis, Completeon 06-07 EPI,SQUAMOUS 0-5 SEEN Normal 5-10 [facility] Comment on above: Order Comment: COLLE CTOR TO SPECIFY Performed By: #### L 400.0001 ####[facility] [address] [place], [address] BACTERIA 0 SEEN Normal None Seen [facility] Comment on above: Order Comment: COLLE CTOR TO SPECIFY Performed By: #### L 400.0001 ####[facility] [address] [place], [address] Mucus Ql (Urine sed) 0 SEEN Normal [facility] Comment on above: Order Comment: COLLE CTOR TO SPECIFY Performed By: #### L 400.0001 ####[facility] [address] [place], [address] RBC 0 SEEN Normal 0-5 [facility] Comment on above: Order Comment: COLLE CTOR TO SPECIFY Performed By: #### L 400.0001 ####[facility] [address] [place], [address] WBC 0 SEEN Normal 0-5 [facility] Comment on above: Order Comment: CLARISA CTOR TO SPECIFY Performed By: #### L 400.0001 ####[facility] [address] [place], [place], [address] LISSETTE Comprehensive Panelon LISSETTE TABLE Comment Normal . [facility] Comment on above: Result Comment: Auto antibody Disease Association -------- Condition Frequency ---------Antinuclear Antibody, SLE, mixed connectiveDirect (LISSETTE-D) tissue diseases ---------dsDNA SLE 40 - 60% ---------Chromatin Drug induced SLE 90% SLE 48 - 97% ---------SSA (Ro) SLE 25 - 35% Sjogren's Syndrome 40 - 70% Lupus 100% ---------SSB (La) SLE 10% Sjogren's Syndrome 30% ---------Sm (anti-Valdovinos) SLE 15 - 30% ---------FIELD ASSISTANT Mixed Connective Tissue Disease 95%(U1 nRNP, SLE 30 - 50%anti-ribonucleoprotein) Polymyositis and/or Dermatomyositis 20% ---------Scl-70 (antiDNA Scleroderma (diffuse) 20 - 35%topoisomerase) Crest 13% ---------Kathryn-1 Polymyositis and/or Dermatomyositis 20 - 40% ---------Centromere B Scleroderma - Crest variant 80% Performed By: #### L 5500.0550, L3100.3425, L2100.0000, L501.6710, L506.0400, L3410.2400, L3300.1200, L3100.5440, L504.2610, L501.9520, L500.4050, L101.9900, L501.31411, L100.0100, L3200.1100 ####[facility] [address] [place], [place], [id number] ANTI-CENT B AB <0.2 Normal 0.0-0.9 [facility] Comment on above: Performed By: #### L 5500.0550, L3100.3425, L2100.0000, L501.6710, L506.0400, L3410.2400, L3300.1200, L3100.5440, L504.2610, L501.9520, L500.4050, L101.9900, L501.09386, L100.0100, L3200.1100 ####[facility] [address] [place], [place], [id number] ANTI-DNA (DS)AB 1 IU/mL Normal 0-9 [facility] Comment on above: Result Comment: Nega tive <5 Equivocal 5 - 9 Positive >9 Performed By: #### L 5500.0550, L3100.3425, L2100.0000, L501.6710, L506.0400, L3410.2400, L3300.1200, L3100.5440, L504.2610, L501.9520, L500.4050, L101.9900, L501.65591, L100.0100, L3200.1100 ####[facility] [address] [place], [place], [id number] ANTI-KATHRYN-1 <0.2 Normal 0.0-0.9 [facility] Comment on above: Performed By: #### L 5500.0550, L3100.3425, L2100.0000, L501.6710, L506.0400, L3410.2400, L3300.1200, L3100.5440, L504.2610, L501.9520, L500.4050, L101.9900, L501.54544, L100.0100, L3200.1100 ####[facility] [address] [place], [place], [phone] ANTI-SS-A < 0.2 Normal 0.0-0.9 [facility] Comment on above: Performed By: #### L 5500.0550, L3100.3425, L2100.0000, L501.6710, L506.0400, L3410.2400, L3300.1200, L3100.5440, L504.2610, L501.9520, L500.4050, L101.9900, L501.95288, L100.0100, L3200.1100 ####[facility] [address] [place], [place], [phone] ANTI-SS-B < 0.2 Normal 0.0-0.9 [facility] Comment on above: Performed By: #### L 5500.0550, L3100.3425, L2100.0000, L501.6710, L506.0400, L3410.2400, L3300.1200, L3100.5440, L504.2610, L501.9520, L500.4050, L101.9900, L501.65286, L100.0100, L3200.1100 ####[facility] [address] [place], [place], [address] ANTICHROMATIN <0.2 Normal 0.0-0.9 [facility] Comment on above: Performed By: #### L 5500.0550, L3100.3425, L2100.0000, L501.6710, L506.0400, L3410.2400, L3300.1200, L3100.5440, L504.2610, L501.9520, L500.4050, L101.9900, L501.39253, L100.0100, L3200.1100 ####[facility] [address] [place], [place], [id number] ANTISCLERODERM <0.2 Normal 0.0-0.9 [facility] Comment on above: Performed By: #### L 5500.0550, L3100.3425, L2100.0000, L501.6710, L506.0400, L3410.2400, L3300.1200, L3100.5440, L504.2610, L501.9520, L500.4050, L101.9900, L501.35783, L100.0100, L3200.1100 ####[facility] [address] [place], [address] FIELD ASSISTANT Ab 0.2 AI Normal 0.0-0.9 [facility] Comment on above: Performed By: #### L 5500.0550, L3100.3425, L2100.0000, L501.6710, L506.0400, L3410.2400, L3300.1200, L3100.5440, L504.2610, L501.9520, L500.4050, L101.9900, L501.13511, L100.0100, L3200.1100 ####[facility] [address] [place], [address] VALDOVINOS Ab <0.2 Normal 0.0-0.9 [facility] Comment on above: Performed By: #### L 5500.0550, L3100.3425, L2100.0000, L501.6710, L506.0400, L3410.2400, L3300.1200, L3100.5440, L504.2610, L501.9520, L500.4050, L101.9900, L501.01710, L100.0100, L3200.1100 ####[facility] [address] [place], [place], [phone] ANCAon 06-05-2024 Atypical pANCA <1:20 Normal Neg:<1:20 [facility] Comment on above: Order Comment: N Result Comment: The atypical pANCA pattern has been observed in asignificant percentage of patients with ulcerative colitis,primary sclerosing cholangitis and autoimmune hepatitis.Performed at: - [facility] [id number] [place], [place] [id number] Director: Madhu Cunningham PhD, Phone: [phone] at: - [facility] [id number] Director: Zaire Luna MD, Phone: [phone] Performed By: #### L 5500.0550, L3100.3425, L2100.0000, L501.6710, L506.0400, L3410.2400, L3300.1200, L3100.5440, L504.2610, L501.9520, L500.4050, L101.9900, L501.01252, L100.0100, L3200.1100 ####[facility] [address] [place], [place], [phone] Cytoplasmic Ab <1:20 Normal Neg:<1:20 [facility] Comment on above: Order Comment: N Performed By: #### L 5500.0550, L3100.3425, L2100.0000, L501.6710, L506.0400, L3410.2400, L3300.1200, L3100.5440, L504.2610, L501.9520, L500.4050, L101.9900, L501.69829, L100.0100, L3200.1100 ####[facility] [address] [place], [place], [phone] Perinuclear Ab. <1:20 Normal Neg:<1:20 [facility] Comment on above: Order Comment: N Result Comment: The presence of positive fluorescence exhibiting P-ANCA orC-ANCA patterns alone is not specific for the diagnosis ofWegener's Granulomatosis (WG) or microscopic polyangiitis.Decisions about treatment should not be based solely onANCA IFA results. The International ANCA Group Consensusrecommends follow up testing of positive sera with both NJ-3 and MPO-ANCA enzyme immunoassays. As many as 5% serumsamples are positive only by EIA. Ref. AM J Clin Hczgzk8896;111:507-513. Performed By: #### L 5500.0550, L3100.3425, L2100.0000, L501.6710, L506.0400, L3410.2400, L3300.1200, L3100.5440, L504.2610, L501.9520, L500.4050, L101.9900, L501.75595, L100.0100, L3200.1100 ####[facility] [address] [place], [address] Celiac Disease Profileon ENDOMYSIAL IGA Negative Normal Negative [facility] Comment on above: Order Comment: N Performed By: #### L 5500.0550, L3100.3425, L2100.0000, L501.6710, L506.0400, L3410.2400, L3300.1200, L3100.5440, L504.2610, L501.9520, L500.4050, L101.9900, L501.75888, L100.0100, L3200.1100 ####[facility] [address] [place], [address] tTG IGA <2 Normal 0-3 [facility] Comment on above: Order Comment: N Result Comment: Nega tive 0 - 3 Weak Positive 4 - 10 Positive >10 Tissue Transglutaminase (tTG) has been identified as the endomysial antigen. Studies have demonstr- ated that endomysial IgA antibodies have over 99% specificity for gluten sensitive enteropathy. Performed By: #### L 5500.0550, L3100.3425, L2100.0000, L501.6710, L506.0400, L3410.2400, L3300.1200, L3100.5440, L504.2610, L501.9520, L500.4050, L101.9900, L501.54800, L100.0100, L3200.1100 ####[facility] [address] [place], [place], [phone] KRISTOPHER + Protein Elect, Serumon 06-05-2024 Albumin [Mass/Vol] 4.0 g/dL Normal 2.9-4.4 [facility] Comment on above: Order Comment: N Performed By: #### L 5500.0550, L3100.3425, L2100.0000, L501.6710, L506.0400, L3410.2400, L3300.1200, L3100.5440, L504.2610, L501.9520, L500.4050, L101.9900, L501.45916, L100.0100, L3200.1100 ####[facility] [address] [place], [place], [phone] Albumin/Globulin [Mass ratio] 1.3 {ratio} Normal 0.7-1.7 [facility] Comment on above: Order Comment: N Performed By: #### L 5500.0550, L3100.3425, L2100.0000, L501.6710, L506.0400, L3410.2400, L3300.1200, L3100.5440, L504.2610, L501.9520, L500.4050, L101.9900, L501.02316, L100.0100, L3200.1100 ####[facility] [address] [place], [place], [phone] FGTZK-9-PJDQ 0.4 g/dL Normal 0.0-0.4 [facility] Comment on above: Order Comment: N Performed By: #### L 5500.0550, L3100.3425, L2100.0000, L501.6710, L506.0400, L3410.2400, L3300.1200, L3100.5440, L504.2610, L501.9520, L500.4050, L101.9900, L501.74168, L100.0100, L3200.1100 ####[facility] [address] [place], [place], [phone](123) UTGCX-1-MJKL 1.0 g/dL Normal 0.4-1.0 [facility] Comment on above: Order Comment: N Performed By: #### L 5500.0550, L3100.3425, L2100.0000, L501.6710, L506.0400, L3410.2400, L3300.1200, L3100.5440, L504.2610, L501.9520, L500.4050, L101.9900, L501.99042, L100.0100, L3200.1100 ####[facility] [address] [place], [place], [phone](877) BETA GLOBULIN 1.2 g/dL Normal 0.7-1.3 [facility] Comment on above: Order Comment: N Performed By: #### L 5500.0550, L3100.3425, L2100.0000, L501.6710, L506.0400, L3410.2400, L3300.1200, L3100.5440, L504.2610, L501.9520, L500.4050, L101.9900, L501.82010, L100.0100, L3200.1100 ####[facility] [address] [place], [place], [phone](811) GAMMA GLOBULIN 0.7 g/dL Normal 0.4-1.8 [facility] Comment on above: Order Comment: N Performed By: #### L 5500.0550, L3100.3425, L2100.0000, L501.6710, L506.0400, L3410.2400, L3300.1200, L3100.5440, L504.2610, L501.9520, L500.4050, L101.9900, L501.92309, L100.0100, L3200.1100 ####[facility] [address] [place], [address] Globulin (S) [Mass/Vol] 3.2 g/dL Normal 2.2-3.9 [facility] Comment on above: Order Comment: N Performed By: #### L 5500.0550, L3100.3425, L2100.0000, L501.6710, L506.0400, L3410.2400, L3300.1200, L3100.5440, L504.2610, L501.9520, L500.4050, L101.9900, L501.61269, L100.0100, L3200.1100 ####[facility] [address] [place], [address] KRISTOPHER RESULT,S Comment Normal . [facility] Comment on above: Order Comment: N Result Comment: No m onoclonality detected. Performed By: #### L 5500.0550, L3100.3425, L2100.0000, L501.6710, L506.0400, L3410.2400, L3300.1200, L3100.5440, L504.2610, L501.9520, L500.4050, L101.9900, L501.40930, L100.0100, L3200.1100 ####[facility] [address] [place], [address] IMMUNOGLOB A QN 154 mg/dL Normal 87-352 [facility] Comment on above: Order Comment: N Performed By: #### L 5500.0550, L3100.3425, L2100.0000, L501.6710, L506.0400, L3410.2400, L3300.1200, L3100.5440, L504.2610, L501.9520, L500.4050, L101.9900, L501.76408, L100.0100, L3200.1100 ####[facility] [address] [place], [address] IMMUNOGLOB G QN 657 mg/dL Normal 586-1602 [facility] Comment on above: Order Comment: N Performed By: #### L 5500.0550, L3100.3425, L2100.0000, L501.6710, L506.0400, L3410.2400, L3300.1200, L3100.5440, L504.2610, L501.9520, L500.4050, L101.9900, L501.47017, L100.0100, L3200.1100 ####[facility] [address] [place], [place], [phone] IMMUNOGLOB M QN 112 mg/dL Normal 26-217 [facility] Comment on above: Order Comment: N Performed By: #### L 5500.0550, L3100.3425, L2100.0000, L501.6710, L506.0400, L3410.2400, L3300.1200, L3100.5440, L504.2610, L501.9520, L500.4050, L101.9900, L501.21416, L100.0100, L3200.1100 ####[facility] [address] [place], [address] M-Candido Not Observed Normal Not Observed [facility] Comment on above: Order Comment: N Performed By: #### L 5500.0550, L3100.3425, L2100.0000, L501.6710, L506.0400, L3410.2400, L3300.1200, L3100.5440, L504.2610, L501.9520, L500.4050, L101.9900, L501.02180, L100.0100, L3200.1100 ####[facility] [address] [place], [place], [phone] NOTE: Comment Normal . [facility] Comment on above: Order Comment: N Result Comment: Prot ein electrophoresis scan will follow via computer,mail, or yeast supervisor delivery. Performed By: #### L 5500.0550, L3100.3425, L2100.0000, L501.6710, L506.0400, L3410.2400, L3300.1200, L3100.5440, L504.2610, L501.9520, L500.4050, L101.9900, L501.49072, L100.0100, L3200.1100 ####[facility] [address] [place], [place], [phone]) Protein [Mass/Vol] 7.2 g/dL Normal 6.0-8.5 [facility] Comment on above: Order Comment: N Performed By: #### L 5500.0550, L3100.3425, L2100.0000, L501.6710, L506.0400, L3410.2400, L3300.1200, L3100.5440, L504.2610, L501.9520, L500.4050, L101.9900, L501.58753, L100.0100, L3200.1100 ####[facility] [address] [place], [place], [phone](596) Immunoglobulins G/A/M/León IMMUNOGLOB E QN 11 IU/mL Normal 6-495 [facility] Comment on above: Order Comment: N Performed By: #### L 5500.0550, L3100.3425, L2100.0000, L501.6710, L506.0400, L3410.2400, L3300.1200, L3100.5440, L504.2610, L501.9520, L500.4050, L101.9900, L501.89514, L100.0100, L3200.1100 ####[facility] [address] [place], [address] L2100.0000on 06-05-2024 ACCA 9 units Normal 0-90 [facility] Comment on above: Order Comment: N Result Comment: Nega tive: <80 Equivocal: 80-90 Positive: >90 Performed By: #### L 5500.0550, L3100.3425, L2100.0000, L501.6710, L506.0400, L3410.2400, L3300.1200, L3100.5440, L504.2610, L501.9520, L500.4050, L101.9900, L501.88669, L100.0100, L3200.1100 ####[facility] [address] [place], [place], [phone] ALCA 8 units Normal 0-60 [facility] Comment on above: Order Comment: N Result Comment: Nega tive:<55 Equivocal: 55-60 Positive: >60 Performed By: #### L 5500.0550, L3100.3425, L2100.0000, L501.6710, L506.0400, L3410.2400, L3300.1200, L3100.5440, L504.2610, L501.9520, L500.4050, L101.9900, L501.13103, L100.0100, L3200.1100 ####[facility] [address] [place], [address] AMCA 15 units Normal 0-100 [facility] Comment on above: Order Comment: N Result Comment: Nega tive: <90 Equivocal: 90-100 Positive: >100 This test was developed and its performance characteristics determined by [employer]. It has not been cleared or approved by the Food and Drug Administration. The FDA has determined that such clearance or approval is not necessary. Performed By: #### L 5500.0550, L3100.3425, L2100.0000, L501.6710, L506.0400, L3410.2400, L3300.1200, L3100.5440, L504.2610, L501.9520, L500.4050, L101.9900, L501.44121, L100.0100, L3200.1100 ####[facility] [address] [place], [address] Atypical pANCA Negative Normal Negative [facility] Comment on above: Order Comment: N Performed By: #### L 5500.0550, L3100.3425, L2100.0000, L501.6710, L506.0400, L3410.2400, L3300.1200, L3100.5440, L504.2610, L501.9520, L500.4050, L101.9900, L501.49590, L100.0100, L3200.1100 ####[facility] [address] [place], [place], [phone] COMMENT Comment Normal . [facility] Comment on above: Order Comment: N Result Comment: Jasmine simran is not suggestive of Inflammatory Bowel Disease Performed By: #### L 5500.0550, L3100.3425, L2100.0000, L501.6710, L506.0400, L3410.2400, L3300.1200, L3100.5440, L504.2610, L501.9520, L500.4050, L101.9900, L501.54881, L100.0100, L3200.1100 ####[facility] [address] [place], [place], [phone] Shaq 4 units Normal 0-50 [facility] Comment on above: Order Comment: N Result Comment: Nega tive: <45 Equivocal: 45-50 Positive: >50 Performed By: #### L 5500.0550, L3100.3425, L2100.0000, L501.6710, L506.0400, L3410.2400, L3300.1200, L3100.5440, L504.2610, L501.9520, L500.4050, L101.9900, L501.69909, L100.0100, L3200.1100 ####[facility] [address] [place], [place], [id number] L5500.0550on 06-05-2024 BEEF <0.10 Normal Class 0 [facility] Comment on above: Performed By: #### L 5500.0550, L3100.3425, L2100.0000, L501.6710, L506.0400, L3410.2400, L3300.1200, L3100.5440, L504.2610, L501.9520, L500.4050, L101.9900, L501.24414, L100.0100, L3200.1100 ####[facility] [address] [place], [place], [phone] CHOCOLATE <0.10 Normal Class 0 [facility] Comment on above: Performed By: #### L 5500.0550, L3100.3425, L2100.0000, L501.6710, L506.0400, L3410.2400, L3300.1200, L3100.5440, L504.2610, L501.9520, L500.4050, L101.9900, L501.36235, L100.0100, L3200.1100 ####[facility] [address] [place], [place], [address] CODFISH <0.10 Normal Class 0 [facility] Comment on above: Performed By: #### L 5500.0550, L3100.3425, L2100.0000, L501.6710, L506.0400, L3410.2400, L3300.1200, L3100.5440, L504.2610, L501.9520, L500.4050, L101.9900, L501.33344, L100.0100, L3200.1100 ####[facility] [address] [place], [place], [address] COMMENT Comment Normal . [facility] Comment on above: Result Comment: Peter orona of Specific IgE Class Description of Class ----- < 0.10 0 Negative 0.10 - 0.31 0/I Equivocal/Low 0.32 - 0.55 I Low 0.56 - 1.40 II Moderate 1.41 - 3.90 III High 3.91 - 19.00 IV Very High 19.01 - 100.00 V Very High >100.00 Very High Performed By: #### L 5500.0550, L3100.3425, L2100.0000, L501.6710, L506.0400, L3410.2400, L3300.1200, L3100.5440, L504.2610, L501.9520, L500.4050, L101.9900, L501.60482, L100.0100, L3200.1100 ####[facility] [address] [place], [address] CORN <0.10 Normal Class 0 [facility] Comment on above: Performed By: #### L 5500.0550, L3100.3425, L2100.0000, L501.6710, L506.0400, L3410.2400, L3300.1200, L3100.5440, L504.2610, L501.9520, L500.4050, L101.9900, L501.13443, L100.0100, L3200.1100 ####[facility] [address] [facility] [place], [address] EGG, WHOLE <0.10 Normal Class 0 [facility] Comment on above: Result Comment: Perf ormed at: [facility] [address] [id number] Director: Madhu Cunningham PhD, Phone: [phone] at: [facility] [address] [id number] Director: Zaire Luna MD, Phone: [phone] Performed By: #### L 5500.0550, L3100.3425, L2100.0000, L501.6710, L506.0400, L3410.2400, L3300.1200, L3100.5440, L504.2610, L501.9520, L500.4050, L101.9900, L501.59804, L100.0100, L3200.1100 ####[facility] [address] [place], [address] MILK (COW) <0.10 Normal Class 0 [facility] Comment on above: Performed By: #### L 5500.0550, L3100.3425, L2100.0000, L501.6710, L506.0400, L3410.2400, L3300.1200, L3100.5440, L504.2610, L501.9520, L500.4050, L101.9900, L501.50639, L100.0100, L3200.1100 ####[facility] [address] [place], [address] MUSSELS <0.10 Normal Class 0 [facility] Comment on above: Performed By: #### L 5500.0550, L3100.3425, L2100.0000, L501.6710, L506.0400, L3410.2400, L3300.1200, L3100.5440, L504.2610, L501.9520, L500.4050, L101.9900, L501.49705, L100.0100, L3200.1100 ####[facility] [address] [place], [place], [phone] PEANUT <0.10 Normal Class 0 [facility] Comment on above: Performed By: #### L 5500.0550, L3100.3425, L2100.0000, L501.6710, L506.0400, L3410.2400, L3300.1200, L3100.5440, L504.2610, L501.9520, L500.4050, L101.9900, L501.96340, L100.0100, L3200.1100 ####[facility] [address] [place], [address] PORK <0.10 Normal Class 0 [facility] Comment on above: Performed By: #### L 5500.0550, L3100.3425, L2100.0000, L501.6710, L506.0400, L3410.2400, L3300.1200, L3100.5440, L504.2610, L501.9520, L500.4050, L101.9900, L501.99014, L100.0100, L3200.1100 ####[facility] [address] [place], [place], [phone] SALMON <0.10 Normal Class 0 [facility] Comment on above: Performed By: #### L 5500.0550, L3100.3425, L2100.0000, L501.6710, L506.0400, L3410.2400, L3300.1200, L3100.5440, L504.2610, L501.9520, L500.4050, L101.9900, L501.03164, L100.0100, L3200.1100 ####[facility] [address] [facility] [place], [place], [id number] SHRIMP <0.10 Normal Class 0 [facility] Comment on above: Performed By: #### L 5500.0550, L3100.3425, L2100.0000, L501.6710, L506.0400, L3410.2400, L3300.1200, L3100.5440, L504.2610, L501.9520, L500.4050, L101.9900, L501.44161, L100.0100, L3200.1100 ####[facility] [address] [place], [place], [id number] SOYBEAN <0.10 Normal Class 0 [facility] Comment on above: Performed By: #### L 5500.0550, L3100.3425, L2100.0000, L501.6710, L506.0400, L3410.2400, L3300.1200, L3100.5440, L504.2610, L501.9520, L500.4050, L101.9900, L501.38739, L100.0100, L3200.1100 ####[facility] [address] [place], [place], [id number] TUNA <0.10 Normal Class 0 [facility] Comment on above: Performed By: #### L 5500.0550, L3100.3425, L2100.0000, L501.6710, L506.0400, L3410.2400, L3300.1200, L3100.5440, L504.2610, L501.9520, L500.4050, L101.9900, L501.87337, L100.0100, L3200.1100 ####[facility] [address] [place], [place], [address] WHEAT <0.10 Normal Class 0 [facility] Comment on above: Performed By: #### L 5500.0550, L3100.3425, L2100.0000, L501.6710, L506.0400, L3410.2400, L3300.1200, L3100.5440, L504.2610, L501.9520, L500.4050, L101.9900, L501.30046, L100.0100, L3200.1100 ####[facility] [address] [place], [place], [id number] CBC W/Diff, Automatedon 10-0 Absolute Lymph 3.60 X10 3/uL Normal 0.83-4.51 [facility] Comment on above: Performed By: #### L 5500.0550, L3100.3425, L2100.0000, L501.6710, L506.0400, L3410.2400, L3300.1200, L3100.5440, L504.2610, L501.9520, L500.4050, L101.9900, L501.44689, L100.0100, L3200.1100 ####[facility] [address] [place], [address] Absolute Neut 6.8 X10 3/uL Normal 2.0-7.7 [facility] Comment on above: Performed By: #### L 5500.0550, L3100.3425, L2100.0000, L501.6710, L506.0400, L3410.2400, L3300.1200, L3100.5440, L504.2610, L501.9520, L500.4050, L101.9900, L501.19720, L100.0100, L3200.1100 ####[facility] [address] [place], [address] Basophils/100 WBC (Bld) 0.8 % Normal 0-1 [facility] Comment on above: Performed By: #### L 5500.0550, L3100.3425, L2100.0000, L501.6710, L506.0400, L3410.2400, L3300.1200, L3100.5440, L504.2610, L501.9520, L500.4050, L101.9900, L501.51603, L100.0100, L3200.1100 ####[facility] [address] [facility] [place], [address] Eosinophils/100 WBC (Bld) 1.6 % Normal 0-5 [facility] Comment on above: Performed By: #### L 5500.0550, L3100.3425, L2100.0000, L501.6710, L506.0400, L3410.2400, L3300.1200, L3100.5440, L504.2610, L501.9520, L500.4050, L101.9900, L501.80841, L100.0100, L3200.1100 ####[facility] [address] [facility] [place], [address] Erythrocyte distribution width (RBC) [Ratio] 14.0 % Normal 11.6-14.6 [facility] Comment on above: Performed By: #### L 5500.0550, L3100.3425, L2100.0000, L501.6710, L506.0400, L3410.2400, L3300.1200, L3100.5440, L504.2610, L501.9520, L500.4050, L101.9900, L501.49425, L100.0100, L3200.1100 ####[facility] [address] [facility] [place], [place], [id number] Hematocrit (Bld) [Volume fraction] 41.7 % Normal 37-47 [facility] Comment on above: Performed By: #### L 5500.0550, L3100.3425, L2100.0000, L501.6710, L506.0400, L3410.2400, L3300.1200, L3100.5440, L504.2610, L501.9520, L500.4050, L101.9900, L501.58194, L100.0100, L3200.1100 ####[facility] [address] [place], [address] Hemoglobin (Bld) [Mass/Vol] 13.7 g/dL Normal 12.0-15.0 [facility] Comment on above: Performed By: #### L 5500.0550, L3100.3425, L2100.0000, L501.6710, L506.0400, L3410.2400, L3300.1200, L3100.5440, L504.2610, L501.9520, L500.4050, L101.9900, L501.11431, L100.0100, L3200.1100 ####[facility] [address] [facility] [place], [address] IG% 0.400 Normal 0.0-0.9 [facility] Comment on above: Result Comment: IG% - Immature Granulocytes (promyelocytes, myelocytes andmetamyelocytes) > 1% indicates that a LEFT SHIFT is Present. Performed By: #### L 5500.0550, L3100.3425, L2100.0000, L501.6710, L506.0400, L3410.2400, L3300.1200, L3100.5440, L504.2610, L501.9520, L500.4050, L101.9900, L501.85144, L100.0100, L3200.1100 ####[facility] [address] [place], [address] Lymphocytes/100 WBC (Bld) 32.0 % Normal 19-41 [facility] Comment on above: Performed By: #### L 5500.0550, L3100.3425, L2100.0000, L501.6710, L506.0400, L3410.2400, L3300.1200, L3100.5440, L504.2610, L501.9520, L500.4050, L101.9900, L501.15896, L100.0100, L3200.1100 ####[facility] [address] [facility] [place], [address] MCH (RBC) [Entitic mass] 28.7 pg Normal 27.0-32.0 [facility] Comment on above: Performed By: #### L 5500.0550, L3100.3425, L2100.0000, L501.6710, L506.0400, L3410.2400, L3300.1200, L3100.5440, L504.2610, L501.9520, L500.4050, L101.9900, L501.88517, L100.0100, L3200.1100 ####[facility] [address] [place], [place], [id number]) MCHC (RBC) [Mass/Vol] 32.9 g/dL Normal 32-36 [facility] Comment on above: Performed By: #### L 5500.0550, L3100.3425, L2100.0000, L501.6710, L506.0400, L3410.2400, L3300.1200, L3100.5440, L504.2610, L501.9520, L500.4050, L101.9900, L501.56750, L100.0100, L3200.1100 ####[facility] [address] [place], [address] MCV (RBC) [Entitic vol] 87.2 fL Normal 81-99 [facility] Comment on above: Performed By: #### L 5500.0550, L3100.3425, L2100.0000, L501.6710, L506.0400, L3410.2400, L3300.1200, L3100.5440, L504.2610, L501.9520, L500.4050, L101.9900, L501.08953, L100.0100, L3200.1100 ####[facility] [address] [place], [address] Monocytes/100 WBC (Bld) 5.2 % Normal 0-10 [facility] Comment on above: Performed By: #### L 5500.0550, L3100.3425, L2100.0000, L501.6710, L506.0400, L3410.2400, L3300.1200, L3100.5440, L504.2610, L501.9520, L500.4050, L101.9900, L501.70598, L100.0100, L3200.1100 ####[facility] [address] [place], [address] Neutrophils/100 WBC (Bld) 60.0 % Normal 47-70 [facility] Comment on above: Performed By: #### L 5500.0550, L3100.3425, L2100.0000, L501.6710, L506.0400, L3410.2400, L3300.1200, L3100.5440, L504.2610, L501.9520, L500.4050, L101.9900, L501.57022, L100.0100, L3200.1100 ####[facility] [address] [place], [address] Nucleated RBC (Bld) [#/Vol] 0 10*3/uL Normal 0-5 [facility] Comment on above: Performed By: #### L 5500.0550, L3100.3425, L2100.0000, L501.6710, L506.0400, L3410.2400, L3300.1200, L3100.5440, L504.2610, L501.9520, L500.4050, L101.9900, L501.48450, L100.0100, L3200.1100 ####[facility] [address] [place], [address] Platelet mean volume (Bld) [Entitic vol] 10.4 fL Normal 6.2-12.0 [facility] Comment on above: Performed By: #### L 5500.0550, L3100.3425, L2100.0000, L501.6710, L506.0400, L3410.2400, L3300.1200, L3100.5440, L504.2610, L501.9520, L500.4050, L101.9900, L501.56370, L100.0100, L3200.1100 ####[facility] [address] [place], [address] Platelets (Bld) [#/Vol] 439 10*3/uL Normal 150-450 [facility] Comment on above: Performed By: #### L 5500.0550, L3100.3425, L2100.0000, L501.6710, L506.0400, L3410.2400, L3300.1200, L3100.5440, L504.2610, L501.9520, L500.4050, L101.9900, L501.60669, L100.0100, L3200.1100 ####[facility] [address] [place], [address] RBC (Bld) [#/Vol] 4.78 10*6/uL Normal 4.2-5.4 [facility] Comment on above: Performed By: #### L 5500.0550, L3100.3425, L2100.0000, L501.6710, L506.0400, L3410.2400, L3300.1200, L3100.5440, L504.2610, L501.9520, L500.4050, L101.9900, L501.83789, L100.0100, L3200.1100 ####[facility] [address] [place], [place], [phone] RDW SD 45.0 fl High 35.1-43.9 [facility] Comment on above: Performed By: #### L 5500.0550, L3100.3425, L2100.0000, L501.6710, L506.0400, L3410.2400, L3300.1200, L3100.5440, L504.2610, L501.9520, L500.4050, L101.9900, L501.67133, L100.0100, L3200.1100 ####[facility] [address] [place], [place], [phone] WBC (Bld) [#/Vol] 11.3 10*3/uL High 4.4-11.0 [facility] Comment on above: Performed By: #### L 5500.0550, L3100.3425, L2100.0000, L501.6710, L506.0400, L3410.2400, L3300.1200, L3100.5440, L504.2610, L501.9520, L500.4050, L101.9900, L501.12698, L100.0100, L3200.1100 ####[facility] [address] [place], [place], [phone] CRPon 06-02-2024 C-REACTIVE PROT 5.30 mg/L High 0.0-3.0 [facility] Comment on above: Order Comment: 1 Result Comment: C-Re active Protein (CRP) provides useful information for thediagnosis, therapy and monitoring of inflammatory processesand associated diseases. For the evaluation of Relative Riskfor Cardiovascular Disease, a High Sensitivity CRP (HSCRP)should be ordered. Performed By: #### L 5500.0550, L3100.3425, L2100.0000, L501.6710, L506.0400, L3410.2400, L3300.1200, L3100.5440, L504.2610, L501.9520, L500.4050, L101.9900, L501.47867, L100.0100, L3200.1100 ####[facility] [address] [place], [address] Comprehensive Metabolic [facility] 06-02-2024 Albumin [Mass/Vol] 4.2 g/dL Normal 3.2-5.0 [facility] Comment on above: Order Comment: 1 Performed By: #### L 5500.0550, L3100.3425, L2100.0000, L501.6710, L506.0400, L3410.2400, L3300.1200, L3100.5440, L504.2610, L501.9520, L500.4050, L101.9900, L501.27646, L100.0100, L3200.1100 ####[facility] [address] [place], [place], [phone] Albumin/Globulin [Mass ratio] 1.2 {ratio} Normal 0.9-2.4 [facility] Comment on above: Order Comment: 1 Performed By: #### L 5500.0550, L3100.3425, L2100.0000, L501.6710, L506.0400, L3410.2400, L3300.1200, L3100.5440, L504.2610, L501.9520, L500.4050, L101.9900, L501.76105, L100.0100, L3200.1100 ####[facility] [address] [place], [place], [phone] ALK P 72 U/L Normal 45-117 [facility] Comment on above: Order Comment: 1 Performed By: #### L 5500.0550, L3100.3425, L2100.0000, L501.6710, L506.0400, L3410.2400, L3300.1200, L3100.5440, L504.2610, L501.9520, L500.4050, L101.9900, L501.45858, L100.0100, L3200.1100 ####[facility] [address] [place], [place], [phone] ALT [Catalytic activity/Vol] 21 U/L Normal 13-56 [facility] Comment on above: Order Comment: 1 Performed By: #### L 5500.0550, L3100.3425, L2100.0000, L501.6710, L506.0400, L3410.2400, L3300.1200, L3100.5440, L504.2610, L501.9520, L500.4050, L101.9900, L501.59675, L100.0100, L3200.1100 ####[facility] [address] [place], [place], [phone] AST [Catalytic activity/Vol] 11 U/L Low 15-37 [facility] Comment on above: Order Comment: 1 Performed By: #### L 5500.0550, L3100.3425, L2100.0000, L501.6710, L506.0400, L3410.2400, L3300.1200, L3100.5440, L504.2610, L501.9520, L500.4050, L101.9900, L501.90586, L100.0100, L3200.1100 ####[facility] [address] [place], [place], [phone] Bilirubin [Mass/Vol] 0.40 mg/dL Normal 0.20-1.00 [facility] Comment on above: Order Comment: 1 Result Comment: For patients on eltrombopag therapy, use of Dimension [place] TBIL is not recommended. Performed By: #### L 5500.0550, L3100.3425, L2100.0000, L501.6710, L506.0400, L3410.2400, L3300.1200, L3100.5440, L504.2610, L501.9520, L500.4050, L101.9900, L501.98429, L100.0100, L3200.1100 ####[facility] [address] [place], [address] BUN/CRE 15.5 RATIO Normal 10-20 [facility] Comment on above: Order Comment: 1 Performed By: #### L 5500.0550, L3100.3425, L2100.0000, L501.6710, L506.0400, L3410.2400, L3300.1200, L3100.5440, L504.2610, L501.9520, L500.4050, L101.9900, L501.92190, L100.0100, L3200.1100 ####[facility] [address] [place], [address] CA,Total 9.6 mg/dL Normal 8.5-10.1 [facility] Comment on above: Order Comment: 1 Performed By: #### L 5500.0550, L3100.3425, L2100.0000, L501.6710, L506.0400, L3410.2400, L3300.1200, L3100.5440, L504.2610, L501.9520, L500.4050, L101.9900, L501.69012, L100.0100, L3200.1100 ####[facility] [address] [place], [address] Chloride [Moles/Vol] 111 mmol/L High 98-107 [facility] Comment on above: Order Comment: 1 Performed By: #### L 5500.0550, L3100.3425, L2100.0000, L501.6710, L506.0400, L3410.2400, L3300.1200, L3100.5440, L504.2610, L501.9520, L500.4050, L101.9900, L501.63689, L100.0100, L3200.1100 ####[facility] [address] [place], [address] CO2 [Moles/Vol] 22.0 mmol/L Normal 21.0-32.0 [facility] Comment on above: Order Comment: 1 Performed By: #### L 5500.0550, L3100.3425, L2100.0000, L501.6710, L506.0400, L3410.2400, L3300.1200, L3100.5440, L504.2610, L501.9520, L500.4050, L101.9900, L501.54208, L100.0100, L3200.1100 ####[facility] [address] [place], [place], [phone]) Creatinine [Mass/Vol] 0.58 mg/dL Normal 0.55-1.02 [facility] Comment on above: Order Comment: 1 Result Comment: The validity of the calculated GFR GFRAA in patients over70 years has not been determined. Clinical correlation isessential. Performed By: #### L 5500.0550, L3100.3425, L2100.0000, L501.6710, L506.0400, L3410.2400, L3300.1200, L3100.5440, L504.2610, L501.9520, L500.4050, L101.9900, L501.06819, L100.0100, L3200.1100 ####[facility] [address] [place], [address] EST GFR - AA 151 mL/min Normal >60 [facility] Comment on above: Order Comment: 1 Result Comment: Afri can [place] GFR Calc Performed By: #### L 5500.0550, L3100.3425, L2100.0000, L501.6710, L506.0400, L3410.2400, L3300.1200, L3100.5440, L504.2610, L501.9520, L500.4050, L101.9900, L501.51661, L100.0100, L3200.1100 ####[facility] [address] [place], [place], [phone]) GAP 6 Normal 5-15 [facility] Comment on above: Order Comment: 1 Performed By: #### L 5500.0550, L3100.3425, L2100.0000, L501.6710, L506.0400, L3410.2400, L3300.1200, L3100.5440, L504.2610, L501.9520, L500.4050, L101.9900, L501.58254, L100.0100, L3200.1100 ####[facility] [address] [place], [place], [phone] GFR/1.73 sq M.predicted among non-blacks MDRD (S/P/Bld) [Vol rate/Area] 125 mL/min/{1.73_m2} Normal >60 [facility] Comment on above: Order Comment: 1 Result Comment: Non- GFR Calc Performed By: #### L 5500.0550, L3100.3425, L2100.0000, L501.6710, L506.0400, L3410.2400, L3300.1200, L3100.5440, L504.2610, L501.9520, L500.4050, L101.9900, L501.60583, L100.0100, L3200.1100 ####[facility] [address] [place], [place], [phone] Globulin (S) [Mass/Vol] 3.6 g/dL Normal 2.2-4.2 [facility] Comment on above: Order Comment: 1 Performed By: #### L 5500.0550, L3100.3425, L2100.0000, L501.6710, L506.0400, L3410.2400, L3300.1200, L3100.5440, L504.2610, L501.9520, L500.4050, L101.9900, L501.73988, L100.0100, L3200.1100 ####[facility] [address] [place], [address] Glucose [Mass/Vol] 93 mg/dL Normal 74-106 [facility] Comment on above: Order Comment: 1 Performed By: #### L 5500.0550, L3100.3425, L2100.0000, L501.6710, L506.0400, L3410.2400, L3300.1200, L3100.5440, L504.2610, L501.9520, L500.4050, L101.9900, L501.45502, L100.0100, L3200.1100 ####[facility] [address] [place], [address] Potassium [Moles/Vol] 4.0 mmol/L Normal 3.5-5.1 [facility] Comment on above: Order Comment: 1 Performed By: #### L 5500.0550, L3100.3425, L2100.0000, L501.6710, L506.0400, L3410.2400, L3300.1200, L3100.5440, L504.2610, L501.9520, L500.4050, L101.9900, L501.13035, L100.0100, L3200.1100 ####[facility] [address] [place], [address] Sodium [Moles/Vol] 139 mmol/L Normal 136-145 [facility] Comment on above: Order Comment: 1 Performed By: #### L 5500.0550, L3100.3425, L2100.0000, L501.6710, L506.0400, L3410.2400, L3300.1200, L3100.5440, L504.2610, L501.9520, L500.4050, L101.9900, L501.66573, L100.0100, L3200.1100 ####[facility] [address] [place], [place], [phone] T PROT 7.8 g/dL Normal 6.4-8.2 [facility] Comment on above: Order Comment: 1 Performed By: #### L 5500.0550, L3100.3425, L2100.0000, L501.6710, L506.0400, L3410.2400, L3300.1200, L3100.5440, L504.2610, L501.9520, L500.4050, L101.9900, L501.63992, L100.0100, L3200.1100 ####[facility] [address] [place], [place], [phone] Urea nitrogen [Mass/Vol] 9 mg/dL Normal 7-18 [facility] Comment on above: Order Comment: 1 Performed By: #### L 5500.0550, L3100.3425, L2100.0000, L501.6710, L506.0400, L3410.2400, L3300.1200, L3100.5440, L504.2610, L501.9520, L500.4050, L101.9900, L501.87025, L100.0100, L3200.1100 ####[facility] [address] [place], [place], [phone] Erythrocyte Sed Rateon 06-02 SED RATE 19 mm/hr Normal 0-30 [facility] Comment on above: Performed By: #### L 5500.0550, L3100.3425, L2100.0000, L501.6710, L506.0400, L3410.2400, L3300.1200, L3100.5440, L504.2610, L501.9520, L500.4050, L101.9900, L501.20038, L100.0100, L3200.1100 ####[facility] [address] [place], [place], [phone] Free T3on 06-02-2024 Free T3 [Mass/Vol] 3.0 pg/mL Normal 2.18-3.98 [facility] Comment on above: Order Comment: 1 Performed By: #### L 5500.0550, L3100.3425, L2100.0000, L501.6710, L506.0400, L3410.2400, L3300.1200, L3100.5440, L504.2610, L501.9520, L500.4050, L101.9900, L501.38582, L100.0100, L3200.1100 ####[facility] [address] [place], [place], [phone] Gastroenterology Visit Repor ton 06-02-2024 Gastroenterology Visit Report Normal [facility] LDHon 06-02-2024 LDH 157 U/L Normal 84-246 [facility] Comment on above: Order Comment: 1 Performed By: #### L 5500.0550, L3100.3425, L2100.0000, L501.6710, L506.0400, L3410.2400, L3300.1200, L3100.5440, L504.2610, L501.9520, L500.4050, L101.9900, L501.35398, L100.0100, L3200.1100 ####[facility] [address] [place], [place], [phone] T4 Free Directon 06-02-2024 T4 FREE DIRECT 0.98 ng/dL Normal 0.76-1.46 [facility] Comment on above: Order Comment: 1 Performed By: #### L 5500.0550, L3100.3425, L2100.0000, L501.6710, L506.0400, L3410.2400, L3300.1200, L3100.5440, L504.2610, L501.9520, L500.4050, L101.9900, L501.56683, L100.0100, L3200.1100 ####[facility] [address] [place], [place], [address] Thyroid Stim Hormone (TSH)on 06-02-2024 TSH 2.040 uIU/mL Normal 0.358-3.740 [facility] Comment on above: Order Comment: 1 Performed By: #### L 5500.0550, L3100.3425, L2100.0000, L501.6710, L506.0400, L3410.2400, L3300.1200, L3100.5440, L504.2610, L501.9520, L500.4050, L101.9900, L501.23745, L100.0100, L3200.1100 ####[facility] [address] [place], [place], [address] CNOVon 01-23-2024 CNOV Office Visit (DERMST ) -------- ARMIN VIVAS ([id number]) 1985 F Date Time Provider Department 01/23/24 11:15 AM LAVON DEWITT During your visit today, we recorded the following information about you: Lavon Dewitt APRN.CNP 01/23/2024 11:37 AM Signed Department of Dermatology Lavon Dewitt APRN.CNP Last visit in Dermatology: 09/17/2023 Objective/Assessment/Damian n 1. Skin pain 2. Hidradenitis suppurativa Left Medial Thigh, Pubic, Right Medial Thigh One erythematous cystic nodule to the right inguinal fold with few scattered open comedones with subacute erythematous papules to the bilateral inguinal area and suprapubic region. -recommend ILK x1 lesion today: ILK 5mg/mL x 0.7mL over 1 inflamed cyst after cleansing with alcohol. Wound care instructions given, patient verbalized understanding. -pending labs, start 50mg spirolactone daily by mouth -continue cleansing with hibiclens daily when showering -continue twice daily application of clindamycin lotion to the affected areas -R/b/a for the medication(s) including possible side effects discussed and reviewed with patient. Related Procedures * Comp Metabolic Panel Related Medications Clindamycin Phosphate (CLEOCIN T) 1 % lotion Apply to affected areas twice daily chlorhexidine (HIBICLENS) 4 % external liquid Wash affected area one to two times daily triamcinolone acetonide 5 mg injection (KeNALog 10) spironolactone (ALDACTONE) 50 mg tablet Take 1 tablet by mouth once daily. Follow-up as noted below or as needed. Chief Complaint: Patient presents with: Hair/Scalp Problem Subjective and Objective HPI: Armin Vivas is a 38 year old female who presents for: Follow up hidradenitis suppurativa. Patient using clindamycin and Hibiclens. Notes mild improvement with this. Completed doxycycline 20mg twice daily and this was helpful, but has been off the medication for over 1 month. She notes a suspected hormonal flare associated with her flares on her skin. Over the past ~1 week, she notes a very painful lesion develop on the right inguinal fold. She states she has not seen any improvement Past medical history is reviewed. Medication list is reviewed. Physical Exam included: bilateral lower extremities and external genitalia Intake information obtained by Lupe Segura APRN. BASSEM I have seen and evaluated the patient and discussed the case with the PA/FEEDER ASSOCIATE trainee. I agree with the assessment and plan as documented in the PA/FEEDER ASSOCIATE's note. Lavon Dewitt APRN.BASSEM Allergies As of Date: 01/23/2024 Noted Allergy Reaction MORPHINE 06/19/2015 14 - Other: See Comments Comments: "Heart feels funny", has safely taken percocet, dilaudid NECTARINE 04/19/2022 14 - Other: See Comments Comments: Angioedema OTHER OMEGA-3S 06/09/2018 7 - Swelling Comments: ENOC FAULKNER (METOCLOPRAMIDE) 11/01/2021 14 - Other: See Comments Comments: Blurry vision Date Reviewed: 01/23/2024 Reviewed by: Lupe Magdaleno - Fully Assessed Reason for Visit: Hair/Scalp Problem [51] Primary Visit Diagnosis:Skin pain [R20.8] Other Visit Diagnosis:Hidradenitis suppurativa [L73.2] Order(s):[] triamcinolone acetonide 5 mg injection (KeNALog 10)Disp: Rfl: spironolactone (ALDACTONE) 50 mg tabletTake 1 tablet by mouth once daily.Disp: 90 tabletRfl: 0 COMPREHENSIVE METABOLIC PANEL [SQCMP] Order #: [id number] FUTURE Prescriptions as of 01/23/2024 - spironolactone (ALDACTONE) 50 mg tablet Take 1 tablet by mouth once daily. - diphenoxylate-atropine (LOMOTIL) 2.5-0.025 mg per tablet Take 1 tablet by mouth as needed. - Clindamycin Phosphate (CLEOCIN T) 1 % lotion Apply to affected areas twice daily - chlorhexidine (HIBICLENS) 4 % external liquid Wash affected area one to two times daily - dicyclomine (BENTYL) 20 mg tablet Take 1 tablet by mouth four times daily as needed. - ondansetron orally disintegrating (ZOFRAN ODT) 4 mg disintegrating tablet Take 1 tablet by mouth every 8 hours as needed for nausea/vomiting. - QUEtiapine (SEROQUEL) 25 mg tablet Take 25 mg by mouth daily at bedtime. - promethazine (PHENERGAN) 12.5 mg tablet TAKE 1 TABLET BY MOUTH EVERY 6 HOURS NEEDED - pantoprazole DR (PROTONIX) 40 mg tablet Take 1 tablet by mouth twice daily. - ALPRAZolam (XANAX) 1 mg tablet Take 1 mg by mouth four times daily as needed. - citalopram hydrobromide (CELEXA ORAL) Take 30 mg by mouth. - acetaminophen (TYLENOL) 325 mg tablet Take 650 mg by mouth. - fluticasone (FLONASE) 50 mcg/actuation nasal spray Use 1 [place] in the nose. - Loperamide HCl (IMODIUM) 2 mg tab Take 1 tablet by mouth four times daily as needed. - L.ACIDOPH/B.LONG/L.PLANT /B.LAC (PROBIOTIC ACIDOPHILUS BEADS ORAL) Take by mouth. - Cetirizine 10 mg cap Take 10 mg by mouth once daily (more content not included)... Normal [facility] Office Visiton 01-09-2024 Follow-up visit [id number] Katy Vivas 1985 F Date Provider Department Center 01/09/2024 [id number] Family History Problem Relation Age of Onset No Known Problems Sister Anxiety disorder Mother No Known Problems Brother No Known Problems Sister Mental illness Mother Heart disease Mother No Known Problems Father No Known Problems Sister No Known Problems Brother Family Status - Relation Status Age at Sister Alive Mother Alive Brother Alive Sister Alive Father Alive Sister Alive Brother Alive Level of Service:64538 [place] OFFICE/OUTPATIENT ESTABLISHED LOW [facility] 20 MIN Reason for Visit and Comments: Swollen Glands [623659] - Left side and very painful Normal [facility] Progress Noteon 01-09-2024 Progress Note Augmentin 875 twice daily x 10 days Normal [facility] Progress Note We will start her on Augmentin 875 twice a day for 10 days. She is to get sergio or something equivalently sour and suck on those 4 times a day. Normal [facility] Progress Note 01/09/2024 Armin Vivas (: 1985) is a 38 y.o. female , Established patient, here for evaluation of the following chief complaint(s): Swollen Glands (Left side and very painful) ASSESSMENT/PLAN: 1. Sialoadenitis of submandibular gland Assessment & Plan: We will start her on Augmentin 875 twice a day for 10 days. She is to get sergio or something equivalently sour and suck on those 4 times a day. Orders: - CBC auto differential - C-reactive protein - Sedimentation rate, automated 2. Lymphadenitis Assessment & Plan: Augmentin 875 twice daily x 10 days Orders: - CBC auto differential - C-reactive protein - Sedimentation rate, automated Follow up if symptoms worsen or fail to improve. SUBJECTIVE/OBJECTIVE: HPI -Armin comes in today complaining of pain on the right side of her face and lower jaw and neck that even extends down into her supraclavicular area. She said this started about 4 days ago she woke up in the morning was tender and has progressively worsened. Her ear is actually hurting today. She says she has not had a sore throat and or any difficulty swallowing. And she is not aware of any fevers or chills. Review of Systems Constitutional: Negative for chills and fever. HENT: Positive for ear pain and facial swelling. Negative for dental problem, rhinorrhea, sinus pressure and sore throat. Respiratory: Negative for shortness of breath. Cardiovascular: Negative for chest pain and palpitations. Vitals: 01/09/24 0727 BP: 102/62 Pulse: 88 SpO2: 95% Weight: 176 lb (79.8 kg) Height: 5' 4" (1.626 m) Physical Exam Vitals and nursing note reviewed. Constitutional: General: She is not in acute distress. Appearance: Normal appearance. HENT: Head: Normocephalic and atraumatic. Right Ear: Tympanic membrane, ear canal and external ear normal. Left Ear: Tympanic membrane, ear canal and external ear normal. Mouth/Throat: Mouth: Mucous membranes are moist. Pharynx: Oropharynx is clear. Comments: Bimanual palpation of the submandibular sublingual saliva glands are tender to touch slightly swollen. She has good dentition and tonsillar pillars are normal. Eyes: Extraocular Movements: Extraocular movements intact. Pupils: Pupils are equal, round, and reactive to light. Neck: Comments: Anterior cervical chain on the left side is tender with some mild lymphadenopathy. Cardiovascular: Rate and Rhythm: Normal rate and regular rhythm. Heart sounds: Normal heart sounds. No murmur heard. Pulmonary: Effort: Pulmonary effort is normal. Breath sounds: Normal breath sounds. Musculoskeletal: Cervical back: Neck supple. Tenderness present. Lymphadenopathy: Cervical: Cervical adenopathy present. Neurological: Mental Status: She is alert. An electronic signature was used to authenticate this note. Azael Irene MD 01/09/2024 7:55 AM [facility] Progress Note Patient verified by last name and date of . [facility] 36on 01-08-2024 36 Okay, thank you [facility] 36 S: Patient spoke wit h [facility] nurse regarding neck pain B: Onset of symptoms/concern 01/05/24 A: States neck pain with swollen lymph glands of L side from mandible to clavicle. States painful to swallow, painful when moving neck or when chewing. States pain is 8/10 described as dull ache unless moving then pain is sharp. Denies fever, denies cough, denies nasal congestion, denies shortness of breath, denies chest pain. R: Appt 01/09/24 @ [address] Irene. Patient declined offer of same day appointment. Negative responses to COVID screening. Advised patient should arrive 15 minutes early, bring photo ID, ins cards, and medications. Patient understands care advice to utilize OTC pain medications per package directions, cold compress ir ice packs for swelling and discomfort. No further needs at this time. Patient instructed to call back with new or worsening symptoms. Reason for Disposition SEVERE pain (e.g., excruciating, unable to do any normal activities) Protocols used: Neck Pain or Xoapdrzag-DOUPF-[id number] Normal [facility] Absolute lymphocyte countOrd ered By: Merlin Ely on 12-26-2023 Lymphocytes Auto (Unsp spec) [#/Vol] 3.07 10*3/uL 0.83-4.51 [facility] Automated lymphocyte count a s percentage of total leukocytesOrdered By: Merlin Ely on 12-26-2023 Lymphocytes/100 WBC Auto (Unsp spec) 25.4 % 19-41 [facility] Basophil percentageOrdered B y: Merlin Ely on 12-26-2023 Basophil percentage 25-50 SEEN /hpf 0-5 [facility] Basophils/100 WBC (Bld) 0.7 % 0-1 [facility] Bilirubin [Mass/Vol] 0.40 mg/dL 0.20-1.00 [facility] Comment on above: For patients on eltr ombopag therapy, use of Dimension [place] TBIL is not recommended. Chloride [Moles/Vol] 108 mmol/L 98-107 [facility] Eosinophils/100 WBC (Bld) 1.1 % 0-5 [facility] Glucose [Mass/Vol] 106 mg/dL 74-106 [facility] Comment on above: Fasting Glucose resu lt from 100 to 125 mg/dL suggests IMPAIRED HOMEOSTASIS per A.D.A. criteria. Hemoglobin (Bld) [Mass/Vol] 13.1 g/dL 12.0-15.0 [facility] Monocytes/100 WBC (Bld) 6.2 % 0-10 [facility] Neutrophils (Bld) [#/Vol] 8.0 10*3/uL 2.0-7.7 [facility] Neutrophils/100 WBC (Bld) 66.2 % 47-70 [facility] Potassium [Moles/Vol] 3.2 mmol/L 3.5-5.1 [facility] Protein [Mass/Vol] 7.2 g/dL 6.4-8.2 [facility] Sodium [Moles/Vol] 138 mmol/L 136-145 [facility] WBC (Bld) [#/Vol] 12.1 10*3/uL 4.4-11.0 [facility] Bilirubin Test strip Ql (U)O rdered By: Merlin Ely on 12-26-2023 Bilirubin Ql (U) Negative Negative [facility] Determination of erythrocyte mean corpuscular volume (MCV)Ordered By: Merlin Ely on 12-26-2023 MCV (RBC) [Entitic vol] 85.0 fL 81-99 [facility] Erythrocyte distribution wid th ratioOrdered By: Merlin Ely on 12-26-2023 Erythrocyte distribution width (RBC) [Ratio] 13.1 % 11.6-14.6 [facility] Erythrocyte distribution wid th standard deviationOrdered By: Merlin Ely on 12-26-2023 Erythrocyte distribution width (RBC) [Entitic vol] 40.2 fL 35.1-43.9 [facility] Hematocrit Auto (Bld) [Volum e fraction]Ordered By: Merlin Ely on 12-26-2023 Hematocrit (Bld) [Volume fraction] 39.1 % 37-47 [facility] Immature granulocytes/100 WB C Auto (Bld)Ordered By: Merlin Ely on 12-26-2023 Immature granulocytes/100 WBC (Bld) 0.400 % 0.0-0.9 [facility] Comment on above: IG% - Immature Granu locytes (promyelocytes, myelocytes and metamyelocytes) > 1% indicates that a LEFT SHIFT is Present. Ketones Test strip Ql (U)Ord ered By: Merlin Ely on 12-26-2023 Ketones Ql (U) 50 mg/dl Negative [facility] Laboratory - Chemistry and C hemistry - challengeOrdered By: Merlin Ely on 12-26-2023 Albumin/Globulin [Mass ratio] 1.2 {ratio} 0.9-2.4 [facility] ALP [Catalytic activity/Vol] 67 U/L 45-117 [facility] ALT [Catalytic activity/Vol] 16 U/L 13-56 [facility] CO2 [Moles/Vol] 21.0 mmol/L 21.0-32.0 [facility] Globulin (S) [Mass/Vol] 3.3 g/dL 2.2-4.2 [facility] Lipase [Catalytic activity/Vol] 28 U/L 13-75 [facility] Comment on above: Please note:LIPASE r evised reference range effective 22. New Lipase methodology. Expected to produce lower values than the previous assay method. NEW Reference Range: 13 - 75 U/L Urea nitrogen/Creatinine [Mass ratio] 21.9 mg/mg 10-20 [facility] - Hematology and Cell countsOrdered By: Merlin Ely on 12-26-2023 MCH (RBC) [Entitic mass] 28.5 pg 27.0-32.0 [facility] MCHC (RBC) [Mass/Vol] 33.5 g/dL 32-36 [facility] Nucleated RBC/100 WBC (Bld) [Ratio] 0 % 0-5 [facility] Platelet mean volume (Bld) [Entitic vol] 10.2 fL 6.2-12.0 [facility] Platelets (Bld) [#/Vol] 391 10*3/uL 150-450 [facility] Mucus LM Ql (Urine sed)Order ed By: Merlin Ely on 12-26-2023 Mucus Ql (Urine sed) 0 SEEN /hpf [facility] Nitrite Test strip Ql (U)Ord ered By: Merlin Ely on 12-26-2023 Nitrite Ql (U) Negative Negative [facility] No Panel InformationOrdered By: Merlin Ely on 12-26-2023 Urine RBC 0 SEEN /hpf 0-5 [facility] Estimated Creatinine Clearance Calc 133.05 ml/min [facility] Estimated GFR (MDRD) Amer 147 mL/min >60 [facility] Comment on above: GFR Calc Estimated GFR (MDRD) Non-Af Amer 122 mL/min >60 [facility] Comment on above: Non- GFR Calc Troponin I High Sensitivity < 3 pg/mL 3.0-54.0 [facility] Comment on above: Please Note: New Courtney t Units and Gender Specific Reference Ranges. For more information see Policy Stat Procedure [place] High Sensitivity Troponin (TNIH) and attachments. Protein Test strip Ql (U)Ord ered By: Merlin Ely on 12-26-2023 Protein Ql (U) 30 mg/dl Negative [facility] RBC Auto (Bld) [#/Vol]Ordere d By: Merlin Ely on 12-26-2023 RBC (Bld) [#/Vol] 4.60 10*6/uL 4.2-5.4 [facility] Serum or plasma calcium catiie urement (mass/volume)Ordered By: Merlin Ely on 12-26-2023 Calcium [Mass/Vol] 9.1 mg/dL 8.5-10.1 [facility] Serum or plasma choriogonado tropin detectionOrdered By: Merlin Ely on 12-26-2023 HCG ( test) Ql Negative [facility] Serum or plasma creatinine m easurement (mass/volume)Ordered By: Merlin Ely on 12-26-2023 Creatinine [Mass/Vol] 0.59 mg/dL 0.55-1.02 [facility] Comment on above: The validity of the calculated GFR & GFRAA in patients over 70 years has not been determined. Clinical correlation is essential. Serum or plasma urea nitroge n measurement (mass/volume)Ordered By: Merlin Ely on 12-26-2023 Urea nitrogen [Mass/Vol] 13 mg/dL 7-18 [facility] Squamous epithelial cells de tection in urine sediment by light microscopyOrdered By: Merlin Ely on 12-26-2023 Epithelial cells.squamous LM Ql (Urine sed) 5-10 SEEN /hpf 5-10 [facility] Thin prep Papanicolaou smear with manual screeningOrdered By: Merlin Ely on 04-25-2024 Thin prep Papanicolaou smear with manual screening 3.9 g/dL 3.2-5.0 [facility] Thin prep Papanicolaou smear with manual screening 11 U/L 15-37 [facility] Thin prep Papanicolaou smear with manual screening 9 5-15 [facility] Urine blood detectionOrdered By: Merlin Ely on 12-26-2023 RBC Ql (U) 25 /ul Negative [facility] Urine clarityOrdered By: Elsy Ely on 12-26-2023 Clarity (U) Sl. Cloudy Clear [facility] Urine color determinationOrd ered By: Merlin Ely on 12-26-2023 Color (U) Yellow Yellow [facility] Urine glucose detectionOrder ed By: Merlin Ely on 12-26-2023 Glucose Ql (U) Normal mg/dl Normal [facility] Urine leukocyte esterase det ection by dipstickOrdered By: Merlin Ely on 12-26-2023 Leukocyte esterase Test strip Ql (U) 500 /ul Negative [facility] Urine pHOrdered By: Merlin robin on 12-26-2023 pH (U) 7.0 [pH] 5.0 - 8.0 [facility] Urine sediment bacteria coun t by microscopy (number/high power field)Ordered By: Merlin Ely on 12-26-2023 Bacteria LM.HPF (Urine sed) [#/Area] 1 /[HPF] None Seen [facility] Urine specific gravity measu rementOrdered By: Merlin Ely on 12-26-2023 Specific gravity (U) [Rel density] 1.010 1.002-1.030 [facility] Urine urobilinogen measureme ntOrdered By: Merlin Ely on 12-26-2023 Urobilinogen Ql (U) Normal mg/dl Normal [facility] 36on 11-13-2023 36 Message released to patient as written. Patient's further questions if applicable: Pt had no questions. Were all questions from office addressed or relayed to the patient from encounter: Yes Normal [facility] 36 Referral done Normal [facility] 36 Name of caller: Dashl or Contact phone number: [phone] Relationship to Patient: patient Provider: Maria Victoria Practice: [facility] Chief Complaint/Reason for Call: Patient went to ER on 11.10.2023 with extreme stomach pains radiating to her chest and back. Vomiting. 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 Patient needs a referral to this doctor. Please inform patient when completed. Please advise. Best time of day caller can be reached: any Patient advised that office/PCP has 24-48 business hours to return their call: Yes Normal [facility] Absolute lymphocyte countOrd ered By: Rad Wilkerson on 11-13-2023 Lymphocytes Auto (Unsp spec) [#/Vol] 3.71 10*3/uL 0.83-4.51 [facility] Automated lymphocyte count a s percentage of total leukocytesOrdered By: Rad Wilkerson on 11-13-2023 Lymphocytes/100 WBC Auto (Unsp spec) 25.8 % 19-41 [facility] Basophil percentageOrdered B y: Rad Wilkerson on 11-13-2023 Basophils/100 WBC (Bld) 0.8 % 0-1 [facility] Bilirubin [Mass/Vol] 0.30 mg/dL 0.20-1.00 [facility] Comment on above: For patients on eltr ombopag therapy, use of Dimension [place] TBIL is not recommended. Chloride [Moles/Vol] 116 mmol/L 98-107 [facility] Eosinophils/100 WBC (Bld) 1.6 % 0-5 [facility] Glucose [Mass/Vol] 79 mg/dL 74-106 [facility] Hemoglobin (Bld) [Mass/Vol] 13.3 g/dL 12.0-15.0 [facility] Monocytes/100 WBC (Bld) 5.9 % 0-10 [facility] Neutrophils (Bld) [#/Vol] 9.4 10*3/uL 2.0-7.7 [facility] Neutrophils/100 WBC (Bld) 65.3 % 47-70 [facility] Potassium [Moles/Vol] 3.1 mmol/L 3.5-5.1 [facility] Protein [Mass/Vol] 5.5 g/dL 6.4-8.2 [facility] Sodium [Moles/Vol] 142 mmol/L 136-145 [facility] WBC (Bld) [#/Vol] 14.4 10*3/uL 4.4-11.0 [facility] Determination of erythrocyte mean corpuscular volume (MCV)Ordered By: Rad Wilkerson on 11-13-2023 MCV (RBC) [Entitic vol] 88.8 fL 81-99 [facility] Erythrocyte distribution wid th ratioOrdered By: Rad Wilkerson on 11-13-2023 Erythrocyte distribution width (RBC) [Ratio] 13.3 % 11.6-14.6 [facility] Erythrocyte distribution wid th standard deviationOrdered By: Rad Wilkerson on 11-13-2023 Erythrocyte distribution width (RBC) [Entitic vol] 43.0 fL 35.1-43.9 [facility] Hematocrit Auto (Bld) [Volum e fraction]Ordered By: Rad Wilkerson on 11-13-2023 Hematocrit (Bld) [Volume fraction] 40.6 % 37-47 [facility] Immature granulocytes/100 WB C Auto (Bld)Ordered By: Rad Wilkerson on 11-13-2023 Immature granulocytes/100 WBC (Bld) 0.600 % 0.0-0.9 [facility] Comment on above: IG% - Immature Granu locytes (promyelocytes, myelocytes and metamyelocytes) > 1% indicates that a LEFT SHIFT is Present. Laboratory - Chemistry and C hemistry - challengeOrdered By: Rad Wilkerson on 11-13-2023 Albumin/Globulin [Mass ratio] 1.0 {ratio} 0.9-2.4 [facility] ALP [Catalytic activity/Vol] 56 U/L 45-117 [facility] ALT [Catalytic activity/Vol] 21 U/L -56 [facility] CO2 [Moles/Vol] 20.0 mmol/L 21.0-32.0 [facility] Globulin (S) [Mass/Vol] 2.8 g/dL 2.2-4.2 [facility] Lipase [Catalytic activity/Vol] 22 U/L 13-75 [facility] Comment on above: Please note:LIPASE r evised reference range effective 22. New Lipase methodology. Expected to produce lower values than the previous assay method. NEW Reference Range: 13 - 75 U/L Urea nitrogen/Creatinine [Mass ratio] 20.6 mg/mg 10-20 [facility] Laboratory - Hematology and Cell countsOrdered By: Rad Wilkerson on 11-13-2023 MCH (RBC) [Entitic mass] 29.1 pg 27.0-32.0 [facility] MCHC (RBC) [Mass/Vol] 32.8 g/dL 32-36 [facility] Nucleated RBC/100 WBC (Bld) [Ratio] 0 % 0-5 [facility] Platelet mean volume (Bld) [Entitic vol] 9.3 fL 6.2-12.0 [facility] Platelets (Bld) [#/Vol] 360 10*3/uL 150-450 [facility] No Panel InformationOrdered By: Rad Wilkerson on 11-13-2023 Estimated Creatinine Clearance Calc 201.45 ml/min [facility] Estimated GFR (MDRD) Amer 241 mL/min >60 [facility] Comment on above: GFR Calc Estimated GFR (MDRD) Non-Af Amer 199 mL/min >60 [facility] Comment on above: Non- GFR Calc RBC Auto (Bld) [#/Vol]Ordere d By: Rad Wilkerson on 11-13-2023 RBC (Bld) [#/Vol] 4.57 10*6/uL 4.2-5.4 [facility] Serum or plasma calcium caitie urement (mass/volume)Ordered By: Rad Wilkerson on 11-13-2023 Calcium [Mass/Vol] 7.3 mg/dL 8.5-10.1 [facility] Serum or plasma creatinine m easurement (mass/volume)Ordered By: Rad Wilkerson on 11-13-2023 Creatinine [Mass/Vol] 0.39 mg/dL 0.55-1.02 [facility] Comment on above: The validity of the calculated GFR & GFRAA in patients over 70 years has not been determined. Clinical correlation is essential. Serum or plasma urea nitroge n measurement (mass/volume)Ordered By: Rad Wilkerson on 11-13-2023 Urea nitrogen [Mass/Vol] 8 mg/dL 7-18 [facility] Thin prep Papanicolaou smear with manual screeningOrdered By: Rad Wilkerson on 11-13-2023 Thin prep Papanicolaou smear with manual screening 2.7 g/dL 3.2-5.0 [facility] Thin prep Papanicolaou smear with manual screening 19 U/L 15-37 [facility] Thin prep Papanicolaou smear with manual screening 6 5-15 [facility] Absolute lymphocyte countOrd ered By: Niyah Cr on 11-10-2023 Lymphocytes Auto (Unsp spec) [#/Vol] 3.55 10*3/uL 0.83-4.51 [facility] Automated lymphocyte count a s percentage of total leukocytesOrdered By: Niyah Hankins on 11-10-2023 Lymphocytes/100 WBC Auto (Unsp spec) 29.0 % 19-41 [facility] Basophil percentageOrdered B y: Niyah Hankisn on 11-10-2023 Basophils/100 WBC (Bld) 1.0 % 0-1 [facility] Bilirubin [Mass/Vol] 0.30 mg/dL 0.20-1.00 [facility] Comment on above: For patients on eltr ombopag therapy, use of Dimension [place] TBIL is not recommended. Chloride [Moles/Vol] 104 mmol/L 98-107 [facility] Eosinophils/100 WBC (Bld) 2.0 % 0-5 [facility] Glucose [Mass/Vol] 96 mg/dL 74-106 [facility] Hemoglobin (Bld) [Mass/Vol] 14.1 g/dL 12.0-15.0 [facility] Monocytes/100 WBC (Bld) 7.4 % 0-10 [facility] Neutrophils (Bld) [#/Vol] 7.4 10*3/uL 2.0-7.7 [facility] Neutrophils/100 WBC (Bld) 60.1 % 47-70 [facility] Potassium [Moles/Vol] 3.7 mmol/L 3.5-5.1 [facility] Protein [Mass/Vol] 7.4 g/dL 6.4-8.2 [facility] Sodium [Moles/Vol] 141 mmol/L 136-145 [facility] WBC (Bld) [#/Vol] 12.2 10*3/uL 4.4-11.0 [facility] Determination of erythrocyte mean corpuscular volume (MCV)Ordered By: Niyah Hankins on 11-10-2023 MCV (RBC) [Entitic vol] 87.3 fL 81-99 [facility] Direct bilirubinOrdered By: Niyah Hankins on 11-10-2023 Bilirubin.direct [Mass/Vol] 0.06 mg/dL 0.00-0.30 [facility] Erythrocyte distribution wid th ratioOrdered By: Niyah Hankins on 11-10-2023 Erythrocyte distribution width (RBC) [Ratio] 13.4 % 11.6-14.6 [facility] Erythrocyte distribution wid th standard deviationOrdered By: Niyahmikhail Hankins on 11-10-2023 Erythrocyte distribution width (RBC) [Entitic vol] 42.8 fL 35.1-43.9 [facility] Hematocrit Auto (Bld) [Volum e fraction]Ordered By: Niyah Hankins on 11-10-2023 Hematocrit (Bld) [Volume fraction] 43.2 % 37-47 [facility] Immature granulocytes/100 WB C Auto (Bld)Ordered By: Niyahmikhail Hankins on 11-10-2023 Immature granulocytes/100 WBC (Bld) 0.500 % 0.0-0.9 [facility] Comment on above: IG% - Immature Granu locytes (promyelocytes, myelocytes and metamyelocytes) > 1% indicates that a LEFT SHIFT is Present. Laboratory - Chemistry and C hemistry - challengeOrdered By: Niyah Hankins on 11-10-2023 ALP [Catalytic activity/Vol] 78 U/L 45-117 [facility] ALT [Catalytic activity/Vol] 32 U/L 13-56 [facility] CO2 [Moles/Vol] 28.0 mmol/L 21.0-32.0 [facility] Globulin (S) [Mass/Vol] 3.5 g/dL 2.2-4.2 [facility] Lipase [Catalytic activity/Vol] 41 U/L 13-75 [facility] Comment on above: Please note:LIPASE r evised reference range effective 22. New Lipase methodology. Expected to produce lower values than the previous assay method. NEW Reference Range: 13 - 75 U/L Urea nitrogen/Creatinine [Mass ratio] 22.7 mg/mg 10-20 [facility] - Hematology and Cell countsOrdered By: Niyah Hankins on 11-10-2023 MCH (RBC) [Entitic mass] 28.5 pg 27.0-32.0 [facility] MCHC (RBC) [Mass/Vol] 32.6 g/dL 32-36 [facility] Nucleated RBC/100 WBC (Bld) [Ratio] 0 % 0-5 [facility] Platelet mean volume (Bld) [Entitic vol] 9.5 fL 6.2-12.0 [facility] Platelets (Bld) [#/Vol] 444 10*3/uL 150-450 [facility] No Panel InformationOrdered By: Niyah Hankins on 11-10-2023 Estimated Creatinine Clearance Calc 119.88 ml/min [facility] Estimated GFR (MDRD) Amer 130 mL/min >60 [facility] Comment on above: GFR Calc Estimated GFR (MDRD) Non-Af Amer 107 mL/min >60 [facility] Comment on above: Non- GFR Calc RBC Auto (Bld) [#/Vol]Ordere d By: Niyah Hankins on 11-10-2023 RBC (Bld) [#/Vol] 4.95 10*6/uL 4.2-5.4 [facility] Serum or plasma calcium caitie urement (mass/volume)Ordered By: Niyah Hnakins on 11-10-2023 Calcium [Mass/Vol] 10.1 mg/dL 8.5-10.1 [facility] Serum or plasma choriogonado tropin detectionOrdered By: Niyah Hankins on 11-10-2023 HCG ( test) Ql Negative [facility] Serum or plasma creatinine m easurement (mass/volume)Ordered By: Niyah Hankins on 11-10-2023 Creatinine [Mass/Vol] 0.66 mg/dL 0.55-1.02 [facility] Comment on above: The validity of the calculated GFR & GFRAA in patients over 70 years has not been determined. Clinical correlation is essential. Serum or plasma urea nitroge n measurement (mass/volume)Ordered By: Niyah Hankins on 11-10-2023 Urea nitrogen [Mass/Vol] 15 mg/dL 7-18 [facility] Thin prep Papanicolaou smear with manual screeningOrdered By: Niyah Hankins on 11-10-2023 Thin prep Papanicolaou smear with manual screening 3.9 g/dL 3.2-5.0 [facility] Thin prep Papanicolaou smear with manual screening 15 U/L 15-37 [facility] Thin prep Papanicolaou smear with manual screening 9 5-15 [facility] CNOVon 09-17-2023 CNOV Office Visit (DERMST ) -------- ARMIN VIVAS ([id number]) 1985 F Date Time Provider Department 09/17/23 9:45 AM LAVON DEWITT DERM During your visit today, we recorded the following information about you: Lavon Dewitt APRN.CNP 09/17/2023 10:54 AM Signed Department of Dermatology Lavon Dewitt APRN.CNP 09/17/2023 Last visit in Dermatology: Visit date not found Objective/Assessment/Damian n 1. Hidradenitis suppurativa Left Inguinal Area, Pubic, [...] Physical Exam included: External genitals Ban Delarosa APRN.CNP (training) I have seen and evaluated the patient and discussed the case with the PA/FEEDER ASSOCIATE trainee. I agree with the assessment and plan as documented in the PA/FEEDER ASSOCIATE's note. PRICILA Berger Mackenzie, APRN.CNP 09/17/2023 10:28 AM Addendum Start Hibiclens 4% wash to affected areas daily followed by Clindamycin 1% lotion twice daily Start Doxycyline 20 twice daily x 3 months DOXYCYCLINE Mechanism of action: This medication is an antibiotic that is commonly used for its anti-inflammatory properties Uses: Acne, hidradenitis suppurativa, rosacea, soft tissue infections, bullous pemphigoid Monitoring: - There is no requirement for initial or routine laboratory monitoring Side Effects: - The most common side effects of doxycycline include upset stomach, heartburn, and sensitivity to the sun. - Other less common side effects include rash, abdominal pain, and severe headaches. - In females there is a risk of decreased control pill effectiveness and yeast infections. - Other side effects may be possible. If you experience any of the side effects noted above, please contact our clinic. Important information: - Doxycycline should not be taken by patients that are or planning as children born to mothers taking doxycycline may have discolored teeth and delayed bone development. - Please take the medication with food and plenty of water. Avoid taking the medication with dairy products such as milk or yogurt. - Please sit upright for 15 minutes after taking the medication. - As this medication increases sensitivity to the sun it is recommended that you wear sunscreen daily while on the medication. Allergies As of Date: 09/17/2023 Noted Allergy Reaction MORPHINE 06/19/2015 14 - Other: See Comments Comments: "Heart feels funny", has safely taken percocet, dilaudid NECTARINE 04/19/2022 14 - Other: See Comments Comments: Angioedema OTHER OMEGA-3S 06/09/2018 7 - Swelling Comments: NECTARINES REGLAN (METOCLOPRAMIDE) 11/01/2021 14 - Other: See Comments Comments: Blurry vision Date Reviewed: 09/17/2023 Reviewed by: Ban Delarosa APRN.DAM TENDER - Fully Assessed Reason for Visit: New Patient [172] Cmt: Bumps in groin area. Primary Visit Diagnosis:Hidradenitis suppurativa [L73.2] Other Visit Diagnosis:Skin pain [R20.8] Order(s):Clindamycin Phosphate (CLEOCIN T) 1 % lotionApply to affected areas twice dailyDisp: 60 mLRfl: 5 doxycycline 20 mg (more content not included)... Normal [facility] 36on 09-09-2023 36 Placed call to scarlett coley to schedule ER follow up. Voicemail left for patient to return call to schedule follow up. Normal [facility] ED PROV NOTEon 09-08-2023 ED PROV NOTE HNO ID: [id number] Author: LILO MARTINEZ MD Service: Emergency Medicine Author Type: Physician Type: ED Provider Notes Filed: 09/08/2023 15:14 Note Text: ED Provider Note Patient Name: Armin Vivas : 1985 SERVICE DATE: 09/08/23 History Patient presents with: Laceration Patient presenting to the emergency room for evaluation of laceration. She was trying to unpack some knives that she got for [place] when she excellently sliced her right index finger. Had trouble controlling bleeding. Unknown last tetanus shot. No other injuries. This was not intent to harm herself. No difficulty bending the finger. Denies foreign body sensation. Happened immediately prior to arrival. Pain is mild and sharp and does not radiate. Denies other acute sick symptoms PAST MEDICAL HISTORY Diagnosis Date Abdominal pain Anxiety C. difficile diarrhea Colitis Dx not confirmed 2013, 1 episode Crohn's colitis (HCC) Depression Diarrhea Dysphagia GERD (gastroesophageal reflux disease) Nausea AND vomiting Ulcerative colitis (HCC) PAST SURGICAL HISTORY Procedure Laterality Date COLONOSCOPY 2017 EGD FAMILY HISTORY Problem Relation Age of Onset Coronary Artery Disease Mother Hx PA age 45 Diabetes Maternal Grandmother Social History Tobacco Use Smoking status: Every Day Packs/day: .5 Types: Cigarettes Smokeless tobacco: Never Vaping Use Vaping Use: Never used Substance and Sexual Activity Alcohol use: No Drug use: No Sexual activity: Yes ALLERGIES Allergen Reactions Morphine Other: See Comments "Heart feels funny", has safely taken percocet, dilaudid Other [place]-3s Swelling NECTARINES Reglan [Metoclopram* Other: See Comments Blurry vision Review of Systems Constitutional: Negative for activity change, chills and fever. HENT: Negative for ear discharge and ear pain. Eyes: Negative for pain and discharge. Respiratory: Negative for cough and shortness of breath. Cardiovascular: Negative for chest pain and palpitations. Gastrointestinal: Negative for abdominal pain, diarrhea, nausea and vomiting. Genitourinary: Negative for dysuria and flank pain. Musculoskeletal: Negative for back pain and neck pain. Skin: Positive for wound. Negative for color change and rash. Neurological: Negative for dizziness, seizures and numbness. Psychiatric/Behavioral: Negative for self-injury and suicidal ideas. Physical Exam Vitals [09/08/23 1417] BP Pulse Temp Temp src Resp SpO2 Weight Height 129/67 (!) 96 36.8 ?C (98.2 ?F) Temporal 16 99 % -- -- Physical Exam Vitals and nursing note reviewed. Constitutional: General: She is not in acute distress. Appearance: She is well-developed. She is not diaphoretic. HENT: Head: Normocephalic and atraumatic. Right Ear: External ear normal. Left Ear: External ear normal. Nose: Nose normal. Mouth/Throat: Mouth: Mucous membranes are moist. Pharynx: No oropharyngeal exudate or posterior oropharyngeal erythema. Eyes: General: No scleral icterus. Right eye: No discharge. Left eye: No discharge. Pupils: Pupils are equal, round, and reactive to light. Cardiovascular: Rate and Rhythm: Normal rate and regular rhythm. Heart sounds: Normal heart sounds. No murmur heard. No friction rub. No gallop. Pulmonary: Effort: Pulmonary effort is normal. No respiratory distress. Breath sounds: Normal breath sounds. No stridor. No wheezing or rales. Chest: Chest wall: No tenderness. Abdominal: Palpations: Abdomen is soft. Tenderness: There is no abdominal tenderness. There is no guarding. Musculoskeletal: General: No tenderness or deformity. Normal range of motion. Cervical back: Normal range of motion and neck supple. Comments: Patient is able to flex extend at the MCP PIP and DIP of all 4 fingers individually 1 another on the right hand. Able to oppose the thumb to the pinky finger without difficulty. No signs of tendon injury on my evaluation. Skin: General: Skin is warm and dry. Capillary Refill: Capillary refill takes less than 2 seconds. Findings: No rash. Comments: 2-1/2 cm superficial laceration over the palmar aspect of the distal phalanx of the right index finger. No tendon involvement. No foreign bodies appreciated. Neurological: General: No focal deficit present. Mental Status: She is alert and oriented to person, place, and time. Cranial Nerves: No cranial nerve deficit. Sensory: No sensory deficit. Motor: No weakness. Psychiatric: Mood and Affect: Mood normal. Behavior: Behavior normal. Diagnostic Testing ED Labs Ordered and Reviewed - No data to display LAC REPAIR Date/Time: 09/08/2023 3:13 PM Performed by: Lilo Martinez MD Authorized by: Lilo Martinez MD Risks discussed: Infection, pain, retained foreign body, tendon damage, poor wound healing, vascular damage, nerve damage, poor cosmetic result and need for additional repair Al (more content not included)... Normal [facility] Absolute lymphocyte countOrd ered By: ED PROVIDER on 07-23-2023 Lymphocytes Auto (Unsp spec) [#/Vol] 4.48 10*3/uL 0.83-4.51 [facility] Basophil percentageOrdered B y: Earl Smith on 07-23-2023 Basophil percentage 0 SEEN /hpf 0-5 [facility] Basophil percentageOrdered B y: ED PROVIDER on 07-23-2023 Basophils/100 WBC (Bld) 0.7 % 0-1 [facility] Bilirubin [Mass/Vol] 0.40 mg/dL 0.20-1.00 [facility] Comment on above: For patients on eltr ombopag therapy, use of Dimension [place] TBIL is not recommended. Chloride [Moles/Vol] 108 mmol/L 98-107 [facility] Eosinophils/100 WBC (Bld) 1.2 % 0-5 [facility] Glucose [Mass/Vol] 95 mg/dL 74-106 [facility] Neutrophils (Bld) [#/Vol] 7.7 10*3/uL 2.0-7.7 [facility] Neutrophils/100 WBC (Bld) 57.7 % 47-70 [facility] Potassium [Moles/Vol] 3.4 mmol/L 3.5-5.1 [facility] Protein [Mass/Vol] 7.6 g/dL 6.4-8.2 [facility] Sodium [Moles/Vol] 139 mmol/L 136-145 [facility] WBC (Bld) [#/Vol] 13.4 10*3/uL 4.4-11.0 [facility] Beta hCG serum qualOrdered B y: ED PROVIDER on 07-23-2023 Beta HCG ( test) Ql Negative [facility] Bilirubin Test strip Ql (U)O rdered By: Earl Smith on 07-23-2023 Bilirubin Ql (U) Negative Negative [facility] Blood erythrocytes count (nu mber/volume)Ordered By: ED PROVIDER on 07-23-2023 RBC (Bld) [#/Vol] 4.89 10*6/uL 4.2-5.4 [facility] Blood hemoglobin measurement (mass/volume)Ordered By: ED PROVIDER on 07-23-2023 Hemoglobin (Bld) [Mass/Vol] 14.0 g/dL 12.0-15.0 [facility] Blood lymphocytes/100 leukoc ytesOrdered By: ED PROVIDER on 07-23-2023 Lymphocytes/100 WBC (Bld) 33.5 % 19-41 [facility] Blood monocytes/100 leukocyt esOrdered By: ED PROVIDER on 07-23-2023 Monocytes/100 WBC (Bld) 6.6 % 0-10 [facility] Blood platelet mean volumeOr dered By: ED PROVIDER on 07-23-2023 Platelet mean volume (Bld) [Entitic vol] 9.5 fL 6.2-12.0 [facility] Determination of erythrocyte mean corpuscular volume (MCV)Ordered By: ED PROVIDER on 07-23-2023 MCV (RBC) [Entitic vol] 86.5 fL 81-99 [facility] Hematocrit Auto (Bld) [Volum e fraction]Ordered By: ED PROVIDER on 07-23-2023 Hematocrit (Bld) [Volume fraction] 42.3 % 37-47 [facility] Ketones Test strip Ql (U)Ord ered By: Earl Smith on 07-23-2023 Ketones Ql (U) 150 mg/dl Negative [facility] Comment on above: CRITICAL VALUE *HCRI TICAL VALUE VERIFIED. CALLED TO LUPE LOVELL07/23/232024 Ravi Mcgill.RESULTS READ BACK BY SAME . Laboratory - Chemistry and C hemistry - challengeOrdered By: ED PROVIDER on 07-23-2023 ALP [Catalytic activity/Vol] 63 U/L 45-117 [facility] ALT [Catalytic activity/Vol] 16 U/L 13-56 [facility] CO2 [Moles/Vol] 25.0 mmol/L 21.0-32.0 [facility] Globulin (S) [Mass/Vol] 3.2 g/dL 2.2-4.2 [facility] Urea nitrogen/Creatinine [Mass ratio] 22.3 mg/mg 10-20 [facility] Laboratory - Hematology and Cell countsOrdered By: ED PROVIDER on 07-23-2023 Erythrocyte distribution width (RBC) [Entitic vol] 41.5 fL 35.1-43.9 [facility] Erythrocyte distribution width (RBC) [Ratio] 13.2 % 11.6-14.6 [facility] Immature granulocytes/100 WBC (Bld) 0.300 % 0.0-0.9 [facility] Comment on above: IG% - Immature Granu locytes (promyelocytes, myelocytes and metamyelocytes) > 1% indicates that a LEFT SHIFT is Present. MCH (RBC) [Entitic mass] 28.6 pg 27.0-32.0 [facility] Nucleated RBC/100 WBC (Bld) [Ratio] 0 % 0-5 [facility] MCHC Auto (RBC) [Mass/Vol]Or dered By: ED PROVIDER on 07-23-2023 MCHC (RBC) [Mass/Vol] 33.1 g/dL 32-36 [facility] Mucus LM Ql (Urine sed)Order ed By: Earl Smith on 07-23-2023 Mucus Ql (Urine sed) 0 SEEN /hpf [facility] Nitrite Test strip Ql (U)Ord ered By: Earl Smith on 07-23-2023 Nitrite Ql (U) Negative Negative [facility] No Panel InformationOrdered By: ED PROVIDER on 07-23-2023 Estimated Creatinine Clearance Calc 101.20 ml/min [facility] Estimated GFR (MDRD) Amer 128 mL/min >60 [facility] Comment on above: GFR Calc Estimated GFR (MDRD) Non-Af Amer 106 mL/min >60 [facility] Comment on above: Non- GFR Calc Platelets bldOrdered By: ED PROVIDER on 07-23-2023 Platelets (Bld) [#/Vol] 444 10*3/uL 150-450 [facility] Protein Test strip Ql (U)Ord ered By: Earl Smith on 07-23-2023 Protein Ql (U) 30 mg/dl Negative [facility] Serum or plasma albumin caitie urement (mass/volume)Ordered By: ED PROVIDER on 07-23-2023 Albumin [Mass/Vol] 4.4 g/dL 3.2-5.0 [facility] Serum or plasma albumin/glob ulin mass ratioOrdered By: ED PROVIDER on 07-23-2023 Albumin/Globulin [Mass ratio] 1.4 {ratio} 0.9-2.4 [facility] Serum or plasma calcium caitie urement (mass/volume)Ordered By: ED PROVIDER on 07-23-2023 Calcium [Mass/Vol] 9.8 mg/dL 8.5-10.1 [facility] Serum or plasma creatinine m easurement (mass/volume)Ordered By: ED PROVIDER on 07-23-2023 Creatinine [Mass/Vol] 0.67 mg/dL 0.55-1.02 [facility] Comment on above: The validity of the calculated GFR & GFRAA in patients over 70 years has not been determined. Clinical correlation is essential. Serum or plasma urea nitroge n measurement (mass/volume)Ordered By: ED PROVIDER on 07-23-2023 Urea nitrogen [Mass/Vol] 15 mg/dL 7-18 [facility] Squamous epithelial cells de tection in urine sediment by light microscopyOrdered By: Earl Smith on 07-23-2023 Epithelial cells.squamous LM Ql (Urine sed) 0-5 SEEN /hpf 5-10 [facility] Thin prep Papanicolaou smear with manual screeningOrdered By: ED PROVIDER on 07-23-2023 Thin prep Papanicolaou smear with manual screening 11 U/L 15-37 [facility] Thin prep Papanicolaou smear with manual screening 6 5-15 [facility] Urine blood detectionOrdered By: Earl Smith on 07-23-2023 RBC Ql (U) 10 /ul Negative [facility] RBC Ql (U) 0 SEEN /hpf 0-5 [facility] Urine clarityOrdered By: Carolynn Smith on 07-23-2023 Clarity (U) Sl. Cloudy Clear [facility] Urine color determinationOrd ered By: Earl Smith on 07-23-2023 Color (U) Yellow Yellow [facility] Urine glucose detectionOrder ed By: Earl Smith on 07-23-2023 Glucose Ql (U) Normal mg/dl Normal [facility] Urine leukocyte esterase det ection by dipstickOrdered By: Earl Smith on 07-23-2023 Leukocyte esterase Test strip Ql (U) 25 /ul Negative [facility] Urine pHOrdered By: Earl dorsey on 07-23-2023 pH (U) 7.0 [pH] 5.0 - 8.0 [facility] Urine sediment bacteria coun t by microscopy (number/high power field)Ordered By: Earl Smith on 07-23-2023 Bacteria LM.HPF (Urine sed) [#/Area] 0 /[HPF] None Seen [facility] Urine specific gravity measu rementOrdered By: Earl Smith on 07-23-2023 Specific gravity (U) [Rel density] 1.005 1.002-1.030 [facility] Urobilinogen Auto test strip Ql (U)Ordered By: Earl Smith on 07-23-2023 Urobilinogen Ql (U) Normal mg/dl Normal [facility] CNPNon 06-11-2023 CNPN Telephone (DERMMN) -------- ARMIN VIVAS ([id number]) 1985 F Date Time Provider Department 06/11/23 DERM AND PLASTICS DERMMN During your visit today, we recorded the following information about you: Milton Plunkett 06/11/2023 9:30 AM Signed Received omr Scanned to chart Michelle Oliver MD 06/11/2023 2:57 PM Signed OUTSIDE MEDICAL RECORD REVIEW AND SUMMARY Referring Provider/Address: No referring provider defined for this encounter. Specialty: Women's Health Patient's Location: [facility] [id number] Pages of records reviewed: < 10 Problem: [...] further referrals pending in person evaluation Michelle Oliver MD June 11, 2023 2:49 PM Allergies As of Date: 06/11/2023 Noted Allergy Reaction MORPHINE 06/19/2015 14 - Other: See Comments Comments: "Heart feels funny", has safely taken percocet, dilaudid OTHER OMEGA-3S 06/09/2018 7 - Swelling Comments: NECTARINES REGLAN (METOCLOPRAMIDE) 11/01/2021 14 - Other: See Comments Comments: Blurry vision Date Reviewed: 03/14/2023 Reviewed by: Eduardo Zuluaga MD - Fully Assessed Reason for Visit: Received Outside Medical Records [[id number]] Prescriptions as of 06/11/2023 - acetaminophen (TYLENOL) 325 mg tablet Take 650 mg by mouth. - ALPRAZolam (XANAX) 1 mg tablet Take 1 mg by mouth four times daily as needed. - Cetirizine 10 mg cap Take 10 mg by mouth once daily. - citalopram hydrobromide (CELEXA ORAL) Take 30 mg by mouth. - dicyclomine (BENTYL) 20 mg tablet Take 1 tablet by mouth four times daily as needed. - fluticasone (FLONASE) 50 mcg/actuation nasal spray Use 1 [place] in the nose. - L.ACIDOPH/B.LONG/L.PLANT /B.LAC (PROBIOTIC ACIDOPHILUS BEADS ORAL) Take by mouth. - Loperamide HCl (IMODIUM) 2 mg tab Take 1 tablet by mouth four times daily as needed. - ondansetron (ZOFRAN) 4 mg tablet Take 1 tablet by mouth every 8 hours as needed. - ondansetron orally disintegrating (ZOFRAN ODT) 4 mg disintegrating tablet Take 1 tablet by mouth every 8 hours as needed for nausea/vomiting. - pantoprazole DR (PROTONIX) 40 mg tablet Take 1 tablet by mouth twice daily. - promethazine (PHENERGAN) 12.5 mg tablet TAKE 1 TABLET BY MOUTH EVERY 6 HOURS NEEDED - QUEtiapine (SEROQUEL) 25 mg tablet Take 25 mg by mouth daily at bedtime. Problem List As Of Date 06/11/2023 Noted Resolved Acute colitis [K52.9] 06/19/2015 Palpitations [R00.2] 06/19/2015 Anxiety and depression [F41.9, F32.A] 06/19/2015 Seasonal allergies [J30.2] 06/19/2015 Abdominal pain [R10.9] Diarrhea [R19.7] Nausea AND vomiting [R11.2] Anxiety [F41.9] ROCK (generalized anxiety disorder) [F41.1] 01/09/2017 Dysphagia [R13.10] GERD (gastroesophageal reflux disease) [K21.9] Intractable vomiting with nausea [R11.2] 08/14/2018 Vomiting [R11.10] 08/14/2018 Crohn's disease (HCC) [K50.90] 11/24/2021 Nicotine use disorder, F17.2 [F17.200] 11/24/2021 Encounter Status:Closed by MICHELLE OLIVER on 06/11/23 Normal [facility] Bacteria identified Cx Nom ( Wound)Ordered By: Adrianna Mota on 05-31-2023 Wound Culture Staphylococcus epidermidis [facility] Gram stain for investigation of transfusion reactionOrdered By: Adrianna Mota on 05-31-2023 Microscopic observation Gram stain Nom (Unsp spec) [facility] Thin prep Papanicolaou smear with manual screeningOrdered By: Adrianna Mota on 05-31-2023 Thin prep Papanicolaou smear with manual screening Neisseria or beta-hemolytic Streptococcus isolated. [facility] Absolute lymphocyte countOrd ered By: Rikki Maddox on 05-03-2023 Lymphocytes Auto (Unsp spec) [#/Vol] 4.25 10*3/uL 0.83-4.51 [facility] Basophil percentageOrdered B y: Rikki Maddox on 05-03-2023 Basophils/100 WBC (Bld) 0.8 % 0-1 [facility] Bilirubin [Mass/Vol] 0.40 mg/dL 0.20-1.00 [facility] Comment on above: For patients on eltr ombopag therapy, use of Dimension [place] TBIL is not recommended. Chloride [Moles/Vol] 109 mmol/L 98-107 [facility] Eosinophils/100 WBC (Bld) 1.7 % 0-5 [facility] Glucose [Mass/Vol] 91 mg/dL 74-106 [facility] Neutrophils (Bld) [#/Vol] 9.2 10*3/uL 2.0-7.7 [facility] Neutrophils/100 WBC (Bld) 62.7 % 47-70 [facility] Potassium [Moles/Vol] 3.6 mmol/L 3.5-5.1 [facility] Protein [Mass/Vol] 7.0 g/dL 6.4-8.2 [facility] Sodium [Moles/Vol] 138 mmol/L 136-145 [facility] WBC (Bld) [#/Vol] 14.6 10*3/uL 4.4-11.0 [facility] Beta hCG serum qualOrdered B y: Rikki Maddox on 05-03-2023 Beta HCG ( test) Ql Negative [facility] Blood erythrocytes count (nu mber/volume)Ordered By: Rikki Maddox on 05-03-2023 RBC (Bld) [#/Vol] 4.62 10*6/uL 4.2-5.4 [facility] Blood hemoglobin measurement (mass/volume)Ordered By: Rikki Maddox on 05-03-2023 Hemoglobin (Bld) [Mass/Vol] 13.6 g/dL 12.0-15.0 [facility] Blood lymphocytes/100 leukoc ytesOrdered By: Rikki Maddox on 05-03-2023 Lymphocytes/100 WBC (Bld) 29.0 % 19-41 [facility] Blood monocytes/100 leukocyt esOrdered By: Rikki Maddox on 05-03-2023 Monocytes/100 WBC (Bld) 5.5 % 0-10 [facility] Blood platelet mean volumeOr dered By: Rikki Maddox on 05-03-2023 Platelet mean volume (Bld) [Entitic vol] 9.3 fL 6.2-12.0 [facility] Determination of erythrocyte mean corpuscular volume (MCV)Ordered By: Rikki Maddox on 05-03-2023 MCV (RBC) [Entitic vol] 86.4 fL 81-99 [facility] Hematocrit Auto (Bld) [Volum e fraction]Ordered By: Rikki Maddox on 05-03-2023 Hematocrit (Bld) [Volume fraction] 39.9 % 37-47 [facility] Laboratory - Chemistry and C hemistry - challengeOrdered By: Rikki Maddox on 05-03-2023 ALP [Catalytic activity/Vol] 63 U/L 45-117 [facility] ALT [Catalytic activity/Vol] 16 U/L 13-56 [facility] CO2 [Moles/Vol] 21.0 mmol/L 21.0-32.0 [facility] Globulin (S) [Mass/Vol] 3.2 g/dL 2.2-4.2 [facility] Lipase [Catalytic activity/Vol] 28 U/L 13-75 [facility] Comment on above: Please note:LIPASE r evised reference range effective 22. New Lipase methodology. Expected to produce lower values than the previous assay method. NEW Reference Range: 13 - 75 U/L Urea nitrogen/Creatinine [Mass ratio] 20.1 mg/mg 10-20 [facility] Laboratory - Hematology and Cell countsOrdered By: Rikki Maddox on 05-03-2023 Erythrocyte distribution width (RBC) [Entitic vol] 41.6 fL 35.1-43.9 [facility] Erythrocyte distribution width (RBC) [Ratio] 13.3 % 11.6-14.6 [facility] Immature granulocytes/100 WBC (Bld) 0.300 % 0.0-0.9 [facility] Comment on above: IG% - Immature Granu locytes (promyelocytes, myelocytes and metamyelocytes) > 1% indicates that a LEFT SHIFT is Present. MCH (RBC) [Entitic mass] 29.4 pg 27.0-32.0 [facility] Nucleated RBC/100 WBC (Bld) [Ratio] 0 % 0-5 [facility] MCHC Auto (RBC) [Mass/Vol]Or dered By: Rikki Maddox on 05-03-2023 MCHC (RBC) [Mass/Vol] 34.1 g/dL 32-36 [facility] No Panel InformationOrdered By: Rikki Maddox on 05-03-2023 Estimated Creatinine Clearance Calc 104.32 ml/min [facility] Estimated GFR (MDRD) Amer 134 mL/min >60 [facility] Comment on above: GFR Calc Estimated GFR (MDRD) Non-Af Amer 111 mL/min >60 [facility] Comment on above: Non- GFR Calc Platelets bldOrdered By: Gal Maddox on 05-03-2023 Platelets (Bld) [#/Vol] 382 10*3/uL 150-450 [facility] Serum or plasma albumin caitie urement (mass/volume)Ordered By: Rikki Maddox on 05-03-2023 Albumin [Mass/Vol] 3.8 g/dL 3.2-5.0 [facility] Serum or plasma albumin/glob ulin mass ratioOrdered By: Rikki Maddox on 05-03-2023 Albumin/Globulin [Mass ratio] 1.2 {ratio} 0.9-2.4 [facility] Serum or plasma calcium caitie urement (mass/volume)Ordered By: Rikki Maddox on 05-03-2023 Calcium [Mass/Vol] 9.1 mg/dL 8.5-10.1 [facility] Serum or plasma creatinine m easurement (mass/volume)Ordered By: Rikki Maddox on 05-03-2023 Creatinine [Mass/Vol] 0.65 mg/dL 0.55-1.02 [facility] Comment on above: The validity of the calculated GFR & GFRAA in patients over 70 years has not been determined. Clinical correlation is essential. Serum or plasma urea nitroge n measurement (mass/volume)Ordered By: Rikki Maddox on 05-03-2023 Urea nitrogen [Mass/Vol] 13 mg/dL 7-18 [facility] Thin prep Papanicolaou smear with manual screeningOrdered By: Rikki Maddox on 05-03-2023 Thin prep Papanicolaou smear with manual screening 10 U/L 15-37 [facility] Thin prep Papanicolaou smear with manual screening 8 5-15 [facility] Absolute lymphocyte countOrd ered By: Pedro Malhotra on 03-26-2023 Lymphocytes Auto (Unsp spec) [#/Vol] 3.27 10*3/uL 0.83-4.51 [facility] Basophil percentageOrdered B y: Pedro Malhotra on 03-26-2023 Basophils/100 WBC (Bld) 0.7 % 0-1 [facility] Eosinophils/100 WBC (Bld) 2.3 % 0-5 [facility] Neutrophils (Bld) [#/Vol] 8.8 10*3/uL 2.0-7.7 [facility] Neutrophils/100 WBC (Bld) 66.1 % 47-70 [facility] WBC (Bld) [#/Vol] 13.3 10*3/uL 4.4-11.0 [facility] Bilirubin [Mass/Vol] 0.30 mg/dL 0.20-1.00 [facility] Comment on above: For patients on eltr ombopag therapy, use of Dimension [place] TBIL is not recommended. Chloride [Moles/Vol] 114 mmol/L 98-107 [facility] Glucose [Mass/Vol] 99 mg/dL 74-106 [facility] Potassium [Moles/Vol] 4.1 mmol/L 3.5-5.1 [facility] Comment on above: Moderate Hemolysis, Result may be falsely increased. Protein [Mass/Vol] 7.1 g/dL 6.4-8.2 [facility] Sodium [Moles/Vol] 141 mmol/L 136-145 [facility] Beta hCG serum qualOrdered B y: Pedro Malhotra on 03-26-2023 Beta HCG ( test) Ql Negative [facility] Blood erythrocytes count (nu mber/volume)Ordered By: Pedro Malhotra on 03-26-2023 RBC (Bld) [#/Vol] 4.05 10*6/uL 4.2-5.4 [facility] Blood hemoglobin measurement (mass/volume)Ordered By: Pedro Malhotra on 03-26-2023 Hemoglobin (Bld) [Mass/Vol] 12.1 g/dL 12.0-15.0 [facility] Blood lymphocytes/100 leukoc ytesOrdered By: Pedro Malhotra on 03-26-2023 Lymphocytes/100 WBC (Bld) 24.5 % 19-41 [facility] Blood monocytes/100 leukocyt esOrdered By: Pedro Malhotra on 03-26-2023 Monocytes/100 WBC (Bld) 6.2 % 0-10 [facility] Blood platelet mean volumeOr dered By: Pedro Malhotra on 03-26-2023 Platelet mean volume (Bld) [Entitic vol] 9.2 fL 6.2-12.0 [facility] Determination of erythrocyte mean corpuscular volume (MCV)Ordered By: Pedro Malhotra on 03-26-2023 MCV (RBC) [Entitic vol] 87.4 fL 81-99 [facility] Direct bilirubinOrdered By: Pedro Malhotra on 03-26-2023 Bilirubin.direct [Mass/Vol] mg/dL 0.00-0.30 [facility] Hematocrit Auto (Bld) [Volum e fraction]Ordered By: Pedro Malhotra on 03-26-2023 Hematocrit (Bld) [Volume fraction] 35.4 % 37-47 [facility] Laboratory - Chemistry and C hemistry - challengeOrdered By: Pedro Malhotra on 03-26-2023 ALP [Catalytic activity/Vol] 62 U/L 45-117 [facility] ALT [Catalytic activity/Vol] 19 U/L 13-56 [facility] CO2 [Moles/Vol] 22.0 mmol/L 21.0-32.0 [facility] Globulin (S) [Mass/Vol] 3.3 g/dL 2.2-4.2 [facility] Lipase [Catalytic activity/Vol] 41 U/L 13-75 [facility] Comment on above: Please note:LIPASE r evised reference range effective 22. New Lipase methodology. Expected to produce lower values than the previous assay method. NEW Reference Range: 13 - 75 U/L Urea nitrogen/Creatinine [Mass ratio] 15.9 mg/mg 10-20 [facility] - Hematology and Cell countsOrdered By: Pedro Malhotra on 03-26-2023 Erythrocyte distribution width (RBC) [Entitic vol] 44.8 fL 35.1-43.9 [facility] Erythrocyte distribution width (RBC) [Ratio] 13.9 % 11.6-14.6 [facility] Immature granulocytes/100 WBC (Bld) 0.200 % 0.0-0.9 [facility] Comment on above: IG% - Immature Granu locytes (promyelocytes, myelocytes and metamyelocytes) > 1% indicates that a LEFT SHIFT is Present. MCH (RBC) [Entitic mass] 29.9 pg 27.0-32.0 [facility] Nucleated RBC/100 WBC (Bld) [Ratio] 0 % 0-5 [facility] [Mass/Vol]Or dered By: Pedro Malhotra on 03-26-2023 MCHC (RBC) [Mass/Vol] 34.2 g/dL 32-36 [facility] No Panel InformationOrdered By: Pedro Malhotra on 03-26-2023 Estimated Creatinine Clearance Calc 98.27 ml/min [facility] Estimated GFR (MDRD) Amer 124 mL/min >60 [facility] Comment on above: GFR Calc Estimated GFR (MDRD) Non-Af Amer 102 mL/min >60 [facility] Comment on above: Non- GFR Calc Troponin I High Sensitivity < 3 pg/mL 3.0-54.0 [facility] Comment on above: Please Note: New [place] t Units and Gender Specific Reference Ranges. For more information see Policy Stat Procedure [place] High Sensitivity Troponin (TNIH) and attachments. Platelets bldOrdered By: Richie Malhotra on 03-26-2023 Platelets (Bld) [#/Vol] 311 10*3/uL 150-450 [facility] Serum or plasma albumin caitie urement (mass/volume)Ordered By: Pedro Malhotra on 03-26-2023 Albumin [Mass/Vol] 3.8 g/dL 3.2-5.0 [facility] Serum or plasma calcium caitie urement (mass/volume)Ordered By: Pedro Malhotra on 03-26-2023 Calcium [Mass/Vol] 8.9 mg/dL 8.5-10.1 [facility] Serum or plasma creatinine m easurement (mass/volume)Ordered By: Pedro Malhotra on 03-26-2023 Creatinine [Mass/Vol] 0.69 mg/dL 0.55-1.02 [facility] Comment on above: The validity of the calculated GFR & GFRAA in patients over 70 years has not been determined. Clinical correlation is essential. Serum or plasma urea nitroge n measurement (mass/volume)Ordered By: Pedro Malhotra on 03-26-2023 Urea nitrogen [Mass/Vol] 11 mg/dL 7-18 [facility] Thin prep Papanicolaou smear with manual screeningOrdered By: Pedro Malhotra on 03-26-2023 Thin prep Papanicolaou smear with manual screening 22 U/L 15-37 [facility] Comment on above: Moderate Hemolysis, Result may be falsely increased. Thin prep Papanicolaou smear with manual screening 5 5-15 [facility] CNOVon 03-14-2023 CNOV Office Visit (AGGAST W) -------- ARMIN VIVAS ([id number]) 1985 F Date Time Provider Department 03/14/23 10:30 AM EDUARDO ZULUAGA AGGASTW During your visit today, we recorded the following information about you: Pulse Blood pressure Weight Height 91/minute 114/79 73 kg 1.626 m Eduardo Zuluaga MD 03/14/2023 11:28 AM Signed HPI: Armin Vivas is a 37 year [...] (FLONASE) 50 mcg/actuation nasal spray Use 1 [place] in the nose. Loperamide HCl (IMODIUM) 2 mg tab Take 1 tablet by mouth four times daily as needed. L.ACIDOPH/B.LONG/L.PLANT /B.LAC (PROBIOTIC ACIDOPHILUS BEADS ORAL) Take by mouth. Cetirizine 10 mg cap Take 10 mg by mouth once daily. pantoprazole DR (PROTONIX) 40 mg tablet Take 1 tablet by mouth twice daily. No current facility-administered medications for this visit. ALLERGIES Allergen Reactions Morphine Other: See Comments "Heart feels funny", has safely taken percocet, dilaudid Other [place]-3s Swelling NECTARINES Reglan [Metoclopram* Other: See Comments [...] EXAMINATION: BP 114/79 Pulse 91 Ht 5' 4" (1.63m) Wt 161 lb (73.0kg) LMP 06/02/2022 [...] - glucose breath test neg for SIBO. Eduardo Zuluaga MD Referring Provider: AZAEL IRENE [[id number]] Allergies As of Date: 03/14/2023 Noted Allergy Reaction MORPHINE 06/19/2015 14 - Other: See Comments Comments: "Heart feels funny", has safely taken percocet, dilaudid OTHER OMEGA-3S 06/09/2018 7 - Swelling Comments: NECTARINES REGLAN (METOCLOPRAMIDE) 11/01/2021 14 - Other: See Comments Comments: Blurry vision Date Reviewed: 03/14/2023 Reviewed by: Eduardo Zuluaga MD - Fully Assessed Reason for Visit: F/U 3 Month [443] Primary Visit Diagnosis:Diarrhea, unspecified type [R19.7] Other Visit Diagnoses:Irritable bowel syndrome with diarrhea [K58.0] Nausea [R11.0] Order(s):PANC ELASTASE, FECAL [SQPANCEF] Order #: [id number] FUTURE Prescriptions as of 03/14/2023 - dicyclomine (BENTYL) 20 mg tablet Take 1 tablet by mouth four times daily as needed. - ondansetron orally disintegrating (ZOFRAN ODT) 4 mg disintegrating tablet Take 1 tablet by mouth every 8 hours as needed for nausea/vomiting. - QUEtiapine (SEROQUEL) 25 mg tablet Take 25 mg by mouth daily at bedtime. - promethazine (PHENERGAN) 12.5 mg tablet TAKE 1 TABLET BY MOUTH EVERY 6 HOURS NEEDED - ondansetron (ZOFRAN) 4 mg tablet Take 1 tablet by mouth every 8 hours as needed. - pantoprazole DR (PROTONIX) 40 mg tablet Take 1 tablet by mouth twice daily. - ALPRAZolam (XANAX) 1 mg tablet Take 1 mg (more content not included)... Normal [facility] Absolute lymphocyte countOrd ered By: Dr. Maddox on 02-04-2023 Lymphocytes Auto (Unsp spec) [#/Vol] 4.00 10*3/uL 0.83-4.51 [facility] Basophil percentageOrdered B y: Dr. Maddox on 02-04-2023 Basophil percentage 0 SEEN /hpf 0-5 [facility] Basophils/100 WBC (Bld) 0.8 % 0-1 [facility] Bilirubin [Mass/Vol] 0.30 mg/dL 0.20-1.00 [facility] Comment on above: For patients on eltr ombopag therapy, use of Dimension [place] TBIL is not recommended. Chloride [Moles/Vol] 111 mmol/L 98-107 [facility] Eosinophils/100 WBC (Bld) 2.3 % 0-5 [facility] Glucose [Mass/Vol] 89 mg/dL 74-106 [facility] Neutrophils (Bld) [#/Vol] 6.6 10*3/uL 2.0-7.7 [facility] Neutrophils/100 WBC (Bld) 55.7 % 47-70 [facility] Potassium [Moles/Vol] 3.8 mmol/L 3.5-5.1 [facility] Protein [Mass/Vol] 7.0 g/dL 6.4-8.2 [facility] Sodium [Moles/Vol] 141 mmol/L 136-145 [facility] WBC (Bld) [#/Vol] 11.9 10*3/uL 4.4-11.0 [facility] Beta hCG serum qualOrdered B y: Dr. Maddox on 02-04-2023 Beta HCG ( test) Ql Negative [facility] Bilirubin Test strip Ql (U)O rdered By: Dr. Maddox on 02-04-2023 Bilirubin Ql (U) Negative Negative [facility] Blood erythrocytes count (nu mber/volume)Ordered By: Dr. Maddox on 02-04-2023 RBC (Bld) [#/Vol] 4.35 10*6/uL 4.2-5.4 [facility] Blood hemoglobin measurement (mass/volume)Ordered By: Dr. Maddox on 02-04-2023 Hemoglobin (Bld) [Mass/Vol] 13.0 g/dL 12.0-15.0 [facility] Blood lymphocytes/100 leukoc ytesOrdered By: Dr. Maddox on 02-04-2023 Lymphocytes/100 WBC (Bld) 33.6 % 19-41 [facility] Blood monocytes/100 leukocyt esOrdered By: Dr. Maddox on 02-04-2023 Monocytes/100 WBC (Bld) 7.0 % 0-10 [facility] Blood platelet mean volumeOr dered By: Dr. Maddox on 02-04-2023 Platelet mean volume (Bld) [Entitic vol] 9.9 fL 6.2-12.0 [facility] Determination of erythrocyte mean corpuscular volume (MCV)Ordered By: Dr. Maddox on 02-04-2023 MCV (RBC) [Entitic vol] 89.0 fL 81-99 [facility] Hematocrit Auto (Bld) [Volum e fraction]Ordered By: Dr. Maddox on 02-04-2023 Hematocrit (Bld) [Volume fraction] 38.7 % 37-47 [facility] Ketones Test strip Ql (U)Ord ered By: Dr. Maddox on 02-04-2023 Ketones Ql (U) Negative Negative [facility] Laboratory - Chemistry and C hemistry - challengeOrdered By: Dr. Maddox on 02-04-2023 ALP [Catalytic activity/Vol] 56 U/L 45-117 [facility] ALT [Catalytic activity/Vol] 21 U/L 13-56 [facility] CO2 [Moles/Vol] 25.0 mmol/L 21.0-32.0 [facility] Globulin (S) [Mass/Vol] 3.2 g/dL 2.2-4.2 [facility] Urea nitrogen/Creatinine [Mass ratio] 20.4 mg/mg 10-20 [facility] - Hematology and Cell countsOrdered By: Dr. Maddox on 02-04-2023 Erythrocyte distribution width (RBC) [Entitic vol] 46.3 fL 35.1-43.9 [facility] Erythrocyte distribution width (RBC) [Ratio] 14.2 % 11.6-14.6 [facility] Immature granulocytes/100 WBC (Bld) 0.600 % 0.0-0.9 [facility] Comment on above: IG% - Immature Granu locytes (promyelocytes, myelocytes and metamyelocytes) > 1% indicates that a LEFT SHIFT is Present. MCH (RBC) [Entitic mass] 29.9 pg 27.0-32.0 [facility] Nucleated RBC/100 WBC (Bld) [Ratio] 0 % 0-5 [facility] MCHC Auto (RBC) [Mass/Vol]Or dered By: Dr. Maddox on 02-04-2023 MCHC (RBC) [Mass/Vol] 33.6 g/dL 32-36 [facility] Mucus LM Ql (Urine sed)Order ed By: Dr. Maddox on 02-04-2023 Mucus Ql (Urine sed) 0 SEEN /hpf [facility] Nitrite Test strip Ql (U)Ord ered By: Dr. Maddox on 02-04-2023 Nitrite Ql (U) Negative Negative [facility] No Panel InformationOrdered By: Dr. Maddox on 02-04-2023 Estimated Creatinine Clearance Calc 114.92 ml/min [facility] Estimated GFR (MDRD) Amer 150 mL/min >60 [facility] Comment on above: GFR Calc Estimated GFR (MDRD) Non-Af Amer 124 mL/min >60 [facility] Comment on above: Non- GFR Calc Platelets bldOrdered By: Dr. Maddox on 02-04-2023 Platelets (Bld) [#/Vol] 405 10*3/uL 150-450 [facility] Protein Test strip Ql (U)Ord ered By: Dr. Maddox on 02-04-2023 Protein Ql (U) Negative Negative [facility] Serum or plasma albumin caitie urement (mass/volume)Ordered By: Dr. Maddox on 02-04-2023 Albumin [Mass/Vol] 3.8 g/dL 3.2-5.0 [facility] Serum or plasma albumin/glob ulin mass ratioOrdered By: Dr. Maddox on 02-04-2023 Albumin/Globulin [Mass ratio] 1.2 {ratio} 0.9-2.4 [facility] Serum or plasma calcium caitie urement (mass/volume)Ordered By: Dr. Maddox on 02-04-2023 Calcium [Mass/Vol] 9.0 mg/dL 8.5-10.1 [facility] Serum or plasma creatinine m easurement (mass/volume)Ordered By: Dr. Maddox on 02-04-2023 Creatinine [Mass/Vol] 0.59 mg/dL 0.55-1.02 [facility] Comment on above: The validity of the calculated GFR & GFRAA in patients over 70 years has not been determined. Clinical correlation is essential. Serum or plasma urea nitroge n measurement (mass/volume)Ordered By: Dr. Maddox on 02-04-2023 Urea nitrogen [Mass/Vol] 12 mg/dL 7-18 [facility] Squamous epithelial cells de tection in urine sediment by light microscopyOrdered By: Dr. Maddox on 02-04-2023 Epithelial cells.squamous LM Ql (Urine sed) 0 SEEN /hpf 5-10 [facility] Thin prep Papanicolaou smear with manual screeningOrdered By: Dr. Maddox on 02-04-2023 Thin prep Papanicolaou smear with manual screening 12 U/L 15-37 [facility] Thin prep Papanicolaou smear with manual screening 5 5-15 [facility] Urine blood detectionOrdered By: Dr. Maddox on 02-04-2023 RBC Ql (U) 25 /ul Negative [facility] RBC Ql (U) 0 SEEN /hpf 0-5 [facility] Urine clarityOrdered By: Dr. Maddox on 02-04-2023 Clarity (U) Clear Clear [facility] Urine color determinationOrd ered By: Dr. Maddox on 02-04-2023 Color (U) Yellow Yellow [facility] Urine glucose detectionOrder ed By: Dr. Maddox on 02-04-2023 Glucose Ql (U) Normal mg/dl Normal [facility] Urine leukocyte esterase det ection by dipstickOrdered By: Dr. Maddox on 02-04-2023 Leukocyte esterase Test strip Ql (U) Negative Negative [facility] Urine pHOrdered By: Dr. Kaden alva on 02-04-2023 pH (U) 7.0 [pH] 5.0 - 8.0 [facility] Urine sediment bacteria coun t by microscopy (number/high power field)Ordered By: Dr. Maddox on 02-04-2023 Bacteria LM.HPF (Urine sed) [#/Area] 0 /[HPF] None Seen [facility] Urine specific gravity measu rementOrdered By: Dr. Maddox on 02-04-2023 Specific gravity (U) [Rel density] 1.010 1.002-1.030 [facility] Urobilinogen Auto test strip Ql (U)Ordered By: Dr. Maddox on 02-04-2023 Urobilinogen Ql (U) Normal mg/dl Normal [facility] Absolute lymphocyte countOrd ered By: Gaudencio Nair on 11-22-2022 Lymphocytes Auto (Unsp spec) [#/Vol] 2.14 10*3/uL 0.83-4.51 [facility] Basophil percentageOrdered B y: Gaudencio Nair on 11-22-2022 Basophils/100 WBC (Bld) 0.4 % 0-1 [facility] Bilirubin [Mass/Vol] 0.40 mg/dL 0.20-1.00 [facility] Comment on above: For patients on eltr ombopag therapy, use of Dimension [place] TBIL is not recommended. Chloride [Moles/Vol] 109 mmol/L 98-107 [facility] Eosinophils/100 WBC (Bld) 1.0 % 0-5 [facility] Glucose [Mass/Vol] 120 mg/dL 74-106 [facility] Comment on above: Fasting Glucose resu lt from 100 to 125 mg/dL suggests IMPAIRED HOMEOSTASIS per A.D.A. criteria. Neutrophils (Bld) [#/Vol] 13.6 10*3/uL 2.0-7.7 [facility] Neutrophils/100 WBC (Bld) 80.7 % 47-70 [facility] Potassium [Moles/Vol] 3.0 mmol/L 3.5-5.1 [facility] Protein [Mass/Vol] 7.3 g/dL 6.4-8.2 [facility] Sodium [Moles/Vol] 141 mmol/L 136-145 [facility] WBC (Bld) [#/Vol] 16.8 10*3/uL 4.4-11.0 [facility] Beta hCG serum qualOrdered B y: Gaudencio Nair on 11-22-2022 Beta HCG ( test) Ql Negative [facility] Blood erythrocytes count (nu mber/volume)Ordered By: Gaudencio Nair on 11-22-2022 RBC (Bld) [#/Vol] 4.88 10*6/uL 4.2-5.4 [facility] Blood hemoglobin measurement (mass/volume)Ordered By: Gaudencio Nair on 11-22-2022 Hemoglobin (Bld) [Mass/Vol] 14.4 g/dL 12.0-15.0 [facility] Blood lymphocytes/100 leukoc ytesOrdered By: Gauedncio Nair on 11-22-2022 Lymphocytes/100 WBC (Bld) 12.7 % 19-41 [facility] Blood monocytes/100 leukocyt esOrdered By: Gaudencio Nair on 11-22-2022 Monocytes/100 WBC (Bld) 4.8 % 0-10 [facility] Blood platelet mean volumeOr dered By: Gaudencio Nair on 11-22-2022 Platelet mean volume (Bld) [Entitic vol] 9.4 fL 6.2-12.0 [facility] Determination of erythrocyte mean corpuscular volume (MCV)Ordered By: Gaudencio Nair on 11-22-2022 MCV (RBC) [Entitic vol] 87.9 fL 81-99 [facility] Direct bilirubinOrdered By: Gaudencio Nair on 11-22-2022 Bilirubin.direct [Mass/Vol] 0.08 mg/dL 0.00-0.30 [facility] Hematocrit Auto (Bld) [Volum e fraction]Ordered By: Gaudencio Nair on 11-22-2022 Hematocrit (Bld) [Volume fraction] 42.9 % 37-47 [facility] - Chemistry and C hemistry - challengeOrdered By: Gaudencio Nair on 11-22-2022 ALP [Catalytic activity/Vol] 53 U/L 45-117 [facility] ALT [Catalytic activity/Vol] 17 U/L 13-56 [facility] CO2 [Moles/Vol] 23.0 mmol/L 21.0-32.0 [facility] Globulin (S) [Mass/Vol] 3.1 g/dL 2.2-4.2 [facility] Lipase [Catalytic activity/Vol] 188 U/L 73-393 [facility] Magnesium [Mass/Vol] 2.2 mg/dL 1.6-2.6 [facility] Urea nitrogen/Creatinine [Mass ratio] 35.7 mg/mg 10-20 [facility] - Hematology and Cell countsOrdered By: Gaudencio Nair on 11-22-2022 Erythrocyte distribution width (RBC) [Entitic vol] 40.6 fL 35.1-43.9 [facility] Erythrocyte distribution width (RBC) [Ratio] 12.7 % 11.6-14.6 [facility] Immature granulocytes/100 WBC (Bld) 0.400 % 0.0-0.9 [facility] Comment on above: IG% - Immature Granu locytes (promyelocytes, myelocytes and metamyelocytes) > 1% indicates that a LEFT SHIFT is Present. MCH (RBC) [Entitic mass] 29.5 pg 27.0-32.0 [facility] Nucleated RBC/100 WBC (Bld) [Ratio] 0 % 0-5 [facility] MCHC Auto (RBC) [Mass/Vol]Or dered By: Gaudencio Nair on 11-22-2022 MCHC (RBC) [Mass/Vol] 33.6 g/dL 32-36 [facility] No Panel InformationOrdered By: Gaudencio Nair on 11-22-2022 Estimated Creatinine Clearance Calc 110.40 ml/min [facility] Estimated GFR (MDRD) Amer 142 mL/min >60 [facility] Comment on above: GFR Calc Estimated GFR (MDRD) Non-Af Amer 117 mL/min >60 [facility] Comment on above: Non- GFR Calc Platelets bldOrdered By: Carlos Nair on 11-22-2022 Platelets (Bld) [#/Vol] 372 10*3/uL 150-450 [facility] Serum or plasma albumin caitie urement (mass/volume)Ordered By: Gaudencio Nair on 11-22-2022 Albumin [Mass/Vol] 4.2 g/dL 3.2-5.0 [facility] Serum or plasma calcium caitie urement (mass/volume)Ordered By: Gaudencio Nair on 11-22-2022 Calcium [Mass/Vol] 8.9 mg/dL 8.5-10.1 [facility] Serum or plasma creatinine m easurement (mass/volume)Ordered By: Gaudencio Nair on 11-22-2022 Creatinine [Mass/Vol] 0.62 mg/dL 0.55-1.02 [facility] Comment on above: The validity of the calculated GFR & GFRAA in patients over 70 years has not been determined. Clinical correlation is essential. Serum or plasma urea nitroge n measurement (mass/volume)Ordered By: Gaudencio Nair on 11-22-2022 Urea nitrogen [Mass/Vol] 22 mg/dL 7-18 [facility] Thin prep Papanicolaou smear with manual screeningOrdered By: Gaudencio Nair on 11-22-2022 Thin prep Papanicolaou smear with manual screening 11 U/L 15-37 [facility] Thin prep Papanicolaou smear with manual screening 9 5-15 [facility] Absolute lymphocyte countOrd ered By: Dr. Hankins on 11-12-2022 Lymphocytes Auto (Unsp spec) [#/Vol] 4.63 10*3/uL 0.83-4.51 [facility] Basophil percentageOrdered B y: Dr. Hankins on 11-12-2022 Basophils/100 WBC (Bld) 0.7 % 0-1 [facility] Bilirubin [Mass/Vol] 0.60 mg/dL 0.20-1.00 [facility] Comment on above: For patients on eltr ombopag therapy, use of Dimension [place] TBIL is not recommended. Chloride [Moles/Vol] 109 mmol/L 98-107 [facility] Eosinophils/100 WBC (Bld) 3.0 % 0-5 [facility] Glucose [Mass/Vol] 100 mg/dL 74-106 [facility] Comment on above: Fasting Glucose resu lt from 100 to 125 mg/dL suggests IMPAIRED HOMEOSTASIS per A.D.A. criteria. Neutrophils (Bld) [#/Vol] 4.7 10*3/uL 2.0-7.7 [facility] Neutrophils/100 WBC (Bld) 44.8 % 47-70 [facility] Potassium [Moles/Vol] 3.4 mmol/L 3.5-5.1 [facility] Protein [Mass/Vol] 7.5 g/dL 6.4-8.2 [facility] Sodium [Moles/Vol] 140 mmol/L 136-145 [facility] WBC (Bld) [#/Vol] 10.4 10*3/uL 4.4-11.0 [facility] Beta hCG serum qualOrdered B y: Dr. Hankins on 11-12-2022 Beta HCG ( test) Ql Negative [facility] Blood erythrocytes count (nu mber/volume)Ordered By: Dr. Hankins on 11-12-2022 RBC (Bld) [#/Vol] 4.59 10*6/uL 4.2-5.4 [facility] Blood hemoglobin measurement (mass/volume)Ordered By: Dr. Hankins on 11-12-2022 Hemoglobin (Bld) [Mass/Vol] 13.6 g/dL 12.0-15.0 [facility] Blood lymphocytes/100 leukoc ytesOrdered By: Dr. Hankins on 11-12-2022 Lymphocytes/100 WBC (Bld) 44.7 % 19-41 [facility] Blood monocytes/100 leukocyt esOrdered By: Dr. Hankins on 11-12-2022 Monocytes/100 WBC (Bld) 6.5 % 0-10 [facility] Blood platelet mean volumeOr dered By: Dr. Hankins on 11-12-2022 Platelet mean volume (Bld) [Entitic vol] 9.4 fL 6.2-12.0 [facility] Determination of erythrocyte mean corpuscular volume (MCV)Ordered By: Dr. Hankins on 11-12-2022 MCV (RBC) [Entitic vol] 88.9 fL 81-99 [facility] Direct bilirubinOrdered By: Dr. Hankins on 11-12-2022 Bilirubin.direct [Mass/Vol] 0.10 mg/dL 0.00-0.30 [facility] Hematocrit Auto (Bld) [Volum e fraction]Ordered By: Dr. Hankins on 11-12-2022 Hematocrit (Bld) [Volume fraction] 40.8 % 37-47 [facility] - Chemistry and C hemistry - challengeOrdered By: Dr. Hankins on 11-12-2022 ALP [Catalytic activity/Vol] 56 U/L 45-117 [facility] ALT [Catalytic activity/Vol] 17 U/L 13-56 [facility] CO2 [Moles/Vol] 24.0 mmol/L 21.0-32.0 [facility] Globulin (S) [Mass/Vol] 3.3 g/dL 2.2-4.2 [facility] Lipase [Catalytic activity/Vol] 119 U/L 73-393 [facility] Urea nitrogen/Creatinine [Mass ratio] 19.6 mg/mg 10-20 [facility] - Hematology and Cell countsOrdered By: Dr. Hankins on 11-12-2022 Erythrocyte distribution width (RBC) [Entitic vol] 43.0 fL 35.1-43.9 [facility] Erythrocyte distribution width (RBC) [Ratio] 13.2 % 11.6-14.6 [facility] Immature granulocytes/100 WBC (Bld) 0.300 % 0.0-0.9 [facility] Comment on above: IG% - Immature Granu locytes (promyelocytes, myelocytes and metamyelocytes) > 1% indicates that a LEFT SHIFT is Present. MCH (RBC) [Entitic mass] 29.6 pg 27.0-32.0 [facility] Nucleated RBC/100 WBC (Bld) [Ratio] 0 % 0-5 [facility] MCHC Auto (RBC) [Mass/Vol]Or dered By: Dr. Hankins on 11-12-2022 MCHC (RBC) [Mass/Vol] 33.3 g/dL 32-36 [facility] No Panel InformationOrdered By: Dr. Hankins on 11-12-2022 Estimated Creatinine Clearance Calc 103.71 ml/min [facility] Estimated GFR (MDRD) Amer 130 mL/min >60 [facility] Comment on above: GFR Calc Estimated GFR (MDRD) Non-Af Amer 108 mL/min >60 [facility] Comment on above: Non- GFR Calc Platelets bldOrdered By: Dr. Hankins on 11-12-2022 Platelets (Bld) [#/Vol] 412 10*3/uL 150-450 [facility] Serum or plasma albumin caitie urement (mass/volume)Ordered By: Dr. Hankins on 11-12-2022 Albumin [Mass/Vol] 4.2 g/dL 3.2-5.0 [facility] Serum or plasma calcium caitie urement (mass/volume)Ordered By: Dr. Hankins on 11-12-2022 Calcium [Mass/Vol] 9.4 mg/dL 8.5-10.1 [facility] Serum or plasma creatinine m easurement (mass/volume)Ordered By: Dr. Hankins on 11-12-2022 Creatinine [Mass/Vol] 0.66 mg/dL 0.55-1.02 [facility] Comment on above: The validity of the calculated GFR & GFRAA in patients over 70 years has not been determined. Clinical correlation is essential. Serum or plasma urea nitroge n measurement (mass/volume)Ordered By: Dr. Hankins on 11-12-2022 Urea nitrogen [Mass/Vol] 13 mg/dL 7-18 [facility] Thin prep Papanicolaou smear with manual screeningOrdered By: Dr. Hankins on 11-12-2022 Thin prep Papanicolaou smear with manual screening 13 U/L 15-37 [facility] Thin prep Papanicolaou smear with manual screening 7 5-15 [facility] Absolute lymphocyte countOrd ered By: Dr. Hankins on 10-03-2022 Lymphocytes Auto (Unsp spec) [#/Vol] 4.14 10*3/uL 0.83-4.51 [facility] Basophil percentageOrdered B y: Dr. Hankins on 10-03-2022 Basophil percentage 0 SEEN /hpf 0-5 [facility] Basophils/100 WBC (Bld) 0.8 % 0-1 [facility] Bilirubin [Mass/Vol] 0.20 mg/dL 0.20-1.00 [facility] Comment on above: For patients on eltr ombopag therapy, use of Dimension [place] TBIL is not recommended. Chloride [Moles/Vol] 107 mmol/L 98-107 [facility] Eosinophils/100 WBC (Bld) 2.3 % 0-5 [facility] Glucose [Mass/Vol] 99 mg/dL 74-106 [facility] Lactate [Moles/Vol] mmol/L 0.4-2.0 [facility] Neutrophils (Bld) [#/Vol] 5.5 10*3/uL 2.0-7.7 [facility] Neutrophils/100 WBC (Bld) 52.2 % 47-70 [facility] Potassium [Moles/Vol] 3.9 mmol/L 3.5-5.1 [facility] Protein [Mass/Vol] 7.0 g/dL 6.4-8.2 [facility] Sodium [Moles/Vol] 140 mmol/L 136-145 [facility] WBC (Bld) [#/Vol] 10.5 10*3/uL 4.4-11.0 [facility] Beta hCG serum qualOrdered B y: Dr. Hankins on 10-03-2022 Beta HCG ( test) Ql Negative [facility] Bilirubin Test strip Ql (U)O rdered By: Dr. Hankins on 10-03-2022 Bilirubin Ql (U) Negative Negative [facility] Blood erythrocytes count (nu mber/volume)Ordered By: Dr. Hankins on 10-03-2022 RBC (Bld) [#/Vol] 4.48 10*6/uL 4.2-5.4 [facility] Blood hemoglobin measurement (mass/volume)Ordered By: Dr. Hankins on 10-03-2022 Hemoglobin (Bld) [Mass/Vol] 13.1 g/dL 12.0-15.0 [facility] Blood lymphocytes/100 leukoc ytesOrdered By: Dr. Hankins on 10-03-2022 Lymphocytes/100 WBC (Bld) 39.3 % 19-41 [facility] Blood monocytes/100 leukocyt esOrdered By: Dr. Hankins on 10-03-2022 Monocytes/100 WBC (Bld) 5.0 % 0-10 [facility] Blood platelet mean volumeOr dered By: Dr. Hankins on 10-03-2022 Platelet mean volume (Bld) [Entitic vol] 9.2 fL 6.2-12.0 [facility] Determination of erythrocyte mean corpuscular volume (MCV)Ordered By: Dr. Hankins on 10-03-2022 MCV (RBC) [Entitic vol] 89.3 fL 81-99 [facility] Direct bilirubinOrdered By: Dr. Hankins on 10-03-2022 Bilirubin.direct [Mass/Vol] 0.05 mg/dL 0.00-0.30 [facility] Hematocrit Auto (Bld) [Volum e fraction]Ordered By: Dr. Hankins on 10-03-2022 Hematocrit (Bld) [Volume fraction] 40.0 % 37-47 [facility] Ketones Test strip Ql (U)Ord ered By: Dr. Hankins on 10-03-2022 Ketones Ql (U) Negative Negative [facility] - Chemistry and C hemistry - challengeOrdered By: Dr. Hankins on 10-03-2022 ALP [Catalytic activity/Vol] 52 U/L 45-117 [facility] ALT [Catalytic activity/Vol] 22 U/L 13-56 [facility] CO2 [Moles/Vol] 27.0 mmol/L 21.0-32.0 [facility] Globulin (S) [Mass/Vol] 3.0 g/dL 2.2-4.2 [facility] Lipase [Catalytic activity/Vol] 131 U/L 73-393 [facility] Urea nitrogen/Creatinine [Mass ratio] 24.0 mg/mg 10-20 [facility] - Hematology and Cell countsOrdered By: Dr. Hankins on 10-03-2022 Erythrocyte distribution width (RBC) [Entitic vol] 42.7 fL 35.1-43.9 [facility] Erythrocyte distribution width (RBC) [Ratio] 13.0 % 11.6-14.6 [facility] Immature granulocytes/100 WBC (Bld) 0.400 % 0.0-0.9 [facility] Comment on above: IG% - Immature Granu locytes (promyelocytes, myelocytes and metamyelocytes) > 1% indicates that a LEFT SHIFT is Present. MCH (RBC) [Entitic mass] 29.2 pg 27.0-32.0 [facility] Nucleated RBC/100 WBC (Bld) [Ratio] 0 % 0-5 [facility] MCHC Auto (RBC) [Mass/Vol]Or dered By: Dr. Hankins on 10-03-2022 MCHC (RBC) [Mass/Vol] 32.8 g/dL 32-36 [facility] Mucus LM Ql (Urine sed)Order ed By: Dr. Hankins on 10-03-2022 Mucus Ql (Urine sed) 0 SEEN /hpf [facility] Nitrite Test strip Ql (U)Ord ered By: Dr. Hankins on 10-03-2022 Nitrite Ql (U) Negative Negative [facility] No Panel InformationOrdered By: Dr. Hankins on 10-03-2022 Estimated Creatinine Clearance Calc 118.02 ml/min [facility] Estimated GFR (MDRD) Amer 151 mL/min >60 [facility] Comment on above: GFR Calc Estimated GFR (MDRD) Non-Af Amer 125 mL/min >60 [facility] Comment on above: Non- GFR Calc Platelets bldOrdered By: Dr. Hankins on 10-03-2022 Platelets (Bld) [#/Vol] 375 10*3/uL 150-450 [facility] Protein Test strip Ql (U)Ord ered By: Dr. Hankins on 10-03-2022 Protein Ql (U) Negative Negative [facility] Serum or plasma albumin caitie urement (mass/volume)Ordered By: Dr. Hankins on 10-03-2022 Albumin [Mass/Vol] 4.0 g/dL 3.2-5.0 [facility] Serum or plasma calcium caitie urement (mass/volume)Ordered By: Dr. Hankins on 10-03-2022 Calcium [Mass/Vol] 9.0 mg/dL 8.5-10.1 [facility] Serum or plasma creatinine m easurement (mass/volume)Ordered By: Dr. Hankins on 10-03-2022 Creatinine [Mass/Vol] 0.58 mg/dL 0.55-1.02 [facility] Comment on above: The validity of the calculated GFR & GFRAA in patients over 70 years has not been determined. Clinical correlation is essential. Serum or plasma urea nitroge n measurement (mass/volume)Ordered By: Dr. Hankins on 10-03-2022 Urea nitrogen [Mass/Vol] 14 mg/dL 7-18 [facility] Squamous epithelial cells de tection in urine sediment by light microscopyOrdered By: Dr. Hankins on 10-03-2022 Epithelial cells.squamous LM Ql (Urine sed) 0 SEEN /hpf 5-10 [facility] Thin prep Papanicolaou smear with manual screeningOrdered By: Dr. Hankins on 10-03-2022 Thin prep Papanicolaou smear with manual screening 15 U/L 15-37 [facility] Thin prep Papanicolaou smear with manual screening 6 5-15 [facility] Urine blood detectionOrdered By: Dr. Hankins on 10-03-2022 RBC Ql (U) Negative Negative [facility] RBC Ql (U) 0 SEEN /hpf 0-5 [facility] Urine clarityOrdered By: Dr. Hankins on 10-03-2022 Clarity (U) Clear Clear [facility] Urine color determinationOrd ered By: Dr. Hankins on 10-03-2022 Color (U) Yellow Yellow [facility] Urine glucose detectionOrder ed By: Dr. Hankins on 10-03-2022 Glucose Ql (U) Normal mg/dl Normal [facility] Urine leukocyte esterase det ection by dipstickOrdered By: Dr. Hankins on 10-03-2022 Leukocyte esterase Test strip Ql (U) Negative Negative [facility] Urine pHOrdered By: Dr. Odette vargas on 10-03-2022 pH (U) 7.0 [pH] 5.0 - 8.0 [facility] Urine sediment bacteria coun t by microscopy (number/high power field)Ordered By: Dr. Hankins on 10-03-2022 Bacteria LM.HPF (Urine sed) [#/Area] 0 /[HPF] None Seen [facility] Urine specific gravity measu rementOrdered By: Dr. Hankins on 10-03-2022 Specific gravity (U) [Rel density] 1.010 1.002-1.030 [facility] Urobilinogen Auto test strip Ql (U)Ordered By: Dr. Hankins on 10-03-2022 Urobilinogen Ql (U) Normal mg/dl Normal [facility] Absolute lymphocyte countOrd ered By: Dr. Quintana on 09-02-2022 Lymphocytes Auto (Unsp spec) [#/Vol] 3.98 10*3/uL 0.83-4.51 [facility] Basophil percentageOrdered B y: Dr. Quintana on 09-02-2022 Basophil percentage 0-5 SEEN /hpf 0-5 [facility] Basophils/100 WBC (Bld) 0.7 % 0-1 [facility] Bilirubin [Mass/Vol] 0.20 mg/dL 0.20-1.00 [facility] Comment on above: For patients on eltr ombopag therapy, use of Dimension [place] TBIL is not recommended. Chloride [Moles/Vol] 106 mmol/L 98-107 [facility] Eosinophils/100 WBC (Bld) 2.4 % 0-5 [facility] Glucose [Mass/Vol] 107 mg/dL 74-106 [facility] Comment on above: Fasting Glucose resu lt from 100 to 125 mg/dL suggests IMPAIRED HOMEOSTASIS per A.D.A. criteria. Neutrophils (Bld) [#/Vol] 7.1 10*3/uL 2.0-7.7 [facility] Neutrophils/100 WBC (Bld) 58.5 % 47-70 [facility] Potassium [Moles/Vol] 3.5 mmol/L 3.5-5.1 [facility] [facility] Protein [Mass/Vol] 7.0 g/dL 6.4-8.2 [facility] Sodium [Moles/Vol] 138 mmol/L 136-145 [facility] WBC (Bld) [#/Vol] 12.1 10*3/uL 4.4-11.0 [facility] Beta hCG serum qualOrdered B y: Dr. Quintana on 09-02-2022 Beta HCG ( test) Ql Negative [facility] Bilirubin Test strip Ql (U)O rdered By: Dr. Quintana on 09-02-2022 Bilirubin Ql (U) Negative Negative [facility] Blood erythrocytes count (nu mber/volume)Ordered By: Dr. Quintana on 09-02-2022 RBC (Bld) [#/Vol] 4.46 10*6/uL 4.2-5.4 [facility] Blood hemoglobin measurement (mass/volume)Ordered By: Dr. Quintana on 09-02-2022 Hemoglobin (Bld) [Mass/Vol] 13.2 g/dL 12.0-15.0 [facility] Blood lymphocytes/100 leukoc ytesOrdered By: Dr. Quintana on 09-02-2022 Lymphocytes/100 WBC (Bld) 32.8 % 19-41 [facility] Blood monocytes/100 leukocyt esOrdered By: Dr. Quintana on 09-02-2022 Monocytes/100 WBC (Bld) 5.2 % 0-10 [facility] Blood platelet mean volumeOr dered By: Dr. Quintana on 09-02-2022 Platelet mean volume (Bld) [Entitic vol] 9.5 fL 6.2-12.0 [facility] Determination of erythrocyte mean corpuscular volume (MCV)Ordered By: Dr. Quintana on 09-02-2022 MCV (RBC) [Entitic vol] 89.9 fL 81-99 [facility] Hematocrit Auto (Bld) [Volum e fraction]Ordered By: Dr. Quintana on 09-02-2022 Hematocrit (Bld) [Volume fraction] 40.1 % 37-47 [facility] Influenza virus A and B and SARS-CoV-2 (COVID-19) Ag panel - Upper respiratory specimOrdered By: Dr. Quintana on 09-02-2022 SARS-CoV-2 (COVID-19) RNA DEISY+probe Ql (Resp) [facility] Ketones Test strip Ql (U)Ord ered By: Dr. Quintana on 09-02-2022 Ketones Ql (U) Negative Negative [facility] Laboratory - Chemistry and C hemistry - challengeOrdered By: Dr. Quintana on 09-02-2022 ALP [Catalytic activity/Vol] 51 U/L 45-117 [facility] ALT [Catalytic activity/Vol] 15 U/L 13-56 [facility] CO2 [Moles/Vol] 28.0 mmol/L 21.0-32.0 [facility] Globulin (S) [Mass/Vol] 2.9 g/dL 2.2-4.2 [facility] Lipase [Catalytic activity/Vol] 120 U/L 73-393 [facility] Urea nitrogen/Creatinine [Mass ratio] 33.7 mg/mg 10-20 [facility] Laboratory - Hematology and Cell countsOrdered By: Dr. Quintana on 09-02-2022 Erythrocyte distribution width (RBC) [Entitic vol] 42.5 fL 35.1-43.9 [facility] Erythrocyte distribution width (RBC) [Ratio] 12.9 % 11.6-14.6 [facility] Immature granulocytes/100 WBC (Bld) 0.400 % 0.0-0.9 [facility] Comment on above: IG% - Immature Granu locytes (promyelocytes, myelocytes and metamyelocytes) > 1% indicates that a LEFT SHIFT is Present. MCH (RBC) [Entitic mass] 29.6 pg 27.0-32.0 [facility] Nucleated RBC/100 WBC (Bld) [Ratio] 0 % 0-5 [facility] MCHC Auto (RBC) [Mass/Vol]Or dered By: Dr. Quintana on 09-02-2022 MCHC (RBC) [Mass/Vol] 32.9 g/dL 32-36 [facility] Mucus LM Ql (Urine sed)Order ed By: Dr. Quintana on 09-02-2022 Mucus Ql (Urine sed) 0 SEEN /hpf [facility] Nitrite Test strip Ql (U)Ord ered By: Dr. Quintana on 09-02-2022 Nitrite Ql (U) Negative Negative [facility] No Panel InformationOrdered By: Dr. Quintana on 09-02-2022 Estimated Creatinine Clearance Calc 122.23 ml/min [facility] Estimated GFR (MDRD) Amer 158 mL/min >60 [facility] Comment on above: GFR Calc Estimated GFR (MDRD) Non-Af Amer 130 mL/min >60 [facility] Comment on above: Non- GFR Calc Platelets bldOrdered By: Dr. Quintana on 09-02-2022 Platelets (Bld) [#/Vol] 384 10*3/uL 150-450 [facility] Protein Test strip Ql (U)Ord ered By: Dr. Quintana on 09-02-2022 Protein Ql (U) Negative Negative [facility] Serum or plasma albumin caitie urement (mass/volume)Ordered By: Dr. Quintana on 09-02-2022 Albumin [Mass/Vol] 4.1 g/dL 3.2-5.0 [facility] Serum or plasma albumin/glob ulin mass ratioOrdered By: Dr. Quintana on 09-02-2022 Albumin/Globulin [Mass ratio] 1.4 {ratio} 0.9-2.4 [facility] Serum or plasma calcium caitie urement (mass/volume)Ordered By: Dr. Quintana on 09-02-2022 Calcium [Mass/Vol] 8.8 mg/dL 8.5-10.1 [facility] Serum or plasma creatinine m easurement (mass/volume)Ordered By: Dr. Quintana on 09-02-2022 Creatinine [Mass/Vol] 0.56 mg/dL 0.55-1.02 [facility] Comment on above: The validity of the calculated GFR & GFRAA in patients over 70 years has not been determined. Clinical correlation is essential. Serum or plasma urea nitroge n measurement (mass/volume)Ordered By: Dr. Quintana on 09-02-2022 Urea nitrogen [Mass/Vol] 19 mg/dL 7-18 [facility] Squamous epithelial cells de tection in urine sediment by light microscopyOrdered By: Dr. Quintana on 09-02-2022 Epithelial cells.squamous LM Ql (Urine sed) 0-5 SEEN /hpf 5-10 [facility] Thin prep Papanicolaou smear with manual screeningOrdered By: Dr. Quintana on 09-02-2022 Thin prep Papanicolaou smear with manual screening 9 U/L 15-37 [facility] Thin prep Papanicolaou smear with manual screening 4 5-15 [facility] Urine blood detectionOrdered By: Dr. Quintana on 09-02-2022 RBC Ql (U) 10 /ul Negative [facility] RBC Ql (U) 0-5 SEEN /hpf 0-5 [facility] Urine clarityOrdered By: Dr. Quintana on 09-02-2022 Clarity (U) Clear Clear [facility] Urine color determinationOrd ered By: Dr. Quintana on 09-02-2022 Color (U) Straw Yellow [facility] Urine glucose detectionOrder ed By: Dr. Quintana on 09-02-2022 Glucose Ql (U) Normal mg/dl Normal [facility] Urine leukocyte esterase det ection by dipstickOrdered By: Dr. Quintana on 09-02-2022 Leukocyte esterase Test strip Ql (U) 25 /ul Negative [facility] Urine pHOrdered By: Dr. Michael lima on 09-02-2022 pH (U) 7.0 [pH] 5.0 - 8.0 [facility] Urine sediment bacteria coun t by microscopy (number/high power field)Ordered By: Dr. Quintana on 09-02-2022 Bacteria LM.HPF (Urine sed) [#/Area] 0 /[HPF] None Seen [facility] Urine specific gravity measu rementOrdered By: Dr. Quintana on 09-02-2022 Specific gravity (U) [Rel density] 1.005 1.002-1.030 [facility] Urobilinogen Auto test strip Ql (U)Ordered By: Dr. Quintana on 09-02-2022 Urobilinogen Ql (U) Normal mg/dl Normal [facility] Basophil percentageOrdered B y: Dr. Hankins on 08-14-2022 Basophil percentage 0 SEEN /hpf 0-5 [facility] Bilirubin Test strip Ql (U)O rdered By: Dr. Hankins on 08-14-2022 Bilirubin Ql (U) Negative Negative [facility] Influenza virus A and B and SARS-CoV-2 (COVID-19) Ag panel - Upper respiratory specimOrdered By: Dr. Hankins on 08-14-2022 SARS-CoV-2 (COVID-19) RNA DEISY+probe Ql (Resp) [facility] Ketones Test strip Ql (U)Ord ered By: Dr. Hankins on 08-14-2022 Ketones Ql (U) Negative Negative [facility] Mucus LM Ql (Urine sed)Order ed By: Dr. Hankins on 08-14-2022 Mucus Ql (Urine sed) 0 SEEN /hpf [facility] Nitrite Test strip Ql (U)Ord ered By: Dr. Hankins on 08-14-2022 Nitrite Ql (U) Negative Negative [facility] Protein Test strip Ql (U)Ord ered By: Dr. Hankins on 08-14-2022 Protein Ql (U) Negative Negative [facility] Squamous epithelial cells de tection in urine sediment by light microscopyOrdered By: Dr. Hankins on 08-14-2022 Epithelial cells.squamous LM Ql (Urine sed) 0 SEEN /hpf 5-10 [facility] Urine blood detectionOrdered By: Dr. Hankins on 08-14-2022 RBC Ql (U) 10 /ul Negative [facility] RBC Ql (U) 0 SEEN /hpf 0-5 [facility] Urine clarityOrdered By: Dr. Hankins on 08-14-2022 Clarity (U) Clear Clear [facility] Urine color determinationOrd ered By: Dr. Hankins on 08-14-2022 Color (U) Straw Yellow [facility] Urine glucose detectionOrder ed By: Dr. Hankins on 08-14-2022 Glucose Ql (U) Normal mg/dl Normal [facility] Urine leukocyte esterase det ection by dipstickOrdered By: Dr. Hankins on 08-14-2022 Leukocyte esterase Test strip Ql (U) 25 /ul Negative [facility] Urine pHOrdered By: Dr. Odette vargas on 08-14-2022 pH (U) 6.5 [pH] 5.0 - 8.0 [facility] Urine sediment bacteria coun t by microscopy (number/high power field)Ordered By: Dr. Hankins on 08-14-2022 Bacteria LM.HPF (Urine sed) [#/Area] 0 /[HPF] None Seen [facility] Urine specific gravity measu rementOrdered By: Dr. Hankins on 08-14-2022 Specific gravity (U) [Rel density] 1.005 1.002-1.030 [facility] Urobilinogen Auto test strip Ql (U)Ordered By: Dr. Hankins on 08-14-2022 Urobilinogen Ql (U) Normal mg/dl Normal [facility] Absolute lymphocyte countOrd ered By: ED PROVIDER on 08-08-2022 Lymphocytes Auto (Unsp spec) [#/Vol] 0.66 10*3/uL 0.83-4.51 [facility] Basophil percentageOrdered B y: Dr. Lux on 08-08-2022 Basophil percentage 0 SEEN /hpf 0-5 [facility] Bilirubin [Mass/Vol] 0.20 mg/dL 0.20-1.00 [facility] Comment on above: For patients on eltr ombopag therapy, use of Dimension [place] TBIL is not recommended. Protein [Mass/Vol] 7.1 g/dL 6.4-8.2 [facility] Basophil percentageOrdered B y: ED PROVIDER on 08-08-2022 Basophils/100 WBC (Bld) 0.8 % 0-1 [facility] Chloride [Moles/Vol] 110 mmol/L 98-107 [facility] Eosinophils/100 WBC (Bld) 2.0 % 0-5 [facility] Glucose [Mass/Vol] 96 mg/dL 74-106 [facility] Neutrophils (Bld) [#/Vol] 6.0 10*3/uL 2.0-7.7 [facility] Neutrophils/100 WBC (Bld) 78.1 % 47-70 [facility] Potassium [Moles/Vol] 3.9 mmol/L 3.5-5.1 [facility] Sodium [Moles/Vol] 139 mmol/L 136-145 [facility] WBC (Bld) [#/Vol] 7.7 10*3/uL 4.4-11.0 [facility] Beta hCG serum qualOrdered B y: Dr. Lux on 08-08-2022 Beta HCG ( test) Ql Negative [facility] Bilirubin Test strip Ql (U)O rdered By: Dr. Lux on 08-08-2022 Bilirubin Ql (U) Negative Negative [facility] Blood erythrocytes count (nu mber/volume)Ordered By: ED PROVIDER on 08-08-2022 RBC (Bld) [#/Vol] 4.39 10*6/uL 4.2-5.4 [facility] Blood hemoglobin measurement (mass/volume)Ordered By: ED PROVIDER on 08-08-2022 Hemoglobin (Bld) [Mass/Vol] 12.9 g/dL 12.0-15.0 [facility] Blood lymphocytes/100 leukoc ytesOrdered By: ED PROVIDER on 08-08-2022 Lymphocytes/100 WBC (Bld) 8.6 % 19-41 [facility] Blood monocytes/100 leukocyt esOrdered By: ED PROVIDER on 08-08-2022 Monocytes/100 WBC (Bld) 9.7 % 0-10 [facility] Blood platelet mean volumeOr dered By: ED PROVIDER on 08-08-2022 Platelet mean volume (Bld) [Entitic vol] 9.7 fL 6.2-12.0 [facility] Determination of erythrocyte mean corpuscular volume (MCV)Ordered By: ED PROVIDER on 08-08-2022 MCV (RBC) [Entitic vol] 87.5 fL 81-99 [facility] Direct bilirubinOrdered By: Dr. Lux on 08-08-2022 Bilirubin.direct [Mass/Vol] 0.07 mg/dL 0.00-0.30 [facility] Hematocrit Auto (Bld) [Volum e fraction]Ordered By: ED PROVIDER on 08-08-2022 Hematocrit (Bld) [Volume fraction] 38.4 % 37-47 [facility] Ketones Test strip Ql (U)Ord ered By: Dr. Lux on 08-08-2022 Ketones Ql (U) Negative Negative [facility] Laboratory - Chemistry and C hemistry - challengeOrdered By: Dr. Lux on 08-08-2022 ALP [Catalytic activity/Vol] 53 U/L 45-117 [facility] ALT [Catalytic activity/Vol] 22 U/L 13-56 [facility] Globulin (S) [Mass/Vol] 3.1 g/dL 2.2-4.2 [facility] Lipase [Catalytic activity/Vol] 123 U/L 73-393 [facility] Laboratory - Chemistry and C hemistry - challengeOrdered By: ED PROVIDER on 08-08-2022 CO2 [Moles/Vol] 27.0 mmol/L 21.0-32.0 [facility] Urea nitrogen/Creatinine [Mass ratio] 20.0 mg/mg 10-20 [facility] Laboratory - Hematology and Cell countsOrdered By: ED PROVIDER on 08-08-2022 Erythrocyte distribution width (RBC) [Entitic vol] 43.1 fL 35.1-43.9 [facility] Erythrocyte distribution width (RBC) [Ratio] 13.5 % 11.6-14.6 [facility] Immature granulocytes/100 WBC (Bld) 0.800 % 0.0-0.9 [facility] Comment on above: IG% - Immature Granu locytes (promyelocytes, myelocytes and metamyelocytes) > 1% indicates that a LEFT SHIFT is Present. MCH (RBC) [Entitic mass] 29.4 pg 27.0-32.0 [facility] Nucleated RBC/100 WBC (Bld) [Ratio] 0 % 0-5 [facility] MCHC Auto (RBC) [Mass/Vol]Or dered By: ED PROVIDER on 08-08-2022 MCHC (RBC) [Mass/Vol] 33.6 g/dL 32-36 [facility] Mucus LM Ql (Urine sed)Order ed By: Dr. Lux on 08-08-2022 Mucus Ql (Urine sed) 0 SEEN /hpf [facility] Nitrite Test strip Ql (U)Ord ered By: Dr. Lux on 08-08-2022 Nitrite Ql (U) Negative Negative [facility] No Panel InformationOrdered By: ED PROVIDER on 08-08-2022 Estimated Creatinine Clearance Calc 105.31 ml/min [facility] Estimated GFR (MDRD) Amer 134 mL/min >60 [facility] Comment on above: GFR Calc Estimated GFR (MDRD) Non-Af Amer 111 mL/min >60 [facility] Comment on above: Non- GFR Calc Platelets bldOrdered By: ED PROVIDER on 08-08-2022 Platelets (Bld) [#/Vol] 305 10*3/uL 150-450 [facility] Protein Test strip Ql (U)Ord ered By: Dr. Lux on 08-08-2022 Protein Ql (U) Negative Negative [facility] Serum or plasma albumin caitie urement (mass/volume)Ordered By: Dr. Lux on 08-08-2022 Albumin [Mass/Vol] 4.0 g/dL 3.2-5.0 [facility] Serum or plasma calcium caitie urement (mass/volume)Ordered By: ED PROVIDER on 08-08-2022 Calcium [Mass/Vol] 9.0 mg/dL 8.5-10.1 [facility] Serum or plasma creatinine m easurement (mass/volume)Ordered By: ED PROVIDER on 08-08-2022 Creatinine [Mass/Vol] 0.65 mg/dL 0.55-1.02 [facility] Comment on above: The validity of the calculated GFR & GFRAA in patients over 70 years has not been determined. Clinical correlation is essential. Serum or plasma urea nitroge n measurement (mass/volume)Ordered By: ED PROVIDER on 08-08-2022 Urea nitrogen [Mass/Vol] 13 mg/dL 7-18 [facility] Squamous epithelial cells de tection in urine sediment by light microscopyOrdered By: Dr. Lux on 08-08-2022 Epithelial cells.squamous LM Ql (Urine sed) 0-5 SEEN /hpf 5-10 [facility] Thin prep Papanicolaou smear with manual screeningOrdered By: Dr. Lux on 08-08-2022 Thin prep Papanicolaou smear with manual screening 14 U/L 15-37 [facility] Thin prep Papanicolaou smear with manual screeningOrdered By: ED PROVIDER on 08-08-2022 Thin prep Papanicolaou smear with manual screening 2 5-15 [facility] Urine blood detectionOrdered By: Dr. Lux on 08-08-2022 RBC Ql (U) 150 /ul Negative [facility] RBC Ql (U) 5-10 SEEN /hpf 0-5 [facility] Urine clarityOrdered By: Dr. Lux on 08-08-2022 Clarity (U) Sl. Cloudy Clear [facility] Urine color determinationOrd ered By: Dr. Lux on 08-08-2022 Color (U) Yellow Yellow [facility] Urine glucose detectionOrder ed By: Dr. Lux on 08-08-2022 Glucose Ql (U) Normal mg/dl Normal [facility] Urine leukocyte esterase det ection by dipstickOrdered By: Dr. Lux on 08-08-2022 Leukocyte esterase Test strip Ql (U) Negative Negative [facility] Urine pHOrdered By: Dr. Lux o n 08-08-2022 pH (U) 6.0 [pH] 5.0 - 8.0 [facility] Urine sediment bacteria coun t by microscopy (number/high power field)Ordered By: Dr. Lux on 08-08-2022 Bacteria LM.HPF (Urine sed) [#/Area] 0 /[HPF] None Seen [facility] Urine sediment unidentified crystal count by microscopy (number/high powered field)Ordered By: Dr. Lux on 08-08-2022 Unidentified crystals LM.HPF (Urine sed) [#/Area] STARCH /hpf None Seen [facility] Urine specific gravity measu rementOrdered By: Dr. Lux on 08-08-2022 Specific gravity (U) [Rel density] 1.015 1.002-1.030 [facility] Urobilinogen Auto test strip Ql (U)Ordered By: Dr. Lux on 08-08-2022 Urobilinogen Ql (U) Normal mg/dl Normal [facility] Absolute lymphocyte counton 05-16-2022 Lymphocytes Auto (Unsp spec) [#/Vol] 3.82 10*3/uL 0.83-4.51 [facility] Work Phone: Basophil percentageon 2021 Basophil percentage 0 SEEN /hpf 0-5 [facility] Work Phone: Basophils/100 WBC (Bld) 0.9 % 0-1 [facility] Work Phone: Bilirubin [Mass/Vol] 0.30 mg/dL 0.20-1.00 [facility] Work Phone: Comment on above: For patients on eltr ombopag therapy, use of Dimension [place] TBIL is not recommended. Chloride [Moles/Vol] 109 mmol/L 98-107 [facility] Work Phone: Eosinophils/100 WBC (Bld) 3.2 % 0-5 [facility] Work Phone: [phone] Glucose [Mass/Vol] 94 mg/dL 74-106 [facility] Work Phone: [phone] Neutrophils (Bld) [#/Vol] 4.8 10*3/uL 2.0-7.7 [facility] Work Phone: [phone] Neutrophils/100 WBC (Bld) 49.6 % 47-70 [facility] Work Phone: Potassium [Moles/Vol] 3.5 mmol/L 3.5-5.1 [facility] Work Phone: [phone] Protein [Mass/Vol] 7.0 g/dL 6.4-8.2 [facility] Work Phone: [phone] Sodium [Moles/Vol] 140 mmol/L 136-145 [facility] Work Phone: [phone] WBC (Bld) [#/Vol] 9.8 10*3/uL 4.4-11.0 [facility] Work Phone: Beta hCG serum qualon 2021 Beta HCG ( test) Ql Negative [facility] Work Phone: Bilirubin Test strip Ql (U)o n 05-16-2022 Bilirubin Ql (U) Negative Negative [facility] Work Phone: Blood erythrocytes count (nu mber/volume)on 05-16-2022 RBC (Bld) [#/Vol] 4.56 10*6/uL 4.2-5.4 [facility] Work Phone: [phone] Blood hemoglobin measurement (mass/volume)on 05-16-2022 Hemoglobin (Bld) [Mass/Vol] 13.5 g/dL 12.0-15.0 [facility] Work Phone: Blood lymphocytes/100 leukoc yteson 05-16-2022 Lymphocytes/100 WBC (Bld) 39.1 % 19-41 [facility] Work Phone: Blood monocytes/100 leukocyt eson 05-16-2022 Monocytes/100 WBC (Bld) 6.7 % 0-10 [facility] Work Phone: Blood platelet mean volumeon 05-16-2022 Platelet mean volume (Bld) [Entitic vol] 10.5 fL 6.2-12.0 [facility] Work Phone: Determination of erythrocyte mean corpuscular volume (MCV)on 05-16-2022 MCV (RBC) [Entitic vol] 89.7 fL 81-99 [facility] Work Phone: Hematocrit Auto (Bld) [Volum e fraction]on 05-16-2022 Hematocrit (Bld) [Volume fraction] 40.9 % 37-47 [facility] Work Phone: Ketones Test strip Ql (U)on 05-16-2022 Ketones Ql (U) Negative Negative [facility] Work Phone: Laboratory - Chemistry and C hemistry - challengeon 05-16-2022 ALP [Catalytic activity/Vol] 52 U/L 45-117 [facility] Work Phone: ALT [Catalytic activity/Vol] 12 U/L 13-56 [facility] Work Phone: CO2 [Moles/Vol] 24.0 mmol/L 21.0-32.0 [facility] Work Phone: Globulin (S) [Mass/Vol] 3.0 g/dL 2.2-4.2 [facility] Work Phone: Lipase [Catalytic activity/Vol] 170 U/L 73-393 [facility] Work Phone: Urea nitrogen/Creatinine [Mass ratio] 24.9 mg/mg 10-20 [facility] Work Phone: Laboratory - Hematology and Cell countson 05-16-2022 Erythrocyte distribution width (RBC) [Entitic vol] 44.3 fL 35.1-43.9 [facility] Work Phone: Erythrocyte distribution width (RBC) [Ratio] 13.4 % 11.6-14.6 [facility] Work Phone: Immature granulocytes/100 WBC (Bld) 0.500 % 0.0-0.9 [facility] Work Phone: Comment on above: IG% - Immature Granu locytes (promyelocytes, myelocytes and metamyelocytes) > 1% indicates that a LEFT SHIFT is Present. MCH (RBC) [Entitic mass] 29.6 pg 27.0-32.0 [facility] Work Phone: Nucleated RBC/100 WBC (Bld) [Ratio] 0 % 0-5 [facility] Work Phone: MCHC Auto (RBC) [Mass/Vol]on 05-16-2022 MCHC (RBC) [Mass/Vol] 33.0 g/dL 32-36 [facility] Work Phone: Mucus LM Ql (Urine sed)on Mucus Ql (Urine sed) 0 SEEN /hpf [facility] Work Phone: Nitrite Test strip Ql (U)on 05-16-2022 Nitrite Ql (U) Negative Negative [facility] Work Phone: No Panel Informationon 05-16 Estimated Creatinine Clearance Calc 114.08 ml/min [facility] Work Phone: Estimated GFR (MDRD) Amer 146 mL/min >60 [facility] Work Phone: Comment on above: GFR Calc Estimated GFR (MDRD) Non-Af Amer 121 mL/min >60 [facility] Work Phone: Comment on above: Non- GFR Calc Platelets bldon 05-16-2022 Platelets (Bld) [#/Vol] 434 10*3/uL 150-450 [facility] Work Phone: Protein Test strip Ql (U)on 05-16-2022 Protein Ql (U) Negative Negative [facility] Work Phone: Serum or plasma albumin caitie urement (mass/volume)on 05-16-2022 Albumin [Mass/Vol] 4.0 g/dL 3.2-5.0 [facility] Work Phone: Serum or plasma albumin/glob ulin mass ratioon 05-16-2022 Albumin/Globulin [Mass ratio] 1.3 {ratio} 0.9-2.4 [facility] Work Phone: Serum or plasma calcium caitie urement (mass/volume)on 05-16-2022 Calcium [Mass/Vol] 9.0 mg/dL 8.5-10.1 [facility] Work Phone: Serum or plasma creatinine m easurement (mass/volume)on 05-16-2022 Creatinine [Mass/Vol] 0.60 mg/dL 0.55-1.02 [facility] Work Phone: Comment on above: The validity of the calculated GFR & GFRAA in patients over 70 years has not been determined. Clinical correlation is essential. Serum or plasma urea nitroge n measurement (mass/volume)on 05-16-2022 Urea nitrogen [Mass/Vol] 15 mg/dL 7-18 [facility] Work Phone: Squamous epithelial cells de tection in urine sediment by light microscopyon 05-16-2022 Epithelial cells.squamous LM Ql (Urine sed) 0-5 SEEN /hpf 5-10 [facility] Work Phone: Thin prep Papanicolaou smear with manual screeningon 05-16-2022 Thin prep Papanicolaou smear with manual screening 8 U/L 15-37 [facility] Work Phone: Thin prep Papanicolaou smear with manual screening 7 5-15 [facility] Work Phone: Urine blood detectionon 05-03 RBC Ql (U) 25 /ul Negative [facility] Work Phone: RBC Ql (U) 0 SEEN /hpf 0-5 [facility] Work Phone: Urine clarityon 05-16-2022 Clarity (U) Clear Clear [facility] Work Phone: Urine color determinationon 05-16-2022 Color (U) Straw Yellow [facility] Work Phone: Urine glucose detectionon Glucose Ql (U) Normal mg/dl Normal [facility] Work Phone: Urine leukocyte esterase det ection by dipstickon 05-16-2022 Leukocyte esterase Test strip Ql (U) Negative Negative [facility] Work Phone: Urine pHon 05-16-2022 pH (U) 7.0 [pH] 5.0 - 8.0 [facility] Work Phone: Urine sediment bacteria coun t by microscopy (number/high power field)on 05-16-2022 Bacteria LM.HPF (Urine sed) [#/Area] 1 /[HPF] None Seen [facility] Work Phone: Urine specific gravity measu rementon 05-16-2022 Specific gravity (U) [Rel density] 1.005 1.002-1.030 [facility] Work Phone: Urobilinogen Auto test strip Ql (U)on 05-16-2022 Urobilinogen Ql (U) Normal mg/dl Normal [facility] Work Phone: Absolute lymphocyte counton 04-19-2022 Lymphocytes Auto (Unsp spec) [#/Vol] 3.81 10*3/uL 0.83-4.51 [facility] Work Phone: Basophil percentageon 2021 Basophils/100 WBC (Bld) 0.7 % 0-1 [facility] Work Phone: Eosinophils/100 WBC (Bld) 1.7 % 0-5 [facility] Work Phone: Neutrophils (Bld) [#/Vol] 9.0 10*3/uL 2.0-7.7 [facility] Work Phone: Neutrophils/100 WBC (Bld) 64.6 % 47-70 [facility] Work Phone: WBC (Bld) [#/Vol] 13.9 10*3/uL 4.4-11.0 [facility] Work Phone: Beta hCG serum qualon 2021 Beta HCG ( test) Ql Negative [facility] Work Phone: Blood erythrocytes count (nu mber/volume)on 04-19-2022 RBC (Bld) [#/Vol] 4.47 10*6/uL 4.2-5.4 [facility] Work Phone: Blood hemoglobin measurement (mass/volume)on 04-19-2022 Hemoglobin (Bld) [Mass/Vol] 13.6 g/dL 12.0-15.0 [facility] Work Phone: [phone] Blood lymphocytes/100 leukoc yteson 04-19-2022 Lymphocytes/100 WBC (Bld) 27.4 % 19-41 [facility] Work Phone: Blood monocytes/100 leukocyt eson 04-19-2022 Monocytes/100 WBC (Bld) 5.3 % 0-10 [facility] Work Phone: Blood platelet mean volumeon 04-19-2022 Platelet mean volume (Bld) [Entitic vol] 9.9 fL 6.2-12.0 [facility] Work Phone: Determination of erythrocyte mean corpuscular volume (MCV)on 04-19-2022 MCV (RBC) [Entitic vol] 88.4 fL 81-99 [facility] Work Phone: Hematocrit Auto (Bld) [Volum e fraction]on 04-19-2022 Hematocrit (Bld) [Volume fraction] 39.5 % 37-47 [facility] Work Phone: Laboratory - Hematology and Cell countson 04-19-2022 Erythrocyte distribution width (RBC) [Entitic vol] 43.8 fL 35.1-43.9 [facility] Work Phone: Erythrocyte distribution width (RBC) [Ratio] 13.5 % 11.6-14.6 [facility] [facility] Work Phone: [phone] Immature granulocytes/100 WBC (Bld) 0.300 % 0.0-0.9 [facility] Work Phone: [phone] Comment on above: IG% - Immature Granu locytes (promyelocytes, myelocytes and metamyelocytes) > 1% indicates that a LEFT SHIFT is Present. MCH (RBC) [Entitic mass] 30.4 pg 27.0-32.0 [facility] Work Phone: Nucleated RBC/100 WBC (Bld) [Ratio] 0 % 0-5 [facility] Work Phone: MCHC Auto (RBC) [Mass/Vol]on 04-19-2022 MCHC (RBC) [Mass/Vol] 34.4 g/dL 32-36 [facility] Work Phone: Platelets bldon 04-19-2022 Platelets (Bld) [#/Vol] 391 10*3/uL 150-450 [facility] Work Phone: Absolute lymphocyte counton 03-27-2022 Lymphocytes Auto (Unsp spec) [#/Vol] 4.45 10*3/uL 0.83-4.51 [facility] Work Phone: Basophil percentageon 2021 Basophils/100 WBC (Bld) 0.9 % 0-1 [facility] Work Phone: Bilirubin [Mass/Vol] 0.30 mg/dL 0.20-1.00 [facility] Work Phone: Comment on above: For patients on eltr ombopag therapy, use of Dimension [place] TBIL is not recommended. Chloride [Moles/Vol] 110 mmol/L 98-107 [facility] Work Phone: Eosinophils/100 WBC (Bld) 2.0 % 0-5 [facility] Work Phone: Glucose [Mass/Vol] 90 mg/dL 74-106 [facility] Work Phone: Neutrophils (Bld) [#/Vol] 4.0 10*3/uL 2.0-7.7 [facility] Work Phone: Neutrophils/100 WBC (Bld) 42.4 % 47-70 [facility] Work Phone: Potassium [Moles/Vol] 3.6 mmol/L 3.5-5.1 [facility] Work Phone: Protein [Mass/Vol] 7.1 g/dL 6.4-8.2 [facility] Work Phone: [phone] Sodium [Moles/Vol] 139 mmol/L 136-145 [facility] Work Phone: WBC (Bld) [#/Vol] 9.3 10*3/uL 4.4-11.0 [facility] Work Phone: Beta hCG serum qualon 2021 Beta HCG ( test) Ql Negative [facility] Work Phone: [phone] Blood erythrocytes count (nu mber/volume)on 03-27-2022 RBC (Bld) [#/Vol] 4.73 10*6/uL 4.2-5.4 [facility] Work Phone: Blood hemoglobin measurement (mass/volume)on 03-27-2022 Hemoglobin (Bld) [Mass/Vol] 14.2 g/dL 12.0-15.0 [facility] Work Phone: Blood lymphocytes/100 leukoc yteson 03-27-2022 Lymphocytes/100 WBC (Bld) 47.7 % 19-41 [facility] Work Phone: Blood monocytes/100 leukocyt eson 03-27-2022 Monocytes/100 WBC (Bld) 6.8 % 0-10 [facility] Work Phone: Blood platelet mean volumeon 03-27-2022 Platelet mean volume (Bld) [Entitic vol] 10.0 fL 6.2-12.0 [facility] Work Phone: Determination of erythrocyte mean corpuscular volume (MCV)on 03-27-2022 MCV (RBC) [Entitic vol] 88.2 fL 81-99 [facility] Work Phone: Hematocrit Auto (Bld) [Volum e fraction]on 03-27-2022 Hematocrit (Bld) [Volume fraction] 41.7 % 37-47 [facility] Work Phone: Laboratory - Chemistry and C hemistry - challengeon 03-27-2022 ALP [Catalytic activity/Vol] 49 U/L 45-117 [facility] Work Phone: ALT [Catalytic activity/Vol] 11 U/L 13-56 [facility] Work Phone: CO2 [Moles/Vol] 25.0 mmol/L 21.0-32.0 [facility] Work Phone: Globulin (S) [Mass/Vol] 3.0 g/dL 2.2-4.2 [facility] Work Phone: Lipase [Catalytic activity/Vol] 143 U/L 73-393 [facility] Work Phone: Urea nitrogen/Creatinine [Mass ratio] 19.7 mg/mg 10-20 [facility] Work Phone: Laboratory - Hematology and Cell countson 03-27-2022 Erythrocyte distribution width (RBC) [Entitic vol] 42.9 fL 35.1-43.9 [facility] Work Phone: Erythrocyte distribution width (RBC) [Ratio] 13.2 % 11.6-14.6 [facility] Work Phone: [phone] Immature granulocytes/100 WBC (Bld) 0.200 % 0.0-0.9 [facility] Work Phone: Comment on above: IG% - Immature Granu locytes (promyelocytes, myelocytes and metamyelocytes) > 1% indicates that a LEFT SHIFT is Present. MCH (RBC) [Entitic mass] 30.0 pg 27.0-32.0 [facility] Work Phone: Nucleated RBC/100 WBC (Bld) [Ratio] 0 % 0-5 [facility] Work Phone: MCHC Auto (RBC) [Mass/Vol]on 03-27-2022 MCHC (RBC) [Mass/Vol] 34.1 g/dL 32-36 [facility] Work Phone: No Panel Informationon 03-27 Estimated Creatinine Clearance Calc 103.71 ml/min [facility] Work Phone: Estimated GFR (MDRD) Amer 132 mL/min >60 [facility] Work Phone: Comment on above: GFR Calc Estimated GFR (MDRD) Non-Af Amer 109 mL/min >60 [facility] Work Phone: Comment on above: Non- GFR Calc Platelets bldon 03-27-2022 Platelets (Bld) [#/Vol] 407 10*3/uL 150-450 [facility] Work Phone: Serum or plasma albumin caitie urement (mass/volume)on 03-27-2022 Albumin [Mass/Vol] 4.1 g/dL 3.2-5.0 [facility] Work Phone: Serum or plasma albumin/glob ulin mass ratioon 03-27-2022 Albumin/Globulin [Mass ratio] 1.4 {ratio} 0.9-2.4 [facility] Work Phone: Serum or plasma calcium caitie urement (mass/volume)on 03-27-2022 Calcium [Mass/Vol] 9.6 mg/dL 8.5-10.1 [facility] Work Phone: Serum or plasma creatinine m easurement (mass/volume)on 03-27-2022 Creatinine [Mass/Vol] 0.66 mg/dL 0.55-1.02 [facility] Work Phone: Comment on above: The validity of the calculated GFR & GFRAA in patients over 70 years has not been determined. Clinical correlation is essential. Serum or plasma urea nitroge n measurement (mass/volume)on 03-27-2022 Urea nitrogen [Mass/Vol] 13 mg/dL 7-18 [facility] Work Phone: [phone] Thin prep Papanicolaou smear with manual screeningon 03-27-2022 Thin prep Papanicolaou smear with manual screening 10 U/L 15-37 [facility] Work Phone: Thin prep Papanicolaou smear with manual screening 4 5-15 [facility] Work Phone: NM GASTRIC EMPTYING SOLIDon 01-16-2022 [facility] HCG QUAL URon 01-08-2022 HCG ( test) Ql (U) Negative Negative [facility] Absolute lymphocyte counton 11-22-2021 Lymphocytes Auto (Unsp spec) [#/Vol] 4.21 10*3/uL 0.83-4.51 [facility] Work Phone: Basophil percentageon 2021 Basophils/100 WBC (Bld) 0.7 % 0-1 [facility] Work Phone: Chloride [Moles/Vol] 109 mmol/L 98-107 [facility] Work Phone: Eosinophils/100 WBC (Bld) 2.8 % 0-5 [facility] Work Phone: [phone] Glucose [Mass/Vol] 100 mg/dL 74-106 [facility] Work Phone: Comment on above: Fasting Glucose resu lt from 100 to 125 mg/dL suggests IMPAIRED HOMEOSTASIS per A.D.A. criteria. Neutrophils (Bld) [#/Vol] 5.4 10*3/uL 2.0-7.7 [facility] Work Phone: Neutrophils/100 WBC (Bld) 50.8 % 47-70 [facility] Work Phone: [phone] Potassium [Moles/Vol] 3.6 mmol/L 3.5-5.1 [facility] Work Phone: Sodium [Moles/Vol] 140 mmol/L 136-145 [facility] Work Phone: WBC (Bld) [#/Vol] 10.7 10*3/uL 4.4-11.0 [facility] Work Phone: Bilirubin Test strip Ql (U)o n 11-22-2021 Bilirubin Ql (U) Negative Negative [facility] Work Phone: Blood erythrocytes count (nu mber/volume)on 11-22-2021 RBC (Bld) [#/Vol] 4.48 10*6/uL 4.2-5.4 [facility] Work Phone: Blood hemoglobin measurement (mass/volume)on 11-22-2021 Hemoglobin (Bld) [Mass/Vol] 13.6 g/dL 12.0-15.0 [facility] Work Phone: Blood lymphocytes/100 leukoc yteson 11-22-2021 Lymphocytes/100 WBC (Bld) 39.4 % 19-41 [facility] Work Phone: Blood monocytes/100 leukocyt eson 11-22-2021 Monocytes/100 WBC (Bld) 6.0 % 0-10 [facility] Work Phone: Blood platelet mean volumeon 11-22-2021 Platelet mean volume (Bld) [Entitic vol] 9.8 fL 6.2-12.0 [facility] Work Phone: Determination of erythrocyte mean corpuscular volume (MCV)on 11-22-2021 MCV (RBC) [Entitic vol] 85.5 fL 81-99 [facility] Work Phone: Hematocrit Auto (Bld) [Volum e fraction]on 11-22-2021 Hematocrit (Bld) [Volume fraction] 38.3 % 37-47 [facility] Work Phone: Ketones Test strip Ql (U)on 11-22-2021 Ketones Ql (U) Negative Negative [facility] Work Phone: Laboratory - Chemistry and C hemistry - challengeon 11-22-2021 CO2 [Moles/Vol] 25.0 mmol/L 21.0-32.0 [facility] Work Phone: Urea nitrogen/Creatinine [Mass ratio] 22.0 mg/mg 10-20 [facility] Work Phone: Laboratory - Hematology and Cell countson 11-22-2021 Erythrocyte distribution width (RBC) [Entitic vol] 41.6 fL 35.1-43.9 [facility] Work Phone: Erythrocyte distribution width (RBC) [Ratio] 13.2 % 11.6-14.6 [facility] Work Phone: Immature granulocytes/100 WBC (Bld) 0.300 % 0.0-0.9 [facility] Work Phone: Comment on above: IG% - Immature Granu locytes (promyelocytes, myelocytes and metamyelocytes) > 1% indicates that a LEFT SHIFT is Present. MCH (RBC) [Entitic mass] 30.4 pg 27.0-32.0 [facility] Work Phone: Nucleated RBC/100 WBC (Bld) [Ratio] 0 % 0-5 [facility] Work Phone: MCHC Auto (RBC) [Mass/Vol]on 11-22-2021 MCHC (RBC) [Mass/Vol] 35.5 g/dL 32-36 [facility] Work Phone: Nitrite Test strip Ql (U)on 11-22-2021 Nitrite Ql (U) Negative Negative [facility] Work Phone: No Panel Informationon 11-22 Estimated Creatinine Clearance Calc 101.61 ml/min [facility] Work Phone: Estimated GFR (MDRD) Amer 127 mL/min >60 [facility] Work Phone: Comment on above: GFR Calc Estimated GFR (MDRD) Non-Af Amer 105 mL/min >60 [facility] Work Phone: Comment on above: Non- GFR Calc Platelets bldon 11-22-2021 Platelets (Bld) [#/Vol] 380 10*3/uL 150-450 [facility] Work Phone: Protein Test strip Ql (U)on 11-22-2021 Protein Ql (U) Negative Negative [facility] Work Phone: Serum or plasma calcium caitie urement (mass/volume)on 11-22-2021 Calcium [Mass/Vol] 9.2 mg/dL 8.5-10.1 [facility] Work Phone: Serum or plasma creatinine m easurement (mass/volume)on 11-22-2021 Creatinine [Mass/Vol] 0.68 mg/dL 0.55-1.02 [facility] Work Phone: Comment on above: The validity of the calculated GFR & GFRAA in patients over 70 years has not been determined. Clinical correlation is essential. Serum or plasma urea nitroge n measurement (mass/volume)on 11-22-2021 Urea nitrogen [Mass/Vol] 15 mg/dL 7-18 [facility] Work Phone: Thin prep Papanicolaou smear with manual screeningon 11-22-2021 Thin prep Papanicolaou smear with manual screening 6 5-15 [facility] Work Phone: Urine blood detectionon 11-01 RBC Ql (U) 25 /ul Negative [facility] Work Phone: Urine clarityon 11-22-2021 Clarity (U) Cloudy Clear [facility] Work Phone: Urine color determinationon 11-22-2021 Color (U) Yellow Yellow [facility] Work Phone: Urine glucose detectionon Glucose Ql (U) Normal mg/dl Normal [facility] Work Phone: Urine leukocyte esterase det ection by dipstickon 11-22-2021 Leukocyte esterase Test strip Ql (U) 25 /ul Negative [facility] Work Phone: Urine pHon 11-22-2021 pH (U) 6.0 [pH] [facility] Work Phone: Urine specific gravity measu rementon 11-22-2021 Specific gravity (U) [Rel density] 1.015 [facility] Work Phone: Urobilinogen Auto test strip Ql (U)on 11-22-2021 Urobilinogen Ql (U) Normal mg/dl Normal [facility] Work Phone: CR Spine Lumbosacral 4+ View son 05-22-2021 CR Spine Lumbosacral 4+ Views Patient Name: ARMIN VIVAS Diagnostic Radiology ACCESSION EXAM DATE/TIME PROCEDURE ORDERING PROVIDER [id number] 05/22/2021 16:02 EDT CR Spine Lumbosacral 4+ MD MARIA VICTORIA, AZAEL Michelle MELVINDALE CPT code 40409 Reason For Exam (CR Spine Lumbosacral 4+ Views) low back pain Report CLINICAL INFORMATION: Low back pain. Frontal, bilateral oblique , L5/S1 spot view and lateral views of the lumbar spine were obtained. There are 5 lumbar type vertebrae. Bone density appears normal. The vertebral heights are within normal limits. No spondylolisthesis or spondylolysis is noted. Moderate disc space narrowing at L4-L5 and L5-S1. Mild degenerative endplate changes at L4-L5 and L5-S1. No fracture is noted. IMPRESSION: Mild to moderate degenerative disc and endplate changes. No acute bony abnormality. Report Dictated on Final Dictating Physician: MD RIOS LAURA Signed Date and Time: 05/24/2021 8:52 am Signed by: MD RIOS LAURA Transcribed Date and Time: 05/24/2021 8:53 Normal [facility] CT ABD/PEL W IVCONon 08-25- 020 CT ABD/PEL W IVCON Final Report DATE OF EXAM: Aug 25 2020 8:29AM [facility] 0530 - CT ABD/PEL W IVCON / PROCEDURE REASON: Abdominal pain, unspecified abdominal location Physician Interpretation EXAMINATION: CT ABDOMEN AND PELVIS WITH IV CONTRAST CLINICAL HISTORY: Abdominal pain, unspecified abdominal location C/O RLQ pain x couple weeks with nausea, vomiting, diarrhea. Hx Crohn's. No surgery/CA/asthma. TECHNIQUE: CT of the abdomen and pelvis was performed using standard technique, scanning from just above the dome of the diaphragm to the symphysis pubis. MQ: CTAP_3 Contrast: Oral: 900 ml of READI-CAT 2 IV: 135 ml of Omnipaque 300 CT Radiation dose: Integrated Dose-length product (DLP) for this visit = [address] Dose Reduction Employed: Automated exposure control (AEC) COMPARISON: 01/10/2020 and 08/17/2020 RESULT: Liver: No mass. Biliary: No bile duct dilation. Gallbladder is unremarkable. Spleen: No mass. No splenomegaly. Pancreas: No mass or duct dilation. Adrenals: No mass. Kidneys: Symmetric enhancement. Mild right hydroureteronephrosis. No obstructing stone or mass is identified. GI tract: No dilation or wall thickening. Normal appendix. Lymph nodes: No abdominal or pelvic lymphadenopathy. Mesentery/Peritoneum: Trace free fluid in the pelvis. Retroperitoneum: No mass. Vasculature: The celiac axis and SMA are patent. The portal vein and branches, splenic vein, SMV, and hepatic veins are patent. No abdominal aortic or iliac artery aneurysm. Pelvis: 6.2 cm right ovarian cyst. Bones/Soft Tissues: Mild degenerative disc disease at L4-L5 and L5-S1. Lower thorax: Calcified granuloma in the left lower lobe. Internal Control Consultant (topogram) images: No additional findings. IMPRESSION: 1. Mild right hydroureteronephrosis. No obstructing stone or mass is identified. Findings may be related to a recently passed stone or infection, although no inflammatory changes are associated with the hydroureteronephrosis. Alternatively, the hydronephrosis could potentially be related to mass effect on the ureter from the large ovarian cyst in the right hemipelvis. This finding is new from the ultrasound dated 08/17/2020. 2. There is a 6.2 cm right ovarian cyst. Recommend pelvic ultrasound for further evaluation. Medical Case Manager: MIRANDA Transcribe Date/Time: Aug 25 2020 9:36P Dictated by : NISH SABILLON MD This examination was interpreted and the report reviewed and electronically signed by: NISH SABILLON MD on Aug 25 2020 9:48PM EST Normal [facility] VL MESENTERIC ARTERY DUPLEX SCANon 02-05-2020 [facility] Mesenteric Artery Duplex Report Ordering Physician: Azael Irene Escrow Manager: Elyse Vigil T Interpreting Physician: Earl Paul Location: [address] Indications: Right upper abdominal pain. Abdomen pain. Conclusions 1. Study is negative for stenosis involving the celiac artery. 2. Study is negative for stenosis involving the superior mesenteric artery. 3. Study is negative for stenosis involving the inferior mesenteric arteries. History: Risk factors: Current tobacco use. Study data: Mesenteric arterial duplex. Duplex scan, grayscale 2D imaging, color Doppler imaging, and spectral Doppler analysis. Location: Vascular laboratory. Procedure: A vascular evaluation was performed with the patient in the supine position. Images were obtained using a ascentify E9 vascular ultrasound machine. The abdominal aorta and the celiac, superior mesenteric, and inferior mesenteric arteries were studied. Arterial flow: + -----+ + +Location +PSV(cm/sec)+ + -----+ + +Suprarenal aorta , prox +157 + + -----+ + +Celiac with inspiration +168 + + -----+ + +Celiac , origin +191 + + -----+ + +Celiac , prox +164 + + -----+ + +Celiac , mid +235 + + -----+ + +Celiac , distal +195 + + -----+ + +Common hepatic , prox +155 + + -----+ + +Splenic , prox +132 + + -----+ + +Superior mesenteric , origin+181 + + -----+ + +Superior mesenteric , prox +243 + + -----+ + +Superior mesenteric , mid +168 + + -----+ + +Inferior mesenteric , prox +126 + + -----+ + Prepared and electronically signed by Earl Paul 02/05/2020 08:16 [facility] [place] [place] Incoming Cardiology Results From Dylan/Paola - 02/05/2020 8:17 AM EDT [facility] Mesenteric Artery Duplex Report Ordering Physician: Azael Irene Escrow Manager: Elyse Vigil RVT Interpreting Physician: Earl Paul Location: [place] [address] Indications: Right upper abdominal pain. Abdomen pain. Conclusions 1. Study is negative for stenosis involving the celiac artery. 2. Study is negative for stenosis involving the superior mesenteric artery. 3. Study is negative for stenosis involving the inferior mesenteric arteries. History: Risk factors: Current tobacco use. Study data: Mesenteric arterial duplex. Duplex scan, grayscale 2D imaging, color Doppler imaging, and spectral Doppler analysis. Location: Vascular laboratory. Procedure: A vascular evaluation was performed with the patient in the supine position. Images were obtained using a ascentify E9 vascular ultrasound machine. The abdominal aorta and the celiac, superior mesenteric, and inferior mesenteric arteries were studied. Arterial flow: + -----+ + +Location +PSV(cm/sec)+ + -----+ + +Suprarenal aorta , prox +157 + + -----+ + +Celiac with inspiration +168 + + -----+ + +Celiac , origin +191 + + -----+ + +Celiac , prox +164 + + -----+ + +Celiac , mid +235 + + -----+ + +Celiac , distal +195 + + -----+ + +Common hepatic , prox +155 + + -----+ + +Splenic , prox +132 + + -----+ + +Superior mesenteric , origin+181 + + -----+ + +Superior mesenteric , prox +243 + + -----+ + +Superior mesenteric , mid +168 + + -----+ + +Inferior mesenteric , prox +126 + + -----+ + Prepared and electronically signed by Earl Paul 02/05/2020 08:16 [place], [place] VL Mesenteric Duplexon 02-04 VL Mesenteric Duplex Patient Name: ARMIN VIVAS Ultrasound Exam Date/Time 02/05/2020 07:49:45 EDT Exam VL Mesenteric Duplex Ordering Physician MD MARIA VICTORIA, AZAEL BIGGS Accession Number [id number] CPT4 Codes 80143 () Reason For Exam Abnormal liver computed tomography scan Report [facility] Mesenteric Artery Duplex Report Ordering Physician: Azael Irene Escrow Manager: Elyse Vigil RVT Interpreting Physician: Earl Paul Location: [address] Indications: Right upper abdominal pain. Abdomen pain. Conclusions 1. Study is negative for stenosis involving the celiac artery. 2. Study is negative for stenosis involving the superior mesenteric artery. 3. Study is negative for stenosis involving the inferior mesenteric arteries. History: Risk factors: Current tobacco use. Study data: Mesenteric arterial duplex. Duplex scan, grayscale 2D imaging, color Doppler imaging, and spectral Doppler analysis. Location: Vascular laboratory. Procedure: A vascular evaluation was performed with the patient in the supine position. Images were obtained using a ascentify E9 vascular ultrasound machine. The abdominal aorta and the celiac, superior mesenteric, and inferior mesenteric arteries were studied. Arterial flow: + -----+ + +Location +PSV(cm/sec)+ + -----+ + +Suprarenal aorta , prox +157 + + -----+ + +Celiac with inspiration +168 + + -----+ + +Celiac , origin +191 + + -----+ + +Celiac , prox +164 + + -----+ + +Celiac , mid +235 + + -----+ + +Celiac , distal +195 + + -----+ + +Common hepatic , prox +155 + + -----+ + +Splenic , prox +132 + + -----+ + +Superior mesenteric , origin+181 + + -----+ + +Superior mesenteric , prox +243 + + -----+ + +Superior mesenteric , mid +168 + + -----+ + +Inferior mesenteric , prox +126 + + -----+ + Prepared and electronically signed by Earl Paul 02/05/2020 08:16 Final Dictated: 02/05/2020 8:17 am Dictating Physician: EARL PAUL Signed Date and Time: 02/05/2020 8:17 am Signed by: EARL PAUL [facility] Influenza virus A and B and SARS-CoV-2 (COVID-19) Ag panel - Upper respiratory specim SARS-CoV-2 (COVID-19) RNA DEISY+probe Ql (Resp) [facility] Work Phone: Vital Signs Date Time Vital Sign Value Performing Clinician Janak avendaño 02-25-2025 17:00-0400 Body temperature 98 [degF] Dr. Azael Irene MD Work Phone: [facility] 02-25-2025 17:00-0400 Diastolic blood pressure 80 mm[Hg] Dr. Azael Irene MD Work Phone: 1(191)441-453361 [place] [address] 02-25-2025 17:00-0400 Heart rate 78 /min Dr. Azael Irene MD Work Phone: 0(280)585-360676 [place] [address] 02-25-2025 17:00-0400 Respiratory rate 14 /min Dr. Azael Irene MD Work Phone: 1(445)342-062876 [place] [address] 02-25-2025 17:00-0400 SaO2% (BldA) [Mass fraction] 99 % Dr. Azael Irene MD Work Phone: 9(218)983-752776 [place] [address] 02-25-2025 17:00-0400 Systolic blood pressure 137 mm[Hg] Dr. Azael Irene MD Work Phone: 7(458)499-605276 [place] [address] 02-25-2025 13:17-0400 Body height 162.[address] Azael Irene MD Work Phone: 5(933)067-417976 [place] [address] 02-25-2025 13:17-0400 Body mass index (BMI) [Ratio] 26.4 kg/m2 Dr. Azael Irene MD Work Phone: 5(950)716-459876 [place] [address] 02-25-2025 13:17-0400 Body weight 69.[address] Azael Irene MD Work Phone: 0(583)246-104761 [place] [address] 01-03-2025 21:56-0400 Body temperature 97.6 [degF] Dr. Azael Irene MD Work Phone: 1(356)184-668961 [place] [address] 01-03-2025 21:56-0400 Diastolic blood pressure 56 mm[Hg] Dr. Azael Irene MD Work Phone: 8(410)303-492461 [place] [address] 01-03-2025 21:56-0400 Heart rate 67 /min Dr. Azael Irene MD Work Phone: 8(605)959-093861 [place] [address] 01-03-2025 21:56-0400 Respiratory rate 18 /min Dr. Azael Irene MD Work Phone: [facility] 01-03-2025 21:56-0400 SaO2% (BldA) [Mass fraction] 99 % Dr. Azael Irene MD Work Phone: [facility] 01-03-2025 21:56-0400 Systolic blood pressure 129 mm[Hg] Dr. Azael Irene MD Work Phone: [facility] 01-03-2025 19:26-0400 Body mass index (BMI) [Ratio] 27.4 kg/m2 Dr. Azael Irene MD Work Phone: 4(363)944-946861 [place] [address] 01-03-2025 19:26-0400 Body weight 72.[address] Azael Irene MD Work Phone: 8(605)242-282495 [address] 12-11-2024 13:03-0400 Diastolic blood pressure 68 mm[Hg] Dr. Azael Irene MD Work Phone: 7(785)838-805961 [place] [address] 12-11-2024 13:03-0400 Heart rate 85 /min Dr. Azael Irene MD Work Phone: 3(564)820-026561 [place] [address] 12-11-2024 13:03-0400 Respiratory rate 18 /min Dr. Azael Irene MD Work Phone: 4(075)195-025061 [place] [address] 12-11-2024 13:03-0400 SaO2% (BldA) [Mass fraction] 96 % Dr. Azael Irene MD Work Phone: [facility] 12-11-2024 13:03-0400 Systolic blood pressure 155 mm[Hg] Dr. Azael Irene MD Work Phone: 5(996)740-082061 [place] [address] 12-11-2024 11:32-0400 Body height 162.[address] Azael Irene MD Work Phone: [facility] 12-11-2024 11:32-0400 Body mass index (BMI) [Ratio] 28.6 kg/m2 Dr. Azael Irene MD Work Phone: [facility] 12-11-2024 11:32-0400 Body weight 75.[address] Azael Irene MD Work Phone: [facility] 11-09-2024 09:58-0400 Body mass index (BMI) [Ratio] 28.2 kg/m2 Dr. Azael Irene MD Work Phone: [facility] 11-09-2024 09:58-0400 Body weight 74.[address] Azael Irene MD Work Phone: 4(392)094-400161 [place] [address] 11-09-2024 09:58-0400 Diastolic blood pressure 73 mm[Hg] Dr. Azael Irene MD Work Phone: 3(728)882-502561 [place] [address] 11-09-2024 09:58-0400 Heart rate 91 /min Dr. Azael Irene MD Work Phone: 5(202)110-670761 [place] [address] 11-09-2024 09:58-0400 Respiratory rate 20 /min Dr. Azael Irene MD Work Phone: 6(807)207-134061 [place] [address] 11-09-2024 09:58-0400 SaO2% (BldA) [Mass fraction] 98 % Dr. Azael Irene MD Work Phone: [facility] 11-09-2024 09:58-0400 Systolic blood pressure 106 mm[Hg] Dr. Azael Irene MD Work Phone: [facility] 10-09-2024 19:01-0500 Body temperature 98.3 [degF] Dr. Azael Irene MD Work Phone: [facility] 10-09-2024 19:01-0500 Diastolic blood pressure 78 mm[Hg] Dr. Azael Irene MD Work Phone: [facility] 10-09-2024 19:01-0500 Heart rate 68 /min Dr. Azael Irene MD Work Phone: [facility] 10-09-2024 19:01-0500 Respiratory rate 16 /min Dr. Azael Irene MD Work Phone: [facility] 10-09-2024 19:01-0500 SaO2% (BldA) [Mass fraction] 98 % Dr. Azael Irene MD Work Phone: [facility] 10-09-2024 19:01-0500 Systolic blood pressure 120 mm[Hg] Dr. Azael Irene MD Work Phone: [facility] 10-09-2024 11:48-0500 Body mass index (BMI) [Ratio] 27.6 kg/m2 Dr. Azael Irene MD Work Phone: 4(802)073-387461 [place] [address] 10-09-2024 11:48-0500 Body weight 73.[address] Azael Irene MD Work Phone: 7(570)219-485276 [place] [address] 09-22-2024 11:45-0500 Body temperature 97.5 [degF] Dr. Azael Irene MD Work Phone: 6(357)484-131476 [place] [address] 09-22-2024 11:45-0500 Diastolic blood pressure 78 mm[Hg] Dr. Azael Irene MD Work Phone: [facility] 09-22-2024 11:45-0500 Heart rate 88 /min Dr. Azael Irene MD Work Phone: [facility] 09-22-2024 11:45-0500 Respiratory rate 16 /min Dr. Azael Irene MD Work Phone: [facility] 09-22-2024 11:45-0500 SaO2% (BldA) [Mass fraction] 100 % Dr. Azael Irene MD Work Phone: [facility] 09-22-2024 11:45-0500 Systolic blood pressure 125 mm[Hg] Dr. Azael Irene MD Work Phone: [facility] 09-22-2024 09:37-0500 Body mass index (BMI) [Ratio] 28.5 kg/m2 Dr. Azael Irene MD Work Phone: [facility] 09-22-2024 09:37-0500 Body weight 75.[address] Azael Irene MD Work Phone: [facility] 09-10-2024 09:55-0500 Body temperature 97.5 [degF] Dr. Azael Irene MD Work Phone: 1(333)083-654976 [place] [address] 09-10-2024 09:55-0500 Diastolic blood pressure 73 mm[Hg] Dr. Azael Irene MD Work Phone: 6(367)854-199361 [place] [address] 09-10-2024 09:55-0500 Heart rate 72 /min Dr. Azael Irene MD Work Phone: 2(965)372-878876 [place] [address] 09-10-2024 09:55-0500 Respiratory rate 17 /min Dr. Azael Irene MD Work Phone: 0(661)429-208576 [place] [address] 09-10-2024 09:55-0500 SaO2% (BldA) [Mass fraction] 98 % Dr. Azael Irene MD Work Phone: [facility] 09-10-2024 09:55-0500 Systolic blood pressure 125 mm[Hg] Dr. Azael Irene MD Work Phone: [facility] 08-28-2024 14:47-0500 Body mass index (BMI) [Ratio] 28.1 kg/m2 Dr. Azael Irene MD Work Phone: [facility] 08-28-2024 14:47-0500 Body temperature 97.2 [degF] Dr. Azael Irene MD Work Phone: [facility] 08-28-2024 14:47-0500 Body weight 74.[address] Azael Irene MD Work Phone: [facility] 08-28-2024 14:47-0500 Diastolic blood pressure 72 mm[Hg] Dr. Azael Irene MD Work Phone: [facility] 08-28-2024 14:47-0500 Heart rate 68 /min Dr. Azael Irene MD Work Phone: [facility] 08-28-2024 14:47-0500 Respiratory rate 18 /min Dr. Azael Irene MD Work Phone: [facility] 08-28-2024 14:47-0500 SaO2% (BldA) [Mass fraction] 99 % Dr. Azael Irene MD Work Phone: [facility] 08-28-2024 14:47-0500 Systolic blood pressure 112 mm[Hg] Dr. Azael Irene MD Work Phone: 7(556)789-675061 [place] [address] 08-27-2024 18:00-0500 Respiratory rate 18 /min Dr. Azael Irene MD Work Phone: 5(048)471-031695 [address] 08-27-2024 16:53-0500 Diastolic blood pressure 65 mm[Hg] Dr. Azael Irene MD Work Phone: 6(997)529-678761 [place] [address] 08-27-2024 16:53-0500 Heart rate 74 /min Dr. Azael Irene MD Work Phone: 9(433)754-014161 [place] [address] 08-27-2024 16:53-0500 SaO2% (BldA) [Mass fraction] 99 % Dr. Azael Irene MD Work Phone: [facility] 08-27-2024 16:53-0500 Systolic blood pressure 100 mm[Hg] Dr. Azael Irene MD Work Phone: [facility] 08-27-2024 14:53-0500 Body mass index (BMI) [Ratio] 27.6 kg/m2 Dr. Azael Irene MD Work Phone: [facility] 08-27-2024 14:53-0500 Body temperature 98.4 [degF] Dr. Azael Irene MD Work Phone: [facility] 08-27-2024 14:53-0500 Body weight 73.[address] Azael Irene MD Work Phone: [facility] 08-19-2024 22:56-0500 Body temperature 97.5 [degF] Dr. Azael Irene MD Work Phone: [facility] 08-19-2024 22:56-0500 Diastolic blood pressure 74 mm[Hg] Dr. Azael Irene MD Work Phone: [facility] 08-19-2024 22:56-0500 Heart rate 65 /min Dr. Azael Irene MD Work Phone: [facility] 08-19-2024 22:56-0500 Respiratory rate 16 /min Dr. Azael Irene MD Work Phone: [facility] 08-19-2024 22:56-0500 SaO2% (BldA) [Mass fraction] 99 % Dr. Azael Irene MD Work Phone: [facility] 08-19-2024 22:56-0500 Systolic blood pressure 129 mm[Hg] Dr. Azael Irene MD Work Phone: [facility] 08-19-2024 17:11-0500 Body mass index (BMI) [Ratio] 28.3 kg/m2 Dr. Azael Irene MD Work Phone: [facility] 08-19-2024 17:11-0500 Body weight 74.[address] Azael Irene MD Work Phone: [facility] 01-09-2024 07:27-0400 Body height 162.6 cm Azael Irene MD Work Phone: [facility] 01-09-2024 07:27-0400 Body mass index (BMI) [Ratio] 30.21 kg/m2 Azael Irene MD Work Phone: [facility] 01-09-2024 07:27-0400 Body weight 79.83 kg Azael Irene MD Work Phone: [facility] 01-09-2024 07:27-0400 Diastolic blood pressure 62 mm[Hg] Azael Irene MD Work Phone: [facility] 01-09-2024 07:27-0400 Heart rate 88 /min Azael Irene MD Work Phone: [facility] 01-09-2024 07:27-0400 SaO2% (BldA) [Mass fraction] 95 % Azael Irene MD Work Phone: [facility] 01-09-2024 07:27-0400 Systolic blood pressure 102 mm[Hg] Azael Irene MD Work Phone: [facility] 12-26-2023 17:26-0400 Body temperature 97.9 [degF] [facility] 12-26-2023 17:26-0400 Diastolic blood pressure 55 mm[Hg] [facility] 12-26-2023 17:26-0400 Heart rate 85 /min [facility] 12-26-2023 17:26-0400 Respiratory rate 18 /min [facility] 12-26-2023 17:26-0400 SaO2% (BldA) [Mass fraction] 96 % [facility] 12-26-2023 17:26-0400 Systolic blood pressure 125 mm[Hg] [facility] 12-26-2023 13:02-0400 Body height 162.56 cm [facility] 12-26-2023 13:02-0400 Body mass index (BMI) [Ratio] 29.4 kg/m2 [facility] 12-26-2023 13:02-0400 Body weight 77.79 kg [facility] 11-13-2023 19:00-0400 Body temperature 98.2 [degF] [facility] 11-13-2023 19:00-0400 Diastolic blood pressure 58 mm[Hg] [facility] 11-13-2023 19:00-0400 Heart rate 76 /min [facility] 11-13-2023 19:00-0400 Respiratory rate 14 /min [facility] 11-13-2023 19:00-0400 SaO2% (BldA) [Mass fraction] 99 % [facility] 11-13-2023 19:00-0400 Systolic blood pressure 114 mm[Hg] [facility] 11-13-2023 16:04-0400 Body height 162.56 cm [facility] 11-13-2023 16:04-0400 Body mass index (BMI) [Ratio] 28.9 kg/m2 [facility] 11-13-2023 16:04-0400 Body weight 76.4 kg [facility] 11-10-2023 23:09-0400 Body temperature 98 [degF] [facility] 11-10-2023 23:09-0400 Diastolic blood pressure 72 mm[Hg] [facility] 11-10-2023 23:09-0400 Heart rate 80 /min [facility] 11-10-2023 23:09-0400 Respiratory rate 14 /min [facility] 11-10-2023 23:09-0400 SaO2% (BldA) [Mass fraction] 99 % [facility] 11-10-2023 23:09-0400 Systolic blood pressure 138 mm[Hg] [facility] 11-10-2023 17:57-0400 Body height 162.56 cm [facility] 11-10-2023 17:57-0400 Body mass index (BMI) [Ratio] 29.3 kg/m2 [facility] 11-10-2023 17:57-0400 Body weight 77.51 kg [facility] 07-23-2023 17:21-0500 Body height 162.[address] Azael Irene Work Phone: [facility] 07-23-2023 17:21-0500 Body mass index (BMI) [Ratio] 27.8 kg/m2 Dr. Azael Irene Work Phone: [facility] 07-23-2023 17:21-0500 Body temperature 97.4 [degF] Dr. Azael Irene Work Phone: [facility] 07-23-2023 17:21-0500 Body weight 73.[address] Azael Irene Work Phone: [facility] 07-23-2023 17:21-0500 Diastolic blood pressure 67 mm[Hg] Dr. Azael Irene Work Phone: [facility] 07-23-2023 17:21-0500 Heart rate 91 /min Dr. Azael Irene Work Phone: [facility] 07-23-2023 17:21-0500 Respiratory rate 18 /min Dr. Azael Irene Work Phone: [facility] 07-23-2023 17:21-0500 SaO2% (BldA) [Mass fraction] 98 % Dr. Azael Irene Work Phone: [facility] 07-23-2023 17:21-0500 Systolic blood pressure 128 mm[Hg] Dr. Azael Irene Work Phone: [facility] 05-31-2023 08:48-0400 Body mass index (BMI) [Ratio] 27.5 kg/m2 Dr. Azael Irene Work Phone: [facility] 05-31-2023 08:48-0400 Body weight 72.[address] Azael Irene Work Phone: [facility] 05-31-2023 08:48-0400 Diastolic blood pressure 80 mm[Hg] Dr. Azael Irene Work Phone: [facility] 05-31-2023 08:48-0400 Systolic blood pressure 124 mm[Hg] Dr. Azael Irene Work Phone: [facility] 05-03-2023 18:20-0400 Body temperature 98.6 [degF] Dr. Azael Irene Work Phone: [facility] 05-03-2023 18:20-0400 Diastolic blood pressure 78 mm[Hg] Dr. Azael Irene Work Phone: [facility] 05-03-2023 18:20-0400 Heart rate 64 /min Dr. Azael Irene Work Phone: 7(853)393-107761 [place] [address] 05-03-2023 18:20-0400 Respiratory rate 14 /min Dr. Azael Irene Work Phone: 6(348)458-148261 [place] [address] 05-03-2023 18:20-0400 SaO2% (BldA) [Mass fraction] 99 % Dr. Azael Irene Work Phone: 7(835)328-686261 [place] [address] 05-03-2023 18:20-0400 Systolic blood pressure 134 mm[Hg] Dr. Azael Irene Work Phone: 8(211)879-948795 [address] 05-03-2023 15:21-0400 Body height 162.[address] Azael Irene Work Phone: 8(863)877-213376 [place] [address] 05-03-2023 15:21-0400 Body mass index (BMI) [Ratio] 27.3 kg/m2 Dr. Azael Irene Work Phone: 5(081)572-415576 [place] [address] 05-03-2023 15:21-0400 Body weight 72.[address] Azael Irene Work Phone: 0(721)059-957376 [place] [address] 04-29-2023 08:50-0400 Body mass index (BMI) [Ratio] 27.7 kg/m2 Dr. Azael Irene Work Phone: 1(764)225-253376 [place] [address] 04-29-2023 08:50-0400 Body weight 73.[address] Azael Irene Work Phone: 5(785)112-439161 [place] [address] 04-29-2023 08:50-0400 Diastolic blood pressure 68 mm[Hg] Dr. Azael Irene Work Phone: 2(626)115-251376 [place] [address] 04-29-2023 08:50-0400 Systolic blood pressure 118 mm[Hg] Dr. Azael Irene Work Phone: 5(092)964-898161 [place] [address] 03-26-2023 15:12-0400 Diastolic blood pressure 61 mm[Hg] Dr. Azael Irene Work Phone: 8(415)761-522161 [place] [address] 03-26-2023 15:12-0400 Heart rate 58 /min Dr. Azael Irene Work Phone: [facility] 03-26-2023 15:12-0400 Respiratory rate 16 /min Dr. Azael Irene Work Phone: [facility] 03-26-2023 15:12-0400 SaO2% (BldA) [Mass fraction] 99 % Dr. Azael Irene Work Phone: [facility] 03-26-2023 15:12-0400 Systolic blood pressure 122 mm[Hg] Dr. Azael Irene Work Phone: [facility] 03-26-2023 11:51-0400 Body mass index (BMI) [Ratio] 28.5 kg/m2 Dr. Azael Irene Work Phone: [facility] 03-26-2023 11:51-0400 Body temperature 97.3 [degF] Dr. Azael Irene Work Phone: [facility] 03-26-2023 11:51-0400 Body weight 75.[address] Azael Irene Work Phone: [facility] 03-14-2023 10:44-0400 Body height 162.6 cm Eduardo Zuluaga MD Work Phone: [facility] 03-14-2023 10:44-0400 Body weight 73.03 kg Eduardo Zuluaga MD Work Phone: [facility] 03-14-2023 10:44-0400 Diastolic blood pressure 79 mm[Hg] Eduardo Zuluaga MD Work Phone: [facility] 03-14-2023 10:44-0400 Heart rate 91 /min Eduardo Zuluaga MD Work Phone: [facility] 03-14-2023 10:44-0400 Systolic blood pressure 114 mm[Hg] Eduardo Zuluaga MD Work Phone: [facility] 02-04-2023 20:09-0400 Diastolic blood pressure 65 mm[Hg] [facility] 02-04-2023 20:09-0400 Systolic blood pressure 110 mm[Hg] [facility] 02-04-2023 17:48-0400 Body height 162.56 cm [facility] 02-04-2023 17:48-0400 Body mass index (BMI) [Ratio] 28.5 kg/m2 [facility] 02-04-2023 17:48-0400 Body temperature 97 [degF] [facility] 02-04-2023 17:48-0400 Body weight 75.4 kg [facility] 02-04-2023 17:48-0400 Heart rate 87 /min [facility] 02-04-2023 17:48-0400 Respiratory rate 14 /min [facility] 02-04-2023 17:48-0400 SaO2% (BldA) [Mass fraction] 99 % [facility] 12-20-2022 09:27-0400 Body height 162.6 cm Eduardo Zuluaga MD Work Phone: [facility] 12-20-2022 09:27-0400 Body weight 67.13 kg Eduardo Zuluaga MD Work Phone: [facility] 12-20-2022 09:27-0400 Diastolic blood pressure 79 mm[Hg] Eduardo Zuluaga MD Work Phone: [facility] 12-20-2022 09:27-0400 Heart rate 100 /min Eduardo Zuluaga MD Work Phone: [facility] 12-20-2022 09:27-0400 Systolic blood pressure 118 mm[Hg] Eduardo Zuluaga MD Work Phone: [facility] 11-22-2022 06:38-0400 Diastolic blood pressure 50 mm[Hg] [facility] 11-22-2022 06:38-0400 Heart rate 78 /min [facility] 11-22-2022 06:38-0400 Respiratory rate 16 /min [facility] 11-22-2022 06:38-0400 Systolic blood pressure 116 mm[Hg] [facility] 11-22-2022 02:17-0400 Body height 162.56 cm [facility] 11-22-2022 02:17-0400 Body mass index (BMI) [Ratio] 27.3 kg/m2 [facility] 11-22-2022 02:17-0400 Body temperature 97 [degF] [facility] 11-22-2022 02:17-0400 Body weight 72.39 kg [facility] 11-22-2022 02:17-0400 SaO2% (BldA) [Mass fraction] 99 % [facility] 11-12-2022 18:02-0400 Body height 162.56 cm [facility] 11-12-2022 18:02-0400 Body mass index (BMI) [Ratio] 25.2 kg/m2 [facility] 11-12-2022 18:02-0400 Body temperature 97.4 [degF] [facility] 11-12-2022 18:02-0400 Body weight 66.67 kg [facility] 11-12-2022 18:02-0400 Diastolic blood pressure 66 mm[Hg] [facility] 11-12-2022 18:02-0400 Heart rate 81 /min [facility] 11-12-2022 18:02-0400 Respiratory rate 14 /min [facility] 11-12-2022 18:02-0400 SaO2% (BldA) [Mass fraction] 98 % [facility] 11-12-2022 18:02-0400 Systolic blood pressure 108 mm[Hg] [facility] 10-03-2022 20:58-0500 Diastolic blood pressure 69 mm[Hg] [facility] 10-03-2022 20:58-0500 Heart rate 86 /min [facility] 10-03-2022 20:58-0500 Respiratory rate 15 /min [facility] 10-03-2022 20:58-0500 SaO2% (BldA) [Mass fraction] 99 % [facility] 10-03-2022 20:58-0500 Systolic blood pressure 103 mm[Hg] [facility] 10-03-2022 17:58-0500 Body height 162.56 cm [facility] 10-03-2022 17:58-0500 Body mass index (BMI) [Ratio] 26.9 kg/m2 [facility] 10-03-2022 17:58-0500 Body temperature 98.7 [degF] [facility] 10-03-2022 17:58-0500 Body weight 71.21 kg [facility] 09-06-2022 09:21-0500 Body height 162.6 cm Azael Irene MD Work Phone: [facility] 09-06-2022 09:21-0500 Body mass index (BMI) [Ratio] 26.23 kg/m2 Azael Irene MD Work Phone: [facility] 09-06-2022 09:21-0500 Body weight 69.31 kg Azael Irene MD Work Phone: [facility] 09-06-2022 09:21-0500 Diastolic blood pressure 48 mm[Hg] Azael Irene MD Work Phone: [facility] 09-06-2022 09:21-0500 Heart rate 72 /min Azael Irene MD Work Phone: [facility] 09-06-2022 09:21-0500 Systolic blood pressure 109 mm[Hg] Azeal Irene MD Work Phone: [facility] 09-02-2022 22:45-0500 Diastolic blood pressure 60 mm[Hg] [facility] 09-02-2022 22:45-0500 Heart rate 60 /min [facility] 09-02-2022 22:45-0500 Respiratory rate 16 /min [facility] 09-02-2022 22:45-0500 Systolic blood pressure 101 mm[Hg] [facility] 09-02-2022 21:50-0500 SaO2% (BldA) [Mass fraction] 97 % [facility] 09-02-2022 16:43-0500 Body height 162.56 cm [facility] Work Phone: 09-02-2022 16:43-0500 Body mass index (BMI) [Ratio] 26.4 kg/m2 [facility] 09-02-2022 16:43-0500 Body temperature 98.2 [degF] [facility] 09-02-2022 16:43-0500 Body weight 69.7 kg [facility] 08-14-2022 13:43-0500 Diastolic blood pressure 62 mm[Hg] [facility] 08-14-2022 13:43-0500 Heart rate 61 /min [facility] 08-14-2022 13:43-0500 Respiratory rate 16 /min [facility] 08-14-2022 13:43-0500 SaO2% (BldA) [Mass fraction] 100 % [facility] 08-14-2022 13:43-0500 Systolic blood pressure 109 mm[Hg] [facility] 08-14-2022 11:16-0500 Body mass index (BMI) [Ratio] 26.6 kg/m2 [facility] 08-14-2022 11:16-0500 Body temperature 97.3 [degF] [facility] 08-14-2022 11:16-0500 Body weight 70.3 kg [facility] 08-08-2022 21:06-0500 Diastolic blood pressure 59 mm[Hg] [facility] 08-08-2022 21:06-0500 Heart rate 90 /min [facility] 08-08-2022 21:06-0500 Respiratory rate 15 /min [facility] 08-08-2022 21:06-0500 SaO2% (BldA) [Mass fraction] 99 % [facility] 08-08-2022 21:06-0500 Systolic blood pressure 111 mm[Hg] [facility] 08-08-2022 18:29-0500 Body temperature 98.3 [degF] [facility] 08-08-2022 16:30-0500 Body mass index (BMI) [Ratio] 26.2 kg/m2 [facility] 08-08-2022 16:30-0500 Body weight 69.39 kg [facility] 05-16-2022 21:28-0400 Diastolic blood pressure 74 mm[Hg] [facility] Work Phone: 05-16-2022 21:28-0400 Heart rate 70 /min [facility] Work Phone: 05-16-2022 21:28-0400 Respiratory rate 17 /min [facility] Work Phone: 05-16-2022 21:28-0400 SaO2% (BldA) [Mass fraction] 98 % [facility] Work Phone: 05-16-2022 21:28-0400 Systolic blood pressure 118 mm[Hg] [facility] Work Phone: 05-16-2022 17:45-0400 Body mass index (BMI) [Ratio] 25.5 kg/m2 [facility] Work Phone: 05-16-2022 17:45-0400 Body temperature 97.3 [degF] [facility] Work Phone: 05-16-2022 17:45-0400 Body weight 67.58 kg [facility] Work Phone: 04-19-2022 14:09-0400 Diastolic blood pressure 73 mm[Hg] [facility] Work Phone: 04-19-2022 14:09-0400 Heart rate 82 /min [facility] Work Phone: 04-19-2022 14:09-0400 Systolic blood pressure 128 mm[Hg] [facility] Work Phone: 04-19-2022 13:12-0400 Body height 162.56 cm [facility] Work Phone: 04-19-2022 13:12-0400 Body mass index (BMI) [Ratio] 25.3 kg/m2 [facility] Work Phone: 04-19-2022 13:12-0400 Body temperature 97.5 [degF] [facility] Work Phone: 04-19-2022 13:12-0400 Body weight 67 kg [facility] Work Phone: 04-19-2022 13:12-0400 Respiratory rate 14 /min [facility] Work Phone: 04-19-2022 13:12-0400 SaO2% (BldA) [Mass fraction] 99 % [facility] Work Phone: 03-27-2022 22:16-0400 Diastolic blood pressure 69 mm[Hg] [facility] Work Phone: 03-27-2022 22:16-0400 Heart rate 72 /min [facility] Work Phone: 03-27-2022 22:16-0400 Respiratory rate 15 /min [facility] Work Phone: 03-27-2022 22:16-0400 SaO2% (BldA) [Mass fraction] 96 % [facility] Work Phone: 03-27-2022 22:16-0400 Systolic blood pressure 124 mm[Hg] [facility] Work Phone: 03-27-2022 19:59-0400 Body temperature 96.3 [degF] [facility] Work Phone: 03-27-2022 19:56-0400 Body height 162.56 cm [facility] Work Phone: 03-27-2022 19:56-0400 Body mass index (BMI) [Ratio] 24.9 kg/m2 [facility] Work Phone: 03-27-2022 19:56-0400 Body weight 65.77 kg [facility] Work Phone: 01-08-2022 09:23-0400 Diastolic blood pressure 76 mm[Hg] Jewell Linder MD Work Phone: [facility] 01-08-2022 09:23-0400 SaO2% (BldA) [Mass fraction] 100 % Jewell Linder MD Work Phone: [facility] 01-08-2022 09:23-0400 Systolic blood pressure 131 mm[Hg] Jewell Linder MD Work Phone: [facility] 01-08-2022 09:03-0400 Respiratory rate 16 /min Jewell Linder MD Work Phone: [facility] 01-08-2022 08:33-0400 Body temperature 97.9 [degF] Jewell Linder MD Work Phone: [facility] 01-08-2022 08:33-0400 Heart rate 78 /min Jewell Linder MD Work Phone: [facility] 01-08-2022 07:31-0400 Body height 162.6 cm Jewell Linder MD Work Phone: [facility] 01-08-2022 07:31-0400 Body weight 68.04 kg Jewell Linder MD Work Phone: [facility] 12-26-2021 14:45-0400 Body height 162.6 cm Jewell Linder MD Work Phone: [facility] 12-26-2021 14:45-0400 Body weight 69.04 kg Jewell Linder MD Work Phone: [facility] 12-26-2021 14:45-0400 Diastolic blood pressure 66 mm[Hg] Jewell Linder MD Work Phone: [facility] 12-26-2021 14:45-0400 Heart rate 94 /min Jewell Linder MD Work Phone: [facility] 12-26-2021 14:45-0400 SaO2% (BldA) [Mass fraction] 99 % Jewell Linder MD Work Phone: [facility] 12-26-2021 14:45-0400 Systolic blood pressure 124 mm[Hg] Jewell Linder MD Work Phone: [facility] 11-22-2021 20:13-0400 Body height 162.56 cm [facility] Work Phone: 11-22-2021 20:13-0400 Body mass index (BMI) [Ratio] 25.9 kg/m2 [facility] Work Phone: 11-22-2021 20:13-0400 Body temperature 98 [degF] [facility] Work Phone: 11-22-2021 20:13-0400 Body weight 68.7 kg [facility] Work Phone: 11-22-2021 20:13-0400 Diastolic blood pressure 45 mm[Hg] [facility] Work Phone: 11-22-2021 20:13-0400 Heart rate 95 /min [facility] Work Phone: 11-22-2021 20:13-0400 Respiratory rate 16 /min [facility] Work Phone: 11-22-2021 20:13-0400 SaO2% (BldA) [Mass fraction] 98 % [facility] Work Phone: 11-22-2021 20:13-0400 Systolic blood pressure 118 mm[Hg] [facility] Work Phone: Encounters Encounter Date Encounter Type Care Provider Facility Start: 02-25-2025 End: 02-25-2025 Emergency department patient visit Dr. Azael Irene MD Work Phone: -Emergency Department Work Phone: Start: 01-03-2025 End: 01-03-2025 Emergency department patient visit Dr. Erick Ackerman MD -Emergency Department Work Phone: Start: 12-14-2024 End: 12-14-[address] Azael Irene MD Work Phone: [facility] Work Phone: Start: 12-14-2024 End: 12-14-2024 Patient encounter procedure Niyah PRATT -Laboratory, Specimen Work Phone: Start: 12-14-2024 End: 12-14-2024 ambulatory Niayh Arevalo Facility:[facility] Start: 12-11-2024 End: 12-11-[address] Azael Irene MD Work Phone: [facility] Work Phone: Start: 12-11-2024 End: 12-11-2024 Patient encounter procedure Niyah Mickey PRATT -[facility] Work Phone: Start: 12-11-2024 End: 12-11-2024 ambulatory Niyah Arevalo Facility:[facility] Start: 11-09-2024 End: 11-09-2024 Patient encounter procedure Niyah PRATT -[facility] Work Phone: Start: 11-09-2024 End: 11-09-2024 ambulatory Azael Irene Facility:[facility] Start: 10-12-2024 ambulatory Azael Irene Facility :[facility] Start: 10-09-2024 End: 10-09-2024 Emergency department patient visit Dr. Vanita Pedroza DO -Emergency Department Work Phone: Start: 10-08-2024 Encounter for other preprocedural examination [facility] Start: 09-22-2024 End: 09-22-2024 Non-patient / Non-visit Dr. Marlene Wayne MD -[facility] Work Phone: Start: 09-22-2024 End: 09-22-2024 Admission to same day surgery center Dr. Darlene Johnson MD -[facility] Start: 09-22-2024 End: 09-22-2024 ambulatory [facility] Facility:[facility] Start: 09-10-2024 End: 09-10-2024 Patient encounter procedure Dr. Darlene Johnson MD -[facility] Work Phone: Start: 09-10-2024 End: 09-10-2024 ambulatory [facility] Facility:[facility] Start: 08-28-2024 End: 08-28-[address] Darlene Johnson MD -[facility] Work Phone: Start: 08-28-2024 End: 08-28-2024 ambulatory [facility] Facility:[facility] Start: 08-27-2024 End: 08-27-2024 Emergency department patient visit Dr. Gabe Harris MD -Emergency Department Work Phone: Start: 08-27-2024 ambulatory Niyah Schaeffer ty:[facility] Start: 08-19-2024 End: 08-19-2024 Emergency department patient visit Dr. Earl Smith DO -Emergency Department Work Phone: Start: 08-13-2024 End: 08-13-2024 ambulatory Niyah Arevalo [facility] Start: 08-13-2024 End: 08-13-2024 ambulatory Niyah Arevalo Facility:[facility] Start: 07-14-2024 End: 07-14-2024 ambulatory Bre Selby Facility:[facility] Start: 07-10-2024 End: 07-10-2024 [facility] Start: 07-10-2024 End: 07-10-2024 ambulatory [facility] Facility:[facility] Start: 06-07-2024 End: 06-07-2024 [facility] Start: 06-02-2024 End: 06-02-2024 [facility] Start: 06-02-2024 End: 06-02-2024 ambulatory [facility] Facility:[facility] Start: 05-26-2024 [facility] Start: 03-26-2024 End: 03-26-2024 Patient encounter procedure Mikey Angel PA-C Work Phone: Dermatology Comment on above: Hidradenitis suppura tiva (Primary Dx); Disturbance of skin sensation; Skin pain Start: 02-10-2024 End: 02-10-2024 Emergency department patient visit AZAEL IRENE Facility:[facility] Start: 02-10-2024 ambulatory Radha Tong RN [facility] Start: 02-10-2024 Patient encounter procedure Radha Tong RN [facility] Start: 01-23-2024 End: 01-23-2024 ambulatory LAVON DEWITT Facility:[facility] Start: 01-23-2024 End: 01-23-2024 Patient encounter procedure Lavon Dewitt COIL REPAIR TECHNICIAN.DAM TENDER Work Phone: Dermatology Comment on above: Skin pain (Primary D x); Hidradenitis suppurativa Start: 01-09-2024 End: 01-09-2024 ambulatory AZAEL IRENE [facility] Start: 01-09-2024 End: 01-09-2024 Office outpatient visit 15 minutes Azael Irene MD Work Phone: [facility] Comment on above: Sialoadenitis of sub mandibular gland (Primary Dx); Lymphadenitis Start: 12-26-2023 End: 12-26-2023 Emergency department patient visit [facility] Work Phone: Start: 11-13-2023 End: 11-13-2023 Emergency department patient visit [facility] Work Phone: Start: 11-13-2023 Telephone encounter Azael Sellers MD Work Phone: [facility] Comment on above: Needs referral gastr oenterologist (ER visit. Told to schedule with fast food fry cook.) Start: 11-10-2023 End: 11-10-2023 Emergency department patient visit [facility] Work Phone: Start: 09-17-2023 End: 09-17-2023 ambulatory AZAEL IRENE Facility:[facility] Start: 09-08-2023 End: 09-08-2023 Emergency department patient visit [facility] Facility:[facility] Start: 07-23-2023 End: 07-23-2023 Emergency department patient visit Dr. Azael Irene Work Phone: [facility]Emergency [facility] Work Phone: Start: 06-11-2023 Telephone encounter [facility] Comment on above: Received Outside Med ical Records Start: 06-06-2023 Refill Eduardo pino MD Work Phone: [facility] Comment on above: Refill Request Start: 05-31-2023 End: 05-31-[address] Azael Irene Work Phone: [facility]-Laboratory, Specimen Work Phone: Start: 05-31-2023 End: 05-31-[address] Azael Irene Work Phone: [facility] Work Phone: Start: 05-03-2023 End: 05-03-2023 Emergency department patient visit Dr. [facility]zael Irene [facility] Work [facility]: Start: 04-29-2023 End: 04-29-[address] Azael Irene Work Phone: [facility] Work Phone: Start: 03-26-2023 End: 03-26-2023 Emergency department patient visit Dr. Azael Irene [facility] Work Phone: Start: 03-14-2023 End: 03-14-2023 Patient encounter procedure Eduardo Zuluaga MD Work Phone: [facility] Comment on above: Diarrhea, unspecifie d type (Primary Dx); Irritable bowel syndrome with diarrhea; Nausea Start: 03-14-2023 End: 03-14-2023 ambulatory AZAEL IRENE Facility:[facility] Start: 03-13-2023 End: 03-13-2023 ambulatory EDUARDO ZULUAGA Facility:[facility] Start: 03-13-2023 End: 03-13-2023 Nursing evaluation of patient and report Nurse [facility] Gastroenterology Comment on above: Diarrhea, unspecifie d type; Nausea and vomiting, unspecified vomiting type Start: 02-04-2023 End: 02-04-2023 Emergency department patient visit [facility]gency [facility] Start: 12-20-2022 End: 12-20-2022 Patient encounter procedure Eduardo Zuluaga MD Work Phone: [facility] Comment on above: Diarrhea, unspecifie d type (Primary Dx); Irritable bowel syndrome with diarrhea; Nausea and vomiting, unspecified vomiting type Start: 11-22-2022 End: 11-22-2022 Emergency department patient visit [facility] Start: 11-12-2022 End: 11-12-2022 Emergency department patient visit [facility] Start: 10-03-2022 End: 10-03-2022 Emergency department patient visit [facility]gency [facility] Start: 09-06-2022 End: 09-06-2022 Office outpatient visit 25 minutes Azael Irene MD Work Phone: [facility] Comment on above: Left upper quadrant abdominal pain (Primary Dx); Crohn's disease of small intestine without complication (HCC); Other fatigue Start: 09-02-2022 End: 09-02-2022 Emergency department patient visit [facility]gency [facility] Start: 08-14-2022 End: 08-14-2022 Emergency department patient visit [facility] Start: 08-08-2022 End: 08-08-2022 Emergency department patient visit [facility] Start: 06-19-2022 Refill Eduardo pino MD Work Phone: [facility] Start: 05-18-2022 End: 05-18-2022 Patient encounter procedure [facility], [facility] Start: 05-16-2022 End: 05-16-2022 Emergency department patient visit [facility] Start: 04-19-2022 End: 04-19-2022 Emergency department patient visit [facility] Start: 03-27-2022 End: 03-27-2022 Emergency department patient visit [facility] Start: 01-23-2022 Reflaurel Linder MD Work Phone: [facility] Comment on above: Refill Request Start: 01-16-2022 Telephone encounter Jewell Linder MD Work Phone: [facility] Comment on above: Follow Up Tests Resu lts Start: 01-16-2022 End: 01-16-2022 Subsequent hospital visit by physician [facility] Work Phone: Molecular Imaging Comment on above: Nausea [R11.0] Start: 01-10-2022 Telephone encounter Jewell Linder MD Work Phone: [facility] Comment on above: Follow Up Tests Resu lts Start: 01-08-2022 End: 01-08-2022 Patient encounter status Jewell Linder MD [facility] Phone[facility] Start: 01-08-2022 End: 01-08-2022 Subsequent hospital visit by physician Jewell Linder MD Work Phone: [facility] Comment on above: Abdominal pain, unsp ecified abdominal location [R10.9] Start: 12-26-2021 End: 12-26-2021 Patient encounter procedure Jewell Linder MD Work Phone: [facility] Comment on above: Abdominal pain, unsp ecified abdominal location (Primary Dx); Diarrhea, unspecified type; Colitis; Gastroesophageal reflux disease without esophagitis; Nausea and vomiting, unspecified vomiting type; Nausea Start: 12-26-2021 Telephone encounter Jewell Linder MD Work Phone: [facility] Comment on above: Orders (colonoscopy scheduled) Start: 12-25-2021 Refill Jewell Linder MD Work Phone: [facility] Comment on above: Refill Request Start: 12-05-2021 Telephone encounter Azael Sellers Work Phone: [address] [place] [address] Comment on above: Follow Up (F/U - att empt made. No answer.) Start: 11-22-2021 End: 11-22-2021 Emergency department patient visit [facility] Start: 05-22-2021 End: 05-22-2021 Subsequent hospital visit by physician Azael Irene MD Work Phone: [facility] Comment on above: Contusion of lower b ack and pelvis, initial encounter; Acute bilateral low back pain without sciatica Start: 02-05-2020 End: 02-05-2020 Subsequent hospital visit by physician Azael Irene Work Phone: [facility] Comment on above: Right upper quadrant abdominal pain Procedures Date Procedure Procedure Detail Performing Clinician Start: 02-25-[address] Azael Irene MD Work Phone: Start: 02-25-2025 Plain chest X-ray Dr. Delbert Irene MD Work Phone: Start: 02-25-2025 D-dimer assay, quantitative Dr. Azael Irene MD Work Phone: Comment on above: NORMAL D-Dimer level (<0.50) indicates no DVT or PE. Start: 01-03-2025 Urnls dip stick/tabl et reagent auto microscopy Dr. Azael Irene MD Work Phone: Start: 01-03-2025 Computed tomography of abdomen and pelvis with intravenous contrast Dr. Azael Irene MD Work Phone: Start: 01-03-[address] Azael Irene MD Work Phone: Start: 12-11-2024 MRI of small intestine Dr. Azael Irene MD Work Phone: Start: 10-09-2024 Computed tomography of abdomen and pelvis with intravenous contrast Dr. Azael Irene MD Work Phone: Start: 10-09-2024 SARS-CoV-2, Influenz a & RSV (PCR) Dr. Azael Irene MD Work Phone: Start: 09-22-[address] Wendi Irene MD Work Phone: Start: 09-22-2024 Fluoroscopic guidance Delbert Irene MD Work Phone: Start: 08-27-2024 US scan of gallbladder Dr. Azael Irene MD Work Phone: Start: 08-19-2024 Computed tomography of abdomen and pelvis with intravenous contrast Dr. Azael Irene MD Work Phone: Start: 08-19-2024 US scan of gallbladder Dr. Azael Irene MD Work Phone: Start: 12-26-2023 Computed tomography of abdomen and pelvis with intravenous contrast Start: 12-26-2023 Plain chest X-ray Start: 11-10-2023 Computed tomography of abdomen and pelvis with intravenous contrast Start: 07-23-2023 Computed tomography of abdomen and pelvis with intravenous contrast Dr. Azael Irene Work Phone: Start: 05-31-2023 Cytopathology proced ure, preparation of smear, genital source Dr. Azael Irene Work Phone: Start: 05-31-2023 Investigation of transfusion reaction Dr. Azael Irene Work Phone: Start: 05-31-2023 Microbial culture, routine Dr. Azael Irene Work Phone: Start: 05-03-2023 Computed tomography of abdomen and pelvis with intravenous contrast Dr. Azael Irene Work Phone: Start: 03-26-2023 Plain chest X-ray Dr. Delbert Irene Work Phone: Start: 03-13-2023 Breath hydrogen/meth ane test Eduardo Zuluaga MD Work Phone: Start: 11-22-2022 Computed tomography of abdomen and pelvis with intravenous contrast Start: 10-03-2022 Computed tomography of abdomen and pelvis with contrast Start: 08-08-2022 Computed tomography of abdomen and pelvis with contrast Start: 05-18-2022 Pelvic echography Start: 05-18-2022 Transvaginal echography Start: 05-16-2022 Computed tomography of abdomen and pelvis with intravenous contrast Start: 04-19-2022 Pelvic echography Start: 01-16-2022 Gastric emptying giovanny ging study Jewell Linder MD Work Phone: Start: 01-08-2022 Urine test visual color cmprsn meths Susana Burton 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.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 Work Phone: Start: 02-05-2020 VL MESENTERIC ARTERY DUPLEX SCAN Azael Irene Work Phone: Start: 10-02-2019 Microscopic observat ion [Identifier] in Cervix by Cyto stain Azael Irene MD Work Phone: SARS-CoV-2 & FLU Ant igen (Rapid) SARS-CoV-2 & FLU Ant igen (Rapid) SARS-CoV-2 & FLU Ant igen (Rapid) Plan of Treatment Date Care Activity Detail Author Start: 2047 HEPATITIS B (1 of 3 - Risk 3-dose series) HEPATITIS B (1 of 3 - Risk 3-dose series) [facility] Start: 2047 Hepatitis B Vaccine (1 of 3 - Risk 3-dose series) Hepatitis B Vaccine (1 of 3 - Risk 3-dose series) [facility] Start: 2047 RSV Immunization age d 60 or older (1 - 1-dose 60+ series) RSV Immunization aged 60 or older (1 - 1-dose 60+ series) [facility] Start: 11-28-2037 Zoster Vaccines (1 of 2) Zoste r Vaccines (1 of 2) [facility] Start: 09-08-2033 DTaP/Tdap/Td Vaccine s (3 - Td or Tdap) DTaP/Tdap/Td Vaccines (3 - Td or Tdap) [facility] Start: 09-08-2033 Urine microalbumin profile DTa P,Tdap,Td Vaccine (4 - Td or Tdap) [facility] Start: 05-19-2029 DTaP/Tdap/Td vaccine (2 - Td or Tdap) DTaP/Tdap/Td vaccine (2 - Td or Tdap) [facility] Work Phone: Start: 05-19-2029 DTaP/Tdap/Td vaccine (2 - Td) DTaP/Tdap/Td vaccine (2 - Td) [facility] [place] Start: 05-19-2029 DTaP/Tdap/Td Vaccine s (2 - Td or Tdap) DTaP/Tdap/Td Vaccines (2 - Td or Tdap) [facility] Start: 02-25-2025 End: 02-25-2025 [facility] Start: 02-25-2025 [facility] Start: 01-03-2025 [facility] Start: 12-11-2024 Following clinical p athway protocol [facility] Start: 10-09-2024 [facility] Start: 09-22-2024 Anes intraperitoneal upper abdomen w/laps nos ANES IPER UPR ABD NOS [facility] Start: 09-22-2024 Laps surg cholecyste ctomy w/cholangiography LAPARO CHOLECYSTECTOMY/GRAPH [facility] Start: 09-22-2024 Patient discharge [facility] Start: 08-27-2024 [facility] Start: 08-19-2024 [facility] Start: 05-03-2024 Influenza vaccination [facility] Start: 01-23-2024 End: 04-23-2024 Comprehensive metabolic 2000 panel - Serum or Plasma COMPREHENSIVE METABOLIC PANEL Lab Routine Hidradenitis suppurativa Expected: 01/23/2024, Expires: 04/23/2024 [facility] Work Phone: Comment on above: Expected: 01/23/2024 , Expires: 04/23/2024 Start: 01-09-2024 End: 01-08-2025 C reactive protein [Mass/volume] in Serum or Plasma C-reactive protein Lab Routine Sialoadenitis of submandibular gland Lymphadenitis Expected: 01/09/2024 (Approximate), Expires: 01/08/[address] [facility] Comment on above: Expected: 01/09/2024 (Approximate), Expires: 01/08/2025 Start: 01-09-2024 End: 01-08-2025 CBC W Auto Differential panel - Blood CBC auto differential Lab Routine Sialoadenitis of submandibular gland Lymphadenitis Expected: 01/09/2024 (Approximate), Expires: 01/08/[address] [facility] Work Phone: Comment on above: Expected: 01/09/2024 (Approximate), Expires: 01/08/2025 Start: 01-09-2024 End: 01-08-2025 Erythrocyte sedimentation rate Sedimentation rate, automated Lab Routine Sialoadenitis of submandibular gland Lymphadenitis Expected: 01/09/2024 (Approximate), Expires: 01/08/[address] [facility] Comment on above: Expected: 01/09/2024 (Approximate), Expires: 01/08/2025 Start: 12-26-2023 End: 12-26-2023 [facility] Start: 11-13-2023 [facility] Start: 11-10-2023 End: 11-10-2023 [facility] Start: 07-23-2023 [facility] Start: 05-31-2023 Patient referral [facility] Work Phone: Start: 05-03-2023 COVID-19 Vaccine ( season) COVID-19 Vaccine () [facility] Start: 05-03-2023 Influenza vaccination C [facility] Start: 03-14-2023 End: 05-14-2023 PANC ELASTASE, FECAL PANC ELASTASE, FECAL Lab Routine Diarrhea, unspecified type Expected: 03/14/2023, Expires: 05/14/2023 [facility] Work Phone: Comment on above: Expected: 03/14/2023 , Expires: 05/14/2023 Start: 12-20-2022 End: 02-19-2023 PANC ELASTASE, FECAL PANC ELASTASE, FECAL Lab Routine Diarrhea, unspecified type Expected: 12/20/2022, Expires: 02/19/2023 [facility] Work Phone: Comment on above: Expected: 12/20/2022 , Expires: 02/19/2023 Start: 10-02-2022 Screening for malign ant neoplasm of cervix [facility] [place], [place] Start: 09-06-2022 End: 09-06-2023 CBC W Auto Differential panel - Blood CBC auto differential Lab Routine Other fatigue Expected: 09/06/2022 (Approximate), Expires: 09/06/2023 [facility] Work Phone: Comment on above: Expected: 09/06/2022 (Approximate), Expires: 09/06/2023 Start: 09-06-2022 End: 09-06-2023 Thyrotropin [Units/volume] in Serum or Plasma TSH Lab Routine Other fatigue Expected: 09/06/2022 (Approximate), Expires: 09/06/2023 [facility] Comment on above: Expected: 09/06/2022 (Approximate), Expires: 09/06/2023 Start: 09-06-2022 End: 09-06-2023 Thyroxine (T4) free [Mass/volume] in Serum or Plasma T4, free Lab Routine Other fatigue Expected: 09/06/2022 (Approximate), Expires: 09/06/2023 [facility] Comment on above: Expected: 09/06/2022 (Approximate), Expires: 09/06/2023 Start: 09-06-2022 End: 09-06-2023 Triiodothyronine (T3) Free [Mass/volume] in Serum or Plasma T3, free Lab Routine Other fatigue Expected: 09/06/2022 (Approximate), Expires: 09/06/2023 [facility] Comment on above: Expected: 09/06/2022 (Approximate), Expires: 09/06/2023 Start: 05-16-2022 Patient discharge [facility] Work Phone: Start: 05-03-2022 Influenza vaccination C [facility] Start: 04-19-2022 COVID-19 Vaccine (1) COVID-19 Vaccin e (1) [email or web address] Work Phone: Comment on above: Postponed from 11/28 (Patient Refused) Start: 05-03-2021 Influenza vaccination Flu vaccine (# 1) [email or web address] Work Phone: Start: 05-03-2020 Influenza vaccination Flu vacc ine (Season Ended) [facility] [place] Start: 10-03-2019 Screening for malign ant neoplasm of cervix Cervical cancer screen [email or web address] Work Phone: Start: 11-28-2017 HPV TESTING HPV TESTING [facility] Start: 11-28-2017 Screening for malign ant neoplasm of cervix [facility] Start: 11-28-2008 PAP TESTING PAP TESTING [facility] Start: 11-28-2008 Screening for malign ant neoplasm of cervix [facility] Start: 11-28-2006 HEPATITIS A (1 of 2 - Risk 2-dose series) HEPATITIS A (1 of 2 - Risk 2-dose series) [facility] Start: 11-28-2006 Hepatitis A Vaccine (1 of 2 - Risk 2-dose series) Hepatitis A Vaccine (1 of 2 - Risk 2-dose series) [facility] Start: 11-28-2006 HEPATITIS B (1 of 3 - Risk 3-dose series) HEPATITIS B (1 of 3 - Risk 3-dose series) [facility] Start: 11-28-2006 Hepatitis B Vaccine (1 of 3 - 19+ 3-dose series) Hepatitis B Vaccine (1 of 3 - 19+ 3-dose series) [facility] Start: 11-28-2006 Hepatitis B Vaccines (1 of 3 - 19+ 3-dose series) Hepatitis B Vaccines (1 of 3 - 19+ 3-dose series) [facility] Start: 11-28-2006 Urine microalbumin profile [facility] Start: 11-28-2005 HEPATITIS C SCREENING HEPATITIS C [facility] Start: 11-28-2005 Hepatitis C screening Hepatitis C [facility] Start: 11-28-2005 HIV SCREENING HIV SCREENING [facility] Start: 11-28-2005 HIV screening HIV Screening [facility] Start: 11-28-2005 MMR (1 of 2 - Risk 2 -dose series) MMR (1 of 2 - Risk 2-dose series) [facility] Start: 11-28-2005 MMR Vaccine (1 of 2 - Risk 2-dose series) MMR Vaccine (1 of 2 - Risk 2-dose series) [facility] Start: 11-28-2002 HIV screening HIV screen [facility] [place] [place] Start: 11-28-2000 Varicella vaccination Varicell a Vaccines (1 of 2 - 13+ 2-dose series) [facility] Start: 1999 Depression Monitoring Depression Mon itoring [facility] Start: 1999 Depresssion Monitoring Depresssion M onitoring [facility] Start: 11-28-1997 Meningococcal B Vacc ine: Consider Based On Risk (1 of 4 - Increased Risk) Meningococcal B Vaccine: Consider Based On Risk (1 of 4 - Increased Risk) [facility] Start: 11-28-1997 MENINGOCOCCAL B: Con exhibition organiser based on risk (1 of 4 - Increased Risk Bexsero 2-dose series) MENINGOCOCCAL B: Consider based on risk (1 of 4 - Increased Risk Bexsero 2-dose series) [facility] Start: 11-28-1997 MENINGOCOCCAL B: Con exhibition organiser based on risk (1 of 4 - Increased Risk) MENINGOCOCCAL B: Consider based on risk (1 of 4 - Increased Risk) [facility] Start: 11-28-1993 PNEUMOCOCCAL (1 - PCV) PNEUMOCOCCAL (1 - PCV) [facility] Start: 11-28-1993 Pneumococcal 0-64 ye ars Vaccine (1 of 1 - PPSV23) Pneumococcal 0-64 years Vaccine (1 of 1 - PPSV23) [place], [place] Start: 11-28-1993 Pneumococcal vaccination [facility] Start: 11-28-1993 Pneumococcal Vaccine : Pediatrics (0 to 5 Years) and At-Risk Patients (6 to 64 Years) (1 - PCV) Pneumococcal Vaccine: Pediatrics (0 to 5 Years) and At-Risk Patients (6 to 64 Years) (1 - PCV) [facility] Start: 11-28-1993 Pneumococcal Vaccine : Pediatrics (0 to 5 Years) and At-Risk Patients (6 to 64 Years) (1 of 2 - PCV) Pneumococcal Vaccine: Pediatrics (0 to 5 Years) and At-Risk Patients (6 to 64 Years) (1 of 2 - PCV) [facility] Start: 11-28-1992 COVID-19 VACCINE (#1) COVID-19 VACCI NE (#1) [facility] Start: 11-28-1992 COVID-19 VACCINE (1) COVID-19 VACCIN E (1) [facility] Start: 11-28-1988 HEPATITIS A (1 of 2 - Risk 2-dose series) HEPATITIS A (1 of 2 - Risk 2-dose series) [facility] Start: 11-28-1988 MMR Vaccines (1 of 1 - Standard series) MMR Vaccines (1 of 1 - Standard series) [facility] Start: 11-28-1988 Varicella vaccination Varicell a Vaccines (1 of 2 - 2-dose childhood series) [facility] Start: 11-28-1988 Varicella vaccine (1 of 2 - 2-dose childhood series) Varicella vaccine (1 of 2 - 2-dose childhood series) [facility] [place] Start: 05-31-1988 COVID-19 VACCINE (#1) COVID-19 VACCI NE (#1) [facility] Start: 05-31-1988 Examination of skin Derm Melan jean claude Skin Check [facility] Start: 1987 Hepatitis B Vaccines (1 of 3 - 3-dose series) Hepatitis B Vaccines (1 of 3 - 3-dose series) [facility] Start: 1987 Hepatitis C screening Hepatitis C sc reen [facility] Work Phone: Start: 1987 HIV screening HIV Screening [facility] Start: 1987 Lipid panel Lipid Panel [facility] Bilirubin measuremen t, urine [facility] End: 12-21-2023 BREATH TEST GLUCOSE BREATH TEST GLUCOSE Endoscopy Routine Diarrhea, unspecified type Nausea and vomiting, unspecified vomiting type 1 Occurrences starting 12/20/2022 until 12/21/2023 [facility] Work Phone: Comment on above: 1 Occurrences starti ng 12/20/2022 until 12/21/2023 BREATH TEST GLUCOSE BREATH TEST GLUCOSE Endoscopy Routine Diarrhea, unspecified type Nausea and vomiting, unspecified vomiting type 03/13/2023 [facility] Work Phone: End: 12-26-2022 COLONOSCOPY DIAGNOSTIC COLONOSCOPY DIAGNOSTIC Endoscopy Routine Abdominal pain, unspecified abdominal location Diarrhea, unspecified type 1 Occurrences starting 12/26/2021 until 12/26/2022 [facility] Work Phone: Comment on above: 1 Occurrences starti ng 12/26/2021 until 12/26/2022 End: 01-08-2022 COLONOSCOPY DIAGNOSTIC COLONOSCOPY DIAGNOSTIC Endoscopy Routine Abdominal pain, unspecified abdominal location Diarrhea, unspecified type 1 Occurrences starting 01/08/2022 until 01/08/2022 [facility] Work Phone: Comment on above: 1 Occurrences starti ng 01/08/2022 until 01/08/2022 End: 01-25-2023 Gastric emptying imaging study NM GASTRIC EMPTYING SOLID Radiology Routine Nausea 1 Occurrences starting 12/26/2021 until 01/25/2023 [facility] Work Phone: Comment on above: 1 Occurrences starti ng 12/26/2021 until 01/25/2023 Hemoglobin [Presence ] in Urine [facility] Measurement of keton es in urine using dipstick [facility] Microscopic urinalysis [facility] Patient Education [facility] Work Phone: Patient referral [facility] Work Phone: pH of Urine [facility] Specific gravity of Urine [facility] SURGICAL PATHOLOGY [facility] Work Phone: Comment on above: Release Upon Orderin g for 1 Occurrences starting 01/08/2022 Urinalysis, blood, qualitative [facility] Urine dipstick for glucose [facility] Urine dipstick for leukocyte esterase [facility] Urine dipstick for nitrite [facility] Urine dipstick for protein [facility] Urine examination [facility] Urine microscopy: epithelial cells [facility] Urine Microscopy: wh ite cells [facility] Urobilinogen [Presen ce] in Urine [facility] End: 05-22-2021 XR LUMBAR SPINE (MIN 4 VIEWS) XR LUMBAR SPINE (MIN 4 VIEWS) Imaging Routine Once for 1 Occurrences starting 05/22/2021 until 05/22/2021 [facility] Work Phone: Comment on above: Once for 1 Occurrenc es starting 05/22/2021 until 05/22/2021 XR LUMBAR SPINE (MIN 4 VIEWS) XR LUMBAR SPINE (MIN 4 VIEWS) Imaging Routine 05/22/2021 3:52 PM EDT [facility] Work Phone: [facility] Immunizations Immunization Date Immunization Notes Care Provider Sridevi reagan 09-08-2023 tetanus toxoid, redu genia diphtheria toxoid, and acellular pertussis vaccine, adsorbed Lavon Dewitt APRN.DAM [employer]ER Work Phone: [facility] 06-09-2019 Flucelvax Quad [id number] (PF) (flu vac qs 2018(4 yr up)CD(PF)) 60 mcg (15 mcg x [facility] Work Phone: 05-19-2019 tetanus toxoid, redu genia diphtheria toxoid, and acellular pertussis vaccine, adsorbed Azael Irene MD Work Phone: [facility] 05-19-2019 diphtheria, tetanus toxoids and acellular pertussis vaccine, unspecified formulation [facility] Work Phone: Payers Date Payer Category Payer Unknown [id number] 2024 Self-pay [id number] 2023 Private Health Insurance [id number] 2021 Unknown HOSPITAL/MEDICAL GENERIC MEDICAL GENERIC [id number] 2021-Present [phone] [address] [place] [address] Indemnity [id number] 2021 Private Health Insurance [facility] CHOICE PLUS [id number] 2021-Present [phone] [address] [place] [address] O [id number] .7.3.143146.315 2021 Private Health Insurance [id number] .[id number] 2021 Unknown [id number]. 1.13.159.2 .7.3.357153.315 2021 Private Health Insurance [id number] 2021 Unknown [id number] 2015 Unknown BCBS [place] - [place] P PO xxxxxxxxxxxx 2015-Present [address] [place] [address] xxxxxxxxxxxx [id number] .7.3.007050.315 2015 Unknown [id number] 1.2.840.629509.1.13.239.2 .7.3.294904.315 Unknown [id number] Unknown [id number] 2.16.840.1.735335.3.579.2 .462 Unknown [id number] 2.16.840.1.322440.3.579.2 .462 Unknown [id number] 2.16.840.1.319893.3.579.2 .462 Unknown [id number] 2.16.840.1.589809.3.579.2 .462 Unknown [id number] 2.16.840.1.040947.3.579.2 .462 Unknown [id number] 2.16.840.1.765988.3.579.2 .462 Unknown [id number] 2.16.840.1.782092.3.579.2 .462 Unknown [id number] 2.16.840.1.689566.3.579.2 .462 Unknown [id number] 2.16.840.1.927799.3.579.2 .462 Unknown [id number] 2.16.840.1.421876.3.579.2 .462 Unknown [id number] 2.16.840.1.272191.3.579.2 .462 Unknown [id number] 2.16.840.1.600275.3.579.2 .462 Unknown [id number] 2.16.840.1.691674.3.579.2 .462 Unknown [id number] 2.16.840.1.847826.3.579.2 .462 Unknown [id number] 2.16.840.1.973959.3.579.2 .462 Unknown [id number] 2.16.840.1.121788.3.579.2 .462 Unknown [id number] 2.16.840.1.010829.3.579.2 .462 Unknown [id number] 2.16.840.1.490436.3.579.2 .462 Unknown [id number] 2.16.840.1.859189.3.579.2 .462 Unknown [id number] 2.16.840.1.177805.3.579.2 .462 Unknown [id number] 2.16.840.1.031699.3.579.2 .462 Unknown [id number] 2.16.840.1.239822.3.579.2 .462 Unknown [id number] 2.16.840.1.954271.3.579.2 .462 Unknown [id number] 2.16.840.1.006549.3.579.2 .462 Unknown [id number] 2.16.840.1.576567.3.579.2 .462 Social History Date Type Detail Facility Start: 12-01-2018 End: 02-25-2025 Tobacco smoking status NHIS Current every day smoker [place], [place] Start: 03-03-2004 End: 09-02-2018 History of tobacco use Cigarette Smoker [place] Start: 12-01-2018 End: 09-06-2022 Cigarettes smoked current (pack per day) - Reported [facility] Start: 12-01-2018 End: 09-06-2022 Alcohol intake Current drinker of alcohol (finding) [place] Start: 06-09-2015 [facility] [place] [place] Start: 1985 Sex Assigned At Not on file M [place] Start: 05-22-2021 Tobacco smoking stat us NHIS [...] 2 [facility] Work Phone: Start: 11-13-2021 End: 09-06-2022 Exposure to SARS-CoV-2 (event) Not sure [facility] Start: 11-22-2021 End: 12-26-2023 Tobacco smoking status NHIS Unknown if ever smoked [facility] Start: 01-10-2020 None [facility] Start: 01-10-2020 With Family [facility] Start: 01-01-2021 Non-smoker [facility] Start: 1985 Sex Assigned At Female [facility] Start: 11-23-2021 End: 09-17-2023 Alcohol intake Current non-drinker of alcohol (finding) [facility] Start: 12-20-2022 End: 03-14-2023 Tobacco use panel [facility] PHQ2 Score 0 [facility] Start: 12-16-2024 End: 12-17-2024 Sex Female (finding) [facility] NEGATED: Highlighted row [facility] NEGATED: Highlighted row Not [facility] Medical Equipment Procedure Code Equipment Code Equipment Origin al Text Equipment Identifier Dates Total cholecystectomy with exploration of common bile duct CLIP,HEMMAXIM [employer] ARACELI FDA Start: 09-22-2024 Total cholecystectomy with exploration of common bile duct CLIP,HEMOLODAVID [employer] ARACELI FDA Start: 09-22-2024 Total cholecystectomy with exploration of common bile duct CLIP,HEMOLODAVID [employer] ARACELI FDA Start: 09-22-2024 Total cholecystectomy with exploration of common bile duct CLIP,HEMOLOCK [employer] FDA Start: 09-22-2024 Total cholecystectomy with exploration of common bile duct CLIP,[employer] FDA Start: 09-22-2024 Total cholecystectomy with exploration of common bile duct CLIP,[facility] [employer] FDA Start: 09-22-2024 Blood Sugar Diagnostic (True Metrix Glucose Test Strip) strip Start: 05-21-2019 End: 06-03-2019 Blood Sugar Diagnostic (True Metrix Glucose Test Strip) strip Start: 05-21-2019 End: 06-03-2019 Blood Sugar Diagnostic (True Metrix Glucose Test Strip) strip Start: 05-21-2019 End: 06-03-2019 Blood Sugar Diagnostic (True Metrix Glucose Test Strip) strip Start: 05-21-2019 End: 06-03-2019 Blood Sugar Diagnostic (True Metrix Glucose Test Strip) strip Start: 05-21-2019 End: 06-03-2019 Blood Sugar Diagnostic (True Metrix Glucose Test Strip) strip Start: 05-21-2019 End: 06-03-2019 Blood Sugar Diagnostic (True Metrix Glucose Test Strip) strip Start: 05-21-2019 End: 06-03-2019 Blood Sugar Diagnostic (True Metrix Glucose Test Strip) strip Start: 05-21-2019 End: 06-03-2019 Blood Sugar Diagnostic (True Metrix Glucose Test Strip) strip Start: 05-21-2019 End: 06-03-2019 Blood Sugar Diagnostic (True Metrix Glucose Test Strip) strip Start: 05-21-2019 End: 06-03-2019 Blood Sugar Diagnostic (True Metrix Glucose Test Strip) strip Start: 05-21-2019 End: 06-03-2019 Blood Sugar Diagnostic (True Metrix Glucose Test Strip) strip Start: 05-21-2019 End: 06-03-2019 Blood Sugar Diagnostic (True Metrix Glucose Test Strip) strip Start: 05-21-2019 End: 06-03-2019 Blood Sugar Diagnostic (True Metrix Glucose Test Strip) strip Start: 05-21-2019 End: 06-03-2019 Blood Sugar Diagnostic 1 EACH strip Start: 06-03-2019 End: 09-29-2019 Blood Sugar Diagnostic (True Metrix Glucose Test Strip) strip Start: 05-21-2019 End: 06-03-2019 Blood Sugar Diagnostic 1 EACH strip Start: 06-03-2019 End: 09-29-2019 Blood Sugar Diagnostic (True Metrix Glucose Test Strip) strip Start: 05-21-2019 End: 06-03-2019 Blood Sugar Diagnostic 1 EACH strip Start: 06-03-2019 End: 09-29-2019 Goals Date Patient Goal Desired Activity /State Comment on above: Self-Management Plan : Anxiety/Depression Patient Stated Goal: States she would like to worry less. Barriers to success: stress Plan for overcoming my barriers: Will try counseling- will call to schedule. Encouraged and recommended by provider. Confidence: 01/09 Date goal set: 10/01/16 Patient given educational materials below via AVS. Patient received counseling about current lifestyle goal. Patient was encouraged to take medications as prescribed. Discussed the importance of counseling. Discussed social support resources. Discussed potentially disabling symptoms of their anxiety/depression, which could potentially render them unable to function adequately. Provider Goal: To find the value of finding pleasure in daily living. Discussed how relationships, personal fulfillment, and optimism can work together to combat anxiety/depression. Patient given after visit summary which includes educational information on anxiety and depression. Discussed use, benefit, and side effects of prescribed medications and barriers to medication compliance addressed, if applicable. All patient questions answered and patient voiced understanding. Patient was given a copy of this, and was advised to call if any questions. Formatting of this n ote might be different from the original. Self-Management Plan: Anxiety/Depression Patient Stated Goal: States she would like to worry less. Barriers to success: stress Plan for overcoming my barriers: Will try counseling- will call to schedule. Encouraged and recommended by provider. Confidence: 01/09 Date goal set: 10/01/16 Patient given educational materials below via AVS. Patient received counseling about current lifestyle goal. Patient was encouraged to take medications as prescribed. Discussed the importance of counseling. Discussed social support resources. Discussed potentially disabling symptoms of their anxiety/depression, which could potentially render them unable to function adequately. Provider Goal: To find the value of finding pleasure in daily living. Discussed how relationships, personal fulfillment, and optimism can work together to combat anxiety/depression. Patient given after visit summary which includes educational information on anxiety and depression. Discussed use, benefit, and side effects of prescribed medications and barriers to medication compliance addressed, if applicable. All patient questions answered and patient voiced understanding. Patient was given a copy of this, and was advised to call if any questions. Mental Status Date Assessment Result Facility 02-25-2025 Cognitive function Voice/Name [facility] Work Phone: 01-03-2025 Cognitive function Level Of Cons ciousness Awake;Alert;Appropriate;Follow s Commands [facility] Work Phone: 12-11-2024 Cognitive function Awake;Alert;Appropriat e [facility] Work Phone: 09-22-2024 Cognitive function Level Of Cons ciousness Awake;Alert;Appropriate [facility] Work Phone: 09-22-2024 Cognitive function Voice/Name [facility] Work Phone: 12-26-2023 Cognitive function Level Of Cons ciousness Awake;Alert;Appropriate;Follow s Commands [facility] Work Phone: Clinical Notes 12-25-2021 to 02-25-2025 Note Date & Type Note Facility 02-25-2025 Discharge summary [facility] 02-25-2025 Radiology Diagnostic study note [facility] Imaging Services [address], [place] [address] Chest 1 View (Portable) MR#: [id number] Acct: [id number] Name: ARMIN VIVAS Rep #: [id number] : 1985 F 39 From: Galen Ruiz MD PCP: Dr. Azael Irene MD Status: REG ER Study:Chest 1 View (Portable) Date of Exam: 02/25/25 Exam# [id number] Ordering Dr: Rad Wilkerson MD PROCEDURE: CHEST 1 VIEW (PORTABLE) 02/25/2025 REASON FOR EXAM: CHEST PAIN TECHNIQUE: Frontal view of the chest. COMPARISON: Prior chest radiograph dated June 07, 2024. FINDINGS: Hardware: EKG electrodes are seen Heart: Cardiac and mediastinal contours are stable. Lungs: The lungs are clear. Bones: The bones are unremarkable. Other: RAD/Chest 1 View (Portable) IMPRESSION: No Acute Findings. Reading Location: [facility] CC: Dr. Rad Wilkerson MD; Dr. Azael Irene MD ~ Medical Case Manager: Signed [facility] 02-25-2025 Discharge summary Note Date/Time February 25, 2025 4:37pm [facility] Medical Records Department [address] [place] [address] Emergency Department Summary 02/25/25 MR#: [id number] Acct: [id number] Name: ARMIN VIVAS Rep #:[id number] : 1985 39 From: Rad Wilkerson MD PCP: Dr. Azael Irene MD Status:REG ER Location: ED HPI History of Present Illness Chief Complaint: Chest Other Narrative Narrative: 39-year-old female past medical history of Crohn disease presents with nausea and vomiting, right ear pain that she has had for a month, and left-sided chest pain that she has had since around 8 PM yesterday evening, over 12 hours ago. Regarding her right ear pain, she states been hurting her for about a month. Noloss of hearing. Recently went swimming as well. Yesterday evening she developed nausea and vomiting consistent with her previous Crohn disease. She states her nausea is improving, but she has had left-sided chest pain since 8 PM. Its under her breast, and radiates upward towards her shoulder. It is mildly pleuritic in nature. She relates history that she thinks she has a family history of a clotting disorder. She herself has never been diagnosed with 1. She was directed by her primary care provider to present to the emergency department regarding her chest pain. No fevers or chills, no cough. [facility] Medical History History of steroid therapy Dietary restriction Hidradenitis suppurativa Wears glasses Wears contact lenses History of ulceration Gastric reflux Smoker History of irregular heartbeat Groin abscess Left ovarian cyst Stephanie Tobar infection Colitis Gestational diabetes Crohns disease Depression Anxiety Home Medications ?Medication ?Instructions ?Recorded ?Last Taken ?Type alprazolam 1 mg tablet 1 mg PO TID PRN anxiety 10/3107/09/24 History cetirizine 10 mg tablet 10 mg PO DAILY PRN allergy s ymptoms 11/15/23 07/09/24 History pantoprazole 40 mg tablet,delayed 40 mg PO QDAY #90 ta bs 11/09/24 02/24/25 Rx release acetaminophen 500 mg tablet 1,000 mg PO Q6H PRN fever or pain 02/25/25 02/25/25 History cholestyramine (with sugar) 4 gram 4 g PO DAILY 02/24/25 History powder for susp in a packet (Questran) citalopram 20 mg tablet 20 mg PO DAILY 02/25/2502/01 History diphenoxylate-atropine 2.5 1 tab PO 4X/DAY PRN diarrhe a 02/25/25 Unknown History mg-0.025 mg tablet (Lomotil) lisdexamfetamine 30 mg capsule 30 mg PO DAILY 02/25/25 02/24/25 History ondansetron 4 mg disintegrating 4 mg PO Q8H PRN PRN Na usea #15 tabs 02/25/25 Unknown Rx tablet ondansetron 4 mg disintegrating 4 mg PO Q8H PRN nausea 02/25/25 Unknown History tablet promethazine 25 mg tablet 25 mg PO Q6H PRN Nausea 02/0102/25/25 History Allergy/AdvReac Type Severity Reaction Status Date / Time nectarine Allergy Angioedema Verified 02/25/25 13:19 metoclopramide (From Reglan) AdvReac headache Verified 02/25/25 13:19 Family History Mother Heart disease Pacemaker Grandfather Diabetes Grandmother Diabetes Surgical History History of cholecystectomy History of esophagogastroduodenoscopy (EGD) (~2017) History of colonoscopy (~2017) History of wisdom tooth extraction Social History household members: spouse Smoking Status: Current every day smoker tobacco type: cigarettes alcohol intake: never substance use type: does not use caffeine: Yes what type of physical activity do you participate in: walking seatbelt use: always do you feel safe at home: Yes additional social history: [employer] ROS ROS ED ROS Narrative Review of systems positive for left-sided chest pain. Underneath left breast and radiating upward toward shoulder, pleuritic, no fevers or chills, no cough. 1 month of right ear pain, no loss of hearing, recent swimming. Nausea and vomiting associated with history of Crohn disease, resolving. EXAM Physical Exam Narrative Exam Narrative: Afebrile. Vital signs noted. Nontoxic-appearing. Cardiovascular examination reveals a regular rate and rhythm. Lungs clear to auscultation bilaterally. Abdomen soft, nontender, with positive bowel sounds. Neurological examination nonfocal, nonlateralizing. HEENT examination reveals mild swelling of the rightcanal, TM without erythema, no mastoid tenderness or erythema bilaterally. Const Vital Signs: 02/25/25 13:17 02/25/25 13:55 02/25/25 15:16 Temperature 97.8 F Temperature Source Temporal Pulse Rate 19 L Respiratory Rate 22 H Respiratory Effort Normal Respiratory Pattern Normal Blood Pressure 135/71 H Blood Pressure Mean 92 Pulse Ox 98 Oxygen Delivery Method Room Air Room Air 02/25/25 15:17 Temperature Temperature Source Pulse Rate 75 Respiratory Rate 12 Respiratory Effort Respiratory Pattern Blood Pressure 138/96 H Blood Pressure Mean 110 Pulse Ox 99 Oxygen Delivery Method Room Air MDM MDM MDM Narrative Medical decision making narrative: Regarding her right ear pain, differential includes otitis media versus otitis externa, I have low suspicion for mastoiditis. Based on her clinical exam she will be treated with Corticosporin drops. Regarding her left-sided chest pain, differential diagnosis includes but not limited to pneumonia versus pneumothoraxversus pulmonary embolism versus ACS. History and physical does not support pneumonia as she does not have a fever or cough, and history and physical does not support pneumothorax. EKG was obtained and interpreted by myself independently as normal sinus rhythm with sinus arrhythmia at [address] changes. No STEMI. I reviewedher prior records. On review of her laboratory work, she has slight leukocytosis of 14.0 which may be demargination from vomiting but in review of prior labs she has had almost chronic leukocytosis. Hemoglobin 14.0, hrnbdelmin49.1, platelet count slightly elevated at 471. D-dimer is negative at less than0.27 so I doubt pulmonary embolism. Serum is negative. Sodium normalat 138 and potassium 3.54, carbon dioxide low at 18.3 causing slight elevation of anion gap at 16. Glucose 90, I doubt diabetic ketoacidosis with a low glucose. BUN 15 and creatinine low at 0.66. High-sensitivity troponin is less than 6. I feel this is greater than a 6-hour troponin I do not feel that she requires serial enzymes. Chest x-ray interpreted by myself independently shows no evidence of an acute process, no pneumonia or pneumothorax. I reviewed the radiology report which confirms my independent interpretation. She was given Toradol for analgesia. Upon repeat examination, she states she ismildly anxious and usually takes alprazolam 1 mg but has not taken it today. She will be given Ativan 1 mg IV prior to discharge. I do not feel she requiresadmission or observation and I do not feel she requires narcotic pain medication. She states that Dr. Mishra is her fast food fry cook that usually takes care of any Crohn exacerbation. Additionally, her sister states that she was supposed to start Humira injections. I feel she can be discharged to follow-up. Return instructions to the emergency department were reviewed. She also stated that Zofran works better than her Phenergan for nausea and vomiting so she was written a prescription for 15 ODT's. Disposition is discharged home in stable condition. History & Record Review Discussion w/independent historian: Patient Additional record(s) reviewed:: Prior ED visit and Prior labs Lab Data Attestation: I reviewed the patient's lab results. Labs: Laboratory Results - last 24 hr 02/25/25 02/25/25 02/25/25 13:50 13:52 15:12 WBC 14.0 H RBC 4.78 Hgb 14.0 Hct 41.1 MCV 86.0 MCH 29.3 MCHC 34.1 RDW Std Deviation 41.4 RDW Coeff of Dimitrios 13.3 Plt Count 471 H MPV 10.4 Immature Gran % (Auto) 0.600 Neut % (Auto) 57.4 Lymph % (Auto) 32.9 [place] % (Auto) 6.6 Eos % (Auto) 1.9 Baso % (Auto) 0.6 Absolute Neuts (auto) 8.0 H Absolute Lymphs (auto) 4.59 H Nucleated RBC % 0 D-Dimer Quant (PE/DVT) < 0.27 L Sodium 138 Potassium 3.5 Chloride 104 Carbon Dioxide 18.3 L Anion Gap 16 H BUN 15 Creatinine 0.66 L Estim Creat Clear Calc 111.95 Est GFR (MDRD) Non-Af 116 BUN/Creatinine Ratio 22.6 H Glucose 90 Calcium 9.8 Troponin T High Sens < 6 Lipase 28 Serum , Qual NEGATIVE Radiography Diagnostic Testing: Clinical Impression(s) from Imaging Studies Chest X-Ray 02/25/25 15:12 IMPRESSION: No Acute Findings. Reading Location: [facility] Discharge Plan Triage Chief Complaint: Chest Other Other Complaint: Ear Problem ED Provider: Rad Wilkerson Dx/Rx/DC Orders Clinical Impression: Chest pain, Nausea and vomiting, Otitis externa of right ear, Anxiety Instructions: ED Anxiety Reaction, ED Chest Pain, Uncertain Cause, ED Pain, Acute, Uncertain Cause Prescriptions: New ondansetron 4 mg tablet,disintegrating 4 mg PO Q8H PRN PRN (Reason: Nausea) Qty: 15 0RF No Action alprazolam 1 mg tablet 1 mg PO TID PRN (Reason: anxiety) cetirizine 10 mg tablet 10 mg PO DAILY PRN (Reason: allergy symptoms) pantoprazole 40 mg tablet,delayed release (DR/EC) 40 mg PO QDAY Qty: 90 1RF Rx Instructions: take 30 minutes before breakfast every morning citalopram 20 mg tablet 20 mg PO DAILY acetaminophen 500 mg tablet 1,000 mg PO Q6H PRN (Reason: fever or pain) lisdexamfetamine 30 mg capsule 30 mg PO DAILY ondansetron 4 mg tablet,disintegrating 4 mg PO Q8H PRN (Reason: nausea) diphenoxylate-atropine [Lomotil] 2.5-0.025 mg tablet 1 tab PO 4X/DAY PRN (Reason: diarrhea) promethazine 25 mg tablet 25 mg PO Q6H PRN (Reason: Nausea) cholestyramine (with sugar) [Questran] 4 gram powder in packet 4 g PO DAILY Rx Instructions: administer w/meal; avoid other meds within 1hr before or 4-6hr after dose Primary Care Provider: Azael Irene Referrals: Azael Irene MD [Primary Care Provider] - As soon as possible Friend,Jose Guadalupe, DO [Med Staff - Active Staff] - As soon as possible Print Language: Croatian Disposition Disposition: Home, Self Care What to do if you have Problems For any increased pain, shortness of breath, bleeding, nausea or vomiting, chestpain, or any unexpected problems, contact your Primary Care Provider. Call [facility] ([phone]) or report to the closest Emergency Room. Call 911 if necessary. 02/25/25 1637 <Electronically signed by Rad Wilkerson MD> Cosigner Signature (if applicable): CC: Dr. Azael Irene MD ~ Signed [facility] Work Phone: 1(220) 862-201403-10-2025 Evaluation note* Diagnosis Onset Date Resolution Status Admit Date Diarrhea acute November 09 9:39am [facility] Work Phone: 1(304) 337-395001-21-2025 [facility]12-27-2024 Evaluation note* Diagnosis Onset Date Resolution Status Admit Date Crohn's disease acute August 28, 2024 2:18pm Cholelithiasis inactive August 032023 2:18pm Right upper quadrant abdomin al pain inactive August 28, 2:18pm Crohn's disease acute September 102024 9:33am GERD (gastroesophageal reflu x disease) acute September 10 9:33am Cholelithiasis inactive September 9:33am Right upper quadrant abdomin al pain inactive September 10 9:33am Diarrhea acute November 09 9:39am [facility] Work Phone: [phone]) 589-565611-08-2024 [facility]07-25-2024 History of Present illness Narrative* Mikey Angel PA-C - 03/26/2024 1:00 PM EDT ESTABLISHED PATIENT 03/26/2024 Last Visit in Dermatology: 01/23/2024 with Lavon Dewitt APRN.DAM TENDER Chief Complaint: Derm Problem HPI: Armin Vivas is a 38 year old female. Patient presents with: Derm Problem #1: Hidradenitis suppurativa Location: Left Medial Thigh, Pubic, Right Medial Thigh Duration: ongoing, current flare x2 weeks Symptoms/Course: x1 (right groin) flared up and painful Current Treatment: - Clindamycin Phosphate (CLEOCIN T) 1 % lotion - chlorhexidine (HIBICLENS) 4 % external liquid - spironolactone (ALDACTONE) 50 mg tablet- patient discontinued 1 week prior due to effecting mood Past Treatment: - ILK 5mg/mL x 0.7mL over 1 inflamed cyst at denny -Patient feels that she has flares of HS around her menses. Patient is not currently on any form ofcontraceptive. -Patient has a history of Crohn's disease for which she is taking dicyclomine. -Patient states that Doxycycline can be hard on her stomach at times Pertinent History: History of skin cancer: No History of atypical nevi: No History of blistering sunburns / tanning bed use: No Organ transplant / Immunosuppression: No Pacemaker / Defibrillator / Heart Valve Replacement: No / : No Family history of skin cancer: Yes, paternal grandfather (unknown type) PAST MEDICAL HISTORY Diagnosis Date Abdominal pain Anxiety C. difficile diarrhea Colitis Dx not confirmed 2012, 1 episode Crohn's colitis (HCC) Depression Diarrhea Dysphagia GERD (gastroesophageal reflux disease) Nausea & vomiting Ulcerative colitis (HCC) Social History Tobacco Use Smoking status: Every Day Packs/day: .5 Types: Cigarettes Smokeless tobacco: Never Vaping Use Vaping Use: Never used Substance Use Topics Alcohol use: No Drug use: No ALLERGIES Allergen Reactions Morphine Other: See Comments "Heart feels funny", has safely taken percocet, dilaudid Nectarine Other: See Comments Angioedema Other Ellsworth-3s Swelling NECTARINES Reglan [Metoclopram* Other: See Comments Blurry vision Current Outpatient Medications Medication Sig diphenoxylate-atropine (LOMOTIL) 2.5-0.025 mg per tablet Take 1 tablet by mouth as needed. Clindamycin Phosphate (CLEOCIN T) 1 % lotion Apply to affected areas twice daily chlorhexidine (HIBICLENS) 4 % external liquid Wash affected area one to two times daily dicyclomine (BENTYL) 20 mg tablet Take 1 tablet by mouth four times daily as needed. ondansetron orally disintegrating (ZOFRAN ODT) 4 mg disintegrating tablet Take 1 tablet by mouth every 8 hours as needed for nausea/vomiting. QUEtiapine (SEROQUEL) 25 mg tablet Take 25 mg by mouth daily at bedtime. promethazine (PHENERGAN) 12.5 mg tablet TAKE 1 TABLET BY MOUTH EVERY 6 HOURS NEEDED ALPRAZolam (XANAX) 1 mg tablet Take 1 mg by mouth four times daily as needed. citalopram hydrobromide (CELEXA ORAL) Take 30 mg by mouth. acetaminophen (TYLENOL) 325 mg tablet Take 650 mg by mouth. fluticasone (FLONASE) 50 mcg/actuation nasal spray Use 1 [place] in the nose. Loperamide HCl (IMODIUM) 2 mg tab Take 1 tablet by mouth four times daily as needed. L.ACIDOPH/B.LONG/L.PLANT/B.LAC (PROBIOTIC ACIDOPHILUS BEADS ORAL) Take by mouth. Cetirizine 10 mg cap Take 10 mg by mouth once daily. doxycycline (VIBRA-TABS) 100 mg tablet Take 1 tablet by mouth two times a day for 14 days. spironolactone (ALDACTONE) 50 mg tablet Take 1 tablet by mouth once daily. (Patient not taking: Reported on 03/26/2024) pantoprazole DR (PROTONIX) 40 mg tablet Take 1 tablet by mouth twice daily. (Patient not taking: Reported on 09/17/2023) ROS: Skin as above. PHYSICAL EXAM: Rose Skin Type: II The patient is a pleasant female in no apparent distress. Alert and oriented x 3. Appears well developed, well nourished, and in otherwise good health. A skin exam of the right groin was performed. IMPRESSION Right Genitocrural Fold (2) -Skin positive for painful nodules, purulent drainage, and limited range of motion secondary to pain ASSESSMENT & PLAN Hidradenitis Suppurativa, Skin Pain, Disturbance of Skin Sensation - Overall, flared, not at therapeutic goal - Discussed etiology and chronic nature of disease, no cure at this time, goal is to help reduce flare-ups, heal wounds, relieve pain, prevent worsening - Treatment options discussed Plan: - Continue HIBICLENS wash 1-2 times daily for open wounds; warm water soak in shower or with soft cloth - Continue CLINDAMYCIN 1% lotion 1-2 times daily for 2 weeks with flares then 2- 3 times weekly for maintenance - Start DOXYCYCLINE 100 mg twice daily x 2 weeks; Take with food and large glass of water. Do not take with calcium based products. May cause GI upset, headache, photosensitivity - INTRALESIONAL KENALOG 5 mg/cc to affected areas on right inguinal fold - Discussed oral contraceptive pills vs Humira (adalimumab) to manage crohn's/hidradenitis suppurativa vs surgical excision of lesion with plastic surgery. Patient will consider discussing oral contraceptive pills with employment case manager at next appointment. PROCEDURE:INTRALESIONAL TRIAMCINOLONE - Discussed side effects including pain, bleeding, thinning and discoloration of skin. - Verbal consent obtained. - Area cleaned with alcohol and a total of 0.65 mL of Kenalog 5 mg/cc was injected intralesionally.Pt tolerated well. Bandage applied. LOCATION: right inguinal fold # OF LESIONS TREATED: 2 Mikey Angel PA-C Follow Up: 6 weeks Return PRN or sooner for questions and concerns. Attestation: Intake completed by: Haylee Argueta LPN The documentation for this note was completed by Haylee Argueta LPN acting as scribe for RUPINDER Gomes on March 26, 2024 I agree with the Chief Complaint, ROS, and Past Histories independently gathered by the clinical production support specialist and the remaining scribed note accurately describes my personal service to the patient. Mikey Angel PA-C March 26, 2024 3:03 PM Medical Decision Making: Problems: Moderate: 1+ chronic illnesses with change Risk: Moderate: Drug management Medical Decision Making Level: 4 - Moderate [facility] Telephone encounter Note * Telephone Encounter - Radha Tong RN - 02/10/2024 4:03 PM EDT S: Patient spoke with [facility] nurse regarding left sided chest/rib pain. B: Onset of symptoms/concern about a week ago, worsened today. Denies injury. A: She reports pain is intermittent and dependent on certain movements. Reports pain lasts more than a few seconds. Pain is now radiating around and to the back. She reports nausea. She reports shortness of breath with exertion and sweating. She reports pain is under the left breast, rates pain 7/10. She notes urine has a strong odor and reports urinary frequency. R: Patient advised to have someone take her to the ED. She states that she will have her come take her. NATE Rn reviewed with patient symptoms that would necessitate calling 911, she verbalized understanding. Care advice reviewed with patient. Patient understands care advice. No further needs at this time. Reason for Disposition [1] Chest pain (or "angina") comes and goes AND [2] is happening more often (increasing in frequency) or getting worse (increasing in severity) (Exception: Chest pains that last only a few seconds.) Protocols used: Chest [id number]-JL [facility] [id number] Miscellaneous Notes* Telephone Encounter - Radha Tong RN - 02/10/2024 4:03 PM EDT S: Patient spoke with [facility] nurse regarding left sided chest/rib pain. B: Onset of symptoms/concern about a week ago, worsened today. Denies injury. A: She reports pain is intermittent and dependent on certain movements. Reports pain lasts more than a few seconds. Pain is now radiating around and to the back. She reports nausea. She reports shortness of breath with exertion and sweating. She reports pain is under the left breast, rates pain 7/10. She notes urine has a strong odor and reports urinary frequency. R: Patient advised to have someone take her to the ED. She states that she will have her come take her. NATE Rn reviewed with patient symptoms that would necessitate calling 911, she verbalized understanding. Care advice reviewed with patient. Patient understands care advice. No further needs at this time. Reason for Disposition [1] Chest pain (or "angina") comes and goes AND [2] is happening more often (increasing in frequency) or getting worse (increasing in severity) (Exception: Chest pains that last only a few seconds.) Protocols used: Chest Pild-CDGPI-RC documented in this [facility]05-23-2024 NoteHNO ID: [id number] Author: LAVON DEWITT APRN.BASSEM Service: ? Author Type: Nurse Practitioner Type: Progress Notes Filed: 01/23/2024 11:37 Note Text: Department of Dermatology Lavon Dewitt APRN.BASSEM Last visit in Dermatology: 09/17/2023 Objective/Assessment/Plan 1. Skin pain 2. Hidradenitis suppurativa Left Medial Thigh, Pubic, Right Medial Thigh One erythematous cystic nodule to the right inguinal fold with few scattered open comedones with subacute erythematous papules to the bilateral inguinal area and suprapubic region. -recommend ILK x1 lesion today: ILK 5mg/mL x 0.7mL over 1 inflamed cyst after cleansing with alcohol. Wound care instructions given, patient verbalized understanding. -pending labs, start 50mg spirolactone daily by mouth -continue cleansing with hibiclens daily when showering -continue twice daily application of clindamycin lotion to the affected areas -R/b/a for the medication(s) including possible side effects discussed and reviewed with patient. Related Procedures * Comp Metabolic Panel Related Medications Clindamycin Phosphate (CLEOCIN T) 1 % lotion Apply to affected areas twice daily chlorhexidine (HIBICLENS) 4 % external liquid Wash affected area one to two times daily triamcinolone acetonide 5 mg injection (KeNALog 10) spironolactone (ALDACTONE) 50 mg tablet Take 1 tablet by mouth once daily. Follow-up as noted below or as needed. Chief Complaint: Patient presents with: Hair/Scalp Problem Subjective and Objective HPI: Armin Vivas is a 38 year old female who presents for: Follow up hidradenitis suppurativa. Patient using clindamycin and Hibiclens. Notes mild improvement with this. Completed doxycycline 20mg twice daily and this was helpful, but has been off the medication for over 1 month. She notes a suspected hormonal flare associated with her flares on her skin. Over the past ~1 week, she notes a very painful lesion develop on the right inguinal fold. She states she has not seen any improvement Past medical history is reviewed. Medication list is reviewed. Physical Exam included: bilateral lower extremities and external genitalia Intake information obtained by Lupe Segura APRN. CNP I have seen and evaluated the patient and discussed the case with the PA/FEEDER ASSOCIATE trainee. I agree with the assessment and plan as documented in the PA/FEEDER ASSOCIATE's note. [facility]on Dewitt APRN.[facility]PHarrison [facility]05-[facility] History of Present illness Narrative* Lavon Dewitt APRN.CNP - 01/23/2024 11:15 AM EDT Images from the original note were not included. Department of Dermatology Lavon Dewitt APRN.CNP Last visit in Dermatology: 09/17/2023 Objective/Assessment/Plan 1. Skin pain 2. Hidradenitis suppurativa Left Medial Thigh, Pubic, Right Medial Thigh One erythematous cystic nodule to the right inguinal fold with few scattered open comedones with subacute erythematous papules to the bilateral inguinal area and suprapubic region. -recommend ILK x1 lesion today: ILK 5mg/mL x 0.7mL over 1 inflamed cyst after cleansing with alcohol. Wound care instructions given, patient verbalized understanding. -pending labs, start 50mg spirolactone daily by mouth -continue cleansing with hibiclens daily when showering -continue twice daily application of clindamycin lotion to the affected areas -R/b/a for the medication(s) including possible side effects discussed and reviewed with patient. Related Procedures * Comp Metabolic Panel Related Medications Clindamycin Phosphate (CLEOCIN T) 1 % lotion Apply to affected areas twice daily chlorhexidine (HIBICLENS) 4 % external liquid Wash affected area one to two times daily triamcinolone acetonide 5 mg injection (KeNALog 10) spironolactone (ALDACTONE) 50 mg tablet Take 1 tablet by mouth once daily. Follow-up as noted below or as needed. Chief Complaint: Patient presents with: Hair/Scalp Problem Subjective and Objective HPI: Armin Vivas is a 38 year old female who presents for: Follow up hidradenitis suppurativa. Patient using clindamycin and Hibiclens. Notes mild improvementwith this. Completed doxycycline 20mg twice daily and this was helpful, but has been off the medication for over 1 month. She notes a suspected hormonal flare associated with her flares on her skin. Over the past ~1 week, she notes a very painful lesion develop on the right inguinal fold. She states she has not seen any improvement Past medical history is reviewed. Medication list is reviewed. Physical Exam included: bilateral lower extremities and external genitalia Intake information obtained by Lupe Segura APRN. DAM TENDER I have seen and evaluated the patient and discussed the case with the PA/FEEDER ASSOCIATE trainee. I agree with the assessment and plan as documented in the PA/FEEDER ASSOCIATE's note. Lavon Dewitt APRN.DAM TENDER documented in this encounterPark[facility]05-09-2024 Evaluation + Plan note* Assessment & Plan Note - Azael Irene MD - 01/09/2024 7:55 AM EDT Associated Problem(s): Lymphadenitis Augmentin 875 twice daily x [address] [facility] [address] [facility] [id number] Evaluation + Plan note* Assessment & Plan Note - Azael Irene MD - 01/09/2024 7:55 AM EDTAssociated Problem(s): Sialoadenitis of submandibular gland We will start her on Augmentin 875 twice a day for 10 days. She is to get sergio or something equivalently sour and suck on those 4 times a day. [facility] [id number] Miscellaneous Notes* Assessment & Plan Note - Azael Irene MD - 01/09/2024 7:55 AM EDTAssociated Problem(s): Lymphadenitis Augmentin 875 twice daily x 10 days * Assessment & Plan Note - Azael Irene MD - 01/09/2024 7:55 AM EDT Associated Problem(s): Sialoadenitis of submandibular gland We will start her on Augmentin 875 twice a day for 10 days. She is to get sergio or something equivalently sour and suck on those 4 times a day. documented in this [facility]05-09-2024 History of Present illness Narrative* Angelina Culp MA - 01/09/2024 7:30 AM EDT Patient verified by last name and date of . * Azael Irene MD - 01/09/2024 7:30 AM EDT Images from the original note were not included. 01/09/2024 Armin Vivas (: 1985) is a 38 y.o. female , Established patient, here for evaluation of the following chief complaint(s): Swollen Glands (Left side and very painful) ASSESSMENT/PLAN: 1. Sialoadenitis of submandibular gland Assessment & Plan: We will start her on Augmentin 875 twice a day for 10 days. She is to get sergio or something equivalently sour and suck on those 4 times a day. Orders: - CBC auto differential - C-reactive protein - Sedimentation rate, automated 2. Lymphadenitis Assessment & Plan: Augmentin 875 twice daily x 10 days Orders: - CBC auto differential - C-reactive protein - Sedimentation rate, automated Follow up if symptoms worsen or fail to improve. SUBJECTIVE/OBJECTIVE: HPI -Armin comes in today complaining of pain on the right side of her face and lower jaw and neckthat even extends down into her supraclavicular area. She said this started about 4 days ago she woke up in the morning was tender and has progressively worsened. Her ear is actually hurting today. She says she has not had a sore throat and or any difficulty swallowing. And she is not aware of any fevers or chills. Review of Systems Constitutional: Negative for chills and fever. HENT: Positive for ear pain and facial swelling. Negative for dental problem, rhinorrhea, sinus pressure and sore throat. Respiratory: Negative for shortness of breath. Cardiovascular: Negative for chest pain and palpitations. Vitals: 01/09/24 0727 BP: 102/62 Pulse: 88 SpO2: 95% Weight: 176 lb (79.8 kg) Height: 5' 4" (1.626 m) Physical Exam Vitals and nursing note reviewed. Constitutional: General: She is not in acute distress. Appearance: Normal appearance. HENT: Head: Normocephalic and atraumatic. Right Ear: Tympanic membrane, ear canal and external ear normal. Left Ear: Tympanic membrane, ear canal and external ear normal. Mouth/Throat: Mouth: Mucous membranes are moist. Pharynx: Oropharynx is clear. Comments: Bimanual palpation of the submandibular sublingual saliva glands are tender to touch slightly swollen. She has good dentition and tonsillar pillars are normal. Eyes: Extraocular Movements: Extraocular movements intact. Pupils: Pupils are equal, round, and reactive to light. Neck: Comments: Anterior cervical chain on the left side is tender with some mild lymphadenopathy. Cardiovascular: Rate and Rhythm: Normal rate and regular rhythm. Heart sounds: Normal heart sounds. No murmur heard. Pulmonary: Effort: Pulmonary effort is normal. Breath sounds: Normal breath sounds. Musculoskeletal: Cervical back: Neck supple. Tenderness present. Lymphadenopathy: Cervical: Cervical adenopathy present. Neurological: Mental Status: She is alert. An electronic signature was used to authenticate this note. Azael Irene MD 01/09/2024 7:55 AM documented in this [facility]04-25-2024 Hospital Discharge instructions Additional Instructions You need to follow-up outpatient. Continue taking medication as prescribed. Make sure that you are taking Protonix 40 mg in the morning.[facility] Work Phone: 1(503) 264-712603-13-2024 NoteRefer to Provider: FRIEND JOSE GUADALUPE Address: [address], [address] Called Armin, Left a message to return call. Referral was entered for her.[facility]03-13-2024 Telephone encounter Note* Telephone Encounter - Celine Coleman - 11/13/2023 1:02 PM EDT Message released to patient as written. Patient's further questions if applicable: Pt had no questions. Were all questions from office addressed or relayed to the patient from encounter: Yes [facility] [id number] Miscellaneous Notes* Telephone Encounter - Celine Coleman - 11/13/2023 1:02 PM EDT Message released to patient as written. Patient's further questions if applicable: Pt had no questions. Were all questions from office addressed or relayed to the patient from encounter: Yes * Telephone Encounter - Margarita Lang MA - 11/13/2023 11:21 AM EDT Refer to Provider: RA TADHSAAN Address: [address], [address] Called Armin, Left a message to return call. Referral was entered for her. * Telephone Encounter - Azael Irene MD - 11/13/2023 11:03 AM EDT Referral done * Telephone Encounter - Brandon Davalos - 11/13/2023 9:03 AM EDT Name of caller: Armin Contact phone number: [phone] Relationship to Patient: patient Provider: Maria Victoria Practice: [facility] Chief Complaint/Reason for Call: Patient went to ER on 11.10.2023 with extreme stomach pains radiating to her chest and back. Vomiting. 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 Patient needs a referral to this doctor. Please inform patient when completed. Please advise. Best time of day caller can be reached: any Patient advised that office/PCP has 24-48 business hours to return their call: Yes documented in this encounterSMedina [id number] Telephone encounter Note* Telephone Encounter - Margarita Lang MA - 11/13/2023 11:21 AM EDT Refer to Provider: JOSE GUADALUPE MISHRA Address: [address], [address] Called Armin, Left a message to return call. Referral was entered for her. [facility] [id number] Telephone encounter Note* Telephone Encounter - Azael Irene MD - 11/13/2023 11:03 AM EDT [facility]erral done [facility] [id number] Telephone encounter Note* Telephone Encounter - Brandon Davalos - 11/13/2023 9:03 AM EDT Name of caller: Armin Contact phone number: [phone] Relationship to Patient: patient Provider: Maria Victoria Practice: [facility] Chief Complaint/Reason for Call: Patient went to ER on 11.10.2023 with extreme stomach pains radiating to her chest and back. Vomiting. 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 Patient needs a referral to this doctor. Please inform patient when completed. Please advise. Best time of day caller can be reached: any Patient advised that office/PCP has 24-48 business hours to return their call: Yes [facility] [id number] Discharge summary Author Niyah Hankins [facility] November 10, 2023 11:02pm Note Date/Time November 10, 2023 6:2 2pm [facility] Medical Records Department [address] [place] [address] Emergency Department Summary 11/10/23 MR#: [id number] Acct: [id number] Name: ARMIN VIVAS Rep #:[id number] : 1985 37 From: Niyah Hankins MD PCP: Dr. Azael Irene MD Status:REG ER Location: ED HPI History of Present Illness Chief Complaint: Abd Pain Informant: patient Onset/Context/Timing Onset: Yesterday Narrative Narrative: Patient presents with epigastric abdominal pain that wraps around the lower ribsbilaterally with nausea and vomiting. She states she does have a history of Crohn's but this does not feel like her typical flare. She has had some chills but no fever. She has not had a bowel movement the past 2 days. She also reports having palpitations over the past couple days. [facility] Medical History Anxiety Colitis Crohns disease Depression Stephanie Tobar infection Gestational diabetes Left ovarian cyst Sleep apnea Home Medications citalopram 20 mg tablet 30 mg PO DAILY 07/12/21 [History Last Taken Unknown] diphenoxylate-atropine 2.5 mg-0.025 mg tablet (Lomotil) 1 tab PO 4X/DAY PRN PRN diarrhea 5 days #20 tabs 11/22/22 [Rx Last Taken Unknown] promethazine 25 mg tablet 25 mg PO Q6H PRN PRN Nausea #10 TABLETS 02/04/23 [Rx Last Taken Unknown] ondansetron 4 mg disintegrating tablet 4 mg PO Q8H PRN nausea and vomiting 3 days #9 tabs 03/26/23 [Rx Last Taken Unknown] naproxen 500 mg tablet 500 mg PO Q8H #30 tabs 06/20/23 [Rx Last Taken Unknown] dicyclomine 20 mg tablet 20 mg PO 4X/DAY PRN PRN abdominal pain 11/10/23 [History Last Taken Unknown] oxycodone-acetaminophen 5 mg-325 mg tablet (Percocet) 1 tab PO Q8H PRN pain 3 days #10 tabs 11/10/23 [Rx Last Taken Unknown] sucralfate 100 mg/mL oral suspension (Carafate) 10 ml PO BID PRN abdominal pain #400 mL 11/10/23 [Rx Last Taken Unknown] Allergy/AdvReac Type Severity Reaction Status Date / Time nectarine Allergy Angioedema Verified 11/10/23 17:57 metoclopramide [From Reglan] AdvReac headache Verified 11/10/23 17:57 Family History Mother Heart disease Pacemaker Grandfather Diabetes Grandmother Diabetes Surgical History History of colonoscopy (~2017) History of colonoscopy (~2017) History of esophagogastroduodenoscopy (EGD) (~2018) History of wisdom tooth extraction Social History household members: spouse Smoking Status: Light Smoker (<10/day) alcohol intake: never substance use type: does not use caffeine: Yes what type of physical activity do you participate in: walking seatbelt use: always do you feel safe at home: Yes additional social history: [employer] ROS ROS ED Constitutional Constitutional ED: Denies chills or fever(s) Eyes Eyes: Denies discharge from eye(s) ENT ENT ED: Denies discharge from eye(s), rhinorrhea or sore throat Cardiovascular Cardiovascular: Denies chest pain or palpitations Respiratory/Chest Respiratory/Chest: Denies cough or dyspnea Gastrointestinal Gastrointestinal: Reports abdominal pain, nausea and vomiting; Denies diarrhea Genitourinary Genitourinary ED: Denies dysuria Musculoskeletal Musculoskeletal: Reports back pain; Denies extremity pain Integumentary Denies Abrasions or rash Neurologic Neurologic: Denies headache(s) or weakness Psychiatric Psychiatric: Denies anxiety or depression Allergic/Immunologic Allergic/Immunologic ED: Denies lip swelling or urticaria EXAM Physical Exam Const Vital Signs: 11/10/23 17:57 11/10/23 18:03 11/10/23 20:19 Temperature 97.5 F L 97.5 F L 98 F Temperature Source Temporal Temporal Oral Pulse Rate 102 H 102 H 80 Respiratory Rate 20 H 20 H 14 Blood Pressure 128/78 H 128/78 H 135/76 H Blood Pressure Mean 94 94 95 Pulse Ox 95 95 99 Oxygen Delivery Method Room Air Room Air Room Air Positive well nourished and well developed General Appearance ED: well developed HEENT Reports moist mucous membranes Eyes EOMs intact bilaterally Chest Wall inspection of chest normal and palpation of chest normal Resp normal respiratory effort and clear to auscultation bilaterally Cardio Rate: tachycardic GI GI Narrative: Abdomen soft with upper abdominal tenderness. No guarding or rebound. Extremity normal to inspection Neuro oriented x3 and no sensory deficits noted Motor Exam: strength 5/5 throughout Psych mental status grossly normal Skin no rashes or lesions noted MDM MDM MDM Narrative Medical decision making narrative: Patient placed on school lunch monitor. EKG obtained to evaluate for cardiac arrhythmia/ischemia. IV line initiated. Labwork obtained to evaluate for leukocytosis, anemia, and electrolyte derangement. Patient given morphine, Zofran, and Protonix. IV fluids initiated. History & Record Review Discussion w/independent historian: Patient Lab Data Attestation: I reviewed the patient's lab results. Labs: Laboratory Results - last 24 hr 11/10/23 18:40 WBC 12.2 H RBC 4.95 Hgb 14.1 Hct 43.2 MCV 87.3 MCH 28.5 MCHC 32.6 RDW Std Deviation 42.8 RDW Coeff of Dimitrios 13.4 Plt Count 444 MPV 9.5 Immature Gran % (Auto) 0.500 Neut % (Auto) 60.1 Lymph % (Auto) 29.0 Fulton % (Auto) 7.4 Eos % (Auto) 2.0 Baso % (Auto) 1.0 Absolute Neuts (auto) 7.4 Absolute Lymphs (auto) 3.55 Nucleated RBC % 0 Sodium 141 Potassium 3.7 Chloride 104 Carbon Dioxide 28.0 Anion Gap 9 BUN 15 Creatinine 0.66 Estim Creat Clear Calc 119.88 Est GFR (MDRD) Af Amer 130 Est GFR (MDRD) Non-Af 107 BUN/Creatinine Ratio 22.7 H Glucose 96 Calcium 10.1 Total Bilirubin 0.30 Direct Bilirubin 0.06 AST 15 ALT 32 Alkaline Phosphatase 78 Total Protein 7.4 Albumin 3.9 Globulin 3.5 Lipase 41 Serum , Qual NEGATIVE Radiography Diagnostic Testing: Clinical Impression(s) from Imaging Studies Abdomen/Pelvis CT 11/10/23 19:56 IMPRESSION: There is marked thickening of the gastric wall at the inferior may represent gastric ulcer or gastritis. Electronically Signed: Marcus Beyer MD at 21:57 EDT , EKG Initial EKG: Attestation: I personally reviewed and interpreted this EKG as follows: Interpretation: Sinus Rhythm (Sinus at 90 with no acute ischemia.) Treatment and Re-Evaluation :: CBC reveals a white count of 12.2 with normal differential. Hemoglobin 14.1. Chemistry studies unremarkable. LFTs and lipase are normal. test negative. EKG is sinus rhythm with no evidence of acute ischemia. CT scan of the abdomen pelvis with IV contrast reveals thickening of the gastric wall at the inferior aspect which may represent gastric ulcer or gastritis. Patient was initially treated with morphine, Zofran, and Protonix. Due to continued pain she got IM Phenergan and Bentyl. When this did not relieve her symptoms she was given a dose of Dilaudid. At this time patient states her pain is starting to come back. She is given a GI cocktail and another small dose of Dilaudid. Patient states that the GI cocktail significantly helped her symptoms. I will give her a prescription for Carafate and a few Percocet for breakthrough pain. She will be referred to Dr. Mishra for GI follow-up, but was made aware that it might take some time to get in. She does have a GI doctor in [place] that she can follow-up with, but would like to get her care transferred here to [place] locally. Discharge Plan Triage Chief Complaint: Abd Pain ED Provider: Niyah Hankins Dx/Rx/DC Orders Clinical Impression: Gastritis Instructions: ED Gastritis (Adult) Prescriptions: New oxycodone-acetaminophen [Percocet] 5-325 mg tablet 1 tab PO Q8H PRN (Reason: pain) 3 Days Qty: 10 0RF sucralfate [Carafate] 100 mg/mL suspension 10 ml PO BID PRN (Reason: abdominal pain) Qty: 400 0RF No Action citalopram 20 mg tablet 30 mg PO DAILY Patient Comments: TAKE 1 & 1/2 (ONE AND ONE-HALF) TABLETS BY MOUTH ONCE DAILY diphenoxylate-atropine [Lomotil] 2.5-0.025 mg tablet 1 tab PO 4X/DAY PRN PRN (Reason: diarrhea) 5 Days Qty: 20 0RF promethazine [promethazine] 25 mg tablet 25 mg PO Q6H PRN PRN (Reason: Nausea) Qty: 10 0RF ondansetron 4 mg tablet,disintegrating 4 mg PO Q8H PRN (Reason: nausea and vomiting) 3 Days Qty: 9 0RF dicyclomine 20 mg tablet 20 mg PO 4X/DAY PRN PRN (Reason: abdominal pain) naproxen 500 mg tablet 500 mg PO Q8H Qty: 30 0RF Primary Care Provider: Azael Irene Referrals: Azael Irene MD [Primary Care Provider] - 1 Week if not improving Jose Guadalupe Mishra, [Med Staff - Active Staff] - As soon as possible Activity Restrictions/Additional Instructions: You can follow-up with your GI doctor in [place] until you can establish care herelocally. You have been provided with Dr. Mishra's number for referral. These appointments are often booked several months out. Disposition Disposition: Home, Self Care What to do if you have Problems For any increased pain, shortness of breath, bleeding, nausea or vomiting, chestpain, or any unexpected problems, contact your Primary Care Provider. Call [facility] ([phone]) or report to the closest Emergency Room. Call 911 if necessary. 11/10/232301 <Electronically signed by Niyah Hankins MD> Cosigner Signature (if applicable): CC: Dr. Azael Irene MD ~ Signed [facility] Work Phone: 1(261) 366-187701-16-2024 NoteHNO ID: [id number] Author: LAVON DEWITT APRN.DAM TENDER Service: ? Author Type: Nurse Practitioner Type: Progress Notes Filed: 09/17/2023 10:54 Note Text: Department of Dermatology Lavon Dewitt APRN.DAM TENDER 09/17/2023 Last visit in Dermatology: Visit date [...] Physical Exam included: External genitals Ban Delarosa APRN.BASSEM (training) I have seen and evaluated the patient and discussed the case with the PA/FEEDER ASSOCIATE trainee. I agree with the assessment and plan as documented in the PA/FEEDER ASSOCIATE's note. Lavon Dewitt APRN.[facility]10-10-2023 Miscellaneous Notes* Telephone Encounter - Michelle Oliver MD - 06/11/2023 2:49 PM EDT OUTSIDE MEDICAL RECORD REVIEW AND SUMMARY Referring Provider/Address: No referring provider defined for this encounter. Specialty: Women's Health Patient's Location: [facility] [address] Pages of records reviewed: < 10 Problem: [...] further referrals pending in person evaluation Michelle Oliver MD June 11, 2023 2:49 PM * Telephone Encounter - Milton Plunkett - 06/11/2023 9:29 AM EDT Received omr Scanned to chart [facility] Discharge summary Author Rikki Maddox [facility] May 03, 2023 6:10pm Note Date/Time May 03, 2023 3:39pm [facility] Medical Records Department [address] [place] [address] Emergency Department Summary 05/03/23 MR#: [id number] Acct: [id number] Name: ARMIN VIVAS Rep #:[id number] : 1985 37 From: Rikki Maddox MD PCP: Dr. Azael Irene MD Status:REG ER Location: ED HPI HPI - GI History of Present Illness Chief Complaint: Abd Pain Informant: patient Narrative Narrative: Patient presents with what she feels is a flareup of her Crohn's disease. Patient is not on any current medication other than as needed Zofran, Phenergan,Bentyl. She is not on any Biologics or steroids. She denies any prior abdominal surgeries for any conditions including Crohn's. She sees Dr. Jacob in [place]. Her last colonoscopy was probably a couple years. She has follow-up in 10 days already arranged. She states a week ago she was getting a little bit more cramping. 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 Since then she has hadmore cramping and discomfort. She has had nausea. She vomited a little bit today but she was also able to get some soup in today and keep it down. She states normally has 4 bowel movements a day that are soft but her bowel movements are much less and she really has not had 1 for about 2 days but she also has not been eating or drinking. She has never had an obstruction. She has no fevers. She has no urinary symptoms. Her abdomen is source essentially all over. Its not localized to one area. Nothing really makes it better and her home medicines are not working well for her. [facility] Medical History Anxiety Colitis Crohns disease Depression Stephanie Tobar infection Gestational diabetes Left ovarian cyst Sleep apnea Home Medications citalopram 20 mg tablet 30 mg PO DAILY 07/12/21 [History Last Taken Unknown] diphenoxylate-atropine 2.5 mg-0.025 mg tablet (Lomotil) 1 tab PO 4X/DAY PRN PRN diarrhea 5 days #20 tabs 11/22/22 [Rx Last Taken Unknown] promethazine 25 mg tablet 25 mg PO Q6H PRN PRN Nausea #10 TABLETS 02/04/23 [Rx Last Taken Unknown] ondansetron 4 mg disintegrating tablet 4 mg PO Q8H PRN nausea and vomiting 3 days #9 tabs 03/26/23 [Rx Last Taken Unknown] doxycycline monohydrate 100 mg capsule 100 mg PO BID #20 caps 04/29/23 [Rx Last Taken Unknown] oxycodone-acetaminophen 5 mg-325 mg tablet 1 tab PO Q6H PRN PRN Pain 3 days #12 TABLETS 05/03/23 [Rx Last Taken Unknown] prednisone 20 mg tablet 40 mg (2 x 20 mg) PO DAILY 5 days #10 TABLETS 05/03/23 [Rx Last Taken Unknown] Allergy/AdvReac Type Severity Reaction Status Date / Time nectarine Allergy Angioedema Verified 05/03/23 15:21 metoclopramide [From Reglan] AdvReac headache Verified 05/03/23 15:21 Family History Mother Heart disease Pacemaker Grandfather Diabetes Grandmother Diabetes Surgical History History of colonoscopy (~2017) History of colonoscopy (~2017) History of esophagogastroduodenoscopy (EGD) (~2017) History of wisdom tooth extraction Social History household members: spouse Smoking Status: Light Smoker (<10/day) alcohol intake: never substance use type: does not use caffeine: Yes what type of physical activity do you participate in: walking seatbelt use: always do you feel safe at home: Yes additional social history: [employer] ROS ROS ED ROS Narrative A complete review of systems was performed and is negative except as documented in the history of present illness. Some specific details below. Constitutional: No recent fevers or chills. EYE: No visual complaints or pain. No change in eye color. ENT: No difficulty swallowing. No swelling. No pain. No GERD. CV: No chest pain or palpitations. Respiratory: No dyspnea. No hemoptysis. No difficulty taking breaths. GI: Please see history of present illness. : No frequency dysuria or hematuria. Musculoskeletal: No recent trauma. No pains. Skin: No rash. Nondiaphoretic. Neuro: No weakness or numbness. Endocrine: No polyuria or polydipsia. EXAM Physical Exam Narrative Exam Narrative: CONSTITUTIONAL: Patient is nontoxic in appearance. The patient looks comfortable. HEENT: No notable trauma. Mucous membranes are still moist. No sinus tenderness.No indication of pain with swallowing. No thrush. EYES: No conjunctival injection. No proptosis. CARDIOVASCULAR: Regular rate. Regular rhythm. No notable murmur. No JVD. RESPIRATORY: No respiratory distress. Breathing is unlabored. No wheezes. No rhonchi. No rales. No pain with a deep breath. GASTROINTESTINAL: It is hard to tell if her abdomen is actually distended. It is not taut. She feels that it is benson than normal. Bowel sounds are normal. Her bowel sounds do not sound increased or decreased. Despite the discomfort, I am not finding areas of tenderness. GENITOURINARY: No tenderness over the bladder. No CVA tenderness. MUSCULOSKELETAL: Atraumatic. No peripheral edema. No cord. No tenderness along the deep venous system. No asymmetry. NEUROLOGICAL: Patient is alert and appropriate. No focal deficit noted. SKIN: No noted rashes. No diaphoresis. PSYCHIATRIC: Patient is calm. Mood is appropriate. Const Vital Signs: 05/03/23 15:21 Temperature 97.3 F L Temperature Source Temporal Pulse Rate 80 Respiratory Rate 16 Blood Pressure 124/68 H Blood Pressure Mean 86 Pulse Ox 99 MDM MDM MDM Narrative Medical decision making narrative: We talked about options with the patient. Her concern is that she is not havingbowel movements and feels bloated. We did mutually agreed to do a CT to rule out obstruction as her symptoms have been going on for almost a week now. We have also got blood work IV fluids and medications written for. CBC shows mild elevation of white count which she has had before but is nonspecific. Electrolytes shows minimal elevation of chloride but no sign of hydrate of significance. Glucose is normal. Hepatic function shows no values. Lipase shows normal level at 28. Serum shows negative My independent interpretation the patient's CT of her abdomen shows no sign of obstruction or ileus. No free air final reading no acute trip aminal process there is a small ovarian cyst less than 2 cm in the left side but she is not having focal pain there. I do not this represents torsion without localized pain and significant elevation of size. I rechecked the patient. She is feeling much better. She is not having urinarysymptoms and would prefer not to wait for another urinalysis. She already went to the bathroom but it was not saved and she does not feel she needs to go again. 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 We did discuss reasons to return. Lab Data Attestation: I reviewed the patient's lab results. Labs: Laboratory Results - last 24 hr 05/03/23 16:05 WBC 14.6 H RBC 4.62 Hgb 13.6 Hct 39.9 MCV 86.4 MCH 29.4 MCHC 34.1 RDW Std Deviation 41.6 RDW Coeff of Dimitrios 13.3 Plt Count 382 MPV 9.3 Immature Gran % (Auto) 0.300 Neut % (Auto) 62.7 Lymph % (Auto) 29.0 Fulton % (Auto) 5.5 Eos % (Auto) 1.7 Baso % (Auto) 0.8 Absolute Neuts (auto) 9.2 H Absolute Lymphs (auto) 4.25 Nucleated RBC % 0 Sodium 138 Potassium 3.6 Chloride 109 H Carbon Dioxide 21.0 Anion Gap 8 BUN 13 Creatinine 0.65 Estim Creat Clear Calc 104.32 Est GFR (MDRD) Af Amer 134 Est GFR (MDRD) Non-Af 111 BUN/Creatinine Ratio 20.1 H Glucose 91 Calcium 9.1 Total Bilirubin 0.40 AST 10 L ALT 16 Alkaline Phosphatase 63 Total Protein 7.0 Albumin 3.8 Globulin 3.2 Albumin/Globulin Ratio 1.2 Lipase 28 Serum , Qual NEGATIVE Radiography Diagnostic Testing: Clinical Impression(s) from Imaging Studies Abdomen/Pelvis CT 05/03/23 17:00 IMPRESSION: Fluid density mass in the left hemipelvis which may represent an ovarian cyst. No other acute abnormalities are identified. Electronically Signed: Sam Otero MD at 17:16 EDT , EKG Initial EKG: Comments: I independent interpretation of her EKG done for history of hypokalemia shows normal sinus rhythm with overall rate of 78. No acute ST elevation or depression although there is some baseline variation. NJ interval,QRS duration and QTc are all within normal. Discharge Plan Triage Chief Complaint: Abd Pain ED Provider: Rikki Maddox Dx/Rx/DC Orders Clinical Impression: Exacerbation of Crohn's disease, Abdominal pain Instructions: ED Crohn's Disease Prescriptions: New oxycodone-acetaminophen [oxycodone-acetaminophen] 5-325 mg tablet 1 tab PO Q6H PRN PRN (Reason: Pain) 3 Days Qty: 12 0RF prednisone 20 mg tablet 40 mg PO DAILY 5 Days Qty: 10 0RF No Action doxycycline monohydrate 100 mg capsule 100 mg PO BID Qty: 20 0RF citalopram 20 mg tablet 30 mg PO DAILY Patient Comments: TAKE 1 & 1/2 (ONE AND ONE-HALF) TABLETS BY MOUTH ONCE DAILY diphenoxylate-atropine [Lomotil] 2.5-0.025 mg tablet 1 tab PO 4X/DAY PRN PRN (Reason: diarrhea) 5 Days Qty: 20 0RF promethazine [promethazine] 25 mg tablet 25 mg PO Q6H PRN PRN (Reason: Nausea) Qty: 10 0RF ondansetron 4 mg tablet,disintegrating 4 mg PO Q8H PRN (Reason: nausea and vomiting) 3 Days Qty: 9 0RF Primary Care Provider: Azael Irene Referrals: Azael Irene MD [Primary Care Provider] - As soon as possible Activity Restrictions/Additional Instructions: See Dr. Jacob as scheduled or sooner if able. Disposition Disposition: Home, Self Care What to do if you have Problems For any increased pain, shortness of breath, bleeding, nausea or vomiting, chestpain, or any unexpected problems, contact your Primary Care Provider. Call [facility] ([phone]) or report to the closest Emergency Room. Call 911 if necessary. 05/03/231809 <Electronically signed by Rikki Maddox MD> Cosigner Signature (if applicable): CC: Dr. Azael Irene MD ~ Signed [facility] Work Phone: [phone]) 492-946207-13-2023 NoteHNO ID: [id number] Author: Eduardo Zuluaga MD Service: ? Author Type: Physician [...] (FLONASE) 50 mcg/actuation nasal spray Use 1 Sanborn in the nose. Loperamide HCl (IMODIUM) 2 [...] ALLERGIES Allergen Reactions Morphine Other: See Comments "Heart feels funny", has safely taken percocet, dilaudid Other Ellsworth-3s Swelling NECTARINES Reglan [Metoclopram* Other: See Comments [...] EXAMINATION: BP 114/79 Pulse 91 Ht 5' 4" (1.63m) Wt 161 lb (73.0kg) LMP 06/02/2022 [...] - glucose breath test neg for SIBO. Eduardo Zuluaga, [facility]07-13-2023 History of Present illness Narrative* Eduardo Zuluaga MD - 03/14/2023 11:18 AM EDT HPI: Armin Vivas is a 37 year [...] (FLONASE) 50 mcg/actuation nasal spray Use 1 Sanborn in the nose. Loperamide HCl (IMODIUM) 2 [...] ALLERGIES Allergen Reactions Morphine Other: See Comments "Heart feels funny", has safely taken percocet, dilaudid Other Ellsworth-3s Swelling NECTARINES Reglan [Metoclopram* Other: See Comments [...] EXAMINATION: BP 114/79 Pulse 91 Ht 5' 4" (1.63m) Wt 161 lb (73.0kg) LMP 06/02/2022 [...] - glucose breath test neg for SIBO. Eduardo Zuluaga MD documented [facility]07-12-2023 NoteHNO ID: [id number] Author: Mitzi Howard RN Service: ? Author Type: Registered Nurse Type: Progress Notes Filed: 03/13/2023 3:44 PM Note Text: Name: Armin Vivas [facility]#: [id number] Date: 03/13/2023 GLUCOSE - BREATH HYDROGEN AND [...] breath hydrogen/methane test was completed. .[facility] History of Present illness Narrative* Mitzi Howard RN - 03/13/2023 3:42 PM EDT Name: Armin Vivas [facility]#: [id number] Date: 03/13/2023 GLUCOSE - BREATH HYDROGEN & [...] completed. .Mitzi Howard RN documented in [facility]Park[facility]06-05-[address] Maddox [facility] February 04, 2023 8:09pm Note Date/Time February 04, 2023 6:21p m [facility] Medical Records Department [address] [place] [address] Emergency Department Summary 02/04/23 MR#: [id number] Acct: [id number] Name: ARMIN VIVAS Rep #:[id number] : 1985 37 From: Rikki Maddox MD PCP: Dr. Azael Irene MD Status:REG ER Location: ED HPI History of Present Illness Chief Complaint: Nausea/Vomiting/Diarrhea Informant: patient Narrative Narrative: Patient presents with nausea vomiting diarrhea and abdominal cramps. Patient states she has a history of Crohn's disease. She has been on several medicines for this but nothing really work without causing significant side effects. Therefore she is currently on nothing for Crohn's including no Biologics. Her only medicine currently is citalopram which she has been on a long time. She denies any abdominal surgery including none for Crohn's. She states just today she started with nausea vomiting and watery diarrhea. No blood is seen. No fevers or chills. She does have abdominal cramping that is diffuse in different areas but its more in the right lower quadrant. But she states that is the typical spot where it hurts more. She has had endoscopies both upper and lower and has had these about every year. She is currently seeing Dr. Jacob in the [facility] area. She is pending some further testing at [facility]. She also was just recently in [place] and is concerned she may have caught some virus down there or eaten something wrong as the symptoms came on relatively quickly. It started with nausea vomiting diarrhea and then progressed to some cramping. Nothing really makes it better but she has no medsat home to help with nausea or vomiting. [facility] Medical History Anxiety Colitis Crohns disease Depression Stephanie Tobar infection Gestational diabetes Left ovarian cyst Sleep apnea Home Medications citalopram 20 mg tablet 30 mg PO DAILY 07/12/21 [History Last Taken Unknown] ondansetron 4 mg disintegrating tablet 8 mg PO Q8H PRN PRN Nausea #20 tabs 09/02/22 [Rx Last Taken Unknown] promethazine 25 mg rectal suppository 25 mg NJ Q6H PRN nausea and vomiting #12 ea 11/12/22 [Rx Last Taken Unknown] diphenoxylate-atropine 2.5 mg-0.025 mg tablet (Lomotil) 1 tab PO 4X/DAY PRN PRN diarrhea 5 days #20 tabs 11/22/22 [Rx Last Taken Unknown] oxycodone-acetaminophen 5 mg-325 mg tablet (Percocet) 1 tab PO Q6H PRN pain 3 days #12 tabs 11/22/22 [Rx Last Taken Unknown] hydrocodone-acetaminophen 5-325mg 5mg-325mg 1 tab PO Q6H PRN PRN Pain 3 days #10TABLETS 02/04/23 [Rx Last Taken Unknown] ondansetron 4 mg disintegrating tablet 4 mg PO Q8H PRN PRN Nausea #10 tabs 02/04/23 [Rx Last Taken Unknown] promethazine 25 mg tablet 25 mg PO Q6H PRN PRN Nausea #10 TABLETS 02/04/23 [Rx Last Taken Unknown] Allergy/AdvReac Type Severity Reaction Status Date / Time nectarine Allergy Angioedema Verified 02/04/23 17:48 metoclopramide [From Reglan] AdvReac Other Verified 02/04/23 17:48 Family History Mother Heart disease Pacemaker Grandfather Diabetes Grandmother Diabetes Surgical History History of colonoscopy (~2017) History of colonoscopy (~2017) History of esophagogastroduodenoscopy (EGD) (~2018) History of wisdom tooth extraction Social History household members: spouse Smoking Status: Light Smoker (<10/day) alcohol intake: never substance use type: does not use caffeine: Yes what type of physical activity do you participate in: walking seatbelt use: always do you feel safe at home: Yes additional social history: [employer] ROS ROS ED ROS Narrative A complete review of systems was performed and is negative except as documented in the history of present illness. Some specific details below. Constitutional: No recent fevers or chills. Slight malaise. EYE: No visual complaints or pain. ENT: No difficulty swallowing. No swelling. No pain. CV: No chest pain or palpitations. Respiratory: No dyspnea. No hemoptysis. No difficulty taking breaths. GI: Please see history of present illness. : No frequency dysuria or hematuria. Musculoskeletal: No recent trauma. No pains. Skin: No rash. Nondiaphoretic. Neuro: No weakness or numbness. Endocrine: No polyuria or polydipsia. EXAM Physical Exam Narrative Exam Narrative: CONSTITUTIONAL: Patient is nontoxic in appearance. The patient looks comfortable. HEENT: No notable trauma. Mucous membranes do still look moist. No sinus tenderness. No indication of pain with swallowing. EYES: No conjunctival injection. No proptosis. CARDIOVASCULAR: Regular rate. Regular rhythm. No notable murmur. No JVD. RESPIRATORY: No respiratory distress. Breathing is unlabored. No wheezes. No rhonchi. No rales. No pain with a deep breath. GASTROINTESTINAL: Not distended. Bowel sounds are normal. Mild but nonfocal tenderness. No guarding. No rebound. No palpable mass. No bruit. Although she states she has more pain in the right lower quadrant there is not notable tenderness there. I do not feel fullness or mass. GENITOURINARY: No tenderness over the bladder. No CVA tenderness. MUSCULOSKELETAL: Atraumatic. No peripheral edema. No cord. No tenderness along the deep venous system. No asymmetry. NEUROLOGICAL: Patient is alert and appropriate. No focal deficit noted. SKIN: No noted rashes. No diaphoresis. PSYCHIATRIC: Patient is calm. Mood is appropriate. Const Vital Signs: 02/04/23 17:48 Temperature 97 F L Temperature Source Temporal Pulse Rate 87 Respiratory Rate 14 Blood Pressure 116/65 Blood Pressure Mean 82 Pulse Ox 99 Oxygen Delivery Method Room Air MDM MDM MDM Narrative Medical decision making narrative: Patient CBC shows mild elevation white count at 11.9. She has had this up in that range several times before. Patient's electrolytes show no marked abnormalities. This time her potassium isnormal. Her liver function test are overall normal. Serum is negative. Her urinalysis is normal. Patient's recheck. She is feeling better. She still has some pain and some nausea but overall better. She states she has had this before. She has responded well to steroids. I will give her IV steroids here and steroids to go. I will write for some meds for pain and nausea. We discussed reasons to return. We also discussed the consideration of a CAT scan but she has had 6 CATscans in the last few years. She would like to avoid further scanning if not required and since she is improving not notably tender I do not think we need toscan at this time. Certainly if she worsens develops more pain fevers or other symptoms she should return and we may need to look further. Lab Data Labs: Laboratory Results - last 24 hr 02/04/23 02/04/23 02/04/23 18:00 18:00 18:00 WBC 11.9 H RBC 4.35 Hgb 13.0 Hct 38.7 MCV 89.0 MCH 29.9 MCHC 33.6 RDW Std Deviation 46.3 H RDW Coeff of Dimitrios 14.2 Plt Count 405 MPV 9.9 Immature Gran % (Auto) 0.600 Neut % (Auto) 55.7 Lymph % (Auto) 33.6 Fulton % (Auto) 7.0 Eos % (Auto) 2.3 Baso % (Auto) 0.8 Absolute Neuts (auto) 6.6 Absolute Lymphs (auto) 4.00 Nucleated RBC % 0 Sodium 141 Potassium 3.8 Chloride 111 H Carbon Dioxide 25.0 Anion Gap 5 BUN 12 Creatinine 0.59 Estim Creat Clear Calc 114.92 Est GFR (MDRD) Af Amer 150 Est GFR (MDRD) Non-Af 124 BUN/Creatinine Ratio 20.4 H Glucose 89 Calcium 9.0 Total Bilirubin 0.30 AST 12 L ALT 21 Alkaline Phosphatase 56 Total Protein 7.0 Albumin 3.8 Globulin 3.2 Albumin/Globulin Ratio 1.2 Serum , Qual NEGATIVE Urine Color Urine Clarity Urine pH Ur Specific [place] Urine Protein Urine Glucose (UA) Urine Ketones Urine Occult Blood Urine Nitrite Urine Bilirubin Urine Urobilinogen Ur Leukocyte Esterase Urine RBC Urine WBC Ur Squamous Epith Cells Urine Bacteria Urine Mucus 02/04/23 18:00 WBC RBC Hgb Hct MCV MCH MCHC RDW Std Deviation RDW Coeff of Dimitrios Plt Count MPV Immature Gran % (Auto) Neut % (Auto) Lymph % (Auto) Fulton % (Auto) Eos % (Auto) Baso % (Auto) Absolute Neuts (auto) Absolute Lymphs (auto) Nucleated RBC % Sodium Potassium Chloride Carbon Dioxide Anion Gap BUN Creatinine Estim Creat Clear Calc Est GFR (MDRD) Af Amer Est GFR (MDRD) Non-Af BUN/Creatinine Ratio Glucose Calcium Total Bilirubin AST ALT Alkaline Phosphatase Total Protein Albumin Globulin Albumin/Globulin Ratio Serum , Qual Urine Color Yellow Urine Clarity Clear Urine pH 7.0 Ur Specific [place]ipt[place] 1.010 Urine Protein Negative Urine Glucose (UA) Normal Urine Ketones Negative Urine Occult Blood 25 H Urine Nitrite Negative Urine Bilirubin Negative Urine Urobilinogen Normal Ur Leukocyte Esterase Negative Urine RBC 0 SEEN Urine WBC 0 SEEN Ur Squamous Epith Cells 0 SEEN Urine Bacteria 0 SEEN Urine Mucus 0 SEEN Discharge Plan Triage Chief Complaint: Nausea/Vomiting/Diarrhea ED Provider: Rikki Maddox Dx/Rx/DC Orders Clinical Impression: Exacerbation of Crohn's disease, Nausea vomiting and diarrhea Instructions: ED Crohn's Disease Prescriptions: New hydrocodone-acetaminophen [hydrocodone-acetaminophen] 5-325 mg tablet 1 tab PO Q6H PRN PRN (Reason: Pain) 3 Days Qty: 10 0RF ondansetron [ondansetron] 4 mg tablet,disintegrating 4 mg PO Q8H PRN PRN (Reason: Nausea) Qty: 10 0RF promethazine [promethazine] 25 mg tablet 25 mg PO Q6H PRN PRN (Reason: Nausea) Qty: 10 0RF No Action citalopram 20 mg tablet 30 mg PO DAILY Label Comments: TAKE 1 & 1/2 (ONE AND ONE-HALF) TABLETS BY MOUTH ONCE DAILY ondansetron 4 mg tablet,disintegrating 8 mg PO Q8H PRN PRN (Reason: Nausea) Qty: 20 0RF promethazine 25 mg suppository 25 mg NJ Q6H PRN (Reason: nausea and vomiting) Qty: 12 0RF diphenoxylate-atropine [Lomotil] 2.5-0.025 mg tablet 1 tab PO 4X/DAY PRN PRN (Reason: diarrhea) 5 Days Qty: 20 0RF oxycodone-acetaminophen [Percocet] 5-325 mg tablet 1 tab PO Q6H PRN (Reason: pain) 3 Days Qty: 12 0RF Primary Care Provider: Azael Irene Referrals: Azael Irene MD [Primary Care Provider] - Disposition Disposition: Home, Self Care What to do if you have Problems For any increased pain, shortness of breath, bleeding, nausea or vomiting, chestpain, or any unexpected problems, contact your Primary Care Provider. Call [facility] ([phone]) or report to the closest Emergency Room. Call 911 if necessary. 02/04/232008 <Electronically signed by Rikki Maddox MD> Cosigner Signature (if applicable): CC: Dr. Azael Irene MD ~ Signed [facility] Work Phone: 1(861) 663-656604-20-2023 History of Present illness Narrative* Eduardo Zuluaga MD - 12/20/2022 9:35 AM EDT HPI: Armin Vivas is a 37 year old female who presents for No chief complaint on file. Pt used to be apt of DR. Linder'merissa. Last encounter was colonoscopy [...] been neg for IBD, GES nl, EGD suggestiveof gastroparesis w retained food, but trial of [...] (FLONASE) 50 mcg/actuation nasal spray Use 1 [place] in the nose. Loperamide HCl (IMODIUM) 2 [...] of Onset Coronary Artery Disease Mother Hx PA age 45 Diabetes Maternal Grandmother Social History Tobacco Use Smoking status: Every Day Packs/day: 0.50 Types: Cigarettes Smokeless tobacco: Never Vaping Use Vaping Use: Never used Substance Use Topics Alcohol use: No Drug use: No ALLERGIES Allergen Reactions Morphine Other: See Comments "Heart feels funny", has safely taken percocet, dilaudid Other Ellsworth-3s Swelling NECTARINES Reglan [Metoclopram* Other: See Comments [...] EXAMINATION: BP 118/79 Pulse 100 Ht 5' 4" (1.63m) Wt 148 lb (67.1kg) LMP 06/02/2022 [...] 787.01, ICD10: R11.2 - BREATH TEST GLUCOSE Eduardo Zuluaga MD documented [facility] Discharge summary Author Gaudencio Nair [facility] November 22, 2022 5:37am Note Date/Time November 22, 2022 3:5 8am [facility] Medical Records Department [address] [place] [address] Emergency Department Summary 11/22/22 MR#: [id number] Acct: [id number] Name: ARMIN VIVAS Rep #:[id number] : 1985 36 From: Gaudencio Nair DO PCP: Dr. Azael Irene MD Status:REG ER Location: ED HPI History of Present Illness Chief Complaint: Nausea/Vomiting Narrative Narrative: Patient is a 36-year-old female with past medical history of Crohn's disease whocurrently is not on any type of maintenance therapy for it. She reports that her son was recently sick with nausea vomiting diarrhea. She reports beginning Saturday afternoon she developed generalized abdominal pain with multiple boutsof vomiting and diarrhea. She states that as time passed she continued to have symptoms despite taking [id number] medications and she is concerned about dehydration as well as electrolyte disturbance and with this comes in for evaluation. She states has been no recent travel outside the country or livestock exposure or antibiotic use. [facility] Medical History Anxiety Colitis Crohns disease Depression Stephanie Tobar infection Gestational diabetes Left ovarian cyst Sleep apnea Home Medications citalopram 20 mg tablet 30 mg PO DAILY 07/12/21 [History Last Taken Unknown] ondansetron 4 mg disintegrating tablet 8 mg PO Q8H PRN PRN Nausea #20 tabs 09/02/22 [Rx Last Taken Unknown] promethazine 25 mg rectal suppository 25 mg NJ Q6H PRN nausea and vomiting #12 ea 11/12/22 [Rx Last Taken Unknown] diphenoxylate-atropine 2.5 mg-0.025 mg tablet (Lomotil) 1 tab PO 4X/DAY PRN PRN diarrhea 5 days #20 tabs 11/22/22 [Rx Last Taken Unknown] oxycodone-acetaminophen 5 mg-325 mg tablet (Percocet) 1 tab PO Q6H PRN pain 3 days #12 tabs 11/22/22 [Rx Last Taken Unknown] Allergy/AdvReac Type Severity Reaction Status Date / Time nectarine Allergy Angioedema Verified 11/12/22 18:03 metoclopramide [From Reglan] AdvReac Other Verified 11/12/22 18:03 Family History Mother Heart disease Pacemaker Grandfather Diabetes Grandmother Diabetes Surgical History History of colonoscopy (~2017) History of colonoscopy (~2017) History of esophagogastroduodenoscopy (EGD) (~2018) History of wisdom tooth extraction Social History household members: spouse Smoking Status: Light Smoker (<10/day) alcohol intake: never substance use type: does not use caffeine: Yes what type of physical activity do you participate in: walking seatbelt use: always do you feel safe at home: Yes additional social history: [employer] ROS ROS ED Constitutional Constitutional ED: Denies chills or fever(s) ENT ENT ED: Denies sore throat Cardiovascular Cardiovascular: Denies chest pain Respiratory/Chest Respiratory/Chest: Denies cough or dyspnea Gastrointestinal Gastrointestinal: Reports abdominal pain, diarrhea, nausea and vomiting Genitourinary Genitourinary ED: Denies dysuria Musculoskeletal Musculoskeletal: Reports myalgias Integumentary Denies rash Neurologic Neurologic: Denies headache(s) Hematologic/Lymphatic Hematologic/Lymphatic: Denies easy bleeding or easy bruising EXAM Physical Exam Const Vital Signs: 11/22/22 02:17 11/22/22 05:01 Temperature 97.0 F L Temperature Source Temporal Pulse Rate 106 H Respiratory Rate 18 16 Blood Pressure 128/74 H Blood Pressure Mean 92 Pulse Ox 99 Oxygen Delivery Method Room Air Positive well nourished and well developed General Appearance ED: well developed HEENT Reports moist mucous membranes HEENT Narrative: No signs of infection in the posterior pharynx Eyes PERRL and EOMs intact bilaterally General Eye ED: Negative for scleral icterus Neck supple Neck Narrative: No nuchal rigidity or meningeal signs Resp normal respiratory effort and clear to auscultation bilaterally Cardio regular rate and regular rhythm Rate: other Other Details: Radial pulses are plus 2 out of 4 bilaterally are equal and symmetric GI non-distended GI Narrative: Abdomen is soft and nondistended with hyperactive bowel sounds. There is mild diffuse pain with palpation without voluntary guarding or rigidity Auscultation: hyperactive bowel sounds Palpation: soft Back/Spine no CVA tenderness Extremity normal to inspection Neuro oriented x3 and CN's II-XII intact bilaterally Sensorium / Orientation: alert Psych Psych Narrative: Patient has a tearful/anxious affect Skin no rashes or lesions noted and skin turgor normal General Skin Exam: Negative for jaundice MDM MDM MDM Narrative Medical decision making narrative: Patient presented to the ER afebrile with a soft nonsurgical abdomen. Her history of a for member being sick with similar symptoms than her is coming on is consistent with a viral gastroenteritis. However as this could be acute pancreatitis versus biliary colic or a Crohn's exacerbation I did elect to perform a basic work-up. Labs reveal white count of 16.8 and kidney function isnormal but her potassium is now dropped to 3. She was given 2 L of IV fluid Zofran and Compazine and had no further bouts of vomiting. She also was given Lomotil and this helped reduce her excessive loose stool/diarrhea. CT scan revealed thickened inflamed intestines which are nonspecific in nature without acute obstruction or perforation. Therefore at this time based on her history and exam I feel this is most likely a viral gastroenteritis that is causing mildexacerbation of her Crohn's disease. She does have mild hypokalemia but this has been replaced in the ER and I do not feel there is need for admission based on the value of a 3. As she is not having perforation or abscess or obstructionand symptoms have improved with treatment there is no need for admission and sheis otherwise safe for discharge History & Record Review Discussion w/independent historian: Patient Lab Data Attestation: I reviewed the patient's lab results. Labs: Laboratory Results - last 24 hr 11/22/22 11/22/22 11/22/22 02:40 02:40 02:40 WBC 16.8 H RBC 4.88 Hgb 14.4 Hct 42.9 MCV 87.9 MCH 29.5 MCHC 33.6 RDW Std Deviation 40.6 RDW Coeff of Dimitrios 12.7 Plt Count 372 MPV 9.4 Immature Gran % (Auto) 0.400 Neut % (Auto) 80.7 H Lymph % (Auto) 12.7 L Fulton % (Auto) 4.8 Eos % (Auto) 1.0 Baso % (Auto) 0.4 Absolute Neuts (auto) 13.6 H Absolute Lymphs (auto) 2.14 Nucleated RBC % 0 Sodium 141 Potassium 3.0 L Chloride 109 H Carbon Dioxide 23.0 Anion Gap 9 BUN 22 H Creatinine 0.62 Estim Creat Clear Calc 110.40 Est GFR (MDRD) Af Amer 142 Est GFR (MDRD) Non-Af 117 BUN/Creatinine Ratio 35.7 H Glucose 120 H Calcium 8.9 Magnesium 2.2 Total Bilirubin 0.40 Direct Bilirubin 0.08 AST 11 L ALT 17 Alkaline Phosphatase 53 Total Protein 7.3 Albumin 4.2 Globulin 3.1 Lipase 188 Serum , Qual NEGATIVE Radiography Diagnostic Testing: Clinical Impression(s) from Imaging Studies Abdomen/Pelvis CT 11/22/22 03:49 IMPRESSION: Evidence of diarrheal illness with fluid throughout the bowel and no formed stool. No other acute or concerning findings. Electronically Signed: Steven Hamilton MD at 5:05 EDT Reading Location ID and State: [address] [place] [address] Tel , Service support , Discharge Plan Triage Chief Complaint: Nausea/Vomiting ED Provider: Gaudencio Nair Dx/Rx/DC Orders Clinical Impression: Nausea vomiting and diarrhea, History of Crohn's disease, Acute hypokalemia Instructions: Hypokalemia Dc, ED Gastroenteritis, Viral (Adult) Prescriptions: New diphenoxylate-atropine [Lomotil] 2.5-0.025 mg tablet 1 tab PO 4X/DAY PRN PRN (Reason: diarrhea) 5 Days Qty: 20 0RF oxycodone-acetaminophen [Percocet] 5-325 mg tablet 1 tab PO Q6H PRN (Reason: pain) 3 Days Qty: 12 0RF No Action citalopram 20 mg tablet 30 mg PO DAILY Label Comments: TAKE 1 & 1/2 (ONE AND ONE-HALF) TABLETS BY MOUTH ONCE DAILY ondansetron 4 mg tablet,disintegrating 8 mg PO Q8H PRN PRN (Reason: Nausea) Qty: 20 0RF promethazine 25 mg suppository 25 mg NJ Q6H PRN (Reason: nausea and vomiting) Qty: 12 0RF Primary Care Provider: Azael Irene Referrals: Azael Irene MD [Primary Care Provider] - Activity Restrictions/Additional Instructions: Your work-up indicates you have a viral stomach infection which will last anywhere from 1 day to 7 with the average being 3 days. Keep yourself well-hydrated and use your home Phenergan and Zofran to control nausea and vomiting. Please try and eat a potassium rich diet for the next few days as your value waslow today on laboratory studies and return to the ER should you have any furtherconcerns Disposition Disposition: Home, Self Care What to do if you have Problems For any increased pain, shortness of breath, bleeding, nausea or vomiting, chestpain, or any unexpected problems, contact your Primary Care Provider. Call [facility] ([phone]) or report to the closest Emergency Room. Call 911 if necessary. 11/22/22536 <Electronically signed by Gaudencio Nair DO> Cosigner Signature (if applicable): CC: Dr. Azael Irene MD ~ Signed [facility] Work Phone: 1(222) 224-268203-23-2023 Hospital Discharge instructions Additional Instructions Your work-up indicates you have a viral stomach infection which will last anywhere from 1 day to 7 with the average being 3 days. Keep yourself well-hydrated and use your home Phenergan and Zofran to control nausea and vomiting. Please try and eat a potassium rich diet for the next few days as your value was low today on laboratory studies and return to the ER should you have any further concernsWPremier Health [facility] Work Phone: 1(379) 279-172401-05-2023 Evaluation + Plan note* Assessment & Plan Note - Azael Irene MD - 09/06/2022 10:30 AM ESTAssociated Problem(s): Other fatigue CBC and thyroid studies [id number] Evaluation + Plan note* Assessment & Plan Note - Azael Irene MD - 09/06/2022 10:30 AM ESTAssociated Problem(s): Crohn's disease of small intestine without complication (HCC) Relatively stable has had no significant problems recently [facility] [id number] Miscellaneous Notes* Assessment & Plan Note - Azael Irene MD - 09/06/2022 10:30 AM ESTAssociated Problem(s): Other fatigue CBC and thyroid studies * Assessment & Plan Note - Azael Irene MD - 09/06/2022 10:30 AM EST Associated Problem(s): Crohn's disease of small intestine without complication (HCC) Relatively stable has had no significant problems recently * Assessment & Plan Note - Azael Irene MD - 09/06/2022 10:29 AM EST Associated Problem(s): Left upper quadrant abdominal pain We will get repeat lab work to make sure her WBCs are not going up, she is to get Senokot-S and take 2 of those at bedtime for the next couple of days till she has a cleansing bowel movement, she is to contact her fast food fry cook for an appointment ZOË documented in this [facility]01-05-2023 Evaluation + Plan note* Assessment & Plan Note - Azael Irene MD - 09/06/2022 10:29 AM EST Associated Problem(s): Left upper quadrant abdominal pain We will get repeat lab work to make sure her WBCs are not going up, she is to get Senokot-S and take 2 of those at bedtime for the next couple of days till she has a cleansing bowel movement, she is to contact her fast food fry cook for an appointment ZOË [facility] [id number] History of Present illness Narrative* Angelina Culp MA - 09/06/2022 9:15 AM EST Patient verified by last name and date of . Patient wants a emergency medical tech in the room during during the visit. no Explosives Detonator na * Azael Irene MD - 09/06/2022 9:15 AM EST Images from the original note were not included. 09/06/2022 Armin Vivas (: 1985) is a 36 y.o. female , Established patient, here for evaluation of the following chief complaint(s): Fatigue (Not feel like myself for last 4 days) and Constipation (No bm x 3 days setting up with newGI ) ASSESSMENT/PLAN: 1. Left upper quadrant abdominal pain Assessment & Plan: We will get repeat lab work to make sure her WBCs are not going up, she is to get Senokot-S and take 2 of those at bedtime for the next couple of days till she has a cleansing bowel movement, she is to contact her fast food fry cook for an appointment ZOË 2. Crohn's disease of small intestine without complication (HCC) Assessment & Plan: Relatively stable has had no significant problems recently 3. Other fatigue Assessment & Plan: CBC and thyroid studies Orders: - CBC auto differential - TSH - T4, free - T3, free Follow up if symptoms worsen or fail to improve. SUBJECTIVE/OBJECTIVE: HPI Baltazar comes in today complaining that she just does not feel well she says she is very tired no energy she goes to bed about 6:00 sleeps all night and wakes up feeling tired. Says she has not had a bowel movement for couple of days, the last one was right after New Year's, she is having some left upper quadrant abdominal pain and today she when she got up she took a couple of Bentyl's to help with the pain. She was seen in the emergency room at [facility] on September 02 for similar complaints and her lab work was unremarkable other than a WBC count that was elevated to 12.1, she did not have any imaging done and at that time the issues were abdominal pain nausea vomiting and diarrhea. Review of Systems Constitutional: Positive for fatigue. Negative for chills and fever. Respiratory: Negative for shortness of breath. Cardiovascular: Negative for chest pain and palpitations. Gastrointestinal: Positive for abdominal pain and constipation. Negative for anal bleeding, blood in stool, diarrhea and nausea. Genitourinary: Negative for dysuria, frequency, hematuria and urgency. Vitals: 09/06/22 0921 BP: (!) 109/48 Pulse: 72 Weight: 152 lb 12.8 oz (69.3 kg) Height: 5' 4" (1.626 m) Physical Exam Vitals and nursing note reviewed. Constitutional: General: She is not in acute distress. Appearance: Normal appearance. She is normal weight. Cardiovascular: Rate and Rhythm: Normal rate and regular rhythm. Heart sounds: Normal heart sounds. No murmur heard. Pulmonary: Effort: Pulmonary effort is normal. Breath sounds: Normal breath sounds. Abdominal: General: Abdomen is flat. Bowel sounds are normal. Palpations: Abdomen is soft. Tenderness: There is generalized abdominal tenderness. Musculoskeletal: Cervical back: No tenderness. Lymphadenopathy: Cervical: No cervical adenopathy. Neurological: Mental Status: She is alert. An electronic signature was used to authenticate this note. Azael Irene MD 09/06/2022 10:31 AM documented in this [facility]05-24-2022 Miscellaneous Notes* Telephone Encounter - Jewell Linder MD - 01/23/2022 11:07 AM EDT The following approved medication requests have been transmitted electronically. Signed Prescriptions Disp Refills promethazine (PHENERGAN) 12.5 mg tablet 100 tablet 3 Sig: TAKE 1 TABLET BY MOUTH EVERY 6 HOURS NEEDED BRIANDA: No Authorizing Provider: JEWELL LINDER MD documented in this encounterPark[facility]05-17-2022 Miscellaneous Notes* Telephone Encounter - Sridevi Lozano MA - 01/16/2022 4:28 PM EDT Patient notified and verbalized understanding. Sridevi Lozano MA January 16, 2022 4:28 PM * Telephone Encounter - Jewell Linder MD - 01/16/2022 4:12 PM EDT Have patient continue taking Zofran prn She needs f/u in 3 mos with me at new office or with Dr. Zuluaga/Black Thanks * Telephone Encounter - Sridevi Lozano MA - 01/16/2022 2:14 PM EDT Patient notified and verbalized understanding. Patient states nausea is the same, not any worse. Sridevi Lozano MA January 16, 2022 2:14 PM * Telephone Encounter - Jewell Linder MD - 01/16/2022 1:04 PM EDT Tell pt that her stomach emptying is normal How is her nausea? Thanks documented in this encounterParkwood Hospital05-17-2022 History of Present illness Narrative* Eula Cruz, RT(R) - 01/16/2022 7:00 AM EDT RADIOLOGY SERVICE PROGRESS NOTE SERVICE DATE: 01/16/2022 [...] creatinine assay has traceable calibration to isotope dilution- mass spectrometry. Refer to KDIGO guidelines for clinical interpretation. In patients with unstable renal function, e.g. those with acute kidney injury, the eGFRmay not accurately reflect actual GFR. eGFR- Date [...] 0720 PATIENT DISCHARGED TO: Ambulatory patient, left [place] department area. A Diagnostic radioactive procedure has taken place, with no further precautions necessary other than routine body substance precautions. More information regarding radiation safety can be found usingthis link: [email or web address] SIGNATURE: LU Leung) PATIENT NAME: Armin Vivas DATE: January 16, 2022 TIME: 7:36 AM PAGER/CONTACT #: documented in this encounter[address]11-2022 Miscellaneous Notes* Telephone Encounter - Sridevi Lozano MA - 01/10/2022 1:24 PM EDT Patient notified and verbalized understanding. Sridevi Lozano MA January 10, 2022 1:24 PM * Telephone Encounter - Jewell Linder MD - 01/10/2022 12:19 PM EDT Tell pt that her colon bx's are normal She should get GES done as scheduled next week Thanks documented in this encounterParkwood Hospital05-09-2022 Nurse Note* Subha Eubanks RN - 01/08/2022 10:[address] Linder saw the patient. He is ok with her to be discharged. She was told to go to the er if the pain gets worse. * Subha Eubanks RN - 01/08/2022 10:26 AM EDT Patient is relaxed and texting. She is drinking water. States the pain is improving. * Subha Eubanks RN - 01/08/2022 10:03 AM EDT The patient said she passed a little more gas and she feels a little better. She took her pain pilland is on her cell phone. * Subha Eubanks RN - 01/08/2022 9:[address] Linder saw the patient. He ok'd pain medications. He assessed her abdomen which was soft and non distended. He will return to reassess her * Subha Eubanks RN - 01/08/2022 9:43 AM EDT The patient returned from ambulating to the restroom. She said she passed a small amount of air. She said her pain is still a 05/12. * Subha Eubanks RN - 01/08/2022 9:35 AM EDT {When I am talking to the patient she is not complaining of pain. She does have her arms crossed across her abdomen. * Subha Eubanks RN - 01/08/2022 9:08 AM EDT Nursing Progress Note Patient Name: Armin Vivas Patient Location: Room/bed info not found Daily Note: Patients abdomen is soft and [...] This note was completed by: Subha Eubanks * Subha Eubanks RN - 01/08/2022 8:[address] Linder saw the patient at the bedside. She said she is having abdominal pain and she was encouraged to keep her knees to the chest to pass the air out. She did pass a small amount at this point.Her was updated. documented in this encounter[facility] Miscellaneous Notes* Operative Report - Jewell Linder MD - 01/08/2022 8:07 AM EDT OPERATIVE/PROCEDURE REPORT LOG ID: [id number] Surgery/Procedure Date: 01/08/2022 Incision/Procedure Start Time: 8:15 AM Incision Close/Procedure End Time: 8:29 AM Surgeon(s)/Proceduralist(s) and Racing Mechanic(s): Jewell Linder MD - Proceduralist No Additional Staff [...] or neoplastic lesion, were explained to the p atient/guardian/responsible accompanying adult who is agreeable. Procedure Details: [...] mos I/primary surgeon/proceduralist performed the entire procedure. Jewell Linder MD SIGNATURE: Jewell Linder MD PATIENT NAME: Armin Vivas DATE: January 08, 2022 TIME: 8:32 AM PAGER/CONTACT #: [phone] documented in this encounterPark[facility]05-[facility]22 History and physical note * Jewell Linder MD - 01/08/2022 8:00 AM EDT UPDATED HISTORY AND PHYSICAL EXAMINATION SERVICE DATE: 01/08/2022 SERVICE TIME: 8:00 AM PHYSICAL EXAM MUST BE COMPLETED ON ADMISSION The History and Physical (completed in the past 30 days) has been reviewed and the patient has beenexamined. The contents accurately reflect the patient's condition with the following additions or revisions since the H&P was completed. Examination indicates no changes. This H&P can be found in the Electronic Medical Record dated today. SIGNATURE: Jewell Linder MD PATIENT NAME: Armin Vivas DATE: January 08, 2022 TIME: 8:00 AM * Ethel Leonors, COIL REPAIR TECHNICIAN.DAM TENDER - 01/08/2022 8:00 AM EDT HISTORY AND PHYSICAL EXAMINATION SERVICE DATE: 01/08/2022 SERVICE TIME: 7:46 AM PRIMARY CARE PHYSICIAN: Azael Irene MD REASON FOR VISIT: Armin Vivas is [...] 36 [facility]. Patient complains [...] has history of GERD. Patient agrees to proceedwith procedure. PAST MEDICAL HISTORY Diagnosis Date Abdominal pain Anxiety C. difficile diarrhea Colitis Dx not confirmed 2012, 1 episode Crohn's colitis (HCC) Depression Diarrhea Dysphagia GERD (gastroesophageal reflux disease) Nausea & vomiting Ulcerative colitis (HCC) PAST SURGICAL HISTORY Procedure Laterality Date COLONOSCOPY EGD FAMILY HISTORY Problem Relation Age of Onset Coronary Artery Disease Mother Hx PA age 45 Diabetes Maternal Grandmother SOCIAL HISTORY: Social History Tobacco Use Smoking status: Current Every Day Smoker Packs/day: 0.50 Smokeless tobacco: Never Used Vaping Use Vaping Use: Never used Substance Use Topics Alcohol use: No Drug use: No Prior to Admission medications as of 12/26/21 9549 Medication Sig Last Dose Taking dicyclomine (BENTYL) [...] (FLONASE) 50 mcg/actuation nasal spray Use 1 Sanborn in the nose. Loperamide HCl (IMODIUM) 2 mg tab Take 1 tablet by mouth four times daily as needed. L.ACIDOPH/B.LONG/L.PLANT/B.LAC (PROBIOTIC ACIDOPHILUS BEADS ORAL) Take by mouth. Cetirizine (ZYRTEC) 10 mg cap Take 10 mg by mouth once daily. No medication comments found. ALLERGIES Allergen Reactions Morphine Other: See Comments "Heart feels funny", has safely taken percocet, dilaudid Other Ellsworth-3s Swelling NECTARINES Reglan [Metoclopram* Other: See Comments Blurry vision REVIEW OF SYSTEMS: PAIN ASSESSMENT: Pain Pain Level: 8 Pain Location: Abdomen Pain Assessment (RN/HEAT TREAT INSPECTOR): Assessment Tool: Verbal (Numeric Rating or Visual [...] 96.8 (Temporal Artery) Resp 18 Ht 5' 4" (1.63m) Wt 150 lb (68.0kg) SpO2 99% [...] SIGNATURE: Ethel Nieto APRN.CNP PATIENT NAME: Armin Viavs DATE: January 08, 2022 TIME: 7:46 AM PAGER/CONTACT #: documented in this encounterParkwood Hospital04-26-2022 Miscellaneous Notes* Telephone Encounter - La Martin - 12/26/2021 3:31 PM EDT Colonoscopy order placed and submitted to scheduling. [...] 26, 2021 3:32 PM documented in this encounterParkwood Hospital04-25-[facility]22 History of Present illness Narrative* Jewell Linder MD - 12/25/2021 7:57 PM EDT HPI: Armin Vivas is a 36 year old female who presents for f/u - last seen 07/2021. She has gained 6#.She was in [facility] in October for upper abd pain. She had not had BM for about 5 days total - including before and after her admission. Since getting out of hospital she has had loose BM's up to 7x a day.She has rectal pain and abd pain but [...] (FLONASE) 50 mcg/actuation nasal spray Use 1 Sanborn in the nose. Loperamide HCl (IMODIUM) 2 [...] of Onset Coronary Artery Disease Mother Hx PA age 45 Diabetes Maternal Grandmother Social History Tobacco Use Smoking status: Current Every Day Smoker Packs/day: 0.50 Smokeless tobacco: Never Used Vaping Use Vaping Use: Never used Substance Use Topics Alcohol use: No Drug use: No ALLERGIES Allergen Reactions Morphine Other: See Comments "Heart feels funny", has safely taken percocet, dilaudid Other Ellsworth-3s Swelling NECTARINES Reglan [Metoclopram* Other: See Comments [...] EXAMINATION: BP 124/66 Pulse 94 Ht 5' 4" (1.63m) Wt 152 lb 3.2 oz (69.0kg) [...] ICD10: K52.9 (primary diagnosis Seen on prior CT"s in 2015 and 2016 and 2021 as above No change on Apriso or Lialda [facility] IBD panel c/w Crohn's - 12/2016 Colonoscopy 09/06/2016 - normal - random bx's normal 4. Nausea and vomiting, intractability of vomiting not specified, unspecified vomiting type - ICD9:787.01, ICD10: R11.2 Acute on chronic Started Reglan [...] the patient/guardian/responsible accompanying adult who is agreeable. Jewell Linder MD documented in this encounterParkwood Hospital04-25-2022 Miscellaneous Notes* Telephone Encounter - Jewell Linder MD - 12/25/2021 11:52 AM EDT The following approved medication requests have been transmitted electronically. Signed Prescriptions Disp Refills hyoscyamine SR (LEVBID) 0.375 mg 12 hr tablet 60 tablet 3 Sig: TAKE 1 TABLET BY MOUTH TWICE DAILY BRIANDA: No Authorizing Provider: JEWELL LINDER MD * Telephone Encounter - Sridevi Lozano MA - 12/25/2021 9:13 AM EDT Pharmacy faxed requesting the following refill Refill(s) Requested: Pending Prescriptions Disp Refills HYOSCYAMINE ER 0.375 MG TABLET,EXTENDED RELEASE,12 HR 60 tablet 3 Sig: TAKE 1 TABLET BY MOUTH TWICE DAILY BRIANDA: Yes ALLERGIES Allergen Reactions Morphine Other: See Comments "Heart feels funny", has safely taken percocet, dilaudid Other Ellsworth-3s Swelling NECTARINES Reglan [Metoclopram* Other: See Comments Blurry vision (home) [phone] (cell) Last Office Visit Date: 07/03/2021 Last [facility] Health Visit: Visit date not found Future Appointment: 12/26/2021 The patients preferred pharmacy has been captured for this encounter? yes Request is for script(s) to be escript to pharmacy. Sridevi Lozano MA documented in this encounterParkwood HospitalEvaluation note* Diagnosis Contusion of lower back and pelvis, initial encounter Acute bilateral low back pain without sciatica documented in this encounter [facility] Work Phone: Evaluation noteNo assessment information available [facility] Work Phone: Evaluation note* Diagnosis Abdominal pain, unspecified abdominal location- Primary Diarrhea, unspecified type Colitis Other and unspecified noninfectious gastroenteritis and colitis Gastroesophageal reflux disease without esophagitis Esophageal reflux Nausea and vomiting, unspecified vomiting type Nausea Nausea alone documented in this encounter [facility] note* Diagnosis Abdominal pain, unspecified abdominal location- Primary Diarrhea, unspecified type documented in this encounter [facility] note* Diagnosis Abdominal pain, unspecified abdominal location Diarrhea, unspecified type Preop testing Preoperative examination, unspecified Palpitations documented in this encounter [facility] note* Diagnosis Nausea Nausea alone documented in this encounter [facility] note* Diagnosis Diarrhea, unspecified type- Primary Irritable bowel syndrome with diarrhea Irritable bowel syndrome Nausea and vomiting, unspecified vomiting type documented in this encounter [facility] note* Diagnosis Diarrhea, unspecified type Nausea and vomiting, unspecified vomiting type documented in this encounter [facility] note* Diagnosis Diarrhea, unspecified type- Primary Irritable bowel syndrome with diarrhea Irritable bowel syndrome Nausea Nausea alone documented in this encounter [facility] note* Diagnosis Onset Date Resolution Status Hidradenitis acute Encounter for routine gynecological examination noneactive [facility] Work Phone: [facility] note* Diagnosis Irritable bowel syndrome with diarrhea Irritable bowel syndrome documented in this encounter [facility] note* Diagnosis Onset Date Resolution Status Hidradenitis acute Encounter for routine gynecological examination noneactive Groin abscess acute Hidradenitis acute Female Genital Symptoms none active [facility] Work Phone: evaluation note* Diagnosis Left upper quadrant abdominal pain- Primary Lower abdominal pain Abdominal pain, other specified site Right upper quadrant abdominal pain documented in this encounter [facility] note* Diagnosis Sialoadenitis of submandibular gland- Primary Lymphadenitis Lymphadenitis, unspecified, except mesenteric documented in this encounter [facility] note* Diagnosis Skin pain- Primary Disturbance of skin sensation Hidradenitis suppurativa Hidradenitis documented in this encounter [facility] note* Diagnosis Hidradenitis suppurativa- Primary Hidradenitis Disturbance of skin sensation Skin pain Disturbance of skin sensation documented in this encounter [facility] note* Diagnosis Left upper quadrant abdominal pain- Primary Crohn's disease of small intestine without complication (HCC) Other fatigue documented in this encounter [facility] Discharge instructions Additional Instructions See Dr. Jacob as scheduled or sooner if able.[facility] Work Phone: Hospital Discharge instructions Additional Instructions You can follow-up with your GI doctor in [place] until you can establish care here locally. You have been provided with Dr. Mishra's number for referral. These appointments are often booked several months out.[facility] Work Phone: Reason for referral (narrative)* Diagnostic Procedure Only (Routine) - Authorized Specialty Diagnoses / Procedures Referred By Contac t Referred To Contact MOLECULAR & FUNCTIONAL IMAGING Diagnoses Nausea Procedures NM GASTRIC EMPTYING SOLID GASTRIC EMPTYING STUDY Jewell Linder MD [address] [place] [address] [facility] [address] [place] [address] Referral ID Status Reason Start Date Expiration Date Visits Requested Visits Authorized [id number] Authorized Auto-Generat ed Referral 12/26/2021 01/25/2023 1 1 [facility] for referral (narrative)* Outpatient Procedure (Routine) - Pending Review Specialty Diagnoses / Procedures Referred By Contac t Referred To Contact [facility] Diagnoses Abdominal pain, unspecified abdominal location Diarrhea, unspecified type Procedures COLONOSCOPY DIAGNOSTIC COLONOSCOPY FLX DX W/COLLJ SPEC WHEN PFRMD Jewell Linder MD [address] [place] [address] [facility] [address] [place] [address] Referral ID Status Reason Start Date Expiration Date Visits Requested Visits Authorized [id number] Pending Review Auto-Generat ed Referral 12/26/2021 12/26/2022 1 1 [facility] for referral (narrative)* Outpatient Procedure (Routine) - Closed Specialty Diagnoses / Procedures Referred By Contac t Referred To Contact [facility] Diagnoses Abdominal pain, unspecified abdominal location Diarrhea, unspecified type Procedures COLONOSCOPY DIAGNOSTIC COLONOSCOPY FLX DX W/COLLJ SPEC WHEN PFRMD Jewell Linder MD [address] [facility] [address] [place] [address] [facility] [place] [address] [place] [address] Referral ID Status Reason Start Date Expiration Date V isits Requested Visits Authorized [id number] Closed Auto-Generate d Referral 01/08/2022 12/26/2022 1 1 [facility] for referral (narrative)* Diagnostic Procedure Only (Routine) - Closed Specialty Diagnoses / Procedures [facility] To Contact MOLECULAR & FUNCTIONAL IMAGING Diagnoses Nausea Procedures NM GASTRIC EMPTYING SOLID GASTRIC EMPTYING STUDY Jewell Linder MD [address] [facility] [address] [place] [address] Molecular & Functional Imaging [address] [id number] Referral ID Status Reason Start Date Expiration Date V isits Requested Visits Authorized [id number] Closed Auto-Generate d Referral 12/26/2021 01/25/2023 1 1 T [facility] for referral (narrative)* Outpatient Procedure (Routine) - Pending Review Specialty Diagnoses / Procedures [facility] Ref[facility] To Contact [facility] Diagnoses Diarrhea, unspecified type Nausea and vomiting, unspecified vomiting type Procedures BREATH TEST GLUCOSE BREATH HYDROGEN/METHANE TEST Eduardo Zuluaga MD [address] [address] [facility] [place] [address] Referral ID Status Reason Start Date Expiration Date Visits Requested Visits Authorized [id number] Pending Review Auto-Generat ed Referral 12/20/2022 12/21/2023 1 1 T [facility] for referral (narrative)* Consultation (Routine) - Pending Review Specialty Diagnoses / Procedures Referred By Contac t Referred To Contact Gastroenterology Diagnoses Left upper quadrant abdominal pain Lower abdominal pain Right upper quadrant abdominal pain Procedures [place] OFFICE/OUTPATIENT [facility] 60 MINUTES Azael Irene MD [address] [facility], [place] [address] [address]ishra, [address] [place] [address] Referral ID Status Reason Start Date Expiration Date Visits Requested Visits Authorized [id number] Pending Review Specialty Services Required 11/13/2023 11/12/2024 1 1 [facility] for referral (narrative)No reason for referral information availableWPremier [facility] Work Phone: Reason for visit Narrative* Outpatient Procedure (Routine) - Closed Specialty Diagnoses / Procedures Referred By Contmauricio t Referred To Contact [facility] Diagnoses Abdominal pain, unspecified abdominal location Diarrhea, unspecified type Procedures COLONOSCOPY DIAGNOSTIC COLONOSCOPY FLX DX W/COLLJ SPEC WHEN PFRMD Jewell Linder MD [facility] [address] [facility] [place] [address] [place] [address] Referral ID Status Reason Start Date Expiration Date V isits Requested Visits Authorized [id number] Closed Auto-Generate d Referral 01/08/2022 12/26/2022 1 1 [facility] for visit Narrative* Diagnostic Procedure Only (Routine) - Closed Specialty Diagnoses / Procedures Referred By Contac t Referred To Contact MOLECULAR & FUNCTIONAL IMAGING Diagnoses Nausea Procedures NM GASTRIC EMPTYING SOLID GASTRIC EMPTYING STUDY Jewell Linder MD [address] [address] Molecular & Functional Imaging [address] [place] [address] Referral ID Status Reason Start Date Expiration Date V isits Requested Visits Authorized [id number] Closed Auto-Generate d Referral 12/26/2021 01/25/2023 1 1 [facility] Reason for Referral Status Reason Specialty Diagnoses / Procedures Referre d By Contact Referred To Contact Open Radiology Diagnoses Right upper quadrant abdominal pain Procedures VL MESENTERIC ARTERY DUPLEX SCAN Azael Irene MD [address] [place] [address], [place] [address] Assessments Diagnosis Right upper quadrant abdominal pain Abdominal pain, right upper quadrant Advance Directives No Advanced Directives Records FoundDocuments on File Type Date Recorded 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 Advance Directives and Living Will Power of Supervisor [employer] Documents on File Type Date Recorded 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 ACP-Advance Directive ACP-Power of Supervisor [employer] Advance Directive Response Recorded Date/ Time Living Will No November 22, 2021 8:17pm Power of Supervisor [employer] No November 22 8:17pm Documents on File Type Date Recorded 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 Advance Directive(s) 11/24/2021 1:37 PM Advance Directive(s) 11/23/2021 10:50 PM Advance Directive(s) 11/01/2021 7:19 PM Advance Directive(s) 09/15/2021 1:31 PM Advance Directive(s) 09/06/2021 8:29 AM Advance Directive(s) 08/29/2021 6:40 PM Advance Directive(s) 12/07/2018 10:39 AM Advance Directive(s) 12/10/2017 1:32 PM Advance Directive(s) 06/27/2017 10:00 AM Documents on File Type Date Recorded 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 Advance Directive(s) 11/24/2021 1:37 PM Advance Directive(s) 11/23/2021 10:50 PM Advance Directive(s) 11/01/2021 7:19 PM Advance Directive(s) 09/15/2021 1:31 PM Advance Directive(s) 09/06/2021 8:29 AM Advance Directive(s) 08/29/2021 6:40 PM Advance Directive(s) 12/07/2018 10:39 AM Advance Directive(s) 12/10/2017 1:32 PM Advance Directive(s) 06/27/2017 10:00 AM Documents on File Type Date Recorded 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 Advance Directive(s) 01/08/2022 7:45 AM Advance Directive(s) 11/24/2021 1:37 PM Advance Directive(s) 11/23/2021 10:50 PM Advance Directive(s) 11/01/2021 7:19 PM Advance Directive(s) 09/15/2021 1:31 PM Advance Directive(s) 09/06/2021 8:29 AM Advance Directive(s) 08/29/2021 6:40 PM Advance Directive(s) 12/07/2018 10:39 AM Advance Directive(s) 12/10/2017 1:32 PM Advance Directive(s) 06/27/2017 10:00 AM Documents on File Type Date Recorded 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 Advance Directive(s) 01/08/2022 7:45 AM Advance Directive(s) 11/24/2021 1:37 PM Advance Directive(s) 11/23/2021 10:50 PM Advance Directive(s) 11/01/2021 7:19 PM Advance Directive(s) 09/15/2021 1:31 PM Advance Directive(s) 09/06/2021 8:29 AM Advance Directive(s) 08/29/2021 6:40 PM Advance Directive(s) 12/07/2018 10:39 AM Advance Directive(s) 12/10/2017 1:32 PM Advance Directive(s) 06/27/2017 10:00 AM Documents on File Type Date Recorded 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 Advance Directive(s) 01/22/2022 5:50 PM Advance Directive(s) 01/08/2022 7:45 AM Advance Directive(s) 11/24/2021 1:37 PM Advance Directive(s) 11/23/2021 10:50 PM Advance Directive(s) 11/01/2021 7:19 PM Advance Directive(s) 09/15/2021 1:31 PM Advance Directive(s) 09/06/2021 8:29 AM Advance Directive(s) 08/29/2021 6:40 PM Advance Directive(s) 12/07/2018 10:39 AM Advance Directive(s) 12/10/2017 1:32 PM Advance Directive(s) 06/27/2017 10:00 AM Advance Directive Response Recorded Date/ Time Living Will No March 27, 2022 8:14pm Power of Supervisor [employer] No March 27 8:14pm Advance Directive Response Recorded Date/ Time Living Will No April 19 1:31pm Power of Supervisor [employer] No April 19, 2 022 1:31pm Advance Directive Response Recorded Date/ Time Living Will No September 02 6:38pm Power of Supervisor [employer] No September 02 2 023 6:38pm Advance Directive Response Recorded Date/ Time Living Will No October 03 8:58pm Power of Supervisor [employer] No October 03, 2022 8:58pm Advance Directive Response Recorded Date/ Time Living Will No November 12, 2022 7:17pm Power of Supervisor [employer] No November 12 7:17pm Advance Directive Response Recorded Date/ Time Living Will No November 22, 2022 2:23am Power of Supervisor [employer] No November 22 2:23am Advance Directive Response Recorded Date/ Time Living Will No February 04, 2023 6 :05pm Power of Supervisor [employer] No February 04, 2023 6:05pm Advance Directive Response Recorded Date/ Time Living Will No May 03 2 023 3:59pm Power of Supervisor [employer] No May 03, 2023 3:59pm Advance Directive Response Recorded Date/ Time Living Will No July 23, 2 023 6:09pm Power of Supervisor [employer] No July 23, 2023 6:09pm Advance Directive Response Recorded Date/ Time Living Will No November 10, 2023 6:05pm Power of Supervisor [employer] No November 09 6:05pm Advance Directive Response Recorded Date/ Time Living Will No November 13, 2023 4:08pm Power of Supervisor [employer] No November 12 4:08pm Advance Directive Response Recorded Date/ Time Living Will No December 26, 2023 1:29pm Power of Supervisor [employer] No December 25 1:29pm Advance Directive Response Recorded Date/ Time Living Will No October 09 3:12pm Do you have a Healthcare Power of Supervisor Ship Maintenance [employer]? No October 09, 2024 3:12pm Living Will No August 19, 024 6:33pm Do you have a Healthcare Power of Supervisor [employer]? No August 19, 2024 6:33pm Living Will No August 27, 2 024 6:01pm Do you have a Healthcare Power of Supervisor Ship [employer]? No August 27, 2024 6:01pm Living Will No September 14 10:16am Do you have a Healthcare Power of Supervisor Ship [employer]? No September 14, 2024 10:16am Advance Directive Response Recorded Date/ Time Do you have a Healthcare Power of Supervisor Ship Maintenance [employer]? No January 03, 2025 7:50pm Do you have a Healthcare Power of Supervisor Ship Maintenance [employer]? No February 25, 2025 1:55pm Summary Purpose Family History No Family History Records Found Relationship Condition Age at Onset Recorded Date/T tanya mother Cardiac disease Unknown Presence of cardiac pacemaker Unknown grandfather Diabetes mellitus Unknown grandmother Diabetes mellitus Unknown Chief Complaint and Reason for Visit Chief Complaint abd pain Chief Complaint N/V/D WITH ABD PAIN Chief Complaint N/V/D WITH ABD PAIN VAGINAL BLEEDING Chief Complaint ABD PAIN LEFT OVARIAN CYST ABD PAIN BACK PAIN ABD Chief Complaint ABD PAIN BACK PAIN ABD ABD PAIN Chief Complaint ABD PAIN BACK PAIN ABD ABD PAIN VOMITING Chief Complaint ABD PAIN BACK PAIN ABD ABD PAIN VOMITING n/v Chief Complaint VOMITING n/v N/V/D Chief Complaint N/V/D Nausea/vomiting/abd pain 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 Reason for Visit Hidradenitis Encounter for routine gynecological examination Chief Complaint Nausea/vomiting/abd pain 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 Vulvovaginal symptoms nausea and vomiting Reason for Visit Hidradenitis Encounter for routine gynecological examination Groin abscess Hidradenitis Female Genital Symptoms Chief Complaint nausea and vomiting abd pain, vomiting Chief Complaint nausea and vomiting abd pain, vomiting ABD PAIN Chief Complaint abd pain, vomiting ABD PAIN CHEST PAIN Chief Complaint Admit Date ABDOMINAL PAIN August 19, 2024 5:11pm ABD PAIN August 27, 2024 2:52pm ED F/U - GALLBLADDER August 28, 2024 2:18pm DISCUSS SURGERY September 10, 2024 9: 33am Laparoscopic, Cholecystectomy with IOC J anuary 2024 9:17am Laparoscopic, Cholecystectomy with IOC J anuary 2024 9:35am PREOP September 22, 2024 9 :46am ABD PAIN October 09, 2024 1 1:47am 3 M FU November 09, 2024 9:3 9am CROHN'S DISEASE, RUQ PAIN, NAUSEA December 11, 2024 10:48am E ORDER December 14, 2024 9:4 0am Reason for Visit Admit Date Crohn's disease August 28, 2024 2:18pm Cholelithiasis August 28, 2024 2:18pm Right upper quadrant abdominal pain Dece mber 2023 2:18pm Crohn's disease September 10, 2024 9: 33am GERD (gastroesophageal reflux disease) J anuary 2024 9:33am Cholelithiasis September 10, 2024 9: 33am Right upper quadrant abdominal pain Kalpesh jasvir 2024 9:33am Diarrhea November 09, 2024 9:3 9am Chief Complaint Admit Date 3 M FU November 09, 2024 9:3 9am CROHN'S DISEASE, RUQ PAIN, NAUSEA December 11, 2024 10:48am E ORDER December 14, 2024 9:4 0am abdom January 03, 2025 7:25pm ear pain, chest other February 25, 2025 1: 17pm Reason for Visit Admit Date Diarrhea November 09, 2024 9:3 9am Medications Administered Section Inactive Administered Medications - [...] ized section and content) DATE CREATED AUTHOR 02/08/2020 [facility] DATE CREATED AUTHOR AUTHOR'S ORGANIZ ATION 05/03/2021 [facility] DATE CREATED AUTHOR AUTHOR'S ORGANIZ ATION 07/08/2021 [facility] DATE CREATED AUTHOR AUTHOR'S ORGANIZ ATION 01/10/[address] [facility] DATE CREATED AUTHOR AUTHOR'S ORGANIZ ATION 01/25/2024 [facility] DATE CREATED AUTHOR AUTHOR'S ORGANIZ ATION 02/11/2024 [facility] DATE CREATED AUTHOR AUTHOR'S ORGANIZ ATION 03/03/2025 [facility] Goals (unrecognized section and content) Goals may be documented in a n alternate sectionGoals may be documented in an alternate sectionGoals may be documented in an alternate sectionGoals may be documented in an alternate sectionGoals may be documented in an alternate sectionGoals may be documented in an alternate sectionGoals may be documented in an alternate sectionGoals may be documented in an alternate sectionGoals may be documented in an alternate sectionGoals may be documented in an alternate sectionGoals may be documented in an alternate sectionGoals may be documented in an alternate sectionGoals may be documented in an alternate sectionGoals may be documented in an alternate section Source Comments (unrecognize d section and content) In the event this informatio n is protected by the Federal Confidentiality of Alcohol and Drug Abuse Patient Records regulations: The Federal rules restrict any use of the information to criminally investigate or prosecute any alcohol or drug abuse patient.[facility] Hospital[facility] the event this information is protected by the Federal Confidentiality of Alcohol and Drug Abuse Patient Records regulations: The Federal rules restrict any use of the information to criminally investigate or prosecute any alcohol or drug abuse patient.[facility] HospitalIn the event this information is protected by the Federal Confidentiality of Alcohol and Drug Abuse Patient Records regulations: The Federal rules restrict any use of the information to criminally investigate or prosecute any alcohol or drug abuse patient.[facility] HospitalIn the event this information is protected by the Federal Confidentiality of Alcohol and Drug Abuse Patient Records regulations: The Federal rules restrict any use of the information to criminally investigate or prosecute any alcohol or drug abuse patient.[facility] HospitalIn the event this information is protected by the Federal Confidentiality of Alcohol and Drug Abuse Patient Records regulations: The Federal rules restrict any use of the information to criminally investigate or prosecute any alcohol or drug abuse patient.[facility] HospitalIn the event this information is protected by the Federal Confidentiality of Alcohol and Drug Abuse Patient Records regulations: The Federal rules restrict any use of the information to criminally investigate or prosecute any alcohol or drug abuse patient.[facility] HospitalIn the event this information is protected by the Federal Confidentiality of Alcohol and Drug Abuse Patient Records regulations: The Federal rules restrict any use of the information to criminally investigate or prosecute any alcohol or drug abuse patient.[facility] HospitalIn the event this information is protected by the Federal Confidentiality of Alcohol and Drug Abuse Patient Records regulations: The Federal rules restrict any use of the information to criminally investigate or prosecute any alcohol or drug abuse patient.[facility] HospitalIn the event this information is protected by the Federal Confidentiality of Alcohol and Drug Abuse Patient Records regulations: The Federal rules restrict any use of the information to criminally investigate or prosecute any alcohol or drug abuse patient.[facility] HospitalIn the event this information is protected by the Federal Confidentiality of Alcohol and Drug Abuse Patient Records regulations: The Federal rules restrict any use of the information to criminally investigate or prosecute any alcohol or drug abuse patient.[facility] HospitalIn the event this information is protected by the Federal Confidentiality of Alcohol and Drug Abuse Patient Records regulations: The Federal rules restrict any use of the information to criminally investigate or prosecute any alcohol or drug abuse patient.[facility] HospitalIn the event this information is protected by the Federal Confidentiality of Alcohol and Drug Abuse Patient Records regulations: The Federal rules restrict any use of the information to criminally investigate or prosecute any alcohol or drug abuse patient.[facility] HospitalIn the event this information is protected by the Federal Confidentiality of Alcohol and Drug Abuse Patient Records regulations: The Federal rules restrict any use of the information to criminally investigate or prosecute any alcohol or drug abuse patient.[facility] HospitalIn the event this information is protected by the Federal Confidentiality of Alcohol and Drug Abuse Patient Records regulations: The Federal rules restrict any use of the information to criminally investigate or prosecute any alcohol or drug abuse patient.[facility] HospitalIn the event this information is protected by the Federal Confidentiality of Alcohol and Drug Abuse Patient Records regulations: The Federal rules restrict any use of the information to criminally investigate or prosecute any alcohol or drug abuse patient.[facility] HospitalIn the event this information is protected by the Federal Confidentiality of Alcohol and Drug Abuse Patient Records regulations: The Federal rules restrict any use of the information to criminally investigate or prosecute any alcohol or drug abuse patient.[facility] HospitalIn the event this information is protected by the Federal Confidentiality of Alcohol and Drug Abuse Patient Records regulations: The Federal rules restrict any use of the information to criminally investigate or prosecute any alcohol or drug abuse patient.[facility] Reason for Visit (unrecogniz ed section and content) Reason Comments Follow Up F/U - attempt made. No answer. Reason Comments Refill Request Reason Comments Established Patient Follow-Up Reason Comments Orders colonoscopy schedule d Reason Onset Date Comments Follow Up Tests Results 01/10/2022 Reason Comments Follow Up Tests Results Reason Onset Date Comments Procedure 03/13/2023 Breath Test - Gl ucose Specialty Diagnoses / Procedures Referred By Demar rubio Referred To Contact [facility] Diagnoses Diarrhea, unspecified type Nausea and vomiting, unspecified vomiting type Procedures BREATH TEST GLUCOSE BREATH HYDROGEN/METHANE TEST Eduardo Zuluaga MD [address] [address] [facility] [address] [place] [address] Referral ID Status Reason Start Date Expiration Date V isits Requested Visits Authorized [id number] Closed Auto-Generate d Referral 12/20/2022 12/21/2023 1 1 Reason Comments F/U 3 Month Reason Comments Received Outside Medical Records Reason Onset Date Comments 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 Told to schedule with fast food fry cook. Reason Comments Swollen Glands Left side and very p ainful Reason Comments Hair/Scalp Problem Reason Onset Date Comments Chest Pain 02/10/2024 Reason Comments Derm Problem Reason Comments Fatigue Not feel like myself for last 4 days Constipation No bm x 3 days setti ng up with new GI Care Teams (unrecognized sec tion and content) Header Up Relationship Specialty Start Date End Date Maria VictoriaAzael mayen [address] [place] [address] PCP - General Family Practice 06/22/15 Hector Irenejennifer Biggs [address] [place] [address] Family Practice 06/22/15 Header Up Relationship Specialty Start Date End Date Azael Irene [address] [place] [address] PCP - General Family Practice 06/22/15 Hector Irenejennifer Arciniegaoy [address] [place] [address] Family Practice 06/22/15 Header Up Relationship Specialty Start Date End Date Azael Irene [address] [place] [address] PCP - General Family Practice 06/22/15 Azael Irene [address] [place] [address] Family Practice 06/22/15 Header Up Relationship Specialty Start Date End Date Azael Irene [address] [place] [address] PCP - General Family Practice 06/22/15 Azael Irene [address] [place] [address] Family Practice 06/22/15 Header Up Relationship Specialty Start Date End Date Azael Irene [address] [place] [address] PCP - General Family Practice 06/22/15 Azael Irene [address] [place] [address] Family Practice 06/22/15 Header Up Relationship Specialty Start Date End Date Azael Irene [address] [place] [address] PCP - General Family Practice 06/22/15 Azael Irene [address] [place] [address] Family Practice 06/22/15 Header Up Relationship Specialty Start Date End Date Azael Irene [address] [place] [address] PCP - General Family Practice 06/22/15 Azael Irene [address] [place] [address] Family Practice 06/22/15 Header Up Relationship Specialty Start Date End Date Azael Irene [address] [place] [address] PCP - General Family Practice 06/22/15 Azael Irene [address] [facility] [address] Family Practice 06/22/15 Header Up Relationship Specialty Start Date End Date Azael Irene [address] [facility] [address] PCP - General Family Medicine 06/22/15 Azael Irene [address] [facility] [place] [address] Family Medicine 06/22/15 Team Status: Active Member Role Status Dates Dr. Azael Irene MD Family Provider Active Dr. Azael Irene MD Primary Care Provider Active Team Status: Inactive Member Role Status Dates Dr. Azael Irene MD Primary Care Provider Active Dr. Camilo Lux DO Attending Provider, Emergency Provide r Active Team Status: Inactive Member Role Status Dates Dr. Azael Irene MD Primary Care Provider Active Dr. Niyah Hankins MD Attending Provider, Emergency Provider Active Team Status: Inactive Member Role Status Dates Dr. Azael Irene MD Primary Care Provider Active Dr. Jessica Quintana MD Attending Provider, Emergency Provider Active Team Status: Inactive Member Role Status Dates Dr. Azael Irene MD Primary Care Provider Active Dr. Niyah Hankins MD Emergency Provider Active Team Status: Inactive Member Role Status Dates Dr. Azael Irene MD Primary Care Provider Active Dr. Gaudencio Nair DO Emergency Provider Active Header Up Relationship Specialty Start Date End Date Azael Irene [address] [facility] [address] PCP - General Family Medicine 06/22/15 Azael Irene [address] [place] [address] [facility] Medicine 06/22/15 Team Status: Inactive Member Role Status Dates Dr. Azael Irene MD Primary Care Provider Active Dr. Gaudencio Nair DO Attending Provider, Emergency Pr nora Active Team Status: Inactive Member Role Status Dates Dr. Azael Irene MD Primary Care Provider Active Dr. Rikki Maddox MD Emergency Provider Active Header Up Relationship Specialty Start Date End Date Azael Irene [address] [place] [address] PCP - General Family Medicine 06/22/15 Azael Irene [address] [place] [address] Family Medicine 06/22/15 Header Up Relationship Specialty Start Date End Date Azael Irene [address] [place] [address] PCP - General Family Medicine 06/22/15 Azael Irene [address] [place] [address] Family Medicine 06/22/15 Team Status: Inactive Member Role Status Dates Dr. Azael Irene MD Primary Care Provider, Referri Provider Active Barbra Moser FEEDER ASSOCIATE, FEEDER ASSOCIATE-C Attending Provider Active Team Status: Inactive Member Role Status Dates Dr. Azael Irene MD Primary Care Provider Active Dr. Rikki Maddox MD Attending Provider, Emergency Provider Active Team Status: Inactive Member Role Status Dates Dr. Azael Irene MD Primary Care Provider Active Dr. Pedro Malhotra DO Attending Provider, Emergency P patricia Active Header Up Relationship Specialty Start Date End Date Azael Irene [address] [place] [address] PCP - General Family Medicine 06/22/15 Azael Irene [address] [facility], [place] [id number] Family Medicine 06/22/15 Header Up Relationship Specialty Start Date End Date Azael Irene [address] [place], [place] [id number] PCP - General Family Medicine 06/22/15 Azael Irene [address] [place], [place] [id number] Family Medicine 06/22/15 Team Status: Inactive Member Role Status Dates Dr. zAael Irene MD Primary Care Provider, Referri Provider Active Dr. Adrianna Mota MD Attending Provider Active Team Status: Inactive Member Role Status Dates Dr. Azael Irene MD Primary Care Provider Active Dr. Adrianna Mota MD Attending Provider Active Team Status: Inactive Member Role Status Dates Dr. Azael Irene MD Primary Care Provider Active Dr. Earl Smith DO Emergency Provider Active Team Status: Inactive Member Role Status Dates Dr. Azael Irene MD Primary Care Provider Active Dr. Earl Smith DO Attending Provider, Emergency P patricia Active Team Status: Inactive Member Role Status Dates Dr. Azael Irene MD Primary Care Provider Active Rad Wilkerson MD Emergency Provider Active Header Up Relationship Specialty Start Date End Date Azael Irene MD [address] [facility] [place] [address] PCP - General 06/09/15 Team Status: Inactive Member Role Status Dates Dr. Azael Irene MD Primary Care Provider Active Rad Wilkerson MD Attending Provider, Emergency Provid er Active Team Status: Inactive Member Role Status Dates Dr. Azael Irene MD Primary Care Provider Active Dr. Dylan [place] , DO Emergency Provider Active Header Up Relationship Specialty Start Date End Date Azael Irene MD [address] [facility], [place] [id number] PCP - General 06/09/15 Header Up Relationship Specialty Start Date End Date Azael Irene [address] [facility], [place] [id number] PCP - General Family Medicine 06/22/15 Azael Irene [address] [facility] [place] [id number] Family Medicine 06/22/15 Header Up Relationship Specialty Start Date End Date Azael Irene MD [address] [facility] [place] [address] PCP - General 06/09/15 Header Up Relationship Specialty Start Date End Date Azael Irene [address] [facility], [place] [id number] PCP - General Family Medicine 06/22/15 Azael Irene [address] [place] [place] [place] [address] Family Medicine 06/22/15 Header Up Relationship Specialty Start Date End Date Azael Irene MD [address] [facility], [place] [id number] PCP - General 06/09/15 Team Status: Active Member Role Status Dates Dr. Azael Irene MD Primary Care Provider Active Team Status: Inactive Member Role Status Dates Dr. Azael Irene MD Primary Care Provider Active Start: August 19, 2024 End: August 19, 2024 DrHetal Smith DO Attending Provider Active Start: August 19, 2024 End: August 19, 2024 Dr. Earl Smith DO Emergency Provider Active Start: August 19, 2024 End: August 19, 2024 Team Status: Inactive Member Role Status Dates Dr. Azael Irene MD Primary Care Provider Active Start: August 27, 2024 End: August 27, 2024 Dr. Gabe Harris MD Attending Provider Active Start: August 27, 2024 End: August 27, 2024 Dr. Gabe Harris MD Referring Provider Active Start: August 27, 2024 End: August 27, 2024 Dr. Gabe Harris MD Emergency Provider Active Start: August 27, 2024 End: August 27, 2024 Team Status: Inactive Member Role Status Dates Dr. Azael Irene MD Primary Care Provider Active Start: August 28, 2024 End: August 28, 2024 Dr. Azael Irene MD Referring Provider Active Start: August 28, 2024 End: August 28, 2024 Dr. Darlene Johnson MD Attending Provider Active Start: August 28, 2024 End: August 28, 2024 Team Status: Inactive Member Role Status Dates Dr. Azael Irene MD Primary Care Provider Active Start: September 10, 2024 End: September 10, 2024 Dr. Azael Irene MD Referring Provider Active Start: September 10, 2024 End: September 10, 2024 Dr. Darlene Johnson MD Attending Provider Active Start: September 10, 2024 End: September 10, 2024 Team Status: Inactive Member Role Status Dates Dr. Azael Irene MD Primary Care Provider Active Start: September 22, 2024 End: September 22, 2024 Dr. Darlene Johnson MD Attending Provider Active Start: September 22, 2024 End: September 22, 2024 Dr. Darlene Johnson MD Referring Provider Active Start: September 22, 2024 End: September 22, 2024 Team Status: Active Member Role Status Dates Dr. Azael Irene MD Primary Care Provider Active Start: September 22, 2024 Dr. Darlene Johnson MD Attending Provider Active Start: September 22, 2024 Dr. Darlene Johnson MD Referring Provider Active Start: September 22, 2024 Dr. Darlene Johnson MD Other Provider Active S tart: September 22, 2024 Team Status: Active Member Role Status Dates Dr. Azael Irene MD Primary Care Provider Active Start: September 22, 2024 End: September 22, 2024 Dr. Marlene Wayne MD Attending Provider Activ e Start: September 22, 2024 End: September 22, 2024 Dr. Nestor Asif MD Referring Provider Active St art: September 22, 2024 End: September 22, 2024 Team Status: Inactive Member Role Status Dates Dr. Azael Irene MD Primary Care Provider Active Start: October 09, 2024 End: October 09, 2024 Dr. Vanita Pedroza DO Attending Provider Active Start: October 09, 2024 End: October 09, 2024 Dr. Vanita Pedroza DO Emergency Provider Active Start: October 09, 2024 End: October 09, 2024 Team Status: Inactive Member Role Status Dates Dr. Azael Irene MD Primary Care Provider Active Start: November 09, 2024 End: November 09, 2024 Dr. Azael Irene MD Referring Provider Active Start: November 09, 2024 End: November 09, 2024 Niyah Arevalo FEEDER ASSOCIATE-C Attending Provider Active Start: November 09, 2024 End: November 09, 2024 Team Status: Inactive Member Role Status Dates Dr. Azael Irene MD Primary Care Provider Active Start: December 11, 2024 End: December 11, 2024 Niyah Arevalo FEEDER ASSOCIATE-C Attending Provider Active Start: December 11, 2024 End: December 11, 2024 Niyah Arevalo , FEEDER ASSOCIATE-C Referring Provider Active Start: December 11, 2024 End: December 11, 2024 Team Status: Active Member Role Status Dates Dr. Azael Irene MD Primary Care Provider Active Start: December 14, 2024 Niyah Arevalo , FEEDER ASSOCIATE-C Attending Provider Active Start: December 14, 2024 Niyah Arevalo , FEEDER ASSOCIATE-C Referring Provider Active Start: December 14, 2024 Team Status: Inactive Member Role Status Dates Dr. Azael Irene MD Primary Care Provider Active Start: December 14, 2024 End: December 14, 2024 Niyah Arevalo FEEDER ASSOCIATE-C Attending Provider Active Start: December 14, 2024 End: P[place], [id number] Referring Provider Active Start: December 14, 2024 End: December 14, 2024 Team Status: Inactive Member Role Status Dates Dr. Azael Irene MD Primary Care Provider Active Start: January 03, 2025 End: January 03, 2025 Dr. Erick Ackerman MD Attending Provider Active S tart: January 03, 2025 End: January 03, 2025 Dr. Erick Ackerman MD Emergency Provider Active S tart: January 03, 2025 End: January 03, 2025 Team Status: Inactive Member Role Status Dates Dr. Azael Irene MD Primary Care Provider Active Start: February 25, 2025 End: February 25, 2025 Rad Wilkerson MD Emergency Provider Active Star t: February 25, 2025 End: February 25, 2025 FOR RECORDS PERTAINING TO PATIENTS WHO ARE [...] BE BASED ON THE PRIMARY CLINICAL RECORDS. [employer] provides no warranty or guarantee of the accuracy or completeness of information in this document.
== END 2025-05-28 19:48 | disposition left against medical advice (07) ==
LOC: ED 20:03
PROVIDERS: PCP Family Medicine
DX: Z53.21 Procedure and treatment not carried out due to patient leaving prior to being seen by health care provider (principal)

== ENCOUNTER 2025-05-31 05:35 | Observation (INO) | payer OTHER, SELFPAY ==
[2025-05-31] VITALS (7 sets, daily range): BP systolic 100–143; BP diastolic 51–87; PULSE 68–96; RESP 14–24; TEMP 35.9–36.9; O2SAT 93–100; BMI 26.7; BMI 26.0
--- NOTE | 2025-05-31 05:54 | CT_ITS ---
PROCEDURE: ABDOMEN/PELVIS W IV CONT ONLY 05/31/2025 REASON FOR EXAM: ABD PAIN TECHNIQUE: Procedure Code: [id number] Modality: CT Procedure: ABDOMEN/PELVIS W IV CONT ONLY Coronal and Sagittal reconstruction series were provided. CONTRAST: 100 cc Isovue 370 One or more dose reduction techniques were used (e.g., Automated exposure control, adjustment of the mA and/or kV according to patient size, use of iterative reconstruction technique. RADIATION DOSE SUMMARY: DLP: 625 mGycm COMPARISON: January 03, 2025 FINDINGS: Lung bases: Clear Liver: Unremarkable Gallbladder: Absent Spleen: Unremarkable Pancreas: Unremarkable Adrenals: Unremarkable Kidneys: Unremarkable Bladder: Unremarkable Reproductive Organs: Follicles are noted in the right ovary with the largest measuring 1.7 cm. Bowel: The left colon appears decompressed. The right colon is fluid-filled. Small bowel loops are not distended. Appendix: Unremarkable Lymph nodes: There is no pathologic adenopathy by size criteria. Vasculature: Unremarkable Peritoneum / Retroperitoneum: There is no free air or free fluid. Bones: There is no acute bony abnormality. CT/Abdomen/Pelvis W IV Cont ONLY IMPRESSION: No acute abnormality is identified in the abdomen or pelvis. Reading Location: [facility]
--- NOTE | 2025-05-31 06:07 | EX.ED.DYSGE1 ---
HPI History of Present Illness Chief Complaint: Abd Pain Narrative Narrative: Patient is a 39-year-old female with past medical history of Crohn's, GERD, anxiety, depression who presented to the emergency department chief complaint abdominal pain nausea vomiting. States that her symptoms started on Saturday and have been progressively worsening prompting her to come here to the emergency department to be further evaluated. Patient denies any sick contacts. States that she has had her gallbladder out the past. She states that she is passing gas. Notes that she is having diarrhea currently. Denies any fevers PFSH PFSH Medical History History of steroid therapy Dietary restriction Hidradenitis suppurativa Wears glasses Wears contact lenses History of ulceration Gastric reflux Smoker History of irregular heartbeat Groin abscess Left ovarian cyst Stephanie Tobar infection Colitis Gestational diabetes Crohns disease Depression Anxiety Home Medications ?Medication ?Instructions ?Recorded ?Last Taken ?Type alprazolam 1 mg tablet 1 mg PO TID PRN anxiety 11/15/23 07/09/24 History cetirizine 10 mg tablet 10 mg PO DAILY PRN allergy symptoms 11/15/23 07/09/24 History pantoprazole 40 mg tablet,delayed 40 mg PO QDAY #90 tabs 11/09/24 02/24/25 Rx release acetaminophen 500 mg tablet 1,000 mg PO Q6H PRN fever or pain 02/25/25 02/25/25 History cholestyramine (with sugar) 4 gram 4 g PO DAILY 02/25/25 02/24/25 History powder for susp in a packet (Questran) citalopram 20 mg tablet 20 mg PO DAILY 02/25/25 02/24/25 History diphenoxylate-atropine 2.5 1 tab PO 4X/DAY PRN diarrhea 02/25/25 Unknown History mg-0.025 mg tablet (Lomotil) lisdexamfetamine 30 mg capsule 30 mg PO DAILY 02/25/25 02/24/25 History ondansetron 4 mg disintegrating 4 mg PO Q8H PRN PRN Nausea #15 tabs 02/25/25 Unknown Rx tablet ondansetron 4 mg disintegrating 4 mg PO Q8H PRN nausea 02/25/25 Unknown History tablet promethazine 25 mg tablet 25 mg PO Q6H PRN Nausea 02/25/25 02/25/25 History Allergy/AdvReac Type Severity Reaction Status Date / Time nectarine Allergy Angioedema Verified 05/31/25 05:36 metoclopramide (From Reglan) AdvReac headache Verified 05/31/25 05:36 Family History Mother Heart disease Pacemaker Grandfather Diabetes Grandmother Diabetes Surgical History History of cholecystectomy History of esophagogastroduodenoscopy (EGD) (~2018) History of colonoscopy (~2017) History of wisdom tooth extraction Social History household members: spouse Smoking Status: Current every day smoker tobacco type: cigarettes alcohol intake: never substance use type: does not use caffeine: Yes what type of physical activity do you participate in: walking seatbelt use: always do you feel safe at home: Yes additional social history: [employer] ROS ROS ED ROS Narrative Constitutional: Denies any fevers, chills, headaches Eyes: Denies double vision blurry vision change in vision Cardiovascular: No chest pain Respiratory: Denies shortness of breath Abdomen: Complains of abdominal pain as noted above as well as nausea vomiting : Denies urinary symptoms Neurological: Denies any numbness, weakness, tingling Musculoskeletal: Denies back pain Skin: Denies any rashes or lesions EXAM Physical Exam Narrative Exam Narrative: General: Patient was lying in bed rest comfortably did not appear to be acute distress Head: Atraumatic, normocephalic Eyes: PERRL bilaterally, EOMI bilaterally, no conjunctival injection noted Neck: Soft, supple, trachea midline Cardiovascular: Regular rate and rhythm Respiratory: Clear to auscultation bilaterally Abdomen: Soft, nondistended, diffuse tenderness to palpation no rebound guarding on exam Extremities: +5/5 strength noted in the bilateral upper and lower extremities Neurological: Patient following commands as she was at [facility] the year is 2024 Skin: Warm, dry, intact no rashes or lesions noted Const Vital Signs: 05/31/25 05:36 05/31/25 07:36 Temperature 96.7 F L Temperature Source Temporal Pulse Rate 91 68 Respiratory Rate 24 H 18 Blood Pressure 121/83 H 134/84 H Blood Pressure Mean 95 100 Pulse Ox 100 93 Oxygen Delivery Method Room Air Room Air MDM MDM MDM Narrative Medical decision making narrative: Patient is a 39-year-old female who presents to the emergency department the chief complaint of abdominal pain nausea vomiting. On the differential diagnose includes but not limited to pancreatitis, appendicitis, bowel obstruction, viral gastroenteritis, Crohn's flare. Once workup is obtained reviewed she will be reevaluated. Patient states the Zofran EMS gave her is not helping her. She will be given IV fluids, Compazine as well as Bentyl. Patient's CBC was significant for leukocytosis of 26,000, hemoglobin 13.7. CBC reviewed and showed a leukocytosis of 26,000, he was 13.7, platelet count of 427. Patient sodium was 130, potassium 3.1 and she was ordered 40 mill equivalents of oral supplementation, anion gap is 17, carbon dioxide low at 18. Patient AST and ALT are 17 and 13 respectively. Patient lipase normal at 26, test negative. Patient urinalysis showed 100 leukocyte esterase 0-5 white cells with 3+ bacteria she does not have any urinary symptoms at this point time. Patient CT ab pelvis with IV contrast reviewed and showed no acute abnormalities identified in the abdomen or pelvis. Patient had persistent vomiting down here in the emergency department even after the Zofran and Compazine therefore she was given Haldol. Patient states that she is still having pain and nausea and is unable to take the oral medications that is prescribed therefore she was ordered IV morphine. At 8:00 AM there is no identifiable source infection therefore I do not believe she warrants any IV antibiotics. At this point time will discuss case with hospitalist for admission for her intractable abdominal pain nausea and vomiting. Patient was ordered IV potassium supplementation. Discussed case with hospitalist Dr. Wagner who accept patient for admission. Patient was notified is agreeable to this plan all question concerns answered at bedside. Lab Data Labs: Laboratory Results - last 24 hr 05/31/25 06:20 WBC 26.0 H RBC 4.58 Hgb 13.7 Hct 39.1 MCV 85.4 MCH 29.9 MCHC 35.0 RDW Std Deviation 41.8 RDW Coeff of Dimitrios 13.3 Plt Count 427 MPV 9.8 Immature Gran % (Auto) 1.000 H Neut % (Auto) 87.6 H Lymph % (Auto) 5.7 L [place] % (Auto) 5.1 Eos % (Auto) 0.1 Baso % (Auto) 0.5 Absolute Neuts (auto) 22.8 H Absolute Lymphs (auto) 1.49 Nucleated RBC % 0 Differential Comment SCANNED Sodium 138 Potassium 3.1 L Chloride 103 Carbon Dioxide 18.8 L Anion Gap 17 H BUN 12 Creatinine 0.64 L Estim Creat Clear Calc 116.09 Est GFR (MDRD) Non-Af 117 BUN/Creatinine Ratio 18.7 Glucose 174 H Calcium 9.4 Total Bilirubin < 0.15 AST 17 ALT 13 Alkaline Phosphatase 71 Total Protein 6.7 Albumin 4.2 Globulin 2.5 Albumin/Globulin Ratio 1.7 Lipase 26 Serum , Qual NEGATIVE Urine Color Yellow Urine Clarity Clear Urine pH 5.0 Ur Specific [place] 1.025 Urine Protein 30 H Urine Glucose (UA) Normal Urine Ketones 15 H Urine Occult Blood 50 H Urine Nitrite Negative Urine Bilirubin 1 H Urine Urobilinogen 1 H Ur Leukocyte Esterase 100 H Urine RBC 0-5 SEEN Urine WBC 0-5 SEEN Ur Squamous Epith Cells 10-25 SEEN Ur Renal Epithelial Cell 0-5 SEEN Calcium Oxalate Crystal 1+ Urine Bacteria 3+ Urine Mucus 3+ Radiography Diagnostic Testing: Clinical Impression(s) from Imaging Studies Abdomen/Pelvis CT 05/31/25 05:54 IMPRESSION: No acute abnormality is identified in the abdomen or pelvis. [facility] Discharge Plan Dx/Rx/DC Orders Clinical Impression: Abdominal pain, Intractable nausea and vomiting, Hx of Crohn's disease, GERD (gastroesophageal reflux disease) Disposition Disposition: Acute Care Hospital [facility]
[2025-05-31] MEDS: 0.9% Normal Saline (1000mL) 1,000 ML 999 ML IV ×2 (06:20→07:44)
[2025-05-31 06:30] LABS: Hematocrit 39.1 % (37-47); Hemoglobin 13.7 g/dL (12.0-15.0); Immature Granulocytes Count 0.250 X10^3/uL (0.0-0.0); Mean Corp Hgb Conc 35.0 g/dL (32-36); Mean Corpuscular Volume 85.4 fL (81-99); Mean Platelet Vol. 9.8 fl (6.2-12.0); NRBC Flagged by Analyzer 0 % (0-5); POSITIVE DIFFERENTIAL YES; Platelet Count 427 K/mm3 (150-450); RBC Distribution Width CV 13.3 % (11.6-14.6); RBC Distribution Width SD 41.8 fl (35.1-43.9); Red Blood Count 4.58 M/mm3 (4.2-5.4); White Blood Count 26.0 K/mm3 (4.4-11.0)
[2025-05-31 06:31] LABS: Color, Urine Yellow (Yellow); Differential Indicated SCAN CRITERIA MET; Glucose, Dipstick Normal (Normal); Ketone-Dipstick 15 mg/dl (Negative); Leukocyte Esterase-Dipstick 100 /ul (Negative); Nitrite-Dipstick Negative (Negative); Occult Blood-Urine 50 /ul (Negative); Protein-Dipstick 30 mg/dl (Negative); Specific Gravity, Urine 1.025 (1.002-1.030)
[2025-05-31 06:34] LABS: Urine Bilirubin Dipstick 1 mg/dL (Negative)
[2025-05-31 06:43] LABS: Calcium Oxalate Crystals Ur 1+ /hpf (<or=2+); Mucous, Urine 3+ /hpf (<or=2+); Red Blood Cells-Urine 0-5 SEEN /hpf (0-5); Squamous Epithelial Cells - UA 10-25 SEEN /hpf (5-10)
[2025-05-31 06:47] LABS: Internal QC Validated? YES +Cl - CLEAR BKGD; Pregnancy, Serum, hCG Quali. NEGATIVE Negative
[2025-05-31 06:48] LABS: Record Kit Lot#, Serum Preg. 0000964736
[2025-05-31 06:54] LABS: AST(SGOT) 17 U/L (<=31); Alanine Aminotransfer ALT/SGPT 13 U/L (<=34); Albumin, Serum 4.2 g/dL (3.5-5.0); Alkaline Phosphatase 71 U/L (35-104); Anion Gap 17 (5-15); BUN 12 mg/dL (4-19); BUN/Creat Ratio 18.7 RATIO (10-20); Calcium,Total 9.4 mg/dL (7.6-11.0); Carbon Dioxide 18.8 mmol/L (21.0-32.0); Chloride 103 mmol/L (98-108); Estimated Creatinine Clearance 116.09 ml/min (50-250); Globulin 2.5 g/dL (2.2-4.2); Glucose 174 mg/dL (70-99); Lipase 26 U/L (13-75); Potassium 3.1 mmol/L (3.3-5.1)
[2025-05-31 07:02] LABS: Differential Comment SCANNED
[2025-05-31 08:27] LABS: Magnesium 1.8 mg/dL (1.5-2.2)
[2025-05-31] MEDS: Potassium Phosphate 45 MM in 0.9% Normal Saline (500mL Bag) 500 ML 85 MM IV (09:36)
[2025-05-31] MEDS: 0.9% Saline Lock 10 ML Syringe IV ×2 (09:36→23:48)
[2025-05-31] MEDS: 0.9% Normal Saline (1000mL) 1,000 ML 150 ML IV ×3 (09:36→22:16)
--- NOTE | 2025-05-31 09:47 | PCM.HP.STD ---
HPI - General General Date of Admission: 05/31/25 HPI Narrative ARMIN VIVAS, is a 39 F who presents to the hospital with abdominal pain as well as nausea and vomiting. She does have a history of Crohn's disease so CT scan of her abdomen pelvis were obtained but it did not show any pathology or signs of abdominal inflammation. She did have a leukocytosis of 26 at this time appears to be reactive as she is afebrile. She is dehydrated the creatinine is normal. Phosphorus is 0.7 and her potassium is 3.1 in the emergency room she was given IV fluids and started on potassium phosphate. She says her symptoms started on Saturday and has progressively gotten worse with increasing frequency of her nausea, vomiting, and diarrhea. [facility] Medical History History of steroid therapy Dietary restriction Hidradenitis suppurativa Wears glasses Wears contact lenses History of ulceration Gastric reflux Smoker History of irregular heartbeat Groin abscess Left ovarian cyst Stephanie Tobar infection Colitis Gestational diabetes Crohns disease Depression Anxiety Home Medications ?Medication ?Instructions ?Recorded ?Last Taken ?Type alprazolam 1 mg tablet 1 mg PO TID PRN anxiety 11/15/23 07/09/24 History cetirizine 10 mg tablet 10 mg PO DAILY PRN allergy symptoms 11/15/23 07/09/24 History pantoprazole 40 mg tablet,delayed 40 mg PO QDAY #90 tabs 11/09/24 02/24/25 Rx release acetaminophen 500 mg tablet 1,000 mg PO Q6H PRN fever or pain 02/25/25 02/25/25 History cholestyramine (with sugar) 4 gram 4 g PO DAILY 02/25/25 02/24/25 History powder for susp in a packet (Questran) citalopram 20 mg tablet 20 mg PO DAILY 02/25/25 02/24/25 History diphenoxylate-atropine 2.5 1 tab PO 4X/DAY PRN diarrhea 02/25/25 Unknown History mg-0.025 mg tablet (Lomotil) lisdexamfetamine 30 mg capsule 30 mg PO DAILY 02/25/25 02/24/25 History ondansetron 4 mg disintegrating 4 mg PO Q8H PRN PRN Nausea #15 tabs 02/25/25 Unknown Rx tablet ondansetron 4 mg disintegrating 4 mg PO Q8H PRN nausea 02/25/25 Unknown History tablet promethazine 25 mg tablet 25 mg PO Q6H PRN Nausea 02/25/25 02/25/25 History Allergy/AdvReac Type Severity Reaction Status Date / Time nectarine Allergy Angioedema Verified 05/31/25 05:36 metoclopramide (From Reglan) AdvReac headache Verified 05/31/25 05:36 Family History Mother Heart disease Pacemaker Grandfather Diabetes Grandmother Diabetes Surgical History History of cholecystectomy History of esophagogastroduodenoscopy (EGD) (~2018) History of colonoscopy (~2017) History of wisdom tooth extraction Social History household members: spouse Smoking Status: Current every day smoker tobacco type: cigarettes alcohol intake: never substance use type: does not use caffeine: Yes what type of physical activity do you participate in: walking seatbelt use: always do you feel safe at home: Yes additional social history: [employer] ROS Constitutional Constitutional: Reports chills and fatigue; Denies fever(s) or malaise Eyes Eyes: Denies blurry vision ENT HEENT: Denies headache(s) or nasal discharge Cardiovascular Cardiovascular: Denies chest pain, dyspnea on exertion or syncope Respiratory/Chest Respiratory/Chest: Denies cough, shortness of breath at rest or shortness of breath with exertion Gastrointestinal Gastrointestinal: Reports abdominal pain, diarrhea, nausea and vomiting; Denies constipation Genitourinary Genitourinary: Denies dysuria Neurologic Neurologic: Denies focal weakness, numbness or tremor(s) Psychiatric Psychiatric: Denies anxiety or depression Vital Signs Vital Signs Vital Signs: 05/31/25 05:36 05/31/25 07:36 05/31/25 08:17 Temperature 96.7 F L 97.8 F Temperature Source Temporal Pulse Rate 91 68 69 Respiratory Rate 24 H 18 18 Respiratory Effort Respiratory Depth Respiratory Pattern Blood Pressure 121/83 H 134/84 H 119/87 H Blood Pressure Mean 95 100 97 Blood Pressure Source Blood Pressure Position Blood Pressure Location Pulse Ox 100 93 98 Oxygen Delivery Method Room Air Room Air 05/31/25 08:38 05/31/25 08:56 Temperature 97.8 F Temperature Source Oral Pulse Rate 74 Respiratory Rate 18 Respiratory Effort Normal Non-Labored Respiratory Depth Normal Respiratory Pattern Normal Blood Pressure 143/78 H Blood Pressure Mean 99 Blood Pressure Source Monitor Blood Pressure Position Semi-Fowlers Blood Pressure Location Right Arm Pulse Ox 97 Oxygen Delivery Method Room Air Room Air Weight Weight: 151 lb 12.8 oz Body Mass Index (BMI) 26.0 Physical Exam Narrative General: Alert, Oriented x3, Cooperative, No apparent distress HEENT: Atraumatic, PERRLA, EOMI, Normocephalic Oral: Dry mucosa Neck: Supple, No JVD Lungs: Clear to auscultation, Normal air movement, No rhonchi, No wheeze, No rales Cardiovascular: Regular rate, Regular Rhythm, Normal S1, Normal S2, No murmurs Abdomen: Soft, generalized tenderness to palpation, Non-Distended, No Hepato-splenomegaly Extremities: No edema, Capillary Refill Less than 3 Seconds Skin: No rashes, No breakdown Musculoskeletal: No Tenderness to Palpation of Joints or Extremities Neurological: No focal neurological deficits, moves all extremities Psych/Mental Status: Normal Affect, Appropriate Results Lab / Micro Data 05/31/25 06:20 05/31/25 06:20 Labs: Laboratory Results - last 24 hr 05/31/25 06:20: WBC 26.0 H, RBC 4.58, Hgb 13.7, Hct 39.1, MCV 85.4, MCH 29.9, MCHC 35.0, RDW Std Deviation 41.8, RDW Coeff of Dimitrios 13.3, Plt Count 427, MPV 9.8, Immature Gran % (Auto) 1.000 H, Neut % (Auto) 87.6 H, Lymph % (Auto) 5.7 L, [place] % (Auto) 5.1, Eos % (Auto) 0.1, Baso % (Auto) 0.5, Absolute Neuts (auto) 22.8 H, Absolute Lymphs (auto) 1.49, Nucleated RBC % 0, Differential Comment SCANNED, Sodium 138, Potassium 3.1 L, Chloride 103, Carbon Dioxide 18.8 L, Anion Gap 17 H, BUN 12, Creatinine 0.64 L, Estim Creat Clear Calc 116.09, Est GFR (MDRD) Non-Af 117, BUN/Creatinine Ratio 18.7, Glucose 174 H, Calcium 9.4, Phosphorus 0.7 L*, Magnesium 1.8, Total Bilirubin < 0.15, AST 17, ALT 13, Alkaline Phosphatase 71, Total Protein 6.7, Albumin 4.2, Globulin 2.5, Albumin/Globulin Ratio 1.7, Lipase 26, Serum , Qual NEGATIVE, Urine Color Yellow, Urine Clarity Clear, Urine pH 5.0, Ur Specific [place] 1.025, Urine Protein 30 H, Urine Glucose (UA) Normal, Urine Ketones 15 H, Urine Occult Blood 50 H, Urine Nitrite Negative, Urine Bilirubin 1 H, Urine Urobilinogen 1 H, Ur Leukocyte Esterase 100 H, Urine RBC 0-5 SEEN, Urine WBC 0-5 SEEN, Ur Squamous Epith Cells 10-25 SEEN, Ur Renal Epithelial Cell 0-5 SEEN, Calcium Oxalate Crystal 1+, Urine Bacteria 3+, Urine Mucus 3+ Imaging Radiology Impression Abdomen/Pelvis CT 05/31/25 05:54 IMPRESSION: No acute abnormality is identified in the abdomen or pelvis. Reading Location: [facility] Assessment & Plan Assessment/Plan (1) Intractable nausea and vomiting: PLAN: Plan 1. Intractable nausea, vomiting and diarrhea with abdominal pain/hypokalemia with hypophosphatemia/GERD ? Will obtain enteric pathogen panel ? Continue aggressive IV fluids ? Will provide potassium phosphate for her phosphorus of 0.7, magnesium is normal. ? Continue with morphine for pain management ? Continue with Zofran and PPI ? Her abdominal pain is closely abdominal wall pain from vomiting 2. Crohn's disease ? Will continue with her home medications ? Does not appear to be in a flare at the moment DVT: Ambulation Charges/Coding Visit Charges Inpatient E&M: 73647 Init Hosp L2
[2025-06-01] MEDS: 0.9% Saline Lock 10 ML Syringe IV ×4 (00:01→14:08)
[2025-06-01 03:55] VITALS: BP 107/53; PULSE 67; RESP 16; TEMP 36.9; O2SAT 100
[2025-06-01] MEDS: 0.9% Normal Saline (1000mL) 1,000 ML 150 ML IV (03:57)
[2025-06-01 08:24] LABS: Hematocrit 31.0 % (37-47); Hemoglobin 10.5 g/dL (12.0-15.0); Immature Granulocytes Count 0.040 X10^3/uL (0.0-0.0); Mean Corp Hgb Conc 33.9 g/dL (32-36); Mean Corpuscular Volume 87.6 fL (81-99); Mean Platelet Vol. 10.6 fl (6.2-12.0); NRBC Flagged by Analyzer 0 % (0-5); Platelet Count 271 K/mm3 (150-450); RBC Distribution Width CV 14.0 % (11.6-14.6); RBC Distribution Width SD 45.1 fl (35.1-43.9); Red Blood Count 3.54 M/mm3 (4.2-5.4); White Blood Count 9.7 K/mm3 (4.4-11.0)
[2025-06-01 08:54] VITALS: BP 110/46; PULSE 73; RESP 16; TEMP 36.9; O2SAT 98
[2025-06-01 09:11] LABS: Magnesium 1.8 mg/dL (1.5-2.2)
[2025-06-01 09:14] LABS: Anion Gap 11 (5-15); BUN 3 mg/dL (4-19); BUN/Creat Ratio 6.9 RATIO (10-20); Calcium,Total 7.9 mg/dL (7.6-11.0); Carbon Dioxide 20.3 mmol/L (21.0-32.0); Chloride 108 mmol/L (98-108); Estimated Creatinine Clearance 143.92 ml/min (50-250); Glucose 90 mg/dL (70-99); Potassium 3.4 mmol/L (3.3-5.1)
--- NOTE | 2025-06-01 09:32 | DCINST_ITS ---
Discharge Instructions DC O2, CPAP, BIPAP needs Home O2 Discharge instructions: No Dressing / Incision Discharge Activity: Return to Normal Activity Dressing / Incision Call your doctor if you observe: Fever of 101 or Higher, Shortness of breath, Dizziness, Fainting spells, Swelling in the ankles, Chest pain and Increased palpitations (irregular heartbeat) Follow Up Care Test Results: Test results from this visit will be discussed in further detail at your follow- up appointment, if applicable. Discharge Plan Admission Admit Date/Time: 05/31/25 08:01 Attending Provider: Alli Wagner Primary Care Provider: Azael Lr Discharge Orders/Prescriptions Prescriptions: Continued alprazolam 1 mg tablet 1 mg PO TID PRN (Reason: anxiety) cetirizine 10 mg tablet 10 mg PO DAILY PRN (Reason: allergy symptoms) pantoprazole 40 mg tablet,delayed release (DR/EC) 40 mg PO QDAY Qty: 90 1RF Rx Instructions: take 30 minutes before breakfast every morning citalopram 20 mg tablet 20 mg PO DAILY acetaminophen 500 mg tablet 1,000 mg PO Q6H PRN (Reason: fever or pain) lisdexamfetamine 30 mg capsule 30 mg PO DAILY ondansetron 4 mg tablet,disintegrating 4 mg PO Q8H PRN (Reason: nausea) diphenoxylate-atropine [Lomotil] 2.5-0.025 mg tablet 1 tab PO 4X/DAY PRN (Reason: diarrhea) promethazine 25 mg tablet 25 mg PO Q6H PRN (Reason: Nausea) cholestyramine (with sugar) [Questran] 4 gram powder in packet 4 g PO DAILY Rx Instructions: administer w/meal; avoid other meds within 1hr before or 4-6hr after dose ondansetron 4 mg tablet,disintegrating 4 mg PO Q8H PRN PRN (Reason: Nausea) Qty: 15 0RF Referrals / Follow Up: Azael Lr MD [Primary Care Provider, Family Practice] - Within 1 Week Disposition Disposition (needs filled in before D/C Order can be placed): Home, Self Care
--- NOTE | 2025-06-01 09:43 | PCM.DC.SUM ---
Providers Date of Admission: 05/31/25 Primary Care Physician: Dr. Azael Lr MD Reason For Visit: ABDOMINAL PAIN Diagnosis Discharge Diagnosis (1) Intractable nausea and vomiting: Status: Acute Code(s): R11.2 - Nausea with vomiting, unspecified Medications at Discharge Home Medications alprazolam 1 mg tablet 1 mg PO TID PRN anxiety 11/15/23 cetirizine 10 mg tablet 10 mg PO DAILY PRN allergy symptoms 11/15/23 pantoprazole 40 mg tablet,delayed release 40 mg PO QDAY #90 tabs 11/09/24 acetaminophen 500 mg tablet 1,000 mg PO Q6H PRN fever or pain 02/25/25 cholestyramine (with sugar) 4 gram powder for susp in a packet (Questran) 4 g PO DAILY 02/25/25 citalopram 20 mg tablet 20 mg PO DAILY 02/25/25 diphenoxylate-atropine 2.5 mg-0.025 mg tablet (Lomotil) 1 tab PO 4X/DAY PRN diarrhea 02/25/25 lisdexamfetamine 30 mg capsule 30 mg PO DAILY 02/25/25 promethazine 25 mg tablet 25 mg PO Q6H PRN Nausea 02/25/25 ondansetron 4 mg disintegrating tablet 4 mg PO Q8H PRN nausea and vomiting #20 tabs 06/01/25 Hospital Course Operations None Procedures None Summary of Care Provided Minutes Spent on Discharge: 33 Hospital Course: Per HPI: ARMIN VIVAS, is a 39 F who presents to the hospital with abdominal pain as well as nausea and vomiting. She does have a history of Crohn's disease so CT scan of her abdomen pelvis were obtained but it did not show any pathology or signs of abdominal inflammation. She did have a leukocytosis of 26 at this time appears to be reactive as she is afebrile. She is dehydrated the creatinine is normal. Phosphorus is 0.7 and her potassium is 3.1 in the emergency room she was given IV fluids and started on potassium phosphate. She says her symptoms started on Saturday and has progressively gotten worse with increasing frequency of her nausea, vomiting, and diarrhea. Hospital Course: 1. Viral gastroenteritis with abdominal wall pain/hypokalemia with hypophosphatemia/GERD?39-year-old female with history of Crohn's disease presents to the hospital with nausea, vomiting, and diarrhea for 4 days. She says it is slowly got worse and because of the violent vomiting she developed abdominal pain which based on physical exam is likely abdominal wall pain. She has significant improvement in her symptoms over the last 24 hours. Her phosphorus was extremely low at 0.7 and this was replaced 2.6 today, will give her a little bit more potassium phosphorus prior to discharge. Leukocytosis completely resolved in the absence of antibiotics, she does not have a UTI she did have squames on her UA despite urine culture being obtained by the ER, she will not need to be treated at this time. I do recommend that she follow-up with her PCP as an outpatient. I discussed with her the plan for discharge today and she expressed understanding of the risk and benefits of going home and would like to go home today. Given that she has abdominal wall pain I do not think that narcotics are in order and can be managed with Tylenol or Advil. Physical Exam Narrative General: Alert, Oriented x3, Cooperative, No apparent distress HEENT: Atraumatic, PERRLA, EOMI, Normocephalic Oral: Dry mucosa Neck: Supple, No JVD Lungs: Clear to auscultation, Normal air movement, No rhonchi, No wheeze, No rales Cardiovascular: Regular rate, Regular Rhythm, Normal S1, Normal S2, No murmurs Abdomen: Soft, minimal generalized tenderness to palpation, Non-Distended, No Hepato-splenomegaly Extremities: No edema, Capillary Refill Less than 3 Seconds Skin: No rashes, No breakdown Musculoskeletal: No Tenderness to Palpation of Joints or Extremities Neurological: No focal neurological deficits, moves all extremities Psych/Mental Status: Normal Affect, Appropriate Weight / BMI Weight Weight: 151 lb 12.8 oz Body Mass Index (BMI) 26.0 ABG / Lab / Microbiology Data 06/01/25 08:07 06/01/25 08:07 Laboratory: Laboratory Results - last 24 hr 06/01/25 05:17: WBC Cancelled, Corrected WBC Cancelled, RBC Cancelled, Hgb Cancelled, Hct Cancelled, MCV Cancelled, MCH Cancelled, MCHC Cancelled, RDW Std Deviation Cancelled, RDW Coeff of Dimitrios Cancelled, Plt Count Cancelled, MPV Cancelled, Immature Gran % (Auto) Cancelled, Neut % (Auto) Cancelled, Lymph % (Auto) Cancelled, [place] % (Auto) Cancelled, Eos % (Auto) Cancelled, Baso % (Auto) Cancelled, Absolute Neuts (auto) Cancelled, Absolute Lymphs (auto) Cancelled, Total Counted Cancelled, Neutrophils % (Manual) Cancelled, Band Neutrophils % Cancelled, Lymphocytes % (Manual) Cancelled, Monocytes % (Manual) Cancelled, Eosinophils % (Manual) Cancelled, Basophils % (Manual) Cancelled, Metamyelocytes % Cancelled, Myelocytes % Cancelled, Promyelocytes % Cancelled, Blast Cells % Cancelled, Plasma Cell % (Manual) Cancelled, Other Cells % Cancelled, Nucleated RBC % Cancelled, Nucleated RBCs/100 WBC Cancelled, Differential Comment Cancelled, Diff Path Review Cancelled, Hypersegmented Neuts Cancelled, Atypical Lymphocytes Cancelled, Reactive Lymphocytes Cancelled, Smudge Cells Cancelled, Toxic Granulation Cancelled, Toxic Vacuolation Cancelled, Dohle Bodies Cancelled, Carlos Rods Cancelled, Platelet Estimate Cancelled, Plt Morphology Comment Cancelled, RBC Morphology Cancelled 06/01/25 05:17: RBC Morphology Cancelled, Polychromasia Cancelled, Hypochromasia Cancelled, Basophilic Stippling Cancelled, Anisocytosis Cancelled, Microcytosis Cancelled, Macrocytosis Cancelled, Spherocytes Cancelled, Sickle Cells Cancelled, Target Cells Cancelled, Tear Drop Cells Cancelled, Ovalocytes Cancelled, Stomatocytes Cancelled, [place] Bodies Cancelled, [place] Cells Cancelled, Bite Cells Cancelled, Crenated Cell Cancelled, Acanthocytes (Spur) Cancelled, Rouleaux Cancelled, Schistocytes Cancelled, Sodium Cancelled, Potassium Cancelled, Chloride Cancelled, Carbon Dioxide Cancelled, Anion Gap Cancelled, BUN Cancelled, Creatinine Cancelled, Estim Creat Clear Calc Cancelled, Est GFR (MDRD) Non-Af Cancelled, BUN/Creatinine Ratio Cancelled, Glucose Cancelled, Calcium Cancelled 06/01/25 08:07: WBC 9.7, RBC 3.54 L, Hgb 10.5 L, Hct 31.0 L, MCV 87.6, MCH 29.7, MCHC 33.9, RDW Std Deviation 45.1 H, RDW Coeff of Dimitrios 14.0, Plt Count 271, MPV 10.6, Immature Gran % (Auto) 0.400, Neut % (Auto) 52.6, Lymph % (Auto) 37.5, [place] % (Auto) 7.4, Eos % (Auto) 1.6, Baso % (Auto) 0.5, Absolute Neuts (auto) 5.1, Absolute Lymphs (auto) 3.65, Nucleated RBC % 0, Sodium 139, Potassium 3.4, Chloride 108, Carbon Dioxide 20.3 L, Anion Gap 11, BUN 3 L, Creatinine 0.51 L, Estim Creat Clear Calc 143.92, Est GFR (MDRD) Non-Af 123, BUN/Creatinine Ratio 6.9 L, Glucose 90, Calcium 7.9, Phosphorus 2.6 L, Magnesium 1.8 Microbiology: Microbiology 05/31/25 23:25 Stool Enteric Bacteriology - Final D/C Instructions Call your doctor if you observe: Fever of 101 or Higher, Shortness of breath, Dizziness, Fainting spells, Swelling in the ankles, Chest pain and Increased palpitations (irregular heartbeat) DC O2, CPAP, BIPAP Needs Home O2 Discharge instructions: No Meaningful Use Info Meaningful Use Meaningful Use Diagnoses (Choose all that apply): None applicable Discharge Plan Admission Admit Date/Time: 05/31/25 08:01 Attending Provider: Alli Wagner Primary Care Provider: Azael Lr Instructions Additional Instructions / Restrictions: Follow-up with your PCP in 3 to 5 days to monitor your electrolytes and renal function. Discharge Orders/Prescriptions Prescriptions: New ondansetron 4 mg tablet,disintegrating 4 mg PO Q8H PRN (Reason: nausea and vomiting) Qty: 20 0RF Continued alprazolam 1 mg tablet 1 mg PO TID PRN (Reason: anxiety) cetirizine 10 mg tablet 10 mg PO DAILY PRN (Reason: allergy symptoms) pantoprazole 40 mg tablet,delayed release (DR/EC) 40 mg PO QDAY Qty: 90 1RF Rx Instructions: take 30 minutes before breakfast every morning citalopram 20 mg tablet 20 mg PO DAILY acetaminophen 500 mg tablet 1,000 mg PO Q6H PRN (Reason: fever or pain) lisdexamfetamine 30 mg capsule 30 mg PO DAILY diphenoxylate-atropine [Lomotil] 2.5-0.025 mg tablet 1 tab PO 4X/DAY PRN (Reason: diarrhea) promethazine 25 mg tablet 25 mg PO Q6H PRN (Reason: Nausea) cholestyramine (with sugar) [Questran] 4 gram powder in packet 4 g PO DAILY Rx Instructions: administer w/meal; avoid other meds within 1hr before or 4-6hr after dose Discontinued ondansetron 4 mg tablet,disintegrating 4 mg PO Q8H PRN (Reason: nausea) ondansetron 4 mg tablet,disintegrating 4 mg PO Q8H PRN PRN (Reason: Nausea) Qty: 15 0RF Referrals / Follow Up: Azael Lr MD [Primary Care Provider, Family Practice] - Within 1 Week Disposition Disposition (needs filled in before D/C Order can be placed): Home, Self Care Charges/Coding Visit Charges Inpatient E&M: 50155 Disch Hosp >30min
--- NOTE | 2025-06-01 10:09 | PHA.DC.MR.R ---
Pharmacy [place] Med Reconciliation Pharmacy Service has performed discharge medication reconciliation for this patient. The patient's discharge medication list was reviewed for discrepancies and discrepancies were resolved. Medications at Discharge Home Medications alprazolam 1 mg tablet 1 mg PO TID PRN anxiety 11/15/23 cetirizine 10 mg tablet 10 mg PO DAILY PRN allergy symptoms 11/15/23 pantoprazole 40 mg tablet,delayed release 40 mg PO QDAY #90 tabs 11/09/24 acetaminophen 500 mg tablet 1,000 mg PO Q6H PRN fever or pain 02/25/25 cholestyramine (with sugar) 4 gram powder for susp in a packet (Questran) 4 g PO DAILY 02/25/25 citalopram 20 mg tablet 20 mg PO DAILY 02/25/25 diphenoxylate-atropine 2.5 mg-0.025 mg tablet (Lomotil) 1 tab PO 4X/DAY PRN diarrhea 02/25/25 lisdexamfetamine 30 mg capsule 30 mg PO DAILY 02/25/25 promethazine 25 mg tablet 25 mg PO Q6H PRN Nausea 02/25/25 ondansetron 4 mg disintegrating tablet 4 mg PO Q8H PRN nausea and vomiting #20 tabs 06/01/25
[2025-06-01] MEDS: Potassium Phosphate 15 MM in 0.9% Normal Saline (250mL Bag) 250 ML 125 MM IV (10:10)
[2025-06-01 14:10] VITALS: BP 118/79; PULSE 67; RESP 16; TEMP 36.7; O2SAT 98
[2025-06-01] MEDS: Lidocaine 2% Viscous15 ML UDC 15 ML PO (15:37)
== END 2025-06-01 18:04 | disposition home or self-care (01) ==
LOC: ED 08:05 → MS3 08:18
PROVIDERS: Admitting Provider Family Medicine; Emergency Provider Emergency Medicine; PCP Family Medicine; Visit Provider Family Medicine
DX: A08.4 Viral intestinal infection, unspecified (principal); K50.90 Crohn's disease, unspecified, without complications; F17.210 Nicotine dependence, cigarettes, uncomplicated; E87.6 Hypokalemia; F41.9 Anxiety disorder, unspecified; K21.9 Gastro-esophageal reflux disease without esophagitis; Z79.899 Other long term (current) drug therapy; E83.39 Other disorders of phosphorus metabolism
CPT/HCPCS: 36415; 74177; 80048; 80053; 81001; 83690; 83735; 84100; 84703; 85025; 87086; 87088; 87506; 96361; 96365; 96366; 96375; 96376; 97802; 99221; 99285; Q9967; A4216; G0378; J2405

== ENCOUNTER 2025-07-02 16:14 | Emergency (ER) | payer SELFPAY ==
[2025-07-02 16:15] VITALS: BP 126/49; PULSE 74; RESP 16; TEMP 36.8; O2SAT 100; BMI 25.8
--- NOTE | 2025-07-02 16:22 | EX.ED.DYSGE1 ---
HPI History of Present Illness Chief Complaint: General Illness Informant: patient Onset/Context/Timing Onset: Today Context: Sudden Onset Timing: Continuous Quality: Sharp, aching Location: Abdomen Worsened by: Nothing Relieved by: Bentyl Narrative Narrative: Patient presents with abdominal pain that began today. Patient states she has a history of Crohn's disease and states this feels similar to prior flareups of her Crohn's. Patient states has been taking Bentyl with some relief. Patient states her pain is diffuse across her entire abdomen. Patient describes it as sharp and aching. Patient states it is constant. Patient states nothing seems to help with it. Patient admits to some nausea and vomiting. Patient denies any diarrhea or melena. Patient states she has had some blood in her bowel movements but think she has a hemorrhoid. Patient does admit to some dysuria but denies any frequency or urgency. Patient states her last menstrual period was 06/14/2025. Patient states her periods lately have been more frequent. Prior similar symptoms: Yes (With Crohn's disease) PFSH PFS Medical History History of steroid therapy Dietary restriction Hidradenitis suppurativa Wears glasses Wears contact lenses History of ulceration Gastric reflux Smoker History of irregular heartbeat Groin abscess Left ovarian cyst Stephanie Tobar infection Colitis Gestational diabetes Crohns disease Depression Anxiety Home Medications ?Medication ?Instructions ?Recorded ?Last Taken ?Type alprazolam 1 mg tablet 1 mg PO TID PRN anxiety 11/15/23 07/09/24 History cetirizine 10 mg tablet 10 mg PO DAILY PRN allergy symptoms 11/15/23 07/09/24 History pantoprazole 40 mg tablet,delayed 40 mg PO QDAY #90 tabs 11/09/24 02/24/25 Rx release acetaminophen 500 mg tablet 1,000 mg PO Q6H PRN fever or pain 02/25/25 02/25/25 History cholestyramine (with sugar) 4 gram 4 g PO DAILY 02/25/25 02/24/25 History powder for susp in a packet (Questran) citalopram 20 mg tablet 20 mg PO DAILY 02/25/25 02/24/25 History diphenoxylate-atropine 2.5 1 tab PO 4X/DAY PRN diarrhea 02/25/25 Unknown History mg-0.025 mg tablet (Lomotil) lisdexamfetamine 30 mg capsule 30 mg PO DAILY 02/25/25 02/24/25 History promethazine 25 mg tablet 25 mg PO Q6H PRN Nausea 02/25/25 02/25/25 History ondansetron 4 mg disintegrating 4 mg PO Q8H PRN nausea and 06/01/25 Unknown Rx tablet vomiting #20 tabs ondansetron 4 mg disintegrating 4 mg PO Q8H PRN PRN Nausea #10 tabs 07/02/25 Unknown Rx tablet Allergy/AdvReac Type Severity Reaction Status Date / Time nectarine Allergy Angioedema Verified 07/02/25 16:16 metoclopramide (From Reglan) AdvReac headache Verified 07/02/25 16:16 Family History Mother Heart disease Pacemaker Grandfather Diabetes Grandmother Diabetes Surgical History History of cholecystectomy History of esophagogastroduodenoscopy (EGD) (~2017) History of colonoscopy (~2016) History of wisdom tooth extraction Social History household members: spouse Smoking Status: Current every day smoker tobacco type: cigarettes alcohol intake: never substance use type: does not use caffeine: Yes what type of physical activity do you participate in: walking seatbelt use: always do you feel safe at home: Yes additional social history: [employer] [facility] ROS ED Constitutional Constitutional ED: Denies chills or fever(s) Eyes Eyes: Denies blurry vision or change in vision ENT ENT ED: Reports rhinorrhea; Denies sore throat Cardiovascular Cardiovascular: Denies chest pain or palpitations Respiratory/Chest Respiratory/Chest: Denies cough or dyspnea Gastrointestinal Gastrointestinal: Reports abdominal pain, constipation, nausea and vomiting Genitourinary Genitourinary ED: Reports dysuria; Denies hematuria Musculoskeletal Musculoskeletal: Denies back pain or neck pain Integumentary Denies abscess or rash Neurologic Neurologic: Denies headache(s) or weakness Allergic/Immunologic Allergic/Immunologic ED: Denies mouth swelling or urticaria EXAM Physical Exam Const Vital Signs: 07/02/25 16:15 07/02/25 16:22 07/02/25 18:14 Temperature 98.2 F Temperature Source Oral Pulse Rate 74 59 L Respiratory Rate 16 16 Respiratory Effort Normal Short of Breath Respiratory Pattern Normal Blood Pressure 126/49 H 114/81 H Blood Pressure Mean 74 92 Pulse Ox 100 100 Oxygen Delivery Method Room Air Room Air 07/02/25 19:55 Temperature Temperature Source Pulse Rate 70 Respiratory Rate 69 H Respiratory Effort Respiratory Pattern Blood Pressure 105/65 Blood Pressure Mean 78 Pulse Ox Oxygen Delivery Method Positive well nourished and well developed Constitutional Narrative: BMI is 25.8. General Appearance ED: well developed and NAD HEENT Reports moist mucous membranes Neck supple and no JVD Resp normal respiratory effort and clear to auscultation bilaterally Cardio regular rate and regular rhythm GI non-distended GI Narrative: Chaperoned rectal exam did not show any hemorrhoids or perirectal abscess. There is no bleeding noted. There is no tenderness noted. Palpation: soft and tender epigastric, LLQ, RLQ, LUQ, RUQ, periumbilical and suprapubic; Negative for guarding or rebound tenderness present Extremity normal to inspection General Extremety ED: Negative for edema or tenderness General Extremity: Negative for edema Neuro oriented x3, CN's II-XII intact bilaterally and no sensory deficits noted Sensorium / Orientation: alert Motor Exam: strength 5/5 throughout Psych mental status grossly normal MDM MDM MDM Narrative Medical decision making narrative: Differential diagnosis includes Crohn's exacerbation, viral illness, anxiety, electrolyte abnormality, dehydration, urinary tract infection, bowel obstruction, perforation, and perirectal abscess. CBC will be obtained to assess for leukocytosis and anemia. Comprehensive metabolic profile will be obtained to assess for hepatic function, renal function, and electrolyte abnormality. Lipase will be obtained to assess for pancreatitis. Urinalysis will be obtained to assess for urinary tract infection and hematuria. Serum hCG will be obtained to assess for . CT scan of the abdomen and pelvis will be obtained to assess for bowel obstruction, perforation, and abscess. History & Record Review Additional record(s) reviewed:: Prior inpatient record, Prior outpatient record, Prior ED visit and Prior labs Lab Data Attestation: I reviewed the patient's lab results. Lab results narrative: CBC was reviewed. There is a mild leukocytosis of 11.6. The remainder is within normal limits. Comprehensive metabolic profile was reviewed and was within normal limits. Lipase was reviewed and was normal at 25. Serum hCG was reviewed and was negative. Urinalysis was reviewed. There is no evidence of urinary tract infection or hematuria. Labs: Laboratory Results - last 24 hr 07/02/25 07/02/25 16:51 17:43 WBC 11.6 H RBC 4.62 Hgb 13.3 Hct 38.9 MCV 84.2 MCH 28.8 MCHC 34.2 RDW Std Deviation 41.4 RDW Coeff of Dimitrios 13.4 Plt Count 334 MPV 9.5 Immature Gran % (Auto) 0.300 Neut % (Auto) 53.3 Lymph % (Auto) 37.1 [place] % (Auto) 7.2 Eos % (Auto) 1.5 Baso % (Auto) 0.6 Absolute Neuts (auto) 6.2 Absolute Lymphs (auto) 4.29 Nucleated RBC % 0 Sodium 138 Potassium 3.4 Chloride 106 Carbon Dioxide 21.1 Anion Gap 11 BUN 12 Creatinine 0.52 L Estim Creat Clear Calc 140.57 Est GFR (MDRD) Non-Af 123 BUN/Creatinine Ratio 23.1 H Glucose 90 Calcium 9.1 Total Bilirubin 0.32 AST 20 ALT 14 Alkaline Phosphatase 69 Total Protein 6.8 Albumin 4.3 Globulin 2.6 Albumin/Globulin Ratio 1.7 Lipase 25 Serum , Qual NEGATIVE Urine Color Straw Urine Clarity Sl. Cloudy Urine pH 7.0 Ur Specific [place] 1.005 Urine Protein 15 H Urine Glucose (UA) Normal Urine Ketones 15 H Urine Occult Blood 10 H Urine Nitrite Negative Urine Bilirubin Negative Urine Urobilinogen Normal Ur Leukocyte Esterase Negative Urine RBC 0-5 SEEN Urine WBC 0-5 SEEN Ur Squamous Epith Cells 0-5 SEEN Amorphous Sediment 1+ Urine Bacteria 0 SEEN Urine Mucus 0 SEEN Radiography Diagnostic Testing: Clinical Impression(s) from Imaging Studies Abdomen/Pelvis CT 07/02/25 16:43 IMPRESSION: No acute abnormality. Probably physiologic left adnexal cyst. Reading Location: [facility] CT scan of the abdomen and pelvis was obtained. There is no acute abnormality noted. There is a left adnexal cyst noted. There is no evidence of bowel obstruction or perforation. There is no free air or free fluid. This was interpreted by the radiologist and was also independently reviewed by myself. Treatment and Re-Evaluation :: Patient was given IV fluids, morphine, and Zofran. Patient was feeling better on reevaluation. Patient was advised of her findings. Patient was given a prescription for Zofran. Patient was instructed to start with a liquid diet and advance as tolerated. Patient was instructed to follow-up with her primary care physician in 5 to 7 days. Patient understood and was agreeable with the plan. All questions were answered. Discharge Plan Triage Chief Complaint: General Illness ED Provider: Haris Smith Dx/Rx/DC Orders Clinical Impression: Abdominal pain, Nausea and vomiting, Hx of Crohn's disease Instructions: ED Abdominal Pain Unkn Cause Fem Prescriptions: New ondansetron 4 mg tablet,disintegrating 4 mg PO Q8H PRN PRN (Reason: Nausea) Qty: 10 0RF No Action alprazolam 1 mg tablet 1 mg PO TID PRN (Reason: anxiety) cetirizine 10 mg tablet 10 mg PO DAILY PRN (Reason: allergy symptoms) pantoprazole 40 mg tablet,delayed release (DR/EC) 40 mg PO QDAY Qty: 90 1RF Rx Instructions: take 30 minutes before breakfast every morning citalopram 20 mg tablet 20 mg PO DAILY acetaminophen 500 mg tablet 1,000 mg PO Q6H PRN (Reason: fever or pain) lisdexamfetamine 30 mg capsule 30 mg PO DAILY diphenoxylate-atropine [Lomotil] 2.5-0.025 mg tablet 1 tab PO 4X/DAY PRN (Reason: diarrhea) promethazine 25 mg tablet 25 mg PO Q6H PRN (Reason: Nausea) cholestyramine (with sugar) [Questran] 4 gram powder in packet 4 g PO DAILY Rx Instructions: administer w/meal; avoid other meds within 1hr before or 4-6hr after dose ondansetron 4 mg tablet,disintegrating 4 mg PO Q8H PRN (Reason: nausea and vomiting) Qty: 20 0RF Primary Care Provider: Azael Lr Referrals: Azael Lr MD [Primary Care Provider, Family Practice] - 5-7 Days Print Language: Ukrainian Disposition Disposition: Home, Self Care
--- NOTE | 2025-07-02 16:43 | CT_ITS ---
PROCEDURE: CT/Abdomen/Pelvis W IV Cont ONLY
[2025-07-02] MEDS: 0.9% Normal Saline (1000mL) 1,000 ML 999 ML IV (16:52)
[2025-07-02 17:00] LABS: Hematocrit 38.9 % (37-47); Hemoglobin 13.3 g/dL (12.0-15.0); Immature Granulocytes Count 0.030 X10^3/uL (0.0-0.0); Mean Corp Hgb Conc 34.2 g/dL (32-36); Mean Corpuscular Volume 84.2 fL (81-99); Mean Platelet Vol. 9.5 fl (6.2-12.0); NRBC Flagged by Analyzer 0 % (0-5); Platelet Count 334 K/mm3 (150-450); RBC Distribution Width CV 13.4 % (11.6-14.6); RBC Distribution Width SD 41.4 fl (35.1-43.9); Red Blood Count 4.62 M/mm3 (4.2-5.4); White Blood Count 11.6 K/mm3 (4.4-11.0)
[2025-07-02 17:08] LABS: Internal QC Validated? YES +Cl - CLEAR BKGD; Pregnancy, Serum, hCG Quali. NEGATIVE Negative; Record Kit Lot#, Serum Preg. 980607
[2025-07-02 17:33] LABS: AST(SGOT) 20 U/L (<=31); Alanine Aminotransfer ALT/SGPT 14 U/L (<=34); Albumin, Serum 4.3 g/dL (3.5-5.0); Alkaline Phosphatase 69 U/L (35-104); Anion Gap 11 (5-15); BUN 12 mg/dL (4-19); BUN/Creat Ratio 23.1 RATIO (10-20); Calcium,Total 9.1 mg/dL (7.6-11.0); Carbon Dioxide 21.1 mmol/L (21.0-32.0); Chloride 106 mmol/L (98-108); Estimated Creatinine Clearance 140.57 ml/min (50-250); Globulin 2.6 g/dL (2.2-4.2); Glucose 90 mg/dL (70-99); Lipase 25 U/L (13-75); Potassium 3.4 mmol/L (3.3-5.1)
[2025-07-02 17:49] LABS: Mucous, Urine 0 SEEN /hpf (<or=2+)
[2025-07-02 17:58] LABS: Color, Urine Straw (Yellow); Glucose, Dipstick Normal (Normal); Ketone-Dipstick 15 mg/dl (Negative); Leukocyte Esterase-Dipstick Negative /ul (Negative); Nitrite-Dipstick Negative (Negative); Occult Blood-Urine 10 /ul (Negative); Protein-Dipstick 15 mg/dl (Negative); Specific Gravity, Urine 1.005 (1.002-1.030); Urine Bilirubin Dipstick Negative (Negative)
[2025-07-02 18:14] VITALS: BP 114/81; PULSE 59; RESP 16; O2SAT 100
[2025-07-02 18:33] LABS: Red Blood Cells-Urine 0-5 SEEN /hpf (0-5); Squamous Epithelial Cells - UA 0-5 SEEN /hpf (5-10)
[2025-07-02 19:55] VITALS: BP 105/65; PULSE 70; RESP 69
[2025-07-02 20:08] VITALS: BP 105/65; PULSE 62; RESP 14; TEMP 36.6; O2SAT 98
== END 2025-07-02 20:21 | disposition home or self-care (01) ==
PROVIDERS: Emergency Provider Emergency Medicine; PCP Family Medicine; Visit Provider Emergency Medicine
DX: R10.9 Unspecified abdominal pain (principal); K50.90 Crohn's disease, unspecified, without complications; R11.2 Nausea with vomiting, unspecified; F17.210 Nicotine dependence, cigarettes, uncomplicated; R30.0 Dysuria; K21.9 Gastro-esophageal reflux disease without esophagitis; D72.829 Elevated white blood cell count, unspecified; N83.202 Unspecified ovarian cyst, left side
CPT/HCPCS: 74177; 80053; 81001; 83690; 84703; 85025; 96361; 96374; 96375; 96376; 99284; Q9967; J2405